=== PATIENT | female | born 1955 | race Caucasian/White ===

== ENCOUNTER → 2017-01-18 | Outpatient (REF) | payer MEDICARE, OTHER | LOC: M LAB REF 15:08 | PROVIDERS: ATTEND Nurse Practitioner Family | DX: E83.52 Hypercalcemia (principal) ==

== ENCOUNTER 2017-04-21 18:51 | Emergency (ER) | payer MEDICARE, OTHER ==
[2017-04-21] MEDS: METOPROLOL 5 MG/5 ML VIAL IV ×2 (19:09→20:40)
[2017-04-21] MEDS: ASPIRIN 81 MG CHEW TABLET PO (19:15)
[2017-04-21 19:36] LABS: BASO % 0.2 % (0.0-1.0); EOS # 0.1 10^3/uL (0.0-0.50); HEMATOCRIT 36.6 % (36.0-47.0); HEMOGLOBIN 12.3 g/dl (12.0-16.0); IMMATURE GRANULOCYTE % 0.2 % (0-0); LYMPH # 1.9 10^3/uL (1.5-4.5); LYMPH % 21.2 % (24.0-44.0); MEAN CORPUSCULAR HEMOGLOBIN 32.7 pg (27.0-33.0); MEAN CORPUSCULAR HGB CONC 33.6 g/dl (32.0-36.5); MEAN CORPUSCULAR VOLUME 97.3 fl (80.0-96.0); MONO # 0.6 10^3/uL (0.0-0.8); MONO % 6.8 % (0.0-5.0); NEUTROPHILS # 6.2 10^3/uL (1.8-7.7); NEUTROPHILS % 70.6 % (36.0-66.0); PLATELET COUNT, AUTOMATED 266 10^3/uL (150-450); RED BLOOD COUNT 3.76 10^6/uL (4.00-5.40); RED CELL DISTRIBUTION WIDTH 13.5 % (11.5-14.5); WHITE BLOOD COUNT 8.8 10^3/uL (4.0-10.0)
[2017-04-21 19:43] LABS: INR 2.33; PROTHROMBIN TIME 26.5 SECONDS (12.4-14.5)
[2017-04-21 19:44] LABS: PARTIAL THROMBOPLASTIN TIME 54.9 SECONDS (26.8-37.9)
[2017-04-21 20:01] LABS: ALBUMIN 3.3 GM/DL (3.2-5.2); ALBUMIN/GLOBULIN RATIO 0.75 (1.00-1.93); ALKALINE PHOSPHATASE 99 U/L (45-117); ALT/SGPT 23 U/L (12-78); ANION GAP 9 MEQ/L (8-16); AST/SGOT 32 U/L (7-37); BILIRUBIN,DIRECT 0.1 MG/DL (0.0-0.2); BILIRUBIN,TOTAL 0.4 MG/DL (0.2-1.0); BLOOD UREA NITROGEN 21 MG/DL (7-18); CALCIUM LEVEL 10.3 MG/DL (8.8-10.2); CARBON DIOXIDE LEVEL 28 MEQ/L (21-32); CHLORIDE LEVEL 106 MEQ/L (98-107); CPK CREATINE PHOSPHOKINASE 53 U/L (26-192); CREATININE FOR GFR 1.01 MG/DL (0.55-1.02); GLOMERULAR FILTRATION RATE 59.1 (>45); GLUCOSE, FASTING 100 MG/DL (80-110); LIPASE 186 U/L (73-393); MB/CK RELATIVE INDEX 1.88 (< OR =4); NT-PRO BNP 886 PG/ML (<125); POTASSIUM SERUM 4.3 MEQ/L (3.5-5.1); SODIUM LEVEL 143 MEQ/L (136-145); TOTAL PROTEIN 7.7 GM/DL (6.4-8.2); TROPONIN I < 0.02 NG/ML (< 0.10)
[2017-04-21] MEDS ORDERED: ISOVUE-370 76% 100ML VIAL (Q9967) As Ordered (20:17)
[2017-04-21] MEDS: METOPROLOL SUCC *XL* 25MG TAB (TopROL *XL*) PO (22:00)
[2017-04-21] MEDS: FUROSEMIDE 20 MG/2 ML VIAL (J1940) IV (22:15)
== END 2017-04-21 22:47 | disposition home or self-care (01) ==
LOC: M ED 18:51
DX: I48.91 Unspecified atrial fibrillation (principal); R06.02 Shortness of breath; I82.509 Chronic embolism and thrombosis of unspecified deep veins of unspecified lower extremity; Z86.711 Personal history of pulmonary embolism; Z79.899 Other long term (current) drug therapy; Z79.01 Long term (current) use of anticoagulants; F17.210 Nicotine dependence, cigarettes, uncomplicated
CPT/HCPCS: Q9967

== ENCOUNTER → 2018-11-27 | Outpatient (REF) | payer MEDICARE, OTHER ==
[~2018-11-27] MED LIST: ACET-897 PO; ATOR1TAB21 PO; COUM1TAB17 PO; COUM2.5T17 PO; ECOT81TA5 PO; FLEC10TA GT; FLEC1TAB PO; FLUO20CA19 PO; HYDR25TAB PO; METH10TA PO; METO1TAB32 PO; METO1TAB87 PO; MV-M1TAB13 PO; RANI150T PO; RANI150T14 PO; SPIR1CAP INH; VITA-157 PO; VITAE40CA PO; WARF-23 PO; [UNRECOGNIZED DRUG - CODE] PO
== END ==
LOC: M LAB REF 12:31
PROVIDERS: ATTEND Nurse Practitioner Family
DX: E83.52 Hypercalcemia (principal)

== ENCOUNTER 2019-02-22 10:56 | Emergency (ER) | payer MEDICARE, OTHER ==
[~2019-02-22] VITALS: Ht 165.1 cm; Wt 102.3 kg
[~2019-02-22 10:56] MED LIST changes: -ACET-897 PO; -ATOR1TAB21 PO; -ECOT81TA5 PO; -FLEC1TAB PO; -FLUO20CA19 PO; -HYDR25TAB PO; -METH10TA PO; -METO1TAB87 PO; -MV-M1TAB13 PO; -RANI150T14 PO; -SPIR1CAP INH; -VITA-157 PO; -VITAE40CA PO; -WARF-23 PO; -[UNRECOGNIZED DRUG - CODE] PO
[2019-02-22 11:36] LABS: BASO % 0.2 % (0.0-1.0); EOS # 0.1 10^3/uL (0.0-0.5); EOS % 1.1 % (0.0-3.0); HEMOGLOBIN 11.4 g/dl (12.0-15.5); LYMPH # 1.1 10^3/uL (1.5-5.0); LYMPH % 19.7 % (24.0-44.0); MEAN CORPUSCULAR HGB CONC 31.7 g/dl (32.0-36.5); MEAN CORPUSCULAR VOLUME 104.3 fl (80.0-96.0); MONO # 0.4 10^3/uL (0.0-0.8); MONO % 7.9 % (0.0-5.0); NEUTROPHILS # 3.9 10^3/uL (1.5-8.5); NEUTROPHILS % 70.7 % (36.0-66.0); PLATELET COUNT, AUTOMATED 214 10^3/uL (150-450); RED BLOOD COUNT 3.45 10^6/uL (4.00-5.40); WHITE BLOOD COUNT 5.5 10^3/uL (4.0-10.0)
--- NOTE | 2019-02-22 11:39 | REP ---
Portable chest x-ray: Single view. History: Chest pain. Comparison chest x-ray: April 21, 2017. Findings: There is moderate cardiac enlargement again noted. There is some linear fibrosis in the left perihilar region and left base unchanged. Chronic increased markings seen in the right base as well. No acute infiltrate is seen. Pulmonary vasculature is cephalized. No pleural effusion seen. Impression: Moderate cardiac enlargement. Left perihilar and bibasilar linear scarring. Pulmonary vascular cephalization. No evidence of pulmonary edema or pleural effusion. Electronically Signed by Hubert Rodriguez MD 02/22/2019 11:31 A
[2019-02-22] MEDS ORDERED: VITA-157 PO (11:41)
[2019-02-22] MEDS ORDERED: HYDR25TAB PO (11:41)
[2019-02-22] MEDS ORDERED: METH10TA PO (11:41)
[2019-02-22] MEDS ORDERED: SPIR1CAP INH (11:41)
[2019-02-22] MEDS ORDERED: MV-M1TAB13 PO (11:41)
[2019-02-22] MEDS ORDERED: ECOT81TA5 PO (11:41)
[2019-02-22] MEDS ORDERED: [UNRECOGNIZED DRUG - CODE] PO (11:41)
[2019-02-22] MEDS ORDERED: RANI150T14 PO (11:41)
[2019-02-22] MEDS ORDERED: FLUO20CA19 PO (11:41)
[2019-02-22] MEDS ORDERED: VITAE40CA PO (11:41)
[2019-02-22] MEDS ORDERED: ATOR1TAB21 PO (11:41)
[2019-02-22] MEDS ORDERED: WARF-23 PO (11:41)
[2019-02-22] MEDS ORDERED: ACET-897 PO (11:41)
[2019-02-22] MEDS ORDERED: COUM1TAB17 PO (11:41)
[2019-02-22] MEDS ORDERED: METO1TAB87 PO (11:41)
[2019-02-22] MEDS ORDERED: FLEC1TAB PO (11:41)
[2019-02-22] MEDS ORDERED: ASPIRIN 81 MG CHEW TABLET PO ONE (12:30)
[2019-02-22] MEDS: NITROGLYCERIN 0.4 MG SUBL TABLET SL PRN ×2 (12:33→12:42)
[2019-02-22 12:42] VITALS: BP 122/58
[2019-02-22] MEDS ORDERED: ACETAMINOPHEN TAB 650MG DOSE (2X325MG) PO ONE (12:45)
[2019-02-22 13:14] LABS: BLOOD UREA NITROGEN 17 MG/DL (7-18); CARBON DIOXIDE LEVEL 24 MEQ/L (21-32); CHLORIDE LEVEL 111 MEQ/L (98-107); CK-MB VALUE MASS < 1.0 NG/ML (<3.6); CPK CREATINE PHOSPHOKINASE 49 U/L (26-192); CREATININE FOR GFR 0.76 MG/DL (0.55-1.30); FREE T4 1.22 NG/DL (0.76-1.46); GLOMERULAR FILTRATION RATE > 60.0 (>45); GLUCOSE, FASTING 86 MG/DL (70-100); MAGNESIUM LEVEL 1.7 MG/DL (1.8-2.4); MB/CK RELATIVE INDEX 2.04 (< OR =4); POTASSIUM SERUM 4.4 MEQ/L (3.5-5.1); SODIUM LEVEL 145 MEQ/L (136-145); TROPONIN I < 0.02 NG/ML (< 0.10)
[2019-02-22] MEDS ORDERED: ISOVUE-370 76% 100ML VIAL (Q9967) As Ordered ONE (13:27)
[2019-02-22] MEDS ORDERED: MAGNESIUM OXIDE 400 MG TAB (MAG-OX) PO ONE (13:30)
--- NOTE | 2019-02-22 17:43 | REP ---
CT pulmonary angiogram: With IV contrast. History: Chest pain and shortness of breath. Comparison studies: Comparison study April 21, 2017. Contrast dose: 75 ML of Isovue [address] technique: Helical scanning is acquired and overlapping 1.5 mm and contiguous 3 mm axial images are reformatted. In addition, maximum intensity projection and multiplanar re-formation images are generated in sagittal and coronal imaging projections. CT pulmonary angiographic findings: There is good opacification of the pulmonary arterial tree. There is no CT evidence of pulmonary embolism. No evidence of aortic aneurysm or dissection is seen. There is no pleural or pericardial effusion. There is a band of linear atelectasis anteriorly in the left upper lobe. There is a similar linear band of atelectasis in the right middle lobe. No other pulmonary opacity is seen. There is linear fibrosis in the left lateral pleural angle posteriorly. There are stable bilateral hilar lymph nodes. No mediastinal adenopathy is seen. There is an aorticopulmonary window region lymph node which is unchanged showing short axis dimension of 8 mm. No bony destructive lesion is appreciated. The thyroid gland is moderately enlarged and virtually envelops the trachea circumferentially above the thoracic inlet. This appears to be unchanged. There are clips in the gallbladder fossa. There is a low-density nodule in the left adrenal gland measuring 3.2 x 2.2 cm. This appears to be unchanged from prior study of April 21, 2017. Impression: No CT evidence of pulmonary embolism. Cardiomegaly is observed unchanged. There are bilateral discoid atelectatic changes. Moderate goiter is seen at the thoracic inlet nearly surrounding the trachea unchanged. Scattered stable hilar and mediastinal lymph nodes. No acute infiltrate. Electronically Signed by Hubert Rodriguez MD 02/22/2019 06:43 P
[2019-02-22 17:55] LABS: CK-MB VALUE MASS < 1.0 NG/ML (<3.6); CPK CREATINE PHOSPHOKINASE 45 U/L (26-192); MB/CK RELATIVE INDEX 2.22 (< OR =4); TROPONIN I < 0.02 NG/ML (< 0.10)
[2019-02-22 18:44] VITALS: BP 139/61
--- NOTE | 2019-02-23 10:37 | ED PDOC ---
Post-Departure Follow-Up dr pelaez faxed cat chest for fu Italo Obregon MD Feb 23, 2019 10:37
--- NOTE | 2019-02-23 13:02 | ECGEPIP ---
[facility] - ED Test Date: 2019-02-22 Pat Name: JUAN CARLOS SMITH Department: Room: - Gender: Female Orthopaedic Physician Assistant: ABI : 1955 Requested By: DOREEN Dewitt Order Number: [id number] Reading MD: Dionne Rose Measurements Intervals [place] Rate: 61 P: 65 W[place]: 192 QRS: 132 QRSD: 172 T: 43 QT: 471 QTc: 478 Interpretive Statements SINUS RHYTHM INDETERMINATE AXIS RIGHT BUNDLE BRANCH BLOCK PRIOR ATRIAL FIBRILLATION 04/21/17 Electronically Signed on 02-23-2019 13:01:40 EST by Dionne Rose
--- NOTE | 2019-02-23 13:07 | ECGEPIP ---
[facility] - ED Test Date: 2019-02-22 Pat Name: JUAN CARLOS SMITH Department: Room: - Gender: Female Clerk Carrier: CT : 1955 Requested By: JERONIMO Cope Order Number: [id number] Reading MD: Dionne Rose Measurements Intervals [place] Rate: 58 P: 64 ID: 187 QRS: 60 QRSD: 166 T: 3 QT: 458 QTc: 451 Interpretive Statements SINUS BRADYCARDIA WITH OCCASIONAL VENTRICULAR PREMATURE COMPLEXES INDETERMINATE AXIS RIGHT BUNDLE BRANCH BLOCK PROLONGED QTC COMPARED 02/22/19 Electronically Signed on 02-23-2019 13:07:18 EST by Dionne Rose
[2019-02-27 00:06] LABS: FLECAINIDE LEVEL 0.24 ug/mL (0.20-1.00)
== END 2019-02-22 18:47 | disposition home or self-care (01) ==
LOC: M ED 10:56
DX: R00.2 Palpitations (principal); R07.9 Chest pain, unspecified; R00.1 Bradycardia, unspecified; I45.10 Unspecified right bundle-branch block; I51.7 Cardiomegaly; I28.8 Other diseases of pulmonary vessels; I48.91 Unspecified atrial fibrillation; K21.9 Gastro-esophageal reflux disease without esophagitis; M54.9 Dorsalgia, unspecified; Z86.711 Personal history of pulmonary embolism; Z82.49 Family history of ischemic heart disease and other diseases of the circulatory system; Z79.82 Long term (current) use of aspirin; Z79.01 Long term (current) use of anticoagulants; Z79.899 Other long term (current) drug therapy; Z88.6 Allergy status to analgesic agent
CPT/HCPCS: 36415; 71045; 71275; 80048; 82550; 82553; 83735; 84100; 84439; 84443; 84484; 85025; 93005; 93041; 94760; 99285; G0480; Q9967

== ENCOUNTER → 2019-04-24 | Outpatient (REF) | payer MEDICARE, OTHER ==
[~2019-04-24] MED LIST changes: +ACET-897 PO; +ATOR1TAB21 PO; +ECOT81TA5 PO; +FLEC1TAB PO; +FLUO20CA19 PO; +HYDR25TAB PO; +METH10TA PO; +METO1TAB87 PO; +MV-M1TAB13 PO; +RANI150T14 PO; +SPIR1CAP INH; +VITA-157 PO; +VITAE40CA PO; +WARF-23 PO; +[UNRECOGNIZED DRUG - CODE] PO
== END ==
LOC: M LAB REF 16:43
PROVIDERS: ATTEND Nurse Practitioner Family
DX: E83.52 Hypercalcemia (principal)

== ENCOUNTER 2019-06-27 10:27 | Emergency (ER) | payer MEDICARE, OTHER ==
[~2019-06-27] VITALS: Ht 167.6 cm; Wt 106.6 kg
[~2019-06-27 10:27] MED LIST changes: -FLUO20CA19 PO; +FLUO20CA22 PO; +VITA-1 PO; -VITAE40CA PO
[2019-06-27] MEDS ORDERED: FAMO40TA3 (10:55)
[2019-06-27 11:08] LABS: BASO % 0.4 % (0.0-1.0); EOS # 0.1 10^3/uL (0.0-0.5); EOS % 2.2 % (0.0-3.0); HEMATOCRIT 38.4 % (36.0-47.0); HEMOGLOBIN 12.1 g/dl (12.0-15.5); LYMPH # 1.2 10^3/uL (1.5-5.0); LYMPH % 23.2 % (24.0-44.0); MEAN CORPUSCULAR HEMOGLOBIN 32.4 pg (27.0-33.0); MEAN CORPUSCULAR HGB CONC 31.5 g/dl (32.0-36.5); MEAN CORPUSCULAR VOLUME 102.7 fl (80.0-96.0); MONO # 0.4 10^3/uL (0.0-0.8); MONO % 7.7 % (0.0-5.0); NEUTROPHILS # 3.5 10^3/uL (1.5-8.5); NEUTROPHILS % 66.1 % (36.0-66.0); PLATELET COUNT, AUTOMATED 204 10^3/uL (150-450); RED BLOOD COUNT 3.74 10^6/uL (4.00-5.40); WHITE BLOOD COUNT 5.4 10^3/uL (4.0-10.0)
[2019-06-27 11:20] LABS: INR 3.68; PARTIAL THROMBOPLASTIN TIME 43.9 SECONDS (25.0-38.4); PROTHROMBIN TIME 36.6 SECONDS (11.8-14.0)
[2019-06-27 11:28] LABS: ERYTHROCYTE SEDIMENTATION RATE 78 mm/hr (0-30)
--- NOTE | 2019-06-27 11:49 | REP ---
Clinical: Lower extremity pain and swelling . Technique: Kumari scale and color Doppler evaluation of the bilateral lower extremities using linear high frequency transducer. Findings: Ultrasound examination of the right and left lower extremity deep venous structures from the common femoral vein to the popliteal vein demonstrates normal compressibility flow and wave patterns in response to respiration and augmentation. There is no evidence for deep venous thrombosis. Incidental right De La Vega's cyst measures 5.5 x 1.8 x 4.8 cm. Impression: 1. No evidence for deep venous thrombosis bilateral lower extremities . 2. Right De La Vega's cyst. Electronically Signed by Edmond Rodriguez MD 06/27/2019 11:40 A
[2019-06-27 11:52] LABS: BLOOD UREA NITROGEN 16 MG/DL (7-18); C REACTIVE PROTEIN QUANTITATIV < 0.30 MG/DL (0.00-0.30); CALCIUM LEVEL 9.8 MG/DL (8.8-10.2); CARBON DIOXIDE LEVEL 26 MEQ/L (21-32); CHLORIDE LEVEL 108 MEQ/L (98-107); CREATININE FOR GFR 0.64 MG/DL (0.55-1.30); GLOMERULAR FILTRATION RATE > 60.0 (>45); GLUCOSE, FASTING 91 MG/DL (70-100); POTASSIUM SERUM 4.7 MEQ/L (3.5-5.1); SODIUM LEVEL 142 MEQ/L (136-145)
[2019-06-27 13:31] VITALS: BP 167/69
--- NOTE | 2019-06-27 22:30 | ECGEPIP ---
[facility] - ED Test Date: 2019-06-27 Pat Name: JUAN CARLOS SMITH Department: Room: - Gender: Female Levi Maker: [facility] : 1955 Requested By: BISMARK PATINO Order Number: [id number] Reading MD: Tien Morfin Measurements Intervals [place] Rate: 62 P: 76 SD: 178 QRS: 33 QRSD: 165 T: 9 QT: 453 QTc: 462 Interpretive Statements SINUS RHYTHM INDETERMINATE AXIS RIGHT BUNDLE BRANCH BLOCK SIMILAR TO 02/22/19 Electronically Signed on 06-27-2019 22:29:58 EDT by Tien Morfin
== END 2019-06-27 13:34 | disposition home or self-care (01) ==
LOC: M ED 10:27
DX: I45.10 Unspecified right bundle-branch block (principal); M71.21 Synovial cyst of popliteal space [Baker], right knee; R79.1 Abnormal coagulation profile; Z86.711 Personal history of pulmonary embolism; Z86.718 Personal history of other venous thrombosis and embolism; I48.91 Unspecified atrial fibrillation; I10 Essential (primary) hypertension; Z79.82 Long term (current) use of aspirin; Z79.01 Long term (current) use of anticoagulants; Z79.899 Other long term (current) drug therapy; Z88.6 Allergy status to analgesic agent

== ENCOUNTER → 2019-07-31 | Outpatient (REF) | payer MEDICARE, OTHER ==
[~2019-07-31] MED LIST changes: +FAMO40TA3
== END ==
LOC: M LAB REF 16:16
PROVIDERS: ATTEND Internal Medicine
DX: I48.20 Chronic atrial fibrillation, unspecified (principal)

== ENCOUNTER 2019-10-01 12:20 | Inpatient (IN) | payer MEDICARE, OTHER ==
[~2019-10-01] VITALS: Ht 167.6 cm; Wt 104.2 kg
[~2019-10-01 12:20] MED LIST changes: -VITA-1 PO; +VITA-259 PO
[2019-10-01] MEDS ORDERED: FURO20TA2 (12:33)
[2019-10-01] MEDS ORDERED: DIGO0.253 (12:33)
[2019-10-01 13:03] LABS: HEMATOCRIT 39.4 % (36.0-47.0); HEMOGLOBIN 12.8 g/dl (12.0-15.5); MEAN CORPUSCULAR HEMOGLOBIN 32.7 pg (27.0-33.0); MEAN CORPUSCULAR HGB CONC 32.5 g/dl (32.0-36.5); MEAN CORPUSCULAR VOLUME 100.5 fl (80.0-96.0); PLATELET COUNT, AUTOMATED 217 10^3/uL (150-450); RED BLOOD COUNT 3.92 10^6/uL (4.00-5.40); WHITE BLOOD COUNT 13.2 10^3/uL (4.0-10.0)
--- NOTE | 2019-10-01 13:18 | REP ---
Clinical: Pain. Trauma. Technique: Internal rotation, external rotation, and Y view of the right shoulder. Findings: Mild/moderate arthritic degenerative changes include cortical irregularity and spurring at the acromioclavicular joint as well as blunting and calcification to the glenoid rim with osteophyte along the inferior border. The subacromial space is normal. No acute fracture or dislocation. Impression: Mild/moderate arthritic degenerative changes. No obvious acute fracture or dislocation. Electronically Signed by Edmond Rodriguez MD 10/01/2019 01:09 P
[2019-10-01 13:33] LABS: ERYTHROCYTE SEDIMENTATION RATE > 140 mm/hr (0-30)
[2019-10-01 13:45] LABS: BLOOD UREA NITROGEN 14 MG/DL (7-18); CALCIUM LEVEL 10.8 MG/DL (8.8-10.2); CARBON DIOXIDE LEVEL 25 MEQ/L (21-32); CHLORIDE LEVEL 107 MEQ/L (98-107); CREATININE FOR GFR 0.78 MG/DL (0.55-1.30); GLOMERULAR FILTRATION RATE > 60.0 (>45); GLUCOSE, FASTING 133 MG/DL (70-100); POTASSIUM SERUM 4.1 MEQ/L (3.5-5.1); SODIUM LEVEL 138 MEQ/L (136-145)
[2019-10-01] MEDS ORDERED: PERCOCET 5MG/325MG TAB PO ONE (13:45)
--- NOTE | 2019-10-01 14:42 | REP ---
Clinical: Right upper extremity pain and swelling with history of deep venous thrombosis . Technique: Kumari scale and color Doppler evaluation right upper extremity using linear high frequency transducer. Findings: Ultrasound examination of the right upper extremity deep venous structures demonstrates normal jugular, subclavian, axillary, brachial, basilic, and cephalic veins. There is no evidence for deep venous thrombosis. Impression: No evidence for deep venous thrombosis. Electronically Signed by Edmond Rodriguez MD 10/01/2019 02:34 P
[2019-10-01 14:51] LABS: INR 3.31; PROTHROMBIN TIME 33.6 SECONDS (11.8-14.0)
--- NOTE | 2019-10-01 17:06 | REP ---
Clinical: Trauma. Technique: Single axillary view of the right shoulder. Findings: Glenohumeral joint is in normal position. No obvious acute fracture dislocation identified. Impression: No acute fracture or dislocation appreciated. Electronically Signed by Edmond Rodriguez MD 10/01/2019 04:57 P
[2019-10-01] MEDS: ATORVASTATIN 20 MG TAB PO SCH (18:00)
--- NOTE | 2019-10-01 19:43 | REPVR ---
PROCEDURE INFORMATION: Exam: MR Right Upper Extremity Joint Without Contrast; Shoulder Exam date and time: 10/01/2019 6:10 PM Age: 64 years old Clinical indication: Other: Pain and fever; Patient HX: Best images possible, attempted multiple times; Additional info: Pain right shoulder/fever TECHNIQUE: Imaging protocol: MR of the Right upper extremity without contrast. Exam focused on the shoulder. 3D rendering: MIP and/or 3D reconstructed images were created by the technologist. COMPARISON: CR Shoulder 1 view 10/01/2019 4:44 PM FINDINGS: Bones and cartilage: No acute fracture. No dislocation. No high-grade chondral defects are seen. Minimal cystic change and marrow edema in the greater tuberosity. Joint spaces: No joint effusion. Glenoid labrum: There is a multi directional inferior labral tear from 4:00 to 7:00 o'clock. Posterior superior labrum is diminutive. Supraspinatus tendon: There is a tear of the posterior supraspinatus there is a full-thickness insertional tear of the mid to posterior supraspinatus tendon, with up to 14 mm of retraction. This tear measures 9 mm in anterior-posterior dimension. Infraspinatus tendon: Unremarkable. No evidence of tear. Subscapularis tendon: Unremarkable. No evidence of tear. Teres minor tendon: Unremarkable. No evidence of tear. Tendon of biceps brachii: Unremarkable. No evidence of tear. Glenohumeral ligaments: Edematous shoulder joint capsule. There is at least partial tearing of the glenoid attachment of the anterior band inferior glenohumeral ligament and humeral attachment of the posterior band inferior glenohumeral ligament. Muscles: There is edema along the deep margin of the subscapularis muscle and less so within the remainder of the muscle fibers. This could be from a low-grade muscle strain, although myositis could also cause this appearance. Less extensive edema is seen in the remainder of the rotator cuff musculature. Minimal edema is seen in the deltoid muscle. There is also additional edema which is mild in the teres major and latissimus dorsi muscles, and small amount of fluid tracking along the fascial planes between rotator cuff musculature as well as around the teres major and latissimus dorsi muscles. Soft tissues: There is a large complex shoulder joint effusion with extensive debris and severe synovitis. There is also a large amount of complex fluid with debris and septations in the subacromial/subdeltoid bursa as well as the subcoracoid bursa, distending these bursae, communicating through the supraspinatus tendon tear. Fluid tracks in a geyser phenomenon into the acromioclavicular joint, and there is capsular edema at the acromioclavicular joint. IMPRESSION: 1. Large complex shoulder joint effusion with debris and septations, with similar complex fluid distending the subacromial/subdeltoid and subcoracoid bursitis. Findings could be related to the full-thickness supraspinatus insertional tendon tear with intra-articular and bursal blood products. However, in the setting of fever and shoulder pain, concern is raised for septic arthritis and septic bursitis, which cannot be excluded. Recommend joint/bursal aspiration. 2. Multifocal muscle edema about the shoulder joint, most pronounced in the deep fibers of the subscapularis muscle, and also including the teres major and latissimus dorsi muscles. Small amount of fluid tracking along fascial plane surrounding these muscles. Findings could be from myositis and a component of nonspecific fasciitis. However, muscle strains could alternatively cause this appearance. 3. At least partial tears of the anterior and posterior bands of the inferior glenohumeral ligament. 4. Complex inferior labral tear. 5. Complex bursal fluid appears to track into the acromioclavicular joint with implied disruption of at least the inferior acromioclavicular ligament. THIS REPORT CONTAINS FINDINGS THAT MAY BE CRITICAL TO PATIENT CARE. The findings were verbally communicated via telephone conference with WENDY Carpio, at 7:19 PM EDT on 10/01/2019. The findings were acknowledged and understood. Electronically signed by: Amanda Diop On 10/01/2019 19:43:02 PM
[2019-10-01] MEDS ORDERED: OXYCODONE/APAP 5MG/325MG(BULK FOR ED) 1 TABLET PO ONE (20:00)
[2019-10-01] MEDS ORDERED: PHYTONADIONE INJection 5 MG in NS 50 ML IV STA (20:40)
[2019-10-01] MEDS ORDERED: FURO20TA2 PO (20:59)
[2019-10-01] MEDS ORDERED: WARF-23 PO ×2 (20:59)
[2019-10-01] MEDS ORDERED: METH10TA PO (20:59)
[2019-10-01] MEDS ORDERED: RANI15TA PO (20:59)
[2019-10-01] MEDS ORDERED: METO1TAB87 PO (20:59)
[2019-10-01] MEDS ORDERED: FLEC1TAB PO (20:59)
[2019-10-01] MEDS ORDERED: VITA400C53 PO (20:59)
[2019-10-01] MEDS ORDERED: DIGO0.253 PO (20:59)
[2019-10-01] MEDS ORDERED: ATOR1TAB21 PO (20:59)
[2019-10-01] MEDS ORDERED: FLUO20CA20 PO (20:59)
[2019-10-01] MEDS ORDERED: FAMO40TA3 PO (20:59)
[2019-10-01] MEDS ORDERED: HYDR25TAB PO (20:59)
[2019-10-01] MEDS ORDERED: VITMTA PO (20:59)
[2019-10-01] MEDS ORDERED: ECOT81TA5 PO (20:59)
[2019-10-01] MEDS ORDERED: METOPROLOL TART 25 MG TABLET PO SCH (21:00)
[2019-10-01] MEDS ORDERED: MIDAZOLAM INJ 2MG/2ML VIAL (J2250 PER 1MG) As Ordered ONE (21:49)
[2019-10-01] MEDS ORDERED: fentaNYL 100 MCG/2 ML INJECTION (J3010) As Ordered ONE (21:49)
[2019-10-01] MEDS ORDERED: dexameTHASONE 4 MG/ML 1ML VIAL (J1100 PER 1MG) As Ordered ONE (21:49)
[2019-10-01] MEDS ORDERED: ROCURONIUM BROMIDE 50 MG/5 ML VIAL As Ordered ONE (21:49)
[2019-10-01] MEDS ORDERED: LIDOCAINE 2% 100MG/5ML SDV (FOR ANES.) As Ordered ONE (21:49)
[2019-10-01] MEDS ORDERED: propofoL 200 MG/20 ML VIAL As Ordered ONE (21:49)
[2019-10-01] MEDS ORDERED: ONDANSETRON 4MG/2ML VIAL As Ordered ONE (21:49)
[2019-10-01] MEDS ORDERED: EPINEPHrine 1MG/ML INJ 30ML MD-VIAL As Ordered ONE (21:53)
[2019-10-01] MEDS ORDERED: ceFAZolin 1GM VIAL (J0690 PER 500MG) As Ordered ONE (21:53)
[2019-10-01] MEDS ORDERED: ceFAZolin 2 GM/D5W 50 ML IV BAG (J0690 PER 500MG) As Ordered ONE (23:03)
[2019-10-01] MEDS ORDERED: ACETAMINOPHEN 1000MG 100ML IV BTL (OFIRMEV) (J0131 PER 10MG) As Ordered ONE (23:11)
[2019-10-02] VITALS (10 sets, daily range): BP systolic 141–173; BP diastolic 65–90
[2019-10-02] MEDS ORDERED: ONDANSETRON 4MG/2ML VIAL IV PRN ×2 (00:30)
[2019-10-02] MEDS ORDERED: oxyCODONE 5MG TAB PO PRN (00:30)
[2019-10-02] MEDS ORDERED: LR 1,000 ML IV SCH (00:30)
[2019-10-02] MEDS ORDERED: fentaNYL 100 MCG/2 ML INJECTION (J3010) IV PRN (00:30)
[2019-10-02] MEDS: LR 1,000 ML IV SCH ×2 (00:52→05:51)
[2019-10-02] MEDS: PERCOCET 5MG/325MG TAB PO PRN ×3 (01:30→21:13)
[2019-10-02] MEDS ORDERED: lisinopriL 20 MG TAB PO ONE (02:30)
[2019-10-02] MEDS: ceFAZolin SOD 2 GM in IV 1 EA IV SCH ×3 (05:51→21:12)
[2019-10-02] MEDS: FUROSEMIDE 20 MG TAB PO SCH (08:00)
[2019-10-02] MEDS: MULTIVITAMINS/MINERALS THERAP 1 TAB PO SCH (08:00)
[2019-10-02] MEDS: METOPROLOL TART 25 MG TABLET PO SCH ×2 (08:01→21:13)
[2019-10-02] MEDS: hydroCHLOROthiazide 25 MG TAB PO SCH (08:01)
--- NOTE | 2019-10-02 10:58 | IPN ---
DATE: 10/01/2019 CHIEF COMPLAINT: Followup right shoulder stat MRI. HISTORY OF PRESENT ILLNESS: 64-year-old female who presented with gradual worsening of right shoulder pain. She had elevated inflammatory markers and low grade fever. She also had elevated INR 3.3. So I ordered a stat CT scan to rule out spontaneous hematoma of her shoulder versus septic arthritis/infection. MRI was read by myself as well as radiologist motion picture equipment supervisor. This shows large complex shoulder joint effusion and debris and septations with similar complex with a distended subacromial, subdeltoid, subcoracoid bursa. There is also multifocal muscle edema about the shoulder joint most pronounced in the deep fibers the subscapularis muscle traction also including the teres major and the latissimus dorsi muscle. Findings could be from myositis of bone with nonspecific fasciitis. ASSESSMENT/PLAN: This 64-year-old female I am quite concerned that she could have a septic arthritis. I think it is zhao, despite her elevated INR, to go ahead with stat emergency irrigation debridement and to minimize the potential risk further hematoma or bleeding or her shoulder. I have communicated this to Dr. Cameron, the material stress tester motion picture equipment supervisor. He has reviewed her chart. She does have history of multiple pulmonary embolus in the past. I also spoke to the pharmacist motion picture equipment supervisor, Rocael, about potentially considering Kcentra prothrombin complex concentrate for immediate reversal of her high INR. It was decided in consultation with the anesthetists and the pharmacist motion picture equipment supervisor that given her past history of multiple pulmonary embolisms and the procoagulant effect of this medication, this would likely be unwise and more prudent to proceed with IV vitamin K 5 mg which I have ordered on STAT timeline. We will recheck the INR prior to surgery. I have let the operating room nurses know that this is a stat emergency case. I have given them the name. I have talked to the patient. I explained pros, cons, risks, benefits of doing nothing versus going to the surgery for irrigation and debridement of her shoulder. She will need cultures drawn, admission the hospital, possible intravenous antibiotics. Risks of surgery include but not limited to infection pain, stiffness, weakness, damage to surrounding structures, neurovascular injury, higher than normal rate of bleeding, anesthetic complications, blood clots, and other risks as well as need for further surgery. She wished to go ahead and signed a consent for surgery and we will proceed to the operating room (OR).
--- NOTE | 2019-10-02 11:37 | RO ---
DATE OF PROCEDURE: 10/01/2019 PREOPERATIVE DIAGNOSIS: Right shoulder infection. POSTOPERATIVE DIAGNOSIS: Right shoulder infection. PLANNED PROCEDURE: Right shoulder arthroscopic irrigation, debridement and perioperative cultures. PROCEDURE: Right shoulder arthroscopic irrigation, debridement and perioperative cultures. SURGEON: Dr. Cody Paz CERAMIC DESIGNER: ANESTHESIA: OPERATIVE PREAMBLE: This is a 64-year-old female who had right shoulder pain increasing over 5 days. She had a low grade fever and positive white count inflammatory markers. MRI demonstrated intra-articular fluid collection. She had elevated INR. We gave vitamin K IV 5 mg and proceeded to surgery. I reiterated the risks in preoperative holding, marked upper extremity and proceeded to surgery. DESCRIPTION OF PROCEDURE: Patient was brought to operating theater. Antibiotics were held until after all cultures were obtained and sent. The patient was administered general anesthetic. They placed her right lateral decubitus with a beanbag positioner. Axillary roll was used. All bony prominences were padded. Sequential compression devices (SCDs) were used. The limb was prepped and draped in the usual sterile fashion allowing over 3 minutes prep solution drying time. 15 pounds tourniquet traction was used at the arm at 45 degrees of abduction. Preoperative time-out was performed to confirm the patient site and the surgery. I began by using an 18-gauge spinal needle to obtain culture fluid through the rotator interval intra-articularly in the joint. I obtained about 7 mL of viscous straw-colored fluid with some small aspects of white material. This was sent for stat Gram stain, culture and sensitivities, aerobics and anaerobics and cell count. These were in three separate bottles. I then inserted the arthroscope into the intra-articular portion the right shoulder. Thorough diagnostic arthroscopy was performed. There is moderate synovitis in the rotator interval. The culture tissue samples taken from the rotator interval. There is moderate osteoarthritis glenohumeral joint. Moderate fraying of the labrum. Biceps tendon appeared intact. There is undersurface anterior tearing of the supraspinatus tendon, full-thickness partial with for length of about 1.5 cm. Subscapularis tendon appeared normal. Rotator interval was completely debrided as was some mild to moderate synovitis just superior to the biceps tendon origin. I then inserted the arthroscope in the subacromial space. Again there was moderate bursitis. This was thoroughly debrided. I brought in the shaver through a lateral portal. I performed a complete bursectomy. I sent bursal tissue, tissue samples. Scope was withdrawn. Wound cleaned with wet and dry dressing. Portal sites closed with interrupted #3-0 Monocryl sutures and Steri-Strips applied with nonstick dressing, 4 x 8 gauze, ABD and overwrapped with cloth tape. The patient's upper extremity was placed into a sling. The patient was woken up from general anesthetic, transferred off the operating table and taken postanesthetic care unit stable condition. Two grams IV Ancef administered after cultures were sent. PLAN: The patient is being admitted to the hospital by the hospitalist service. Consult infectious disease. Followup on the cultures. We will continue on intravenous Ancef every 8 hours 2 grams until cultures return.
--- NOTE | 2019-10-02 16:41 | HPE ---
DATE OF ADMISSION: 10/01/2019 CHIEF COMPLAINT: Right shoulder pain. HISTORY OF PRESENT ILLNESS: This 64-year-old female complains of five days' history of right shoulder pain. There is no dislocation. There is no recent trauma. No recent penetrating injuries to the shoulder or breaks in the skin. No recent other painful joints. She feels like it is increasing pain with movement. It is minimal pain at rest, just a dull ache but with moving it is quite severe, painful more in the anterior aspect of the shoulder. She feels otherwise well. She did not even know that she had fevers before presenting to a minor treatment clinic and being referred her for a fever of 100.8 apparently according to the emergency department (ED) provider. She feels well aside from she had a bad migraine last which is now about four days ago. She has not had any other chills, nausea, vomiting, dysuria, or any other symptoms beyond right shoulder pain. She has never had anything like this in the past. PAST MEDICAL HISTORY: Includes hypertension, left leg deep vein thrombosis (DVT). She has a number of vein surgeries in the lower extremity and she is on warfarin chronically for this. MEDICATIONS: She takes warfarin 2.5 mg three times a week and on the alternate days 5 mg. She is also on flecainide, furosemide. ALLERGIES: IBUPROFEN. PAST SURGICAL HISTORY: She has had what sounds like varicose vein surgery. 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 She was born in [place]. unfortunately three and a half years ago. She smokes five cigarettes a day. She does not use IV drugs or street drugs. She consumes wine occasionally for alcohol. PHYSICAL EXAMINATION: This is a 64-year-old female. She looks overall in no acute distress. Her temperature here in the emergency department is 99.9 and 99.3. Blood pressure 165/92. Pulse rate 88, highest pulse 105. Respiratory rate 16. Saturating 95% on room air. Inspection of her upper extremities was normal aside from the right shoulder. There are no other painful joints to palpation or range of motion testing. In terms of her right upper extremity, there appears to be some mild to moderate fullness of the anterior aspect of right shoulder. This is painful to palpate. This is not warm or hot to touch. She does have some mild warmth in her right hand. She has no pain along the clavicle. There is some moderate pain posteriorly in the shoulder as well. There is no pain down at the elbow. Forearm compartments are soft. She has normal sensation and motor function to the MRU and AIN/PIN nerve distributions of the right hand. Strong radial pulse, pulse regular. Active range of motion is quite painful for her in terms of the anterior aspect of the shoulder. There is no obvious pain with micromotion. I am able to internally and externally rotate the shoulder 15-20 degrees. However, beyond 20 degrees of external rotation, it is exquisitely tender in the anterior aspect of the shoulder. She is not able to forward elevate. This is also painful for her. IMAGING STUDIES: Right shoulder AP, internal and external rotation view plus scapular Y and axillary lateral which I have ordered in addition show what appears to be some mild pseud subluxation inferiorly in the shoulder but no obvious shoulder joint dislocation. There is no obvious fracture. Ultrasound was negative for DVT of the upper extremity. LABORATORY DATA: White blood cell count 13.3. ESR over 140. Chemistry revealed CRP of 10. Platelets 217. There is no differential for the white blood cell count unfortunately. Her PT was 33.6 and INR was elevated at 3.31. ASSESSMENT AND PLAN: This is a 64-year-old female with increased fevers, white count, and inflammatory markers. The concern is certainly that she could have a superficial or deep infection in the joint of her right shoulder. However, there is no obvious redness or warmth of the shoulder on examination and her international normalized ratio (INR) is quite elevated at 3.31. Also on the differential would be an acute spontaneous anticoagulant-induced hematoma of the right shoulder that could be presenting in a similar fashion either deep inside the joint or superficially anteriorly. Overall, I have a low to moderate suspicion that this is truly a septic joint given my clinical examination and to acutely intervene with an urgent irrigation and debridement with her INR being over 3, may also be extremely dangerous in this patient. In addition, performing a stat aspiration of her shoulder may simply exacerbate a hematoma and cause her more problems. As such, my impression is that the best next investigation would in fact be a stat MRI of her right shoulder. I have asked the provider taking care of her to order this test and had her put it into the computer on a stat basis. I will follow this test up myself as well as asking her to call me as soon as the test has been performed so that I can review the results and see the radiologist's interpretation as well on an urgent timeline.
[2019-10-02] MEDS: ATORVASTATIN 20 MG TAB PO SCH (16:57)
[2019-10-02 22:40] LABS: INR 1.39; PROTHROMBIN TIME 16.8 SECONDS (11.8-14.0)
[2019-10-02] MEDS ORDERED: WARFARIN SOD 2.5MG TAB PO ONE (23:00)
[2019-10-03 02:00] VITALS: BP 153/76
[2019-10-03] MEDS: PERCOCET 5MG/325MG TAB PO PRN ×2 (05:29→21:19)
[2019-10-03] MEDS: ceFAZolin SOD 2 GM in IV 1 EA IV SCH (05:29)
[2019-10-03 05:52] LABS: INR 1.35; PROTHROMBIN TIME 16.4 SECONDS (11.8-14.0)
[2019-10-03 06:00] VITALS: BP 162/99
--- NOTE | 2019-10-03 08:02 | IPN ---
DATE: 10/03/2019 CHIEF COMPLAINT: Postoperative day 1.5 right shoulder irrigation and debridement for possible infection. HISTORY OF PRESENT ILLNESS:: This 64-year-old female presented with painful and swollen right shoulder. She had an elevated white blood cell count and inflammatory markers. It was decided to go ahead with irrigation and debridement for risk of a septic shoulder. She is doing well on the martinez. No concerns or complaints from her or the nursing staff. There is still pain to the right shoulder with movement and difficulty lifting the arm. PHYSICAL EXAMINATION: Well-appearing 64-year-old female. She is sitting upright. She appears comfortable. Bulky dressing was taken down. Portal sites are well apposed with the Steri-Strips. No redness, swelling or drainage. There is still pain with internal and external rotation of the arm. Normal sensation and motor function if the hand and MRU and AIN/PIN nerve distributions. Strong radial pulse. Hand is warm and well perfused. LABORATORY EXAMINATION: Repeat white blood cell count is pending as are inflammatory markers. INR was 1.35. Microbiology: Her blood cultures were positive for gram-positive cocci in clusters. Gram stain shows a few WBCs, a few RBCs. No organisms seen. Lab results due in 2-7 days. Anaerobic culture is pending. Pathology: The tissue samples are also pending. ASSESSMENT/PLAN: 64-year-old female. We will keep her on intravenous cefazolin until final cultures are back or until her inflammatory markers are trending down. Will repeat the CBC with white blood cell count and differential as well as CRP today to ensure clinical response. We will follow up on final cultures and pathology. We will start her back on warfarin. I have asked again the hospitalist service to assess this patient. I did talk to Dr. Watson initially within 20 minutes of completing the operation. However, unfortunately, they have not yet put any notes in the chart, so again I have asked Mimi, our nurse practitioner, to reach out to them today this morning. She has had pulmonary embolisms in the past so she is at high risk and we will place her back on her anticoagulation as soon as possible. Overall, my clinical sense is that this is still a moderate chance of having been an infection, but there is still also a chance this could have been a spontaneous hematoma in her shoulder that resulted in a synovitis and acute irritation of the shoulder. The patient can discontinue the sling. They should not shower over top of the incision. They will keep it clean and dry and I changed the bulky dressing myself today. Additionally, ideally one would be able to obtain an infectious disease consult for this woman; however, Dr. Barber is away this week and we will contact her at earliest possible time for her opinion as well.
[2019-10-03] MEDS: ASPIRIN 81 MG ENTERIC TAB PO SCH (08:33)
[2019-10-03] MEDS: FUROSEMIDE 20 MG TAB PO SCH (08:34)
[2019-10-03] MEDS: hydroCHLOROthiazide 25 MG TAB PO SCH (08:34)
[2019-10-03] MEDS: METOPROLOL TART 25 MG TABLET PO SCH ×2 (08:34→21:19)
[2019-10-03] MEDS: MULTIVITAMINS/MINERALS THERAP 1 TAB PO SCH (08:34)
[2019-10-03] MEDS ORDERED: PREVNAR 13 VACCINE SYRINGE IM ONE (09:00)
[2019-10-03 09:52] LABS: BASO % 0.2 % (0.0-1.0); EOS % 0.2 % (0.0-3.0); HEMATOCRIT 31.2 % (36.0-47.0); LYMPH # 1.2 10^3/uL (1.5-5.0); LYMPH % 13.1 % (24.0-44.0); MEAN CORPUSCULAR HEMOGLOBIN 33.1 pg (27.0-33.0); MEAN CORPUSCULAR HGB CONC 32.4 g/dl (32.0-36.5); MEAN CORPUSCULAR VOLUME 102.3 fl (80.0-96.0); MONO # 0.8 10^3/uL (0.0-0.8); MONO % 8.3 % (0.0-5.0); NEUTROPHILS # 7.3 10^3/uL (1.5-8.5); NEUTROPHILS % 77.8 % (36.0-66.0); PLATELET COUNT, AUTOMATED 195 10^3/uL (150-450); RED BLOOD COUNT 3.05 10^6/uL (4.00-5.40); WHITE BLOOD COUNT 9.4 10^3/uL (4.0-10.0)
[2019-10-03 09:59] LABS: HEMOGLOBIN 10.1 g/dl (12.0-15.5)
[2019-10-03] MEDS ORDERED: VANCOMYCIN HCL 1,000 MG, VIAL MATE ADAPTER 1 EACH in D5W 250 ML IV ONE (10:00)
[2019-10-03 10:20] LABS: ALBUMIN 2.2 GM/DL (3.2-5.2); ALT/SGPT 18 U/L (12-78); BILIRUBIN,TOTAL 0.5 MG/DL (0.2-1.0); BLOOD UREA NITROGEN 19 MG/DL (7-18); C REACTIVE PROTEIN QUANTITATIV 9.88 MG/DL (0.00-0.30); CALCIUM LEVEL 9.8 MG/DL (8.8-10.2); CARBON DIOXIDE LEVEL 28 MEQ/L (21-32); CHLORIDE LEVEL 107 MEQ/L (98-107); ERYTHROCYTE SEDIMENTATION RATE 127 mm/hr (0-30); GLOMERULAR FILTRATION RATE > 60.0 (>45); GLUCOSE, FASTING 131 MG/DL (70-100); POTASSIUM SERUM 3.6 MEQ/L (3.5-5.1); SODIUM LEVEL 141 MEQ/L (136-145); TOTAL PROTEIN 6.8 GM/DL (6.4-8.2)
[2019-10-03 11:21] VITALS: BP 150/72
[2019-10-03] MEDS: VANCOMYCIN HCL 1,000 MG, VIAL MATE ADAPTER 1 EACH in D5W 250 ML IV SCH ×2 (11:54→18:02)
--- NOTE | 2019-10-03 13:01 | HPEPDOC ---
[facility] Medical History & Physical Date of Admission Oct 02, 2019 Date of Service: Oct 03, 2019 Attending Physician: Rae Nunez MD History and Physical CONSULT: Medical management HISTORY OF PRESENT ILLNESS: Patient is a 64-year-old female with past medical history of hypertension, atrial fibrillation, GERD, history of pulmonary emboli, history of deep vein thrombosis who presented to [facility] emergency room on 10/02/2019 after having worsening right shoulder pain for 5 days. Pain was described as constant, sharp , 10/10, new to patient. She attempted to place hot and cold packs to help; however, nothing relieved the pain at home. Pain was worse with movement, improved with rest. The patient denied any recent trauma to the shoulder, other tender joints or history of joint pain like this. She went to urgent care first who then sent her to the emergency room for a fever 100.8F. In the ER, VS showed showed she was hypertensive and fever as high as 100.5F. Shoulder MRI showed large complex shoulder joint effusion with debris and septations, with similar complex fluid distending the subacromial/subdeltoid and subcoracoid bursitis. Findings were possibly related to the full-thickness supraspinatus insertional tendon tear with intra-articular and bursal blood products. But in the setting of fever and shoulder pain, concern was raised for septic arthritis and septic bursitis. Case was discussed with orthopedic surgery and patient was taken to OR for right shoulder arthroscopic irregation, debridement. Cultures and pathology was sent. Medicine was consulted to help manage. Upon initial evaluation of patient's labs on post-op day 2, she was found to have Gram positive cocci in clusters in 2 sets of blood cultures. HR was slightly elevated at 108, afebrile since admission. Patient's CRP and ESR were slightly improved from day of admission at 10 and 127. Post operative pain was controlled. The patient denied fevers, chills, n/v but admitted to continued lethargy. On exam, no murmur was appreciated on exam. Echocardiogram was ordered and patient was started on Vancomycin while all culture results were pending. She was switched to telemetry floor. ROS: Negative except for what is mentioned above. PAST MEDICAL HISTORY: 1. HTN 2. atrial fibrillation 3. GERD 4. Hx of PE 5. Hx of DVTs 6. obesity 7. Osteoarthritis PAST SURGICAL HISTORY: 1. Right shoulder surgery 2. Vein stripping in bilateral lower ext 3. Cholecystectomy 4. Tonsillectomy SOCIAL HISTORY: Smoker 6-7 cigarettes/day, 40 years. Social alcohol use, denies illicit drug use. Lives locally alone. Uses a walker to ambulate, she has no stairs in home. Full code. FAMILY HISTORY: Father: Lung disease. at 75 y/o Mother: Angina, CVA, HTN. 75 y/o ALLERGIES: Please see below. CURRENT MEDICATIONS: Please see below PHYSICAL EXAMINATION: VITAL SIGNS: Please see below CONSTITUTIONAL: No acute distress, resting comfortably, AAO x 3 EYES: PERRLA, EOM intact HENT, MOUTH: Normocephalic, atraumatic, moist mucous membranes NECK: SUPPLE, no JVD, no lymphadenopathy, no carotid bruit CV: tachycardic, irregularly irregular rhythm, S1S2 normal, no murmurs/rubs/gallops RESPIRATORY: Clear to auscultation bilaterally, no rales/rhonchi/wheezes GI: obese abdomen, BS positive in 4 quadrants, soft, nontender, nondistended, no rebound or guarding, no organomegaly : Deferred MUSCULOSKELETAL:Decreased ROM of right shoulder, painful to touch, multiple bruised areas with well healed incision sites- almost unnoticeable. No cyanosis, clubbing, joint deformity, extremity edema INTEGUMENTARY: Discoloration of bilateral lower ext, chronic. Intact, no rashes, no lesions, no erythema NEUROLOGIC: Cranial Nerves II-XII are intact, no focal deficits PSYCHIATRIC: Mood and affect are normal LABORATORY DATA: Please see below IMAGIN10/01/19: 1. Large complex shoulder joint effusion with debris and septations, with similar complex fluid distending the subacromial/subdeltoid and subcoracoid bursitis. Findings could be related to the full-thickness supraspinatus insertional tendon tear with intra-articular and bursal blood products. However, in the setting of fever and shoulder pain, concern is raised for septic arthritis and septic bursitis, which cannot be excluded. Recommend joint/bursal aspiration. 2. Multifocal muscle edema about the shoulder joint, most pronounced in the deep fibers of the subscapularis muscle, and also including the teres major and latissimus dorsi muscles. Small amount of fluid tracking along fascial plane surrounding these muscles. Findings could be from myositis and a component of nonspecific fasciitis. However, muscle strains could alternatively cause this appearance. 3. At least partial tears of the anterior and posterior bands of the inferior glenohumeral ligament. 4. Complex inferior labral tear. 5. Complex bursal fluid appears to track into the acromioclavicular joint with implied disruption of at least the inferior acromioclavicular ligament. ASSESSMENT: 64 y/o F admitted for right shoulder pain ruling out septic joint, sepsis, gram positive cocci bacteremia. PLAN: 1. Right shoulder pain r/o septic joint, post-op day 2 arthroscopic irrigation, debridement -Pain mod-severe with movement of shoulder -ESR, CRP slightly improved -Shoulder fluid cultures (bacterial and fungal) pending. Blood cultures: gram + cocci in clusters. -Switched to Vancomycin IV, f/u culture results and sensitivities. -Pain regimen PRN, PT/OT, can remove sling -Ortho primary 2. Gram positive cocci bacteremia, resolved sepsis. -HR >100, WBC on admission elevated. LA wnl -At this time, UA neg, no open skin ulcers/wounds and no respiratory concerns. Cannot r/o right shoulder as primary source of infection. -F/u results on cultures and sensitivities, echocardiogram to r/o endocarditis -C/w vancomycin for now. 3. Atrial fibrillation, controlled. -restarting home coumadin, -Bridge with lovenox 1 mg/kg Q12 hrs, c/w BB 4. HTN. -C/w home medications. 5. Hx of DVT, PE -INR subtherapeutic today -Resuming home coumadin, bridging with lovenox Q12H -Daily INR 6. GERD. -C/w home med 7. DVT px. -Lovenox, coumadin. Vital Signs Vital Signs Date Time Temp Pulse Resp B/P (MAP) Pulse Ox O2 Delivery O2 Flow Rate FiO2 10/03/19 11:21 97.3 71 16 150/72 (98) 97 Room Air 10/02/19 07:44 1.0 Laboratory Data Labs 24H Laboratory Tests 2 10/02/19 22:06: Prothrombin Time 16.8H, Prothromb Time International Ratio 1.39 10/03/19 05:29: Prothrombin Time 16.4H, Prothromb Time International Ratio 1.35 10/03/19 09:34: Immature Granulocyte % (Auto) 0.4, Neutrophils (%) (Auto) 77.8H, Lymphocytes (%) (Auto) 13.1L, Monocytes (%) (Auto) 8.3H, Eosinophils (%) (Auto) 0.2, Basophils (%) (Auto) 0.2, Neutrophils # (Auto) 7.3, Lymphocytes # (Auto) 1.2L, Monocytes # (Auto) 0.8, Eosinophils # (Auto) 0.0, Basophils # (Auto) 0.0, Nucleated Red Blood Cells % (auto) 0.0, Erythrocyte Sedimentation Rate 127H, Anion Gap 6L, Glomerular Filtration Rate > 60.0, Calcium Level 9.8, Total Bilirubin 0.5, Aspartate Amino Transf (AST/SGOT) 26, Alanine Aminotransferase (ALT/SGPT) 18, Alkaline Phosphatase 95, C-Reactive Protein, Quantitative 9.88H, Total Protein 6.8, Albumin 2.2L, Albumin/Globulin Ratio 0.5L 10/03/19 09:51: Lactic Acid Level 1.7 CBC/BMP Laboratory Tests 10/03/19 09:34 Microbiology Microbiology 10/01/19 Anaerobic Culture, Received Pending 10/01/19 Gram Stain - Final, Resulted 10/01/19 Body Fluid Culture, Resulted Pending 10/01/19 Respiratory Virus Panel (PCR) (KYRIE) - Final, Complete 10/01/19 Blood Culture - Preliminary, Resulted 10/01/19 Blood Culture - Preliminary, Resulted Home Medications Scheduled Aspirin (Ecotrin) 81 Mg Tablet.dr, 81 MG PO DAILY Atorvastatin Calcium (Atorvastatin Calcium) 20 Mg Tablet, 20 MG PO QPM Digoxin (Digoxin) 250 Mcg Tablet, 250 MCG PO QPM Famotidine (Famotidine) 40 Mg Tablet, 40 MG PO QPM Flecainide Acetate (Flecainide Acetate) 100 Mg Tablet, 100 MG PO BID Fluoxetine Hcl (Fluoxetine HCl) 20 Mg Capsule, 20 MG PO DAILY Furosemide (Furosemide) 20 Mg Tablet, 20 MG PO DAILY Guaifenesin (Mucus Relief) 400 Mg Tablet, 400 MG PO QHS Hydrochlorothiazide (Hydrochlorothiazide) 25 Mg Tablet, 12.5 MG PO DAILY Methimazole (Methimazole) 10 Mg Tablet, 10 MG PO DAILY Metoprolol Tartrate (Metoprolol Tartrate) 25 Mg Tablet, 25 MG PO BID Multivitamins (Thera M Plus Tablet) 1 Each Tablet, 1 TAB PO DAILY Ranitidine Hcl (Ranitidine HCl) 150 Mg Tablet, 1 TAB PO BID Vitamin E (Vitamin E) 400 Unit Capsule, 400 UNIT PO DAILY Warfarin Sodium (Warfarin Sodium) 5 Mg Tablet, 5 MG PO 3XW TUESDAY, TUESDAY AND TUESDAY AT QPM Scheduled PRN Acetaminophen (Tylenol Extra Strength) 500 Mg Tablet, 1,000 MG PO Q6H PRN for PAIN / FEVER Miscellaneous Medications Warfarin Sodium (Warfarin Sodium) 5 Mg Tablet, 2.5 MG PO TUESDAY, TUESDAY, TUESDAY AND TUESDAY AT QPM Allergies Coded Allergies: ibuprofen (Verified Adverse Reaction, Mild, GI, 10/01/19) A-FIB/CHADSVASC A-FIB History Current/History of A-Fib/PAF?: Yes Current PO Anticoag Therapy: Yes Age/Risk Factor Scoring CHADSVASC: CHADSVASC Response (Comments) Value Age Risk Factor Age 65-74 years old 1 Gender Risk Factor Female 1 Hx of CHF No 0 Hx of HTN Yes 1 Hx of Stroke/TIA/or VTE No 0 Hx of Diabetes No 0 Hx of Vascular Disease No 0 Total 3 Treatment Treatment ordered: Warfarin Rae Nunez MD Oct 03, 2019 13:01
[2019-10-03 14:00] VITALS: BP 140/72
[2019-10-03] MEDS ORDERED: ENOXAPARIN 100MG/1ML SYRINGE (J1650 PER 10MG) SC ONE (17:00)
[2019-10-03] MEDS: WARFARIN SOD 5MG TAB PO SCH (17:40)
[2019-10-03] MEDS: ATORVASTATIN 20 MG TAB PO SCH (17:41)
[2019-10-03 20:21] VITALS: BP 115/63
[2019-10-03 22:00] VITALS: BP 130/60
[2019-10-03] MEDS: MORPHINE 2 MG/ML 1ML VIAL (J2270) IV PRN (23:57)
[2019-10-04] MEDS ORDERED: NYSTATIN 100,000 UNITS/GM TOPICAL PWD 15 GM TOP ONE (01:15)
[2019-10-04] MEDS: VANCOMYCIN HCL 1,000 MG, VIAL MATE ADAPTER 1 EACH in D5W 250 ML IV SCH (03:18)
[2019-10-04 06:00] VITALS: BP 143/67
[2019-10-04 06:27] LABS: HEMATOCRIT 30.1 % (36.0-47.0); HEMOGLOBIN 9.6 g/dl (12.0-15.5); MEAN CORPUSCULAR HEMOGLOBIN 32.5 pg (27.0-33.0); MEAN CORPUSCULAR HGB CONC 31.9 g/dl (32.0-36.5); PLATELET COUNT, AUTOMATED 190 10^3/uL (150-450); RED BLOOD COUNT 2.95 10^6/uL (4.00-5.40); WHITE BLOOD COUNT 6.9 10^3/uL (4.0-10.0)
[2019-10-04 07:13] LABS: ALBUMIN 2.2 GM/DL (3.2-5.2); ALT/SGPT 18 U/L (12-78); BILIRUBIN,TOTAL 0.9 MG/DL (0.2-1.0); BLOOD UREA NITROGEN 18 MG/DL (7-18); C REACTIVE PROTEIN QUANTITATIV 7.65 MG/DL (0.00-0.30); CALCIUM LEVEL 9.7 MG/DL (8.8-10.2); CARBON DIOXIDE LEVEL 28 MEQ/L (21-32); CHLORIDE LEVEL 107 MEQ/L (98-107); CREATININE FOR GFR 0.65 MG/DL (0.55-1.30); GLOMERULAR FILTRATION RATE > 60.0 (>45); GLUCOSE, FASTING 92 MG/DL (70-100); POTASSIUM SERUM 3.8 MEQ/L (3.5-5.1); SODIUM LEVEL 140 MEQ/L (136-145); TOTAL PROTEIN 6.7 GM/DL (6.4-8.2)
[2019-10-04 07:19] LABS: ERYTHROCYTE SEDIMENTATION RATE 126 mm/hr (0-30)
[2019-10-04] MEDS: ACETAMINOPHEN TAB 650MG DOSE (2X325MG) PO PRN (08:15)
[2019-10-04] MEDS: ASPIRIN 81 MG ENTERIC TAB PO SCH (08:15)
[2019-10-04] MEDS: ENOXAPARIN 100MG/1ML SYRINGE (J1650 PER 10MG) SC SCH ×2 (08:15→20:37)
[2019-10-04] MEDS: METOPROLOL TART 25 MG TABLET PO SCH ×2 (08:16→20:37)
[2019-10-04] MEDS: FUROSEMIDE 20 MG TAB PO SCH (08:16)
[2019-10-04] MEDS: MULTIVITAMINS/MINERALS THERAP 1 TAB PO SCH (08:16)
[2019-10-04] MEDS: hydroCHLOROthiazide 25 MG TAB PO SCH (08:16)
[2019-10-04] MEDS: DOCUSATE SODIUM 100 MG CAP PO SCH ×2 (09:00→20:36)
[2019-10-04 12:30] LABS: INR 1.92; PROTHROMBIN TIME 21.7 SECONDS (11.8-14.0)
[2019-10-04] MEDS: NYSTATIN 100,000 UNITS/GM TOPICAL PWD 15 GM TOP SCH ×2 (12:41→20:37)
[2019-10-04] MEDS: VANCOMYCIN HCL 750 MG, VIAL MATE ADAPTER 1 EACH in D5W 250 ML IV SCH (12:41)
[2019-10-04] MEDS: VANICREAM MOISTURIZING SKIN CREAM 113GM TUBE TOP SCH ×2 (12:41→20:38)
[2019-10-04] MEDS: VANCOMYCIN HCL 500 MG in D5W MINI-BAG PLUS 100 ML IV SCH (13:53)
[2019-10-04 14:00] VITALS: BP 135/81
--- NOTE | 2019-10-04 14:14 | ECHO ---
DATE OF PROCEDURE: 10/03/2019 HEIGHT: 66 inches. WEIGHT: 222 pounds. BODY SURFACE AREA: 2.1 meters squared. REFERRING PHYSICIAN: Dr. Rae Nunez. INDICATIONS: Sepsis. MEASUREMENTS: 2D Measurements: RV - 5.2 cm LV - 5.3 cm Septum - 1.3 cm Posterior wall - 1.3 cm Aortic root - 3.5 cm LA - 4.2 cm LVEF - 70% Doppler Measurements: AV - 1.91 meters per second LVOT - 1.12 - meters per second LVOT diameter 2.1 cm MV - E, 85, A - 93, E/A ratio 0.9 Early mitral deceleration time -180 milliseconds E prime medial - 5 A prime medial - 7.8 E prime lateral -15 Average E/E prime ratio - 8.5/PCWP - 12.4 mmHg PV - 1.0 meters per second Pulmonary artery acceleration time - 124 milliseconds PASP 26 mmHg IVC - 2.0 cm COMMENTS: Normal sinus rhythm with occasional frequent PACs. Right bundle branch block. Slightly challenging study in light of the patient's body habitus but diagnostically useful information was still obtained. M-mode and two-dimensional echocardiography was performed with pulsed, continuous wave, color flow and tissue Doppler studies. Normal left ventricular size with mild symmetrical hypertrophy. Somewhat hypokinetic to akinetic septal motion yet preserved global resting systolic function. Mildly dilated left atrium with grade 1 LV diastolic dysfunction but current estimated mean left atrial pressure within normal limits. At least mild to moderately dilated right heart chambers with normal wall motion and current estimated pulmonary arterial pressure upper limits of normal. Normal IVC size and collapse against an elevated central venous pressure. Normal aortic diameters. Mild aortic valvular sclerosis without apparent functional abnormality. Mild degenerative changes of the mitral valvular apparatus with no more than trace insufficiency. Normal appearing tricuspid valve with trace insufficiency. No separate intracardiac mass or pedunculated vegetation could be visualized. Could not rule out a small sessile vegetation on her mitral or aortic valves. No pericardial effusion. If cardiac source of her infection is seriously suspect, a transesophageal echocardiogram would be advised to further define mitral aortic valvular appearance.
--- NOTE | 2019-10-04 16:48 | IPNPDOC ---
Date Seen The patient was seen on 10/04/19. Progress Note SUBJECTIVE: No acute complaints overnight. Staph hominis sensitive to Vancomycin growing from 1 set blood cultures, second set pending. Afebrile, WBC wnl. Denies chest pain, fevers, chills, n/v/d, shortness of breath. OBJECTIVE: VITAL SIGNS: Please see below PHYSICAL EXAMINATION: VITAL SIGNS: Please see below CONSTITUTIONAL: No acute distress, resting comfortably, AAO x 3 EYES: PERRLA, EOM intact HENT, MOUTH: Normocephalic, atraumatic, moist mucous membranes NECK: SUPPLE, no JVD, no lymphadenopathy, no carotid bruit CV: tachycardic, irregularly irregular rhythm, S1S2 normal, no mu rmurs/rubs/gallops RESPIRATORY: Clear to auscultation bilaterally, no rales/rhonchi/wheezes GI: obese abdomen, BS positive in 4 quadrants, soft, nontender, nondistended, no rebound or guarding, no organomegaly : Deferred MUSCULOSKELETAL:Decreased ROM of right shoulder, painful to touch, multiple bruised areas with well healed incision sites- almost unnoticeable. No cyanosis, clubbing, joint deformity, extremity edema INTEGUMENTARY: Discoloration of bilateral lower ext, chronic. Intact, no rashes, no lesions, no erythema NEUROLOGIC: Cranial Nerves II-XII are intact, no focal deficits PSYCHIATRIC: Mood and affect are normal LABORATORY DATA: Please see below MICROBIOLOGY: Right shoulder intraarticular fluid aerobic GS: No organisms seen Right shoulder intraarticular fluid aerobic Cx: No growth Right shoulder intraarticular fluid anaerobic GS and Cx: pending BCx- Gram pos cocci in clusters BCx- Staph hominis sensitive to Vancomycin IMAGING: Echo: EF 70% Normal sinus rhythm with occasional frequent PACs. Right bundle branch block. Slightly challenging study in light of the patient's body habitus but diagnostically useful information was still obtained. M-mode and two-dimensional echocardiography was performed with pulsed, continuous wave, color flow and tissue Doppler studies. Normal left ventricular size with mild symmetrical hypertrophy. Somewhat hypokinetic to akinetic septal motion yet preserved global resting systolic function. Mildly dilated left atrium with grade 1 LV diastolic dysfunction but current estimated mean left atrial pressure within normal limits. At least mild to moderately dilated right heart chambers with normal wall motion and current estimated pulmonary arterial pressure upper limits of normal. Normal IVC size and collapse against an elevated central venous pressure. Normal aortic diameters. Mild aortic valvular sclerosis without apparent functional abnormality. Mild degenerative changes of the mitral valvular apparatus with no more than trace insufficiency. Normal appearing tricuspid valve with trace insufficiency. No separate intracardiac mass or pedunculated vegetation could be visualized. Could not rule out a small sessile vegetation on her mitral or aortic valves. No pericardial effusion. If cardiac source of her infection is seriously suspect, a transesophageal echocardiogram would be advised to further define mitral aortic valvular appearance. ASSESSMENT: 64 y/o F admitted for right shoulder pain ruling out septic joint, sepsis, gram positive cocci bacteremia. PLAN: 1. Right shoulder pain r/o septic joint, post-op day 3 arthroscopic irrigation, debridement -Pain mod-severe with movement of shoulder -ESR, CRP further improved -Blood culture x1 : Staph hominis sensitive to Vancomycin. Other micro above PENDING -C/w Vancomycin IV (Day 2) -Pain regimen PRN, PT/OT -Ortho primary 2. Gram positive cocci bacteremia. Cannot r/o right shoulder as primary source of infection and cannot r/o endocarditis with abnormal echo above. -One culture Staph Hominis sensitive to Vancomycin (Day 2) -HR wnl, WBC wnl -At this time, UA neg, no open skin ulcers/wounds and no respiratory concerns. -Echo above. -Discussed echo with Dr. Graham who suggests discussing MOISES with Dr. Ramírez after weekend when he returns. At that time infectious disease will hopefully be back and we can touch base with them as well to discuss case (already consulted by primary ortho team) -F/u results on cultures and sensitivities, repeating blood cultures 10/05/19 (48 hrs after initiation of Vancomycin) -C/w vancomycin for now. 3. Atrial fibrillation, controlled. -INR 1.9, goal 2-3 -Bridge with lovenox 1 mg/kg Q12 hrs until INR therapeutic, C/w coumadin, BB 4. HTN. -C/w home medications. 5. Hx of DVT, PE -INR subtherapeutic today -C/w coumadin, bridging with lovenox Q12H -Daily INR 6. GERD. -C/w home med 7. DVT px. -Lovenox, coumadin. VS, I&O, 24H, Fishbone Vital Signs/I&O Vital Signs Date Time Temp Pulse Resp B/P (MAP) Pulse Ox O2 Delivery O2 Flow Rate FiO2 10/04/19 14:00 98.0 73 18 135/81 (99) 100 Room Air 10/02/19 07:44 1.0 I&O- Last 24 Hours up to 6 AM 10/04/19 06:00 Intake Total 1740 ml Output Total 300 ml Balance 1440 ml Laboratory Data 24H LABS Laboratory Tests 2 10/04/19 06:02: Nucleated Red Blood Cells % (auto) 0.0, Erythrocyte Sedimentation Rate 126H, Anion Gap 5L, Glomerular Filtration Rate > 60.0, Calcium Level 9.7, Total Bilirubin 0.9#, Aspartate Amino Transf (AST/SGOT) 28, Alanine Aminotransferase (ALT/SGPT) 18, Alkaline Phosphatase 97, C-Reactive Protein, Quantitative 7.65H, Total Protein 6.7, Albumin 2.2L, Albumin/Globulin Ratio 0.5L 10/04/19 09:52: Vancomycin Level Trough 20.7H 10/04/19 11:51: Prothrombin Time 21.7H, Prothromb Time International Ratio 1.92 CBC/BMP Laboratory Tests 10/04/19 06:02 Microbiology Microbiology 10/01/19 Anaerobic Culture, Received Pending 10/01/19 Gram Stain - Final, Complete 10/01/19 Body Fluid Culture - Final, Complete 10/01/19 Respiratory Virus Panel (PCR) (KYRIE) - Final, Complete 10/01/19 Blood Culture - Final, Complete Staphylococcus Hominis Ssp Khadar 10/01/19 Blood Culture - Preliminary, Resulted Current Medications Current Medications Medications (Trade) Dose Ordered Sig/Soto Route PRN Reason Start Time Stop Time Status Last Admin Dose Admin Acetaminophen (Tylenol Tab) 650 mg Q4HP PRN PO MILD PAIN (PS 1-4) 10/02/19 00:30 10/04/19 08:15 Aspirin (Ecotrin) 81 mg DAILY PO 10/03/19 09:00 10/04/19 08:15 Atorvastatin Calcium (Lipitor) 20 mg DAILY@1800 PO 10/01/19 18:00 10/03/19 17:41 Cefazolin Sodium/ Dextrose 2 gm/IV Miscellaneous Supplies 50 ml @ 75 mls/hr Q8H IV 10/02/19 06:00 10/03/19 09:32 DC 10/03/19 05:29 Docusate Sodium (Colace) 100 mg BID PO 10/04/19 09:00 Emollient Cream (Vanicream) to legs and feet BID TOP 10/04/19 09:00 10/04/19 12:41 Enoxaparin Sodium (Lovenox) 100 mg Q12H SC 10/04/19 08:00 10/04/19 08:15 Fentanyl Citrate (Sublimaze) 25 mcg Q5MP PRN IV PAIN LEVEL 5-10 10/02/19 00:30 10/02/19 01:29 DC Furosemide (Lasix) 20 mg DAILY PO 10/02/19 09:00 10/04/19 08:16 Home Med (Med Rec Complete!) ASDIRECTED XX 10/01/19 21:00 10/01/19 21:01 DC Hydrochlorothiazide (Hydrodiuril) 12.5 mg DAILY PO 10/02/19 09:00 10/04/19 08:16 Lactated Ringer's 1,000 ml @ 100 mls/hr Q10H IV 10/02/19 00:30 10/02/19 01:29 DC Lactated Ringer's 1,000 ml @ 125 mls/hr Q8H IV 10/02/19 00:30 10/02/19 06:08 DC 10/02/19 05:51 Methimazole (Tapazole) 10 mg DAILY PO 10/02/19 09:00 10/04/19 08:16 Metoprolol Tartrate (Lopressor) 25 mg BID PO 10/01/19 21:00 10/02/19 02:31 DC Metoprolol Tartrate (Lopressor) 25 mg BID PO 10/02/19 09:00 10/04/19 08:16 Morphine Sulfate (Morphine Sulfate Inj) 2 mg Q4HP PRN IV MODERATE PAIN (PS 5-7) 10/02/19 00:30 10/03/19 23:57 Multivitamins (Theragram-M) 1 tab DAILY PO 10/02/19 09:00 10/04/19 08:16 Nystatin (Mycostatin Powder, Nystop) to groin and under breasts BID TOP 10/04/19 09:00 10/04/19 12:41 Ondansetron HCl (ZOFRAN INJection) 4 mg Q4HP PRN IV NAUSEA OR VOMITING 10/02/19 00:30 10/02/19 01:29 DC Ondansetron HCl (ZOFRAN INJection) 4 mg Q4HP PRN IV NAUSEA 10/02/19 00:30 Oxycodone HCl (Roxicodone, Oxyir) 5 mg ASDIRECTED PRN PO PAIN LEVEL 1-4 10/02/19 00:30 10/02/19 01:29 DC Oxycodone/ Acetaminophen (Percocet 5mg/ 325mg Tablet) 1 tab Q4HP PRN PO SEVERE PAIN (PS 8-10) 10/02/19 00:30 10/03/19 21:19 Phytonadione 5 mg/ Sodium Chloride 50.5 ml @ 101 mls/hr STAT STAT IV 10/01/19 20:40 10/01/19 21:09 DC 10/01/19 21:16 Senna (Senokot) 2 tab QHS PO 10/04/19 21:00 Vancomycin HCl 500 mg/Dextrose 110 ml @ 110 mls/hr Q12H IV 10/04/19 14:00 10/04/19 13:53 Vancomycin HCl 750 mg/IV Miscellaneous Supplies 1 each/ Dextrose 275 ml @ 275 mls/hr Q12H IV 10/04/19 13:00 10/04/19 12:41 Vancomycin HCl 1000 mg/IV Miscellaneous Supplies 1 each/ Dextrose 270 ml @ 270 mls/hr Q8H IV 10/03/19 11:00 10/04/19 10:38 DC 10/04/19 03:18 Warfarin Sodium (Coumadin) 2.5 mg SuTuThSa@1700 PO 10/04/19 17:00 Warfarin Sodium (Coumadin) 5 mg MoWeFr@1700 PO 10/03/19 17:00 10/03/19 17:40 Allergies Coded Allergies: ibuprofen (Verified Adverse Reaction, Mild, GI, 10/01/19) Rae Nunez MD Oct 04, 2019 16:48
[2019-10-04] MEDS: ATORVASTATIN 20 MG TAB PO SCH (17:19)
[2019-10-04] MEDS: WARFARIN SOD 2.5MG TAB PO SCH (17:19)
[2019-10-04] MEDS: SENNA 8.6 MG TAB (SENOKOT) PO SCH (20:36)
[2019-10-04] MEDS: PERCOCET 5MG/325MG TAB PO PRN (20:39)
[2019-10-04] MEDS: MORPHINE 2 MG/ML 1ML VIAL (J2270) IV PRN (21:45)
[2019-10-04 22:00] VITALS: BP 138/70
[2019-10-04 23:53] VITALS: BP 130/61
[2019-10-05] MEDS: VANCOMYCIN HCL 750 MG, VIAL MATE ADAPTER 1 EACH in D5W 250 ML IV SCH ×2 (01:16→14:09)
[2019-10-05] MEDS: VANCOMYCIN HCL 500 MG in D5W MINI-BAG PLUS 100 ML IV SCH ×2 (02:33→15:10)
[2019-10-05 06:00] VITALS: BP 129/76
[2019-10-05 06:50] LABS: HEMATOCRIT 29.8 % (36.0-47.0); HEMOGLOBIN 9.6 g/dl (12.0-15.5); MEAN CORPUSCULAR HEMOGLOBIN 32.8 pg (27.0-33.0); MEAN CORPUSCULAR HGB CONC 32.2 g/dl (32.0-36.5); MEAN CORPUSCULAR VOLUME 101.7 fl (80.0-96.0); PLATELET COUNT, AUTOMATED 188 10^3/uL (150-450); RED BLOOD COUNT 2.93 10^6/uL (4.00-5.40)
[2019-10-05 07:19] LABS: ERYTHROCYTE SEDIMENTATION RATE 126 mm/hr (0-30)
[2019-10-05 07:35] LABS: ALBUMIN 2.2 GM/DL (3.2-5.2); ALT/SGPT 17 U/L (12-78); BILIRUBIN,TOTAL 0.4 MG/DL (0.2-1.0); BLOOD UREA NITROGEN 15 MG/DL (7-18); C REACTIVE PROTEIN QUANTITATIV 4.92 MG/DL (0.00-0.30); CALCIUM LEVEL 9.5 MG/DL (8.8-10.2); CARBON DIOXIDE LEVEL 27 MEQ/L (21-32); CHLORIDE LEVEL 110 MEQ/L (98-107); CREATININE FOR GFR 0.67 MG/DL (0.55-1.30); GLOMERULAR FILTRATION RATE > 60.0 (>45); GLUCOSE, FASTING 105 MG/DL (70-100); POTASSIUM SERUM 3.7 MEQ/L (3.5-5.1); SODIUM LEVEL 144 MEQ/L (136-145); TOTAL PROTEIN 6.6 GM/DL (6.4-8.2)
[2019-10-05 09:17] LABS: INR 2.04; PROTHROMBIN TIME 22.8 SECONDS (11.8-14.0)
[2019-10-05] MEDS: ASPIRIN 81 MG ENTERIC TAB PO SCH (10:04)
[2019-10-05] MEDS: MULTIVITAMINS/MINERALS THERAP 1 TAB PO SCH (10:04)
[2019-10-05] MEDS: DOCUSATE SODIUM 100 MG CAP PO SCH ×2 (10:04→20:07)
[2019-10-05] MEDS: hydroCHLOROthiazide 25 MG TAB PO SCH (10:05)
[2019-10-05] MEDS: METOPROLOL TART 25 MG TABLET PO SCH ×2 (10:05→20:13)
--- NOTE | 2019-10-05 10:05 | IPN ---
DATE: 10/05/2019 CHIEF COMPLAINT: Postoperative day four right shoulder irrigation and debridement. HISTORY OF PRESENT ILLNESS: 64-year-old female who had spontaneous onset of right shoulder pain. I performed irrigation and debridement and sent fluid and tissue cultures. Those have been negative so far. The plan is for possible transesophageal echocardiogram (MOISES) as transthoracic echocardiogram was unable to rule out infective endocarditis. She feels well today. Pain is settling down. PHYSICAL EXAMINATION: Vital signs stable. Temperature 98.1. She is awake and alert. She looks well. Dressings is on her right shoulder. No strike through. Normal sensation and strong radial pulse. There is still some pain with motion of the shoulder. LABORATORY DATA: White blood cell count yesterday 6.0. ESR 126. Anaerobic culture of the shoulder pending. Blood culture growing Staphylococcus hominis. Gram stain of the shoulder fluid is negative. ASSESSMENT/PLAN: This 64-year-old female seems to be having a good response to vancomycin. Per the hospitalist managing this patient, they recommend staying on the vancomycin as her blood cultures have been positive and the TTE was unable to rule out infected carditis. The patient will remain in the hospital on IV antibiotics until at least Tuesday of next week, likely requiring a MOISES as well as consultation from Dr. Barber, the infectious disease specialist. I will follow her along intermittently. I also recommend physical therapy for active-assisted and passive range of motion of her right shoulder. I instructed the patient on different exercises that she can do as well.
[2019-10-05] MEDS: FUROSEMIDE 20 MG TAB PO SCH (10:06)
[2019-10-05] MEDS: NYSTATIN 100,000 UNITS/GM TOPICAL PWD 15 GM TOP SCH ×2 (10:07→20:11)
[2019-10-05] MEDS: VANICREAM MOISTURIZING SKIN CREAM 113GM TUBE TOP SCH ×2 (10:07→20:10)
[2019-10-05] MEDS: ENOXAPARIN 100MG/1ML SYRINGE (J1650 PER 10MG) SC SCH (10:22)
--- NOTE | 2019-10-05 13:00 | PHACANCOPD ---
PHARMACY VANCOMYCIN DOSING Pt Demographics Demographics Patient Age:64 , Weight:104.200 , Gender: female Adjusted Body Weight Date: 10/05/19, Adjusted Body Weight: Kg Vancomycin Vancomycin indication: GRAM + BACTEREMIA Vancomycin Target Ranges: 15-20 mcg/ml Vancomycin Load Y/N: Yes Load Dose Date Time Vancomycin Load Dose: Date: Time: Vancomycin Dose Date: 10/05/19. Current Vancomycin Dose: Intermittent Dosing?: No Labs Labs Item Value Date Time White Blood Count 6.9 10^3/uL 10/04/19 0602 White Blood Count 9.4 10^3/uL 10/03/19 0934 White Blood Count 6.0 10^3/uL 10/05/19 0631 Creatinine 0.80 MG/DL 10/03/19 0934 Creatinine 0.65 MG/DL 10/04/19 0602 Creatinine 0.67 MG/DL 10/05/19 0631 Vancomycin Level Trough 20.7 UG/ML H 10/04/19 0952 Vancomycin Level Trough 15.9 UG/ML 10/05/19 1205 Micro Microbiology 10/05/19 Blood Culture, Received Pending 10/05/19 Blood Culture, Received Pending 10/01/19 Anaerobic Culture, Received Pending 10/01/19 Gram Stain - Final, Complete 10/01/19 Body Fluid Culture - Final, Complete 10/01/19 Respiratory Virus Panel (PCR) (KYRIE) - Final, Complete 10/01/19 Blood Culture - Final, Complete Staphylococcus Hominis Ssp Khadar 10/01/19 Blood Culture - Final, Complete Micrococcus Luteus Creatinine Clearance Date:10/05/19. Creatinine Clearance: [83.6ML/MIN]. Assessment and Plan Maintaining Current Dose?: Yes Reason for dose change: No Dose Change Pharmacist Note Pharmacist Note Date: 10/05/19. Pharmacist note: Pt trough came back @ 15.9mcg/ml. We will continue 1.25g vancomycin IV every 12 hours. We will continue to monitor and adjust the dose as needed. KARIN COHEN PHARMACY Oct 05, 2019 13:00
[2019-10-05 14:00] VITALS: BP 106/64
[2019-10-05] MEDS: WARFARIN SOD 5MG TAB PO SCH (16:59)
[2019-10-05] MEDS: ATORVASTATIN 20 MG TAB PO SCH (17:00)
--- NOTE | 2019-10-05 17:33 | IPNPDOC ---
Date Seen The patient was seen on 10/05/19. Progress Note SUBJECTIVE: No acute complaints overnight. Staph hominis, micrococcus now growing in second set. Repeat BCx drawn this AM after 48 hrs on Vancomycin. Afebrile, WBC wnl. Denies chest pain, fevers, chills, n/v/d, shortness of breath. OBJECTIVE: VITAL SIGNS: Please see below PHYSICAL EXAMINATION: VITAL SIGNS: Please see below CONSTITUTIONAL: No acute distress, resting comfortably, AAO x 3 EYES: PERRLA, EOM intact HENT, MOUTH: Normocephalic, atraumatic, moist mucous membranes NECK: SUPPLE, no JVD, no lymphadenopathy, no carotid bruit CV: tachycardic, irregularly irregular rhythm, S1S2 normal, no murmurs/rubs/gallops RESPIRATORY: Clear to auscultation bilaterally, no rales/rhonchi/wheezes GI: obese abdomen, BS positive in 4 quadrants, soft, nontender, nondistended, no rebound or guarding, no organomegaly : Deferred MUSCULOSKELETAL:Decreased ROM of right shoulder, painful to touch, multiple bruised areas with well healed incision sites- almost unnoticeable. No cyanosis, clubbing, joint deformity, extremity edema INTEGUMENTARY: Discoloration of bilateral lower ext, chronic. Intact, no rashes, no lesions, no erythema NEUROLOGIC: Cranial Nerves II-XII are intact, no focal deficits PSYCHIATRIC: Mood and affect are normal LABORATORY DATA: Please see below MICROBIOLOGY: Right shoulder intraarticular fluid aerobic GS: No organisms seen Right shoulder intraarticular fluid aerobic Cx: NG Right shoulder intraarticular fluid anaerobic GS and Cx: pending BCx- Micrococcus sp BCx- Staph hominis sensitive to Vancomycin IMAGING: Echo: EF 70% Normal sinus rhythm with occasional frequent PACs. Right bundle branch block. Slightly challenging study in light of the patient's body habitus but diagnostically useful information was still obtained. M-mode and two-dimensional echocardiography was performed with pulsed, continuous wave, color flow and tissue Doppler studies. Normal left ventricular size with mild symmetrical hypertrophy. Somewhat hypokinetic to akinetic septal motion yet preserved global resting systolic function. Mildly dilated left atrium with grade 1 LV diastolic dysfunction but current estimated mean left atrial pressure within normal limits. At least mild to moderately dilated right heart chambers with normal wall motion and current estimated pulmonary arterial pressure upper limits of normal. Normal IVC size and collapse against an elevated central venous pressure. Normal aortic diameters. Mild aortic valvular sclerosis without apparent functional abnormality. Mild degenerative changes of the mitral valvular apparatus with no more than trace insufficiency. Normal appearing tricuspid valve with trace insufficiency. No separate intracardiac mass or pedunculated vegetation could be visualized. Could not rule out a small sessile vegetation on her mitral or aortic valves. No pericardial effusion. If cardiac source of her infection is seriously suspect, a transesophageal echocardiogram would be advised to further define mitral aortic valvular appearance. ASSESSMENT: 64 y/o F admitted for right shoulder pain ruling out septic joint, sepsis, gram positive cocci bacteremia. PLAN: 1. Right shoulder pain r/o septic joint, post-op day 3 arthroscopic irrigation, debridement -Pain mod-severe with movement of shoulder -ESR, CRP further improved -Blood culture x1 : Staph hominis, micrococcus sensitive to Vancomycin. -C/w Vancomycin IV (Day 2) -Pain regimen PRN, PT/OT -Ortho primary 2. Micrococcus, Staph hominis bacteremia. Cannot r/o right shoulder as primary source of infection and cannot r/o endocarditis with abnormal echo above. -One culture Staph Hominis sensitive to Vancomycin (Day 2) -HR wnl, WBC wnl -At this time, UA neg, no open skin ulcers/wounds and no respiratory concerns. -Echo above. -Discussed echo with Dr. Graham who suggests discussing MOISES with Dr. Ramírez after weekend when he returns. At that time infectious disease will hopefully be back and we can touch base with them as well to discuss case (already consulted by primary ortho team) -F/u results on cultures and sensitivities, repeating blood cultures 10/05/19 (48 hrs after initiation of Vancomycin) -C/w vancomycin for now. -ID consulted to see next week 3. Atrial fibrillation, controlled. -INR 2.04 today, goal 2-3 -D/c lovenox 1 mg/kg Q12 hrs -C/w coumadin, BB 4. HTN. -C/w home medications. 5. Hx of DVT, PE -INR therapeutic today -C/w coumadin -Daily INR 6. GERD. -C/w home med 7. DVT px. -Lovenox, coumadin. VS, I&O, 24H, Fishbone Vital Signs/I&O Vital Signs Date Time Temp Pulse Resp B/P (MAP) Pulse Ox O2 Delivery O2 Flow Rate FiO2 10/05/19 14:00 98.0 76 17 106/64 (78) 99 Room Air 10/02/19 07:44 1.0 I&O- Last 24 Hours up to 6 AM 10/05/19 06:00 Intake Total 2360 ml Output Total 1550 ml Balance 810 ml Laboratory Data 24H LABS Laboratory Tests 2 10/05/19 06:31: Nucleated Red Blood Cells % (auto) 0.0, Erythrocyte Sedimentation Rate 126H, Anion Gap 7L, Glomerular Filtration Rate > 60.0, Calcium Level 9.5, Total Biliru bin 0.4#, Aspartate Amino Transf (AST/SGOT) 22, Alanine Aminotransferase (ALT/SGPT) 17, Alkaline Phosphatase 97, C-Reactive Protein, Quantitative 4.92H, Total Protein 6.6, Albumin 2.2L, Albumin/Globulin Ratio 0.5L 10/05/19 08:46: Prothrombin Time 22.8H, Prothromb Time International Ratio 2.04 10/05/19 12:05: Vancomycin Level Trough 15.9 CBC/BMP Laboratory Tests 10/05/19 06:31 Microbiology Microbiology 10/05/19 Blood Culture, Received Pending 10/05/19 Blood Culture, Received Pending 10/01/19 Anaerobic Culture, Received Pending 10/01/19 Gram Stain - Final, Complete 10/01/19 Body Fluid Culture - Final, Complete 10/01/19 Respiratory Virus Panel (PCR) (KYRIE) - Final, Complete 10/01/19 Blood Culture - Final, Complete Staphylococcus Hominis Ssp Khadar 10/01/19 Blood Culture - Final, Complete Micrococcus Luteus Current Medications Current Medications Medications (Trade) Dose Ordered Sig/Soto Route PRN Reason Start Time Stop Time Status Last Admin Dose Admin Acetaminophen (Tylenol Tab) 650 mg Q4HP PRN PO MILD PAIN (PS 1-4) 10/02/19 00:30 10/04/19 08:15 Aspirin (Ecotrin) 81 mg DAILY PO 10/03/19 09:00 10/05/19 10:04 Atorvastatin Calcium (Lipitor) 20 mg DAILY@1800 PO 10/01/19 18:00 10/05/19 17:00 Cefazolin Sodium/ Dextrose 2 gm/IV Miscellaneous Supplies 50 ml @ 75 mls/hr Q8H IV 10/02/19 06:00 10/03/19 09:32 DC 10/03/19 05:29 Docusate Sodium (Colace) 100 mg BID PO 10/04/19 09:00 10/05/19 10:04 Emollient Cream (Vanicream) to legs and feet BID TOP 10/04/19 09:00 10/05/19 10:07 Enoxaparin Sodium (Lovenox) 100 mg Q12H SC 10/04/19 08:00 10/05/19 10:22 Fentanyl Citrate (Sublimaze) 25 mcg Q5MP PRN IV PAIN LEVEL 5-10 10/02/19 00:30 10/02/19 01:29 DC Furosemide (Lasix) 20 mg DAILY PO 10/02/19 09:00 10/05/19 10:06 Home Med (Med Rec Complete!) ASDIRECTED XX 10/01/19 21:00 10/01/19 21:01 DC Hydrochlorothiazide (Hydrodiuril) 12.5 mg DAILY PO 10/02/19 09:00 10/05/19 10:05 Lactated Ringer's 1,000 ml @ 100 mls/hr Q10H IV 10/02/19 00:30 10/02/19 01:29 DC Lactated Ringer's 1,000 ml @ 125 mls/hr Q8H IV 10/02/19 00:30 10/02/19 06:08 DC 10/02/19 05:51 Methimazole (Tapazole) 10 mg DAILY PO 10/02/19 09:00 10/05/19 10:06 Metoprolol Tartrate (Lopressor) 25 mg BID PO 10/01/19 21:00 10/02/19 02:31 DC Metoprolol Tartrate (Lopressor) 25 mg BID PO 10/02/19 09:00 10/05/19 10:05 Morphine Sulfate (Morphine Sulfate Inj) 2 mg Q4HP PRN IV MODERATE PAIN (PS 5-7) 10/02/19 00:30 10/04/19 21:45 Multivitamins (Theragram-M) 1 tab DAILY PO 10/02/19 09:00 10/05/19 10:04 Nystatin (Mycostatin Powder, Nystop) to groin and under breasts BID TOP 10/04/19 09:00 10/05/19 10:07 Ondansetron HCl (ZOFRAN INJection) 4 mg Q4HP PRN IV NAUSEA OR VOMITING 10/02/19 00:30 10/02/19 01:29 DC Ondansetron HCl (ZOFRAN INJection) 4 mg Q4HP PRN IV NAUSEA 10/02/19 00:30 Oxycodone HCl (Roxicodone, Oxyir) 5 mg ASDIRECTED PRN PO PAIN LEVEL 1-4 10/02/19 00:30 10/02/19 01:29 DC Oxycodone/ Acetaminophen (Percocet 5mg/ 325mg Tablet) 1 tab Q4HP PRN PO SEVERE PAIN (PS 8-10) 10/02/19 00:30 10/04/19 20:39 Phytonadione 5 mg/ Sodium Chloride 50.5 ml @ 101 mls/hr STAT STAT IV 10/01/19 20:40 10/01/19 21:09 DC 10/01/19 21:16 Senna (Senokot) 2 tab QHS PO 10/04/19 21:00 10/04/19 20:36 Vancomycin HCl 500 mg/Dextrose 110 ml @ 110 mls/hr Q12H IV 10/04/19 14:00 10/05/19 15:10 Vancomycin HCl 750 mg/IV Miscellaneous Supplies 1 each/ Dextrose 275 ml @ 275 mls/hr Q12H IV 10/04/19 13:00 10/05/19 14:09 Vancomycin HCl 1000 mg/IV Miscellaneous Supplies 1 each/ Dextrose 270 ml @ 270 mls/hr Q8H IV 10/03/19 11:00 10/04/19 10:38 DC 10/04/19 03:18 Warfarin Sodium (Coumadin) 2.5 mg SuTuThSa@1700 PO 10/04/19 17:00 10/04/19 17:19 Warfarin Sodium (Coumadin) 5 mg MoWeFr@1700 PO 10/03/19 17:00 10/05/19 16:59 Allergies Coded Allergies: ibuprofen (Verified Adverse Reaction, Mild, GI, 10/01/19) Rae Nunez MD Oct 05, 2019 17:33
[2019-10-05] MEDS: ACETAMINOPHEN TAB 650MG DOSE (2X325MG) PO PRN (19:21)
[2019-10-05] MEDS: SENNA 8.6 MG TAB (SENOKOT) PO SCH (20:07)
[2019-10-05 22:00] VITALS: BP 136/77
[2019-10-06] MEDS: VANCOMYCIN HCL 750 MG, VIAL MATE ADAPTER 1 EACH in D5W 250 ML IV SCH ×2 (00:37→13:13)
[2019-10-06] MEDS: VANCOMYCIN HCL 500 MG in D5W MINI-BAG PLUS 100 ML IV SCH ×2 (02:07→14:41)
[2019-10-06 06:00] VITALS: BP 114/65
[2019-10-06 06:28] LABS: HEMATOCRIT 31.3 % (36.0-47.0); HEMOGLOBIN 10.1 g/dl (12.0-15.5); MEAN CORPUSCULAR HEMOGLOBIN 32.5 pg (27.0-33.0); MEAN CORPUSCULAR HGB CONC 32.3 g/dl (32.0-36.5); MEAN CORPUSCULAR VOLUME 100.6 fl (80.0-96.0); PLATELET COUNT, AUTOMATED 207 10^3/uL (150-450); RED BLOOD COUNT 3.11 10^6/uL (4.00-5.40); WHITE BLOOD COUNT 6.6 10^3/uL (4.0-10.0)
[2019-10-06 06:43] LABS: INR 2.34; PROTHROMBIN TIME 25.5 SECONDS (11.8-14.0)
[2019-10-06 06:54] LABS: ALBUMIN 2.3 GM/DL (3.2-5.2); ALT/SGPT 19 U/L (12-78); BILIRUBIN,TOTAL 0.5 MG/DL (0.2-1.0); BLOOD UREA NITROGEN 12 MG/DL (7-18); C REACTIVE PROTEIN QUANTITATIV 3.72 MG/DL (0.00-0.30); CARBON DIOXIDE LEVEL 29 MEQ/L (21-32); CHLORIDE LEVEL 107 MEQ/L (98-107); GLOMERULAR FILTRATION RATE > 60.0 (>45); GLUCOSE, FASTING 102 MG/DL (70-100); POTASSIUM SERUM 3.7 MEQ/L (3.5-5.1); SODIUM LEVEL 142 MEQ/L (136-145); TOTAL PROTEIN 6.9 GM/DL (6.4-8.2)
[2019-10-06 07:41] LABS: ERYTHROCYTE SEDIMENTATION RATE 126 mm/hr (0-30)
[2019-10-06] MEDS: VANICREAM MOISTURIZING SKIN CREAM 113GM TUBE TOP SCH ×2 (09:05→21:00)
[2019-10-06] MEDS: MULTIVITAMINS/MINERALS THERAP 1 TAB PO SCH (09:06)
[2019-10-06] MEDS: DOCUSATE SODIUM 100 MG CAP PO SCH ×2 (09:06→20:54)
[2019-10-06] MEDS: hydroCHLOROthiazide 25 MG TAB PO SCH (09:06)
[2019-10-06] MEDS: NYSTATIN 100,000 UNITS/GM TOPICAL PWD 15 GM TOP SCH ×2 (09:06→20:59)
[2019-10-06] MEDS: ASPIRIN 81 MG ENTERIC TAB PO SCH (09:07)
[2019-10-06] MEDS: METOPROLOL TART 25 MG TABLET PO SCH ×2 (09:07→20:55)
[2019-10-06] MEDS: FUROSEMIDE 20 MG TAB PO SCH (09:07)
[2019-10-06 14:00] VITALS: BP 196/112
[2019-10-06 15:15] VITALS: BP 182/90
[2019-10-06] MEDS: ACETAMINOPHEN TAB 650MG DOSE (2X325MG) PO PRN (15:20)
[2019-10-06] MEDS ORDERED: **hydrALAZINE** 10 MG TAB PO ONE (16:00)
[2019-10-06 16:05] VITALS: BP 130/78
--- NOTE | 2019-10-06 16:05 | IPNPDOC ---
Date Seen The patient was seen on 10/06/19. Progress Note SUBJECTIVE: No acute complaints overnight. BP elevated at 190-180 on multiple readings this afternoon, given tylenol and hydralazine 20 mg. PT states to have a lot of stress at home. Afebrile, WBC wnl. Denies chest pain, fevers, chills, n/v/d, shortness of breath. OBJECTIVE: VITAL SIGNS: Please see below PHYSICAL EXAMINATION: VITAL SIGNS: Please see below CONSTITUTIONAL: No acute distress, resting comfortably, AAO x 3 EYES: PERRLA, EOM intact HENT, MOUTH: Normocephalic, atraumatic, moist mucous membranes NECK: SUPPLE, no JVD, no lymphadenopathy, no carotid bruit CV: tachycardic, irregularly irregular rhythm, S1S2 normal, no murmurs/rubs/gallops RESPIRATORY: Clear to auscultation bilaterally, no rales/rhonchi/wheezes GI: obese abdomen, BS positive in 4 quadrants, soft, nontender, nondistended, no rebound or guarding, no organomegaly : Deferred MUSCULOSKELETAL:Decreased ROM of right shoulder, painful to touch still but decreased compared to 10/05/19, multiple bruised areas with well healed incision sites- almost unnoticeable. No cyanosis, clubbing, joint deformity, extremity edema INTEGUMENTARY: Discoloration of bilateral lower ext, chronic. Intact, no rashes, no lesions, no erythema NEUROLOGIC: Cranial Nerves II-XII are intact, no focal deficits PSYCHIATRIC: Mood and affect are normal LABORATORY DATA: Please see below MICROBIOLOGY: Right shoulder intraarticular fluid aerobic GS: No organisms seen Right shoulder intraarticular fluid aerobic Cx: NG Right shoulder intraarticular fluid anaerobic GS and Cx: pending BCx #1- Micrococcus sp BCx #2- Staph hominis sensitive to Vancomycin Repeat BCx x 2 sets 10/05/19: NG at 24 hrs IMAGING: Echo: EF 70% Normal sinus rhythm with occasional frequent PACs. Right bundle branch block. Slightly challenging study in light of the patient's body habitus but diagnostically useful information was still obtained. M-mode and two-dimensional echocardiography was performed with pulsed, continuous wave, color flow and tissue Doppler studies. Normal left ventricular size with mild symmetrical hypertrophy. Somewhat hypokinetic to akinetic septal motion yet preserved global resting systolic function. Mildly dilated left atrium with grade 1 LV diastolic dysfunction but current estimated mean left atrial pressure within normal limits. At least mild to moderately dilated right heart chambers with normal wall motion and current estimated pulmonary arterial pressure upper limits of normal. Normal IVC size and collapse against an elevated central venous pressure. Normal aortic diameters. Mild aortic valvular sclerosis without apparent functional abnormality. Mild degenerative changes of the mitral valvular apparatus with no more than trace insufficiency. Normal appearing tricuspid valve with trace insufficiency. No separate intracardiac mass or pedunculated vegetation could be visualized. Could not rule out a small sessile vegetation on her mitral or aortic valves. No pericardial effusion. If cardiac source of her infection is seriously suspect, a transesophageal echocardiogram would be advised to further define mitral aortic valvular appearance. ASSESSMENT: 64 y/o F admitted for right shoulder pain ruling out septic joint, sepsis, gram positive cocci bacteremia. PLAN: 1. Right shoulder pain r/o septic joint, post-op day 6 arthroscopic irrigation, debridement -Pain mod-severe with movement of shoulder -ESR, CRP further improved -Blood culture x1 : Staph hominis, micrococcus sensitive to Vancomycin. -C/w Vancomycin IV (Day 3) -Pain regimen PRN, PT/OT -Ortho primary 2. Micrococcus, Staph hominis bacteremia. Cannot r/o right shoulder as primary source of infection and cannot r/o endocarditis with abnormal echo above. -Repeat BCx from 10/04/20 NG at 24 hrs -See "Micro" above -Echo above and abnormal -Discussed echo with Dr. Graham who suggests discussing MOISES with Dr. Ramírez after October 05 holiday weekend when he returns. At that time infectious disease will hopefully be back and we can touch base with Dr. Barber as well to discuss case (already consulted by primary ortho team) -F/u results on cultures and sensitivities -C/w vancomycin (Day 3) for now. -ID consulted 3. Atrial fibrillation, controlled. -INR 2.34 today, goal 2-3 -C/w coumadin, BB 4. HTN. -C/w home medications. 5. Hx of DVT, PE -INR therapeutic today -C/w coumadin -Daily INR 6. GERD. -C/w home med 7. DVT px. -Lovenox, coumadin. VS, I&O, 24H, Fishbone Vital Signs/I&O Vital Signs Date Time Temp Pulse Resp B/P (MAP) Pulse Ox O2 Delivery O2 Flow Rate FiO2 10/06/19 15:39 182/90 10/06/19 14:00 97.8 77 18 99 Room Air 10/02/19 07:44 1.0 I&O- Last 24 Hours up to 6 AM 10/06/19 06:00 Intake Total 2230 ml Output Total 3420 ml Balance -1190 ml Laboratory Data 24H LABS Laboratory Tests 2 10/06/19 06:05: Nucleated Red Blood Cells % (auto) 0.0, Erythrocyte Sedimentation Rate 126H, Prothrombin Time 25.5H, Prothromb Time International Ratio 2.34, Anion Gap 6L, Glomerular Filtration Rate > 60.0, Calcium Level 10.0, Total Bilirubin 0.5, Aspartate Amino Transf (AST/SGOT) 24, Alanine Aminotransferase (ALT/SGPT) 19, Alkaline Phosphatase 97, C-Reactive Protein, Quantitative 3.72H, Total Protein 6.9, Albumin 2.3L, Albumin/Globulin Ratio 0.5L CBC/BMP Laboratory Tests 10/06/19 06:05 Microbiology Microbiology 10/05/19 Blood Culture - Preliminary, Resulted No growth after 24 hours . All specim... 10/05/19 Blood Culture - Preliminary, Resulted No growth after 24 hours . All specim... 10/01/19 Anaerobic Culture - Final, Complete 10/01/19 Gram Stain - Final, Complete 10/01/19 Body Fluid Culture - Final, Complete 10/01/19 Respiratory Virus Panel (PCR) (KYRIE) - Final, Complete 10/01/19 Blood Culture - Final, Complete Staphylococcus Hominis Ssp Khadar 10/01/19 Blood Culture - Final, Complete Micrococcus Luteus Current Medications Current Medications Medications (Trade) Dose Ordered Sig/Soto Route PRN Reason Start Time Stop Time Status Last Admin Dose Admin Acetaminophen (Tylenol Tab) 650 mg Q4HP PRN PO MILD PAIN (PS 1-4) 10/02/19 00:30 10/06/19 15:20 Aspirin (Ecotrin) 81 mg DAILY PO 10/03/19 09:00 10/06/19 09:07 Atorvastatin Calcium (Lipitor) 20 mg DAILY@1800 PO 10/01/19 18:00 10/05/19 17:00 Cefazolin Sodium/ Dextrose 2 gm/IV Miscellaneous Supplies 50 ml @ 75 mls/hr Q8H IV 10/02/19 06:00 10/03/19 09:32 DC 10/03/19 05:29 Docusate Sodium (Colace) 100 mg BID PO 10/04/19 09:00 10/06/19 09:06 Emollient Cream (Vanicream) to legs and feet BID TOP 10/04/19 09:00 10/06/19 09:05 Enoxaparin Sodium (Lovenox) 100 mg Q12H SC 10/04/19 08:00 10/05/19 17:34 DC 10/05/19 10:22 Fentanyl Citrate (Sublimaze) 25 mcg Q5MP PRN IV PAIN LEVEL 5-10 10/02/19 00:30 10/02/19 01:29 DC Furosemide (Lasix) 20 mg DAILY PO 10/02/19 09:00 10/06/19 09:07 Home Med (Med Rec Complete!) ASDIRECTED XX 10/01/19 21:00 10/01/19 21:01 DC Hydrochlorothiazide (Hydrodiuril) 12.5 mg DAILY PO 10/02/19 09:00 10/06/19 09:06 Lactated Ringer's 1,000 ml @ 100 mls/hr Q10H IV 10/02/19 00:30 10/02/19 01:29 DC Lactated Ringer's 1,000 ml @ 125 mls/hr Q8H IV 10/02/19 00:30 10/02/19 06:08 DC 10/02/19 05:51 Methimazole (Tapazole) 10 mg DAILY PO 10/02/19 09:00 10/06/19 09:06 Metoprolol Tartrate (Lopressor) 25 mg BID PO 10/01/19 21:00 10/02/19 02:31 DC Metoprolol Tartrate (Lopressor) 25 mg BID PO 10/02/19 09:00 10/06/19 09:07 Morphine Sulfate (Morphine Sulfate Inj) 2 mg Q4HP PRN IV MODERATE PAIN (PS 5-7) 10/02/19 00:30 10/04/19 21:45 Multivitamins (Theragram-M) 1 tab DAILY PO 10/02/19 09:00 10/06/19 09:06 Nystatin (Mycostatin Powder, Nystop) to groin and under breasts BID TOP 10/04/19 09:00 10/06/19 09:06 Ondansetron HCl (ZOFRAN INJection) 4 mg Q4HP PRN IV NAUSEA OR VOMITING 10/02/19 00:30 10/02/19 01:29 DC Ondansetron HCl (ZOFRAN INJection) 4 mg Q4HP PRN IV NAUSEA 10/02/19 00:30 Oxycodone HCl (Roxicodone, Oxyir) 5 mg ASDIRECTED PRN PO PAIN LEVEL 1-4 10/02/19 00:30 10/02/19 01:29 DC Oxycodone/ Acetaminophen (Percocet 5mg/ 325mg Tablet) 1 tab Q4HP PRN PO SEVERE PAIN (PS 8-10) 10/02/19 00:30 10/04/19 20:39 Phytonadione 5 mg/ Sodium Chloride 50.5 ml @ 101 mls/hr STAT STAT IV 10/01/19 20:40 10/01/19 21:09 DC 10/01/19 21:16 Senna (Senokot) 2 tab QHS PO 10/04/19 21:00 10/04/19 20:36 Vancomycin HCl 500 mg/Dextrose 110 ml @ 110 mls/hr Q12H IV 10/04/19 14:00 10/06/19 14:41 Vancomycin HCl 750 mg/IV Miscellaneous Supplies 1 each/ Dextrose 275 ml @ 275 mls/hr Q12H IV 10/04/19 13:00 10/06/19 13:13 Vancomycin HCl 1000 mg/IV Miscellaneous Supplies 1 each/ Dextrose 270 ml @ 270 mls/hr Q8H IV 10/03/19 11:00 10/04/19 10:38 DC 10/04/19 03:18 Warfarin Sodium (Coumadin) 2.5 mg SuTuThSa@1700 PO 10/04/19 17:00 10/04/19 17:19 Warfarin Sodium (Coumadin) 5 mg MoWeFr@1700 PO 10/03/19 17:00 10/05/19 16:59 Allergies Coded Allergies: ibuprofen (Verified Adverse Reaction, Mild, GI, 10/01/19) Rae Nunez MD Oct 06, 2019 16:05
[2019-10-06] MEDS: ATORVASTATIN 20 MG TAB PO SCH (17:20)
[2019-10-06] MEDS: WARFARIN SOD 2.5MG TAB PO SCH (17:22)
[2019-10-06] MEDS: SENNA 8.6 MG TAB (SENOKOT) PO SCH (20:54)
[2019-10-06 22:00] VITALS: BP 176/100
[2019-10-06 23:00] VITALS: BP 168/88
[2019-10-07] MEDS: VANCOMYCIN HCL 750 MG, VIAL MATE ADAPTER 1 EACH in D5W 250 ML IV SCH ×2 (00:46→13:00)
[2019-10-07] MEDS: VANCOMYCIN HCL 500 MG in D5W MINI-BAG PLUS 100 ML IV SCH ×2 (02:18→14:16)
[2019-10-07 06:00] VITALS: BP 163/82
[2019-10-07] MEDS: ACETAMINOPHEN TAB 650MG DOSE (2X325MG) PO PRN (06:31)
[2019-10-07 07:03] LABS: HEMATOCRIT 32.2 % (36.0-47.0); HEMOGLOBIN 10.5 g/dl (12.0-15.5); MEAN CORPUSCULAR HEMOGLOBIN 32.7 pg (27.0-33.0); MEAN CORPUSCULAR HGB CONC 32.6 g/dl (32.0-36.5); MEAN CORPUSCULAR VOLUME 100.3 fl (80.0-96.0); PLATELET COUNT, AUTOMATED 221 10^3/uL (150-450); RED BLOOD COUNT 3.21 10^6/uL (4.00-5.40); WHITE BLOOD COUNT 7.7 10^3/uL (4.0-10.0)
[2019-10-07 07:30] LABS: INR 2.62; PROTHROMBIN TIME 27.9 SECONDS (11.8-14.0)
[2019-10-07 07:59] LABS: ERYTHROCYTE SEDIMENTATION RATE 126 mm/hr (0-30)
[2019-10-07] MEDS ORDERED: IBUPROFEN 600MG TAB PO PRN (08:15)
[2019-10-07] MEDS ORDERED: IBUPROFEN 800 MG TAB PO ONE (09:00)
[2019-10-07] MEDS ORDERED: METOPROLOL TART 25 MG TABLET PO SCH (09:00)
[2019-10-07] MEDS: DOCUSATE SODIUM 100 MG CAP PO SCH ×2 (09:58→20:20)
[2019-10-07] MEDS: MULTIVITAMINS/MINERALS THERAP 1 TAB PO SCH (09:59)
[2019-10-07] MEDS: ASPIRIN 81 MG ENTERIC TAB PO SCH (09:59)
[2019-10-07] MEDS: FLECAINIDE 50MG TABLET PO SCH ×2 (09:59→20:19)
[2019-10-07] MEDS: METOPROLOL TART 25 MG TABLET PO SCH ×2 (09:59→20:25)
[2019-10-07] MEDS: FUROSEMIDE 20 MG TAB PO SCH (09:59)
[2019-10-07] MEDS: VANICREAM MOISTURIZING SKIN CREAM 113GM TUBE TOP SCH ×2 (10:00→20:27)
[2019-10-07] MEDS: NYSTATIN 100,000 UNITS/GM TOPICAL PWD 15 GM TOP SCH ×2 (10:00→20:27)
[2019-10-07] MEDS: hydroCHLOROthiazide 25 MG TAB PO SCH (10:01)
--- NOTE | 2019-10-07 12:33 | IPNPDOC ---
Text Note Date of Service The patient was seen on 10/07/19. NOTE SUBJECTIVE: Complained of headache this am after waking up which had resolved by late morning with tylenol and ibuprofen. BP better controlled today Afebrile, WBC wnl. Denies chest pain, fevers, chills, n/v/d, shortness of breath. PHYSICAL EXAMINATION: VITAL SIGNS: Please see below CONSTITUTIONAL: No acute distress, resting comfortably, AAO x 3 EYES: PERRLA, EOM intact HENT, MOUTH: Normocephalic, atraumatic, moist mucous membranes NECK: SUPPLE, no JVD, no lymphadenopathy, no carotid bruit CV: tachycardic, irregularly irregular rhythm, S1S2 normal, no murmurs/rubs/gal lops RESPIRATORY: Clear to auscultation bilaterally, no rales/rhonchi/wheezes GI: obese abdomen, BS positive in 4 quadrants, soft, nontender, nondistended, no rebound or guarding, no organomegaly MUSCULOSKELETAL:Decreased ROM of right shoulder, painful to touch still but better, multiple bruised areas with well healed incision sites- almost unnoticeable. No cyanosis, clubbing, joint deformity, extremity edema INTEGUMENTARY: Discoloration of bilateral lower ext, chronic statsis changes. Intact, no rashes, no lesions, no erythema NEUROLOGIC: Cranial Nerves II-XII are intact, no focal deficits PSYCHIATRIC: Mood and affect are normal LABORATORY DATA: Please see below MICROBIOLOGY: Right shoulder intraarticular fluid aerobic GS: No organisms seen Right shoulder intraarticular fluid aerobic Cx: NG Right shoulder intraarticular fluid anaerobic GS and Cx: pending BCx #1- Micrococcus sp BCx #2- Staph hominis sensitive to Vancomycin Repeat BCx x 2 sets 10/05/19: NG at 24 hrs IMAGING: Echo: EF 70% Normal sinus rhythm with occasional frequent PACs. Right bundle branch block. Slightly challenging study in light of the patient's body habitus but diagnostically useful information was still obtained. M-mode and two-dimensional echocardiography was performed with pulsed, c ontinuous wave, color flow and tissue Doppler studies. Normal left ventricular size with mild symmetrical hypertrophy. Somewhat hypokinetic to akinetic septal motion yet preserved global resting systolic function. Mildly dilated left atrium with grade 1 LV diastolic dysfunction but current estimated mean left atrial pressure within normal limits. At least mild to moderately dilated right heart chambers with normal wall motion and current estimated pulmonary arterial pressure upper limits of normal. Normal IVC size and collapse against an elevated central venous pressure. Normal aortic diameters. Mild aortic valvular sclerosis without apparent functional abnormality. Mild degenerative changes of the mitral valvular apparatus with no more than trace insufficiency. Normal appearing tricuspid valve with trace insufficiency. No separate intracardiac mass or pedunculated vegetation could be visualized. Could not rule out a small sessile vegetation on her mitral or aortic valves. No pericardial effusion. If cardiac source of her infection is seriously suspect, a transesophageal echocardiogram would be advised to further define mitral aortic valvular appearance. ASSESSMENT: [id number] female with past medical history of hypertension, atrial fibrillation, GERD, history of pulmonary emboli, history of deep vein thrombosis who presented to [facility] emergency room on 10/02/2019 after having worsening right shoulder pain for 5 days. Admitted for right shoulder pain ruling out septic joint, sepsis, gram positive cocci bacteremia. Right shoulder pain r/o septic joint, post-op day 7 arthroscopic irrigation, debridement -Pain mod-with movement of shoulder able to move more doing shoulder exercises. -ESR, CRP further improved -Blood culture x1 : Staph hominis, micrococcus sensitive to Vancomycin. -C/w Vancomycin IV (Day 4) -Pain regimen PRN, PT/OT -Ortho Micrococcus, Staph hominis bacteremia. Cannot r/o right shoulder as primary source of infection and cannot r/o endocarditis with abnormal echo above. -Repeat BCx from 10/04/20 NG at 24 hrs -See "Micro" above -Echo above and abnormal -Discussed echo with Dr. Graham who suggests discussing MOISES with Dr. Ramírez after October 05 holiday weekend when he returns. At that time infectious disease will hopefully be back and we can touch base with Dr. Barber as well to discuss case (already consulted by primary ortho team) -F/u results on cultures and sensitivities -C/w vancomycin (Day 3) for now. -ID consulted Atrial fibrillation, controlled. -INR 2.34 today, goal 2-3 -C/w coumadin, flecainide and digoxin, BB HTN. -C/w metoprolol. Hx of DVT, PE -INR therapeutic today -C/w coumadin -Daily INR GERD. -C/w home med DVT px. -Lovenox, coumadin. VS,Fishbone, I+O VS, Fishbone, I+O Laboratory Tests 10/07/19 06:26 Vital Signs Date Time Temp Pulse Resp B/P (MAP) Pulse Ox O2 Delivery O2 Flow Rate FiO2 10/07/19 09:59 83 163/82 10/07/19 06:00 98.7 17 96 Room Air 10/02/19 07:44 1.0 I&O- Last 24 Hours up to 6 AM 10/07/19 06:00 Intake Total 900 ml Output Total 3000 ml Balance -2100 ml DEREK MERRITT MD Oct 07, 2019 12:33
[2019-10-07 14:00] VITALS: BP 152/74
[2019-10-07] MEDS: FAMOTIDINE 20 MG TAB PO SCH (18:14)
[2019-10-07] MEDS: ATORVASTATIN 20 MG TAB PO SCH (18:14)
[2019-10-07] MEDS: DIGOXIN 0.25 MG TAB PO SCH (18:15)
[2019-10-07] MEDS: WARFARIN SOD 2.5MG TAB PO SCH (18:15)
[2019-10-07] MEDS: ACETAMINOPHEN 500 MG TAB PO SCH (20:20)
[2019-10-07] MEDS: SENNA 8.6 MG TAB (SENOKOT) PO SCH (20:20)
[2019-10-07 22:00] VITALS: BP 132/74
[2019-10-08] MEDS: VANCOMYCIN HCL 750 MG, VIAL MATE ADAPTER 1 EACH in D5W 250 ML IV SCH (01:15)
[2019-10-08] MEDS: VANCOMYCIN HCL 500 MG in D5W MINI-BAG PLUS 100 ML IV SCH (02:21)
[2019-10-08 06:00] VITALS: BP 142/73
[2019-10-08 06:42] LABS: HEMATOCRIT 33.1 % (36.0-47.0); HEMOGLOBIN 10.6 g/dl (12.0-15.5); MEAN CORPUSCULAR HEMOGLOBIN 32.6 pg (27.0-33.0); MEAN CORPUSCULAR VOLUME 101.8 fl (80.0-96.0); PLATELET COUNT, AUTOMATED 238 10^3/uL (150-450); RED BLOOD COUNT 3.25 10^6/uL (4.00-5.40); WHITE BLOOD COUNT 8.3 10^3/uL (4.0-10.0)
[2019-10-08 06:43] LABS: INR 2.49; PROTHROMBIN TIME 26.8 SECONDS (11.8-14.0)
[2019-10-08 07:02] LABS: ERYTHROCYTE SEDIMENTATION RATE 108 mm/hr (0-30)
[2019-10-08 07:12] LABS: C REACTIVE PROTEIN QUANTITATIV 2.84 MG/DL (0.00-0.30); DIGOXIN LEVEL 0.5 NG/ML (0.5-2.0)
[2019-10-08 08:40] LABS: BLOOD UREA NITROGEN 16 MG/DL (7-18); CALCIUM LEVEL 10.6 MG/DL (8.8-10.2); CARBON DIOXIDE LEVEL 28 MEQ/L (21-32); CHLORIDE LEVEL 105 MEQ/L (98-107); CREATININE FOR GFR 0.81 MG/DL (0.55-1.30); GLOMERULAR FILTRATION RATE > 60.0 (>45); GLUCOSE, FASTING 99 MG/DL (70-100); POTASSIUM SERUM 4.1 MEQ/L (3.5-5.1); SODIUM LEVEL 140 MEQ/L (136-145); URIC ACID 4.9 MG/DL (2.6-6.0)
[2019-10-08 09:06] LABS: BASO % 0.4 % (0.0-1.0); EOS # 0.2 10^3/uL (0.0-0.5); EOS % 2.5 % (0.0-3.0); LYMPH # 0.9 10^3/uL (1.5-5.0); LYMPH % 10.2 % (24.0-44.0); MONO # 0.6 10^3/uL (0.0-0.8); MONO % 7.2 % (0.0-5.0); NEUTROPHILS # 6.6 10^3/uL (1.5-8.5); NEUTROPHILS % 79.3 % (36.0-66.0)
[2019-10-08] MEDS: ACETAMINOPHEN 500 MG TAB PO SCH (09:06)
[2019-10-08] MEDS: FLECAINIDE 50MG TABLET PO SCH (09:07)
[2019-10-08] MEDS: DOCUSATE SODIUM 100 MG CAP PO SCH (09:07)
[2019-10-08] MEDS: MULTIVITAMINS/MINERALS THERAP 1 TAB PO SCH (09:07)
[2019-10-08] MEDS: hydroCHLOROthiazide 25 MG TAB PO SCH (09:07)
[2019-10-08] MEDS: ASPIRIN 81 MG ENTERIC TAB PO SCH (09:07)
[2019-10-08] MEDS: FUROSEMIDE 20 MG TAB PO SCH (09:07)
[2019-10-08 09:08] VITALS: BP 142/87
[2019-10-08] MEDS: NYSTATIN 100,000 UNITS/GM TOPICAL PWD 15 GM TOP SCH (09:08)
[2019-10-08] MEDS: METOPROLOL TART 25 MG TABLET PO SCH (09:08)
[2019-10-08] MEDS: VANICREAM MOISTURIZING SKIN CREAM 113GM TUBE TOP SCH (09:08)
[2019-10-08 14:00] VITALS: BP 113/65
[2019-10-08] MEDS ORDERED: DOXY-350 PO (16:41)
[2019-10-08] MEDS: FAMOTIDINE 20 MG TAB PO SCH (16:56)
[2019-10-08] MEDS: ATORVASTATIN 20 MG TAB PO SCH (16:57)
[2019-10-08] MEDS: WARFARIN SOD 5MG TAB PO SCH (16:57)
[2019-10-08] MEDS: DIGOXIN 0.25 MG TAB PO SCH (16:57)
[2019-10-08] MEDS ORDERED: VANCOMYCIN HCL 1,000 MG, VIAL MATE ADAPTER 1 EACH in D5W 250 ML IV SCH (17:00)
--- NOTE | 2019-10-09 10:43 | CR ---
DATE OF CONSULTATION: 10/08/2019 Asked to consult by hospitalist for management of antibiotic in a patient with right shoulder pain and bursitis. HISTORY OF PRESENT ILLNESS: Mrs. Hood is a 64-year-old, morbidly obese female who presented to [facility] Emergency Room on 09/25/2019 with worsening right shoulder pain for 5 days duration. The patient denied any trauma to the right shoulder. She has never had surgery to the right shoulder and no foreign bodies. The patient attempted to place hot and cold compresses and took some pain medication without improvement. On arrival to the emergency room (ER), she was noted to have a fever of 100.5. Shoulder MRI showed a large complex joint effusion with debris and septation with similar fluid down into subacromial, subdeltoid, and subcoracoid bursa. There was also a full-thickness supraspinatus insertion tendon tear. The patient was taken to the operating room (OR) by Dr. Paz as there was some concern of septic arthritis, although clinically the shoulder did not look like it was a septic joint. Cultures were sent and were negative aerobically and anaerobically. She had two sets of blood cultures. One had Staphylococcus hominis and the second one had micrococcus which were both contaminants. The patient was treated with 24 hours of IV cefazolin perioperatively and then has been on vancomycin since then. Her C-reactive protein (CRP) has improved from 10 to 2.80. Erythrocyte sedimentation rate (ESR) was over 140. She had an echocardiogram, which showed no vegetation. Intraoperatively, the report was reviewed and there was description of straw-colored fluid that was drained from the joint and sent for culture. There was moderate osteoarthritis and bursitis and therefore, a bursectomy was done by Dr. Paz. The patient is anxious to go home to take care of her cat and dog. She feels much better. PAST MEDICAL HISTORY: Significant for hypertension, atrial fibrillation, gastroesophageal reflux disease, history of pulmonary embolism and deep venous thrombosis (DVT) on Coumadin, obesity, severe osteoarthritis of both knees, severe varicose veins of both knees. PAST SURGICAL HISTORY: Right shoulder surgery done by Dr. Paz, vein stripping in bilateral lower extremities, cholecystectomy, tonsillectomy. SOCIAL HISTORY: Smokes seven cigarettes per day for the past 40 years. Social alcohol use. Denies illicit drug use. 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 She is a , lost her about 3 years ago. She has a cat and a dog. Has never been able to have any children. FAMILY HISTORY: Father with lung disease, at 75. Mother with heart disease, at 75. ALLERGIES: IBUPROFEN. MEDICATIONS: - vancomycin 1 gram IV every 12 hours - Tylenol 1000 mg by mouth twice a day - aspirin 325 mg by mouth daily - Colace 100 mg by mouth twice a day - warfarin 2.5 alternating with 5 mg every other day - hydrochlorothiazide 12.5 mg by mouth daily - atorvastatin 20 mg by mouth daily - metoprolol 25 mg by mouth twice a day - nystatin to groin topical twice a day - famotidine 40 mg by mouth every evening - Percocet 2 tablets by mouth every 6 as needed - Pneumovax was given on 10/03/2019 - lisinopril 20 mg by mouth given once LABORATORY DATA: White count 8.3, hemoglobin 10.6, hematocrit 33.1, platelets 238. ESR 108, down from over 140. Sodium 140, potassium 4.1, chloride 105, bicarbonate 28, BUN 16, creatinine 0.81, glucose 99, uric acid 4.9, calcium 10.6. CRP 2.84, down from 10. Microbiology: Blood culture on 10/01/2019 at 14:13 was Micrococcus luteus, on 10/01/2019 at 14:40 it was Staphylococcus hominis. Two more sets done on 10/05/2019 were no growth after 72 hours. Aerobic and anaerobic cultures of the right shoulder were negative. Cell count was not done and crystals were not sent. PHYSICAL EXAMINATION: She is a pleasant, healthy-looking female, obese, in no acute distress, ambulating independently. Heart: Normal S1, S2. No murmurs, rubs or gallops. Lungs are clear. No wheezes, rales or rhonchi. Abdomen: Morbidly obese, soft, nontender. Back: No costovertebral angle (CVA) or lumbosacral tenderness. Extremities: Large varicose vein tortuous with bilateral venous stasis changes and no open ulcers. No clubbing, cyanosis, +1 ankle edema. Right shoulder has ecchymosis at the incision site, but she has at least 85 degrees range of motion on her own. There is bruising but no warmth or cellulitis. Laparoscopic surgical scars are noted. IMAGING: Shoulder MRI done on 10/01/2019 showed a tear of the posterior supraspinatus, large complex shoulder joint effusion with extensive debris and severe sinusitis, large amount of septation, complex labral tear, complex bursal fluid tracking to the acromioclavicular joint, at least partial tears of anterior and posterior bands of the inferior glenohumeral segment. Multifocal muscle edema about the shoulder joint. This is most consistent with myositis. Muscle strain could also be this appearance. IMPRESSION: 64-year-old female admitted with severe right shoulder pain and MRI finding consistent with a large effusion. Cultures were negative. The patient had slightly elevated inflammatory markers, including high ESR and CRP which have clinically improved. She had a low grade temperature of 100.5 for 1 day and white count of 13.21 on admission but these have resolved. The patient has been on IV vancomycin since 10/03/2019 for 6 days and 24 hours of IV cefazolin perioperatively. Clinically, this is not consistent with a septic joint. Blood cultures were not consistent with septic arthritis. These are two different pathogens that are skin contaminants. The fact that the joint fluid did not grow any bacteria makes it also unlikely that it was a septic joint. The patient does not have risk for Lyme disease. She has an indoor cat and a dog but she does not walk to the dog. So, Lyme disease would be unlikely. She could have a mechanical trauma with a large extremity joint effusion versus a crystal induced bursitis, arthritis. PLAN: Discontinue IV vancomycin. I would suggest switching her to doxycycline 100 mg by mouth twice a day for 2 weeks. If joint pain worsens, may consider a short course of prednisone for 5 days. The patient will followup in my office in 2 weeks. I have ordered for Lyme serology just for completeness, although my suspicion is very low. The case has been discussed with Dr. Chaney, who agrees on discharging the patient home today, to followup in clinic in 2 weeks.
[2019-10-10 17:07] LABS: Lyme Disease IgG/IgM Antibodie <0.91 ISR (0.00-0.90); Lyme Disease IgM Ab Quantitati <0.80 index (0.00-0.79)
--- NOTE | 2019-10-20 17:41 | DSES ---
DATE OF ADMISSION: 10/02/2019 DATE OF DISCHARGE: 10/08/2019 ADMITTING DIAGNOSIS: Possible right shoulder joint infection. OTHER DIAGNOSES: 1. Hypertension. 2. History of left leg deep vein thrombosis. 3. A number of surgeries to the venous system in the lower extremities. The patient taking Coumadin. DISCHARGE DIAGNOSIS: Severe right shoulder pain, status post irrigation and debridement with perioperative cultures that were negative. HISTORY: The patient is a 64-year-old female who complained of right shoulder pain for 5 days without an inciting injury. Pain was increasing with movement. She did present to the emergency room, where it was noted that she had a low-grade fever with elevated inflammatory markers. She consented for an elective irrigation and debridement of her right shoulder with perioperative labs. OPERATION PERFORMED: Right shoulder irrigation and debridement with perioperative labs. HOSPITAL COURSE: The patient underwent a right shoulder arthroscopic irrigation and debridement with perioperative cultures for suspected right shoulder infection. Surgery was done under general anesthesia and was uneventful. The patient was hospitalized for intravenous (IV) antibiotics and close followup. She was discharged on oral pain medications and will resume her preoperative medications and diet. She has been consulted by the infectious disease doctor and switched from intravenous (IV) antibiotics to oral antibiotics. Therapy was recommended for active assisted and passive range of motion of the right shoulder. She will followup in our office in approximately 7-10 days for re-evaluation, sooner if there is any increase in symptoms. In the meantime, she will be followed by infectious disease. Please see medical records for additional details. ERIC
== END 2019-10-08 18:08 | disposition home or self-care (01) | DRG 502 ==
LOC: M ED 12:20 → M MS5PR 10-02 → M MSPAV 10-03 11:14
PROVIDERS: ADMIT Orthopaedic Surgery Sports Medicine; ATTEND Orthopaedic Surgery Sports Medicine
PROC: 0XB Anatomical Regions, Upper Extremities, Excision (ICD-10-PCS; principal; 2019-10-01 22:00)
DX: M25.411 Effusion, right shoulder (principal); I48.91 Unspecified atrial fibrillation; I10 Essential (primary) hypertension; K21.9 Gastro-esophageal reflux disease without esophagitis; E66.9 Obesity, unspecified; M19.90 Unspecified osteoarthritis, unspecified site; Z86.711 Personal history of pulmonary embolism; Z86.718 Personal history of other venous thrombosis and embolism; F17.210 Nicotine dependence, cigarettes, uncomplicated; Z79.01 Long term (current) use of anticoagulants

== ENCOUNTER → 2019-10-24 | Outpatient (REF) | payer MEDICARE, OTHER ==
[~2019-10-24] MED LIST changes: +DIGO0.253; +DIGO0.253 PO; +DOXY-350 PO; +FAMO40TA3 PO; +FLUO20CA20 PO; +FURO20TA2; +FURO20TA2 PO; +RANI15TA PO; +VITA400C53 PO; +VITMTA PO
[2019-10-24 12:40] LABS: PROTHROMBIN TIME 59.3 SECONDS (11.8-14.0)
[2019-10-24 13:56] LABS: INR 6.73
== END ==
LOC: M LAB REF 11:13
PROVIDERS: ATTEND Registered Nurse
DX: Z79.01 Long term (current) use of anticoagulants (principal)

== ENCOUNTER → 2020-01-24 | Outpatient (REF) | payer MEDICARE, OTHER ==
[2020-01-24 13:46] LABS: PROTHROMBIN TIME 49.4 SECONDS (12.5-14.3)
[2020-01-24 13:49] LABS: INR 5.24
== END ==
LOC: M LAB REF 12:45
PROVIDERS: ATTEND Internal Medicine
DX: Z51.81 Encounter for therapeutic drug level monitoring (principal)

== ENCOUNTER → 2020-01-31 | Outpatient (REF) | payer MEDICARE, OTHER | LOC: M LAB REF 16:27 | PROVIDERS: ATTEND Internal Medicine | DX: I48.20 Chronic atrial fibrillation, unspecified (principal) ==

== ENCOUNTER → 2020-02-14 | Outpatient (REF) | payer MEDICARE, OTHER ==
[2020-02-14 13:19] LABS: PROTHROMBIN TIME 58.4 SECONDS (12.5-14.3)
[2020-02-14 13:20] LABS: INR 6.49
== END ==
LOC: M LAB REF 12:55
PROVIDERS: ATTEND Internal Medicine
DX: I48.20 Chronic atrial fibrillation, unspecified (principal)

== ENCOUNTER 2020-03-14 12:10 | Emergency (ER) | payer MEDICARE, OTHER ==
[~2020-03-14] VITALS: Ht 167.6 cm; Wt 100.1 kg
[2020-03-14] MEDS ORDERED: ELIQ5TAB PO (12:39)
--- NOTE | 2020-03-14 13:46 | REP ---
INDICATION: pain and swelling, history of dvt COMPARISON: Bilateral lower extremity deep vein ultrasound dated 06/27/2019. TECHNIQUE: Multiple real-time and Doppler ultrasonographic images. FINDINGS: The deep veins demonstrate normal compression, normal Doppler color flow and normal Doppler waveforms with respiration augmentation from the popliteal vein to the common femoral vein. Evaluation of the distal femoral vein is technically difficult because of patient pain. IMPRESSION: There is no deep vein thrombus in the left lower extremity <Electronically signed by Harish Bowles > 03/14/20 [id number]
[2020-03-14] MEDS ORDERED: KEFL500C17 PO (14:26)
[2020-03-14 14:50] VITALS: BP 128/71
== END 2020-03-14 14:52 | disposition home or self-care (01) ==
LOC: M ED 12:10
DX: I80.02 Phlebitis and thrombophlebitis of superficial vessels of left lower extremity (principal); F17.200 Nicotine dependence, unspecified, uncomplicated; Z79.01 Long term (current) use of anticoagulants; Z79.82 Long term (current) use of aspirin; Z79.899 Other long term (current) drug therapy; Z88.6 Allergy status to analgesic agent

== ENCOUNTER → 2020-05-05 | Outpatient (REF) | payer MEDICARE, OTHER ==
[~2020-05-05] MED LIST changes: +ELIQ5TAB PO; +HYDR-3490 PO; -HYDR25TAB PO; +KEFL500C17 PO
== END ==
LOC: M LAB REF 12:36
PROVIDERS: ATTEND Internal Medicine
DX: E83.52 Hypercalcemia (principal)

== ENCOUNTER 2020-05-26 11:08 | Emergency (ER) | payer MEDICARE, OTHER ==
[~2020-05-26] VITALS: Ht 167.6 cm; Wt 101.0 kg
[2020-05-26 11:09] VITALS: BP 173/97
--- OUTSIDE RECORDS SUMMARY | 2020-05-26 11:19 | CCD | Continuity of Care Document ---
Author Author Glenna Sprague M.D. Organization Unknown Address [address] [facility] [address] [place] [address] Phone [phone] Care Team Providers Care Undercoater Name Role Phone Darci Brush MD AUTM [phone] [facility] AUTM [phone] Douglas Ramírez MD AUTM Unavailable Problems Active Problems Provider Date Chronic atrial fibrillation Protime Onset: 02/09 Essential hypertension Glenna Guajardo FNP Onset: 02/09/2017 Deep venous thrombosis of lower extremity Glenna Guajardo FN P Onset: 02/09/2017 Pure hypercholesterolemia Glenna Guajardo FNP Onset: 017 Anxiety state Glenna Guajardo FNP Onset: 02/09/2017 Chronic pulmonary embolism Glenna Guajardo FNP Onset: 2016 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 Glenna Guajardo FNP Onset: 02/09/2017 Gastroesophageal reflux disease Glenna Guajardo FNP Onset: 1 04/11/2016 Scoliosis deformity of spine Glenna Guajardo FNP Onset: 11/2016 Chronic tension-type headache Glenna Guajardo FNP Onset: 11/2016 Varicose veins of lower extremity Glenna Guajardo FNP Onset: 02/09/2017 Tobacco user Glenna Guajardo FNP Onset: 02/09/2017 Hypercalcemia Glenna Guajardo FNP Onset: 02/09/2017 Social History Type Date Description Comments Sex Unknown ETOH Use Consumes 3 glasses of wine per w [place] Tobacco Use Start: Unknown Patient is a current smoker, smo kes every day STARTED AGE 29 1-3 CIGARETTES A DAY Allergies, Adverse Reactions, Alerts Active Allergies Reaction Severity Comments Date Ibuprofen STOMACH UPSET HEADACHE motrin 01/18 Latex rash, itches Mild 01/18/2018 Medications Active Medications SIG Qnty Indications Ordering Provide r Date Bupropion Hydrochloride ER (XL) 150mg Tablets ER 24HR take 1 tablet by mouth in the morning 30tabs Zehra Sprague M.D. 05/05/2020 Eliquis 5mg Tablets take one tablet by mouth twice a day 60tabs Zehra Sprague M.D. 2019 Furosemide 20mg Tablets 1 by mouth every am 90tabs Zehra Sprague M.D. 08/31/19 20 Methimazole 5mg Tablets 1 by mouth every day except m w f take 2 40tabs Zehra Sprague M.D. 07/02/2019 Shingrix 50mcg/0.5ML Suspension Re c administer at pharmacy 1units Glenna Guajardo FNP 05/23 Famotidine 40mg Tablets 1 by mouth every day 30tabs Glenna Guajardo FNP 03/14/2019 Voltaren 1% Gel apply up to 4 grams three times a day to affected knee as needed 100gm Yosef Guajardo FNP 03/17/2018 Flecainide Acetate 100mg Tablets Take One Tablet By Mouth Twice A Day 180tabs Glenna Guajardo FNP 01/18/2017 Atorvastatin Calcium 20mg Tablets take one tablet by mouth every day 90tabs Glenna Guajardo FNP Metoprolol Tartrate 25mg Tablets Take One Tablet By Mouth Twice A Day 180tabs Glenna Guajardo FNP 01/18/2017 Womens 50+ Multi Vitamin & Mineral Formu la Tablets 1 every day PO Vit [id number] TU=563 Glenna Guajardo FNP 01/18/2017 Calcium 600/Vitamin D3 [id number] Tablets 1 by mouth qd Glenna Guajardo FNP 017 Mucus Relief DM 20-400mg Tablets 1 Q 4HRS prn Glenna Guajardo FNP 01/18/2017 Acetaminophen Extra Strength 500mg Tablets take 2 tabs every 6 hours as needed Glenna Ruffin FNP 01/18/2017 Vitamin E 400Unit Capsules 1 by mouth every day Glenna Guajardo FNP 01/18/2017 Aspirin Adult Low Dose 81mg Tablet s 1 by mouth every day Glenna Guajardo FNP 7 Digoxin 250mcg Tablets 1 po q d Unknown Medications Administered in Office Medication SIG Qnty Indications Ordering Provider Date Administration Of Flu Vaccine Inj ection Zehra Sprague M.D. 01/17/20 20 Administration Of Flu Vaccine Inj ection Glenna Guajardo FNP 01/18/2019 Administration Of Flu Vaccine Inj ection Glenna Guajardo FNP 01/18/2018 Administration Of Flu Vaccine Inj ection Glenna Guajardo FNP 01/18/2017 Immunizations CPT Code Status Date Vaccine Lot # [id number] Given 01/17/2020 Influenza Vaccin e Quadrivalent Preser/Antibiotic Free Im Use [id number] 51794 Given 05/29/2019 Shingrix Zoster Vaccine (HZV), Recombinant, Subunit, Adjuvanted 76531 Given 01/18/2019 Influenza Vaccin e Quadrivalent Preser/Antibiotic Free Im Use [id number] 68538 Given 01/18/2018 Influenza Virus Vaccine, Quadrivalent ([id number]), Derived From 4 Given 04/22/2017 Pneumovax 23 [id number] 05557 Given 01/18/2017 Influenza Vaccin e Quadrivalent Preser/Antibiotic Free Im Use [id number] Vital Signs Date Vital Result Comment 05/05/2020 1:08pm BP Systolic 148 mmHg RT Arm BP Diastolic 70 mmHg RT Arm Heart Rate 60 /min Height 66 inches 5'6" Weight 221.00 lb BMI (Body Mass Index) 35.7 kg/m2 02/05/2020 11:19am Weight 226.00 lb Results Test Acquired Date Facility Test Result H/L Range Note Complete Blood Count 05/05/2020 [facility] County Nurse: Dr Terrance [place] [id number] [phone] WBC 5.8 x10*3/UL 4.1 - 10.9 RBC 4.01 x10*6/UL Low 4.20 - 6.30 Hemoglobin 13.1 g/dL 12.0 - 18.0 Hematocrit 37.5 % 37.0 - 51.0 MCV 93.4 fL 80.0 - 97.0 MCH 32.6 pg High 26.0 - 32.0 MCHC 34.9 g/dL 31.0 - 38.0 RDW 13.8 % High 11.6 - 13.7 PLT 191 x10*3/UL 140 - 440 MPV 8.6 FL 7.8 - 11.0 Lymph % 24.4 % 10.0 - 58.5 Mid % 6.7 % 1.7 - 9.3 Neut % 68.9 % 37.0 - 92.0 Lymph # 1.4 x10*3/UL 0.6 - 4.1 Mid # 0.4 x10*3/UL 0.1 - 0.6 Neut # 4.0 x10*3/UL 2.0 - 7.8 Basic Metabolic Panel 05/05/2020 [facility] County Nurse: [place] [address] [phone] Glucose 98 mg/dL 74 - 99 1 BUN 49 mg/dL High 7 - 18 2 Creatinine 1.2 mg/dL 0.6 - 1.3 Sodium 142 mEq/L 136 - 145 Potassium 4.5 mEq/L 3.5 - 5.1 Chloride 104 mEq/L 98 - 107 Carbon Dioxide 23 mEq/L 21 - 32 Calcium 10.6 mg/dL High 8.5 - 10.1 GFR 45 mL/min Low >60 GFR 55 mL/min Low >60 3 Laboratory test finding 05/05/2020 [id number], County Nurse: [place] [address] [phone] Thyroid Stimulating Hormone 0.54 uIU/mL 0.3 6 - 3.74 Laboratory test finding 05/05/2020 [facility], County Nurse: [place] [address] [phone] Vitamin D 25-Hydroxy 32.7 24.0 - 80.0 4 Laboratory test finding 05/05/2020 [facility] [address] [place] [address] [phone] PTH Intact 26.3 pg/mL Normal 18.5-88.0 Prothrombin Time/Inr 02/14/2020 [facility] enter [address] [place] [address] [phone] Prothrombin Time 58.4 seconds High 12.5-14.3 Inr 6.49 Critical high 5 Complete Blood Count 02/14/2020 [facility] County Nurse: [place] [address] [phone] WBC 6.0 x10*3/UL 4.1 - 10.9 RBC 4.11 x10*6/UL Low 4.20 - 6.30 Hemoglobin 13.0 g/dL 12.0 - 18.0 Hematocrit 37.5 % 37.0 - 51.0 MCV 91.1 fL 80.0 - 97.0 MCH 31.6 pg 26.0 - 32.0 MCHC 34.7 g/dL 31.0 - 38.0 RDW 14.2 % High 11.6 - 13.7 PLT 243 x10*3/UL 140 - 440 MPV 8.3 FL 7.8 - 11.0 Lymph % 21.2 % 10.0 - 58.5 Mid % 5.8 % 1.7 - 9.3 Neut % 73.0 % 37.0 - 92.0 Lymph # 1.2 x10*3/UL 0.6 - 4.1 Mid # 0.4 x10*3/UL 0.1 - 0.6 Neut # 4.4 x10*3/UL 2.0 - 7.8 Laboratory test finding 02/14/2020 [facility] Inr 7.9 Basic Metabolic Panel 02/14/2020 [facility] County Nurse: [place] [address] [phone] Glucose 100 mg/dL High 74 - 99 6 BUN 17 mg/dL 7 - 18 Creatinine 0.7 mg/dL 0.6 - 1.3 Sodium 141 mEq/L 136 - 145 Potassium 4.4 mEq/L 3.5 - 5.1 Chloride 103 mEq/L 98 - 107 Carbon Dioxide 24 mEq/L 21 - 32 Calcium 10.2 mg/dL High 8.5 - 10.1 7 GFR >= 60 mL/min >60 GFR >= 60 mL/min >60 8 Laboratory test finding 02/05/2020 [facility] 3.7 Laboratory test finding 01/31/2020 [facility], County Nurse: Dr Terrance Matson [place] [id number] [phone] T4 Free 1.33 ng/dL 0.76 - 1.46 Ua Dipstick Only 01/31/2020 [facility] , County Nurse: Dr Terrance [place] [id number] [phone] Urine Color YELLOW Yellow Urine Appearance CLEAR Clear Urine PH 6.5 units 5.0 - 9.0 Urine Specific Hurt 1.010 1.005 - 1.030 Urine Leukocytes NEGATIVE Negative Urine Blood NEGATIVE Negative Urine Protein TRACE Negative -Trace Urine Glucose NEGATIVE mg/dL Negative Urine Nitrite NEGATIVE Negative Urine Ketone NEGATIVE mg/dL Negative Urine Bilirubin NEGATIVE Negative Urine Urobilinogen 0.2 mg/dL 0.2 - 1.0 Laboratory test finding 01/31/2020 [facility] County Nurse: Dr Terrance [place] [id number] [phone] Thyroid Stimulating Hormone 0.16 uIU/mL Low 0.3 6 - 3.74 Basic Metabolic Panel 01/31/2020 [facility], County Nurse: Dr Terrance [place] [id number] [phone] Glucose 101 mg/dL High 74 - 99 9 BUN 17 mg/dL 7 - 18 Creatinine 0.7 mg/dL 0.6 - 1.3 Sodium 143 mEq/L 136 - 145 Potassium 4.0 mEq/L 3.5 - 5.1 Chloride 104 mEq/L 98 - 107 Carbon Dioxide 30 mEq/L 21 - 32 Calcium 10.7 mg/dL High 8.5 - 10.1 10 GFR >= 60 mL/min >60 GFR >= 60 mL/min >60 11 Laboratory test finding 01/31/2020 [facility] County Nurse: Dr Terrance Matson [place] [id number] [phone] Magnesium 2.1 mg/dL 1.8 - 2.4 Complete Blood Count 01/31/2020 [facility] County Nurse: [place] [address] [phone] WBC 6.2 x10*3/UL 4.1 - 10.9 RBC 4.36 x10*6/UL 4.20 - 6.30 Hemoglobin 13.8 g/dL 12.0 - 18.0 Hematocrit 40.7 % 37.0 - 51.0 MCV 93.2 fL 80.0 - 97.0 MCH 31.6 pg 26.0 - 32.0 MCHC 34.0 g/dL 31.0 - 38.0 RDW 14.5 % High 11.6 - 13.7 PLT 236 x10*3/UL 140 - 440 MPV 7.8 FL 7.8 - 11.0 Lymph % 19.8 % 10.0 - 58.5 Mid % 5.7 % 1.7 - 9.3 Neut % 74.5 % 37.0 - 92.0 Lymph # 1.2 x10*3/UL 0.6 - 4.1 Mid # 0.4 x10*3/UL 0.1 - 0.6 Neut # 4.6 x10*3/UL 2.0 - 7.8 Laboratory test finding 01/31/2020 [facility] [address] [place] [address] [phone] Digoxin Level 0.6 NG/ML Normal 0.5-2.0 Laboratory test finding 01/31/2020 [facility] 2.7 Laboratory test finding 01/28/2020 [facility] 1.2 Laboratory test finding 01/24/2020 [facility] 7.2 Complete Blood Count 01/24/2020 [facility] County Nurse: [place] [address] [phone] WBC 6.6 x10*3/UL 4.1 - 10.9 RBC 4.37 x10*6/UL 4.20 - 6.30 Hemoglobin 13.7 g/dL 12.0 - 18.0 Hematocrit 40.2 % 37.0 - 51.0 MCV 91.9 fL 80.0 - 97.0 MCH 31.4 pg 26.0 - 32.0 MCHC 34.2 g/dL 31.0 - 38.0 RDW 13.7 % 11.6 - 13.7 PLT 251 x10*3/UL 140 - 440 MPV 8.3 FL 7.8 - 11.0 Lymph % 16.8 % 10.0 - 58.5 Mid % 4.7 % 1.7 - 9.3 Neut % 78.5 % 37.0 - 92.0 Lymph # 1.1 x10*3/UL 0.6 - 4.1 Mid # 0.3 x10*3/UL 0.1 - 0.6 Neut # 5.2 x10*3/UL 2.0 - 7.8 Prothrombin Time/Inr 01/24/2020 [facility] enter [address] [place] [address] [phone] Prothrombin Time 49.4 seconds High 12.5-14.3 Inr 5.24 Critical high 12 Laboratory test finding 01/17/2020 [facility] 1.3 Laboratory test finding 12/14/2019 [facility] Inr 3.7 Laboratory test finding 12/05/2019 [facility] Inr 1.3 1 100-125 mg/dL PRE-DIABET ES/FASTING >126 mg/dL DIABETES/FASTING 2 NOTE: BUN,CALCIUM VERIFIED 3 CHRONIC KIDNEY DISEASE STAGI NG PER NKF STAGE I & II GFR >= 60 NORMAL TO MILDLY DECREASED STAGE III GFR 30-59 MODERATELY DECREASED STAGE IV GFR 15-29 SEVERELY DECREASED STAGE V GFR <15 VERY LITTLE GFR LEFT ESRD GFR <15 ON LEVEL VIAL SEALER 4 This test was performed [facility] Vitamin D immunoassay kit. Values obtained with different assay methods should not be used interchangeably. 5 THERAPUTIC HUMAN INR VALUES INDICATIONS NORMAL RANGES PROPHYLAXIS/TREATMENT OF: VENOUS THROMBOSIS 2.0-3.0 PULMONARY EMBOLISM 2.0-3.0 PREVENTION OF SYSTEMIC EMBOLISM FROM: TISSUE HEART VALVES 2.0-3.0 ACUTE MYOCARDIAL INFARCTION 2.0-3.0 VALVULAR HEART DISEASE 2.0-3.0 ATRIAL FIBRILLATION 2.0-3.0 MECHANICAL VALVES(HIGH RISK) 2.5-3.5 RECURRENT MYOCARDIAL INFARCTION 2.5-3.5 6 100-125 mg/dL PRE-DIABET ES/FASTING >126 mg/dL DIABETES/FASTING 7 NOTE: RESULT VERIFIED. 8 CHRONIC KIDNEY DISEASE STAGI NG PER NKF STAGE I & II GFR >= 60 NORMAL TO MILDLY DECREASED STAGE III GFR 30-59 MODERATELY DECREASED STAGE IV GFR 15-29 SEVERELY DECREASED STAGE V GFR <15 VERY LITTLE GFR LEFT ESRD GFR <15 ON LEVEL VIAL SEALER 9 100-125 mg/dL PRE-DIABET ES/FASTING >126 mg/dL DIABETES/FASTING 10 NOTE: RESULT VERIFIED. 11 CHRONIC KIDNEY DISEASE STAGI NG PER NKF STAGE I & II GFR >= 60 NORMAL TO MILDLY DECREASED STAGE III GFR 30-59 MODERATELY DECREASED STAGE IV GFR 15-29 SEVERELY DECREASED STAGE V GFR <15 VERY LITTLE GFR LEFT ESRD GFR <15 ON LEVEL VIAL SEALER 12 THERAPUTIC HUMAN INR VALUES INDICATIONS NORMAL RANGES PROPHYLAXIS/TREATMENT OF: VENOUS THROMBOSIS 2.0-3.0 PULMONARY EMBOLISM 2.0-3.0 PREVENTION OF SYSTEMIC EMBOLISM FROM: TISSUE HEART VALVES 2.0-3.0 ACUTE MYOCARDIAL INFARCTION 2.0-3.0 VALVULAR HEART DISEASE 2.0-3.0 ATRIAL FIBRILLATION 2.0-3.0 MECHANICAL VALVES(HIGH RISK) 2.5-3.5 RECURRENT MYOCARDIAL INFARCTION 2.5-3.5 Procedures Date Code Description Status 01/31/2020 28273 Brief Emotional/Beha v Assessment W/ Scoring Doc Per Standard Inst Completed Medical Devices Description No Information Available Encounters Type Date Location Provider Dx Diagnosis Office Visit 05/05/2020 1:00p [place] [facility] M[facility] I48.20 Chronic atrial fibrillation, unspecified Z79.01 meterman (current) use of a nticoagulants I10 Essential (primary) hyperten juanita E05.90 Thyrotoxicosis, unsp without thyrotoxic crisis or storm K21.9 Gastro-esophageal reflux dis ease without esophagitis I82.502 Chronic embolism and thombos unsp deep veins of l low extrem M15.9 Polyosteoarthritis, unspecif ied F17.210 Nicotine dependence, cigaret madhu, uncomplicated R32 Unspecified urinary incontin ence G31.84 Mild cognitive impairment, s o stated E78.00 Pure hypercholesterolemia, u nspecified E55.9 Vitamin D deficiency, unspec ified J44.9 Chronic obstructive pulmonar y disease, unspecified Office Visit 01/31/2020 10:30a [place] [facility] M.[facility] I48.20 Chronic atrial fibrillation, unspecified Z79.01 halfway (current) use of a nticoagulants F32.89 Other specified depressive e pisodes I10 Essential (primary) hyperten juanita E05.90 Thyrotoxicosis, unsp without thyrotoxic crisis or storm K21.9 Gastro-esophageal reflux dis ease without esophagitis I82.502 Chronic embolism and thombos unsp deep veins of l low extrem M19.90 Unspecified osteoarthritis, unspecified site F17.210 Nicotine dependence, cigaret madhu, uncomplicated J44.9 Chronic obstructive pulmonar y disease, unspecified R32 Unspecified urinary incontin ence G31.84 Mild cognitive impairment, s o stated Assessments Date Code Description Provider 05/05/2020 I48.20 Chronic atrial fibrillation, uns pecified Zehra Sprague M.D. 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.01 halfway (current) use of antic oagulants Zehra Sprague M.D. 05/05/2020 I10 Essential (primary) hypertension Zehra Sprague M.D. 05/05/2020 E05.90 Thyrotoxicosis, unspecified with out thyrotoxic crisis or sto Zehra Spargue M.D. 05/05/2020 K21.9 Gastro-esophageal reflux disease without esophagitis Zehra Sprague M.D. 05/05/2020 I82.502 Chronic embolism and thrombosis of unspecified deep veins of left lower extremity Zehra Sprague M.D. 05/05/2020 M15.9 Polyosteoarthritis, unspecified Zehra Sprague M.D. 05/05/2020 F17.210 Nicotine dependence, cigarettes, uncomplicated Zehra Sprague M.D. 05/05/2020 R32 Unspecified urinary incontinence Zehra Sprague M.D. 05/05/2020 G31.84 Mild cognitive impairment, so st ated Zehra Sprague M.D. 05/05/2020 E78.00 Pure hypercholesterolemia, unspe cified Zehra Sprague M.D. 05/05/2020 E55.9 Vitamin D deficiency, unspecifie d Zehra Sprague M.D. 05/05/2020 J44.9 Chronic obstructive pulmonary di sease, unspecified Zehra Sprague M.D. 03/25/2020 I10 Essential (primary) hypertension Zehra Sprague M.D. 03/25/2020 K21.9 Gastro-esophageal reflux disease without esophagitis Zehra Sprague M.D. 03/25/2020 F17.210 Nicotine dependence, cigarettes, uncomplicated Zehra Sprague M.D. 03/25/2020 J44.9 Chronic obstructive pulmonary di sease, unspecified Zehra Sprague M.D. 02/18/2020 Z51.81 Encounter for therapeutic drug l evel monitoring Lauryn Gabriel [facility] 02/18/2020 Z51.81 Encounter for therapeutic drug l evel monitoring Protime 02/18/2020 I48.20 Chronic atrial fibrillation, uns pecified Lauryn Gabriel, [facility] 02/18/2020 I48.20 Chronic atrial fibrillation, uns pecified Protime 02/18/2020 Z79.01 halfway (current) use of antic oagulants Lauryn Gabriel, [facility] 02/18/2020 Z79.01 halfway (current) use of antic oagulants Protime 02/14/2020 I48.20 Chronic atrial fibrillation, uns pecified Zehra Sprague M.D. 02/14/2020 I48.20 Chronic atrial fibrillation, uns pecified Lab Schedule 02/14/2020 I10 Essential (primary) hypertension Zehra Sprague M.D. 02/14/2020 I10 Essential (primary) hypertension Lab Schedule 02/14/2020 Z51.81 Encounter for therapeutic drug l evel monitoring Lauryn Gabriel [facility] 02/14/2020 Z51.81 Encounter for therapeutic drug l evel monitoring Zehra Sprague M.D. 02/14/2020 Z51.81 Encounter for therapeutic drug l evel monitoring Protime 02/14/2020 I48.20 Chronic atrial fibrillation, uns pecified Lauryn Gabriel, [facility] 02/14/2020 I48.20 Chronic atrial fibrillation, uns pecsteff Sprague M.D. 02/14/2020 Z51.81 Encounter for therapeutic drug l evel monitoring Lab Schedule 02/14/2020 Z79.01 meterman (current) use of antic oagulants Lauryn Gabriel, [facility] 02/14/2020 Z79.01 meterman (current) use of antic oagulants Zehra Sprague M.D. 02/14/2020 I48.20 Chronic atrial fibrillation, uns pecified Protime 02/14/2020 I48.20 Chronic atrial fibrillation, uns pecified Lab Schedule 02/14/2020 Z79.01 meterman (current) use of antic oagulants Lab Schedule 02/13/2020 I10 Essential (primary) hypertension Zehra Sprague M.D. 02/13/2020 K21.9 Gastro-esophageal reflux disease without esophagitis Zehra Sprague M.D. 02/13/2020 F17.210 Nicotine dependence, cigarettes, uncomplicated Zehra Sprague M.D. 02/13/2020 J44.9 Chronic obstructive pulmonary di sease, unspecified Zehra Sprague M.D. 02/05/2020 Z51.81 Encounter for therapeutic drug l evel monitoring Lauryn Gabriel, [facility] 02/05/2020 Z51.81 Encounter for therapeutic drug l evel monitoring Protime 02/05/2020 I48.20 Chronic atrial fibrillation, uns pecified Lauryn Gabriel, [facility] 02/05/2020 I48.20 Chronic atrial fibrillation, uns pecified Protime 02/05/2020 Z79.01 meterman (current) use of antic oagulants Lauryn Gabriel, [facility] 02/05/2020 Z79.01 halfway (current) use of antic oagulants Protime 01/31/2020 Z51.81 Encounter for therapeutic drug l evel monitoring Lauryn Gabriel, [facility] 01/31/2020 I48.20 Chronic atrial fibrillation, uns pecified Zehra Sprague M.D. 01/31/2020 Z51.81 Encounter for therapeutic drug l evel monitoring Protime 01/31/2020 Z79.01 halfway (current) use of antic oagulants Zehra Sprague M.D. 01/31/2020 I48.20 Chronic atrial fibrillation, uns pecified Lauryn Gabriel, [facility] 01/31/2020 F32.89 Other specified depressive episo ladarius Zehra Sprague M.D. 01/31/2020 I10 Essential (primary) hypertension Zehra Sprague M.D. 01/31/2020 Z79.01 halfway (current) use of antic oagulants MACEY SchaferP 01/31/2020 E05.90 Thyrotoxicosis, unspecified with out thyrotoxic crisis or sto Zehra Sprague M.D. 01/31/2020 I48.20 Chronic atrial fibrillation, uns pecified Protime 01/31/2020 K21.9 Gastro-esophageal reflux disease without esophagitis Zehra Sprague M.D. 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 01/31/2020 Z79.01 meterman (current) use of antic oagulants Protime 01/31/2020 M19.90 Unspecified osteoarthritis, unsp ecified site Zehra Sprague M.D. 01/31/2020 F17.210 Nicotine dependence, cigarettes, uncomplicated Zehra Sprague M.D. 01/31/2020 J44.9 Chronic obstructive pulmonary di sease, unspecified Zehra Sprague M.D. 01/31/2020 R32 Unspecified urinary incontinence Zehra Sprague M.D. 01/31/2020 G31.84 Mild cognitive impairment, so st ated Zehra Sprague M.D. 01/28/2020 Z51.81 Encounter for therapeutic drug l evel monitoring CAREY Schafer 01/28/2020 Z51.81 Encounter for therapeutic drug l evel monitoring Protime 01/28/2020 I48.20 Chronic atrial fibrillation, uns pecified CAREY Schafer 01/28/2020 I48.20 Chronic atrial fibrillation, uns pecified Protime 01/28/2020 Z79.01 halfway (current) use of antic oagulants CAREY Schafer 01/28/2020 Z79.01 meterman (current) use of antic oagulants Protime 01/25/2020 I10 Essential (primary) hypertension Zehra Sprague M.D. 01/25/2020 K21.9 Gastro-esophageal reflux disease without esophagitis Zehra Sprague M.D. 01/25/2020 F17.210 Nicotine dependence, cigarettes, uncomplicated Zehra Sprague M.D. 01/25/2020 J44.9 Chronic obstructive pulmonary di sease, unspecified Zehra Sprague M.D. 01/24/2020 Z79.01 halfway (current) use of antic oagulants Zehra Sprague M.D. 01/24/2020 Z79.01 halfway (current) use of antic oagulants Lab Schedule 01/24/2020 I48.20 Chronic atrial fibrillation, uns pecified Zehra Sprague M.D. 01/24/2020 Z51.81 Encounter for therapeutic drug l evel monitoring Lauryn Zita Amos, [facility] 01/24/2020 I48.20 Chronic atrial fibrillation, uns pecified Lab Schedule 01/24/2020 Z51.81 Encounter for therapeutic drug l evel monitoring Protime 01/24/2020 I48.20 Chronic atrial fibrillation, uns pecified Lauryn Zita Amos, [facility] 01/24/2020 I48.20 Chronic atrial fibrillation, uns pecified Protime 01/24/2020 Z79.01 meterman (current) use of antic oagulants Lauryn Gabriel, [facility] 01/24/2020 Z79.01 halfway (current) use of antic oagulants Protime 01/17/2020 Z51.81 Encounter for therapeutic drug l evel monitoring Lauryn Zita Amos, [facility] 01/17/2020 Z51.81 Encounter for therapeutic drug l evel monitoring Protime 01/17/2020 I48.20 Chronic atrial fibrillation, uns pecified Lauryn Zita Amos, [facility] 01/17/2020 I48.20 Chronic atrial fibrillation, uns pecified Protime 01/17/2020 Z79.01 meterman (current) use of antic oagulants Lauryn Gabriel, [facility] 01/17/2020 Z79.01 meterman (current) use of antic oagulants Protime 01/17/2020 Z23 Encounter for immunization Zehra Sprague M.D. 01/17/2020 Z23 Encounter for immunization Proti me 12/14/2019 I48.20 Chronic atrial fibrillation, uns pecified Lauryn Gabriel, [facility] 12/14/2019 I48.20 Chronic atrial fibrillation, uns pecified Protime 12/14/2019 Z79.01 meterman (current) use of antic oagulants Lauryn Ahumada Dandre, [facility] 12/14/2019 Z79.01 meterman (current) use of antic oagulants Protime 12/14/2019 Z51.81 Encounter for therapeutic drug l evel monitoring Lauryn Gabriel, [employer] 12/14/2019 Z51.81 Encounter for therapeutic drug l evel monitoring Protime 12/11/2019 I10 Essential (primary) hypertension Zehra Sprague M.D. 12/11/2019 F17.210 Nicotine dependence, cigarettes, uncomplicated Zehra Sprague M.D. 12/11/2019 E78.00 Pure hypercholesterolemia, unspe cified Zehra Sprague M.D. 12/11/2019 I48.20 Chronic atrial fibrillation, uns pecsteff Sprague M.D. 12/05/2019 I48.20 Chronic atrial fibrillation, uns pecified Lauryn Gabriel, [facility] 12/05/2019 I48.20 Chronic atrial fibrillation, uns pecified Protime 12/05/2019 Z79.01 halfway (current) use of antic oagulants Lauryn Gabriel, [facility] 12/05/2019 Z79.01 halfway (current) use of antic oagulants Protime 12/05/2019 Z51.81 Encounter for therapeutic drug l evel monitoring Lauryn Gabriel, [facility] 12/05/2019 Z51.81 Encounter for therapeutic drug l evel monitoring Protime 11/28/2019 I10 Essential (primary) hypertension Zehra Sprague M.D. 11/28/2019 F17.210 Nicotine dependence, cigarettes, uncomplicated Zehra Sprague M.D. 11/28/2019 E78.00 Pure hypercholesterolemia, unspe cified Zehra Sprague M.D. 11/28/2019 I48.20 Chronic atrial fibrillation, uns pecsteff Sprague M.D. Plan of Treatment Future Appointment(s):* 06/17/2020 2:30 pm - Zehra Sprague M.D. at [facility] 05/05/2020 - Zehra Sprague M.D.* I48.20 Chronic atrial fibrillation, unspecified * Z79.01 halfway (current) use of anticoagulants * I10 Essential (primary) hypertension * E05.90 Thyrotoxicosis, unspecified without thyrotoxic crisis or sto * K21.9 Gastro-esophageal reflux disease without esophagitis * I82.502 Chronic embolism and thrombosis of unspecified deep veins of left lower extremity * M15.9 Polyosteoarthritis, unspecified * F17.210 Nicotine dependence, cigarettes, uncomplicated * R32 Unspecified urinary incontinence * G31.84 Mild cognitive impairment, so stated * E78.00 Pure hypercholesterolemia, unspecified * E55.9 Vitamin D deficiency, unspecified * J44.9 Chronic obstructive pulmonary disease, unspecified * All * New Medication:* Bupropion Hydrochloride ER (XL) 150 mg - take 1 tablet by mouth in the morning * Comments:* 13. Depression. Patient given phone number for [facility]. I have also placed her on Bupropion XL 150 daily. I will do a follow up in 6 weeks. Support offered, encouragement given.14. Health Maintenance. COVID vaccine safety reviewed. Mammogram and bone density order is given with instructions to call phone number. Because of difficulty with her compliance with scripts I have asked her to try to use a Mail order which she believes she has through [facility]. She will contact us with that phone number. Functional Status Description No Information Available Mental Status Description No Information Available Referrals Refer to Dr Reason for Referral Status Appt Date [facility] CONSULT FOR BILAT KNEE PAIN A ND TRIGGER FINGERS Created [address] [place] [address] [phone] Sugar Negro MD CONSULT FOR URINARY INCONTINENCE Sent [facility] [address] [place] [address] [phone] [facility] CONSULT FOR RT TRIGGER THUMB Sen t [address] [place] [address] [phone]
--- OUTSIDE RECORDS SUMMARY | 2020-05-26 11:19 | CCD | Continuity of Care Document ---
Author Author Glenna Sprague M.D. Organization Unknown Address [address] [facility] [address] [place] [address] Phone [phone] Care Team Providers Care Investor Relations Coordinator Name Role Phone Darci Brush MD AUTM [phone] [facility] [phone] Douglas Ramírez MD AUTM Unavailable Problems Active [...] Consumes 3 glasses of wine per w [place] Tobacco Use Start: Unknown Patient is a [...] la Tablets 1 every day PO Vit [id number] Glenna Guajardo FNP 01/18/2017 Calcium 600/Vitamin D3 [id number] Tablets 1 by mouth qd Glenna Guajardo [...] CPT Code Status Date Vaccine Lot # 21811 Given 01/17/2020 Influenza Vaccin e Quadrivalent Preser/Antibiotic Free Im Use [id number] Given 05/29/2019 Shingrix Zoster Vaccine (HZV), Recombinant, Subunit, Adjuvanted 40042 Given 01/18/2019 Influenza Vaccin e Quadrivalent Preser/Antibiotic Free Im Use [id number] 24624 Given 01/18/2018 Influenza Virus Vaccine, Quadrivalent (Cciiv4), Derived From 7 Given 04/22/2017 Pneumovax 23 [id number] 74472 Given 01/18/2017 Influenza Vaccin e Quadrivalent Preser/Antibiotic Free Im Use [id number] Vital Signs Date Vital Result Comment 05/05/2020 1:08pm BP Systolic 148 mmHg RT Arm BP Diastolic 70 mmHg RT Arm Heart Rate 60 /min Height 66 inches 5'6" Weight 221.00 lb BMI (Body Mass Index) 35.7 kg/m2 02/05/2020 11:19am Weight 226.00 lb Results Test Acquired Date Facility Test Result H/L Range Note Complete Blood Count 05/05/2020 [facility] Digital Strategy Specialist: Dr Terrance Matson [place], [place] [id number] [phone] WBC 5.8 x10*3/UL 4.1 - 10.9 RBC [...] 2.0 - 7.8 Basic Metabolic Panel 05/05/2020 [facility] Digital Strategy Specialist: [place] [address] [phone] Glucose 98 mg/dL 74 - 99 1 [...] Low >60 3 Laboratory test finding 05/05/2020 [facility], Digital Strategy Specialist: [place] [address] [phone] Thyroid Stimulating Hormone 0.54 uIU/mL 0.3 6 - 3.74 Laboratory test finding 05/05/2020 [facility], Digital Strategy Specialist: Dr Terrance Matson [place] [id number] [phone] Vitamin D 25-Hydroxy <pending> Prothrombin Time/Inr 02/14/2020 [facility] enter [address], [place] [id number] [phone] Prothrombin Time 58.4 seconds High 12.5-14.3 Inr 6.49 Critical high 4 Complete Blood Count 02/14/2020 [facility] Digital Strategy Specialist: Dr Terrance Matson [place], [place] [id number] [phone] WBC 6.0 x10*3/UL 4.1 - 10.9 RBC [...] Wi-Inr Inr 7.9 Basic Metabolic Panel 02/14/2020 [facility] Digital Strategy Specialist: [place] [address] [phone] Glucose 100 mg/dL High 74 - 99 5 BUN 17 mg/dL 7 - 18 Creatinine 0.7 mg/dL 0.6 - 1.3 Sodium 141 mEq/L 136 - 145 Potassium 4.4 mEq/L 3.5 - 5.1 Chloride 103 mEq/L 98 - 107 Carbon Dioxide 24 mEq/L 21 - 32 Calcium 10.2 mg/dL High 8.5 - 10.1 6 GFR >= 60 mL/min >60 GFR >= 60 mL/min >60 7 Laboratory test finding 02/05/2020 [facility] 3.7 Laboratory test finding 01/31/2020 [facility] Digital Strategy Specialist: [place] [address] [phone] T4 Free 1.33 ng/dL 0.76 - 1.46 Ua Dipstick Only 01/31/2020 [facility] , Digital Strategy Specialist: Dr Terrance Matson [place] [id number] [phone] Urine Color YELLOW Yellow Urine Appearance CLEAR Clear Urine PH 6.5 units 5.0 - 9.0 Urine Specific [place] 1.010 1.005 - 1.030 Urine Leukocytes NEGATIVE Negative Urine Blood NEGATIVE Negative Urine Protein TRACE Negative -Trace Urine Glucose NEGATIVE mg/dL Negative Urine Nitrite NEGATIVE Negative Urine Ketone NEGATIVE mg/dL Negative Urine Bilirubin NEGATIVE Negative Urine Urobilinogen 0.2 mg/dL 0.2 - 1.0 Laboratory test finding 01/31/2020 [facility], Digital Strategy Specialist: [place] [address] [phone] Thyroid Stimulating Hormone 0.16 uIU/mL Low 0.3 6 - 3.74 Basic Metabolic Panel 01/31/2020 [facility] Digital Strategy Specialist: [place] [address] [phone] Glucose 101 mg/dL High 74 - 99 8 BUN 17 mg/dL 7 - 18 Creatinine 0.7 mg/dL 0.6 - 1.3 Sodium 143 mEq/L 136 - 145 Potassium 4.0 mEq/L 3.5 - 5.1 Chloride 104 mEq/L 98 - 107 Carbon Dioxide 30 mEq/L 21 - 32 Calcium 10.7 mg/dL High 8.5 - 10.1 9 GFR >= 60 mL/min >60 GFR >= 60 mL/min >60 10 Laboratory test finding 01/31/2020 [facility], Digital Strategy Specialist: [place] [address] [phone] Magnesium 2.1 mg/dL 1.8 - 2.4 Complete Blood Count 01/31/2020 [facility] Digital Strategy Specialist: [place] [address] [phone] WBC 6.2 x10*3/UL 4.1 - 10.9 RBC [...] 2.0 - 7.8 Laboratory test finding 01/31/2020 [facility] [address], [place] [id number] [phone] Digoxin Level 0.6 NG/ML Normal 0.5-2.0 Laboratory test finding 01/31/2020 [facility] 2.7 Laboratory test finding 01/28/2020 [facility] 1.2 Laboratory test finding 01/24/2020 [facility] 7.2 Complete Blood Count 01/24/2020 [facility] Digital Strategy Specialist: [place] [address] [phone] WBC 6.6 x10*3/UL 4.1 - 10.9 RBC [...] x10*3/UL 2.0 - 7.8 Prothrombin Time/Inr 01/24/2020 [facility] enter [address] [place] [address] [phone] Prothrombin Time 49.4 seconds High 12.5-14.3 Inr 5.24 Critical high 11 Laboratory test finding 01/17/2020 [facility] 1.3 [...] LITTLE GFR LEFT ESRD GFR <15 ON LEGAL BILLING SPECIALIST 4 THERAPUTIC HUMAN INR VALUES INDICATIONS NORMAL RANGES PROPHYLAXIS/TREATMENT OF: VENOUS THROMBOSIS 2.0-3.0 PULMONARY EMBOLISM 2.0-3.0 PREVENTION OF SYSTEMIC EMBOLISM FROM: TISSUE HEART VALVES 2.0-3.0 ACUTE MYOCARDIAL INFARCTION 2.0-3.0 VALVULAR HEART DISEASE 2.0-3.0 ATRIAL FIBRILLATION 2.0-3.0 MECHANICAL VALVES(HIGH RISK) 2.5-3.5 RECURRENT MYOCARDIAL INFARCTION 2.5-3.5 5 100-125 mg/dL PRE-DIABET ES/FASTING >126 mg/dL DIABETES/FASTING 6 NOTE: RESULT VERIFIED. 7 CHRONIC KIDNEY DISEASE STAGI NG PER NKF STAGE I & II GFR >= 60 NORMAL TO MILDLY DECREASED STAGE III GFR 30-59 MODERATELY DECREASED STAGE IV GFR 15-29 SEVERELY DECREASED STAGE V GFR <15 VERY LITTLE GFR LEFT ESRD GFR <15 ON LEGAL BILLING SPECIALIST 8 100-125 mg/dL PRE-DIABET ES/FASTING >126 mg/dL DIABETES/FASTING 9 NOTE: RESULT VERIFIED. 10 CHRONIC KIDNEY DISEASE STAGI NG PER NKF STAGE I & II GFR >= 60 NORMAL TO MILDLY DECREASED STAGE III GFR 30-59 MODERATELY DECREASED STAGE IV GFR 15-29 SEVERELY DECREASED STAGE V GFR <15 VERY LITTLE GFR LEFT ESRD GFR <15 ON LEGAL BILLING SPECIALIST 11 THERAPUTIC HUMAN INR VALUES INDICATIONS NORMAL RANGES PROPHYLAXIS/TREATMENT OF: VENOUS THROMBOSIS 2.0-3.0 PULMONARY EMBOLISM 2.0-3.0 PREVENTION OF SYSTEMIC EMBOLISM FROM: TISSUE HEART VALVES 2.0-3.0 ACUTE MYOCARDIAL INFARCTION 2.0-3.0 VALVULAR HEART DISEASE 2.0-3.0 ATRIAL FIBRILLATION 2.0-3.0 MECHANICAL VALVES(HIGH RISK) 2.5-3.5 RECURRENT MYOCARDIAL INFARCTION 2.5-3.5 Procedures Date Code Description Status 01/31/2020 42880 Brief Emotional/Beha v Assessment W/ Scoring Doc Per Standard Inst Completed Medical Devices Description No Information Available Encounters Type Date Location Provider Dx Diagnosis Office Visit 05/05/2020 1:00p [facility] M.[facility] I48.20 Chronic atrial fibrillation, unspecified Z79.01 penitentiary (current) use of a nticoagulants I10 Essential [...] y disease, unspecified Office Visit 01/31/2020 10:30a [facility] M.D. I48.20 Chronic atrial fibrillation, unspecified Z79.01 penitentiary (current) use of a nticoagulants F32.89 Other [...] uns pecified Zehra Sprague M.D. 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.01 penitentiary (current) use of antic oagulants Zehra Sprague M.D. 05/05/2020 I10 Essential (primary) hypertension Zehra Sprague M.D. 05/05/2020 E05.90 Thyrotoxicosis, unspecified with out thyrotoxic crisis or sto Zehra Sprague M.D. 05/05/2020 K21.9 Gastro-esophageal reflux disease without esophagitis Zehra Sprague M.D. 05/05/2020 I82.502 Chronic embolism and thrombosis of unspecified deep veins of left lower extremity Zehra Sprague M.D. 05/05/2020 M15.9 Polyosteoarthritis, amandoified Zehra Sprague M.D. 05/05/2020 F17.210 Nicotine dependence, [...] therapeutic drug l evel monitoring Lauryn Gabriel, [facility] 02/18/2020 Z51.81 Encounter for therapeutic drug l evel monitoring Protime 02/18/2020 I48.20 Chronic atrial fibrillation, uns pecified Lauryn Gabriel, [facility] 02/18/2020 I48.20 Chronic atrial fibrillation, uns pecified Protime 02/18/2020 Z79.01 superintendent container terminal (current) use of antic oagulants Lauryn Gabriel, [facility] 02/18/2020 Z79.01 superintendent container terminal (current) use of antic oagulants Protime 02/14/2020 I48.20 Chronic atrial fibrillation, uns pecsteff Sprague M.D. 02/14/2020 I48.20 Chronic atrial fibrillation, uns pecified Lab Schedule 02/14/2020 I10 Essential (primary) hypertension Zehra Sprague M.D. 02/14/2020 I10 Essential (primary) hypertension Lab Schedule 02/14/2020 Z51.81 Encounter for therapeutic drug l evel monitoring Lauryn Gabriel, [facility] 02/14/2020 Z51.81 Encounter for therapeutic drug l evel monitoring Zehra Sprague M.D. 02/14/2020 Z51.81 Encounter for therapeutic drug l evel monitoring Protime 02/14/2020 I48.20 Chronic atrial fibrillation, uns pecified Lauryn Gabriel [facility] 02/14/2020 I48.20 Chronic atrial fibrillation, uns pecsteff Sprague M.D. 02/14/2020 Z51.81 Encounter for therapeutic drug l evel monitoring Lab Schedule 02/14/2020 Z79.01 superintendent container terminal (current) use of antic oagulants Lauryn Gabriel, [facility] 02/14/2020 Z79.01 penitentiary (current) use of antic oagulants Zehra Sprague M.D. 02/14/2020 I48.20 Chronic atrial fibrillation, uns pecified Protime 02/14/2020 I48.20 Chronic atrial fibrillation, uns pecified Lab Schedule 02/14/2020 Z79.01 superintendent container terminal (current) use of antic oagulants Lab Schedule 02/13/2020 I10 Essential (primary) hypertension Zehra Sprague M.D. 02/13/2020 K21.9 Gastro-esophageal reflux disease without esophagitis Zehra Sprague M.D. 02/13/2020 F17.210 Nicotine dependence, cigarettes, uncomplicated Zehra Sprague M.D. 02/13/2020 J44.9 Chronic obstructive pulmonary di sease, unspecified Zehra Sprague M.D. 02/05/2020 Z51.81 Encounter for therapeutic drug l evel monitoring Lauryn Gabriel, [facility] 02/05/2020 Z51.81 Encounter for therapeutic drug l evel monitoring Protime 02/05/2020 I48.20 Chronic atrial fibrillation, uns pecified Lauryn Gabriel, [facility] 02/05/2020 I48.20 Chronic atrial fibrillation, uns pecified Protime 02/05/2020 Z79.01 penitentiary (current) use of antic oagulants Lauryn Gabriel [facility] 02/05/2020 Z79.01 penitentiary (current) use of antic oagulants Protime 01/31/2020 Z51.81 Encounter for therapeutic drug l evel monitoring Lauryn Gabriel, [facility] 01/31/2020 I48.20 Chronic atrial fibrillation, uns pecified Zehra Sprague M.D. 01/31/2020 Z51.81 Encounter for therapeutic drug l evel monitoring Protime 01/31/2020 Z79.01 superintendent container terminal (current) use of antic oagulants Zehra Sprague M.D. 01/31/2020 I48.20 Chronic atrial fibrillation, uns pecified Lauryn Gabriel [facility] 01/31/2020 F32.89 Other specified depressive episo ladarius Zehra Sprague M.D. 01/31/2020 I10 Essential (primary) hypertension Zehra Sprague M.D. 01/31/2020 Z79.01 penitentiary (current) use of antic oagulants Lauryn Gabriel [facility] 01/31/2020 E05.90 Thyrotoxicosis, unspecified with out thyrotoxic crisis or sto Zehra Sprague M.D. 01/31/2020 I48.20 Chronic atrial fibrillation, uns pecified Protime 01/31/2020 K21.9 Gastro-esophageal reflux disease without esophagitis Zehra Sprague M.D. 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 01/31/2020 Z79.01 penitentiary (current) use of antic oagulants Protime 01/31/2020 M19.90 Unspecified osteoarthritis, unsp ecified site Zehra Sprague M.D. 01/31/2020 F17.210 Nicotine dependence, cigarettes, uncomplicated Zehra Sprague M.D. 01/31/2020 J44.9 Chronic obstructive pulmonary di sease, amandoified Zehra Sprague M.D. 01/31/2020 R32 Unspecified urinary incontinence Zehra Sprague M.D. 01/31/2020 G31.84 Mild cognitive impairment, so st ated Zehra Sprague M.D. 01/28/2020 Z51.81 Encounter for therapeutic drug l evel monitoring Lauryn Gabriel [facility] 01/28/2020 Z51.81 Encounter for therapeutic drug l evel monitoring Protime 01/28/2020 I48.20 Chronic atrial fibrillation, uns pecified Lauryn Gabriel [facility] 01/28/2020 I48.20 Chronic atrial fibrillation, uns pecified Protime 01/28/2020 Z79.01 penitentiary (current) use of antic oagulants Lauryn Gabriel [facility] 01/28/2020 Z79.01 penitentiary (current) use of antic oagulants Protime 01/25/2020 I10 Essential (primary) hypertension Zehra Sprague M.D. 01/25/2020 K21.9 Gastro-esophageal reflux disease without esophagitis Zehra Sprague M.D. 01/25/2020 F17.210 Nicotine dependence, cigarettes, uncomplicated Zehra Sprague M.D. 01/25/2020 J44.9 Chronic obstructive pulmonary di sease, amandoified Zehra Sprague M.D. 01/24/2020 Z79.01 penitentiary (current) use of antic oagulants Zehra Sprague M.D. 01/24/2020 Z79.01 superintendent container terminal (current) use of antic oagulants Lab Schedule 01/24/2020 I48.20 Chronic atrial fibrillation, uns pecified Zehra Sprague M.D. 01/24/2020 Z51.81 Encounter for therapeutic drug l evel monitoring Lauryn [place], [employer]YING EQUIPMENT MECHANIC 01/24/2020 I48.20 Chronic atrial fibrillation, uns pecified Lab Schedule 01/24/2020 Z51.81 Encounter for therapeutic drug l evel monitoring Protime 01/24/2020 I48.20 Chronic atrial fibrillation, uns pecified Lauryn [place], PHOTOCOPYING EQUIPMENT MECHANIC 01/24/2020 I48.20 Chronic atrial fibrillation, uns pecified Protime 01/24/2020 Z79.01 superintendent container terminal (current) use of antic oagulants Lauryn [place], PHOTOCOPYING EQUIPMENT MECHANIC 01/24/2020 Z79.01 superintendent container terminal (current) use of antic oagulants Protime 01/17/2020 Z51.81 Encounter for therapeutic drug l evel monitoring Lauryn [place], PHOTOCOPYING EQUIPMENT MECHANIC 01/17/2020 Z51.81 Encounter for therapeutic drug l evel monitoring Protime 01/17/2020 I48.20 Chronic atrial fibrillation, uns pecified Lauryn [place], PHOTOCOPYING EQUIPMENT MECHANIC 01/17/2020 I48.20 Chronic atrial fibrillation, uns pecified Protime 01/17/2020 Z79.01 superintendent container terminal (current) use of antic oagulants Lauryn [place], PHOTOCOPYING EQUIPMENT MECHANIC 01/17/2020 Z79.01 penitentiary (current) use of antic oagulants Protime 01/17/2020 Z23 Encounter for immunization Zehra Sprague M.D. 01/17/2020 Z23 Encounter for immunization Proti me 12/14/2019 I48.20 Chronic atrial fibrillation, uns pecified Lauryn [place], PHOTOCOPYING EQUIPMENT MECHANIC 12/14/2019 I48.20 Chronic atrial fibrillation, uns pecified Protime 12/14/2019 Z79.01 superintendent container terminal (current) use of antic oagulants Lauryn [place], PHOTOCOPYING EQUIPMENT MECHANIC 12/14/2019 Z79.01 superintendent container terminal (current) use of antic oagulants Protime 12/14/2019 Z51.81 Encounter for therapeutic drug l evel monitoring Lauryn [place], PHOTOCOPYING EQUIPMENT MECHANIC 12/14/2019 Z51.81 Encounter for therapeutic drug l evel monitoring Protime 12/11/2019 I10 Essential (primary) hypertension Zehra Sprague M.D. 12/11/2019 F17.210 Nicotine dependence, cigarettes, uncomplicated Zehra Sprague M.D. 12/11/2019 E78.00 Pure hypercholesterolemia, unspe cified Zehra Sprague M.D. 12/11/2019 I48.20 Chronic atrial fibrillation, uns pecified Zehra Sprague M.D. 12/05/2019 I48.20 Chronic atrial fibrillation, uns pecified Lauryn Gabriel, [facility] 12/05/2019 I48.20 Chronic atrial fibrillation, uns pecified Protime 12/05/2019 Z79.01 penitentiary (current) use of antic oagulants Lauryn Gabriel, [facility] 12/05/2019 Z79.01 superintendent container terminal (current) use of antic oagulants Protime 12/05/2019 Z51.81 Encounter for therapeutic drug l evel monitoring Lauryn Gabriel, [facility] 12/05/2019 Z51.81 Encounter for therapeutic drug l evel monitoring Protime 11/28/2019 I10 Essential (primary) hypertension Zehra Sprague M.D. 11/28/2019 F17.210 Nicotine dependence, cigarettes, uncomplicated Zehra Sprague M.D. 11/28/2019 E78.00 Pure hypercholesterolemia, unspe cisue Sprague M.D. 11/28/2019 I48.20 Chronic atrial fibrillation, uns pecsteff Sprague M.D. Plan of Treatment Future Appointment(s):* 06/17/2020 2:30 pm - Zehra Sprague M.D. at [facility] 05/05/2020 - Zehra Sprague M.D.* I48.20 Chronic atrial fibrillation, unspecified * Z79.01 superintendent container terminal (current) use of anticoagulants * I10 Essential [...] 13. Depression. Patient given phone number for [facility] health clinic. I have also placed her [...] order which she believes she has through [facility]. She will contact us with that phone number. Functional Status Description No Information Available Mental Status Description No Information Available Referrals Refer to Reason for Referral Status Appt Date Sugar Negro MD CONSULT FOR URINARY INCONTINENCE Sent [facility] [address] [place], [place] [address] [phone] [facility] CONSULT FOR RT TRIGGER THUMB Sen t [address] [place] [address] [phone]
--- OUTSIDE RECORDS SUMMARY | 2020-05-26 11:19 | CCD | Continuity of Care Document ---
Author Author Glenna Sprague M.D. Organization Unknown Address [address] [facility] [address] [place] [address] Phone [phone] Care Team Providers Care Clerical Warehouseman Name Role Phone Darci Brush MD AUTM [phone] [facility] AUTM [phone] Douglas Ramírez MD AUTM Unavailable Problems Active [...] Consumes 3 glasses of wine per w seminole Tobacco Use Start: Unknown Patient is a [...] la Tablets 1 every day PO Vit [id number] Glenna Guajardo FNP 01/18/2017 Calcium 600/Vitamin D3 [id number] Tablets 1 by mouth qd Glenna Guajardo [...] CPT Code Status Date Vaccine Lot # [id number] Given 01/17/2020 Influenza Vaccin e Quadrivalent Preser/Antibiotic Free Im Use [id number] 81125 Given 05/29/2019 Shingrix Zoster Vaccine (HZV), Recombinant, Subunit, Adjuvanted 50550 Given 01/18/2019 Influenza Vaccin e Quadrivalent Preser/Antibiotic Free Im Use [id number] 13036 Given 01/18/2018 Influenza Virus Vaccine, Quadrivalent ([id number]), Derived From 4 Given 04/22/2017 Pneumovax 23 [id number] Given 01/18/2017 Influenza Vaccin e Quadrivalent Preser/Antibiotic Free Im Use [id number] Vital Signs Date Vital Result Comment 05/05/2020 1:08pm BP Systolic 148 mmHg RT Arm BP Diastolic 70 mmHg RT Arm Heart Rate 60 /min Height 66 inches 5'6" Weight 221.00 lb BMI (Body Mass Index) 35.7 kg/m2 02/05/2020 11:19am Weight 226.00 lb Results Test Acquired Date Facility Test Result H/L Range Note Complete Blood Count 05/05/2020 [facility] Data Visualization Developer: Dr Terrance [place]son [place], [place] [id number] [phone] WBC 5.8 x10*3/UL 4.1 - 10.9 RBC [...] 2.0 - 7.8 Basic Metabolic Panel 05/05/2020 [facility] Data Visualization Developer: [place] [address] [phone] Glucose 98 mg/dL 74 - 99 1 [...] Low >60 3 Laboratory test finding 05/05/2020 [facility], Data Visualization Developer: [place] [address] [phone] Thyroid Stimulating Hormone 0.54 uIU/mL 0.3 6 - 3.74 Laboratory test finding 05/05/2020 [facility], Data Visualization Developer: [place] [address] [phone] Vitamin D 25-Hydroxy 32.7 24.0 - 80.0 4 Prothrombin Time/Inr 02/14/2020 [facility] [address] [place], [place] [id number] [phone] Prothrombin Time 58.4 seconds High 12.5-14.3 Inr 6.49 Critical high 5 Complete Blood Count 02/14/2020 [facility] Data Visualization Developer: [place] [address] [phone] WBC 6.0 x10*3/UL 4.1 - 10.9 RBC [...] Wi-Inr Inr 7.9 Basic Metabolic Panel 02/14/2020 [facility] Data Visualization Developer: [place] [address] [phone] Glucose 100 mg/dL High 74 - 99 [...] Wi-Inr Inr 3.7 Laboratory test finding 01/31/2020 [facility], Data Visualization Developer: Dr Terrance Matson [place], [place] [id number] [phone] T4 Free 1.33 ng/dL 0.76 - 1.46 Ua Dipstick Only 01/31/2020 [facility] , Data Visualization Developer: Dr Terrance [place]son [place], [place] [address] [phone] Urine Color YELLOW Yellow Urine Appearance CLEAR Clear Urine PH 6.5 units 5.0 - 9.0 Urine Specific [place] 1.010 1.005 - 1.030 Urine Leukocytes NEGATIVE Negative Urine Blood NEGATIVE Negative Urine Protein TRACE Negative -Trace Urine Glucose NEGATIVE mg/dL Negative Urine Nitrite NEGATIVE Negative Urine Ketone NEGATIVE mg/dL Negative Urine Bilirubin NEGATIVE Negative Urine Urobilinogen 0.2 mg/dL 0.2 - 1.0 Laboratory test finding 01/31/2020 [facility] Data Visualization Developer: [place] [address] [phone] Thyroid Stimulating Hormone 0.16 uIU/mL Low 0.3 6 - 3.74 Basic Metabolic Panel 01/31/2020 [facility] Data Visualization Developer: Dr [place]ance [place] [id number] [phone] Glucose 101 mg/dL High 74 - 99 [...] mL/min >60 11 Laboratory test finding 01/31/2020 [facility] Data Visualization Developer: [place] [address] [phone] Magnesium 2.1 mg/dL 1.8 - 2.4 Complete Blood Count 01/31/2020 [facility], Data Visualization Developer: [place] [address] [phone] WBC 6.2 x10*3/UL 4.1 - 10.9 RBC [...] 2.0 - 7.8 Laboratory test finding 01/31/2020 [facility] [address] [place] [address] [phone] Digoxin Level 0.6 NG/ML Normal 0.5-2.0 Laboratory test finding 01/31/2020 [facility] Inr 2.7 Laboratory test finding 01/28/2020 [facility]-In[facility] Inr 1.2 Laboratory test finding 01/24/2020 Wi-Inr Inr 7.2 Complete Blood Count 01/24/2020 [facility] Data Visualization Developer: [place] [address] [phone] WBC 6.6 x10*3/UL 4.1 - 10.9 RBC [...] x10*3/UL 2.0 - 7.8 Prothrombin Time/Inr 01/24/2020 [facility] enter [address] [place] [id number] [phone] Prothrombin Time 49.4 seconds High 12.5-14.3 Inr [...] LITTLE GFR LEFT ESRD GFR <15 ON FLAKEBOARD LINE TENDER 4 This test was performed boo-box Vitamin D immunoassay kit. Values obtained with [...] LITTLE GFR LEFT ESRD GFR <15 ON FLAKEBOARD LINE TENDER 9 100-125 mg/dL PRE-DIABET ES/FASTING >126 mg/dL DIABETES/FASTING 10 NOTE: RESULT VERIFIED. 11 CHRONIC KIDNEY DISEASE STAGI NG PER NKF STAGE I & II GFR >= 60 NORMAL TO MILDLY DECREASED STAGE III GFR 30-59 MODERATELY DECREASED STAGE IV GFR 15-29 SEVERELY DECREASED STAGE V GFR <15 VERY LITTLE GFR LEFT ESRD GFR <15 ON FLAKEBOARD LINE TENDER 12 THERAPUTIC HUMAN INR VALUES INDICATIONS NORMAL RANGES PROPHYLAXIS/TREATMENT OF: VENOUS THROMBOSIS 2.0-3.0 PULMONARY EMBOLISM 2.0-3.0 PREVENTION OF SYSTEMIC EMBOLISM FROM: TISSUE HEART VALVES 2.0-3.0 ACUTE MYOCARDIAL INFARCTION 2.0-3.0 VALVULAR HEART DISEASE 2.0-3.0 ATRIAL FIBRILLATION 2.0-3.0 MECHANICAL VALVES(HIGH RISK) 2.5-3.5 RECURRENT MYOCARDIAL INFARCTION 2.5-3.5 Procedures Date Code Description Status 01/31/2020 96026 Brief Emotional/Beha v Assessment W/ Scoring Doc Per Standard Inst Completed Medical Devices Description No Information Available Encounters Type Date Location Provider Dx Diagnosis Office Visit 05/05/2020 1:00p [facility] M.D. I48.20 Chronic atrial fibrillation, unspecified Z79.01 care home (current) use of a nticoagulants I10 Essential [...] y disease, unspecified Office Visit 01/31/2020 10:30a [facility] M.D. 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 02/14/2020 I48.20 Chronic atrial fibrillation, uns pecified Lab Schedule 02/14/2020 I10 Essential (primary) hypertension Zehra Sprague M.D. 02/14/2020 I10 Essential (primary) hypertension Lab Schedule 02/14/2020 Z51.81 Encounter for therapeutic drug l evel monitoring Lauryn Gabriel [facility] 02/14/2020 Z51.81 Encounter for therapeutic drug l evel monitoring Zehra Sprague M.D. 02/14/2020 Z51.81 Encounter for therapeutic drug l evel monitoring Protime 02/14/2020 I48.20 Chronic atrial fibrillation, uns pecified Lauryn Gabriel [facility] 02/14/2020 I48.20 Chronic atrial fibrillation, uns pecsteff Sprague M.D. 02/14/2020 Z51.81 Encounter for therapeutic drug l evel monitoring Lab Schedule 02/14/2020 Z79.01 care home (current) use of antic oagulants Lauryn Gabriel [facility] 02/14/2020 Z79.01 care home (current) use of antic oagulants Zehra Sprague M.D. 02/14/2020 I48.20 Chronic atrial fibrillation, uns pecified Protime 02/14/2020 I48.20 Chronic atrial fibrillation, uns pecified Lab Schedule 02/14/2020 Z79.01 care home (current) use of antic oagulants Lab Schedule 02/13/2020 I10 Essential (primary) hypertension Zehra Sprague M.D. 02/13/2020 K21.9 Gastro-esophageal reflux disease without esophagitis Zehra Sprague M.D. 02/13/2020 F17.210 Nicotine dependence, cigarettes, uncomplicated Zehra Sprague M.D. 02/13/2020 J44.9 Chronic obstructive pulmonary di sease, unspecified Zehra Sprague M.D. 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 01/31/2020 Z51.81 Encounter for therapeutic drug l evel monitoring Protime 01/31/2020 Z79.01 care home (current) use of antic oagulants Zehra Sprague M.D. 01/31/2020 I48.20 Chronic atrial fibrillation, uns pecified CAREY Schafer 01/31/2020 F32.89 Other specified depressive episo ladarius Zehra Sprague M.D. 01/31/2020 I10 Essential (primary) hypertension Zehra Sprague M.D. 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 01/31/2020 I48.20 Chronic atrial fibrillation, uns pecified Protime 01/31/2020 K21.9 Gastro-esophageal reflux disease without esophagitis Zehra Sprague M.D. 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 01/31/2020 Z79.01 care home (current) use of antic oagulants Protime 01/31/2020 [...] therapeutic drug l evel monitoring Lauryn Gabriel [facility] 01/28/2020 Z51.81 Encounter for therapeutic drug l evel monitoring Protime 01/28/2020 I48.20 Chronic atrial fibrillation, uns pecified Lauryn Gabriel [facility] 01/28/2020 I48.20 Chronic atrial fibrillation, uns pecified Protime 01/28/2020 Z79.01 care home (current) use of antic oagulants Lauryn Gabriel [facility] 01/28/2020 Z79.01 care home (current) use of antic oagulants Protime 01/25/2020 I10 Essential (primary) hypertension Zehra Sprague M.D. 01/25/2020 K21.9 Gastro-esophageal reflux disease without esophagitis Zehra Sprague M.D. 01/25/2020 F17.210 Nicotine dependence, cigarettes, uncomplicated Zehra Sprague M.D. 01/25/2020 J44.9 Chronic obstructive pulmonary di sease, unspecified Zehra Sprague M.D. 01/24/2020 Z79.01 care home (current) use of antic oagulants Zehra Sprague M.D. 01/24/2020 Z79.01 care home (current) use of antic oagulants Lab Schedule 01/24/2020 I48.20 Chronic atrial fibrillation, uns pecified Zehra Sprague M.D. 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 12/11/2019 F17.210 Nicotine dependence, cigarettes, uncomplicated Zehra Sprague M.D. 12/11/2019 E78.00 Pure hypercholesterolemia, unspe cified Zehra Sprague M.D. 12/11/2019 I48.20 Chronic atrial fibrillation, uns pecified Zehra Sprague M.D. 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 11/28/2019 F17.210 Nicotine dependence, cigarettes, uncomplicated Zehra Sprague M.D. 11/28/2019 E78.00 Pure hypercholesterolemia, unspe cified Zehra Sprague M.D. 11/28/2019 I48.20 Chronic atrial fibrillation, uns pecified Zehra Sprague M.D. Plan of Treatment Future Appointment(s):* 06/17/2020 2:30 pm - Zeh[facility] at [facility] 05/05/2020 - Zehra Sprague M.D.* I48.20 Chronic atrial fibrillation, unspecified * Z79.01 care home (current) use of anticoagulants * I10 Essential [...] 13. Depression. Patient given phone number for [facility]. I have also placed her [...] order which she believes she has through [facility]. She will contact us with that phone number. Functional Status Description No Information Available Mental Status Description No Information Available Referrals Refer to Reason for Referral Status Appt Date [facility] CONSULT FOR BILAT KNEE PAIN A ND TRIGGER FINGERS Created [address] [place] [address] [phone] Sugar Negro MD CONSULT FOR URINARY INCONTINENCE Sent [facility] [address] [place] [address] [phone] [facility] CONSULT FOR RT TRIGGER THUMB Sen t [address] [place] [address] [phone]
--- OUTSIDE RECORDS SUMMARY | 2020-05-26 11:19 | CCD | Continuity of Care Document ---
Author Author Glenna Sprague M.D. Organization Unknown Address [address] [facility] [address] [place] [address] Phone [phone] Care Team Providers Care Director Compliance Name Role Phone Darci Brush MD AUTM [phone] [facility] [phone] Douglas Ramírez MD AUTM Unavailable Problems Active [...] Consumes 3 glasses of wine per w [place] Tobacco Use Start: Unknown Patient is a [...] la Tablets 1 every day PO Vit [id number] DJ=266 Glenna Guajardo FNP 01/18/2017 Calcium 600/Vitamin D3 592-062cm-Vktr Tablets 1 by mouth qd Glenna Guajardo [...] CPT Code Status Date Vaccine Lot # [id number] Given 01/17/2020 Influenza Vaccin e Quadrivalent Preser/Antibiotic Free Im Use [id number] 27513 Given 05/29/2019 Shingrix Zoster Vaccine (HZV), Recombinant, Subunit, Adjuvanted 71232 Given 01/18/2019 Influenza Vaccin e Quadrivalent Preser/Antibiotic Free Im Use [id number] 89923 Given 01/18/2018 Influenza Virus Vaccine, Quadrivalent (Cciiv4), Derived From 4 Given 04/22/2017 Pneumovax 23 [id number] Given 01/18/2017 Influenza Vaccin e Quadrivalent Preser/Antibiotic Free Im Use [id number] Vital Signs Date Vital Result Comment 05/05/2020 1:08pm BP Systolic 148 mmHg RT Arm BP Diastolic 70 mmHg RT Arm Heart Rate 60 /min Height 66 inches 5'6" Weight 221.00 lb BMI (Body Mass Index) 35.7 kg/m2 02/05/2020 11:19am Weight 226.00 lb Results Test Acquired Date Facility Test Result H/L Range Note Laboratory test finding 05/05/2020 [facility] kristin ruth Social Welfare Administrator: [facility] Terrance [place] [id number] [phone] TSH <pending> Prothrombin Time/Inr 02/14/2020 [facility] [address] [place] [address] [phone] Prothrombin Time 58.4 seconds High 12.5-14.3 Inr 6.49 Critical high 1 Complete Blood Count 02/14/2020 [facility] Social Welfare Administrator: [place] [address] [phone] WBC 6.0 x10*3/UL 4.1 - 10.9 RBC [...] Wi-Inr Inr 7.9 Basic Metabolic Panel 02/14/2020 [facility] Social Welfare Administrator: [place] [address] [phone] Glucose 100 mg/dL High 74 - 99 2 BUN 17 mg/dL 7 - 18 Creatinine 0.7 mg/dL 0.6 - 1.3 Sodium 141 mEq/L 136 - 145 Potassium 4.4 mEq/L 3.5 - 5.1 Chloride 103 mEq/L 98 - 107 Carbon Dioxide 24 mEq/L 21 - 32 Calcium 10.2 mg/dL High 8.5 - 10.1 3 GFR >= 60 mL/min >60 GFR >= 60 mL/min >60 4 Laboratory test finding 02/05/2020 [facility] 3.7 Laboratory test finding 01/31/2020 [place] [facility] faraz Social Welfare Administrator: [place] Terr[place] [address] [phone] T4 Free 1.33 ng/dL 0.76 - 1.46 Ua Dipstick [facility]: [place] [address] [phone] Urine Color YELLOW Yellow Urine Appearance CLEAR Clear Urine PH 6.5 units 5.0 - 9.0 Urine Specific Lilly 1.010 1.005 - 1.030 Urine Leukocytes NEGATIVE Negative Urine Blood NEGATIVE Negative Urine Protein TRACE Negative -Trace Urine Glucose NEGATIVE mg/dL Negative Urine Nitrite NEGATIVE Negative Urine Ketone NEGATIVE mg/dL Negative Urine Bilirubin NEGATIVE Negative Urine Urobilinogen 0.2 mg/dL 0.2 - 1.0 Laboratory test finding 01/31/2020 [facility] faraz Social Welfare Administrator: [place] Terr[place] [address] [phone] Thyroid Stimulating Hormone 0.16 uIU/mL Low 0.3 6 - 3.74 Basic Metabolic Panel 01/31/2020 [facility] Social Welfare Administrator: Dr Terr[place] [address] [phone] Glucose 101 mg/dL High 74 - 99 5 BUN 17 mg/dL 7 - 18 Creatinine 0.7 mg/dL 0.6 - 1.3 Sodium 143 mEq/L 136 - 145 Potassium 4.0 mEq/L 3.5 - 5.1 Chloride 104 mEq/L 98 - 107 Carbon Dioxide 30 mEq/L 21 - 32 Calcium 10.7 mg/dL High 8.5 - 10.1 6 GFR >= 60 mL/min >60 GFR >= 60 mL/min >60 7 Laboratory test finding 01/31/2020 [facility] Social Welfare Administrator: [place] [address] [phone] Magnesium 2.1 mg/dL 1.8 - 2.4 Complete Blood Count 01/31/2020 [facility] Administrator: [place] [address] [phone] WBC 6.2 x10*3/UL 4.1 - 10.9 RBC [...] 2.0 - 7.8 Laboratory test finding 01/31/2020 [facility] [address] [place] [address] [phone] Digoxin Level 0.6 NG/ML Normal 0.5-2.0 Laboratory test finding 01/31/2020 [facility] 2.7 Laboratory test finding 01/28/2020 [facility] Inr 1.2 Laboratory test finding 01/24/2020 [facility] Inr 7.2 Complete Blood Count 01/24/2020 [facility] Social Welfare Administrator: [place] [address] [phone] WBC 6.6 x10*3/UL 4.1 - 10.9 RBC [...] x10*3/UL 2.0 - 7.8 Prothrombin Time/Inr 01/24/2020 [facility] [address] [place] [address] [phone] Prothrombin Time 49.4 seconds High 12.5-14.3 Inr 5.24 Critical high 8 Laboratory test finding 01/17/2020 [facility] In[facility] 1.3 Laboratory test finding 12/14/2019 [facility] Inr 3.7 Laboratory test finding 12/05/2019 [facility] Inr 1.3 1 THERAPUTIC HUMAN INR VALUES INDICATIONS NORMAL RANGES PROPHYLAXIS/TREATMENT OF: VENOUS THROMBOSIS 2.0-3.0 PULMONARY EMBOLISM 2.0-3.0 PREVENTION OF SYSTEMIC EMBOLISM FROM: TISSUE HEART VALVES 2.0-3.0 ACUTE MYOCARDIAL INFARCTION 2.0-3.0 VALVULAR HEART DISEASE 2.0-3.0 ATRIAL FIBRILLATION 2.0-3.0 MECHANICAL VALVES(HIGH RISK) 2.5-3.5 RECURRENT MYOCARDIAL INFARCTION 2.5-3.5 2 100-125 mg/dL PRE-DIABET ES/FASTING >126 mg/dL DIABETES/FASTING 3 NOTE: RESULT VERIFIED. 4 CHRONIC KIDNEY DISEASE STAGI NG PER NKF STAGE I & II GFR >= 60 NORMAL TO MILDLY DECREASED STAGE III GFR 30-59 MODERATELY DECREASED STAGE IV GFR 15-29 SEVERELY DECREASED STAGE V GFR <15 VERY LITTLE GFR LEFT ESRD GFR <15 ON STRIKE OUT MACHINE OPERATOR 5 100-125 mg/dL PRE-DIABET ES/FASTING >126 mg/dL DIABETES/FASTING 6 NOTE: RESULT VERIFIED. 7 CHRONIC KIDNEY DISEASE STAGI NG PER NKF STAGE I & II GFR >= 60 NORMAL TO MILDLY DECREASED STAGE III GFR 30-59 MODERATELY DECREASED STAGE IV GFR 15-29 SEVERELY DECREASED STAGE V GFR <15 VERY LITTLE GFR LEFT ESRD GFR <15 ON STRIKE OUT MACHINE OPERATOR 8 THERAPUTIC HUMAN INR VALUES INDICATIONS NORMAL RANGES PROPHYLAXIS/TREATMENT OF: VENOUS THROMBOSIS 2.0-3.0 PULMONARY EMBOLISM 2.0-3.0 PREVENTION OF SYSTEMIC EMBOLISM FROM: TISSUE HEART VALVES 2.0-3.0 ACUTE MYOCARDIAL INFARCTION 2.0-3.0 VALVULAR HEART DISEASE 2.0-3.0 ATRIAL FIBRILLATION 2.0-3.0 MECHANICAL VALVES(HIGH RISK) 2.5-3.5 RECURRENT MYOCARDIAL INFARCTION 2.5-3.5 Procedures Date Code Description Status 01/31/2020 32902 Brief Emotional/Beha v Assessment W/ Scoring Doc Per Standard Inst Completed Medical Devices Description No Information Available Encounters Type Date Location Provider Dx Diagnosis Office Visit 01/31/2020 10:30a [facility] Charan Sprague M.D. I48.20 Chronic atrial fibrillation, unspecified Z79.01 senior living (current) use of a nticoagulants F32.89 Other [...] o stated Assessments Date Code Description Provider 03/25/2020 I10 Essential (primary) hypertension Zehra Sprague M.D. 03/25/2020 K21.9 Gastro-esophageal reflux disease without esophagitis Zehra Sprague M.D. 03/25/2020 F17.210 Nicotine dependence, cigarettes, uncomplicated Zehra Sprague M.D. 03/25/2020 J44.9 Chronic obstructive pulmonary di sease, unspecified Zehra Sprague M.D. 02/18/2020 Z51.81 Encounter for therapeutic drug l evel monitoring CAREY Schafer 02/18/2020 Z51.81 Encounter for therapeutic drug l evel monitoring Protime 02/18/2020 I48.20 Chronic atrial fibrillation, uns pecified CAREY Schafer 02/18/2020 I48.20 Chronic atrial fibrillation, uns pecified Protime 02/18/2020 Z79.01 manager intermediate (current) use of antic oagulants CAREY Schafer 02/18/2020 Z79.01 manager intermediate (current) use of antic oagulants Protime 02/14/2020 I48.20 Chronic atrial fibrillation, uns pecified Zehra Sprague M.D. 02/14/2020 I48.20 Chronic atrial fibrillation, uns pecified Lab Schedule 02/14/2020 I10 Essential (primary) hypertension Zehra Sprague M.D. 02/14/2020 I10 Essential (primary) hypertension Lab Schedule 02/14/2020 Z51.81 Encounter for therapeutic drug l evel monitoring Lauryn Gabriel, [facility] 02/14/2020 Z51.81 Encounter for therapeutic drug l evel monitoring Zehra Sprague M.D. 02/14/2020 Z51.81 Encounter for therapeutic drug l evel monitoring Protime 02/14/2020 I48.20 Chronic atrial fibrillation, uns pecified Lauryn Gabriel, [facility] 02/14/2020 I48.20 Chronic atrial fibrillation, uns pecified Zehra Sprague M.D. 02/14/2020 Z51.81 Encounter for therapeutic drug l evel monitoring Lab Schedule 02/14/2020 Z79.01 manager intermediate (current) use of antic oagulants Lauryn Gabriel, [facility] 02/14/2020 Z79.01 senior living (current) use of antic oagulants Zehra Sprague M.D. 02/14/2020 I48.20 Chronic atrial fibrillation, uns pecified Protime 02/14/2020 I48.20 Chronic atrial fibrillation, uns pecified Lab Schedule 02/14/2020 Z79.01 senior living (current) use of antic oagulants Lab Schedule 02/13/2020 I10 Essential (primary) hypertension Zehra Sprague M.D. 02/13/2020 K21.9 Gastro-esophageal reflux disease without esophagitis Zehra Sprague M.D. 02/13/2020 F17.210 Nicotine dependence, cigarettes, uncomplicated Zehra Sprague M.D. 02/13/2020 J44.9 Chronic obstructive pulmonary di sease, unspecified Zehra Sprague M.D. 02/05/2020 Z51.81 Encounter for therapeutic drug l evel monitoring Lauryn Gabriel, [facility] 02/05/2020 Z51.81 Encounter for therapeutic drug l evel monitoring Protime 02/05/2020 I48.20 Chronic atrial fibrillation, uns pecified Lauryn Gabriel, [facility] 02/05/2020 I48.20 Chronic atrial fibrillation, uns pecified Protime 02/05/2020 Z79.01 manager intermediate (current) use of antic oagulants Lauryn Gabriel, [facility] 02/05/2020 Z79.01 senior living (current) use of antic oagulants Protime 01/31/2020 Z51.81 Encounter for therapeutic drug l evel monitoring Lauryn Gabriel, [facility] 01/31/2020 I48.20 Chronic atrial fibrillation, uns pecified Zehra Sprague M.D. 01/31/2020 Z51.81 Encounter for therapeutic drug l evel monitoring Protime 01/31/2020 Z79.01 manager intermediate (current) use of antic oagulants Zehra Sprague M.D. 01/31/2020 I48.20 Chronic atrial fibrillation, uns pecified Lauryn Gabriel, [facility] 01/31/2020 F32.89 Other specified depressive episo ladraius Zehra Sprague M.D. 01/31/2020 I10 Essential (primary) hypertension Zehra Sprague M.D. 01/31/2020 Z79.01 senior living (current) use of antic oagulants Lauryn Gabriel, [facility] 01/31/2020 E05.90 Thyrotoxicosis, unspecified with out thyrotoxic crisis or sto Zehra pSrague M.D. 01/31/2020 I48.20 Chronic atrial fibrillation, uns pecified Protime 01/31/2020 K21.9 Gastro-esophageal reflux disease without esophagitis Zehra Sprague M.D. 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 01/31/2020 Z79.01 senior living (current) use of antic oagulants Protime 01/31/2020 [...] therapeutic drug l evel monitoring Lauryn Gabriel, [facility] 01/28/2020 Z51.81 Encounter for therapeutic drug l evel monitoring Protime 01/28/2020 I48.20 Chronic atrial fibrillation, uns pecified Lauryn Gabriel, [facility] 01/28/2020 I48.20 Chronic atrial fibrillation, uns pecified Protime 01/28/2020 Z79.01 senior living (current) use of antic oagulants Lauryn Gabriel, [facility] 01/28/2020 Z79.01 manager intermediate (current) use of antic oagulants Protime 01/25/2020 I10 Essential (primary) hypertension Zehra Sprague M.D. 01/25/2020 K21.9 Gastro-esophageal reflux disease without esophagitis Zehra Sprague M.D. 01/25/2020 F17.210 Nicotine dependence, cigarettes, uncomplicated Zehra Sprague M.D. 01/25/2020 J44.9 Chronic obstructive pulmonary di sease, unspecified Zehra Sprague M.D. 01/24/2020 Z79.01 senior living (current) use of antic oagulants Zehra Sprague M.D. 01/24/2020 Z79.01 manager intermediate (current) use of antic oagulants Lab Schedule 01/24/2020 I48.20 Chronic atrial fibrillation, uns pecsteff Sprague M.D. 01/24/2020 Z51.81 Encounter for therapeutic drug l evel monitoring Lauryn Gabriel, [facility] 01/24/2020 I48.20 Chronic atrial fibrillation, uns pecified Lab Schedule 01/24/2020 Z51.81 Encounter for therapeutic drug l evel monitoring Protime 01/24/2020 I48.20 Chronic atrial fibrillation, uns pecified Lauryn Gabriel [facility] 01/24/2020 I48.20 Chronic atrial fibrillation, uns pecified Protime 01/24/2020 Z79.01 manager intermediate (current) use of antic oagulants Lauryn [place], [employer] 01/24/2020 Z79.01 senior living (current) use of antic oagulants Protime 01/17/2020 Z51.81 Encounter for therapeutic drug l evel monitoring Lauryn [place], [employer] 01/17/2020 Z51.81 Encounter for therapeutic drug l evel monitoring Protime 01/17/2020 I48.20 Chronic atrial fibrillation, uns pecified Lauryn [place], [employer] 01/17/2020 I48.20 Chronic atrial fibrillation, uns pecified Protime 01/17/2020 Z79.01 senior living (current) use of antic oagulants Lauryn [place], [facility] 01/17/2020 Z79.01 senior living (current) use of antic oagulants Protime 01/17/2020 Z23 Encounter for immunization Zehra Sprague M.D. 01/17/2020 Z23 Encounter for immunization Proti me 12/14/2019 I48.20 Chronic atrial fibrillation, uns pecified Lauryn [place], [facility] 12/14/2019 I48.20 Chronic atrial fibrillation, uns pecified Protime 12/14/2019 Z79.01 manager intermediate (current) use of antic oagulants Lauryn [place], [facility] 12/14/2019 Z79.01 manager intermediate (current) use of antic oagulants Protime 12/14/2019 Z51.81 Encounter for therapeutic drug l evel monitoring Lauryn [place], [employer] 12/14/2019 Z51.81 Encounter for therapeutic drug l evel monitoring Protime 12/11/2019 I10 Essential (primary) hypertension Zehra Sprague M.D. 12/11/2019 F17.210 Nicotine dependence, cigarettes, uncomplicated Zehra Sprague M.D. 12/11/2019 E78.00 Pure hypercholesterolemia, unspe cified Zehra Sprague M.D. 12/11/2019 I48.20 Chronic atrial fibrillation, uns pecsteff Sprague M.D. 12/05/2019 I48.20 Chronic atrial fibrillation, uns pecified Lauryn Gabriel, [employer] 12/05/2019 I48.20 Chronic atrial fibrillation, uns pecified Protime 12/05/2019 Z79.01 senior living (current) use of antic oagulants Lauryn Gabriel, [employer] 12/05/2019 Z79.01 senior living (current) use of antic oagulants Protime 12/05/2019 Z51.81 Encounter for therapeutic drug l evel monitoring Lauryn Gabriel, [employer] 12/05/2019 Z51.81 Encounter for therapeutic drug l evel monitoring Protime 11/28/2019 I10 Essential (primary) hypertension Zehra Sprague M.D. 11/28/2019 F17.210 Nicotine dependence, cigarettes, uncomplicated Zehra Sprague M.D. 11/28/2019 E78.00 Pure hypercholesterolemia, unspe cified Zehra Sprague M.D. 11/28/2019 I48.20 Chronic atrial fibrillation, uns pecified Zehra Sprague M.D. Plan of Treatment 01/31/2020 - Zehra Sprague M.D.* I48.20 Chronic atrial fibrillation, unspecified * Z79.01 senior living (current) use of anticoagulants * F32.89 Other specified depressive episodes * I10 Essential (primary) hypertension * E05.90 Thyrotoxicosis, unspecified without thyrotoxic crisis or sto * K21.9 Gastro-esophageal reflux disease without esophagitis * I82.502 Chronic embolism and thrombosis of unspecified deep veins of left lower extremity * M19.90 Unspecified osteoarthritis, unspecified site * F17.210 Nicotine dependence, cigarettes, uncomplicated * J44.9 Chronic obstructive pulmonary disease, unspecified * R32 Unspecified urinary incontinence * G31.84 Mild cognitive impairment, so stated * All * Comments:* 13. Hyperlipidemia. Continues on Atorvastatin.14. Depression. Onset with loss of her , lack of support. 15. Health Maintenance. Medicare Wellness paperwork reviewed. She is current smoker, Check list reviewed. CAGE reviewed. PHQ9, Cognitive screen, [facility]. She has had the flu shot. She will update the tetanus with injury. I have encouraged her to get her second Shingrix shot. She has had a pneumonia shot in 2018. Will need a Booster 5 years out. Also consider Prevnar. She has never had a mammogram, bone density very remote. Both are ordered Functional Status Description No Information Available Mental Status Description No Information Available Referrals Refer to Reason for Referral Status Appt Date Sugar Negro MD CONSULT FOR URINARY INCONTINENCE Sent [facility] [address] [place], [place] [address] [phone] [facility] CONSULT FOR RT TRIGGER THUMB [address] [place] [address] [phone]
--- OUTSIDE RECORDS SUMMARY | 2020-05-26 11:19 | CCD | Continuity of Care Document ---
Author Author Glenna Sprague M.D. 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 Over Name Role Phone Darci Brush MD AUTM [phone] [facility] AUTM [phone] Douglas Ramírez MD AUTM Unavailable Problems Active [...] Consumes 3 glasses of wine per w [place] Tobacco Use Start: Unknown Patient is a [...] la Tablets 1 every day PO Vit [id number] MW=430 Glenna Guajardo FNP 01/18/2017 Calcium 600/Vitamin D3 [id number] Tablets 1 by mouth qd Glenna Guajardo [...] CPT Code Status Date Vaccine Lot # 39031 Given 01/17/2020 Influenza Vaccin e Quadrivalent Preser/Antibiotic Free Im Use [id number] 21065 Given 05/29/2019 Shingrix Zoster Vaccine (HZV), Recombinant, Subunit, Adjuvanted 37211 Given 01/18/2019 Influenza Vaccin e Quadrivalent Preser/Antibiotic Free Im Use [id number] 16144 Given 01/18/2018 Influenza Virus Vaccine, Quadrivalent (Cciiv4), Derived From 8 Given 04/22/2017 Pneumovax 23 [id number] 68196 Given 01/18/2017 Influenza Vaccin e Quadrivalent Preser/Antibiotic Free Im Use 081944 Vital Signs Date Vital Result Comment 05/05/2020 1:08pm BP Systolic 148 mmHg RT Arm BP Diastolic 70 mmHg RT Arm Heart Rate 60 /min Height 66 inches 5'6" Weight 221.00 lb BMI (Body Mass Index) 35.7 kg/m2 02/05/2020 11:19am Weight 226.00 lb Results Test Acquired Date Facility Test Result H/L Range Note Complete Blood Count 05/05/2020 [facility] Criminal Attorney: Dr Terrance [place]son [place] [id number] [phone] WBC 5.8 x10*3/UL 4.1 - 10.9 RBC [...] 2.0 - 7.8 Basic Metabolic Panel 05/05/2020 [facility] Criminal Attorney: [place] [address] [phone] Glucose 98 mg/dL 74 - 99 1 [...] Low >60 3 Laboratory test finding 05/05/2020 [facility], Criminal Attorney: [place] [address] [phone] Thyroid Stimulating Hormone 0.54 uIU/mL 0.3 6 - 3.74 Laboratory test finding 05/05/2020 [facility], Criminal Attorney: [place] [address] [phone] Vitamin D 25-Hydroxy 32.7 24.0 - 80.0 4 Laboratory test finding 05/05/2020 [facility] [address] [place] [address] [phone] PTH Intact 26.3 pg/mL Normal 18.5-88.0 Prothrombin Time/Inr 02/14/2020 [facility] [address] [place] [address] [phone] Prothrombin Time 58.4 seconds High 12.5-14.3 Inr 6.49 Critical high 5 Complete Blood Count 02/14/2020 [facility] Criminal Attorney: [place] [address] [phone] WBC 6.0 x10*3/UL 4.1 - 10.9 RBC [...] Wi-Inr Inr 7.9 Basic Metabolic Panel 02/14/2020 [facility] Criminal Attorney: [place] [address] [phone] Glucose 100 mg/dL High 74 - 99 [...] Wi-Inr Inr 3.7 Laboratory test finding 01/31/2020 [facility], Criminal Attorney: Dr Terrance Matson [place] [id number] [phone] T4 Free 1.33 ng/dL 0.76 - 1.46 Ua Dipstick Only 01/31/2020 [facility] , Criminal Attorney: Dr Terrance [place]son [place] [id number] [phone] Urine Color YELLOW Yellow Urine Appearance CLEAR Clear Urine PH 6.5 units 5.0 - 9.0 Urine Specific Banks 1.010 1.005 - 1.030 Urine Leukocytes NEGATIVE Negative Urine Blood NEGATIVE Negative Urine Protein TRACE Negative -Trace Urine Glucose NEGATIVE mg/dL Negative Urine Nitrite NEGATIVE Negative Urine Ketone NEGATIVE mg/dL Negative Urine Bilirubin NEGATIVE Negative Urine Urobilinogen 0.2 mg/dL 0.2 - 1.0 Laboratory test finding 01/31/2020 [facility] Criminal Attorney: Dr Terrance Matson [place] [id number] [phone] Thyroid Stimulating Hormone 0.16 uIU/mL Low 0.3 6 - 3.74 Basic Metabolic Panel 01/31/2020 [facility], Criminal Attorney: Dr Terrance Matson [place] [id number] [phone] Glucose 101 mg/dL High 74 - 99 [...] mL/min >60 11 Laboratory test finding 01/31/2020 [facility] Criminal Attorney: Dr Terrance Matson [place] [id number] [phone] Magnesium 2.1 mg/dL 1.8 - 2.4 Complete Blood Count 01/31/2020 [facility] Criminal Attorney: [place] [address] [phone] WBC 6.2 x10*3/UL 4.1 - 10.9 RBC [...] 2.0 - 7.8 Laboratory test finding 01/31/2020 [facility] [address] [place] [address] [phone] Digoxin Level 0.6 NG/ML Normal 0.5-2.0 Laboratory test finding 01/31/2020 [facility] 2.7 Laboratory test finding 01/28/2020 [facility] 1.2 Laboratory test finding 01/24/2020 [facility] 7.2 Complete Blood Count 01/24/2020 [facility] Criminal Attorney: [place] [address] [phone] WBC 6.6 x10*3/UL 4.1 - 10.9 RBC [...] x10*3/UL 2.0 - 7.8 Prothrombin Time/Inr 01/24/2020 [facility] [address] [place] [address] [phone] Prothrombin Time 49.4 seconds High 12.5-14.3 Inr [...] LITTLE GFR LEFT ESRD GFR <15 ON TELECOMMUNICATIONS PROJECT MANAGER 4 [facility] [employer] Vitamin D immunoassay kit. Values obtained with [...] LITTLE GFR LEFT ESRD GFR <15 ON TELECOMMUNICATIONS PROJECT MANAGER 9 100-125 mg/dL PRE-DIABET ES/FASTING >126 mg/dL DIABETES/FASTING 10 NOTE: RESULT VERIFIED. 11 CHRONIC KIDNEY DISEASE STAGI NG PER NKF STAGE I & II GFR >= 60 NORMAL TO MILDLY DECREASED STAGE III GFR 30-59 MODERATELY DECREASED STAGE IV GFR 15-29 SEVERELY DECREASED STAGE V GFR <15 VERY LITTLE GFR LEFT ESRD GFR <15 ON TELECOMMUNICATIONS PROJECT MANAGER 12 THERAPUTIC HUMAN INR VALUES INDICATIONS NORMAL RANGES PROPHYLAXIS/TREATMENT OF: VENOUS THROMBOSIS 2.0-3.0 PULMONARY EMBOLISM 2.0-3.0 PREVENTION OF SYSTEMIC EMBOLISM FROM: TISSUE HEART VALVES 2.0-3.0 ACUTE MYOCARDIAL INFARCTION 2.0-3.0 VALVULAR HEART DISEASE 2.0-3.0 ATRIAL FIBRILLATION 2.0-3.0 MECHANICAL VALVES(HIGH RISK) 2.5-3.5 RECURRENT MYOCARDIAL INFARCTION 2.5-3.5 Procedures Date Code Description Status 01/31/2020 06959 Brief Emotional/Beha v Assessment W/ Scoring Doc Per Standard Inst Completed Medical Devices Description No Information Available Encounters Type Date Location Provider Dx Diagnosis Office Visit 05/05/2020 1:00p [facility] M.[facility] 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 I48.20 Chronic atrial fibrillation, unspecified Z79.01 jail (current) use of a nticoagulants F32.89 Other [...] uns pecified Zehra Sprague M.D. 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.01 jail (current) use of antic oagulants Zehra Sprague [...] for therapeutic drug l evel monitoring Lauryn Gabrile [facility] 02/18/2020 Z51.81 Encounter for therapeutic drug l evel monitoring Protime 02/18/2020 I48.20 Chronic atrial fibrillation, uns pecified Lauryn Gabriel, [facility] 02/18/2020 I48.20 Chronic atrial fibrillation, uns pecified Protime 02/18/2020 Z79.01 jail (current) use of antic oagulants Lauryn Gabriel, [facility] 02/18/2020 Z79.01 jail (current) use of antic oagulants Protime 02/14/2020 I48.20 Chronic atrial fibrillation, uns pecified Zehra Sprague M.D. 02/14/2020 I48.20 Chronic atrial fibrillation, uns pecified Lab Schedule 02/14/2020 I10 Essential (primary) hypertension Zehra Sprague M.D. 02/14/2020 I10 Essential (primary) hypertension Lab Schedule 02/14/2020 Z51.81 Encounter for therapeutic drug l evel monitoring Lauryn Gabriel [facility] 02/14/2020 Z51.81 Encounter for therapeutic drug l evel monitoring Zehra Sprague M.D. 02/14/2020 Z51.81 Encounter for therapeutic drug l evel monitoring Protime 02/14/2020 I48.20 Chronic atrial fibrillation, uns pecified Lauryn Gabriel, [facility] 02/14/2020 I48.20 Chronic atrial fibrillation, uns pecsteff Sprague M.D. 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 02/13/2020 K21.9 Gastro-esophageal reflux disease without esophagitis Zehra Sprague M.D. 02/13/2020 F17.210 Nicotine dependence, cigarettes, uncomplicated Zehra Sprague M.D. 02/13/2020 J44.9 Chronic obstructive pulmonary di sease, unspecified Zehra Sprague M.D. 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 01/31/2020 Z51.81 Encounter for therapeutic drug l evel monitoring Protime 01/31/2020 Z79.01 jail (current) use of antic oagulants Zehra Sprague M.D. 01/31/2020 I48.20 Chronic atrial fibrillation, uns pecified Lauryn Gabriel, [facility] 01/31/2020 F32.89 Other specified depressive episo ladarius Zehra Sprague M.D. 01/31/2020 I10 Essential (primary) hypertension Zehra Sprague M.D. 01/31/2020 Z79.01 jail (current) use of antic oagulants MACEY SchaferP 01/31/2020 E05.90 Thyrotoxicosis, unspecified with out thyrotoxic crisis or sto Zehra Sprague M.D. 01/31/2020 I48.20 Chronic atrial fibrillation, uns pecified Protime 01/31/2020 K21.9 Gastro-esophageal reflux disease without esophagitis Zehra Sprague M.D. 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 01/25/2020 K21.9 Gastro-esophageal reflux disease without esophagitis Zehra Sprague M.D. 01/25/2020 F17.210 Nicotine dependence, cigarettes, uncomplicated Zehra Sprague M.D. 01/25/2020 J44.9 Chronic obstructive pulmonary di sease, unspecified Zehra Sprague M.D. 01/24/2020 Z79.01 jail (current) use of antic oagulants Zehra Sprague M.D. 01/24/2020 Z79.01 jail (current) use of antic oagulants Lab Schedule 01/24/2020 I48.20 Chronic atrial fibrillation, uns pecified Zehra Sprague M.D. 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 12/11/2019 F17.210 Nicotine dependence, cigarettes, uncomplicated Zehra Sprague M.D. 12/11/2019 E78.00 Pure hypercholesterolemia, unspe cified Zehra Sprague M.D. 12/11/2019 I48.20 Chronic atrial fibrillation, uns pecsteff Sprague M.D. 12/05/2019 I48.20 Chronic atrial fibrillation, uns pecified Lauryn Gabriel, [facility] 12/05/2019 I48.20 Chronic atrial fibrillation, uns pecified Protime 12/05/2019 Z79.01 jail (current) use of antic oagulants Lauryn Gabriel, [facility] 12/05/2019 Z79.01 jail (current) use of antic oagulants Protime 12/05/2019 Z51.81 Encounter for therapeutic drug l evel monitoring Lauryn Gabriel, [facility] 12/05/2019 Z51.81 Encounter for therapeutic drug l evel monitoring Protime 11/28/2019 I10 Essential (primary) hypertension Zehra Sprague M.D. 11/28/2019 F17.210 Nicotine dependence, cigarettes, uncomplicated Zehra Sprague M.D. 11/28/2019 E78.00 Pure hypercholesterolemia, unspe cified Zehra Sprague M.D. 11/28/2019 I48.20 Chronic atrial fibrillation, uns pecsteff Sprague M.D. Plan of Treatment Future Appointment(s):* 06/17/2020 2:30 pm - Zehra Sprague M.D. at [facility] 05/05/2020 - Zehra Sprague M.D.* I48.20 Chronic atrial fibrillation, unspecified * Z79.01 jail (current) use of anticoagulants * I10 Essential [...] 13. Depression. [facility] I have also placed [...] order which she believes she has through [facility]. She will contact us with that phone number. Functional Status Description No Information Available Mental Status Description No Information Available Referrals Refer to Dr Reason for Referral Status Appt Date [facility] CONSULT FOR BILAT KNEE PAIN A ND TRIGGER FINGERS Created [address] [place] [address] [phone] Sugar Negro MD CONSULT FOR URINARY INCONTINENCE Sent [place] [address] [place] [address] [phone] [facility] CONSULT FOR RT TRIGGER THUMB Sen t [address] [place] [address] [phone]
--- OUTSIDE RECORDS SUMMARY | 2020-05-26 11:22 | CCD ---
Author Author [facility] Organization [facility] Address Unknown Phone Unavailable Care Team Providers Care Marketing Content Specialist Name Role Phone Shirin, Chinyere KISS MIXER Unavailable Unavailable Shirin, Chinyere KISS MIXER Unavailable Unavailable Shirin, Chinyere KISS MIXER Unavailable Unavailable Shirin, Chinyere KISS MIXER Unavailable Unavailable Shirin, Chinyere KISS MIXER Unavailable Unavailable Shirin, Chinyere KISS MIXER Unavailable Unavailable Shirin, Chinyere KISS MIXER Unavailable Unavailable Shirin, Chinyere KISS MIXER Unavailable Unavailable Shirin, Chinyere KISS MIXER Unavailable Unavailable Shirin, Chinyere KISS MIXER Unavailable Unavailable Shirin, Chinyere KISS MIXER Unavailable Unavailable Shirin, Chinyere KISS MIXER Unavailable Unavailable Shirin, Chinyere KISS MIXER Unavailable Unavailable Shirin, Chinyere KISS MIXER Unavailable Unavailable Shirin, Chinyere KISS MIXER Unavailable Unavailable Shirin, Chinyere KISS MIXER Unavailable Unavailable Shirin, Chinyere KISS MIXER Unavailable Unavailable Shirin, Chinyere KISS MIXER Unavailable Unavailable Shirin, Chinyere KISS MIXER Unavailable Unavailable Shirin, Chinyere KISS MIXER Unavailable Unavailable Shirin, Chinyere KISS MIXER Unavailable Unavailable Shirin, Chinyere KISS MIXER Unavailable Unavailable Shirin, Chinyere KISS MIXER Unavailable Unavailable Shirin, Chinyere KISS MIXER Unavailable Unavailable Shirin, Chinyere KISS MIXER Unavailable Unavailable Shirin, Chinyere KISS MIXER Unavailable Unavailable Shirin, Chinyere KISS MIXER Unavailable Unavailable David Sprague MD Unavailable Unavailable aDvid Sprague MD Unavailable Unavailable David Sprague MD Unavailable Unavailable David Sprague MD Unavailable Unavailable David Sprague MD Unavailable Unavailable DarcieDavid MD Unavailable Unavailable DarcieDavid carpio MD Unavailable Unavailable DarcieDavid MD Unavailable Unavailable DarcieDavid MD Unavailable Unavailable DarcieDavid MD Unavailable Unavailable DarcieDavid MD Unavailable Unavailable DarcieDavid MD Unavailable Unavailable DarcieDavid MD Unavailable Unavailable DarcieDavid MD Unavailable Unavailable DarcieDavid buitrago MD Unavailable Unavailable DarcieDavid MD Unavailable Unavailable DarcieDavid MD Unavailable Unavailable DarcieDavid MD Unavailable Unavailable DarcieDavid carpio MD Unavailable Unavailable DarcieDavid MD Unavailable Unavailable DarcieDavid MD Unavailable Unavailable DarcieDavid MD Unavailable Unavailable DarcieDavid buitrago MD Unavailable Unavailable DarcieDavid MD Unavailable Unavailable David Sprague MD Unavailable Unavailable DarcieDavid carpio MD Unavailable Unavailable David Sprague MD Unavailable Unavailable David Sprague MD Unavailable Unavailable David Sprague MD Unavailable Unavailable David Sprague MD Unavailable Unavailable David Sprague MD Unavailable Unavailable David Sprague MD Unavailable Unavailable David Sprague MD Unavailable Unavailable David Sprague MD Unavailable Unavailable David Sprague MD Unavailable Unavailable David Sprague MD Unavailable Unavailable David Sprague MD Unavailable Unavailable David Sprague MD Unavailable Unavailable David Sprague MD Unavailable Unavailable David Sprague MD Unavailable Unavailable David Sprague MD Unavailable Unavailable David Sprague MD Unavailable Unavailable David Sprague MD Unavailable Unavailable David Sprague MD Unavailable Unavailable David Sprague MD Unavailable Unavailable David Sprague MD Unavailable Unavailable David Sprague MD Unavailable Unavailable David Sprague MD Unavailable Unavailable David Sprague MD Unavailable Unavailable David Sprague MD Unavailable Unavailable David Sprague MD Unavailable Unavailable David Sprague MD Unavailable Unavailable David Sprague MD Unavailable Unavailable David Sprague MD Unavailable Unavailable David Sprague MD Unavailable Unavailable Darcie, M Zehra MD Unavailable Unavailable David Sprague MD Unavailable Unavailable David Sprague MD Unavailable Unavailable David Sprague MD Unavailable Unavailable David Sprague MD Unavailable Unavailable David Sprague MD Unavailable Unavailable David Sprague MD Unavailable Unavailable David Sprague MD Unavailable Unavailable David Sprague MD Unavailable Unavailable David Sprague MD Unavailable Unavailable David Sprague MD Unavailable Unavailable David Sprague MD Unavailable Unavailable David Sprague MD Unavailable Unavailable David Sprague MD Unavailable Unavailable David Sprague MD Unavailable Unavailable David Sprague MD Unavailable Unavailable David Sprague MD Unavailable Unavailable David Sprague MD Unavailable Unavailable David Sprague MD Unavailable Unavailable David Sprague MD Unavailable Unavailable David Sprague MD Unavailable Unavailable David Sprague MD Unavailable Unavailable David Sprague MD Unavailable Unavailable Mitesh, L Crys PA Unavailable Unavailable Mitesh, L Crys PA Unavailable Unavailable Mitesh, L Crys PA Unavailable Unavailable Mitesh, L Crys PA Unavailable Unavailable Mitesh, L Crys PA Unavailable Unavailable Mitesh, L Crys PA Unavailable Unavailable Mitesh, L Crys PA Unavailable Unavailable Mitesh, L Crys PA Unavailable Unavailable Mitesh, L Crys PA Unavailable Unavailable Mitesh, L Crys PA Unavailable Unavailable Mitesh, L Crys PA Unavailable Unavailable Mitesh, L Crys PA Unavailable Unavailable Mitesh, L Crys PA Unavailable Unavailable Mitesh, L Crys PA Unavailable Unavailable Mitesh, L Crys PA Unavailable Unavailable Mitesh, L Crys PA Unavailable Unavailable Mitesh, L Crys PA Unavailable Unavailable Mitesh, L Crys PA Unavailable Unavailable Mitesh, L Crys PA Unavailable Unavailable Mitesh, L Crys PA Unavailable Unavailable Mitesh, L Crys PA Unavailable Unavailable Mitesh, L Crys PA Unavailable Unavailable Mitesh, L Crys PA Unavailable Unavailable Nickie Mcginnis MD Unavailable Unavailable Nickie Mcginnis MD Unavailable Unavailable Nickie Mcginnis MD Unavailable Unavailable Nickie Mcginnis MD Unavailable Unavailable Nickie Mcginnis MD Unavailable Unavailable Nickie Mcginnis MD Unavailable Unavailable Nickie Mcginnis MD Unavailable Unavailable Nickie Mcginnis MD Unavailable Unavailable Nickie Mcginnis MD Unavailable Unavailable Nickie Mcginnis MD Unavailable Unavailable Nickie Mcginnis MD Unavailable Unavailable Fish, B Jean Carlos GUIDRY Unavailable Unavailable Fish, B Jean Carlos GUIDRY Unavailable Unavailable Fish, B Jean Carlos GUIDRY Unavailable Unavailable Fish, B Jean Carlos GUIDRY Unavailable Unavailable Fish, B Jean Carlos GUIDRY Unavailable Unavailable Fish, B Jean Carlos GUIDRY Unavailable Unavailable Fish, B Jean Carlos GUIDRY Unavailable Unavailable Fish, B Jean Carlos GUIDRY Unavailable Unavailable Fish, B Jean Carlos GUIDRY Unavailable Unavailable Fish, B Jean Carlos GUIDRY Unavailable Unavailable Fish, B Jean Carlos GUIDRY Unavailable Unavailable Fish, B Jean Carlos GUIDRY Unavailable Unavailable Fish, B Jean Carlos GUIDRY Unavailable Unavailable Fish, B Jean Carlos GUIDRY Unavailable Unavailable Fish, B Jean Carlos GUIDRY Unavailable Unavailable Fish, B Jean Carlos GUIDRY Unavailable Unavailable Fish, B Jean Carlos GUIDRY Unavailable Unavailable Fish, B Jean Carlos GUIDRY Unavailable Unavailable Fish, B Jean Carlos GUIDRY Unavailable Unavailable Fish, B Jean Carlos GUIDRY Unavailable Unavailable Fish, B Jean Carlos GUIDRY Unavailable Unavailable Fish, B Jean Carlos GUIDRY Unavailable Unavailable Fish, B Jean Carlos GUIDRY Unavailable Unavailable Fish, B Jean Carlos GUIDRY Unavailable Unavailable Fish, B Jean Carlos GUIDRY Unavailable Unavailable Fish, B Jean Carlos GUIDRY Unavailable Unavailable Fish, B Jean Carlos GUIDRY Unavailable Unavailable Fish, B Jean Carlos GUIDRY Unavailable Unavailable Fish, B Jean Carlos GUIDRY Unavailable Unavailable Fish, B Jean Carlos GUIDRY Unavailable Unavailable Fish, B Jean Carlos GUIDRY Unavailable Unavailable Fish, B Jean Carlos GUIDRY Unavailable Unavailable Fish, B Jean Carlos GUIDRY Unavailable Unavailable Fish, B Jean Carlos GUIDRY Unavailable Unavailable Fish, B Jean Carlos GUIDRY Unavailable Unavailable Fish, B Jean Carlos GUIDRY Unavailable Unavailable Fish, B Jean Carlos GUIDRY Unavailable Unavailable Fish, B Jean Carlos GUIDRY Unavailable Unavailable Fish, B Jean Carlos GUIDRY Unavailable Unavailable Fish, B Jean Carlos GUIDRY Unavailable Unavailable Fish, B Jean Carlos GUIDRY Unavailable Unavailable Fish, B Jean Carlos GUIDRY Unavailable Unavailable Dania LUTHER MD Unavailable Unavailable Dania LUTHER MD Unavailable Unavailable Dania LUTHER MD Unavailable Unavailable Dania LUTHER MD Unavailable Unavailable Dania LUTHER MD Unavailable Unavailable Dania LUTHER MD Unavailable Unavailable Dania LUTHER MD Unavailable Unavailable Dania LUTHER MD Unavailable Unavailable Dania LUTHER MD Unavailable Unavailable Dania LUTHER MD Unavailable Unavailable Dania LUTHER MD Unavailable Unavailable Dania LUTHER MD Unavailable Unavailable Dania LUTHER MD Unavailable Unavailable Dania LUTHER MD Unavailable Unavailable Dania LUTHER MD Unavailable Unavailable Dania LUTHER MD Unavailable Unavailable Dania LUTHER MD Unavailable Unavailable Dania LUTHER MD Unavailable Unavailable Dania LUTHER MD Unavailable Unavailable Dania LUTHER MD Unavailable Unavailable LUTHERDania Diaz MD Unavailable Unavailable Dania LUTHER MD Unavailable Unavailable LUTHERDania Diaz MD Unavailable Unavailable LUTHERDania Diaz MD Unavailable Unavailable LUTHERDania Diaz MD Unavailable Unavailable LUTHERDania Diaz MD Unavailable Unavailable LUTHERDania Diaz MD Unavailable Unavailable LUTHERDania Diaz MD Unavailable Unavailable LUTHERDania MD Unavailable Unavailable Dania LUTHER MD Unavailable Unavailable LUTHERDania Diaz MD Unavailable Unavailable LUTHERDania Diaz MD Unavailable Unavailable LUTHERDania Diaz MD Unavailable Unavailable LUTHERDania Diaz MD Unavailable Unavailable LUTHERDania Diaz MD Unavailable Unavailable LUTHERDania Diaz MD Unavailable Unavailable LUTHERDania Diaz MD Unavailable Unavailable LUTHERDania Diaz MD Unavailable Unavailable LUTHERDania Diaz MD Unavailable Unavailable LUTHERDania Diaz MD Unavailable Unavailable LUTHERDania Diaz MD Unavailable Unavailable LUTHERDania Diaz MD Unavailable Unavailable LUTHERDania Diaz MD Unavailable Unavailable LUTHERDania Diaz MD Unavailable Unavailable Dania LUTHER MD Unavailable Unavailable LUTHERDania Diaz MD Unavailable Unavailable LUTHERDania Diaz MD Unavailable Unavailable LUTHERDania Diaz MD Unavailable Unavailable LUTHERDania Diaz MD Unavailable Unavailable Dania LUTHER MD Unavailable Unavailable LUTHERDania Diaz MD Unavailable Unavailable Dania LUTHER MD Unavailable Unavailable Dania LUTHER MD Unavailable Unavailable LUTHERDania Diaz MD Unavailable Unavailable LUTHERDania Diaz MD Unavailable Unavailable LUTHERDania Diaz MD Unavailable Unavailable LUTHERDania Diaz MD Unavailable Unavailable Bennett, Glenna KISS MIXER Unavailable Unavailable Bennett, Glenna KISS MIXER Unavailable Unavailable Bennett, Glenna KISS MIXER Unavailable Unavailable Bennett, Glenna KISS MIXER Unavailable Unavailable Bennett, Glenna KISS MIXER Unavailable Unavailable Bennett, Glenna KISS MIXER Unavailable Unavailable Bennett, Glenna KISS MIXER Unavailable Unavailable Bennett, Glenna KISS MIXER Unavailable Unavailable Bennett, Glenna KISS MIXER Unavailable Unavailable Bennett, Glenna KISS MIXER Unavailable Unavailable Bennett, Glenna KISS MIXER Unavailable Unavailable Bennett, Glenna KISS MIXER Unavailable Unavailable Bennett, Glenna KISS MIXER Unavailable Unavailable Bennett, Glenna KISS MIXER Unavailable Unavailable Bennett, Glenna KISS MIXER Unavailable Unavailable Bennett, Glenna KISS MIXER Unavailable Unavailable Bennett, Glenna KISS MIXER Unavailable Unavailable Bnenett, Glenna KISS MIXER Unavailable Unavailable Bennett, Glenna KISS MIXER Unavailable Unavailable Bennett, Glenna KISS MIXER Unavailable Unavailable Bennett, Glenna KISS MIXER Unavailable Unavailable Bennett, Glenna KISS MIXER Unavailable Unavailable Bennett, Glenna KISS MIXER Unavailable Unavailable Bennett, Glenna KISS MIXER Unavailable Unavailable Bennett, Glenna KISS MIXER Unavailable Unavailable Bennett, Glenna KISS MIXER Unavailable Unavailable Bennett, Glenna KISS MIXER Unavailable Unavailable Bennett, Glenna KISS MIXER Unavailable Unavailable Bennett, Glenna KISS MIXER Unavailable Unavailable Bennett, Glenna KISS MIXER Unavailable Unavailable Bennett, Glenna KISS MIXER Unavailable Unavailable Bennett, Glenna KISS MIXER Unavailable Unavailable Bennett, Glenna KISS MIXER Unavailable Unavailable Bennett, Glenna KISS MIXER Unavailable Unavailable Bennett, Glenna KISS MIXER Unavailable Unavailable Bennett, Glenna KISS MIXER Unavailable Unavailable Bennett, Glenna KISS MIXER Unavailable Unavailable Bennett, Glenna KISS MIXER Unavailable Unavailable Bennett, Glenna KISS MIXER Unavailable Unavailable Bennett, Glenna KISS MIXER Unavailable Unavailable Bennett, Glenna KISS MIXER Unavailable Unavailable Bennett, Glenna KISS MIXER Unavailable Unavailable Bennett, Glenna KISS MIXER Unavailable Unavailable Bennett, Glenna KISS MIXER Unavailable Unavailable Bennett, Glenna KISS MIXER Unavailable Unavailable Bennett, Glenna KISS MIXER Unavailable Unavailable Bennett, Glenna KISS MIXER Unavailable Unavailable Bennett, Glenna KISS MIXER Unavailable Unavailable Bennett, Glenna KISS MIXER Unavailable Unavailable Bennett, Glenna KISS MIXER Unavailable Unavailable Bennett, Glenna KISS MIXER Unavailable Unavailable Bennett, Glenna KISS MIXER Unavailable Unavailable Bennett, Glenna KISS MIXER Unavailable Unavailable Re-disclosure Warning The records that you are about to access may contain information from federally-assisted alcohol or drug abuse programs. If such information is present, then the following federally mandated warning applies: This information has been disclosed to you from records protected by federal confidentiality rules (42 CFR part 2). The federal rules prohibit you from making any further disclosure of this information unless further disclosure is expressly permitted by the written consent of the person to whom it pertains or as otherwise permitted by 42 CFR part 2. A general authorization for the release of medical or other information is NOT sufficient for this purpose. The Federal rules restrict any use of the information to criminally investigate or prosecute any alcohol or drug abuse patient.The records that you are about to access may contain highly sensitive health information, the redisclosure of which is protected by Article 27-F of the [facility] Public Health law. If you continue you may have access to information: Regarding HIV / AIDS; Provided by facilities licensed or operated by the [facility] Office of Mental Health; or Provided by the [facility] Office for People With Developmental Disabilities. If such information is present, then the following [facility] mandated warning applies: This information has been disclosed to you from confidential records which are protected by state law. State law prohibits you from making any further disclosure of this information without the specific written consent of the person to whom it pertains, or as otherwise permitted by law. Any unauthorized further disclosure in violation of state law may result in a fine or chcf sentence or both. A general authorization for the release of medical or other information is NOT sufficient authorization for further disc losure. Family History Family Member Name Family Member Gender Family Member Status Date o f Status Description Data Source(s) Unknown Male Problem [facility] ([facility] ) Unknown Male Problem [facility] ([facility]) Encounters Encounter Providers Location Date Indications Data Source(s ) Outpatient Attender: Zehra French 12:00:00 PM EST [facility] ([facility] ) Outpatient Attender: Zehra French 10:30:00 AM EDT [facility] ([facility] ) Outpatient Attender: Chinyere French 10:00:00 AM EDT [facility] ([facility] ) Outpatient Attender: Crys NGUYEN Main Office 09/06/2019 12:45:0 0 PM EDT [facility] ([facility]) Outpatient Attender: Zehra French 11:00:00 AM EDT [facility] ([facility] ) Outpatient Attender: Jean Carlos Mcginnis MD Physical Therapy 08/06/2019 0 4:00:00 PM EDT [facility] ([facility]) Outpatient Attender: Zehra French 02:30:00 PM EDT [facility] ([facility] ) Outpatient Attender: Zehra Cooperall 09:00:00 AM EDT [facility] ([facility] ) Outpatient Attender: DESI LUTHER MD Main Office 06/11/2019 12:45:00 PM EDT [facility] ([facility]) Outpatient Attender: Glenna Guajardo KISS MIXER Huyen French 0 04/24/2019 09:30:00 AM EST [facility] ([facility] ) Immunizations Vaccine Date Status Description Data Source(s) Influenza, injectable, MDCK, preservative free, mima valent 01/17/2020 12:10:00 PM EDT completed [facility] Shingrix Zoster Vaccine (HZV), Recombinant, Subunit, A djuvanted 05/29/2019 12:55:00 PM EST completed [facility] ([facility]) VARICELLA-ZOSTER VIRUS GLYCOPROTEIN E,REC/[id number] ADJUVA NT/PF 05/29/2019 12:00:00 AM EST completed [facility] Medications Medication Brand Name Start Date Product Form Dose Route Admi nistrative Instructions Pharmacy Instructions Status Indications Reaction Description Data Source(s) 24 HR Bupropion Hydrochloride 150 MG Extended Release Oral T ablet BUPROPION HCL 05/06/2020 12:00:00 AM EST tablet extended release 24 hr 30 TAKE ONE TABLET BY MOUTH EVERY MORNING TAKE ONE TABLET BY MOUTH EVERY MORNING SOLD: 05/07/2020 [facility] 5 mg 05/06/2020 12:00:00 AM EST tablet 60 TAKE ONE TABLET BY MOUTH TWICE A DAY TAKE ONE TABLET BY MOUTH TWICE A DAY SOLD: 05/07/2020 [facility] 24 HR Bupropion Hydrochloride 150 MG Extended Release Oral Tablet Bupropion Hydrochloride ER (XL) 05/05/2020 12:00:00 AM EST ORAL a ctive [facility] ([facility]) 5 mg 03/15/2020 12:00:00 AM EST tablet 30 TAKE ONE TABLET BY MOUTH TWICE A DAY TAKE ONE TABLET BY MOUTH TWICE A DAY SOLD: 03/17/2020 [facility] 5 mg 03/15/2020 12:00:00 AM EST tablet 30 TAKE ONE TABLET BY MOUTH TWICE A DAY TAKE ONE TABLET BY MOUTH TWICE A DAY SOLD: 04/17/2020 [facility] Cephalexin 500 MG Oral Capsule CEPHALEXIN 03/14/2020 12:00:00 AM EST capsule 30 TAKE ONE CAPSULE BY MOUTH THREE TIMES A DAY TAKE ONE C APSULE BY MOUTH THREE TIMES A DAY SOLD: 03/17/2020 [facility] apixaban 5 MG Oral Tablet [Eliquis] Eliquis 02/18/2020 12:00:[address] ORAL active [facility] ([facility]) Administration Of Flu Vaccine 01/17/2020 12:00:00 AM EDT completed [facility]) Medication administered onsite 20 mg 11/07/2019 12:00:00 AM EDT tablet 90 TAKE ONE TABLET BY MOUTH EVERY MORNING TAKE ONE TABLET BY MOUTH EVERY MORNING SOLD: 04/17/2020 [facility] 5 mg 11/07/2019 12:00:00 AM EDT tablet 30 TAKE ONE-HALF TABLET BY MOUTH EVERY DAY TAKE ONE-HALF TABLET BY MOUTH EVERY DAY SOLD: 11/10/2019 [facility] 20 mg 11/07/2019 12:00:00 AM EDT tablet 90 TAKE ONE TABLET BY MOUTH EVERY MORNING TAKE ONE TABLET BY MOUTH EVERY MORNING SOLD: 11/10/2019 [facility] 5 mg 10/10/2019 12:00:00 AM EDT tablet 30 TAKE 1/2 TABLET BY MOUTH ONCE DAILY TAKE 1/2 TABLET BY MOUTH ONCE DAILY SOLD: 10/11/2019 [facility] 5 mg 10/10/2019 12:00:00 AM EDT tablet 30 TAKE 1/2 TABLET BY MOUTH ONCE DAILY TAKE 1/2 TABLET BY MOUTH ONCE DAILY SOLD: 01/26/2020 [facility] 100 mg 10/08/2019 12:00:00 AM EDT capsule 28 TAKE ONE CAPSULE BY MOUTH TWICE A DAY FOR 14 DAYS TAKE ONE CAPSULE BY MOUTH TWICE A DAY FOR 14 DAYS SOLD : 10/09/2019 [facility] 40 mg 09/18/2019 12:00:00 AM EDT tablet 30 TAKE ONE TABLET BY MOUTH AT BEDTIME TAKE ONE TABLET BY MOUTH AT BEDTIME SOLD: 01/26/2020 [facility] 40 mg 09/18/2019 12:00:00 AM EDT tablet 30 TAKE ONE TABLET BY MOUTH AT BEDTIME TAKE ONE TABLET BY MOUTH AT BEDTIME SOLD: 04/17/2020 [facility] 40 mg 09/18/2019 12:00:00 AM EDT tablet 30 TAKE ONE TABLET BY MOUTH AT BEDTIME TAKE ONE TABLET BY MOUTH AT BEDTIME SOLD: 09/19/2019 [facility] 20 mg 08/31/2019 12:00:00 AM EDT tablet 30 TAKE ONE TABLET BY MOUTH EVERY MORNING TAKE ONE TABLET BY MOUTH EVERY MORNING SOLD: 09/01/2019 [facility] Furosemide 20 MG Oral Tablet Furosemide 08/31/2019 12:00:00 AM EDT ORAL active [facility] ([facility]) 20 mg 07/24/2019 12:00:00 AM EDT tablet 60 TAKE TWO TABLETS BY MOUTH AT BEDTIME TAKE TWO TABLETS BY MOUTH AT BEDTIME SOLD: 07/26/2019 [facility] Digoxin 0.25 MG Oral Tablet 250 mcg (0.25 mg) DIGOXIN 07/05/2019 12:00:00 AM EDT tablet 90 TAKE ONE TABLET BY MOUTH JOAN DAY TAKE ONE TABLET BY MOUTH EVERY DAY SOLD: 04/17/2020 [facility] 250 mcg (0.25 mg) 07/05/2019 12:00:00 AM EDT tablet 90 TAKE ONE TABLET BY MOUTH EVERY DAY TAKE ONE TABLET BY MOUTH EVERY DAY SOLD: 07/05/2019 [facility] Digoxin 0.25 MG Oral Tablet 250 mcg (0.25 mg) DIGOXIN 07/05/2019 12:00:00 AM EDT tablet 90 TAKE ONE TABLET BY MOUTH JOAN DAY TAKE ONE TABLET BY MOUTH EVERY DAY SOLD: 11/20/2019 [facility] Methimazole 5 MG Oral Tablet Methimazole 07/02/2019 12:00:00 AM EDT ORAL completed [facility] ([facility]) 5 mg 07/02/2019 12:00:00 AM EDT tablet 40 TAKE 1 TABLET BY MOUTH DAILY EXCEPT TUESDAY, TUESDAY & TUESDAY TAKE 2 TABLETS TAKE 1 TABLET BY MOUTH DAILY EXCEPT TUESDAY, TUESDAY & TUESDAY TAKE 2 TABLETS SOLD: 07/04/2019 [facility] Methimazole 5 MG Oral Tablet Methimazole 07/02/2019 12:00:00 AM EDT ORAL active [facility] Hydrochlorothiazide 25 MG Oral Tablet Hydrochlorothiazide 12:00:00 AM EDT ORAL completed [facility] ([facility]) 25 mg 07/02/2019 12:00:00 AM EDT tablet 30 TAKE ONE TABLET BY MOUTH EVERY DAY TAKE ONE TABLET BY MOUTH EVERY DAY SOLD: 07/04/2019 [facility] Shingrix Shingrix 05/23/2019 12:00:00 AM EST activ e [facility] ([facility]) Digoxin 0.25 MG Oral Tablet [Digox] Digox 04/29/2019 12:00:00 AM EST ORAL active [facility] 5 mg 04/26/2019 12:00:00 AM EST tablet 23 TAKE ONE TABLET BY MOUTH EVERY DAY EXCEPT 1/2 TABLET ON TUESDAY, TUESDAY, TUESDAY AND TUESDAY TAKE ONE TABLET BY MOUTH EVERY DAY EXCEPT 1/2 TABLET ON TUESDAY, TUESDAY, TUESDAY AND TUESDAY SOLD: 04/26/2019 [facility] 40 mg 03/12/2019 12:00:00 AM EST tablet 30 TAKE ONE TABLET BY MOUTH EVERY DAY AT BEDTIME TAKE ONE TABLET BY MOUTH EVERY DAY AT BEDTIME SOLD: 06/14/2019 [facility] 40 mg 03/12/2019 12:00:00 AM EST tablet 30 TAKE ONE TABLET BY MOUTH EVERY DAY AT BEDTIME TAKE ONE TABLET BY MOUTH EVERY DAY AT BEDTIME SOLD: 05/22/2019 [facility] 10 mg 03/07/2019 12:00:00 AM EST tablet 90 TAKE ONE TABLET BY MOUTH EVERY DAY TAKE ONE TABLET BY MOUTH EVERY DAY SOLD: 01/26/2020 [facility] 10 mg 03/07/2019 12:00:00 AM EST tablet 90 TAKE ONE TABLET BY MOUTH EVERY DAY TAKE ONE TABLET BY MOUTH EVERY DAY SOLD: 06/12/2019 [facility] atorvastatin 20 MG Oral Tablet ATORVASTATIN CALCIUM 03/06/2019 1 2:00:00 AM EST tablet 90 TAKE ONE TABLET BY MOUTH EVERY D AY TAKE ONE TABLET BY MOUTH EVERY DAY SOLD: 09/19/2019 [facility] atorvastatin 20 MG Oral Tablet ATORVASTATIN CALCIUM 03/06/2019 1 2:00:00 AM EST tablet 90 TAKE ONE TABLET BY MOUTH EVERY D AY TAKE ONE TABLET BY MOUTH EVERY DAY SOLD: 06/14/2019 [facility] 100 mg 02/22/2019 12:00:00 AM EST tablet 180 TAKE ONE TABLET BY MOUTH TWICE A DAY TAKE ONE TABLET BY MOUTH TWICE A DAY SOLD: 01/26/2020 [facility] 25 mg 02/22/2019 12:00:00 AM EST tablet 180 TAKE ONE TABLET BY MOUTH TWICE A DAY TAKE ONE TABLET BY MOUTH TWICE A DAY SOLD: 06/12/2019 [facility] 25 mg 02/22/2019 12:00:00 AM EST tablet 180 TAKE ONE TABLET BY MOUTH TWICE A DAY TAKE ONE TABLET BY MOUTH TWICE A DAY SOLD: 01/26/2020 [facility] 25 mg 02/22/2019 12:00:00 AM EST tablet 180 TAKE ONE TABLET BY MOUTH TWICE A DAY TAKE ONE TABLET BY MOUTH TWICE A DAY SOLD: 09/19/2019 [facility] 100 mg 02/22/2019 12:00:00 AM EST tablet 180 TAKE ONE TABLET BY MOUTH TWICE A DAY TAKE ONE TABLET BY MOUTH TWICE A DAY SOLD: 09/19/2019 [facility] 100 mg 02/22/2019 12:00:00 AM EST tablet 180 TAKE ONE TABLET BY MOUTH TWICE A DAY TAKE ONE TABLET BY MOUTH TWICE A DAY SOLD: 06/12/2019 [facility] 5 mg 12/12/2018 12:00:00 AM EDT tablet 30 TAKE 1 TABLET BY MOUTH DAILY ON TUESDAY, TUESDAY AND TUESDAY AND 1/2 TABLET DAILY ON TUESDAY, TUESDAY, TUESDAY AND TUESDAY TAKE 1 TABLET BY MOUTH DAILY ON TUESDAY, TUESDAY AND TUESDAY AND 1/2 TABLET DAILY ON TUESDAY, TUESDAY, TUESDAY AND TUESDAY SOLD: 09/17/2019 [facility] 5 mg 12/12/2018 12:00:00 AM EDT tablet 30 TAKE 1 TABLET BY MOUTH DAILY ON TUESDAY, TUESDAY AND TUESDAY AND 1/2 TABLET DAILY ON TUESDAY, TUESDAY, TUESDAY AND TUESDAY TAKE 1 TABLET BY MOUTH DAILY ON TUESDAY, TUESDAY AND TUESDAY AND 1/2 TABLET DAILY ON TUESDAY, TUESDAY, TUESDAY AND TUESDAY SOLD: 07/26/2019 [facility] 5 mg 12/12/2018 12:00:00 AM EDT tablet 30 TAKE 1 TABLET BY MOUTH DAILY ON TUESDAY, TUESDAY AND TUESDAY AND 1/2 TABLET DAILY ON TUESDAY, TUESDAY, TUESDAY AND TUESDAY TAKE 1 TABLET BY MOUTH DAILY ON TUESDAY, TUESDAY AND TUESDAY AND 1/2 TABLET DAILY ON TUESDAY, TUESDAY, TUESDAY AND TUESDAY SOLD: 05/22/2019 [facility] Insurance Providers Payer name Policy type / Coverage type Policy ID Covered green party ID Covered green party's relationship to vogel Policy Vogel Plan Information MEDICARE [id number] SP [id number] FOR LIFE [id number] [facility] [id number] MEDICARE C [id number] S [id number] R49 FOR LIFE O [id number] S [id number] WPS For Life Medigap Part B [id number] Family Depende nt [id number] Medicare [place] Govt Servic Medicare Primary [id number] Self [id number] [place] [facility] [place] Medigap Part B [id number] Family Dep endent [id number] [place] [id number] Self [id number] [place] [facility] [place] Medigap Part B [id number] Family Dep endent [id number] [place] Primary [id number] Self [id number] WPS For Life Medigap Part B [id number] Family Depende nt [id number] Medicare [place] Govt Servic Medicare Primary [id number] Self [id number] [place] [facility] [employer] [place] Medigap Part B [id number] Family Dep endent [id number] [place] Primary [id number] Self [id number] WPS For Life Medigap Part B [id number] Family Depende nt [id number] Medicare [place] Govt Servic Medicare Primary [id number] Self [id number] WPS For Life Medigap Part B [id number] Family Depende nt [id number] Medicare [place] Govt Servic Medicare Primary [id number] Self [id number] WPS For Life Medigap Part B [id number] Family Depende nt [id number] Medicare [place] Govt Servic Medicare Primary [id number] Self [id number] WPS For Life Medigap Part B [id number] Family Depende nt [id number] Medicare [place] Govt Servic Medicare Primary [id number] Self [id number] WPS For Life Medigap Part B [id number] Family Depende nt [id number] Medicare [place] Govt Servic Medicare Primary [id number] Self [id number] WPS For Life Medigap Part B [id number] Family Depende nt [id number] Medicare [place] Govt Servic Medicare Primary [id number] Self [id number] WPS For Life Medigap Part B [id number] Family Depende nt [id number] Medicare [place] Govt Servic Medicare Primary [id number] Self [id number] MEDICARE [id number] SP [id number] A MEDICARE C [id number] S [id number] A [facility] C [id number] S [id number] WPS For Life Medigap Part B [id number] Family Depende nt [id number] Medicare Nat[place] Govt Servic Medicare Primary [id number] Self [id number] WPS For Life Medigap Part B [id number] Family Depende nt [id number] Medicare Natl Govt Servic Medicare Primary [id number] Self [id number] WPS For Life Medigap Part B [id number] Family Depende nt [id number] Medicare Natl Govt Servic Medicare Primary [id number] Self [id number] WPS For Life Medigap Part B [id number] Family Depende nt [id number] Medicare Natl Govt Servic Medicare Primary [id number] Self [id number] Problems, Conditions, and Diagnoses Code Display Name Description Problem Type Effective Dates Data Source(s) 56793708 Essential hypertension Essential hypertension Problem 10/15/2019 12:00:00 AM EDT [facility] ([facility] ) [id number] Mitral valve disorder Mitral valve disorder Problem 06/11/2019 12:00:00 AM EDT [facility] ([facility]) [id number] 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 Problem 06/11/2019 12:00:00 AM EDT [facility] ([facility]) [id number] Chronic pulmonary heart disease Chronic pulmonar y heart disease Problem 06/11/2019 12:00:00 AM EDT [facility]) [id number] Chronic diastolic heart failure Chronic diastoli c heart failure Problem 06/11/2019 12:00:00 AM EDT [facility] Surgeries/Procedures Procedure Description Date Indications Data Source(s) Brief Emotional/Behav Assessment W/ Scoring Doc Per Standard Inst 01/31/2020 12:00:00 AM EDT [facility] ([facility] ) ECG ROUTINE ECG W/LEAST 12 LDS W/I&R 09/06/2019 12:00: 00 AM EDT [facility] ([facility]) ARTHROCENTESIS ASPIR&/INJECTION MAJOR JT/BURSA 12:00:00 AM EDT [facility] ([facility] ) ARTHROCENTESIS ASPIR&/INJECTION MAJOR JT/BURSA 12:00:00 AM EDT [facility] ([facility]) ARTHROCENTESIS ASPIR&/INJECTION MAJOR JT/BURSA 12:00:00 AM EDT [facility] ([facility] ) ECG ROUTINE ECG W/LEAST 12 LDS W/I&R 06/11/2019 12:00: 00 AM EDT [facility] ([facility]) ECHO TTHRC R-T 2D W/WOM-MODE COMPL SPEC&COLR DOP 05/03 12:00:00 AM EST [facility] ([facility]) Results ID Date Data Source [id number] 05/05/2020 01:39:00 PM EST [facility] ([facility]) Name Value Range Interpretation Code Description Data [place] rce(s) Supporting Document(s) Parathyrin.intact [Mass/volume] in Serum or Plasma 26.3 pg/mL 18.5-88 .[address] [facility] ID Date Data Source [id number] 05/05/2020 01:39:00 PM EST [facility] ([facility] Name Value Range Interpretation Code Description Data [place] rce(s) Supporting Document(s) Calcidiol [Mass/volume] in Serum or Plasma 32.7 24.0-80.[address] [facility] This test was performed using [employer] I P Vitamin D immunoassay kit. Values obtained with different assay methods should not be used interchangeably. ID Date Data Source [id number] 05/05/2020 01:39:00 PM EST [facility] ([facility]) Name Value Range Interpretation Code Description Data [place] rce(s) Supporting Document(s) Thyrotropin [Units/volume] in Serum or Plasma by Detec tion limit <= 0.05 mIU/L 0.54 uIU/mL 0.36-3.74 [facility] ([facility] ) ID Date Data Source [id number] 05/05/2020 01:39:00 PM EST [facility] ([facility]) Name Value Range Interpretation Code Description Data [place] rce(s) Supporting Document(s) Glucose [Mass/volume] in Serum or Plasma 98 mg/dL 74-99 [facility] ([facility]) 100-125 mg/dL PRE-DIABETES/FASTING >126 mg/dL DIABETES/FASTING Urea nitrogen [Mass/volume] in Serum or Plasma 49 mg/dL 7-18 [facility] ([facility]) NOTE: BUN,CALCIUM VERIFIED Creatinine 1.2 mg/dL 0.6-1.3 [facility] ([facility]) Sodium [Moles/volume] in Serum or Plasma 142 meq/L 136-145 [facility] ([facility]) Chloride [Moles/volume] in Serum or Plasma 104 meq/L 98-107 [facility] ([facility]) Potassium [Moles/volume] in Serum or Plasma 4.5 meq/L 3.5-5.1 [facility] ([facility]) Carbon dioxide, total [Moles/volume] in Serum or Plasma 23 meq/L 21 -32 [facility] ([facility]) Glomerular filtration rate/1.73 sq M pre dicted among non-blacks [Volume Rate/Area] in Serum or Plasma by Creatinine-based formula (MDRD) 45 mL/min [facility] ([facility]) Calcium [Mass/volume] in Serum or Plasma 10.6 mg/dL 8.5-10.1 [facility] ([facility]) Glomerular filtration rate/1.73 sq M pre dicted among blacks [Volume Rate/Area] in Serum or Plasma by Creatinine-based formula (MDRD) 55 mL/min [facility] ([facility]) <content>CHRONIC KIDNEY DISEASE STAGING PER NKF</content>
<content></content>
<content>STAGE I & II GFR >= 60 NORMAL TO MILDLY DECREASED</content>
<content>STAGE III GFR 30-59 MODERATELY DECREASED</content>
<content>STAGE IV GFR 15-29 SEVERELY DECREASED</content>
<content>STAGE V GFR <15 VERY LITTLE GFR LEFT</content>
<content>ESRD GFR <15 ON RUBBER MOLD MAKER</content>
<content></content> ID Date Data Source [id number] 05/05/2020 01:39:00 PM EST [facility] ([facility]) Name Value Range Interpretation Code Description Data [place] rce(s) Supporting Document(s) Leukocytes [#/volume] in Blood by Automated count 5.8 x10*3/UL 4.1-10 .9 [facility] ([facility]) Erythrocytes [#/volume] in Blood by Automated count 4.01 x10*6/UL 4.2 0-6.30 [facility] ([facility]) Hemoglobin [Mass/volume] in Blood 13.1 g/dL 12.0-18.0 [facility] ([facility]) Hematocrit [Volume Fraction] of Blood by Automated count 37.5 % 3 7.0-51.0 [facility] ([facility]) MCH 32.6 pg 26.0-32.0 [facility] MCHC 34.9 g/dL 31.0-38.0 [facility] ([facility]) MCV 93.4 fL 80.0-97.0 [facility] ([facility]) Platelets [#/volume] in Blood by Automated count 191 x10*3/UL 140-440 [facility] ([facility]) MPV 8.6 FL 7.8-11.0 [facility] Erythrocyte distribution width [Ratio] by Automated count 13.8 % 11.6-13.7 [facility] ([facility]) Mid % 6.7 % 1.7-9.3 [facility] Lymph % 24.4 % 10.0-58.5 [facility] Mid # 0.4 x10*3/UL 0.1-0.6 [facility] ([facility]) Neut % 68.9 % 37.0-92.0 [facility] ([facility]) Lymph # 1.4 x10*3/UL 0.6-4.1 [facility] ([facility]) Neut # 4.0 x10*3/UL 2.0-7.8 [facility] ([facility]) ID Date Data Source [id number] 02/14/2020 11:57:00 AM EST [facility] ([facility]) Name Value Range Interpretation Code Description Data [place] rce(s) Supporting Document(s) Inr 6.49 Above upper panic limits [facility] ([facility] THERAPUTIC HUMAN INR VALUES INDICATIONS NORMAL RANGES PROPHYLAXIS/TREATMENT OF: VENOUS THROMBOSIS 2.0-3.0 PULMONARY EMBOLISM 2.0-3.0 PREVENTION OF SYSTEMIC EMBOLISM FROM: TISSUE HEART VALVES 2.0-3.0 ACUTE MYOCARDIAL INFARCTION 2.0-3.0 VALVULAR HEART DISEASE 2.0-3.0 ATRIAL FIBRILLATION 2.0-3.0 MECHANICAL VALVES(HIGH RISK) 2.5-3.5 RECURRENT MYOCARDIAL INFARCTION 2.5-3.5 Prothrombin Time 58.4 s 12.5-14.3 [facility] ([facility]) ID Date Data Source [id number] 02/14/2020 11:56:00 AM EST [facility] ([facility]) Name Value Range Interpretation Code Description Data [place] rce(s) Supporting Document(s) Leukocytes [#/volume] in Blood by Automated count 6.0 x10*3/UL 4.1-10 .9 [facility] ([facility]) Hemoglobin [Mass/volume] in Blood 13.0 g/dL 12.0-18.0 [facility] ([facility]) Hematocrit [Volume Fraction] of Blood by Automated count 37.5 % 3 7.0-51.0 [facility] ([facility]) Erythrocytes [#/volume] in Blood by Automated count 4.11 x10*6/UL 4.2 0-6.30 [facility] ([facility]) MCV 91.1 fL 80.0-97.0 [facility] ([facility]) MCH 31.6 pg 26.0-32.0 [facility] ([facility]) MCHC 34.7 g/dL 31.0-38.0 [facility] ([facility]) Platelets [#/volume] in Blood by Automated count 243 x10*3/UL 140-440 [facility] ([facility]) MPV 8.3 FL 7.8-11.0 [facility] ([facility]) Erythrocyte distribution width [Ratio] by Automated count 14.2 % 11.6-13.7 [facility] ([facility]) Lymph % 21.2 % 10.0-58.5 [facility] ([facility]) Mid % 5.8 % 1.7-9.3 [facility] ([facility]) Neut % 73.0 % 37.0-92.0 [facility] ([facility]) Neut # 4.4 x10*3/UL 2.0-7.8 [facility] ([facility]) Lymph # 1.2 x10*3/UL 0.6-4.1 [facility] ([facility]) Mid # 0.4 x10*3/UL 0.1-0.6 [facility] ([facility]) ID Date Data Source [id number] 02/14/2020 11:29:00 AM EST [facility] ([facility]) Name Value Range Interpretation Code Description Data [place] rce(s) Supporting Document(s) INR in Platelet poor plasma by Coagulation assay 7.9 [facility] ID Date Data Source [id number] 02/14/2020 10:58:00 AM EST [facility] ([facility]) Name Value Range Interpretation Code Description Data [place] rce(s) Supporting Document(s) Glucose [Mass/volume] in Serum or Plasma 100 mg/dL 74-99 [facility] ([facility]) 100-125 mg/dL PRE-DIABETES/FASTING >126 mg/dL DIABETES/FASTING Urea nitrogen [Mass/volume] in Serum or Plasma 17 mg/dL 7-18 [facility] Creatinine 0.7 mg/dL 0.6-1.3 [facility] ([facility]) Sodium [Moles/volume] in Serum or Plasma 141 meq/L 136-145 [facility] ([facility]) Carbon dioxide, total [Moles/volume] in Serum or Plasma 24 meq/L 21 -32 [facility] ([facility]) Potassium [Moles/volume] in Serum or Plasma 4.4 meq/L 3.5-5.1 [facility] ([facility]) Chloride [Moles/volume] in Serum or Plasma 103 meq/L 98-107 [facility] Glomerular filtration rate/1.73 sq M pre dicted among non-blacks [Volume Rate/Area] in Serum or Plasma by Creatinine-based formula (MDRD) Laboratory test result [facility] ([facility] Glomerular filtration rate/1.73 sq M pre dicted among blacks [Volume Rate/Area] in Serum or Plasma by Creatinine-based formula (MDRD) Laboratory test result [facility] ([facility]) <content>CHRONIC KIDNEY DISEASE STAGING PER NKF</content>
<content></content>
<content>STAGE I & II GFR >= 60 NORMAL TO MILDLY DECREASED</content>
<content>STAGE III GFR 30-59 MODERATELY DECREASED</content>
<content>STAGE IV GFR 15-29 SEVERELY DECREASED</content>
<content>STAGE V GFR <15 VERY LITTLE GFR LEFT</content>
<content>ESRD GFR <15 ON RUBBER MOLD MAKER</content>
<content></content> Calcium [Mass/volume] in Serum or Plasma 10.2 mg/dL 8.5-10.[address] [facility] ([facility] NOTE: RESULT VERIFIED. ID Date Data Source [id number] 02/05/2020 11:20:00 AM EST [facility] ([facility]) Name Value Range Interpretation Code Description Data [place] rce(s) Supporting Document(s) INR in Platelet poor plasma by Coagulation assay 3.7 [facility] ([facility]) ID Date Data Source [id number] 01/31/2020 01:07:00 PM EDT [facility] ([facility]) Name Value Range Interpretation Code Description Data [place] rce(s) Supporting Document(s) INR in Platelet poor plasma by Coagulation assay 2.7 [facility] ([facility]) ID Date Data Source [id number] 01/31/2020 11:26:00 AM EDT [facility] ([facility]) Name Value Range Interpretation Code Description Data [place] rce(s) Supporting Document(s) Digoxin [Mass/volume] in Serum or Plasma 0.6 ng/mL 0.5-2.0 [facility] ([facility]) ID Date Data Source [id number] 01/31/2020 11:26:00 AM EDT [facility] ([facility]) Name Value Range Interpretation Code Description Data [place] rce(s) Supporting Document(s) Digoxin [Mass/volume] in Serum or Plasma 0.6 ng/mL 0.5-2.0 [facility] ([facility]) ID Date Data Source [id number] 01/31/2020 11:25:00 AM EDT [facility] ([facility]) Name Value Range Interpretation Code Description Data [place] rce(s) Supporting Document(s) Hemoglobin [Mass/volume] in Blood 13.8 g/dL 12.0-18.0 [facility] Erythrocytes [#/volume] in Blood by Automated count 4.36 x10*6/UL 4.2 0-6.30 [facility] Leukocytes [#/volume] in Blood by Automated count 6.2 x10*3/UL 4.1-10 .9 [facility] ([facility]) MCH 31.6 pg 26.0-32.0 [facility] ([facility]) Hematocrit [Volume Fraction] of Blood by Automated count 40.7 % 3 7.0-51.0 [facility] MCV 93.2 fL 80.0-97.0 [facility] ([facility]) MCHC 34.0 g/dL 31.0-38.0 [facility] ([facility]) Erythrocyte distribution width [Ratio] by Automated count 14.5 % 11.6-13.7 [facility] ([facility]) Lymph % 19.8 % 10.0-58.5 [facility] Platelets [#/volume] in Blood by Automated count 236 x10*3/UL 140-440 [facility] ([facility]) MPV 7.8 FL 7.8-11.0 [facility] Lymph # 1.2 x10*3/UL 0.6-4.1 [facility] ([facility]) Mid % 5.7 % 1.7-9.3 [facility] Neut % 74.5 % 37.0-92.0 [facility] Neut # 4.6 x10*3/UL 2.0-7.8 [facility] ([facility]) Mid # 0.4 x10*3/UL 0.1-0.6 [facility] ([facility]) ID Date Data Source [id number] 01/31/2020 11:25:00 AM EDT [facility] ([facility]) Name Value Range Interpretation Code Description Data [place] rce(s) Supporting Document(s) Magnesium 2.1 mg/dL 1.8-2.4 [facility] ([facility]) ID Date Data Source [id number] 01/31/2020 11:25:00 AM EDT [facility] ([facility]) Name Value Range Interpretation Code Description Data [place] rce(s) Supporting Document(s) Glucose [Mass/volume] in Serum or Plasma 101 mg/dL 74-99 [facility] ([facility]) 100-125 mg/dL PRE-DIABETES/FASTING >126 mg/dL DIABETES/FASTING Creatinine 0.7 mg/dL 0.6-1.3 [facility] ([facility]) Urea nitrogen [Mass/volume] in Serum or Plasma 17 mg/dL 7-18 [facility] ([facility]) Chloride [Moles/volume] in Serum or Plasma 104 meq/L 98-107 [facility] ([facility]) Potassium [Moles/volume] in Serum or Plasma 4.0 meq/L 3.5-5.1 [facility] ([facility]) Sodium [Moles/volume] in Serum or Plasma 143 meq/L 136-145 [facility] ([facility]) Calcium [Mass/volume] in Serum or Plasma 10.7 mg/dL 8.5-10.1 [facility] ([facility] NOTE: RESULT VERIFIED. Glomerular filtration rate/1.73 sq M pre dicted among non-blacks [Volume Rate/Area] in Serum or Plasma by Creatinine-based formula (MDRD) Laboratory test result [facility] ([facility] ) Carbon dioxide, total [Moles/volume] in Serum or Plasma 30 meq/L 21 -32 [facility] ([facility]) Glomerular filtration rate/1.73 sq M pre dicted among blacks [Volume Rate/Area] in Serum or Plasma by Creatinine-based formula (MDRD) Laboratory test result [facility] ([facility]) <content>CHRONIC KIDNEY DISEASE STAGING PER NKF</content>
<content></content>
<content>STAGE I & II GFR >= 60 NORMAL TO MILDLY DECREASED</content>
<content>STAGE III GFR 30-59 MODERATELY DECREASED</content>
<content>STAGE IV GFR 15-29 SEVERELY DECREASED</content>
<content>STAGE V GFR <15 VERY LITTLE GFR LEFT</content>
<content>ESRD GFR <15 ON RUBBER MOLD MAKER</content>
<content></content> ID Date Data Source [id number] 01/31/2020 11:25:00 AM EDT [facility] Name Value Range Interpretation Code Description Data [place] rce(s) Supporting Document(s) Thyrotropin [Units/volume] in Serum or Plasma by Detec tion limit <= 0.05 mIU/L 0.16 uIU/mL 0.36-3.74 [facility] ([facility] ) ID Date Data Source [id number] 01/31/2020 11:25:00 AM EDT [facility]) Name Value Range Interpretation Code Description Data [place] rce(s) Supporting Document(s) Urine Color Laboratory test result [facility] ([facility]) Urine PH 6.5 units 5.0-9.0 [facility] Urine Appearance Laboratory test result [facility] ([facility]) Urine Leukocytes Laboratory test result [facility] ([facility]) Specific gravity of Urine 1.010 1.005-1.030 [facility] ([facility]) Urine Blood Laboratory test result [facility] ([facility]) Glucose [Presence] in Urine Laboratory test result [facility] ([facility]) Urine Protein Laboratory test result 0-0 [facility] ([facility]) Urine Nitrite Laboratory test result [facility] ([facility]) Urine Ketone Laboratory test result [facility] ([facility]) Urine Urobilinogen 0.2 mg/dL 0.2-1.0 [facility] ([facility]) Bilirubin.total [Mass/volume] in Serum or Plasma Laboratory test resu lt [facility] ([facility]) ID Date Data Source [id number] 01/31/2020 11:25:00 AM EDT [facility] ([facility]) Name Value Range Interpretation Code Description Data [place] rce(s) Supporting Document(s) Leukocytes [#/volume] in Blood by Automated count 6.2 x10*3/UL 4.1-10 .9 [facility] ([facility]) Erythrocytes [#/volume] in Blood by Automated count 4.36 x10*6/UL 4.2 0-6.30 [facility] ([facility]) Hemoglobin [Mass/volume] in Blood 13.8 g/dL 12.0-18.0 [facility] ([facility]) MCV 93.2 fL 80.0-97.0 [facility] Hematocrit [Volume Fraction] of Blood by Automated count 40.7 % 3 7.0-51.0 [facility] ([facility]) MCH 31.6 pg 26.0-32.0 [facility] ([facility]) MCHC 34.0 g/dL 31.0-38.0 [facility] ([facility]) Erythrocyte distribution width [Ratio] by Automated count 14.5 % 11.6-13.7 [facility] ([facility]) Platelets [#/volume] in Blood by Automated count 236 x10*3/UL 140-440 [facility] ([facility]) Mid % 5.7 % 1.7-9.[address] [facility] ([facility]) Lymphocytes/100 leukocytes in Blood by Automated count 19.8 % 10. 0-58.[address] [facility] ([facility]) Platelet mean volume [Entitic volume] in Blood by [place] 7.8 FL 7.8-11.[address] [facility] [facility] ([facility]) Neut % 74.5 % 37.0-92.[address] [facility] ([facility]) Mid # 0.4 x10*3/UL 0.1-0.[address] [facility] ([facility]) Lymph # 1.2 x10*3/UL 0.6-4.[address] [facility] ([facility]iolog y [facility]) Neutrophils [#/volume] in [place] by Manual count 4.6 x10*3/UL 2.0-7.[address] [facility] ([facility]) ID Date Data Source [id number] 01/31/2020 11:24:00 AM EDT [facility] ([facility]) Name Value Range Interpretation Code Description Data [place] rce(s) Supporting Document(s) Thyroxine (T4) free [Mass/volume] in Serum or Plasma 1.33 ng/dL 0.76- 1.46 [facility] ([facility]) ID Date Data Source [id number] 01/28/2020 11:44:00 AM EDT [facility] ([facility]) Name Value Range Interpretation Code Description Data [place] rce(s) Supporting Document(s) INR in Platelet poor plasma by Coagulation assay 1.2 [facility] ([facility]) ID Date Data Source [id number] 01/24/2020 12:43:00 PM EDT [facility] ([facility]) Name Value Range Interpretation Code Description Data [place] rce(s) Supporting Document(s) INR in Platelet poor plasma by Coagulation assay 7.2 [facility] ([facility]) ID Date Data Source [id number] 01/24/2020 11:33:00 AM EDT [facility] ([facility]) Name Value Range Interpretation Code Description Data [place] rce(s) Supporting Document(s) Prothrombin Time 49.4 s 12.5-14.3 [facility] ([facility]) Inr 5.24 Above upper panic limits [facility] ([facility]) THERAPUTIC HUMAN INR VALUES INDICATIONS NORMAL RANGES PROPHYLAXIS/TREATMENT OF: VENOUS THROMBOSIS 2.0-3.0 PULMONARY EMBOLISM 2.0-3.0 PREVENTION OF SYSTEMIC EMBOLISM FROM: TISSUE HEART VALVES 2.0-3.0 ACUTE MYOCARDIAL INFARCTION 2.0-3.0 VALVULAR HEART DISEASE 2.0-3.0 ATRIAL FIBRILLATION 2.0-3.0 MECHANICAL VALVES(HIGH RISK) 2.5-3.5 RECURRENT MYOCARDIAL INFARCTION 2.5-3.5 ID Date Data Source [id number] 01/24/2020 11:33:00 AM EDT [facility] ([facility]) Name Value Range Interpretation Code Description Data [place] rce(s) Supporting Document(s) Erythrocytes [#/volume] in Blood by Automated count 4.37 x10*6/UL 4.2 0-6.30 [facility] ([facility]) Leukocytes [#/volume] in Blood by Automated count 6.6 x10*3/UL 4.1-10 .9 [facility] ([facility]) MCV 91.9 fL 80.0-97.0 [facility]) Hemoglobin [Mass/volume] in Blood 13.7 g/dL 12.0-18.0 [facility] Hematocrit [Volume Fraction] of Blood by Automated count 40.2 % 3 7.0-51.0 [facility] Erythrocyte distribution width [Ratio] by Automated count 13.7 % 11.6-13.7 [facility] ([facility]) MCHC 34.2 g/dL 31.0-38.0 [facility]) MCH 31.4 pg 26.0-32.0 [facility]) Lymph % 16.8 % 10.0-58.5 [facility] ([facility]) Platelets [#/volume] in Blood by Automated count 251 x10*3/UL 140-440 [facility] ([facility]) MPV 8.3 FL 7.8-11.0 [facility] ([facility]) Lymph # 1.1 x10*3/UL 0.6-4.1 [facility] ([facility]) Mid % 4.7 % 1.7-9.3 [facility] Neut % 78.5 % 37.0-92.0 [facility]) Neut # 5.2 x10*3/UL 2.0-7.8 [facility] ([facility]) Mid # 0.3 x10*3/UL 0.1-0.6 [facility] ([facility]) ID Date Data Source [id number] 01/17/2020 12:07:00 PM EDT [facility] ([facility]) Name Value Range Interpretation Code Description Data [place] rce(s) Supporting Document(s) INR in Platelet poor plasma by Coagulation assay 1.[address] [facility] ([facility]) ID Date Data Source [id number] 12/14/2019 12:44:00 PM EDT [facility] ([facility]) Name Value Range Interpretation Code Description Data [place] rce(s) Supporting Document(s) INR in Platelet poor plasma by Coagulation assay 3.[address] [facility] ([facility]) ID Date Data Source [id number] 12/05/2019 03:27:00 PM EDT [facility] ([facility]) Name Value Range Interpretation Code Description Data [place] rce(s) Supporting Document(s) INR in Platelet poor plasma by Coagulation assay 1.[address] [facility] ([facility]) ID Date Data Source [id number] 10/30/2019 01:48:00 PM EDT [facility] ([facility]) Name Value Range Interpretation Code Description Data [place] rce(s) Supporting Document(s) INR in Platelet poor plasma by Coagulation assay 2.[address] [facility] ([facility]) ID Date Data Source [id number] 10/26/2019 11:57:00 AM EDT [facility] ([facility]) Name Value Range Interpretation Code Description Data [place] rce(s) Supporting Document(s) Inr 4.98 [facility] ([facility]) THERAPUTIC HUMAN INR VALUES INDICATIONS NORMAL RANGES PROPHYLAXIS/TREATMENT OF: VENOUS THROMBOSIS 2.0-3.0 PULMONARY EMBOLISM 2.0-3.0 PREVENTION OF SYSTEMIC EMBOLISM FROM: TISSUE HEART VALVES 2.0-3.0 ACUTE MYOCARDIAL INFARCTION 2.0-3.0 VALVULAR HEART DISEASE 2.0-3.0 ATRIAL FIBRILLATION 2.0-3.0 MECHANICAL VALVES(HIGH RISK) 2.5-3.5 RECURRENT MYOCARDIAL INFARCTION 2.5-3.5 Prothrombin Time 47.4 s 12.5-14.3 [facility] ([facility]) ID Date Data Source [id number] 10/26/2019 11:56:00 AM EDT [facility] ([facility]) Name Value Range Interpretation Code Description Data [place] rce(s) Supporting Document(s) Hematocrit [Volume Fraction] of Blood by Automated count 28.7 % 3 7.0-51.0 [facility] Erythrocytes [#/volume] in Blood by Automated count 3.00 x10*6/UL 4.2 0-6.30 [facility] ([facility]) Hemoglobin [Mass/volume] in Blood 10.1 g/dL 12.0-18.0 [facility] ([facility]) NOTE: RESULT VERIFIED. Leukocytes [#/volume] in Blood by Automated count 8.4 x10*3/UL 4.1-10 .9 [facility] ([facility]) MCH 33.8 pg 26.0-32.0 [facility] ([facility]) MCHC 35.3 g/dL 31.0-38.0 [facility] ([facility]) MCV 95.7 fL 80.0-97.0 [facility] ([facility]) Platelets [#/volume] in Blood by Automated count 289 x10*3/UL 140-440 [facility] MPV 7.4 FL 7.8-11.0 [facility] ([facility]) Erythrocyte distribution width [Ratio] by Automated count 13.2 % 11.6-13.7 [facility] ([facility]) Neut % 79.2 % 37.0-92.0 [facility]) Mid % 6.2 % 1.7-9.3 [facility] Lymph # 1.2 x10*3/UL 0.6-4.1 [facility] ([facility]) Lymph % 14.6 % 10.0-58.5 [facility]) Mid # 0.6 x10*3/UL 0.1-0.6 [facility] ([facility]) Neut # 6.6 x10*3/UL 2.0-7.8 [facility] ([facility]) ID Date Data Source [id number] 10/24/2019 10:42:00 AM EDT [facility] ([facility]) Name Value Range Interpretation Code Description Data [place] rce(s) Supporting Document(s) INR in Platelet poor plasma by Coagulation assay 8.0 [facility] ID Date Data Source [id number] 10/24/2019 10:31:00 AM EDT [facility] ([facility]) Name Value Range Interpretation Code Description Data [place] rce(s) Supporting Document(s) Prothrombin Time 59.3 s 11.8-14.0 [facility] ([facility]) Inr 6.73 Above upper panic limits [facility] ([facility]) THERAPUTIC HUMAN INR VALUES INDICATIONS NORMAL RANGES PROPHYLAXIS/TREATMENT OF: VENOUS THROMBOSIS 2.0-3.0 PULMONARY EMBOLISM 2.0-3.0 PREVENTION OF SYSTEMIC EMBOLISM FROM: TISSUE HEART VALVES 2.0-3.0 ACUTE MYOCARDIAL INFARCTION 2.0-3.0 VALVULAR HEART DISEASE 2.0-3.0 ATRIAL FIBRILLATION 2.0-3.0 MECHANICAL VALVES(HIGH RISK) 2.5-3.5 RECURRENT MYOCARDIAL INFARCTION 2.5-3.5 ID Date Data Source [id number] 10/24/2019 10:06:00 AM EDT [facility] ([facility]) Name Value Range Interpretation Code Description Data [place] rce(s) Supporting Document(s) Thyrotropin [Units/volume] in Serum or Plasma by Detec tion limit <= 0.05 mIU/L 0.16 uIU/mL 0.36-3.74 [facility] ([facility] ) ID Date Data Source [id number] 10/24/2019 10:06:00 AM EDT [facility] ([facility]) Name Value Range Interpretation Code Description Data [place] rce(s) Supporting Document(s) Glucose [Mass/volume] in Serum or Plasma 99 mg/dL 74-99 [facility] ([facility]) 100-125 mg/dL PRE-DIABETES/FASTING >126 mg/dL DIABETES/FASTING Urea nitrogen [Mass/volume] in Serum or Plasma 25 mg/dL 7-18 [facility] ([facility]) Chloride [Moles/volume] in Serum or Plasma 107 meq/L 98-107 [facility] ([facility]) Creatinine 0.8 mg/dL 0.6-1.3 [facility] ([facility]) Potassium [Moles/volume] in Serum or Plasma 4.6 meq/L 3.5-5.1 [facility] ([facility]) Sodium [Moles/volume] in Serum or Plasma 143 meq/L 136-145 [facility] ([facility]) Carbon dioxide, total [Moles/volume] in Serum or Plasma 26 meq/L 21 -32 [facility] ([facility]) Glomerular filtration rate/1.73 sq M pre dicted among non-blacks [Volume Rate/Area] in Serum or Plasma by Creatinine-based formula (MDRD) Laboratory test result [facility] ([facility] ) Calcium [Mass/volume] in Serum or Plasma 10.0 mg/dL 8.5-10.1 [facility] ([facility]) Glomerular filtration rate/1.73 sq M pre dicted among blacks [Volume Rate/Area] in Serum or Plasma by Creatinine-based formula (MDRD) Laboratory test result [facility] ([facility]) <content>CHRONIC KIDNEY DISEASE STAGING PER NKF</content>
<content></content>
<content>STAGE I & II GFR >= 60 NORMAL TO MILDLY DECREASED</content>
<content>STAGE III GFR 30-59 MODERATELY DECREASED</content>
<content>STAGE IV GFR 15-29 SEVERELY DECREASED</content>
<content>STAGE V GFR <15 VERY LITTLE GFR LEFT</content>
<content>ESRD GFR <15 ON RUBBER MOLD MAKER</content>
<content></content> ID Date Data Source [id number] 10/24/2019 10:06:00 AM EDT [facility] ([facility]) Name Value Range Interpretation Code Description Data [place] rce(s) Supporting Document(s) Leukocytes [#/volume] in Blood by Automated count 8.1 x10*3/UL 4.1-10 .9 [facility] ([facility]) Erythrocytes [#/volume] in Blood by Automated count 2.84 x10*6/UL 4.2 0-6.30 [facility] ([facility]) MCV 96.3 fL 80.0-97.0 [facility]) Hematocrit [Volume Fraction] of Blood by Automated count 27.3 % 3 7.0-51.0 [facility] ([facility]) Hemoglobin [Mass/volume] in Blood 9.5 g/dL 12.0-18.0 [facility] ([facility]) NOTE: RESULT VERIFIED. Erythrocyte distribution width [Ratio] by Automated count 13.4 % 11.6-13.7 [facility] ([facility]) MCHC 34.9 g/dL 31.0-38.0 [facility] ([facility]) MCH 33.6 pg 26.0-32.0 [facility] ([facility]) MPV 7.9 FL 7.8-11.0 [facility] ([facility]) Lymph % 14.4 % 10.0-58.5 [facility] ([facility]) Platelets [#/volume] in Blood by Automated count 281 x10*3/UL 140-440 [facility] ([facility]) Lymph # 1.1 x10*3/UL 0.6-4.1 [facility] ([facility]) Mid # 0.5 x10*3/UL 0.1-0.6 [facility] ([facility]) Neut % 80.1 % 37.0-92.0 [facility]) Mid % 5.5 % 1.7-9.3 [facility]) Neut # 6.5 x10*3/UL 2.0-7.8 [facility] ([facility]) ID Date Data Source [id number] 10/01/2019 08:39:00 PM EDT [facility] ([facility]) Name Value Range Interpretation Code Description Data [place] rce(s) Supporting Document(s) Respiratory Panel Laboratory test result [facility] This respiratory PCR panel detects Influ noelle A H1, H3 and 2009 H1 viruses, Influenza B virus, Resp iratory Syncytial Virus, Human metapneumovirus, Parainfluenza virus 1, 2, 3 and 4, Adenovirus, Rhinovirus/Enterovirus, Coronavirus HKU1, NL63, OC43, 229E and SARS-CoV-2 (COVID 19), Bordetella pertussis, Bordetella parapertussis, Mycoplasma pneumoniae and Chlamydia pneumoniae. NEGATIVE by MULTIPLEXED NUCLEIC ACID PCR SARS-CoV-2 (COVID 19) NEGATIVE - SARS-CoV-2 (COVID19) ID Date Data Source [id number] 08/30/2019 11:38:00 AM EDT [facility] ([facility]) Name Value Range Interpretation Code Description Data [place] rce(s) Supporting Document(s) INR in Platelet poor plasma by Coagulation assay 2.9 [facility] ([facility]) ID Date Data Source [id number] 07/31/2019 04:00:00 PM EDT [facility] ([facility]) Name Value Range Interpretation Code Description Data [place] rce(s) Supporting Document(s) INR in Platelet poor plasma by Coagulation assay 2.7 [facility] ([facility]) ID Date Data Source [id number] 07/31/2019 02:20:00 PM EDT [facility] ([facility]) Name Value Range Interpretation Code Description Data [place] rce(s) Supporting Document(s) Magnesium 2.0 mg/dL 1.8-2.[address] [facility]) ID Date Data Source [id number] 07/31/2019 02:20:00 PM EDT [facility] ([facility]) Name Value Range Interpretation Code Description Data [place] rce(s) Supporting Document(s) Digoxin [Mass/volume] in Serum or Plasma 0.4 ng/mL 0.5-2.[address] [facility] ([facility]) ID Date Data Source [id number] 07/31/2019 02:20:00 PM EDT [facility] ([facility]) Name Value Range Interpretation Code Description Data [place] rce(s) Supporting Document(s) Thyrotropin [Units/volume] in Serum or Plasma by Detec tion limit <= 0.05 mIU/L 3.16 uIU/mL 0.36-3.74 [facility] ([facility] ) ID Date Data Source [id number] 07/31/2019 02:20:00 PM EDT [facility] ([facility]) Name Value Range Interpretation Code Description Data [place] rce(s) Supporting Document(s) Glucose [Mass/volume] in Serum or Plasma 110 mg/dL 74-99 [facility] ([facility]) 100-125 mg/dL PRE-DIABETES/FASTING >126 mg/dL DIABETES/FASTING Urea nitrogen [Mass/volume] in Serum or Plasma 29 mg/dL 7-18 [facility] ([facility]) Potassium [Moles/volume] in Serum or Plasma 4.9 meq/L 3.5-5.1 [facility] ([facility]) Creatinine 1.1 mg/dL 0.6-1.3 [facility] ([facility]) Sodium [Moles/volume] in Serum or Plasma 139 meq/L 136-145 [facility] ([facility]) Chloride [Moles/volume] in Serum or Plasma 101 meq/L 98-107 [facility] ([facility]) Carbon dioxide, total [Moles/volume] in Serum or Plasma 25 meq/L 21 -32 [facility] ([facility]) Glomerular filtration rate/1.73 sq M pre dicted among non-blacks [Volume Rate/Area] in Serum or Plasma by Creatinine-based formula (MDRD) 50 mL/min [facility] ([facility]) Calcium [Mass/volume] in Serum or Plasma 10.5 mg/dL 8.5-10.1 [facility] ([facility]) NOTE: RESULT VERIFIED. Glomerular filtration rate/1.73 sq M pre dicted among blacks [Volume Rate/Area] in Serum or Plasma by Creatinine-based formula (MDRD) Laboratory test result [facility] ([facility]) <content>CHRONIC KIDNEY DISEASE STAGING PER NKF</content>
<content></content>
<content>STAGE I & II GFR >= 60 NORMAL TO MILDLY DECREASED</content>
<content>STAGE III GFR 30-59 MODERATELY DECREASED</content>
<content>STAGE IV GFR 15-29 SEVERELY DECREASED</content>
<content>STAGE V GFR <15 VERY LITTLE GFR LEFT</content>
<content>ESRD GFR <15 ON RUBBER MOLD MAKER</content>
<content></content> ID Date Data Source [id number] 07/31/2019 08:05:00 AM EDT [facility] ([facility]) Name Value Range Interpretation Code Description Data [place] rce(s) Supporting Document(s) Glucose 110 74-106 [facility] Creatinine 1.1 0.6-1.3 [facility] ([facility]) Blood Urea Nitrogen 29 7-18 [facility] ([facility]) Sodium 139 136-145 [facility] Potassium 4.9 3.5-5.1 [facility] ([facility] Carbon Dioxide 25 21-32 [facility] ([facility]) Chloride 101 98-107 [facility] ([facility]) Glomerular filtration rate/1.73 sq M.pre dicted [Volume Rate/Area] in Serum or Plasma by Creatinine-based formula (MDRD) 50 [facility] ([facility]) Calcium 10.5 8.5-10.1 [facility] ([facility] ID Date Data Source [id number] 07/23/2019 02:36:00 PM EDT [facility] ([facility]) Name Value Range Interpretation Code Description Data [place] rce(s) Supporting Document(s) INR in Platelet poor plasma by Coagulation assay 3.4 [facility] ([facility]) ID Date Data Source [id number] 07/16/2019 02:08:00 PM EDT [facility] ([facility]) Name Value Range Interpretation Code Description Data [place] rce(s) Supporting Document(s) INR in Platelet poor plasma by Coagulation assay 2.[address] [facility] ([facility]) ID Date Data Source [id number] [facility] Name Value Range Interpretation Code Description Data [place] rce(s) Supporting Document(s) INR in Platelet poor plasma by Coagulation assay 1.[address] [facility] ID Date Data Source [id number] [facility]2019 [facility]:59[facility] Name Value Range Interpretation Code Description Data [place] rce(s) Supporting Document(s) C reactive protein [Mass/volume] in Serum or Plasma by High sensitivity method Laboratory test result 0.00-0.30 [facility] ID Date Data Source [id number] 06/27/2019 10:59:00 AM [facility] ([facility]) Name Value Range Interpretation Code Description Data [place] rce(s) Supporting Document(s) Glucose, Fasting 91 mg/dL 70-[address] [facility] ([facility]) Creatinine For GFR 0.64 mg/dL 0.55-1.[address] [facility] ([facility]) Blood Urea Nitrogen 16 mg/dL 7-[address] [facility] ([facility]) Glomerular Filtration Rate Laboratory test result [facility] ([facility]) <content>Units are mL/min/1.73 m2</content>
<content></content>
<content>Chronic Kidney Disease Staging per NKF:</content>
<content></content>
<content>Stage I & II GFR >=60 Normal to Mildly Decreased</content>
<content>Stage III GFR 30- 59 Moderately Decreased</content>
<content>Stage IV GFR 15-29 Severely Decreased</content>
<content>Stage V GFR <15 Very Little GFR Left</content>
<content>ESRD GFR <15 on RUBBER MOLD MAKER</content>
<content></content> Sodium Level 142 meq/L 136-145 [facility] ([facility]) Potassium Serum 4.7 meq/L 3.5-5.1 [facility] ([facility]) Carbon Dioxide Level 26 meq/L 21-32 [facility] Chloride Level 108 meq/L 98-107 [facility] ([facility]) Anion Gap 8 meq/L 8-16 [facility]) Calcium Level 9.8 mg/dL 8.8-10.2 [facility] ([facility]) ID Date Data Source [id number] 06/27/2019 10:59:00 AM EDT [facility] ([facility]) Name Value Range Interpretation Code Description Data [place] rce(s) Supporting Document(s) Erythrocyte sedimentation rate by Westergren method 78 mm/hr 0-30 [facility] ([facility]) ID Date Data Source [id number] 06/27/2019 10:59:00 AM EDT [facility] ([facility]) Name Value Range Interpretation Code Description Data [place] rce(s) Supporting Document(s) Red Blood Count 3.74 10 4.00-5.40 [facility] ([facility]) Hemoglobin 12.1 g/dL 12.0-15.5 [facility] ([facility]) White Blood Count 5.4 10 4.0-10.0 [facility] ([facility]) Mean Corpuscular Volume 102.7 fl 80.0-96.0 [facility] ([facility]) Mean Corpuscular HGB Conc 31.5 g/dL 32.0-36.5 [facility] ([facility]) Mean Corpuscular Hemoglobin 32.4 pg 27.0-33.0 [facility] ([facility]) Hematocrit 38.4 % 36.0-47.0 [facility] ([facility]) Neutrophils % 66.1 % 36.0-66.0 [facility] ([facility]) Platelet Count, Automated 204 10 150-450 [facility] ([facility]) Red Cell Distribution Width 13.4 % 11.5-14.5 [place] [facility] ([facility]) Baso % 0.4 % 0.0-1.0 [facility]) [place] % 7.7 % 0.0-5.0 [facility]) Eos % 2.2 % 0.0-3.0 [facility]) Lymph % 23.2 % 24.0-44.0 [facility]) Nucleated Red Blood Cell % 0.0 % 0-0 [facility] ([facility]) Immature Granulocyte % 0.4 % 0-3.0 [facility] ([facility]) Neutrophils # 3.5 10 1.5-8.5 [facility] ([facility]) Eos # 0.1 10 0.0-0.5 [facility]) Lymph # 1.2 10 1.5-5.0 [facility]) [place] # 0.4 10 0.0-0.8 [facility]) Baso # 0.0 10 0.0-0.2 [facility] ([facility]) ID Date Data Source [id number] 06/27/2019 10:59:00 AM EDT [facility] ([facility]) Name Value Range Interpretation Code Description Data [place] rce(s) Supporting Document(s) aPTT in Blood by Coagulation assay 43.9 s 25.0-38.4 [facility] ([facility]) ID Date Data Source [id number] 06/27/2019 10:59:00 AM EDT [facility] ([facility]) Name Value Range Interpretation Code Description Data [place] rce(s) Supporting Document(s) Inr 3.68 [facility] ([facility]) THERAPUTIC HUMAN INR VALUES INDICATIONS NORMAL RANGES PROPHYLAXIS/TREATMENT OF: VENOUS THROMBOSIS 2.0-3.0 PULMONARY EMBOLISM 2.0-3.0 PREVENTION OF SYSTEMIC EMBOLISM FROM: TISSUE HEART VALVES 2.0-3.0 ACUTE MYOCARDIAL INFARCTION 2.0-3.0 VALVULAR HEART DISEASE 2.0-3.0 ATRIAL FIBRILLATION 2.0-3.0 MECHANICAL VALVES(HIGH RISK) 2.5-3.5 RECURRENT MYOCARDIAL INFARCTION 2.5-3.5 Prothrombin Time 36.6 s 11.8-14.0 [facility] ([facility]) ID Date Data Source [id number] 06/11/2019 01:54:00 PM EDT [facility] ([facility]) Name Value Range Interpretation Code Description Data [place] rce(s) Supporting Document(s) Natriuretic peptide.B prohormone N-Terminal [Mass/volu me] in Serum or Plasma 388 pg/mL 0-[address] [facility] ([employer] [facility]) <content>The following cut-points have b een suggested for the</content>
<content>use of proBNP for the diagnostic evaluation of heart</content>
<content>failure (HF) in patients with acute dy spnea:</content>
<content>Modality Age Optimal Cut</content>
<content>(years) Point</content>
<content> ---</content>
<content>Diagnosis (rule in HF) <50 450 pg/mL</content>
<content>50 - 75 900 pg/mL</content>
<content>>75 1800 pg/mL</content>
<content> Exclusion (rule out HF) Age independent 300 pg/mL</content>
<content></content> Flecainide [Mass/volume] in Serum or Plasma 0.21 ug/mL 0.20-1.00 [facility] ([facility]) This test was developed and its performa nce characteristics determined by [facility]. It has not been cleared or approved by the Food and Drug Administration. Detection Limit = 0.10 Laboratory test finding (navigational concept) Laboratory test result [facility] ([facility]) ID Date Data Source [id number] 06/13/2019 02:05:00 PM EDT [facility] Name Value Range Interpretation Code Description Data [place] rce(s) Supporting Document(s) NT-proBNP 388 pg/mL 0-287 Above high normal [facility] The following cut-points have been suggested for the use of proBNP for the diagnostic evaluation of heart failure (HF) in patients with acute dyspnea: Modality Age Optimal Cut (years) Point Diagnosis (rule in HF) <50 450 pg/mL 50 - 75 900 pg/mL > 75 1800 pg/mL Exclusion (rule out HF) Age independent 300 pg/mL ID Date Data Source [id number] 06/13/2019 08:05:00 PM EDT [facility] Name Value Range Interpretation Code Description Data [place] rce(s) Supporting Document(s) Flecainide (Tambocor(TM)), S 0.21 ug/mL 0.20-1.00 [facility] This test was developed and its performa nce characteristicsdetermined by [facility]. It has not been cleared or approvedby the Food and Drug Administration. Detection Limit = 0.10 ID Date Data Source [id number] 06/05/2019 11:23:00 AM EST [facility] ([facility]) Name Value Range Interpretation Code Description Data [place] rce(s) Supporting Document(s) INR in Platelet poor plasma by Coagulation assay 2.[address] [facility] ([facility]) ID Date Data Source [id number] 05/22/2019 11:33:00 AM EST [facility] ([facility]) Name Value Range Interpretation Code Description Data [place] rce(s) Supporting Document(s) INR in Platelet poor plasma by Coagulation assay 2.2 [facility] ([facility]) ID Date Data Source [id number] 05/15/2019 11:32:00 AM EST [facility] ([facility]) Name Value Range Interpretation Code Description Data [place] rce(s) Supporting Document(s) INR in Platelet poor plasma by Coagulation assay 1.9 [facility] ([facility]) ID Date Data Source [id number] 05/08/2019 11:31:00 AM EST [facility] ([facility]) Name Value Range Interpretation Code Description Data [place] rce(s) Supporting Document(s) INR in Platelet poor plasma by Coagulation assay 1.7 [facility] ([facility]) ID Date Data Source [id number] 05/01/2019 01:15:00 PM EST [facility] ([facility]) Name Value Range Interpretation Code Description Data [place] rce(s) Supporting Document(s) INR in Platelet poor plasma by Coagulation assay 1.8 [facility] ([facility]) ID Date Data Source [id number] 04/24/2019 11:41:00 AM EST [facility] ([facility]) Name Value Range Interpretation Code Description Data [place] rce(s) Supporting Document(s) Thyrotropin [Units/volume] in Serum or Plasma by Detec tion limit <= 0.05 mIU/L 1.37 uIU/mL 0.36-3.74 [facility] ([facility] ) Thyroxine (T4) free [Mass/volume] in Serum or Plasma 1.32 ng/dL 0.76- 1.46 [facility] ([facility]) ID Date Data Source [id number] 04/24/2019 11:41:00 AM EST [facility] ([facility]) Name Value Range Interpretation Code Description Data [place] rce(s) Supporting Document(s) Triglyceride [Mass/volume] in Serum or Plasma 63 mg/dL 30-150 [facility] ([facility]) Cholesterol [Mass/volume] in Serum or Plasma 130 mg/dL 131-200 [facility] ([facility]) Cholesterol in LDL [Mass/volume] in Serum or Plasma by calcu lation 59 CALC 50-159 [facility] ([facility]) Cholesterol in HDL [Mass/volume] in Serum or Plasma 58 mg/dL 35-60 [facility] ([facility]) ID Date Data Source [id number] 04/24/2019 11:41:00 AM EST [facility] ([facility]) Name Value Range Interpretation Code Description Data [place] rce(s) Supporting Document(s) Magnesium 2.1 mg/dL 1.8-2.4 [facility]) ID Date Data Source [id number] 04/24/2019 11:41:00 AM EST [facility] ([facility]) Name Value Range Interpretation Code Description Data [place] rce(s) Supporting Document(s) Glucose [Mass/volume] in Serum or Plasma 90 mg/dL 74-99 [facility] ([facility]) 100-125 mg/dL PRE-DIABETES/FASTING >126 mg/dL DIABETES/FASTING Creatinine 0.8 mg/dL 0.6-1.3 [facility] ([facility]) Urea nitrogen [Mass/volume] in Serum or Plasma 17 mg/dL 7-18 [facility] ([facility]) Carbon dioxide, total [Moles/volume] in Serum or Plasma 28 meq/L 21 -32 [facility] ([facility]) Chloride [Moles/volume] in Serum or Plasma 104 meq/L 98-107 [facility] ([facility]) Sodium [Moles/volume] in Serum or Plasma 142 meq/L 136-145 [facility] ([facility]) Potassium [Moles/volume] in Serum or Plasma 4.9 meq/L 3.5-5.1 [facility] ([facility]) Calcium [Mass/volume] in Serum or Plasma 10.7 mg/dL 8.5-10.1 [facility] ([facility]) NOTE: RESULT VERIFIED. Total Bilirubin 0.5 mg/dL 0.2-1.0 [facility] ([facility]) Alkaline phosphatase isoenzyme [Units/volume] in Serum or Pl asma 82 mg/dL 46-116 [facility] ([facility]) Aspartate aminotransferase [Enzymatic activity/volume] in Serum or Plasma 23 U/L 15-37 [facility] ([facility] ) Albumin [Mass/volume] in Serum or Plasma 3.3 g/dL 3.4-5.0 [facility] ([facility]) NOTE: RESULT VERIFIED. Alanine aminotransferase [Enzymatic activity/volume] in Seru m or Plasma 20 U/L 12-78 [facility] ([facility]) Glomerular filtration rate/1.73 sq M pre dicted among blacks [Volume Rate/Area] in Serum or Plasma by Creatinine-based formula (MDRD) Laboratory test result [facility] ([facility]) <content>CHRONIC KIDNEY DISEASE STAGING PER NKF</content>
<content></content>
<content>STAGE I & II GFR >= 60 NORMAL TO MILDLY DECREASED</content>
<content>STAGE III GFR 30-59 MODERATELY DECREASED</content>
<content>STAGE IV GFR 15-29 SEVERELY DECREASED</content>
<content>STAGE V GFR <15 VERY LITTLE GFR LEFT</content>
<content>ESRD GFR <15 ON RUBBER MOLD MAKER</content>
<content></content> Glomerular filtration rate/1.73 sq M pre dicted among non-blacks [Volume Rate/Area] in Serum or Plasma by Creatinine-based formula (MDRD) Laboratory test result [facility] ([facility] ) Proteinase 3 Ab [Units/volume] in Serum 8.3 g/dL 6.4-8.[address] [facility] ([facility]) NOTE: RESULT VERIFIED. A/G Ratio 0.66 CALC 1.00-1.90 [facility] ([facility]) ID Date Data Source [id number] 04/24/2019 11:40:00 AM EST [facility] ([facility] Name Value Range Interpretation Code Description Data [place] rce(s) Supporting Document(s) Parathyrin.intact [Mass/volume] in Serum or Plasma 26.6 pg/mL 18.5-88 .0 [facility] ([facility]) ID Date Data Source [id number] 04/24/2019 11:40:00 AM EST [facility] ([facility] Name Value Range Interpretation Code Description Data [place] rce(s) Supporting Document(s) Calcidiol [Mass/volume] in Serum or Plasma 33.5 24.0-80.[address] [facility] ([facility]) This test was performed using [employer] I P Vitamin D immunoassay kit. Values obtained with different assay methods should not be used interchangeably. ID Date Data Source [id number] 04/24/2019 10:40:00 AM EST [facility] ([facility] Name Value Range Interpretation Code Description Data [place] rce(s) Supporting Document(s) INR in Platelet poor plasma by Coagulation assay 3.[address] [facility] ([facility]) ID Date Data Source [id number] 04/16/2019 11:19:00 AM EST [facility] ([facility] Name Value Range Interpretation Code Description Data [place] rce(s) Supporting Document(s) INR in Platelet poor plasma by Coagulation assay 3.[address] [facility] ([facility]) ID Date Data Source [id number] 04/02/2019 02:33:00 PM EST [facility] ([facility]) Name Value Range Interpretation Code Description Data [place] rce(s) Supporting Document(s) INR in Platelet poor plasma by Coagulation assay 1.6 [facility] ([facility]) Procedure Vital Signs ID Date Data Source UNK Name Value Range Interpretation Code Description Data Source(s) Body mass index (BMI) [Ratio] 35.7 kg/m2 35.7 k g/m2 [facility] ([facility]) Body weight 221.00 [lb_av] 221.00 [lb_av] [facility] T ([facility]) Body height 66 [in_i] 66 [in_i] [facility] ([facility]) 5'6" Heart rate 60 /min 60 /min [facility] ([facility]) Diastolic blood pressure 70 mm[Hg] 70 mm[Hg] [facility] ([facility]) RT Arm Systolic blood pressure 148 mm[Hg] 148 mm[Hg] [facility] ([facility]) RT Arm Body weight 226.00 [lb_av] 226.00 [lb_av] [facility]) Body mass index (BMI) [Ratio] 36.5 kg/m2 36.5 k g/m2 [facility] ([facility]) Body weight 226.00 [lb_av] 226.00 [lb_av] [facility] ([facility]) Body height 66 [in_i] 66 [in_i] [facility] ([facility]) 5'6" Diastolic blood pressure 90 mm[Hg] 90 mm[Hg] [facility] ([facility]) Systolic blood pressure 138 mm[Hg] 138 mm[Hg] [facility] ([facility]) Body weight 217.00 [lb_av] 217.00 [lb_av] [facility] T ([facility]) Body weight 220.00 [lb_av] 220.00 [lb_av] [facility] T ([facility]) Body weight 216.00 [lb_av] 216.00 [lb_av] [facility] T ([facility]) Body weight 222.00 [lb_av] 222.00 [lb_av] [facility] T ([facility]) Body mass index (BMI) [Ratio] 37.6 kg/m2 37.6 k g/m2 [facility] ([facility]) Body weight 222.50 [lb_av] 222.50 [lb_av] [facility] T ([facility]) Body height 64.50 [in_i] 64.50 [in_i] [facility] ([facility]) 5'4.50" Heart rate 76 /min 76 /min [facility] ([facility]) Diastolic blood pressure 90 mm[Hg] 90 mm[Hg] [facility] ([facility]) LT Arm Systolic blood pressure 132 mm[Hg] 132 mm[Hg] [facility] ([facility]) LT Arm Diastolic blood pressure--sitting 74 mm[Hg] 74 mm[Hg] [facility] ([facility]) large cuff, Ra Systolic blood pressure--sitting 126 mm[Hg] 126 mm[Hg] [facility] ([facility]) large cuff, Ra Heart rate 67 /min 67 /min [facility] ([facility]) Body mass index (BMI) [Ratio] 38.1 kg/m2 38.1 k g/m2 [facility] ([facility]) Body height 65 [in_i] 65 [in_i] [facility] ([facility]) 5'5" Body weight 229.00 [lb_av] 229.00 [lb_av] MED T ([facility]) Oxygen saturation in Arterial blood by Pulse oximetry 98 % 98 % [facility] ([facility]) Body weight 231.00 [lb_av] 231.00 [lb_av] MED T ([facility]) Heart rate 69 /min 69 /min [facility] ([facility]) Diastolic blood pressure 72 mm[Hg] 72 mm[Hg] [facility] ([facility]) Systolic blood pressure 138 mm[Hg] 138 mm[Hg] [facility] ([facility]) Body weight 231.00 [lb_av] 231.00 [lb_av] MED T ([facility]) Body mass index (BMI) [Ratio] 38.4 kg/m2 38.4 k g/m2 [facility] ([facility]) Body weight 227.12 [lb_av] 227.12 [lb_av] [facility] T ([facility]) Body height 64.50 [in_i] 64.50 [in_i] [facility] ([facility]) 5'4.50" Heart rate 68 /min 68 /min [facility] ([facility]) Diastolic blood pressure 56 mm[Hg] 56 mm[Hg] [facility] ([facility]) RT Arm Systolic blood pressure 114 mm[Hg] 114 mm[Hg] [facility] RT Arm Body mass index (BMI) [Ratio] 38.5 kg/m2 38.5 k g/m2 [facility] ([facility]) Body weight 228.00 [lb_av] 228.00 [lb_av] [facility] T ([facility]) Body height 64.50 [in_i] 64.50 [in_i] [facility] ([facility]) 5'4.50" Body mass index (BMI) [Ratio] 39.3 kg/m2 39.3 k g/m2 [facility] ([facility]) Body weight 232.38 [lb_av] 232.38 [lb_av] [facility] T ([facility]) Body height 64.50 [in_i] 64.50 [in_i] [facility] ([facility]) 5'4.50" Heart rate 56 /min 56 /min [facility] ([facility]) Diastolic blood pressure 80 mm[Hg] 80 mm[Hg] [facility] ([facility]) RT Arm Systolic blood pressure 122 mm[Hg] 122 mm[Hg] [facility] RT Arm Diastolic blood pressure--supine 78 mm[Hg] 78 mm[Hg] [facility] ([facility]) Systolic blood pressure--supine 144 mm[Hg] 144 mm[Hg] [facility] ([facility]) Diastolic blood pressure--sitting 76 mm[Hg] 76 mm[Hg] [facility] ([facility]) large cuff, Ra Systolic blood pressure--sitting 142 mm[Hg] 142 mm[Hg] [facility] ([facility]) large cuff, Ra Respiratory rate 18 /min 18 /min [facility] ( [facility]) Heart rate 66 /min 66 /min [facility] ([facility]) regular with occasional irregularity Body mass index (BMI) [Ratio] 38.1 kg/m2 38.1 k g/m2 [facility] ([facility]) Body height 65 [in_i] 65 [in_i] [facility] ([facility]) 5'5" Body weight 229.00 [lb_av] 229.00 [lb_av] [facility] T ([facility]) Body weight 229.00 [lb_av] 229.00 [lb_av] [facility] T ([facility]) Body weight 227.00 [lb_av] 227.00 [lb_av] [facility] T ([facility]) Body weight 231.00 [lb_av] 231.00 [lb_av] [facility] T ([facility]) Heart rate 66 /min 66 /min [facility] ([facility]) Diastolic blood pressure 80 mm[Hg] 80 mm[Hg] [facility] ([facility]) Systolic blood pressure 122 mm[Hg] 122 mm[Hg] M [facility]ENT ([facility]) Body weight 233.00 [lb_av] 233.00 [lb_av] [facility] T ([facility])
[2020-05-26] MEDS ORDERED: BUPR150T4 PO (11:42)
--- OUTSIDE RECORDS SUMMARY | 2020-05-26 11:43 | CCD ---
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 Name Role Phone Shirin, Chinyere HEEL DIPPER Unavailable Unavailable Shirin, Chinyere HEEL DIPPER Unavailable Unavailable Shirin, Chinyere HEEL DIPPER Unavailable Unavailable Shirin, Chinyere HEEL DIPPER Unavailable Unavailable Shirin, Chinyere HEEL DIPPER Unavailable Unavailable Shirin, Chinyere HEEL DIPPER Unavailable Unavailable Shirin, Chinyere HEEL DIPPER Unavailable Unavailable Shirin, Chinyere HEEL DIPPER Unavailable Unavailable Shirin, Chinyere HEEL DIPPER Unavailable Unavailable Shirin, Chinyere HEEL DIPPER Unavailable Unavailable Shirin, Chinyere HEEL DIPPER Unavailable Unavailable Shirin, Chinyere HEEL DIPPER Unavailable Unavailable Shirin, Chinyere HEEL DIPPER Unavailable Unavailable Shirin, Chinyere HEEL DIPPER Unavailable Unavailable Shirin, Chinyere HEEL DIPPER Unavailable Unavailable Shirin, Chinyere HEEL DIPPER Unavailable Unavailable Shirin, Chinyere HEEL DIPPER Unavailable Unavailable Shirin, Chinyere HEEL DIPPER Unavailable Unavailable Shirin, Chinyere HEEL DIPPER Unavailable Unavailable Shirin, Chinyere HEEL DIPPER Unavailable Unavailable Shirin, Chinyere HEEL DIPPER Unavailable Unavailable Shirin, Chinyere HEEL DIPPER Unavailable Unavailable Shirin, Chinyere HEEL DIPPER Unavailable Unavailable Shirin, Chinyere HEEL DIPPER Unavailable Unavailable Shirin, Chinyere HEEL DIPPER Unavailable Unavailable Shirin, Chinyere HEEL DIPPER Unavailable Unavailable Shirin, Chinyere HEEL DIPPER Unavailable Unavailable David Sprague MD Unavailable Unavailable David Sprague MD Unavailable Unavailable David Sprague MD Unavailable Unavailable David Sprague MD Unavailable Unavailable David Sprague MD Unavailable Unavailable DarcieDavid carpio MD Unavailable Unavailable DarcieDavid carpio MD Unavailable Unavailable DarcieDavid carpio MD Unavailable Unavailable DarcieDavid MD Unavailable Unavailable DarcieDavid MD Unavailable Unavailable DarcieDavid MD Unavailable Unavailable DarcieDavid MD Unavailable Unavailable David Sprague MD Unavailable Unavailable DarcieDavid buitrago MD Unavailable Unavailable David Sprague MD Unavailable Unavailable DarcieDavid MD Unavailable Unavailable DarcieDavid MD Unavailable Unavailable DarcieDavid MD Unavailable Unavailable David Sprague MD Unavailable Unavailable DarcieDavid MD Unavailable Unavailable DarcieDavid buitrago MD Unavailable Unavailable DarcieDavid MD Unavailable Unavailable DacrieDavid buitrago MD Unavailable Unavailable DarcieDavid buitrago MD Unavailable Unavailable David Sprague MD Unavailable [...] Unavailable Dania LUTHER MD Unavailable Unavailable Dania LUHTER MD Unavailable Unavailable Dania LUTHER MD Unavailable [...] Unavailable Unavailable LUTHERDania Diaz MD Unavailable Unavailable LUTHERDanai Diaz MD Unavailable Unavailable LUTHERDania Diaz MD Unavailable Unavailable LUTHERDania MD Unavailable Unavailable LUTHERDania Diaz MD Unavailable [...] LUTHERDania Diaz MD Unavailable Unavailable Bennett, Glenna HEEL DIPPER Unavailable Unavailable Bennett, Glenna HEEL DIPPER Unavailable Unavailable Bennett, Glenna HEEL DIPPER Unavailable Unavailable Bennett, Glenna HEEL DIPPER Unavailable Unavailable Bennett, Glenna HEEL DIPPER Unavailable Unavailable Bennett, Glenna HEEL DIPPER Unavailable Unavailable Bennett, Glenna HEEL DIPPER Unavailable Unavailable Bennett, Glenna HEEL DIPPER Unavailable Unavailable Bennett, Glenna HEEL DIPPER Unavailable Unavailable Bennett, Glenna HEEL DIPPER Unavailable Unavailable Bennett, Glenna HEEL DIPPER Unavailable Unavailable Bennett, Glenna HEEL DIPPER Unavailable Unavailable Bennett, Glenna HEEL DIPPER Unavailable Unavailable Bennett, Glenna HEEL DIPPER Unavailable Unavailable Bennett, Glenna HEEL DIPPER Unavailable Unavailable Bennett, Glenna HEEL DIPPER Unavailable Unavailable Bennett, Glenna HEEL DIPPER Unavailable Unavailable Bennett, Glenna HEEL DIPPER Unavailable Unavailable Bennett, Glenna HEEL DIPPER Unavailable Unavailable Bennett, Glenna HEEL DIPPER Unavailable Unavailable Bennett, Glenna HEEL DIPPER Unavailable Unavailable Bennett, Glenna HEEL DIPPER Unavailable Unavailable Bennett, Glenna HEEL DIPPER Unavailable Unavailable Bennett, Glenna HEEL DIPPER Unavailable Unavailable Bennett, Glenna HEEL DIPPER Unavailable Unavailable Bennett, Glenna HEEL DIPPER Unavailable Unavailable Bennett, Glenna HEEL DIPPER Unavailable Unavailable Bennett, Glenna HEEL DIPPER Unavailable Unavailable Bennett, Glenna HEEL DIPPER Unavailable Unavailable Bennett, Glenna HEEL DIPPER Unavailable Unavailable Bennett, Glenna HEEL DIPPER Unavailable Unavailable Bennett, Glenna HEEL DIPPER Unavailable Unavailable Bennett, Glenna HEEL DIPPER Unavailable Unavailable Bennett, Glenna HEEL DIPPER Unavailable Unavailable Bennett, Glenna HEEL DIPPER Unavailable Unavailable Bennett, Glenna HEEL DIPPER Unavailable Unavailable Bennett, Glenna HEEL DIPPER Unavailable Unavailable Bennett, Glenna HEEL DIPPER Unavailable Unavailable Bennett, Glenna HEEL DIPPER Unavailable Unavailable Bennett, Glenna HEEL DIPPER Unavailable Unavailable Bennett, Glenna HEEL DIPPER Unavailable Unavailable Bennett, Glenna HEEL DIPPER Unavailable Unavailable Bennett, Glenna HEEL DIPPER Unavailable Unavailable Bennett, Glenna HEEL DIPPER Unavailable Unavailable Bennett, Glenna HEEL DIPPER Unavailable Unavailable Bennett, Glenna HEEL DIPPER Unavailable Unavailable Bennett, Glenna HEEL DIPPER Unavailable Unavailable Bennett, Glenna HEEL DIPPER Unavailable Unavailable Bennett, Glenna HEEL DIPPER Unavailable Unavailable Bennett, Glenna HEEL DIPPER Unavailable Unavailable Bennett, Glenna HEEL DIPPER Unavailable Unavailable Bennett, Glenna HEEL DIPPER Unavailable Unavailable Bennett, Glenna HEEL DIPPER Unavailable Unavailable Re-disclosure Warning The records that [...] is protected by Article 27-F of the [facility] Public Health law. If you continue you may have access to information: Regarding HIV / AIDS; Provided by facilities licensed or operated by the [facility] Office of Mental Health; or Provided by the [facility] Office for People With Developmental Disabilities. If such information is present, then the following [facility] mandated warning applies: This information has [...] law may result in a fine or intermediate sentence or both. A general authorization for the release of medical or other information is NOT sufficient authorization for further disc losure. Family History Family Member Name Family Member Gender Family Member Status Date o f Status Description Data Source(s) Unknown Male Problem [facility] ([facility] ) Unknown Male Problem [facility] ([facility]) Encounters Encounter Providers Location Date Indications Data Source(s ) Outpatient Attender: Zehra French 12:00:00 PM EST [facility] ([facility] ) Outpatient Attender: Zehra French 10:30:00 AM EDT [facility] ([facility] ) Outpatient Attender: Chinyere French 10:00:00 AM EDT [facility] ([facility] ) Outpatient Attender: Crys NGUYEN Main Office 09/06/2019 12:45:0 0 PM EDT [facility] ([facility]) Outpatient Attender: Zehra French 11:00:00 AM EDT [facility] ([facility] ) Outpatient Attender: Jean Carlos Mcginnis MD Physical Therapy 08/06/2019 0 4:00:00 PM EDT [facility] ([facility]) Outpatient Attender: Zehra French 02:30:00 PM EDT [facility] ([facility] ) Outpatient Attender: Zehra French 09:00:00 AM EDT [facility] ([facility] ) Outpatient Attender: DESI LUTHER MD Main Office 06/11/2019 12:45:00 PM EDT [facility] ([facility]) Outpatient Attender: Glenna Guajardo HEEL DIPPER Huyen French 0 04/24/2019 09:30:00 AM EST [facility] ([facility] ) Immunizations Vaccine Date Status Description Data Source(s) Influenza, injectable, MDCK, preservative free, mima valent 01/17/2020 12:10:00 PM EDT completed [facility]) Shingrix Zoster Vaccine (HZV), Recombinant, Subunit, A djuvanted 05/29/2019 12:55:00 PM EST completed [facility] ([facility]) VARICELLA-ZOSTER VIRUS GLYCOPROTEIN E,REC/AS01B ADJUVA NT/PF 05/29/2019 [...] 12:00:00 AM EST ORAL a ctive [facility] ([facility]) 5 mg 03/15/2020 12:00:00 AM EST [...] Vaccine 01/17/2020 12:00:00 AM EDT completed [facility]) Medication administered onsite 20 mg 11/07/2019 12:00:00 [...] 08/31/2019 12:00:00 AM EDT ORAL active [facility] ([facility]) 20 mg 07/24/2019 12:00:00 AM [...] TABLET BY MOUTH EVERY DAY SOLD: 07/05/2019 [facility] Digoxin 0.25 MG Oral Tablet 250 mcg (0.25 mg) DIGOXIN 07/05/2019 12:00:00 AM EDT tablet 90 TAKE ONE TABLET BY MOUTH JOAN DAY TAKE ONE TABLET BY MOUTH EVERY DAY SOLD: 11/20/2019 [facility] Methimazole 5 MG Oral Tablet Methimazole 07/02/2019 12:00:00 AM EDT ORAL completed [facility] ([facility]) 5 mg 07/02/2019 12:00:00 AM EDT tablet 40 TAKE 1 TABLET BY MOUTH DAILY EXCEPT TUESDAY, TUESDAY & TUESDAY TAKE 2 TABLETS TAKE 1 TABLET BY MOUTH DAILY EXCEPT TUESDAY, TUESDAY & TUESDAY TAKE 2 TABLETS SOLD: 07/04/2019 [facility] Methimazole 5 MG Oral Tablet Methimazole 07/02/2019 12:00:00 AM EDT ORAL active [facility] ([facility]) Hydrochlorothiazide 25 MG Oral Tablet Hydrochlorothiazide 12:00:00 AM EDT ORAL completed [facility] ([facility]) 25 mg 07/02/2019 12:00:00 AM EDT tablet 30 TAKE ONE TABLET BY MOUTH EVERY DAY TAKE ONE TABLET BY MOUTH EVERY DAY SOLD: 07/04/2019 [facility] Shingrix Shingrix 05/23/2019 12:00:00 AM EST activ e [facility] ([facility]) Digoxin 0.25 MG Oral Tablet [Digox] Digox 04/29/2019 12:00:00 AM EST ORAL active [facility] ([facility]) 5 mg 04/26/2019 12:00:00 AM EST tablet [...] BY MOUTH TWICE A DAY SOLD: 01/26/2020 [facility] 25 mg 02/22/2019 12:00:00 AM EST [...] TUESDAY, TUESDAY, TUESDAY AND TUESDAY SOLD: 05/22/2019 [facility] Insurance Providers Payer name Policy type / Coverage type Policy ID Covered constitution party ID Covered constitution party's relationship to vogel Policy Vogel Plan Information MEDICARE [id number] SP [id number] R49 FOR LIFE [id number] [facility] [id number] MEDICARE C [id number] S [id number] R49 FOR LIFE O [id number] S [id number] WPS For Life Medigap Part B [id number] Family Depende nt [id number] Medicare Natl Govt Servic Medicare Primary [id number] Self [id number] [place] [facility] [place]) Medigap Part B [id number] Family Dep endent [id number] [place] Primary [id number] Self [id number] [place] [facility] [place]) Medigap Part B [id number] Family Dep endent [id number] [place] Primary [id number] Self [id number] WPS For Life Medigap Part B [id number] Family Depende nt [id number] Medicare Natl Govt Servic Medicare Primary [id number] Self [id number] [place] [facility] [place] Medigap Part B [id number] Family Dep endent [id number] [place] Primary [id number] Self [id number] WPS For Life Medigap Part B [id number] Family Depende nt [id number] Medicare Natl Govt Servic Medicare Primary [id number] Self [id number] WPS For Life Medigap Part B [id number] Family Depende nt [id number] Medicare Natl Govt Servic Medicare Primary [id number] Self [id number] WPS For Life Medigap Part B [id number] Family Depende nt [id number] Medicare Natl Govt Servic Medicare Primary [id number] Self [id number] WPS For Life Medigap Part B [id number] Family Depende nt [id number] Medicare Natl Govt Servic Medicare Primary [id number] Self [id number] WPS For Life Medigap Part B [id number] Family Depende nt [id number] Medicare Natl Govt Servic Medicare Primary [id number] Self [id number] WPS For Life Medigap Part B [id number] Family Depende nt [id number] Medicare Natl Govt Servic Medicare Primary [id number] Self [id number] WPS For Life Medigap Part B [id number] Family Depende nt [id number] Medicare Natl Govt Servic Medicare Primary [id number] Self [id number] MEDICARE [id number] SP [id number] A MEDICARE C [id number] S [id number] A [facility] C [id number] S [id number] WPS For Life Medigap Part B [id number] Family Depende nt [id number] Medicare Natl Govt Servic Medicare Primary [id number] Self [id number] WPS For Life Medigap Part B [id number] Family Depende nt [id number] Medicare Natl Govt Servic Medicare Primary [id number] Self [id number] WPS For Life Medigap Part B [id number] Family Depende nt [id number] Medicare Natl Govt Servic Medicare Primary [id number] Self [id number] WPS For Life Medigap Part B [id number] Family Depende nt [id number] Medicare Natl Govt Servic Medicare Primary [id number] Self [id number] Problems, Conditions, and Diagnoses Code Display Name Description Problem Type Effective Dates Data Source(s) 76087540 Essential hypertension Essential hypertension Problem 10/15/2019 12:00:00 AM EDT [facility] ([facility] ) [id number] Mitral valve disorder Mitral valve disorder Problem 06/11/2019 12:00:00 AM EDT [facility] ([facility]) [id number] 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 Problem 06/11/2019 12:00:00 AM EDT [facility] ([facility]) [id number] Chronic pulmonary heart disease Chronic pulmonar y heart disease Problem 06/11/2019 12:00:00 AM EDT [facility] ([facility]) [id number] Chronic diastolic heart failure Chronic diastoli c heart failure Problem 06/11/2019 12:00:00 AM EDT [facility] ([facility]) Surgeries/Procedures Procedure Description Date Indications Data Source(s) Brief Emotional/Behav Assessment W/ Scoring Doc Per Standard Inst 01/31/2020 12:00:00 AM EDT [facility] ([facility] ) ECG ROUTINE ECG W/LEAST 12 LDS W/I&R 09/06/2019 12:00: 00 AM EDT [facility] ([facility]) ARTHROCENTESIS ASPIR&/INJECTION MAJOR JT/BURSA 12:00:00 AM EDT [facility] ([facility] ) ARTHROCENTESIS ASPIR&/INJECTION MAJOR JT/BURSA 12:00:00 AM EDT [facility] ([facility]) ARTHROCENTESIS ASPIR&/INJECTION MAJOR JT/BURSA 12:00:00 AM EDT [facility] ([facility] ) ECG ROUTINE ECG W/LEAST 12 LDS W/I&R 06/11/2019 12:00: 00 AM EDT [facility] ([facility]) ECHO TTHRC R-T 2D W/WOM-MODE COMPL SPEC&COLR DOP 05/03 12:00:00 AM EST [facility] ([facility]) Results ID Date Data Source [id number] 05/05/2020 01:39:00 PM [facility] Name Value Range Interpretation Code Description Data Mariposa rce(s) Supporting Document(s) Parathyrin.intact [Mass/volume] in Serum or Plasma 26.3 pg/mL 18.5-88 .0 [facility] ID Date Data Source [id number] 05/05/2020 01:39:00 PM EST [facility] Name Value Range Interpretation Code Description Data Mariposa rce(s) Supporting Document(s) Calcidiol [Mass/volume] in Serum or Plasma 32.7 24.0-80.0 [facility] This test was performed using [employer] I P Vitamin D immunoassay kit. Values obtained with different assay methods should not be used interchangeably. ID Date Data Source [id number] 05/05/2020 01:39:00 PM EST [facility] ([facility]) Name Value Range Interpretation Code Description Data Mariposa rce(s) Supporting Document(s) Thyrotropin [Units/volume] in Serum or Plasma by Detec tion limit <= 0.05 mIU/L 0.54 uIU/mL 0.36-3.74 [facility] ([facility] ) ID Date Data Source [id number] 05/05/2020 01:39:00 PM EST [facility] ([facility]) Name Value Range Interpretation Code Description Data Mariposa rce(s) Supporting Document(s) Glucose [Mass/volume] in Serum or Plasma 98 mg/dL 74-99 [facility] ([facility]) 100-125 mg/dL PRE-DIABETES/FASTING >126 mg/dL DIABETES/FASTING Urea nitrogen [Mass/volume] in Serum or Plasma 49 mg/dL 7-18 [facility] ([facility]) NOTE: BUN,CALCIUM VERIFIED Creatinine 1.2 mg/dL 0.6-1.3 [facility] Sodium [Moles/volume] in Serum or Plasma 142 meq/L 136-145 [facility] ([facility]) Chloride [Moles/volume] in Serum or Plasma 104 meq/L 98-107 [facility] ([facility]) Potassium [Moles/volume] in Serum or Plasma 4.5 meq/L 3.5-5.1 [facility] ([facility]) Carbon dioxide, total [Moles/volume] in Serum or Plasma 23 meq/L 21 -32 [facility] ([facility]) Glomerular filtration rate/1.73 sq M pre dicted among non-blacks [Volume Rate/Area] in Serum or Plasma by Creatinine-based formula (MDRD) 45 mL/min [facility] ([facility]) Calcium [Mass/volume] in Serum or Plasma 10.6 mg/dL 8.5-10.1 [facility] ([facility]) Glomerular filtration rate/1.73 sq M pre dicted among blacks [Volume Rate/Area] in Serum or Plasma by Creatinine-based formula (MDRD) 55 mL/min [facility] ([facility]) <content>CHRONIC KIDNEY DISEASE STAGING PER NKF</content>
<content></content>
<content>STAGE I & II GFR >= 60 NORMAL TO MILDLY DECREASED</content>
<content>STAGE III GFR 30-59 MODERATELY DECREASED</content>
<content>STAGE IV GFR 15-29 SEVERELY DECREASED</content>
<content>STAGE V GFR <15 VERY LITTLE GFR LEFT</content>
<content>ESRD GFR <15 ON TELEPHONE ORDER CLERK</content>
<content></content> ID Date Data Source [id number] 05/05/2020 01:39:00 PM EST [facility] ([facility]) Name Value Range Interpretation Code Description Data Mariposa rce(s) Supporting Document(s) Leukocytes [#/volume] in Blood by Automated count 5.8 x10*3/UL 4.1-10 .9 [facility] ([facility]) Erythrocytes [#/volume] in Blood by Automated count 4.01 x10*6/UL 4.2 0-6.30 [facility] ([facility]) Hemoglobin [Mass/volume] in Blood 13.1 g/dL 12.0-18.0 [facility] ([facility]) Hematocrit [Volume Fraction] of Blood by Automated count 37.5 % 3 7.0-51.0 [facility] ([facility]) MCH 32.6 pg 26.0-32.0 [facility]) MCHC 34.9 g/dL 31.0-38.0 [facility] ([facility]) MCV 93.4 fL 80.0-97.0 [facility] ([facility]) Platelets [#/volume] in Blood by Automated count 191 x10*3/UL 140-440 [facility] ([facility]) MPV 8.6 FL 7.8-11.0 [facility] Erythrocyte distribution width [Ratio] by Automated count 13.8 % 11.6-13.7 [facility] ([facility]) Mid % 6.7 % 1.7-9.3 [facility] Lymph % 24.4 % 10.0-58.5 [facility] ([facility]) Mid # 0.4 x10*3/UL 0.1-0.6 [facility] ([facility]) Neut % 68.9 % 37.0-92.0 [facility] ([facility]) Lymph # 1.4 x10*3/UL 0.6-4.1 [facility] ([facility]) Neut # 4.0 x10*3/UL 2.0-7.8 [facility] ([facility]) ID Date Data Source [id number] 02/14/2020 11:57:00 AM EST [facility] ([facility]) Name Value Range Interpretation Code Description Data Mariposa rce(s) Supporting Document(s) Inr 6.49 Above upper panic limits [facility] THERAPUTIC HUMAN INR VALUES INDICATIONS NORMAL RANGES PROPHYLAXIS/TREATMENT OF: VENOUS THROMBOSIS 2.0-3.0 PULMONARY EMBOLISM 2.0-3.0 PREVENTION OF SYSTEMIC EMBOLISM FROM: TISSUE HEART VALVES 2.0-3.0 ACUTE MYOCARDIAL INFARCTION 2.0-3.0 VALVULAR HEART DISEASE 2.0-3.0 ATRIAL FIBRILLATION 2.0-3.0 MECHANICAL VALVES(HIGH RISK) 2.5-3.5 RECURRENT MYOCARDIAL INFARCTION 2.5-3.5 Prothrombin Time 58.4 s 12.5-14.3 [facility] ([facility]) ID Date Data Source [id number] 02/14/2020 11:56:00 AM EST [facility] ([facility]) Name Value Range Interpretation Code Description Data Mariposa rce(s) Supporting Document(s) Leukocytes [#/volume] in Blood by Automated count 6.0 x10*3/UL 4.1-10 .9 [facility] ([facility]) Hemoglobin [Mass/volume] in Blood 13.0 g/dL 12.0-18.0 [facility] ([facility]) Hematocrit [Volume Fraction] of Blood by Automated count 37.5 % 3 7.0-51.0 [facility] ([facility]) Erythrocytes [#/volume] in Blood by Automated count 4.11 x10*6/UL 4.2 0-6.30 [facility] ([facility]) MCV 91.1 fL 80.0-97.0 [facility] MCH 31.6 pg 26.0-32.0 [facility]) MCHC 34.7 g/dL 31.0-38.0 [facility] ([facility]) Platelets [#/volume] in Blood by Automated count 243 x10*3/UL 140-440 [facility] ([facility]) MPV 8.3 FL 7.8-11.0 [facility] ([facility]) Erythrocyte distribution width [Ratio] by Automated count 14.2 % 11.6-13.7 [facility] ([facility]) Lymph % 21.2 % 10.0-58.5 [facility] Mid % 5.8 % 1.7-9.3 [facility] ([facility]) Neut % 73.0 % 37.0-92.0 [facility] ([facility]) Neut # 4.4 x10*3/UL 2.0-7.8 [facility] ([facility]) Lymph # 1.2 x10*3/UL 0.6-4.1 [facility] ([facility]) Mid # 0.4 x10*3/UL 0.1-0.6 [facility] ([facility]) ID Date Data Source [id number] 02/14/2020 11:29:00 AM EST [facility] ([facility]) Name Value Range Interpretation Code Description Data Mariposa rce(s) Supporting Document(s) INR in Platelet poor plasma by Coagulation assay 7.9 [facility] ID Date Data Source [id number] 02/14/2020 10:58:00 AM EST [facility] ([facility]) Name Value Range Interpretation Code Description Data Mariposa rce(s) Supporting Document(s) Glucose [Mass/volume] in Serum or Plasma 100 mg/dL 74-99 [facility] ([facility]) 100-125 mg/dL PRE-DIABETES/FASTING >126 mg/dL DIABETES/FASTING Urea nitrogen [Mass/volume] in Serum or Plasma 17 mg/dL 7-18 [facility] ([facility]) Creatinine 0.7 mg/dL 0.6-1.3 [facility] Sodium [Moles/volume] in Serum or Plasma 141 meq/L 136-145 [facility] ([facility]) Carbon dioxide, total [Moles/volume] in Serum or Plasma 24 meq/L 21 -32 [facility] ([facility]) Potassium [Moles/volume] in Serum or Plasma 4.4 meq/L 3.5-5.1 [facility] Chloride [Moles/volume] in Serum or Plasma 103 meq/L 98-107 [facility] ([facility]) Glomerular filtration rate/1.73 sq M pre dicted among non-blacks [Volume Rate/Area] in Serum or Plasma by Creatinine-based formula (MDRD) Laboratory test result [facility] Glomerular filtration rate/1.73 sq M pre dicted among blacks [Volume Rate/Area] in Serum or Plasma by Creatinine-based formula (MDRD) Laboratory test result [facility] ([facility]) <content>CHRONIC KIDNEY DISEASE STAGING PER NKF</content>
<content></content>
<content>STAGE I & II GFR >= 60 NORMAL TO MILDLY DECREASED</content>
<content>STAGE III GFR 30-59 MODERATELY DECREASED</content>
<content>STAGE IV GFR 15-29 SEVERELY DECREASED</content>
<content>STAGE V GFR <15 VERY LITTLE GFR LEFT</content>
<content>ESRD GFR <15 ON TELEPHONE ORDER CLERK</content>
<content></content> Calcium [Mass/volume] in Serum or Plasma 10.2 mg/dL 8.5-10.1 [facility] NOTE: RESULT VERIFIED. ID Date Data Source [id number] 02/05/2020 11:20:00 AM EST [facility] ([facility]) Name Value Range Interpretation Code Description Data Mariposa rce(s) Supporting Document(s) INR in Platelet poor plasma by Coagulation assay 3.7 [facility] ([facility]) ID Date Data Source [id number] 01/31/2020 01:07:00 PM EDT [facility] ([facility]) Name Value Range Interpretation Code Description Data Mariposa rce(s) Supporting Document(s) INR in Platelet poor plasma by Coagulation assay 2.7 [facility] ([facility]) ID Date Data Source [id number] 01/31/2020 11:26:00 AM EDT [facility] ([facility]) Name Value Range Interpretation Code Description Data Mariposa rce(s) Supporting Document(s) Digoxin [Mass/volume] in Serum or Plasma 0.6 ng/mL 0.5-2.0 [facility] ([facility]) ID Date Data Source [id number] 01/31/2020 11:26:00 AM EDT [facility] ([facility]) Name Value Range Interpretation Code Description Data Mariposa rce(s) Supporting Document(s) Digoxin [Mass/volume] in Serum or Plasma 0.6 ng/mL 0.5-2.0 [facility] ([facility]) ID Date Data Source [id number] 01/31/2020 11:25:00 AM EDT [facility] ([facility]) Name Value Range Interpretation Code Description Data Mariposa rce(s) Supporting Document(s) Hemoglobin [Mass/volume] in Blood 13.8 g/dL 12.0-18.0 [facility] Erythrocytes [#/volume] in Blood by Automated count 4.36 x10*6/UL 4.2 0-6.30 [facility] Leukocytes [#/volume] in Blood by Automated count 6.2 x10*3/UL 4.1-10 .9 [facility] ([facility]) MCH 31.6 pg 26.0-32.0 [facility] ([facility]) Hematocrit [Volume Fraction] of Blood by Automated count 40.7 % 3 7.0-51.0 [facility] MCV 93.2 fL 80.0-97.0 [facility] ([facility]) MCHC 34.0 g/dL 31.0-38.0 [facility] ([facility]) Erythrocyte distribution width [Ratio] by Automated count 14.5 % 11.6-13.7 [facility] ([facility]) Lymph % 19.8 % 10.0-58.5 [facility] [facility]) Platelets [#/volume] in Blood by Automated count 236 x10*3/UL 140-440 [facility] ([facility]) MPV 7.8 FL 7.8-11.0 [facility] ([facility]) Lymph # 1.2 x10*3/UL 0.6-4.1 [facility] ([facility]) Mid % 5.7 % 1.7-9.3 [facility] [facility]) Neut % 74.5 % 37.0-92.0 [facility] ([facility]) Neut # 4.6 x10*3/UL 2.0-7.8 [facility] ([facility]) Mid # 0.4 x10*3/UL 0.1-0.6 [facility] ([facility]) ID Date Data Source [id number] 01/31/2020 11:25:00 AM EDT [facility] ([facility]) Name Value Range Interpretation Code Description Data Mariposa rce(s) Supporting Document(s) Magnesium 2.1 mg/dL 1.8-2.4 [facility] ([facility]) ID Date Data Source [id number] 01/31/2020 11:25:00 AM EDT [facility] ([facility]) Name Value Range Interpretation Code Description Data Mariposa rce(s) Supporting Document(s) Glucose [Mass/volume] in Serum or Plasma 101 mg/dL 74-99 [facility] ([facility]) 100-125 mg/dL PRE-DIABETES/FASTING >126 mg/dL DIABETES/FASTING Creatinine 0.7 mg/dL 0.6-1.3 [facility] ([facility]) Urea nitrogen [Mass/volume] in Serum or Plasma 17 mg/dL 7-18 [facility] ([facility]) Chloride [Moles/volume] in Serum or Plasma 104 meq/L 98-107 [facility] ([facility]) Potassium [Moles/volume] in Serum or Plasma 4.0 meq/L 3.5-5.1 [facility] ([facility]) Sodium [Moles/volume] in Serum or Plasma 143 meq/L 136-145 [facility] Calcium [Mass/volume] in Serum or Plasma 10.7 mg/dL 8.5-10.1 [facility] ([facility]) NOTE: RESULT VERIFIED. Glomerular filtration rate/1.73 sq M pre dicted among non-blacks [Volume Rate/Area] in Serum or Plasma by Creatinine-based formula (MDRD) Laboratory [facility] ) Carbon dioxide, total [Moles/volume] in Serum or Plasma 30 meq/L 21 -32 [facility] ([facility]) Glomerular filtration rate/1.73 sq M pre dicted among blacks [Volume Rate/Area] in Serum or Plasma by Creatinine-based formula (MDRD) Laboratory [facility]) <content>CHRONIC KIDNEY DISEASE STAGING PER NKF</content>
<content></content>
<content>STAGE I & II GFR >= 60 NORMAL TO MILDLY DECREASED</content>
<content>STAGE III GFR 30-59 MODERATELY DECREASED</content>
<content>STAGE IV GFR 15-29 SEVERELY DECREASED</content>
<content>STAGE V GFR <15 VERY LITTLE GFR LEFT</content>
<content>ESRD GFR <15 ON TELEPHONE ORDER CLERK</content>
<content></content> ID Date Data Source [id number] 01/31/2020 11:25:00 AM EDT [facility] ([facility]) Name Value Range Interpretation Code Description Data Mariposa rce(s) Supporting Document(s) Thyrotropin [Units/volume] in Serum or Plasma by Detec tion limit <= 0.05 mIU/L 0.16 uIU/mL 0.36-3.74 [facility] ([facility] ) ID Date Data Source [id number] 01/31/2020 11:25:00 AM EDT [facility]) Name Value Range Interpretation Code Description Data Mariposa rce(s) Supporting Document(s) Urine Color Laboratory test result [facility] ([facility]) Urine PH 6.5 units 5.0-9.0 [facility] Urine Appearance Laboratory test result [facility] ([facility]) Urine Leukocytes Laboratory test result [facility] ([facility]) Specific gravity of Urine 1.010 1.005-1.030 [facility] ([facility]) Urine Blood Laboratory test result [facility] ([facility]) Glucose [Presence] in Urine Laboratory test result [facility] ([facility]) Urine Protein Laboratory test result 0-0 [facility] ([facility]) Urine Nitrite Laboratory test result [facility] ([facility]) Urine Ketone Laboratory test result [facility] ([facility]) Urine Urobilinogen 0.2 mg/dL 0.2-1.0 [facility] ([facility]) Bilirubin.total [Mass/volume] in Serum or Plasma Laboratory test resu lt [facility] ([facility]) ID Date Data Source [id number] 01/31/2020 11:25:00 AM EDT [facility] Name Value Range Interpretation Code Description Data Mariposa rce(s) Supporting Document(s) Leukocytes [#/volume] in Blood by Automated count 6.2 x10*3/UL 4.1-10 .9 [facility] ([facility]) Erythrocytes [#/volume] in Blood by Automated count 4.36 x10*6/UL 4.2 0-6.30 [facility] ([facility]) Hemoglobin [Mass/volume] in Blood 13.8 g/dL 12.0-18.0 [facility] ([facility]) MCV 93.2 fL 80.0-97.0 [facility] ([facility]) Hematocrit [Volume Fraction] of Blood by Automated count 40.7 % 3 7.0-51.0 [facility] ([facility]) MCH 31.6 pg 26.0-32.0 [facility] ([facility]) MCHC 34.0 g/dL 31.0-38.0 [facility] Erythrocyte distribution width [Ratio] by Automated count 14.5 % 11.6-13.7 [facility] ([facility]) Platelets [#/volume] in Blood by Automated count 236 x10*3/UL 140-440 [facility] ([facility]) Mid % 5.7 % 1.7-9.3 [facility] ([facility]) Lymphocytes/100 leukocytes in Blood by Automated count 19.8 % 10. 0-58.5 [facility] ([facility]) Platelet mean volume [Entitic volume] in Blood by Colten 7.8 FL 7.8-11.0 [facility] ([facility]) Neut % 74.5 % 37.0-92.0 [facility] ([facility]) Mid # 0.4 x10*3/UL 0.1-0.6 [facility] ([facility]) Lymph # 1.2 x10*3/UL 0.6-4.1 [facility] ([facility]iolog y [facility]) Neutrophils [#/volume] in Semen by Manual count 4.6 x10*3/UL 2.0-7.8 [facility] ([facility]) ID Date Data Source [id number] 01/31/2020 11:24:00 AM EDT [facility] ([facility]) Name Value Range Interpretation Code Description Data Mariposa rce(s) Supporting Document(s) Thyroxine (T4) free [Mass/volume] in Serum or Plasma 1.33 ng/dL 0.76- 1.46 [facility] ([facility]) ID Date Data Source [id number] 01/28/2020 11:44:00 AM EDT [facility] ([facility]) Name Value Range Interpretation Code Description Data Mariposa rce(s) Supporting Document(s) INR in Platelet poor plasma by Coagulation assay 1.2 [facility] ([facility]) ID Date Data Source [id number] 01/24/2020 12:43:00 PM EDT [facility] ([facility]) Name Value Range Interpretation Code Description Data Marip[place] rce(s) Supporting Document(s) INR in Platelet poor plasma by Coagulation assay 7.2 [facility] ([facility]) ID Date Data Source [id number] 01/24/2020 11:33:00 AM EDT [facility] ([facility]) Name Value Range Interpretation Code Description Data Mariposa rce(s) Supporting Document(s) Prothrombin Time 49.4 s 12.5-14.3 [facility] Inr 5.24 Above upper panic limits [facility] ([facility]) THERAPUTIC HUMAN INR VALUES INDICATIONS NORMAL RANGES PROPHYLAXIS/TREATMENT OF: VENOUS THROMBOSIS 2.0-3.0 PULMONARY EMBOLISM 2.0-3.0 PREVENTION OF SYSTEMIC EMBOLISM FROM: TISSUE HEART VALVES 2.0-3.0 ACUTE MYOCARDIAL INFARCTION 2.0-3.0 VALVULAR HEART DISEASE 2.0-3.0 ATRIAL FIBRILLATION 2.0-3.0 MECHANICAL VALVES(HIGH RISK) 2.5-3.5 RECURRENT MYOCARDIAL INFARCTION 2.5-3.5 ID Date Data Source [id number] 01/24/2020 11:33:00 AM EDT [facility] ([facility]) Name Value Range Interpretation Code Description Data Mariposa rce(s) Supporting Document(s) Erythrocytes [#/volume] in Blood by Automated count 4.37 x10*6/UL 4.2 0-6.30 [facility] Leukocytes [#/volume] in Blood by Automated count 6.6 x10*3/UL 4.1-10 .9 [facility] ([facility]) MCV 91.9 fL 80.0-97.0 [facility] ([place] [facility]) Hemoglobin [Mass/volume] in Blood 13.7 g/dL 12.0-18.0 [facility] Hematocrit [Volume Fraction] of Blood by Automated count 40.2 % 3 7.0-51.0 [facility] Erythrocyte distribution width [Ratio] by Automated count 13.7 % 11.6-13.7 [facility] ([facility]) MCHC 34.2 g/dL 31.0-38.0 [facility] ([place] [facility]) MCH 31.4 pg 26.0-32.0 [facility] ([place] [facility]) Lymph % 16.8 % 10.0-58.5 [facility] ([facility]) Platelets [#/volume] in Blood by Automated count 251 x10*3/UL 140-440 [facility] ([facility]) MPV 8.3 FL 7.8-11.0 [facility] Lymph # 1.1 x10*3/UL 0.6-4.1 [facility] ([facility]) Mid % 4.7 % 1.7-9.3 [facility] Neut % 78.5 % 37.0-92.0 [facility] Neut # 5.2 x10*3/UL 2.0-7.8 [facility] ([facility]) Mid # 0.3 x10*3/UL 0.1-0.6 [facility] ([facility]) ID Date Data Source [id number] 01/17/2020 12:07:00 PM EDT [facility] ([facility]) Name Value Range Interpretation Code Description Data Mariposa rce(s) Supporting Document(s) INR in Platelet poor plasma by Coagulation assay 1.3 [facility] ([facility]) ID Date Data Source [id number] 12/14/2019 12:44:00 PM EDT [facility] ([facility]) Name Value Range Interpretation Code Description Data Marip[place] rce(s) Supporting Document(s) INR in Platelet poor plasma by Coagulation assay 3.7 [facility] ([facility]) ID Date Data Source [id number] 12/05/2019 03:27:00 PM EDT [facility] ([facility]) Name Value Range Interpretation Code Description Data [place]ip[place] rce(s) Supporting Document(s) INR in Platelet poor plasma by Coagulation assay 1.3 [facility] ([facility]) ID Date Data Source [id number] 10/30/2019 01:48:00 PM EDT [facility] ([facility]) Name Value Range Interpretation Code Description Data [place]ip[place] rce(s) Supporting Document(s) INR in Platelet poor plasma by Coagulation assay 2.6 [facility] ([facility]) ID Date Data Source [id number] 10/26/2019 11:57:00 AM EDT [facility] ([facility]) Name Value Range Interpretation Code Description Data Mariopsa rce(s) Supporting Document(s) Inr 4.98 [facility] ([place] [facility] THERAPUTIC HUMAN INR VALUES INDICATIONS NORMAL RANGES PROPHYLAXIS/TREATMENT OF: VENOUS THROMBOSIS 2.0-3.0 PULMONARY EMBOLISM 2.0-3.0 PREVENTION OF SYSTEMIC EMBOLISM FROM: TISSUE HEART VALVES 2.0-3.0 ACUTE MYOCARDIAL INFARCTION 2.0-3.0 VALVULAR HEART DISEASE 2.0-3.0 ATRIAL FIBRILLATION 2.0-3.0 MECHANICAL VALVES(HIGH RISK) 2.5-3.5 RECURRENT MYOCARDIAL INFARCTION 2.5-3.5 Prothrombin Time 47.4 s 12.5-14.3 [facility] ([facility]) ID Date Data Source [id number] 10/26/2019 11:56:00 AM EDT [facility] ([facility]) Name Value Range Interpretation Code Description Data Mariposa rce(s) Supporting Document(s) Hematocrit [Volume Fraction] of Blood by Automated count 28.7 % 3 7.0-51.0 [facility] Erythrocytes [#/volume] in Blood by Automated count 3.00 x10*6/UL 4.2 0-6.30 [facility] Hemoglobin [Mass/volume] in Blood 10.1 g/dL 12.0-18.0 [facility] NOTE: RESULT VERIFIED. Leukocytes [#/volume] in Blood by Automated count 8.4 x10*3/UL 4.1-10 .9 [facility] MCH 33.8 pg 26.0-32.0 [facility] ([facility]) MCHC 35.3 g/dL 31.0-38.0 [facility] ([facility]) MCV 95.7 fL 80.0-97.0 [facility] ([facility]) Platelets [#/volume] in Blood by Automated count 289 x10*3/UL 140-440 [facility] MPV 7.4 FL 7.8-11.0 [facility] ([facility]) Erythrocyte distribution width [Ratio] by Automated count 13.2 % 11.6-13.7 [facility] Neut % 79.2 % 37.0-92.0 [facility] [facility]) Mid % 6.2 % 1.7-9.3 [facility] Lymph # 1.2 x10*3/UL 0.6-4.1 [facility] ([facility]) Lymph % 14.6 % 10.0-58.5 [facility] Mid # 0.6 x10*3/UL 0.1-0.6 [facility] ([facility]) Neut # 6.6 x10*3/UL 2.0-7.8 [facility] ([facility]) ID Date Data Source [id number] 10/24/2019 10:42:00 AM EDT [facility] ([facility]) Name Value Range Interpretation Code Description Data Mariposa rce(s) Supporting Document(s) INR in Platelet poor plasma by Coagulation assay 8.0 [facility] ID Date Data Source [id number] 10/24/2019 10:31:00 AM EDT [facility] ([facility]) Name Value Range Interpretation Code Description Data [place] rce(s) Supporting Document(s) Prothrombin Time 59.3 s 11.8-14.0 [facility] ([facility]) Inr 6.73 Above upper panic limits [facility] ([facility]) THERAPUTIC HUMAN INR VALUES INDICATIONS NORMAL RANGES PROPHYLAXIS/TREATMENT OF: VENOUS THROMBOSIS 2.0-3.0 PULMONARY EMBOLISM 2.0-3.0 PREVENTION OF SYSTEMIC EMBOLISM FROM: TISSUE HEART VALVES 2.0-3.0 ACUTE MYOCARDIAL INFARCTION 2.0-3.0 VALVULAR HEART DISEASE 2.0-3.0 ATRIAL FIBRILLATION 2.0-3.0 MECHANICAL VALVES(HIGH RISK) 2.5-3.5 RECURRENT MYOCARDIAL INFARCTION 2.5-3.5 ID Date Data Source [id number] 10/24/2019 10:06:00 AM EDT [facility] ([facility]) Name Value Range Interpretation Code Description Data [place]ip[place] rce(s) Supporting Document(s) Thyrotropin [Units/volume] in Serum or Plasma by Detec tion limit <= 0.05 mIU/L 0.16 uIU/mL 0.36-3.74 [facility] ([facility] ) ID Date Data Source [id number] 10/24/2019 10:06:00 AM EDT [facility] ([facility]) Name Value Range Interpretation Code Description Data Mariposa rce(s) Supporting Document(s) Glucose [Mass/volume] in Serum or Plasma 99 mg/dL 74-99 [facility] ([facility]) 100-125 mg/dL PRE-DIABETES/FASTING >126 mg/dL DIABETES/FASTING Urea nitrogen [Mass/volume] in Serum or Plasma 25 mg/dL 7-18 [facility] ([facility]) Chloride [Moles/volume] in Serum or Plasma 107 meq/L 98-107 [facility] ([facility]) Creatinine 0.8 mg/dL 0.6-1.3 [facility] Potassium [Moles/volume] in Serum or Plasma 4.6 meq/L 3.5-5.1 [facility] ([facility]) Sodium [Moles/volume] in Serum or Plasma 143 meq/L 136-145 [facility] ([facility]) Carbon dioxide, total [Moles/volume] in Serum or Plasma 26 meq/L 21 -32 [facility] ([facility]) Glomerular filtration rate/1.73 sq M pre dicted among non-blacks [Volume Rate/Area] in Serum or Plasma by Creatinine-based formula (MDRD) Laboratory test result [facility] ([facility] ) Calcium [Mass/volume] in Serum or Plasma 10.0 mg/dL 8.5-10.1 [facility] ([facility]) Glomerular filtration rate/1.73 sq M pre dicted among blacks [Volume Rate/Area] in Serum or Plasma by Creatinine-based formula (MDRD) Laboratory test result [facility] ([facility]) <content>CHRONIC KIDNEY DISEASE STAGING PER NKF</content>
<content></content>
<content>STAGE I & II GFR >= 60 NORMAL TO MILDLY DECREASED</content>
<content>STAGE III GFR 30-59 MODERATELY DECREASED</content>
<content>STAGE IV GFR 15-29 SEVERELY DECREASED</content>
<content>STAGE V GFR <15 VERY LITTLE GFR LEFT</content>
<content>ESRD GFR <15 ON TELEPHONE ORDER CLERK</content>
<content></content> ID Date Data Source [id number] 10/24/2019 10:06:00 AM EDT [facility] ([facility]) Name Value Range Interpretation Code Description Data Mariposa rce(s) Supporting Document(s) Leukocytes [#/volume] in Blood by Automated count 8.1 x10*3/UL 4.1-10 .9 [facility] ([facility]) Erythrocytes [#/volume] in Blood by Automated count 2.84 x10*6/UL 4.2 0-6.30 [facility] ([facility]) MCV 96.3 fL 80.0-97.0 [facility] [facility]) Hematocrit [Volume Fraction] of Blood by Automated count 27.3 % 3 7.0-51.0 [facility] ([facility]) Hemoglobin [Mass/volume] in Blood 9.5 g/dL 12.0-18.0 [facility] ([facility]) NOTE: RESULT VERIFIED. Erythrocyte distribution width [Ratio] by Automated count 13.4 % 11.6-13.7 [facility] ([facility]) MCHC 34.9 g/dL 31.0-38.0 [facility] MCH 33.6 pg 26.0-32.0 [facility] [facility]) MPV 7.9 FL 7.8-11.0 [facility] Lymph % 14.4 % 10.0-58.5 [facility] [facility]) Platelets [#/volume] in Blood by Automated count 281 x10*3/UL 140-440 [facility] ([facility]) Lymph # 1.1 x10*3/UL 0.6-4.1 [facility] ([facility]) Mid # 0.5 x10*3/UL 0.1-0.6 [facility] ([facility]) Neut % 80.1 % 37.0-92.0 [facility] Mid % 5.5 % 1.7-9.3 [facility] Neut # 6.5 x10*3/UL 2.0-7.8 [facility] ([facility]) ID Date Data Source [id number] 10/01/2019 08:39:00 PM EDT [facility]) Name Value Range Interpretation Code Description Data Mariposa rce(s) Supporting Document(s) Respiratory Panel Laboratory test result [facility] This respiratory PCR panel detects Influ [...] - SARS-CoV-2 (COVID19) ID Date Data Source [id number] 08/30/2019 11:38:00 AM EDT [facility] ([facility]) Name Value Range Interpretation Code Description Data Mariposa rce(s) Supporting Document(s) INR in Platelet poor plasma by Coagulation assay 2.9 [facility] ([facility]) ID Date Data Source [id number] 07/31/2019 04:00:00 PM EDT [facility] ([facility]) Name Value Range Interpretation Code Description Data Mariposa rce(s) Supporting Document(s) INR in Platelet poor plasma by Coagulation assay 2.7 [facility] ([facility]) ID Date Data Source [id number] 07/31/2019 02:20:00 PM EDT [facility] ([facility]) Name Value Range Interpretation Code Description Data Mariposa rce(s) Supporting Document(s) Magnesium 2.0 mg/dL 1.8-2.4 [facility] ID Date Data Source [id number] 07/31/2019 02:20:00 PM EDT [facility] ([facility]) Name Value Range Interpretation Code Description Data Mariposa rce(s) Supporting Document(s) Digoxin [Mass/volume] in Serum or Plasma 0.4 ng/mL 0.5-2.0 [facility] ([facility]) ID Date Data Source [id number] 07/31/2019 02:20:00 PM EDT [facility] ([facility]) Name Value Range Interpretation Code Description Data Mariposa rce(s) Supporting Document(s) Thyrotropin [Units/volume] in Serum or Plasma by Detec tion limit <= 0.05 mIU/L 3.16 uIU/mL 0.36-3.74 [facility] ([facility] ) ID Date Data Source [id number] 07/31/2019 02:20:00 PM EDT [facility] ([facility]) Name Value Range Interpretation Code Description Data Mariposa rce(s) Supporting Document(s) Glucose [Mass/volume] in Serum or Plasma 110 mg/dL 74-99 [facility] ([facility]) 100-125 mg/dL PRE-DIABETES/FASTING >126 mg/dL DIABETES/FASTING Urea nitrogen [Mass/volume] in Serum or Plasma 29 mg/dL 7-18 [facility] ([facility]) Potassium [Moles/volume] in Serum or Plasma 4.9 meq/L 3.5-5.1 [facility] ([facility]) Creatinine 1.1 mg/dL 0.6-1.3 [facility] Sodium [Moles/volume] in Serum or Plasma 139 meq/L 136-145 [facility] ([facility]) Chloride [Moles/volume] in Serum or Plasma 101 meq/L 98-107 [facility] ([facility]) Carbon dioxide, total [Moles/volume] in Serum or Plasma 25 meq/L 21 -32 [facility] ([facility]) Glomerular filtration rate/1.73 sq M pre dicted among non-blacks [Volume Rate/Area] in Serum or Plasma by Creatinine-based formula (MDRD) 50 mL/min [facility] ([facility]) Calcium [Mass/volume] in Serum or Plasma 10.5 mg/dL 8.5-10.1 [facility] ([facility]) NOTE: RESULT VERIFIED. Glomerular filtration rate/1.73 sq M pre dicted among blacks [Volume Rate/Area] in Serum or Plasma by Creatinine-based formula (MDRD) Laboratory test result [facility] ([facility]) <content>CHRONIC KIDNEY DISEASE STAGING PER NKF</content>
<content></content>
<content>STAGE I & II GFR >= 60 NORMAL TO MILDLY DECREASED</content>
<content>STAGE III GFR 30-59 MODERATELY DECREASED</content>
<content>STAGE IV GFR 15-29 SEVERELY DECREASED</content>
<content>STAGE V GFR <15 VERY LITTLE GFR LEFT</content>
<content>ESRD GFR <15 ON TELEPHONE ORDER CLERK</content>
<content></content> ID Date Data Source [id number] 07/31/2019 08:05:00 AM EDT [facility] ([facility]) Name Value Range Interpretation Code Description Data Mariposa rce(s) Supporting Document(s) Glucose 110 74-106 [facility] ([facility] Creatinine 1.1 0.6-1.3 [facility] ([facility]) Blood Urea Nitrogen 29 7-18 [facility] ([facility]) Sodium 139 136-145 [facility] ([facility] Potassium 4.9 3.5-5.1 [facility] ([facility]) Carbon Dioxide 25 21-32 [facility] ([facility]) Chloride 101 98-107 [facility] ([facility]) Glomerular filtration rate/1.73 sq M.pre dicted [Volume Rate/Area] in Serum or Plasma by Creatinine-based formula (MDRD) 50 [facility] ([facility]) Calcium 10.5 8.5-10.1 [facility] ([facility]) ID Date Data Source [id number] 07/23/2019 02:36:00 PM EDT [facility] ([facility]) Name Value Range Interpretation Code Description Data Mariposa rce(s) Supporting Document(s) INR in Platelet poor plasma by Coagulation assay 3.4 [facility] ([facility]) ID Date Data Source [id number] 07/16/2019 02:08:00 PM EDT [facility] ([facility]) Name Value Range Interpretation Code Description Data Mariposa rce(s) Supporting Document(s) INR in Platelet poor plasma by Coagulation assay 2.9 [facility] ID Date Data Source [id number] [facility] Name Value Range Interpretation Code Description Data Mariposa rce(s) Supporting Document(s) INR in Platelet poor plasma by Coagulation assay 1.3 [facility] ID Date Data Source [id number] 06/27/2019 10:59:00 AM EDT [facility] Name Value Range Interpretation Code Description Data Mariposa rce(s) Supporting Document(s) C reactive protein [Mass/volume] in Serum or Plasma by High sensitivity method Laboratory test result 0.00-0.30 [facility] ([facility]) ID Date Data Source [id number] 06/27[facility]2019 10[facility]59[facility] Name Value Range Interpretation Code Description Data Mariposa rce(s) Supporting Document(s) Glucose, Fasting 91 mg/dL 70-100 [facility] Creatinine For GFR 0.64 mg/dL 0.55-1.30 [facility]) Blood Urea Nitrogen 16 mg/dL 7-18 [facility] ([facility]) Glomerular Filtration Rate Laboratory test result [facility] ([facility]) <content>Units are mL/min/1.73 m2</content>
<content></content>
<content>Chronic Kidney Disease Staging per NKF:</content>
<content></content>
<content>Stage I & II GFR >=60 Normal to Mildly Decreased</content>
<content>Stage III GFR 30- 59 Moderately Decreased</content>
<content>Stage IV GFR 15-29 Severely Decreased</content>
<content>Stage V GFR <15 Very Little GFR Left</content>
<content>ESRD GFR <15 on TELEPHONE ORDER CLERK</content>
<content></content> Sodium Level 142 meq/L 136-145 [facility] ([facility]) Potassium Serum 4.7 meq/L 3.5-5.1 [facility]) Carbon Dioxide Level 26 meq/L 21-32 [facility] Chloride Level 108 meq/L 98-107 [facility] ([facility]) Anion Gap 8 meq/L 8-16 [facility] Calcium Level 9.8 mg/dL 8.8-10.2 [facility] ([facility]) ID Date Data Source [id number] 06/27/2019 10:59:00 AM EDT [facility] ([facility]) Name Value Range Interpretation Code Description Data Mariposa rce(s) Supporting Document(s) Erythrocyte sedimentation rate by Westergren method 78 mm/hr 0-30 [facility] ([facility]) ID Date Data Source [id number] 06/27/2019 10:59:00 AM EDT [facility] ([facility]) Name Value Range Interpretation Code Description Data Mariposa rce(s) Supporting Document(s) Red Blood Count 3.74 10 4.00-5.40 [facility] ([facility]) Hemoglobin 12.1 g/dL 12.0-15.5 [facility] ([facility]) White Blood Count 5.4 10 4.0-10.0 [facility] Mean Corpuscular Volume 102.7 fl 80.0-96.0 [facility] ([facility]) Mean Corpuscular HGB Conc 31.5 g/dL 32.0-36.5 [facility] ([facility]) Mean Corpuscular Hemoglobin 32.4 pg 27.0-33.0 ID [facility] ([facility]) Hematocrit 38.4 % 36.0-47.0 [facility] ([facility]) Neutrophils % 66.1 % 36.0-66.0 [facility] ([facility]) Platelet Count, Automated 204 10 150-450 [facility] ([facility]) Red Cell Distribution Width 13.4 % 11.5-14.5 [facility] ([facility]) Baso % 0.4 % 0.0-1.0 [facility] ([facility]) [place] % 7.7 % 0.0-5.0 [facility] ([facility]) Eos % 2.2 % 0.0-3.0 [facility] ([facility]) Lymph % 23.2 % 24.0-44.0 [facility] ([facility]) Nucleated Red Blood Cell % 0.0 % 0-0 [facility] ([facility]) Immature Granulocyte % 0.4 % 0-3.0 [facility] ([facility]) Neutrophils # 3.5 10 1.5-8.5 [facility] ([facility]) Eos # 0.1 10 0.0-0.5 [facility] ([facility]) Lymph # 1.2 10 1.5-5.0 [facility] ([facility]) [place] # 0.4 10 0.0-0.8 [facility]) Baso # 0.0 10 0.0-0.2 [facility] ([facility]) ID Date Data Source [id number] 06/27/2019 10:59:00 AM EDT [facility] ([facility]) Name Value Range Interpretation Code Description Data Mariposa rce(s) Supporting Document(s) aPTT in Blood by Coagulation assay 43.9 s 25.0-38.4 [facility] ID Date Data Source [id number] 06/27/2019 10:59:00 AM EDT [facility] ([facility]) Name Value Range Interpretation Code Description Data Mariposa rce(s) Supporting Document(s) Inr 3.68 [facility] ([facility]) THERAPUTIC HUMAN INR VALUES INDICATIONS NORMAL RANGES PROPHYLAXIS/TREATMENT OF: VENOUS THROMBOSIS 2.0-3.0 PULMONARY EMBOLISM 2.0-3.0 PREVENTION OF SYSTEMIC EMBOLISM FROM: TISSUE HEART VALVES 2.0-3.0 ACUTE MYOCARDIAL INFARCTION 2.0-3.0 VALVULAR HEART DISEASE 2.0-3.0 ATRIAL FIBRILLATION 2.0-3.0 MECHANICAL VALVES(HIGH RISK) 2.5-3.5 RECURRENT MYOCARDIAL INFARCTION 2.5-3.5 Prothrombin Time 36.6 s 11.8-14.0 [facility] ([facility]) ID Date Data Source [id number] 06/11/2019 01:54:00 PM EDT [facility] Name Value Range Interpretation Code Description Data Mariposa rce(s) Supporting Document(s) Natriuretic peptide.B prohormone N-Terminal [Mass/volu me] in Serum or Plasma 388 pg/mL 0-287 [facility] ([employer] [facility]) <content>The following cut-points have b een suggested [...] in Serum or Plasma 0.21 ug/mL 0.20-1.00 [facility] ([facility]) This test was developed and its performa nce characteristics determined by [facility]. It has not been cleared or approved by the Food and Drug Administration. Detection Limit = 0.10 Laboratory test finding (navigational concept) Laboratory test result [facility] ([facility]) ID Date Data Source [id number] 06/13/2019 02:05:00 PM EDT [facility] Name Value [...] independent 300 pg/mL ID Date Data Source [id number] 06/13/2019 08:05:00 PM EDT [facility] Name Value Range Interpretation Code Description Data Mariposa rce(s) Supporting Document(s) Flecainide (Tambocor(TM)), S 0.21 ug/mL 0.20-1.00 [facility] This test was developed and its performa nce characteristicsdetermined by [facility]. It has not been cleared or approvedby the Food and Drug Administration. Detection Limit = 0.10 ID Date Data Source [id number] 06/05/2019 11:23:00 AM EST [facility] ([facility]) Name Value Range Interpretation Code Description Data Mariposa rce(s) Supporting Document(s) INR in Platelet poor plasma by Coagulation assay 2.6 [facility] ([facility]) ID Date Data Source [id number] 05/22/2019 11:33:00 AM EST [facility] ([facility]) Name Value Range Interpretation Code Description Data Mariposa rce(s) Supporting Document(s) INR in Platelet poor plasma by Coagulation assay 2.2 [facility] ([facility]) ID Date Data Source [id number] 05/15/2019 11:32:00 AM EST [facility] ([facility]) Name Value Range Interpretation Code Description Data Mariposa rce(s) Supporting Document(s) INR in Platelet poor plasma by Coagulation assay 1.9 [facility] ([facility]) ID Date Data Source [id number] 05/08/2019 11:31:00 AM EST [facility] ([facility]) Name Value Range Interpretation Code Description Data Mariposa rce(s) Supporting Document(s) INR in Platelet poor plasma by Coagulation assay 1.7 [facility] ([facility]) ID Date Data Source [id number] 05/01/2019 01:15:00 PM EST [facility] ([facility]) Name Value Range Interpretation Code Description Data Mariposa rce(s) Supporting Document(s) INR in Platelet poor plasma by Coagulation assay 1.8 [facility] ([facility]) ID Date Data Source [id number] 04/24/2019 11:41:00 AM EST [facility] ([facility]) Name Value Range Interpretation Code Description Data Mariposa rce(s) Supporting Document(s) Thyrotropin [Units/volume] in Serum or Plasma by Detec tion limit <= 0.05 mIU/L 1.37 uIU/mL 0.36-3.74 [facility] ([facility] ) Thyroxine (T4) free [Mass/volume] in Serum or Plasma 1.32 ng/dL 0.76- 1.46 [facility] ([facility]) ID Date Data Source [id number] 04/24/2019 11:41:00 AM EST [facility] ([facility]) Name Value Range Interpretation Code Description Data Mariposa rce(s) Supporting Document(s) Triglyceride [Mass/volume] in Serum or Plasma 63 mg/dL 30-150 [facility] ([facility]) Cholesterol [Mass/volume] in Serum or Plasma 130 mg/dL 131-200 [facility] ([facility]) Cholesterol in LDL [Mass/volume] in Serum or Plasma by calcu lation 59 CALC 50-159 [facility] ([facility]) Cholesterol in HDL [Mass/volume] in Serum or Plasma 58 mg/dL 35-60 [facility] ([facility]) ID Date Data Source [id number] 04/24/2019 11:41:00 AM EST [facility] ([facility]) Name Value Range Interpretation Code Description Data Mariposa rce(s) Supporting Document(s) Magnesium 2.1 mg/dL 1.8-2.4 [facility]) ID Date Data Source [id number] 04/24/2019 11:41:00 AM EST [facility] ([facility]) Name Value Range Interpretation Code Description Data Mariposa rce(s) Supporting Document(s) Glucose [Mass/volume] in Serum or Plasma 90 mg/dL 74-99 [facility] ([facility]) 100-125 mg/dL PRE-DIABETES/FASTING >126 mg/dL DIABETES/FASTING Creatinine 0.8 mg/dL 0.6-1.3 [facility] Urea nitrogen [Mass/volume] in Serum or Plasma 17 mg/dL 7-18 [facility] ([facility]) Carbon dioxide, total [Moles/volume] in Serum or Plasma 28 meq/L 21 -32 [facility] ([facility]) Chloride [Moles/volume] in Serum or Plasma 104 meq/L 98-107 [facility] ([facility]) Sodium [Moles/volume] in Serum or Plasma 142 meq/L 136-145 [facility] ([facility]) Potassium [Moles/volume] in Serum or Plasma 4.9 meq/L 3.5-5.1 [facility] ([facility]) Calcium [Mass/volume] in Serum or Plasma 10.7 mg/dL 8.5-10.1 [facility] ([facility]) NOTE: RESULT VERIFIED. Total Bilirubin 0.5 mg/dL 0.2-1.0 [facility] Alkaline phosphatase isoenzyme [Units/volume] in Serum or Pl asma 82 mg/dL 46-116 [facility] ([facility]) Aspartate aminotransferase [Enzymatic activity/volume] in Serum or Plasma 23 U/L 15-37 [facility] Albumin [Mass/volume] in Serum or Plasma 3.3 g/dL 3.4-5.0 [facility] ([facility]) NOTE: RESULT VERIFIED. Alanine aminotransferase [Enzymatic activity/volume] in Seru m or Plasma 20 U/L 12-78 [facility] Glomerular filtration rate/1.73 sq M pre dicted among blacks [Volume Rate/Area] in Serum or Plasma by Creatinine-based formula (MDRD) Laboratory test result [facility] <content>CHRONIC KIDNEY DISEASE STAGING PER NKF</content>
<content></content>
<content>STAGE I & II GFR >= 60 NORMAL TO MILDLY DECREASED</content>
<content>STAGE III GFR 30-59 MODERATELY DECREASED</content>
<content>STAGE IV GFR 15-29 SEVERELY DECREASED</content>
<content>STAGE V GFR <15 VERY LITTLE GFR LEFT</content>
<content>ESRD GFR <15 ON TELEPHONE ORDER CLERK</content>
<content></content> Glomerular filtration rate/1.73 sq M pre dicted among non-blacks [Volume Rate/Area] in Serum or Plasma by Creatinine-based formula (MDRD) Laboratory test result [facility] Proteinase 3 Ab [Units/volume] in Serum 8.3 g/dL 6.4-8.2 [facility] NOTE: RESULT VERIFIED. A/G Ratio 0.66 CALC 1.00-1.90 [facility] ID Date Data Source [id number] 04/24/2019 11:40:00 AM EST [facility] Name Value Range Interpretation Code Description Data Mariposa rce(s) Supporting Document(s) Parathyrin.intact [Mass/volume] in Serum or Plasma 26.6 pg/mL 18.5-88 .0 [facility] ID Date Data Source [id number] 04/24/2019 11:40:00 AM EST [facility] Name Value Range Interpretation Code Description Data Mariposa rce(s) Supporting Document(s) Calcidiol [Mass/volume] in Serum or Plasma 33.5 24.0-80.0 [facility] This test was performed using [employer] I P Vitamin D immunoassay kit. Values obtained with different assay methods should not be used interchangeably. ID Date Data Source [id number] 04/24/2019 10:40:00 AM EST [facility] Name Value Range Interpretation Code Description Data Mariposa rce(s) Supporting Document(s) INR in Platelet poor plasma by Coagulation assay 3.2 [facility] ID Date Data Source [id number] 04/16/2019 11:19:00 AM EST [facility] Name Value Range Interpretation Code Description Data Mraiposa rce(s) Supporting Document(s) INR in Platelet poor plasma by Coagulation assay 3.1 [facility] ([facility]) ID Date Data Source [id number] 04/02/2019 02:33:00 PM EST [facility] ([facility]) Name Value Range Interpretation Code Description Data Mariposa rce(s) Supporting Document(s) INR in Platelet poor plasma by Coagulation assay 1.6 [facility] ([facility]) Procedure Vital Signs ID Date Data Source [id number] Name Value Range Interpretation Code Description Data Source(s) Body mass index (BMI) [Ratio] 35.7 kg/m2 35.7 k g/m2 [facility] ([facility]) Body weight 221.00 [lb_av] 221.00 [lb_av] [facility] ([facility]) Body height 66 [in_i] 66 [in_i] [facility] ([facility]) 5'6" Heart rate 60 /min 60 /min [facility] ([facility]) Diastolic blood pressure 70 mm[Hg] 70 mm[Hg] [facility] ([facility]) RT Arm Systolic blood pressure 148 mm[Hg] 148 mm[Hg] [facility] ([facility]) RT Arm Body weight 226.00 [lb_av] 226.00 [lb_av] [facility] Body mass index (BMI) [Ratio] 36.5 kg/m2 36.5 k g/m2 [facility] ([facility]) Body weight 226.00 [lb_av] 226.00 [lb_av] [facility] Body height 66 [in_i] 66 [in_i] [facility] ([facility]) 5'6" Diastolic blood pressure 90 mm[Hg] 90 mm[Hg] [facility] ([facility]) Systolic blood pressure 138 mm[Hg] 138 mm[Hg] [facility] ([facility]) Body weight 217.00 [lb_av] 217.00 [lb_av] [facility] ([facility]) Body weight 220.00 [lb_av] 220.00 [lb_av] [facility] ([facility]) Body weight 216.00 [lb_av] 216.00 [lb_av] [facility] ([facility]) Body weight 222.00 [lb_av] 222.00 [lb_av] [facility] ([facility]) Body mass index (BMI) [Ratio] 37.6 kg/m2 37.6 k g/m2 [facility] Body weight 222.50 [lb_av] 222.50 [lb_av] [facility] ([facility]) Body height 64.50 [in_i] 64.50 [in_i] [facility] ([facility]) 5'4.50" Heart rate 76 /min 76 /min [facility]) Diastolic blood pressure 90 mm[Hg] 90 mm[Hg] [facility] ([facility]) LT Arm Systolic blood pressure 132 mm[Hg] 132 mm[Hg] [facility] ([facility]) LT Arm Diastolic blood pressure--sitting 74 mm[Hg] 74 mm[Hg] [facility] ([facility]) large cuff, Ra Systolic blood pressure--sitting 126 mm[Hg] 126 mm[Hg] [facility] ([facility]) large cuff, Ra Heart rate 67 /min 67 /min [facility]) Body mass index (BMI) [Ratio] 38.1 kg/m2 38.1 k g/m2 [facility] ([facility]) Body height 65 [in_i] 65 [in_i] [facility] 5'5" Body weight 229.00 [lb_av] 229.00 [lb_av] [facility] ([facility]) Oxygen saturation in Arterial blood by Pulse oximetry 98 % 98 % [facility] ([facility]) Body weight 231.00 [lb_av] 231.00 [lb_av] [facility] ([facility]) Heart rate 69 /min 69 /min [facility] ([facility]) Diastolic blood pressure 72 mm[Hg] 72 mm[Hg] [facility] ([facility]) Systolic blood pressure 138 mm[Hg] 138 mm[Hg] [facility] ([facility]) Body weight 231.00 [lb_av] 231.00 [lb_av] [facility] ([facility]) Body mass index (BMI) [Ratio] 38.4 kg/m2 38.4 k g/m2 [facility] ([facility]) Body weight 227.12 [lb_av] 227.12 [lb_av] [facility] ([facility]) Body height 64.50 [in_i] 64.50 [in_i] [facility] ([facility]) 5'4.50" Heart rate 68 /min 68 /min [facility] ([facility]) Diastolic blood pressure 56 mm[Hg] 56 mm[Hg] [facility] ([facility]) RT Arm Systolic blood pressure 114 mm[Hg] 114 mm[facility]Hg] [facility] RT Arm Body mass index (BMI) [Ratio] 38.5 kg/m2 38.5 k g/m2 [facility] ([facility]) Body weight 228.00 [lb_av] 228.00 [lb_av] [facility] ([facility]) Body height 64.50 [in_i] 64.50 [in_i] [facility] ([facility] 5'4.50" Body mass index (BMI) [Ratio] 39.3 kg/m2 39.3 k g/m2 [facility] ([facility]) Body weight 232.38 [lb_av] 232.38 [lb_av] [facility] ([facility]) Body height 64.50 [in_i] 64.50 [in_i] [facility] ([facility] 5'4.50" Heart rate 56 /min 56 /min [facility] ([facility]) Diastolic blood pressure 80 mm[Hg] 80 mm[Hg] [facility] RT Arm Systolic blood pressure 122 mm[Hg] 122 mm[Hg] [facility] RT Arm Diastolic blood pressure--supine 78 mm[Hg] 78 mm[Hg] [facility] ([facility]) Systolic blood pressure--supine 144 mm[Hg] 144 mm[Hg] [facility] ([facility]) Diastolic blood pressure--sitting 76 mm[Hg] 76 mm[Hg] [facility] ([facility]) large cuff, Ra Systolic blood pressure--sitting 142 mm[Hg] 142 mm[Hg] [facility] ([facility]) large cuff, Ra Respiratory rate 18 /min 18 /min [facility] ( [facility]) Heart rate 66 /min 66 /min [facility] ([facility]) regular with occasional irregularity Body mass index (BMI) [Ratio] 38.1 kg/m2 38.1 k g/m2 [facility] ([facility]) Body height 65 [in_i] 65 [in_i] [facility] ([facility]) 5'5" Body weight 229.00 [lb_av] 229.00 [lb_av] [facility] ([facility]) Body weight 229.00 [lb_av] 229.00 [lb_av] [facility] ([facility]) Body weight 227.00 [lb_av] 227.00 [lb_av] [facility] ([facility]) Body weight 231.00 [lb_av] 231.00 [lb_av] [facility] ([facility]) Heart rate 66 /min 66 /min [facility] ([facility]) Diastolic blood pressure 80 mm[Hg] 80 mm[Hg] [facility] ([facility]) Systolic blood pressure 122 mm[Hg] 122 mm[Hg] M [facility] ([facility]) Body weight 233.00 [lb_av] 233.00 [lb_av] [facility] ([facility])
[2020-05-26 12:32] LABS: BASO % 0.5 % (0.0-1.0); EOS # 0.1 10^3/uL (0.0-0.5); EOS % 1.4 % (0.0-3.0); HEMATOCRIT 39.3 % (36.0-47.0); HEMOGLOBIN 12.4 g/dl (12.0-15.5); LYMPH # 1.2 10^3/uL (1.5-5.0); LYMPH % 27.8 % (24.0-44.0); MEAN CORPUSCULAR HEMOGLOBIN 31.3 pg (27.0-33.0); MEAN CORPUSCULAR HGB CONC 31.6 g/dl (32.0-36.5); MEAN CORPUSCULAR VOLUME 99.2 fl (80.0-96.0); MONO # 0.3 10^3/uL (0.0-0.8); MONO % 7.4 % (2.0-8.0); NEUTROPHILS # 2.7 10^3/uL (1.5-8.5); NEUTROPHILS % 62.7 % (36.0-66.0); PLATELET COUNT, AUTOMATED 193 10^3/uL (150-450); RED BLOOD COUNT 3.96 10^6/uL (4.00-5.40); WHITE BLOOD COUNT 4.3 10^3/uL (4.0-10.0)
[2020-05-26 12:46] LABS: INR 1.05; PROTHROMBIN TIME 13.9 SECONDS (12.5-14.3)
[2020-05-26 12:47] LABS: PARTIAL THROMBOPLASTIN TIME 35.2 SECONDS (24.2-38.5)
[2020-05-26 12:58] LABS: BLOOD UREA NITROGEN 29 MG/DL (7-18); C REACTIVE PROTEIN QUANTITATIV 0.52 MG/DL (0.00-0.30); CALCIUM LEVEL 10.8 MG/DL (8.8-10.2); CARBON DIOXIDE LEVEL 26 MEQ/L (21-32); CHLORIDE LEVEL 105 MEQ/L (98-107); CREATININE FOR GFR 0.92 MG/DL (0.55-1.30); GLOMERULAR FILTRATION RATE > 60.0 (>45); GLUCOSE, FASTING 99 MG/DL (70-100); POTASSIUM SERUM 4.9 MEQ/L (3.5-5.1); SODIUM LEVEL 139 MEQ/L (136-145)
[2020-05-26 13:03] LABS: ERYTHROCYTE SEDIMENTATION RATE 108 mm/hr (0-30)
--- NOTE | 2020-05-26 13:10 | REP ---
INDICATION: R/O DVT COMPARISON: None. TECHNIQUE: Real time compression and duplex Doppler interrogation of the left lower extremity deep venous system is performed. FINDINGS: The left common femoral, superficial femoral and popliteal veins are fully compressible with transducer pressure and demonstrate normal spontaneous and phasic flow, without evidence of deep venous thrombosis. IMPRESSION: No evidence of deep venous thrombosis of the left lower extremity femoral popliteal venous system. <Electronically signed by Harish Kumari > 05/26/20 [id number]
== END 2020-05-26 14:19 | disposition home or self-care (01) ==
LOC: M ED 11:08
DX: I80.01 Phlebitis and thrombophlebitis of superficial vessels of right lower extremity (principal); I83.813 Varicose veins of bilateral lower extremities with pain; G43.909 Migraine, unspecified, not intractable, without status migrainosus; R07.9 Chest pain, unspecified; I10 Essential (primary) hypertension; I48.91 Unspecified atrial fibrillation; Z86.718 Personal history of other venous thrombosis and embolism; K21.9 Gastro-esophageal reflux disease without esophagitis; M54.5 Low back pain; F41.9 Anxiety disorder, unspecified; F32.9 Major depressive disorder, single episode, unspecified; F17.200 Nicotine dependence, unspecified, uncomplicated; Z79.01 Long term (current) use of anticoagulants; Z79.899 Other long term (current) drug therapy; Z88.6 Allergy status to analgesic agent

== ENCOUNTER → 2020-06-03 | Outpatient (CLI) | payer MEDICARE, OTHER ==
[~2020-06-03] MED LIST changes: +BUPR150T12 PO; -VITA-157 PO; +VITAE40CA PO
--- NOTE | 2020-06-03 15:34 | REP ---
INDICATION: STENOSIS COMPARISON: None. TECHNIQUE: Kumari scale and color Doppler evaluation using linear high frequency transducer Findings: FINDINGS: Two-dimensional kumari scale and color images demonstrate minimal intimal thickening and trace calcified atherosclerotic plaquing with essentially normal arterial lumen and no evidence of discrete stenosis or occlusion. Normal laminar flow is maintained. Color Doppler interrogation demonstrates arterial wave patterns with elements of spectral broadening. Normal flow direction is appreciated in the bilateral vertebral arteries. ICA peak systolic velocity: Right 54.1 cm/s; Left 64.0 cm/s ICA diastolic velocity: Right 15.8 cm/s; Left 17.5 cm/s ECA peak systolic velocity: Right 61.7 cm/s; Left 66.1 cm/s CCA peak systolic velocity: Right 67.2 cm/s; Left 71.4 cm/s ICA/CCA ratio: Right 0.81 cm/s; Left 0.90 cm/s IMPRESSION: No hemodynamically significant areas of narrowing or stenosis appreciated. Based on set standards narrowing falls within the less than 50% range. <Electronically signed by Edmond Rodriguez > 06/03/20 1503
== END ==
LOC: M RAD 14:31
PROVIDERS: ATTEND Physician Assistant
DX: I65.29 Occlusion and stenosis of unspecified carotid artery (principal)

== ENCOUNTER → 2020-06-17 | Outpatient (REF) | payer MEDICARE, OTHER ==
[2020-06-17 17:24] LABS: TOTAL PROTEIN 8.2 GM/DL (6.4-8.2)
[2020-06-18 13:03] LABS: ALBUMIN 3.39 GM/DL (3.29-5.55); ALBUMIN % 41.3 % (55.8-66.1); ALPHA-1-GLOBULIN % 3.8 % (2.9-4.9); ALPHA-1-GLOBULINS 0.31 GM/DL (0.17-0.41); ALPHA-2-GLOBULINS 0.73 GM/DL (0.42-0.99); ALPHA-2-GLOBULINS % 8.9 % (7.1-11.8); BETA-1-GLOBULINS 0.48 GM/DL (0.28-0.60); BETA-1-GLOBULINS % 5.8 % (4.7-7.2); BETA-2-GLOBULINS 2.89 GM/DL (0.19-0.55); BETA-2-GLOBULINS % 35.2 % (3.2-6.5); GAMMA GLOBULINS 0.41 GM/DL (0.65-1.58)
[2020-06-20 11:18] LABS: IMMUNOTYPING SERUM IGA ABNORMAL (NORMAL); IMMUNOTYPING SERUM LAMBDA ABNORMAL (NORMAL)
== END ==
LOC: M LAB REF 16:25
PROVIDERS: ATTEND Internal Medicine
DX: E83.52 Hypercalcemia (principal)

== ENCOUNTER → 2020-06-19 | Outpatient (CLI) | payer MEDICARE, OTHER ==
--- NOTE | 2020-06-19 15:46 | DEXAMM ---
INDICATION: M85.80 DISORDER OF BONE. COMPARISON: None. TECHNIQUE: Bone density was measured using dual-energy x-ray absorptionmetry (DEXA). FINDINGS: AP SPINE L1-L4 BMD 1.259 g/cm2 Young Adult T-Score 0.5 Age Matched Z-Score 2.1. LT FEMUR, TOTAL BMD 0.835 g/cm2 Young Adult T-Score -1.4 Age Matched Z-Score -0.1. LT NECK BMD 0.990 g/cm2 Young Adult T-Score -0.3 Age Matched Z-Score 1.1. RT FEMUR, TOTAL BMD 0.819 g/cm2 Young Adult T-Score -1.5 Age Matched Z-Score -0.3. RT NECK BMD 0.901 g/cm2 Young Adult T-Score -1.0 Age Matched Z-Score 0.5. IMPRESSION: There is normal bone density of the spine. There is low bone density of the left hip. There is low bone density of the right hip. FOLLOW-UP: Recommendation for the next bone density exam: 2 years. <Electronically signed by Vick Rodriguez > 06/19/20 [id number]
== END ==
LOC: M WHC 12:17
PROVIDERS: ATTEND Internal Medicine
DX: Z12.31 Encounter for screening mammogram for malignant neoplasm of breast (principal); M85.89 Other specified disorders of bone density and structure, multiple sites

== ENCOUNTER 2020-07-17 16:24 | Emergency (ER) | payer MEDICARE, OTHER ==
[~2020-07-17] VITALS: Ht 167.6 cm; Wt 94.5 kg
[2020-07-17] MEDS ORDERED: NS 1,000 ML IV SCH (17:30)
[2020-07-17 17:51] LABS: BASO % 0.3 % (0.0-1.0); EOS # 0.1 10^3/uL (0.0-0.5); HEMATOCRIT 41.1 % (36.0-47.0); HEMOGLOBIN 12.9 g/dl (12.0-15.5); LYMPH # 1.3 10^3/uL (1.5-5.0); LYMPH % 21.1 % (24.0-44.0); MEAN CORPUSCULAR HEMOGLOBIN 32.3 pg (27.0-33.0); MEAN CORPUSCULAR HGB CONC 31.4 g/dl (32.0-36.5); MEAN CORPUSCULAR VOLUME 102.8 fl (80.0-96.0); MONO # 0.5 10^3/uL (0.0-0.8); MONO % 7.8 % (2.0-8.0); NEUTROPHILS # 4.1 10^3/uL (1.5-8.5); NEUTROPHILS % 68.5 % (36.0-66.0); PLATELET COUNT, AUTOMATED 163 10^3/uL (150-450)
[2020-07-17 18:34] LABS: BLOOD UREA NITROGEN 26 MG/DL (7-18); CARBON DIOXIDE LEVEL 31 mmol/L (20-29); CHLORIDE LEVEL 108 MEQ/L (98-107); CREATININE FOR GFR 0.94 MG/DL (0.55-1.30); GLOMERULAR FILTRATION RATE > 60.0 (>45); GLUCOSE, FASTING 99 MG/DL (70-100); POTASSIUM SERUM 4.5 MEQ/L (3.5-5.1); SODIUM LEVEL 142 MEQ/L (136-145)
[2020-07-17 18:35] LABS: ALBUMIN 2.9 GM/DL (3.2-5.2); ALT/SGPT 40 IU/L (0-32); BILIRUBIN,DIRECT 0.2 MG/DL (0.0-0.2); BILIRUBIN,TOTAL 0.4 MG/DL (0.2-1.0); CALCIUM LEVEL 10.1 MG/DL (8.8-10.2); CK-MB VALUE MASS < 1.0 NG/ML (<3.6); CPK CREATINE PHOSPHOKINASE 22 U/L (26-192); MB/CK RELATIVE INDEX 4.54 (< OR =4); NT-PRO BNP 340 PG/ML (<125); TOTAL PROTEIN 7.8 GM/DL (6.4-8.2); TROPONIN I < 0.02 NG/ML (< 0.10)
[2020-07-17 18:36] LABS: FREE T4 1.25 NG/DL (0.76-1.46); LIPASE 128 U/L (73-393); THYROID STIMULATING HORMONE 0.186 uIU/ML (0.358-3.740)
[2020-07-17 18:45] VITALS: BP 160/72
[2020-07-17 19:05] LABS: DIGOXIN LEVEL 1.6 NG/ML (0.5-2.0)
[2020-07-18 11:45] LABS: TOTAL 25(OH) VITAMIN D 35.3 NG/ML (30.0-100.0)
[2020-07-18 12:42] LABS: PTH INTACT 45.4 PG/ML (18.5-88.0)
--- NOTE | 2020-07-18 19:46 | ECGEPIP ---
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
== END 2020-07-17 20:03 | disposition home or self-care (01) ==
LOC: M ED 16:24
DX: I45.10 Unspecified right bundle-branch block (principal); R42 Dizziness and giddiness; I48.91 Unspecified atrial fibrillation; I10 Essential (primary) hypertension; K21.9 Gastro-esophageal reflux disease without esophagitis; E07.9 Disorder of thyroid, unspecified; Z86.718 Personal history of other venous thrombosis and embolism; F17.200 Nicotine dependence, unspecified, uncomplicated; Z79.82 Long term (current) use of aspirin; Z79.899 Other long term (current) drug therapy; Z88.6 Allergy status to analgesic agent

== ENCOUNTER → 2020-07-24 | Outpatient (REF) | payer MEDICARE, OTHER | LOC: M LAB REF 16:29 | PROVIDERS: ATTEND Internal Medicine | DX: I48.20 Chronic atrial fibrillation, unspecified (principal) ==

== ENCOUNTER → 2020-08-14 | Outpatient (CLI) | payer MEDICARE, OTHER ==
--- NOTE | 2020-08-14 18:41 | REPVR ---
PROCEDURE INFORMATION: Exam: CT Neck Without Contrast Exam date and time: 08/14/2020 6:07 PM Age: 64 years old Clinical indication: Other: Cea increasing myeloma TECHNIQUE: Imaging protocol: Computed tomography images of the neck without contrast. Radiation optimization: All CT scans at this facility use at least one of these dose optimization techniques: automated exposure control; mA and/or kV adjustment per patient size (includes targeted exams where dose is matched to clinical indication); or iterative reconstruction. COMPARISON: US Duplex,carotid (complete) 06/03/2020 2:48 PM FINDINGS: Limitations: Evaluation of the neck is limited without IV contrast. Nasopharynx: Unremarkable. Oropharynx: Unremarkable. No significant tonsillar enlargement. Hypopharynx: Unremarkable. Larynx: Unremarkable. Normal epiglottis. Retropharyngeal space: Unremarkable. Submandibular/Parotid glands: Normal. Glands are normal in size. Thyroid: An enlarged multinodular goiter is present. Lymph nodes: Unremarkable. No lymphadenopathy. Trachea: Visualized trachea is unremarkable. Lungs: Unremarkable as visualized. Bones/joints: Moderate degenerative changes of the cervical spine are present. There is no moderate/severe spinal canal stenosis at C4-C5 and C5-C6. There is mild reversal of the normal cervical lordosis. Minor anterolisthesis of C2 on C3 is noted. Vasculature: Atherosclerotic calcifications are present at the carotid bifurcations. Soft tissues: Unremarkable. No significant soft tissue swelling. IMPRESSION: 1. Limited examination of the neck without IV contrast 2. No acute abnormality. 3. Enlarged multinodular goiter 4. Chronic findings as discussed above. Electronically signed by: Sreedhra Flores On 08/14/2020 18:41:39 PM
--- NOTE | 2020-08-15 10:15 | REP ---
INDICATION: CEA INCREASING MYELOMA. COMPARISON: None TECHNIQUE: Standard helical technique without intravenous contrast administration or oral bowel preparatory contrast administration FINDINGS: Limited evaluation of the solid intra-abdominal organs show no gross abnormalities. Hepatic and splenic densities are within normal limits. The patient is status post cholecystectomy. Limited evaluation of the pancreas shows no gross abnormalities. There is a 3.5 cm sized low-density oval-shaped mass arising from the left adrenal gland which has consistently low Hounsfield unit readings consistent with benignity. There is mild bilateral perinephric stranding. Seen arising from the inferior pole of the lateral cortex of the right kidney there is a 1.3 cm sized smoothly marginated area of increased density likely a hyperdense cyst. Limited evaluation of the abdominal aorta and para-aortic regions show no gross abnormalities. Limited evaluation of the bowel loops and the mesenteries shows descending colon and sigmoid colon diverticulosis. There is no free fluid or free air. Bone window technique throughout the examination shows a sclerotic but somewhat irregular 1.8 cm sized lesion in the L3 vertebral body. Impression IMPRESSION: 1. L3 vertebral body bone lesion as described above. Pre and post gadolinium enhanced MRI is recommended. 2. Benign left adrenal gland mass as described above. 3. Likely benign renal findings as described above, however, since are no priors comparison follow-up with pre and post contrast enhanced examination is recommended. 4. Other findings as described above <Electronically signed by Pawel Sanchez > 08/15/20 1011
--- NOTE | 2020-08-15 10:42 | REP ---
INDICATION: CEA INCREASING MYELOMA COMPARISON: 02/22/2019 the latest prior TECHNIQUE: Limited noncontrast enhanced standard helical technique FINDINGS: There is bulky enlargement of the thyroid gland status quo. Borderline but stable mediastinal lymph nodes are again noted. Borderline or mildly enlarged hilar lymph nodes cannot be ruled out since no intravenous contrast was administered. There are no pleural or pericardial effusions. There is no significant change in appearance of the imaged osseous structures. Evaluation of the lung montes de oca shows no new abnormal nodules, masses, or opacities. Asymmetric pleural thickening is again seen in the left lower lobe status quo. IMPRESSION: Stable CT examination the chest as described above. <Electronically signed by Pawel Sanchez > 08/15/20 1038
== END ==
LOC: M RAD 17:23
PROVIDERS: ATTEND Internal Medicine Hematology & Oncology
DX: I82.90 Acute embolism and thrombosis of unspecified vein (principal); E04.2 Nontoxic multinodular goiter; M50.30 Other cervical disc degeneration, unspecified cervical region; I65.23 Occlusion and stenosis of bilateral carotid arteries; M89.8X8 Other specified disorders of bone, other site; E27.9 Disorder of adrenal gland, unspecified; K57.30 Diverticulosis of large intestine without perforation or abscess without bleeding

== ENCOUNTER → 2020-09-22 | Outpatient (CLI) | payer MEDICARE, OTHER ==
--- NOTE | 2020-09-22 11:27 | REP ---
INDICATION: VARICOSE VEIN YUMIKO LEG W/ PAIN VVI. COMPARISON: None. TECHNIQUE: Multiple ultrasonographic images of the deep venous structures of the bilateral lower extremity were obtained from the inguinal ligament to the ankle. Venous compression techniques, color doppler imaging, and augmentation techniques were also obtained where appropriate. As per the ACR guidelines the anterior tibial vein can not be effectively evaluated. Only compression techniques in the calf on the peroneal and posterior tibial veins was attempted/performed. FINDINGS: There is no abnormal echogenic material seen within any of the visualized deep venous structures that would suggest acute thrombosis. Coaptation is unremarkable throughout. Doppler interrogation shows an expected response to respiratory variability and augmentation in the thigh. Compression techniques in the calf were obtainable. The color flow images show what appears to be a normal vascular pattern throughout the thigh. On the right: Reflux was seen in the common femoral vein. An anterior accessory greater saphenous vein was present with reflux of 4.2 seconds duration Reflux was seen in the greater saphenous vein at the saphenous femoral junction the AP dimension of which measured 9.8 mm Secondary to a vein stripping procedure the greater saphenous vein was not identifiable in the mid thigh or knee Reflux was seen in the superficial femoral vein proximally and in the midportion No reflux was seen in the distal superficial femoral vein No reflux was seen in the popliteal vein No reflux was seen in the lesser saphenous vein the AP dimension of which measured 3.4 mm. On the left: Reflux was seen in the common femoral vein. An anterior accessory greater saphenous vein is present and reflux was noted of 2.5 seconds duration the AP dimension of which measured between 9 and 4 mm Reflux was seen in the greater saphenous vein at the saphenous femoral junction the AP dimension of which measured 8.5 mm Secondary to previous vein stripping procedure the greater saphenous vein was removed at the mid thigh and knee Reflux was seen in the proximal and mid superficial femoral vein No reflux was seen in the distal superficial femoral vein No reflux was seen in the popliteal vein No reflux was seen in the lesser saphenous vein IMPRESSION: There is no ultrasonographic evidence of deep venous thrombosis involving any of the visualized deep venous structures of the bilateral lower extremity as described above. Due to technical parameters calf vein DVT can not be ruled out. Bilateral deep vein reflux and other findings as described above. <Electronically signed by Pawel Sanchez > 09/22/20 [id number]
== END ==
LOC: M RAD 09:37
PROVIDERS: ATTEND Physician Assistant
DX: I83.813 Varicose veins of bilateral lower extremities with pain (principal); I87.2 Venous insufficiency (chronic) (peripheral)

== ENCOUNTER → 2020-10-03 | Outpatient (REF) | payer MEDICARE, OTHER ==
[~2020-10-03] MED LIST changes: +FLEC100T27 GT; -FLEC10TA GT; +GUAI400T12 PO; -[UNRECOGNIZED DRUG - CODE] PO
== END ==
LOC: M LAB REF 15:10
PROVIDERS: ATTEND Internal Medicine Hematology & Oncology
DX: C90.00 Multiple myeloma not having achieved remission (principal)

== ENCOUNTER → 2020-10-15 | Outpatient (CLI) | payer MEDICARE, OTHER ==
[~2020-10-15] MED LIST changes: +LIDOCAINE 1% MDV 20ML VIAL As Ordered ONE
[2020-10-15 12:36] LABS: BASO % 0.3 % (0.0-1.0); EOS # 0.1 10^3/uL (0.0-0.5); EOS % 1.5 % (0.0-3.0); HEMATOCRIT 39.4 % (36.0-47.0); HEMOGLOBIN 12.7 g/dl (12.0-15.5); LYMPH # 1.4 10^3/uL (1.5-5.0); LYMPH % 19.9 % (24.0-44.0); MEAN CORPUSCULAR HGB CONC 32.2 g/dl (32.0-36.5); MEAN CORPUSCULAR VOLUME 102.3 fl (80.0-96.0); MONO # 0.4 10^3/uL (0.0-0.8); NEUTROPHILS # 4.9 10^3/uL (1.5-8.5); NEUTROPHILS % 72.2 % (36.0-66.0); PLATELET COUNT, AUTOMATED 187 10^3/uL (150-450); RED BLOOD COUNT 3.85 10^6/uL (4.00-5.40); WHITE BLOOD COUNT 6.8 10^3/uL (4.0-10.0)
[2020-10-15 14:15] VITALS: BP 154/72
--- NOTE | 2020-10-15 16:26 | REP ---
INDICATION: EVAL FOR MULTIPLE MYELOMA. COMPARISON: None. TECHNIQUE: The procedure was performed under the direct supervision of Dr. Rodriguez. The risks and benefits of the procedure were explained to the patient and informed consent was obtained. The left iliac bone was localized using CT guidance. The skin was prepped and draped in a sterile fashion. 1% lidocaine was used as a local anesthetic. Using CT guidance an 11 gauge bone biopsy system was inserted and 9 cc of marrow fluid was withdrawn. One core sample was then obtained. The patient tolerated the procedure well and there were no immediate complications. After the appropriate amount to monitor convalescence the patient was discharged from the department. FINDINGS: None IMPRESSION: CT-guided left iliac bone marrow biopsy. <Electronically signed by Bebo Coppola > 10/15/20 1622 <Electronically signed by Vikc Rodriguez > 10/15/20 1627
== END ==
LOC: M IRPRO 11:56
PROVIDERS: ATTEND Internal Medicine Hematology & Oncology
DX: C90.00 Multiple myeloma not having achieved remission (principal)

== ENCOUNTER → 2020-10-31 | Outpatient (CLI) | payer MEDICARE, OTHER ==
[~2020-10-31] MED LIST changes: -LIDOCAINE 1% MDV 20ML VIAL As Ordered ONE; +PROHANCE 279.3MG/ML 15ML VIAL As Ordered ONE; +PROHANCE 279.3MG/ML 5ML VIAL As Ordered ONE
--- NOTE | 2020-10-31 20:33 | REPVR ---
PROCEDURE INFORMATION: Exam: MR Lumbar Spine Without and With Contrast Exam date and time: 10/31/2020 6:49 PM Age: 65 years old Clinical indication: Condition or disease; Bone lesion, lumbosacral; Patient HX: Vertebral lesions TECHNIQUE: Imaging protocol: Multiplanar magnetic resonance images of the lumbar spine without and with intravenous contrast. Contrast material: PROHANCE; Contrast volume: 20 ml; Contrast route: INTRAVENOUS (IV); COMPARISON: CT ABD PELVIS W/O CONTRAST 08/14/2020 6:05 PM FINDINGS: Vertebrae: Degenerative disc disease and facet arthrosis is present throughout the lumbar spine. Small vertebral hemangiomas within T12 , L3 and S1. There is a low signal/signal void lesion measuring approximately 1.5 cm long by 1.5 cm AP x 1.1 cm transverse within the right side of the L3 vertebral body. This corresponds to the densely sclerotic lesion seen on prior CT scan performed on 08/14/2020. The findings are consistent with a large bone island. A sclerotic metastatic lesion is unlikely. If the patient has a known underlying malignancy with a propensity to metastasized to bone then further evaluation with radionuclide bone scan is recommended. If the patient has no underlying known malignancy then follow-up imaging (MRI or CT) in 6 months is recommended to confirm stability. Spinal cord: The lower thoracic cord has a normal appearance and the conus terminates at the level of the T12 inferior endplate. L1-L2: Minimal retrolisthesis of L1. Mild posterior broad-based disc bulge. Bilateral facet hypertrophy and ligamentum flavum thickening. Mild spinal stenosis. L2-L3: Minimal retrolisthesis of L2. Posterior broad-based disc protrusion. Bilateral facet hypertrophy and ligamentum flavum thickening. Moderate severe spinal stenosis. L3-L4: Posterior broad-based disc protrusion, bilateral facet hypertrophy and ligamentum flavum thickening. Moderate spinal stenosis. L4-L5: Grade 1 anterolisthesis of L4 with mild disc uncovering. No focal disc protrusion. Bilateral facet hypertrophy and ligamentum flavum thickening. Mild to moderate spinal stenosis. L5-S1: No disc protrusion or spinal stenosis. Bilateral facet hypertrophy. Soft tissues: Unremarkable. IMPRESSION: 1. Degenerative spondylosis of the lumbar spine with varying degrees of spinal stenosis as described above. 2. Low signal/signal void lesion measuring 15 mm within the L3 vertebral body consistent with a large bone island. A sclerotic metastatic lesion is unlikely. If the patient has a known underlying malignancy with a propensity to metastasized to bone then further evaluation with radionuclide bone scan is recommended. If the patient has no underlying known malignancy then follow-up imaging (MRI or CT) in 6 months is recommended to confirm stability. Electronically signed by: Hunter Olson On 10/31/2020 20:33:03 PM
== END ==
LOC: M RAD 16:39
PROVIDERS: ATTEND Internal Medicine Medical Oncology
DX: C90.00 Multiple myeloma not having achieved remission (principal); M51.36 Other intervertebral disc degeneration, lumbar region; M51.26 Other intervertebral disc displacement, lumbar region; M47.816 Spondylosis without myelopathy or radiculopathy, lumbar region; M89.8X8 Other specified disorders of bone, other site
CPT/HCPCS: 72158; A9576

== ENCOUNTER → 2021-01-07 | Outpatient (REF) | payer MEDICARE, OTHER ==
[~2021-01-07] MED LIST changes: -PROHANCE 279.3MG/ML 15ML VIAL As Ordered ONE; -PROHANCE 279.3MG/ML 5ML VIAL As Ordered ONE
== END ==
LOC: M LAB REF 16:14
PROVIDERS: ATTEND Physician Assistant Medical
DX: S81.802A Unspecified open wound, left lower leg, initial encounter (principal); X58.XXXA Exposure to other specified factors, initial encounter; Y92.89 Other specified places as the place of occurrence of the external cause; Y93.9 Activity, unspecified; Y99.9 Unspecified external cause status

== ENCOUNTER 2021-01-26 14:39 | Emergency (ER) | payer MEDICARE, OTHER ==
[~2021-01-26] VITALS: Ht 167.6 cm; Wt 100.0 kg
[~2021-01-26 14:39] MED LIST changes: -GUAI400T12 PO; +GUAI400T41 PO
--- OUTSIDE RECORDS SUMMARY | 2021-01-26 14:45 | CCD | Continuity of Care Document ---
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 AUTM [phone] Problems Active Problems Provider Date Chronic atrial [...] Consumes 3 glasses of wine per w [place] Tobacco Use Start: Unknown Patient is a current smoker, smo kes every day STARTED AGE 29 1-3 CIGARETTES A DAY Allergies and adverse reactions Active Allergies Criticality Reaction | Severity Comments Date Ibuprofen Unable to assess criticality STOMACH UPSET HEADACHE mo mynor 01/18/2017 Latex Unable to assess criticality rash, itches | Mild 01/18/2018 Medications Active Medications SIG Qnty Indications Ordering Provide r Date Cephalexin 500mg Capsules take one tablet by mouth 3 times daily x 7 days 21caps Lauri grey JR PA 01/07/2021 Excedrin Migraine [phone] Tab lets 1 as needed h/a as needed mdd=1 Zehra Sprague M.D. 06/18/2020 Famotidine 20mg Tablets 1 by mouth every day 90tabs Zehra Sprague M.D. 06/18/19 21 Furosemide 20mg Tablets 1 by mouth twice a day 180tabs Zehra Sprague M.D. 06/18/19 21 Bupropion Hydrochloride ER (XL) 150mg Tablets ER 24HR take 1 tablet by mouth in the morning 90tabs Zehra Sprague M.D. 05/05/2020 Eliquis 5mg Tablets take one tablet by mouth twice a day 180tabs Zehra Sprague M.D. 2019 Methimazole 5mg Tablets 2 every day by mouth 180tabs Zehra Sprague M.D. 07/02/19 20 Shingrix 50mcg/0.5ML Suspension Re c administer at pharmacy 1units Glenna Guajardo FNP 05/23 Voltaren 1% Gel apply up to 4 grams three times a day to affected knee as needed 100gm Zehra Sprague M.D. 03/17/2018 Aspirin Adult Low Dose 81mg Tablet s DR 1 by mouth every day Glenna Guajardo FNP 7 Acetaminophen Extra Strength 500mg Tablets take 2 tabs every 6 hours as needed Glenna Ruffin FNP 01/18/2017 Womens 50+ Multi Vitamin & Mineral Formu la Tablets 1 every day PO Vit [id number] Glenna Guajardo FNP 01/18/2017 Metoprolol Tartrate 25mg Tablets Take One Tablet By Mouth Twice A Day 180tabs David Zamora 01/18/2017 Atorvastatin Calcium 20mg Tablets take one tablet by mouth every day 90tabs Jonah Zamora 01/18/2017 Flecainide Acetate 100mg Tablets take one tablet by mouth twice a day 180tabs David Zamora 01/18/2017 Digoxin 250mcg Tablets 1 by mouth every day 90tabs Zehra Sprague M.D. Medications Administered in Office Medication SIG Qnty Indications Ordering Provider Date Administration Of Flu Vaccine Inj christianoion Zehra Sprague M.D. 01/17/20 20 Administration Of Flu Vaccine Inj ection Glenna Guajardo FNP 01/18/2019 Administration Of Flu Vaccine Inj ection Glenna Guajardo FNP 01/18/2018 Administration Of Flu Vaccine Inj ection Glenna Guajardo FNP 01/18/2017 Immunizations CPT Code Status Date Vaccine Lot # [id number] Given 01/07/2021 Influenza Vaccin e Quadrivalent Preser/Antibiotic Free Im Use [id number] 06177 Given 01/17/2020 Influenza Vaccin e Quadrivalent Preser/Antibiotic Free Im Use [id number] 33144 Given 05/29/2019 Shingrix Zoster Vaccine (HZV), Recombinant, Subunit, Adjuvanted 31135 Given 01/18/2019 Influenza Vaccin e Quadrivalent Preser/Antibiotic Free Im Use 255695 56932 Given 01/18/2018 Influenza Virus Vaccine, Quadrivalent ([id number]), Derived From 9 Given 04/22/2017 Pneumovax 23 [id number] 63069 Given 01/18/2017 Influenza Vaccin e Quadrivalent Preser/Antibiotic Free Im Use [id number] Vital Signs Date Vital Result Comment 01/07/2021 2:17pm BP Systolic 124 mmHg BP Diastolic 68 mmHg Heart Rate 86 /min Height 66 inches 5'6" Weight 217.00 lb BMI (Body Mass Index) 35.0 kg/m2 09/22/2020 1:31pm BP Systolic 136 mmHg RT Arm BP Diastolic 88 mmHg RT Arm Heart Rate 120 /min Height 66 inches 5'6" Weight 223.50 lb BMI (Body Mass Index) 36.1 kg/m2 Results Test Acquired Date Facility Test Result H/L Range Note Laboratory test finding 01/07/2021 [facility] [address] [place] [address] [phone] Wound Culture <pending> CBC With Differential 10/15/2020 [facility] [address] [place] [address] [phone] White Blood Count 6.8 10 Normal 4.0-10.0 Red Blood Count 3.85 10 Low 4.00-5.40 Hemoglobin 12.7 g/dL Normal 12.0-15.5 Hematocrit 39.4 % Normal 36.0-47.0 Mean Corpuscular Volume 102.3 fl High 80.0-96.0 Mean Corpuscular Hemoglobin 33.0 pg Normal 27.0-33.0 Mean Corpuscular HGB Conc 32.2 g/dL Normal 32.0-36.5 Red Cell Distribution Width 12.3 % Normal 11.5-14.5 Platelet Count, Automated 187 10 Normal 150-450 Neutrophils % 72.2 % High 36.0-66.0 Lymph % 19.9 % Low 24.0-44.0 [place] % 6.0 % Normal 2.0-8.0 Eos % 1.5 % Normal 0.0-3.0 Baso % 0.3 % Normal 0.0-1.0 Immature Granulocyte % 0.1 % Normal 0-3.0 Nucleated Red Blood Cell % 0.0 % Normal 0-0 Neutrophils # 4.9 10 Normal 1.5-8.5 Lymph # 1.4 10 Low 1.5-5.0 [place] # 0.4 10 Normal 0.0-0.8 Eos # 0.1 10 Normal 0.0-0.5 Baso # 0.0 10 Normal 0.0-0.2 PT & Aptt 09/30/2020 [facility] nter [address] [place] [address] [phone] Prothrombin Time 13.8 seconds Normal 12.5-14.3 Inr 1.04 Normal 1 Partial Thromboplastin Time 30.6 seconds Normal 24.2-38.5 CBC With Differential 09/30/[address] [address] [phone] White Blood Count 6.2 10 Normal 4.0-10.0 Red Blood Count 3.76 10 Low 4.00-5.40 Hemoglobin 12.5 g/dL Normal 12.0-15.5 Hematocrit 39.0 % Normal 36.0-47.0 Mean Corpuscular Volume 103.7 fl High 80.0-96.0 Mean Corpuscular Hemoglobin 33.2 pg High 27.0-33.0 Mean Corpuscular HGB Conc 32.1 g/dL Normal 32.0-36.5 Red Cell Distribution Width 12.9 % Normal 11.5-14.5 Platelet Count, Automated 199 10 Normal 150-450 Neutrophils % 74.5 % High 36.0-66.0 Lymph % 16.4 % Low 24.0-44.0 [place] % 7.0 % Normal 2.0-8.0 Eos % 1.1 % Normal 0.0-3.0 Baso % 0.5 % Normal 0.0-1.0 Immature Granulocyte % 0.5 % Normal 0-3.0 Nucleated Red Blood Cell % 0.0 % Normal 0-0 Neutrophils # 4.6 10 Normal 1.5-8.5 Lymph # 1.0 10 Low 1.5-5.0 [place] # 0.4 10 Normal 0.0-0.8 Eos # 0.1 10 Normal 0.0-0.5 Baso # 0.0 10 Normal 0.0-0.2 Comprehensive Metabolic Profil 09/30/[address] [address] [phone] Glucose, Fasting 98 mg/dL Normal 70-100 Blood Urea Nitrogen 28 mg/dL High 7-18 Creatinine For GFR 0.90 mg/dL Normal 0.55-1.30 Glomerular Filtration Rate > 60.0 Normal >45 2 Sodium Level 137 mEq/L Normal 136-145 Potassium Serum 4.7 mEq/L Normal 3.5-5.1 Chloride Level 107 mEq/L Normal 98-107 Carbon Dioxide Level 27 mEq/L Normal 21-32 Anion Gap 3 mEq/L Low 8-16 Calcium Level 10.2 mg/dL Normal 8.8-10.2 Ast/Sgot 23 U/L Normal 7-37 Alt/SGPT 19 U/L Normal 12-78 Alkaline Phosphatase 77 U/L Normal 45-117 Bilirubin,Total 0.5 mg/dL Normal 0.2-1.0 Total Protein 8.3 GM/DL High 6.4-8.2 Albumin 3.0 GM/DL Low 3.2-5.2 Albumin/Globulin Ratio 0.6 Low 1.2-2.2 Complete Blood Count 09/22/2020 [facility] Epitaxial Reactor Operator: [place] [address] [phone] WBC 5.9 x10*3/UL 4.1 - 10.9 RBC 4.11 x10*6/UL Low 4.20 - 6.30 Hemoglobin 13.6 g/dL 12.0 - 18.0 Hematocrit 40.0 % 37.0 - 51.0 MCV 97.4 fL High 80.0 - 97.0 MCH 33.1 pg High 26.0 - 32.0 MCHC 34.0 g/dL 31.0 - 38.0 RDW 13.2 % 11.6 - 13.7 PLT 209 x10*3/UL 140 - 440 MPV 8.1 FL 7.8 - 11.0 Lymph % 25.6 % 10.0 - 58.5 Mid % 7.5 % 1.7 - 9.3 Neut % 66.9 % 37.0 - 92.0 Lymph # 1.5 x10*3/UL 0.6 - 4.1 Mid # 0.5 x10*3/UL 0.1 - 0.6 Neut # 3.9 x10*3/UL 2.0 - 7.8 Laboratory test finding 09/22/2020 [facility] Epitaxial Reactor Operator: [place] [address] [phone] Sed Rate 25 mm/hr High 0 - 15 Basic Metabolic Panel 09/22/2020 [facility] [employer] Reactor Operator: [place] [address] [phone] Glucose 100 mg/dL High 74 - 99 3 BUN 18 mg/dL 7 - 18 Creatinine 0.8 mg/dL 0.6 - 1.3 Sodium 141 mEq/L 136 - 145 Potassium 3.8 mEq/L 3.5 - 5.1 Chloride 104 mEq/L 98 - 107 Carbon Dioxide 29 mEq/L 21 - 32 Calcium 10.8 mg/dL High 8.5 - 10.1 4 GFR >= 60 mL/min >60 GFR >= 60 mL/min >60 5 Laboratory test finding 09/22/2020 [facility] kristin ruth Ep[employer] Reactor Operator: [place] [address] [phone] Thyroid Stimulating Hormone 0.19 uIU/mL Low 0.3 6 - 3.74 Lipid Profile 07/24/2020 [facility] Re[facility] Operator: [place] [address] [phone] Cholesterol 132 mg/dL 131 - 200 Triglycerides 72 mg/dL 30 - 150 HDL Cholesterol 54 mg/dL 35 - 60 LDL (Calculated) 64 CALC 50 - 159 Laboratory test finding 07/24/[address] [id number] [phone] Digoxin Level 0.3 NG/ML Low 0.5-2.0 6 Laboratory test finding 07/24/2020 [facility] kristin ruth [employer] Reactor Operator: Dr Terrance Matson [place], [place] [id number] [phone] Thyroid Stimulating Hormone 0.32 uIU/mL Low 0.3 6 - 3.74 Basic Metabolic Panel 07/24/2020 [facility] [employer] Reactor Operator: Dr Terrance Matson [place], [place] [id number] [phone] Glucose 70 mg/dL Low 74 - 99 7 BUN 23 mg/dL High 7 - 18 Creatinine 0.9 mg/dL 0.6 - 1.3 Sodium 144 mEq/L 136 - 145 Potassium 3.8 mEq/L 3.5 - 5.1 Chloride 104 mEq/L 98 - 107 Carbon Dioxide 32 mEq/L 21 - 32 Calcium 10.1 mg/dL 8.5 - 10.1 GFR >= 60 mL/min >60 GFR >= 60 mL/min >60 8 Laboratory test finding 07/24/2020 [facility] kristin ruth Ep[employer] Reactor Operator: [place] [address] [phone] Sed Rate 45 mm/hr High 0 - 15 Magnesium 1.8 mg/dL 1.8 - 2.4 Complete Blood Count 07/24/2020 [facility] Ep[employer] Reactor Operator: [place] [address] [phone] WBC 8.4 x10*3/UL 4.1 - 10.9 RBC 4.20 x10*6/UL 4.20 - 6.30 Hemoglobin 14.0 g/dL 12.0 - 18.0 Hematocrit 40.3 % 37.0 - 51.0 MCV 95.8 fL 80.0 - 97.0 MCH 33.3 pg High 26.0 - 32.0 MCHC 34.7 g/dL 31.0 - 38.0 RDW 13.3 % 11.6 - 13.7 PLT 207 x10*3/UL 140 - 440 MPV 8.0 FL 7.8 - 11.0 Lymph % 17.5 % 10.0 - 58.5 Mid % 4.8 % 1.7 - 9.3 Neut % 77.7 % 37.0 - 92.0 Lymph # 1.4 x10*3/UL 0.6 - 4.1 Mid # 0.5 x10*3/UL 0.1 - 0.6 Neut # 6.5 x10*3/UL 2.0 - 7.8 Ua Routine 07/16/2020 [facility] nter [address] [place] [address] [phone] Appearance, Urine CLEAR Normal Clear Color, Urine PRAMOD Normal Yellow PH,Urine 5.0 units Normal 5.0-9.0 Specific [place] Urine Auto 1.028 Normal 1.002-1.035 Protein, Urine Auto 2+ mg/dL High Negative Glucose, Urine (Ua) Auto NEGATIVE mg/dL Normal Negative Ketone, Urine Auto TRACE mg/dL High Negative Urobilinogen, Urine Auto 4.0 mg/dL High 0.0-2.0 Bilirubin, Urine Auto NEGATIVE Normal Negative Nitrite, Urine Auto NEGATIVE Normal Negative Leukocyte Esterase, Urine Auto NEGATIVE Normal Negative Blood, Urine Blood NEGATIVE Normal Negative WBC, Urine Auto 2 /HPF Normal 0-3 RBC, Urine Auto 2 /HPF Normal 0-3 Bacteria, Urine Auto 1+ High Negative Squamous Epithelial Cell Ur AU 0 /HPF Normal 0-6 Mucus, Urine SMALL Normal Negative Hyaline Cast, Urine Auto 0 /LPF Normal 0-1 CBC With Differential 07/16/[address] [address] [phone] White Blood Count 7.6 10 Normal 4.0-10.0 Red Blood Count 4.29 10 Normal 4.00-5.40 Hemoglobin 13.9 g/dL Normal 12.0-15.5 Hematocrit 43.3 % Normal 36.0-47.0 Mean Corpuscular Volume 100.9 fl High 80.0-96.0 Mean Corpuscular Hemoglobin 32.4 pg Normal 27.0-33.0 Mean Corpuscular HGB Conc 32.1 g/dL Normal 32.0-36.5 Red Cell Distribution Width 13.1 % Normal 11.5-14.5 Platelet Count, Automated 175 10 Normal 150-450 Neutrophils % 73.1 % High 36.0-66.0 Lymph % 18.1 % Low 24.0-44.0 [place] % 6.8 % Normal 2.0-8.0 Eos % 1.3 % Normal 0.0-3.0 Baso % 0.3 % Normal 0.0-1.0 Immature Granulocyte % 0.4 % Normal 0-3.0 Nucleated Red Blood Cell % 0.0 % Normal 0-0 Neutrophils # 5.6 10 Normal 1.5-8.5 Lymph # 1.4 10 Low 1.5-5.0 [place] # 0.5 10 Normal 0.0-0.8 Eos # 0.1 10 Normal 0.0-0.5 Baso # 0.0 10 Normal 0.0-0.2 Laboratory test finding 07/16/2020 [facility] [address] [place] [address] [phone] Erythrocyte Sedimentation Rate 68 mm/hr High 0 -30 Comprehensive Metabolic Profil 07/16/2020 [place] [address] [place] [address] [phone] Glucose, Fasting 97 mg/dL Normal 70-100 Blood Urea Nitrogen 24 mg/dL High 7-18 Creatinine For GFR 0.85 mg/dL Normal 0.55-1.30 Glomerular Filtration Rate > 60.0 Normal >45 9 Sodium Level 139 mEq/L Normal 136-145 Potassium Serum 4.6 mEq/L Normal 3.5-5.1 Chloride Level 106 mEq/L Normal 98-107 Carbon Dioxide Level 26 mEq/L Normal 21-32 Anion Gap 7 mEq/L Low 8-16 Calcium Level 11.8 mg/dL High 8.8-10.2 Ast/Sgot 33 U/L Normal 7-37 Alt/SGPT 44 U/L Normal 12-78 Alkaline Phosphatase 116 U/L Normal 45-117 Bilirubin,Total 0.6 mg/dL Normal 0.2-1.0 Total Protein 8.9 GM/DL High 6.4-8.2 Albumin 3.2 GM/DL Normal 3.2-5.2 Albumin/Globulin Ratio 0.6 Low 1.2-2.2 Total Iron Binding Capacit 07/16/2020 [place] [id number] [phone] Iron (Fe) 131 g/dL Normal 50-170 Total Iron Binding Capacity 305 g/dL Normal 250-450 Percent Saturation 43.0 % Normal 13.2-45.0 Immunoglobulin G,A,M 07/16/[address] [address] [phone] Immunoglobulin A 2640.0 mg/dL High 70-400 Immunoglobulin G 510 mg/dL Low 681-1648 Immunoglobulin M < 5.3 mg/dL Low 40-230 Immunotyping (Immunofixation) Serum (If 07/16/[address] [address] [phone] Immunotyping Serum Iga ABNORMAL High Normal Immunotyping Serum Lambda ABNORMAL High Normal It Serum Interpretation SEE COMMENT Normal 10 Its Pathologist Review REV'D BY O ADJAP <SEE NOTE> Normal 11 Laboratory test finding 07/16/[address] [address] [phone] Ferritin 128 NG/ML Normal 8-252 12 Beta 2 Microglobulin 3.7 mg/L High 0.6-2.4 13 Free Decker & Lambda LT Chains 07/16/2020 [place] [address] [place] [id number] [phone] Free Decker Light Chains Serum 6.4 mg/L Normal 3. 3-19.4 Free Lambda Light Chains Serum 517.2 mg/L High 5.7-26.3 Decker/Lambda Ratio Serum 0.01 Low 0.26-1.65 1 THERAPUTIC HUMAN INR VALUES INDICATIONS NORMAL RANGES PROPHYLAXIS/TREATMENT OF: VENOUS THROMBOSIS 2.0-3.0 PULMONARY EMBOLISM 2.0-3.0 PREVENTION OF SYSTEMIC EMBOLISM FROM: TISSUE HEART VALVES 2.0-3.0 ACUTE MYOCARDIAL INFARCTION 2.0-3.0 VALVULAR HEART DISEASE 2.0-3.0 ATRIAL FIBRILLATION 2.0-3.0 MECHANICAL VALVES(HIGH RISK) 2.5-3.5 RECURRENT MYOCARDIAL INFARCTION 2.5-3.5 2 Units are mL/min/1.73 m2 Chronic Kidney Disease Staging per NKF: Stage I & II GFR >=60 Normal to Mildly Decreased Stage III GFR 30-59 Moderately Decreased Stage IV GFR 15-29 Severely Decreased Stage V GFR <15 Very Little GFR Left ESRD GFR <15 on KEY PERSON 3 100-125 mg/dL PRE-DIABET ES/FASTING >126 mg/dL DIABETES/FASTING 4 NOTE: CALCIUM,TSH VERIFIED 5 CHRONIC KIDNEY DISEASE STAGI NG PER NKF STAGE I & II GFR >= 60 NORMAL TO MILDLY DECREASED STAGE III GFR 30-59 MODERATELY DECREASED STAGE IV GFR 15-29 SEVERELY DECREASED STAGE V GFR <15 VERY LITTLE GFR LEFT ESRD GFR <15 ON KEY PERSON 6 note:<nlbl:demographic_chang ed> 7 100-125 mg/dL PRE-DIABET ES/FASTING >126 mg/dL DIABETES/FASTING 8 CHRONIC KIDNEY DISEASE STAGI NG PER NKF STAGE I & II GFR >= 60 NORMAL TO MILDLY DECREASED STAGE III GFR 30-59 MODERATELY DECREASED STAGE IV GFR 15-29 SEVERELY DECREASED STAGE V GFR <15 VERY LITTLE GFR LEFT ESRD GFR <15 ON KEY PERSON 9 Units are mL/min/1.73 m2 Chronic Kidney Disease Staging per NKF: Stage I & II GFR >=60 Normal to Mildly Decreased Stage III GFR 30-59 Moderately Decreased Stage IV GFR 15-29 Severely Decreased Stage V GFR <15 Very Little GFR Left ESRD GFR <15 on KEY PERSON 10 MONOCLONAL IGA,LAMBDA 11 REV'D BY Delbert WERNER 12 note:<nlbl:demographic_chang ed> 13 Siemens Immulite 2000 Immuno chemiluminometric assay (ICMA) . Values obtained with different assay methods or kits cannot be used interchangeably. Results cannot be interpreted as absolute evidence of the presence or absence of malignant disease. Performed at: - [facility] [address] [id number] Epitaxial Reactor Operator: Nataliya Owen MD, Phone: [phone] Performed at: - [facility] [address] [id number] Epitaxial Reactor Operator: Aaliyah Posadas MD, Phone: [phone] Procedures Date Code Description Status 11/14/2020 11250 Chronic Care MGMT 20 Mins Clinical Staff Time Per Calendar Month Completed 11/14/2020 85747 Chronic Care Management Services Ea Addl 20 Min Completed 10/28/2020 19730 Complex Chronic Care MGMT Servic e Ea Addl 30 Min Completed 10/28/2020 97806 Complex Chronic Care Management SVC 1St 60 Min Completed 09/26/2020 52060 Complex Chronic Care MGMT Servic e Ea Addl 30 Min Completed 09/26/2020 32058 Complex Chronic Care Management SVC 1St 60 Min Completed 09/22/2020 50130 Office/Outpatient Established Mo d MDM 30-39 Min Completed 08/25/2020 65953 Complex Chronic Care MGMT Servic e Ea Addl 30 Min Completed 08/25/2020 72706 Complex Chronic Care Management SVC 1St 60 Min Completed 07/25/2020 17118 Complex Chronic Care MGMT Servic e Ea Addl 30 Min Completed 07/25/2020 26514 Complex Chronic Care Management SVC 1St 60 Min Completed 07/24/2020 41844 Office/Outpatient Established Mo d MDM 30-39 Min Completed 06/19/2020 [id number] Bone Mineral Density Test Comple elmer 06/19/2020 63012311 Mammogram Completed Medical Devices Description No Information Available Encounters Type Date Location Provider Dx Diagnosis Office Visit 09/22/2020 1:30p [facility] Spr[facility] M.[facility]. I48.20 Chronic atrial fibrillation, unspecified Z79.01 penitentiary (current) use of a nticoagulants R60.9 Edema, unspecified I10 Essential (primary) hyperten juanita E05.90 Thyrotoxicosis, unsp without thyrotoxic crisis or storm I82.502 Chronic embolism and [place] unsp deep veins of l low extrem F17.210 Nicotine dependence, cigaret madhu, uncomplicated F32.89 Other specified depressive e pisodes D47.2 Monoclonal gammopathy K21.9 Gastro-esophageal reflux dis ease without esophagitis M19.90 Unspecified osteoarthritis, unspecified site E78.00 Pure hypercholesterolemia, u nspecified Office Visit 07/24/2020 1:30p [facility] Charan Sprgaue M.D. I48.20 Chronic atrial fibrillation, unspecified I10 Essential (primary) hyperten juanita E05.90 Thyrotoxicosis, unsp without thyrotoxic crisis or storm I82.502 Chronic embolism and [place] unsp deep veins of l low extrem Z79.01 penitentiary (current) use of a nticoagulants F17.210 Nicotine dependence, cigaret madhu, uncomplicated F32.89 Other specified depressive e pisodes E83.52 Hypercalcemia D47.2 Monoclonal gammopathy K21.9 Gastro-esophageal reflux dis ease without esophagitis M15.9 Polyosteoarthritis, unspecif ied E78.00 Pure hypercholesterolemia, u nspecified Assessments Date Code Description Provider 01/07/2021 S81.802A Unspecified open wound, left low er leg, initial encounter WENDY Mancilla JR 11/14/2020 I10 Essential (primary) hypertension Zehra Sprague M.D. 11/14/2020 K21.9 Gastro-esophageal reflux disease without esophagitis Zehra Sprague M.D. 11/14/2020 E78.00 Pure hypercholesterolemia, unspe cified Zehra Sprague M.D. 10/28/2020 I10 Essential (primary) hypertension Zehra Sprague M.D. 10/28/2020 K21.9 Gastro-esophageal reflux disease without esophagitis Zehra Sprague M.D. 10/28/2020 E78.00 Pure hypercholesterolemia, unspe cified Zehra Sprague M.D. 10/28/2020 M15.9 Polyosteoarthritis, unspecified Zehra Sprague M.D. 09/26/2020 I10 Essential (primary) hypertension Zehra Sprague M.D. 09/26/2020 K21.9 Gastro-esophageal reflux disease without esophagitis Zehra Sprague M.D. 09/26/2020 I82.502 Chronic embolism and thrombosis of unspecified deep veins of left lower extremity Zehra Sprague M.D. 09/22/2020 I48.20 Chronic atrial fibrillation, uns pecified Zehra Sprague M.D. 09/22/2020 Z79.01 penitentiary (current) use of antic oagulants Zehra Sprague M.D. 09/22/2020 R60.9 Edema, unspecified Zehra flores M.D. 09/22/2020 I10 Essential (primary) hypertension Zehra Sprague M.D. 09/22/2020 E05.90 Thyrotoxicosis, unspecified with out thyrotoxic crisis or sto Zehra Sprague M.D. 09/22/2020 I82.502 Chronic embolism and thrombosis of unspecified deep veins of left lower extremity Zehra Sprague M.D. 09/22/2020 F17.210 Nicotine dependence, cigarettes, uncomplicated Zehra Sprague M.D. 09/22/2020 F32.89 Other specified depressive episo ladarius Zehra Sprague M.D. 09/22/2020 D47.2 Monoclonal gammopathy Zehra chua M.D. 09/22/2020 K21.9 Gastro-esophageal reflux disease without esophagitis Zehra Sprague M.D. 09/22/2020 M19.90 Unspecified osteoarthritis, unsp ecified site Zehra Sprague M.D. 09/22/2020 E78.00 Pure hypercholesterolemia, unspe cified Zehra Sprague M.D. 08/25/2020 I10 Essential (primary) hypertension Zehra Sprague M.D. 08/25/2020 K21.9 Gastro-esophageal reflux disease without esophagitis Zehra Sprague M.D. 08/25/2020 E78.00 Pure hypercholesterolemia, unspe cified Zehra Sprague M.D. 07/25/2020 I48.20 Chronic atrial fibrillation, uns pecsteff Sprague M.D. 07/25/2020 F17.210 Nicotine dependence, cigarettes, uncomplicated Zehra Sprague M.D. 07/25/2020 K21.9 Gastro-esophageal reflux disease without esophagitis Zehra Sprague M.D. 07/25/2020 E78.00 Pure hypercholesterolemia, unspe cisue Sprague M.D. 07/24/2020 I48.20 Chronic atrial fibrillation, uns krish Sprague M.D. 07/24/2020 I10 Essential (primary) hypertension Zehra Sprague M.D. 07/24/2020 E05.90 Thyrotoxicosis, unspecified with out thyrotoxic crisis or sto Zehra Sprague M.D. 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 07/24/2020 Z79.01 penitentiary (current) use of antic oagulants Zehra Sprague M.D. 07/24/2020 F17.210 Nicotine dependence, cigarettes, uncomplicated Zehra Sprague M.D. 07/24/2020 F32.89 Other specified depressive episo ladarius Zehra Sprague M.D. 07/24/2020 E83.52 Hypercalcemia Zehra buitrago M.D. 07/24/2020 D47.2 Monoclonal gammopathy Zehra chua M.D. 07/24/2020 K21.9 Gastro-esophageal reflux disease without esophagitis Zehra Sprague M.D. 07/24/2020 M15.9 Polyosteoarthritis, unspecified Zehra Sprague M.D. 07/24/2020 E78.00 Pure hypercholesterolemia, unspe cified Zehra Sprague M.D. Plan of Treatment Future Appointment(s):* 03/11/2021 3:15 pm - [facility] 01/07/2021 - WENDY Mancilla JR* S81.802A Unspecified open wound, left lower leg, initial encounter * All * New Medication:* Cephalexin 500 mg - take one tablet by mouth 3 times daily x 7 days Functional Status Description No Information Available Mental Status Description No Information Available Referrals Description No Information Available
--- OUTSIDE RECORDS SUMMARY | 2021-01-26 14:45 | CCD ---
Author Author [facility] [employer] Organization [facility] [employer] Address Unknown Phone Unavailable Care Team Providers Care Tower Dragline Operator Name Role Phone Gurvinderalejandrina Arvin Unavailable PROBLEMS Type Condition ICD9-CM Code [id number] Code Onset Dates Condition S tatus W/U Status Risk SNOMED Code Notes Problem Non-pressure chronic ulcer o f other part of left lower leg with fat layer exposed L97.822 Active confirmed 54301812 Problem Chronic venous hypertension (idiopathic) with ulcer of left lower extremity I87.312 Active confirmed [id number] ALLERGIES Allergen (clinical drug ingredient) Drug/Non Drug Allergy do cumented on EMR Reaction Allergy Type Onset Date Status Motrin Dyspnea Drug Allergy Active ENCOUNTERS from 1955 to 2021-01-22 Encounter Location Date Provider Diagnosis [facility] [address] [facility] [phone] [place] [address] Jan, Arvin Jhaveri IMMUNIZATIONS No Information SOCIAL HISTORY Tobacco Use: Social History Observation Description Date Details (start date - stop date) Current Smoker Sex Assigned At : Social History Observation Description Sex Assigned At Unknown Education: Question Answer Notes Level of Education: Finished High School Mandaen: Question Answer Notes Mandaen CAODAISM Sexual Hx: Question Answer Notes Had sex in the last 12 months (vaginal, oral, or anal)? 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 No Tobacco Use: Question Answer Notes Are you a: current smoker How many cigarettes a day do you smoke? 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, MOST RECENT 1987 Medical History HYPERTENSION Surgical History GALLBLADDER REMOVAL Surgical History STRIPPING LIGATION IN BILATERAL LEGS Surgical History TONSILLECTOMY Surgical History RIGHT SHOULDER SURGERY Hospitalization History HOSPITALIZATION AFTER SHOULDER SURGE RY Goals Section No Information Health Concerns No Information MEDICAL EQUIPMENT No Information MENTAL STATUS No Information FUNCTIONAL STATUS No Information ASSESSMENTS No Information PLAN OF TREATMENT Next Appt Details Provider Name:Yamini Hunt, 01-29 09:45:00 AM, [address], , [place], [address], Insurance Providers Payer Name Payer Address Payer Phone Insured Name Patient Relati onship to Insured Coverage Start Date Coverage End Date FOR LIFE [address] [facility] [phone] JUAN CARLOS SMITH self MEDICARE Part A and B [address] [facility] [address] [phone] JUAN CARLOS SMITH self
--- OUTSIDE RECORDS SUMMARY | 2021-01-26 14:45 | CCD | Continuity of Care Document ---
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 01/17/20 20 Administration Of Flu Vaccine Inj christianoion Glenna Guajardo FNP 01/18/2019 Administration Of Flu Vaccine Inj ection Glenna Guajardo FNP 01/18/2018 Administration Of Flu Vaccine Inj Glenna Noguera FNP 01/18/2017 Immunizations CPT Code Status Date Vaccine Lot # [id number] Given 01/07/2021 Influenza Vaccin e Quadrivalent Preser/Antibiotic Free Im Use [id number] 75520 Given 01/17/2020 Influenza Vaccin e Quadrivalent Preser/Antibiotic Free Im Use [id number] [id number] Given 05/29/2019 Shingrix Zoster Vaccine (HZV), Recombinant, Subunit, Adjuvanted 88864 Given 01/18/2019 Influenza Vaccin e Quadrivalent Preser/Antibiotic Free Im Use 093912 72854 Given 01/18/2018 Influenza Virus Vaccine, Quadrivalent ([id number]), Derived From 6 Given 04/22/2017 Pneumovax 23 [id number] Given 01/18/2017 Influenza Vaccin e Quadrivalent Preser/Antibiotic Free Im Use [id number] Vital Signs Date Vital Result Comment 01/07/2021 [...] H/L Range Note Laboratory test finding 01/07/2021 [facility] [address] [place] [address] [phone] Wound Culture <pending> CBC With Differential 10/15/2020 [facility] [address] [place] [address] [phone] White Blood Count 6.8 10 Normal 4.0-10.0 [...] 36.0-66.0 Lymph % 19.9 % Low 24.0-44.0 Haines % 6.0 % Normal 2.0-8.0 Eos % 1.5 % Normal 0.0-3.0 Baso % 0.3 % Normal 0.0-1.0 Immature Granulocyte % 0.1 % Normal 0-3.0 Nucleated Red Blood Cell % 0.0 % Normal 0-0 Neutrophils # 4.9 10 Normal 1.5-8.5 Lymph # 1.4 10 Low 1.5-5.0 Haines # 0.4 10 Normal 0.0-0.8 Eos # 0.1 10 Normal 0.0-0.5 Baso # 0.0 10 Normal 0.0-0.2 PT & Aptt 09/30/2020 [facility] nter [address] [place] [address] [phone] Prothrombin Time 13.8 seconds Normal 12.5-14.3 Inr 1.04 Normal 1 Partial Thromboplastin Time 30.6 seconds Normal 24.2-38.5 CBC With Differential 09/30/[address] [address] [phone] White Blood Count 6.2 10 Normal 4.0-10.0 [...] 36.0-66.0 Lymph % 16.4 % Low 24.0-44.0 Haines % 7.0 % Normal 2.0-8.0 Eos % 1.1 % Normal 0.0-3.0 Baso % 0.5 % Normal 0.0-1.0 Immature Granulocyte % 0.5 % Normal 0-3.0 Nucleated Red Blood Cell % 0.0 % Normal 0-0 Neutrophils # 4.6 10 Normal 1.5-8.5 Lymph # 1.0 10 Low 1.5-5.0 Haines # 0.4 10 Normal 0.0-0.8 Eos # 0.1 10 Normal 0.0-0.5 Baso # 0.0 10 Normal 0.0-0.2 Comprehensive Metabolic Profil 09/30/[address] [address] [phone] Glucose, Fasting 98 mg/dL Normal 70-100 Blood [...] 0.6 Low 1.2-2.2 Complete Blood Count 09/22/2020 [facility] Mobile Qa Tester: [place] [address] [phone] WBC 5.9 x10*3/UL 4.1 - 10.9 RBC [...] 2.0 - 7.8 Laboratory test finding 09/22/2020 [facility] Mobile Qa Tester: [place] [address] [phone] Sed Rate 25 mm/hr High 0 - 15 Basic Metabolic Panel 09/22/2020 [facility] Mobile Qa Tester: [place] [address] [phone] Glucose 100 mg/dL High 74 - 99 [...] mL/min >60 5 Laboratory test finding 09/22/2020 [facility] Mobile Qa Tester: [place] [address] [phone] Thyroid Stimulating Hormone 0.19 uIU/mL Low 0.3 6 - 3.74 Complete Blood Count 07/24/2020 [facility] Mobile Qa Tester: Dr [place] [id number] [phone] WBC 8.4 x10*3/UL 4.1 - 10.9 RBC [...] Neut # 6.5 x10*3/UL 2.0 - 7.8 Laboratory test finding 07/24/2020 [facility] Mobile Qa Tester: [place] [address] [phone] Sed Rate 45 mm/hr High 0 - 15 Magnesium 1.8 mg/dL 1.8 - 2.4 Basic Metabolic Panel 07/24/2020 [facility] Mobile Qa Tester: [place] [address] [phone] Glucose 70 mg/dL Low 74 - 99 6 BUN 23 mg/dL High 7 - 18 Creatinine 0.9 mg/dL 0.6 - 1.3 Sodium 144 mEq/L 136 - 145 Potassium 3.8 mEq/L 3.5 - 5.1 Chloride 104 mEq/L 98 - 107 Carbon Dioxide 32 mEq/L 21 - 32 Calcium 10.1 mg/dL 8.5 - 10.1 GFR >= 60 mL/min >60 GFR >= 60 mL/min >60 7 Lipid Profile 07/24/2020 [facility] Mobile Qa Tester: [place] [address] [phone] Cholesterol 132 mg/dL 131 - 200 Triglycerides 72 mg/dL 30 - 150 HDL Cholesterol 54 mg/dL 35 - 60 LDL (Calculated) 64 CALC 50 - 159 Laboratory test finding 07/24/2020 [facility] Mobile Qa Tester: [place] [address] [phone] Thyroid Stimulating Hormone 0.32 uIU/mL Low 0.3 6 - 3.74 Laboratory test finding 07/24/2020 [facility] [address] [place] [address] [phone] Digoxin Level 0.3 NG/ML Low 0.5-2.0 8 1 THERAPUTIC HUMAN INR VALUES INDICATIONS NORMAL [...] Little GFR Left ESRD GFR <15 on DEVELOPMENT PROFESSIONAL 3 100-125 mg/dL PRE-DIABET ES/FASTING >126 mg/dL DIABETES/FASTING 4 NOTE: CALCIUM,TSH VERIFIED 5 CHRONIC KIDNEY DISEASE STAGI NG PER NKF STAGE I & II GFR >= 60 NORMAL TO MILDLY DECREASED STAGE III GFR 30-59 MODERATELY DECREASED STAGE IV GFR 15-29 SEVERELY DECREASED STAGE V GFR <15 VERY LITTLE GFR LEFT ESRD GFR <15 ON DEVELOPMENT PROFESSIONAL 6 100-125 mg/dL PRE-DIABET ES/FASTING >126 mg/dL DIABETES/FASTING 7 CHRONIC KIDNEY DISEASE STAGI NG PER NKF STAGE I & II GFR >= 60 NORMAL TO MILDLY DECREASED STAGE III GFR 30-59 MODERATELY DECREASED STAGE IV GFR 15-29 SEVERELY DECREASED STAGE V GFR <15 VERY LITTLE GFR LEFT ESRD GFR <15 ON DEVELOPMENT PROFESSIONAL 8 note:<nlbl:demographic_chang ed> Procedures Date Code Description Status 01/07/2021 88883 Office/Outpatient Established Lo w MDM 20-29 Min Completed 11/14/2020 62789 Chronic Care MGMT 20 Mins Clinical Staff Time Per Calendar Month Completed 11/14/2020 32893 Chronic Care Management Services Ea Addl 20 Min Completed 10/28/2020 32006 Complex Chronic Care MGMT Servic e Ea Addl 30 Min Completed 10/28/2020 15356 Complex Chronic Care Management SVC 1St 60 Min Completed 09/26/2020 54830 Complex Chronic Care MGMT Servic e Ea Addl 30 Min Completed 09/26/2020 35561 Complex Chronic Care Management SVC 1St 60 Min Completed 09/22/2020 18519 Office/Outpatient Established Mo d MDM 30-39 Min Completed 08/25/2020 41392 Complex Chronic Care MGMT Servic e Ea Addl 30 Min Completed 08/25/2020 80362 Complex Chronic Care Management SVC 1St 60 Min Completed 07/25/2020 15705 Complex Chronic Care MGMT Servic e Ea Addl 30 Min Completed 07/25/2020 58449 Complex Chronic Care Management SVC 1St 60 Min Completed 07/24/2020 05110 Office/Outpatient Established Mo d MDM 30-39 Min Completed 06/19/2020 805729924 Bone Mineral Density Test Comple elmer 06/19/2020 93208135 Mammogram Completed Medical Devices Description No Information Available Encounters Type Date Location Provider Dx Diagnosis Office Visit 01/07/2021 2[facility]p [facility] S81.802A Unspecified open wound, left lower leg, initial encounter Z23 Encounter for immunization Office Visit 09/22/2020 1:30p [facility] M.[facility]. I48.20 Chronic atrial fibrillation, unspecified Z79.01 [facility] (current) use of a nticoagulants R60.9 Edema, [...] hypercholesterolemia, u nspecified Office Visit 07/24/2020 1:30p [facility] 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 09/22/2020 Z79.01 [facility] (current) use of antic oagulants Zehra Sprague M.D. 09/22/2020 R60.9 Edema, unspecified Zehra flores M.D. 09/22/2020 I10 Essential (primary) hypertension Zehra Sprague M.D. 09/22/2020 E05.90 Thyrotoxicosis, unspecified with out thyrotoxic crisis or sto Zehra Sprague M.D. 09/22/2020 I82.502 Chronic embolism and thrombosis of unspecified deep veins of left lower extremity Zehra Sprague M.D. 09/22/2020 F17.210 Nicotine dependence, cigarettes, uncomplicated Zehar Sprague M.D. 09/22/2020 F32.89 Other specified depressive [...] Sprague M.D. 08/25/2020 E78.00 Pure hypercholesterolemia, unspe cisue Sprague M.D. 07/25/2020 I48.20 Chronic atrial fibrillation, uns pecified Zehra Sprague M.D. 07/25/2020 F17.210 Nicotine dependence, cigarettes, uncomplicated Zehra Sprague M.D. 07/25/2020 K21.9 Gastro-esophageal reflux disease without esophagitis Zehra Sprague M.D. 07/25/2020 E78.00 Pure hypercholesterolemia, unspe cisue Sprague M.D. 07/24/2020 I48.20 Chronic atrial fibrillation, uns pecsteff Sprague M.D. 07/24/2020 I10 Essential (primary) hypertension Zehra Sprague M.D. 07/24/2020 E05.90 Thyrotoxicosis, unspecified with out thyrotoxic crisis or sto Zehra Sprague M.D. 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 07/24/2020 Z79.01 [facility] (current) use of antic oagulants Zehra Sprague [...] 3:15 pm - [facility] 01/07/2021 - WENDY Mancilla JR* S81.802A Unspecified open wound, left lower leg, initial encounter * Z23 Encounter for immunization * All * New Medication:* Cephalexin 500 mg - take one tablet by mouth 3 times daily x 7 days * Comments:* Total time spent was 43 minutes. Most of this time was spent counseling the patient and dressing the wound. She verbalized understanding and agreement, She was accompanied by a friend who also verbalized understanding and agreement.Flu shot was given. Functional Status Description No Information Available Mental Status Description No Information Available Referrals Refer to Dr Reason for Referral Status Appt Date Arvin Jhaveri MD STAT CONSULT FOR OPEN WOUND LT LEG PLEASE LET OFFICE KNOW WHEN APPT IS MADE [facility] [address] [place] [address] [phone] Dejuan Wilks MD CONSULT FOR PVD WITH OPEN WOUND LT LEG Patient Declined 01/21/2021 [facility] [address] [facility] ,[address] [place] [address] [phone]
--- OUTSIDE RECORDS SUMMARY | 2021-01-26 14:45 | CCD | Continuity of Care Document ---
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 AUTM [phone] Problems Active Problems Provider Date Chronic atrial fibrillation Protime Onset: 02/09 Essential hypertension Glenna Guajardo FNP Onset: 02/09/2017 Deep venous thrombosis of lower extremity Glenna Guajardo FN P Onset: 02/09/2017 Pure hypercholesterolemia Glenna Guajardo FNP Onset: 017 Anxiety state lGenna Guajardo FNP Onset: 02/09/2017 Chronic pulmonary embolism [...] Consumes 3 glasses of wine per w [facility] Tobacco Use Start: Unknown Patient is a [...] Lauri grey JR PA 01/07/2021 Excedrin Migraine [phone] Tab lets 1 as needed h/a as [...] la Tablets 1 every day PO Vit [id number] LP=423 Glenna Guajardo FNP 01/18/2017 Metoprolol Tartrate 25mg [...] CPT Code Status Date Vaccine Lot # [id number] Given 01/07/2021 Influenza Vaccin e Quadrivalent Preser/Antibiotic Free Im Use [id number] 34875 Given 01/17/2020 Influenza Vaccin e Quadrivalent Preser/Antibiotic Free Im Use [id number] 05109 Given 05/29/2019 Shingrix Zoster Vaccine (HZV), Recombinant, Subunit, Adjuvanted 20019 Given 01/18/2019 Influenza Vaccin e Quadrivalent Preser/Antibiotic Free Im Use 801333 70871 Given 01/18/2018 Influenza Virus Vaccine, Quadrivalent (Cciiv4), Derived From 0 Given 04/22/2017 Pneumovax 23 [id number] 67794 Given 01/18/2017 Influenza Vaccin e Quadrivalent Preser/Antibiotic Free Im Use [id number] Vital Signs Date Vital Result Comment 01/20/2021 3:12pm BP Systolic 122 mmHg BP Diastolic 76 mmHg Heart Rate 86 /min Height 66 inches 5'6" Weight 223.00 lb BMI (Body Mass Index) 36.0 kg/m2 01/07/2021 2:17pm BP Systolic 124 mmHg BP Diastolic 68 mmHg Heart Rate 86 /min Height 66 inches 5'6" Weight 217.00 lb BMI (Body Mass Index) 35.0 kg/m2 Results Test Acquired Date Facility Test Result H/L Range Note Laboratory test finding 01/07/2021 [facility] [address] [place] [address] [phone] Wound Culture <pending> CBC With Differential 10/15/2020 [facility] [address] [place] [address] [phone] White Blood Count 6.8 10 Normal 4.0-10.0 [...] 36.0-66.0 Lymph % 19.9 % Low 24.0-44.0 [place] % 6.0 % Normal 2.0-8.0 Eos % 1.5 % Normal 0.0-3.0 Baso % 0.3 % Normal 0.0-1.0 Immature Granulocyte % 0.1 % Normal 0-3.0 Nucleated Red Blood Cell % 0.0 % Normal 0-0 Neutrophils # 4.9 10 Normal 1.5-8.5 Lymph # 1.4 10 Low 1.5-5.0 [place] # 0.4 10 Normal 0.0-0.8 Eos # 0.1 10 Normal 0.0-0.5 Baso # 0.0 10 Normal 0.0-0.2 PT & Aptt 09/30/[address] [facility]ter [address] [place] [address] [phone] Prothrombin Time 13.8 seconds Normal 12.5-14.3 Inr 1.04 Normal 1 Partial Thromboplastin Time 30.6 seconds Normal 24.2-38.5 CBC With Differential 09/30/[address] [address] [phone] White Blood Count 6.2 10 Normal 4.0-10.0 [...] 36.0-66.0 Lymph % 16.4 % Low 24.0-44.0 [place] % 7.0 % Normal 2.0-8.0 Eos % 1.1 % Normal 0.0-3.0 Baso % 0.5 % Normal 0.0-1.0 Immature Granulocyte % 0.5 % Normal 0-3.0 Nucleated Red Blood Cell % 0.0 % Normal 0-0 Neutrophils # 4.6 10 Normal 1.5-8.5 Lymph # 1.0 10 Low 1.5-5.0 [place] # 0.4 10 Normal 0.0-0.8 Eos # 0.1 10 Normal 0.0-0.5 Baso # 0.0 10 Normal 0.0-0.2 Comprehensive Metabolic Profil 09/30/[address] [address] [phone] Glucose, Fasting 98 mg/dL Normal 70-100 Blood [...] 0.6 Low 1.2-2.2 Complete Blood Count 09/22/2020 [facility] Moving Picture Producer: [place] [address] [phone] WBC 5.9 x10*3/UL 4.1 - 10.9 RBC [...] 2.0 - 7.8 Laboratory test finding 09/22/2020 [facility] Moving Picture Producer: [place] [address] [phone] Sed Rate 25 mm/hr High 0 - 15 Basic Metabolic Panel 09/22/2020 [facility] Moving Picture Producer: [address] [place] [address] [phone] Glucose 100 mg/dL High 74 - 99 [...] mL/min >60 5 Laboratory test finding 09/22/2020 [facility] Moving Picture Producer: [place] [address] [phone] Thyroid Stimulating Hormone 0.19 uIU/mL Low 0.3 6 - 3.74 Complete Blood Count 07/24/2020 [facility] Moving Picture Producer: [place] [address] [phone] WBC 8.4 x10*3/UL 4.1 - 10.9 RBC [...] 2.0 - 7.8 Laboratory test finding 07/24/2020 [facility] Moving Picture Producer: [place] [address] [phone] Sed Rate 45 mm/hr High 0 - 15 Magnesium 1.8 mg/dL 1.8 - 2.4 Basic Metabolic Panel 07/24/2020 [facility] Moving Picture Producer: [place] [address] [phone] Glucose 70 mg/dL Low 74 - 99 [...] 60 mL/min >60 7 Lipid Profile 07/24/2020 [facility] Moving Picture Producer: [place] [address] [phone] Cholesterol 132 mg/dL 131 - 200 Triglycerides 72 mg/dL 30 - 150 HDL Cholesterol 54 mg/dL 35 - 60 LDL (Calculated) 64 CALC 50 - 159 Laboratory test finding 07/24/2020 [facility] Moving Picture Producer: [place] [address] [phone] Thyroid Stimulating Hormone 0.32 uIU/mL Low 0.3 6 - 3.74 Laboratory test finding 07/24/2020 [facility] [address] [place] [address] [phone] Digoxin Level 0.3 NG/ML Low 0.5-2.0 8 [...] Little GFR Left ESRD GFR <15 on BUILDING SUPERVISOR 3 100-125 mg/dL PRE-DIABET ES/FASTING >126 mg/dL DIABETES/FASTING 4 NOTE: CALCIUM,TSH VERIFIED 5 CHRONIC KIDNEY DISEASE STAGI NG PER NKF STAGE I & II GFR >= 60 NORMAL TO MILDLY DECREASED STAGE III GFR 30-59 MODERATELY DECREASED STAGE IV GFR 15-29 SEVERELY DECREASED STAGE V GFR <15 VERY LITTLE GFR LEFT ESRD GFR <15 ON BUILDING SUPERVISOR 6 100-125 mg/dL PRE-DIABET ES/FASTING >126 mg/dL DIABETES/FASTING 7 CHRONIC KIDNEY DISEASE STAGI NG PER NKF STAGE I & II GFR >= 60 NORMAL TO MILDLY DECREASED STAGE III GFR 30-59 MODERATELY DECREASED STAGE IV GFR 15-29 SEVERELY DECREASED STAGE V GFR <15 VERY LITTLE GFR LEFT ESRD GFR <15 ON BUILDING SUPERVISOR 8 note:<nlbl:[email or web address]_[email or web address] ed> Procedures Date Code Description Status 01/07/2021 38728 Office/Outpatient Established Lo w MDM 20-29 Min Completed 11/14/2020 64309 Chronic Care MGMT 20 Mins Clinical Staff Time Per Calendar Month Completed 11/14/2020 36612 Chronic Care Management Services Ea Addl 20 Min Completed 10/28/2020 16358 Complex Chronic Care MGMT Servic e Ea Addl 30 Min Completed 10/28/2020 03757 Complex Chronic Care Management SVC 1St 60 Min Completed 09/26/2020 71930 Complex Chronic Care MGMT Servic e Ea Addl 30 Min Completed 09/26/2020 45881 Complex Chronic Care Management SVC 1St 60 Min Completed 09/22/2020 48811 Office/Outpatient Established Mo d MDM 30-39 Min Completed 08/25/2020 17063 Complex Chronic Care MGMT Servic e Ea Addl 30 Min Completed 08/25/2020 88018 Complex Chronic Care Management SVC 1St 60 Min Completed 07/25/2020 03611 Complex Chronic Care MGMT Servic e Ea Addl 30 Min Completed 07/25/2020 32928 Complex Chronic Care Management SVC 1St 60 Min Completed 07/24/2020 45894 Office/Outpatient Established Mo d MDM 30-39 Min Completed 06/19/2020 407021678 Bone Mineral Density Test Comple elmer 06/19/2020 73845399 Mammogram Completed Medical Devices Description No Information Available Encounters Type Date Location Provider Dx Diagnosis Office Visit 01/07/2021 2:20p [facility], [place] S81.802A Unspecified open wound, left lower leg, initial encounter Z23 Encounter for immunization Office Visit 09/22/2020 1:30p [facility] Neal M.D. 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 I48.20 Chronic atrial fibrillation, unspecified I10 Essential (primary) hyperten juanita E05.90 Thyrotoxicosis, unsp without thyrotoxic crisis or storm I82.502 Chronic embolism and thombos unsp deep veins of l low extrem Z79.01 USP (current) use of a nticoagulants F17.210 Nicotine [...] M.D. 09/22/2020 I48.20 Chronic atrial fibrillation, uns pecsteff Sprague M.D. 09/22/2020 Z79.01 manager intermediate (current) use of antic oagulants Zehra Sprague M.D. 09/22/2020 R60.9 Edema, unspecified Zehra floers M.D. 09/22/2020 I10 Essential (primary) hypertension Zehra [...] 09/22/2020 E78.00 Pure hypercholesterolemia, unspe cified Zehra Spargue M.D. 08/25/2020 I10 Essential (primary) hypertension Zehra [...] lower extremity Zehra Sprague M.D. 07/24/2020 Z79.01 USP (current) use of antic oagulants Zehra Sprague [...] 3:15 pm - Zehra Sprague M.D. at [facility] Functional Status Description No Information Available Mental Status Description No Information Available Referrals Refer to Dr Reason for Referral Status Appt Date Arvin Jhaveri MD STAT CONSULT FOR OPEN WOUND LT LEG PLEASE LET OFFICE KNOW WHEN APPT IS MADE Created [facility] [address] [facility] [place] [address] [phone] Dejuan Wilks MD CONSULT FOR PVD WITH OPEN WOUND LT LEG Patient Declined 01/21/2021 [facility] [address] [facility] ,[address] [facility] [address] [phone]
--- OUTSIDE RECORDS SUMMARY | 2021-01-26 14:45 | CCD | Continuity of Care Document ---
Author Author Glenna KESSLER PA Organization Unknown Address [address] [facility] [address] [place] [address] Phone [phone] Care Team Providers Care Title I Paraprofessional Name Role Phone Darci Brush MD AUTM [phone] [facility] AUTM [phone] Douglas Ramírez MD AUTM Unavailable [facility] Hematology/Oncology AUTM [phone] Chinyere Carpio HUMAN SERVICES INSTRUCTOR AUTM [phone] Problems Active Problems Provider Date Chronic atrial [...] Consumes 3 glasses of wine per w [place] Tobacco Use Start: Unknown Patient is a [...] Lauri grey JR PA 01/07/2021 Excedrin Migraine [phone] Tab lets 1 as needed h/a as [...] la Tablets 1 every day PO Vit [id number] RD=241 Glenna Guajardo FNP 01/18/2017 Metoprolol Tartrate 25mg [...] CPT Code Status Date Vaccine Lot # [id number] Given 01/07/2021 Influenza Vaccin e Quadrivalent Preser/Antibiotic Free Im Use [id number] 65541 Given 01/17/2020 Influenza Vaccin e Quadrivalent Preser/Antibiotic Free Im Use 500151 79223 Given 05/29/2019 Shingrix Zoster Vaccine (HZV), Recombinant, Subunit, Adjuvanted 86248 Given 01/18/2019 Influenza Vaccin e Quadrivalent Preser/Antibiotic Free Im Use 935994 44552 Given 01/18/2018 Influenza Virus Vaccine, Quadrivalent (Cciiv4), Derived From 0 Given 04/22/2017 Pneumovax 23 [id number] 86874 Given 01/18/2017 Influenza Vaccin e Quadrivalent Preser/Antibiotic Free Im Use 125808 Vital Signs Date Vital Result Comment 01/20/2021 [...] Date Facility Test Result H/L Range Note CBC With Differential 10/15/2020 [facility] [address] [place] [address] [phone] White Blood Count 6.8 10 Normal 4.0-10.0 [...] 36.0-66.0 Lymph % 19.9 % Low 24.0-44.0 [place] % 6.0 % Normal 2.0-8.0 Eos % 1.5 % Normal 0.0-3.0 Baso % 0.3 % Normal 0.0-1.0 Immature Granulocyte % 0.1 % Normal 0-3.0 Nucleated Red Blood Cell % 0.0 % Normal 0-0 Neutrophils # 4.9 10 Normal 1.5-8.5 Lymph # 1.4 10 Low 1.5-5.0 [place] # 0.4 10 Normal 0.0-0.8 Eos # 0.1 10 Normal 0.0-0.5 Baso # 0.0 10 Normal 0.0-0.2 PT & Aptt 09/30/2020 [facility] nter [address] [place], [place] [address] [phone] Prothrombin Time 13.8 seconds Normal 12.5-14.3 Inr 1.04 Normal 1 Partial Thromboplastin Time 30.6 seconds Normal 24.2-38.5 CBC With Differential 09/30/[address] [id number] [phone] White Blood Count 6.2 10 Normal 4.0-10.0 [...] 36.0-66.0 Lymph % 16.4 % Low 24.0-44.0 [place] % 7.0 % Normal 2.0-8.0 Eos % 1.1 % Normal 0.0-3.0 Baso % 0.5 % Normal 0.0-1.0 Immature Granulocyte % 0.5 % Normal 0-3.0 Nucleated Red Blood Cell % 0.0 % Normal 0-0 Neutrophils # 4.6 10 Normal 1.5-8.5 Lymph # 1.0 10 Low 1.5-5.0 [place] # 0.4 10 Normal 0.0-0.8 Eos # 0.1 10 Normal 0.0-0.5 Baso # 0.0 10 Normal 0.0-0.2 Comprehensive Metabolic Profil 09/30/[address] 7715498 [phone] Glucose, Fasting 98 mg/dL Normal 70-100 Blood [...] 0.6 Low 1.2-2.2 Complete Blood Count 09/22/2020 [facility] Human Resources Admin: [place] [address] [phone] WBC 5.9 x10*3/UL 4.1 - 10.9 RBC [...] 2.0 - 7.8 Laboratory test finding 09/22/2020 [facility] Human Resources Admin: [place] [address] [phone] Sed Rate 25 mm/hr High 0 - 15 Basic Metabolic Panel 09/22/2020 [facility] Human Resources Admin: [place] [address] [phone] Glucose 100 mg/dL High 74 - 99 [...] mL/min >60 5 Laboratory test finding 09/22/2020 [facility] Human Resources Admin: Dr Terrance Matson [place] [id number] [phone] Thyroid Stimulating Hormone 0.19 uIU/mL Low 0.3 6 - 3.74 1 THERAPUTIC HUMAN INR VALUES INDICATIONS NORMAL [...] Little GFR Left ESRD GFR <15 on ENVIRONMENTAL SERVICES SUPERVISOR 3 100-125 mg/dL PRE-DIABET ES/FASTING >126 mg/dL DIABETES/FASTING 4 NOTE: CALCIUM,TSH VERIFIED 5 CHRONIC KIDNEY DISEASE STAGI NG PER NKF STAGE I & II GFR >= 60 NORMAL TO MILDLY DECREASED STAGE III GFR 30-59 MODERATELY DECREASED STAGE IV GFR 15-29 SEVERELY DECREASED STAGE V GFR <15 VERY LITTLE GFR LEFT ESRD GFR <15 ON ENVIRONMENTAL SERVICES SUPERVISOR Procedures Date Code Description Status 01/07/2021 01400 Office/Outpatient Established Lo w MDM 20-29 Min Completed 11/14/2020 22929 Chronic Care MGMT 20 Mins Clinical Staff Time Per Calendar Month Completed 11/14/2020 19520 Chronic Care Management Services Ea Addl 20 Min Completed 10/28/2020 56651 Complex Chronic Care MGMT Servic e Ea Addl 30 Min Completed 10/28/2020 29836 Complex Chronic Care Management SVC 1St 60 Min Completed 09/26/2020 08973 Complex Chronic Care MGMT Servic e Ea Addl 30 Min Completed 09/26/2020 98684 Complex Chronic Care Management SVC 1St 60 Min Completed 09/22/2020 19311 Office/Outpatient Established Mo d MDM 30-39 Min Completed 08/25/2020 07462 Complex Chronic Care MGMT Servic e Ea Addl 30 Min Completed 08/25/2020 36477 Complex Chronic Care Management SVC 1St 60 Min Completed 07/25/2020 38100 Complex Chronic Care MGMT Servic e Ea Addl 30 Min Completed 07/25/2020 76837 Complex Chronic Care Management SVC 1St 60 Min Completed 06/19/2020 [id number] Bone Mineral Density Test Comple [place] 06/19/2020 03397525 Mammogram Completed Medical Devices Description No Information Available Encounters Type Date Location Provider Dx Diagnosis Office Visit 01/07/2021 2:20p [facility] S81.802A Unspecified open wound, left lower leg, initial encounter Z23 Encounter for immunization Office Visit 09/22/2020 1:30p [facility] M.[facility] I48.20 Chronic atrial fibrillation, unspecified Z79.01 [facility] (current) use of a nticoagulants R60.9 Edema, [...] unspecified site E78.00 Pure hypercholesterolemia, u nspecified Assessments Date [...] fibrillation, uns pecsteff Sprague M.D. 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 07/25/2020 E78.00 Pure hypercholesterolemia, unspe cified Zehra Sprague M.D. Plan of Treatment Future Appointment(s):* 03/11/2021 3:15 pm - Zehra Sprague M.D. at [facility] Functional Status Description No Information Available Mental Status Description No Information Available Referrals Refer to Dr Reason for Referral Status Appt Date Arvin Jhaveri MD STAT CONSULT FOR OPEN WOUND LT LEG PLEASE LET OFFICE KNOW WHEN APPT IS MADE Created [facility] [address] [place] [address] [phone] Dejuan Wilks MD CONSULT FOR PVD WITH OPEN WOUND LT LEG Patient Declined 01/21/2021 [facility] [address] [facility] [address] [phone]
--- OUTSIDE RECORDS SUMMARY | 2021-01-26 14:45 | CCD | Continuity of Care Document ---
Author Author Glenna KESSLER PA Organization Unknown Address [address] [facility] [address] [place] [address] Phone [phone] Care Team Providers Care Edger Feeder Name Role Phone Darci Brush MD AUTM [phone] [facility] AUTM [phone] Douglas Ramírez MD AUTM Unavailable [facility] Hematology/Oncology AUTM [phone] ORDERLY AUTM [phone] Problems Active Problems Provider Date Chronic atrial [...] Guajardo FNP Onset: 02/09/2017 Gastroesophageal reflux disease Glenan Guajardo FNP Onset: 1 04/11/2016 Scoliosis deformity of spine Glenna Guajardo FNP Onset: 11/2016 Chronic tension-type headache Glenna Guajardo FNP Onset: 11/2016 Varicose veins of lower extremity Glenna Guajardo FNP Onset: 02/09/2017 Tobacco user Glenna Guajardo FNP Onset: 02/09/2017 Hypercalcemia Glenna Guajardo FNP Onset: 02/09/2017 Social History Type Date Description Comments Sex Unknown ETOH Use Consumes 3 glasses of wine per w [id number] Tobacco Use Start: Unknown Patient is a [...] Lauri grey JR PA 01/07/2021 Excedrin Migraine [phone] Tab lets 1 as needed h/a as [...] la Tablets 1 every day PO Vit [id number] RA=502 Glenna Guajardo FNP 01/18/2017 Metoprolol Tartrate 25mg [...] CPT Code Status Date Vaccine Lot # [id number] Given 01/07/2021 Influenza Vaccin e Quadrivalent Preser/Antibiotic Free Im Use [id number] 94703 Given 01/17/2020 Influenza Vaccin e Quadrivalent Preser/Antibiotic Free Im Use 081101 66120 Given 05/29/2019 Shingrix Zoster Vaccine (HZV), Recombinant, Subunit, Adjuvanted 35345 Given 01/18/2019 Influenza Vaccin e Quadrivalent Preser/Antibiotic Free Im Use [id number] 18385 Given 01/18/2018 Influenza Virus Vaccine, Quadrivalent (Cciiv4), Derived From 7 Given 04/22/2017 Pneumovax 23 [id number] 96262 Given 01/18/2017 Influenza Vaccin e Quadrivalent Preser/Antibiotic Free Im Use [id number] Vital Signs Date Vital Result Comment 01/07/2021 [...] H/L Range Note Laboratory test finding 01/07/2021 [facility] [address] [place] [address] [phone] Wound Culture <pending> CBC With Differential 10/15/2020 [facility] [address] [place] [address] [phone] White Blood Count 6.8 10 Normal 4.0-10.0 [...] 36.0-66.0 Lymph % 19.9 % Low 24.0-44.0 [place] % 6.0 % Normal 2.0-8.0 Eos % 1.5 % Normal 0.0-3.0 Baso % 0.3 % Normal 0.0-1.0 Immature Granulocyte % 0.1 % Normal 0-3.0 Nucleated Red Blood Cell % 0.0 % Normal 0-0 Neutrophils # 4.9 10 Normal 1.5-8.5 Lymph # 1.4 10 Low 1.5-5.0 [place] # 0.4 10 Normal 0.0-0.8 Eos # 0.1 10 Normal 0.0-0.5 Baso # 0.0 10 Normal 0.0-0.2 PT & Aptt 09/30/2020 [facility] nter [address] [place] [address] [phone] Prothrombin Time 13.8 seconds Normal 12.5-14.3 Inr 1.04 Normal 1 Partial Thromboplastin Time 30.6 seconds Normal 24.2-38.5 CBC With Differential 09/30/[address] [address] [phone] White Blood Count 6.2 10 Normal 4.0-10.0 [...] 36.0-66.0 Lymph % 16.4 % Low 24.0-44.0 [place] % 7.0 % Normal 2.0-8.0 Eos % 1.1 % Normal 0.0-3.0 Baso % 0.5 % Normal 0.0-1.0 Immature Granulocyte % 0.5 % Normal 0-3.0 Nucleated Red Blood Cell % 0.0 % Normal 0-0 Neutrophils # 4.6 10 Normal 1.5-8.5 Lymph # 1.0 10 Low 1.5-5.0 [place] # 0.4 10 Normal 0.0-0.8 Eos # 0.1 10 Normal 0.0-0.5 Baso # 0.0 10 Normal 0.0-0.2 Comprehensive Metabolic Profil 09/30/[address] [address] [phone] Glucose, Fasting 98 mg/dL Normal 70-100 Blood [...] 0.6 Low 1.2-2.2 Complete Blood Count 09/22/2020 [facility] Sql Ssrs Developer: Dr [place] [address] [phone] WBC 5.9 x10*3/UL 4.1 - 10.9 RBC [...] 2.0 - 7.8 Laboratory test finding 09/22/2020 [facility] Sql Ssrs Developer: Dr [place] [address] [phone] Sed Rate 25 mm/hr High 0 - 15 Basic Metabolic Panel 09/22/2020 [facility] Sql Ssrs Developer: Dr [place] [address] [phone] Glucose 100 mg/dL High 74 - 99 [...] mL/min >60 5 Laboratory test finding 09/22/2020 [facility] ruth Sql Ssrs Developer: [place] [address] [phone] Thyroid Stimulating Hormone 0.19 uIU/mL Low 0.3 6 - 3.74 Lipid Profile 07/24/2020 [facility] Sql Ssrs Developer: [place] [address] [phone] Cholesterol 132 mg/dL 131 - 200 Triglycerides 72 mg/dL 30 - 150 HDL Cholesterol 54 mg/dL 35 - 60 LDL (Calculated) 64 CALC 50 - 159 Laboratory test finding 07/24/[address] [id number] [phone] Digoxin Level 0.3 NG/ML Low 0.5-2.0 6 Laboratory test finding 07/24/2020 [facility] k[facility]in ruth Sql Ssrs Developer: Dr Terrance Matson [place], [place] [address] [phone] Thyroid Stimulating Hormone 0.32 uIU/mL Low 0.3 6 - 3.74 Basic Metabolic Panel 07/24/2020 [facility] Sql Ssrs Developer: Dr Terrance Matson [place], [place] [address]6478 [phone] Glucose 70 mg/dL Low 74 - 99 [...] mL/min >60 8 Laboratory test finding 07/24/2020 [facility] ruth Sql Ssrs Developer: [place] [address] [phone] Sed Rate 45 mm/hr High 0 - 15 Magnesium 1.8 mg/dL 1.8 - 2.4 Complete Blood Count 07/24/2020 [facility] Sql Ssrs Developer: [place] [address] [phone] WBC 8.4 x10*3/UL 4.1 - 10.9 RBC [...] x10*3/UL 2.0 - 7.8 Ua Routine 07/16/2020 [facility] nter [address] [place] [address] [phone] Appearance, Urine CLEAR Normal Clear Color, Urine PRAMOD Normal Yellow PH,Urine 5.0 units Normal 5.0-9.0 Specific [place] Urine Auto 1.028 Normal 1.002-1.035 Protein, Urine [...] /LPF Normal 0-1 CBC With Differential 07/16/[address] [address] [phone] White Blood Count 7.6 10 Normal 4.0-10.0 [...] 36.0-66.0 Lymph % 18.1 % Low 24.0-44.0 [place] % 6.8 % Normal 2.0-8.0 Eos % 1.3 % Normal 0.0-3.0 Baso % 0.3 % Normal 0.0-1.0 Immature Granulocyte % 0.4 % Normal 0-3.0 Nucleated Red Blood Cell % 0.0 % Normal 0-0 Neutrophils # 5.6 10 Normal 1.5-8.5 Lymph # 1.4 10 Low 1.5-5.0 [place] # 0.5 10 Normal 0.0-0.8 Eos # 0.1 10 Normal 0.0-0.5 Baso # 0.0 10 Normal 0.0-0.2 Laboratory test finding 07/16/2020 [facility] [address] [place] [address] [phone] Erythrocyte Sedimentation Rate 68 mm/hr High 0 -30 Comprehensive Metabolic Profil 07/16/2020 [place] [address] [place] [address] [phone] Glucose, Fasting 97 mg/dL Normal 70-100 Blood [...] Low 1.2-2.2 Total Iron Binding Capacit 07/16/2020 [place] [id number] [phone] Iron (Fe) 131 g/dL Normal 50-170 Total Iron Binding Capacity 305 g/dL Normal 250-450 Percent Saturation 43.0 % Normal 13.2-45.0 Immunoglobulin G,A,M 07/16/[address] [address] [phone] Immunoglobulin A 2640.0 mg/dL High 70-400 Immunoglobulin G 510 mg/dL Low 681-1648 Immunoglobulin M < 5.3 mg/dL Low 40-230 Immunotyping (Immunofixation) Serum (If 07/16/[address] [address] [phone] Immunotyping Serum Iga ABNORMAL High Normal Immunotyping Serum Lambda ABNORMAL High Normal It Serum Interpretation SEE COMMENT Normal 10 Its Pathologist Review REV'D BY O ADJAP <SEE NOTE> Normal 11 Laboratory test finding 07/16/[address] [address] [phone] Ferritin 128 NG/ML Normal 8-252 12 Beta 2 Microglobulin 3.7 mg/L High 0.6-2.4 13 Free [place] & Lambda LT Chains 07/16/2020 [place] [address] [place] [id number] [phone] Free [place] Light Chains Serum 6.4 mg/L Normal 3. 3-19.4 Free Lambda Light Chains Serum 517.2 mg/L High 5.7-26.3 [place]/Lambda Ratio Serum 0.01 Low 0.26-1.65 1 THERAPUTIC [...] Little GFR Left ESRD GFR <15 on FABRICATOR [employer]SEM[employer]ODUCTS 3 100-125 mg/dL PRE-DIABET ES/FASTING >126 mg/dL DIABETES/FASTING 4 NOTE: CALCIUM,TSH VERIFIED 5 CHRONIC KIDNEY DISEASE STAGI NG PER NKF STAGE I & II GFR >= 60 NORMAL TO MILDLY DECREASED STAGE III GFR 30-59 MODERATELY DECREASED STAGE IV GFR 15-29 SEVERELY DECREASED STAGE V GFR <15 VERY LITTLE GFR LEFT ESRD GFR <15 ON FABRICATOR [employer] 6 note:<nlbl:demographic_chang ed> 7 100-125 mg/dL PRE-DIABET ES/FASTING >126 mg/dL DIABETES/FASTING 8 CHRONIC KIDNEY DISEASE STAGI NG PER NKF STAGE I & II GFR >= 60 NORMAL TO MILDLY DECREASED STAGE III GFR 30-59 MODERATELY DECREASED STAGE IV GFR 15-29 SEVERELY DECREASED STAGE V GFR <15 VERY LITTLE GFR LEFT ESRD GFR <15 ON FABRICATOR [employer] 9 Units are mL/min/1.73 m2 Chronic Kidney Disease Staging per NKF: Stage I & II GFR >=60 Normal to Mildly Decreased Stage III GFR 30-59 Moderately Decreased Stage IV GFR 15-29 Severely Decreased Stage V GFR <15 Very Little GFR Left ESRD GFR <15 on FAB[employer]ICATOR [employer] 10 MONOCLONAL IGA,LAMBDA 11 REV'D BY Delbert WERNER 12 note:<nlbl:demographic_chang ed> 13 Siemens Immulite 2000 Immuno chemiluminometric assay (ICMA) . Values obtained with different assay methods or kits cannot be used interchangeably. Results cannot be interpreted as absolute evidence of the presence or absence of malignant disease. Performed at: - [facility] [address] [id number] Sql Ssrs Developer: Nataliya Owen MD, Phone: [phone] Performed at: - [facility] [address] [id number] Sql Ssrs Developer: Aaliyah Posadas MD, Phone: [phone] Procedures Date Code Description Status 11/14/2020 38605 Chronic Care MGMT 20 Mins Clinical Staff Time Per Calendar Month Completed 11/14/2020 38788 Chronic Care Management Services Ea Addl 20 Min Completed 10/28/2020 25078 Complex Chronic Care MGMT Servic e Ea Addl 30 Min Completed 10/28/2020 48594 Complex Chronic Care Management SVC 1St 60 Min Completed 09/26/2020 34983 Complex Chronic Care MGMT Servic e Ea Addl 30 Min Completed 09/26/2020 84786 Complex Chronic Care Management SVC 1St 60 Min Completed 09/22/2020 99056 Office/Outpatient Established Mo d MDM 30-39 Min Completed 08/25/2020 92507 Complex Chronic Care MGMT Servic e Ea Addl 30 Min Completed 08/25/2020 74263 Complex Chronic Care Management SVC 1St 60 Min Completed 07/25/2020 89107 Complex Chronic Care MGMT Servic e Ea Addl 30 Min Completed 07/25/2020 17450 Complex Chronic Care Management SVC 1St 60 Min Completed 07/24/2020 45223 Office/Outpatient Established Mo d MDM 30-39 Min Completed 06/19/2020 [id number] Bone Mineral Density Test Comple elmer 06/19/2020 [id number] Mammogram Completed Medical Devices Description No Information Available Encounters Type Date Location Provider Dx Diagnosis Office Visit 09/22/2020 1:30p [facility] PDelbert Sprague M.D. I48.20 Chronic atrial fibrillation, unspecified Z79.01 shelter (current) use of a nticoagulants R60.9 Edema, [...] hypercholesterolemia, u nspecified Office Visit 07/24/2020 1:30p [facility] Charan Sprague M.D. 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 09/22/2020 Z79.01 shelter (current) use of antic oagulants Zehra Sprague [...] lower extremity Zehra Sprague M.D. 07/24/2020 Z79.01 shelter (current) use of antic oagulants Zehra Sprague [...] 3:15 pm - Ze[facility] 01/07/2021 - WENDY Mancilla JR* S81.802A Unspecified open wound, left lower leg, initial encounter * All * New Medication:* Cephalexin 500 mg - take one tablet by mouth 3 times daily x 7 days Functional Status Description No Information Available Mental Status Description No Information Available Referrals Description No Information Available
--- OUTSIDE RECORDS SUMMARY | 2021-01-26 14:45 | CCD | Continuity of Care Document ---
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 Name Role Phone Darci Brush MD AUTM [phone] [facility] AUTM [phone] Douglas Ramírez MD AUTM Unavailable [facility] Hematology/Oncology AUTM [phone] Chinyere Carpio INSURANCE LOSS ADJUSTER AUTM [phone] Problems Active Problems Provider Date Chronic atrial [...] Consumes 3 glasses of wine per w hughes Tobacco Use Start: Unknown Patient is a [...] Lauri grey JR PA 01/07/2021 Excedrin Migraine [phone] Tab lets 1 as needed h/a as [...] la Tablets 1 every day PO Vit E=6623Up VR=480 Glenna Guajardo FNP 01/18/2017 Metoprolol Tartrate 25mg [...] CPT Code Status Date Vaccine Lot # 25854 Given 01/07/2021 Influenza Vaccin e Quadrivalent Preser/Antibiotic Free Im Use 272155 86237 Given 01/17/2020 Influenza Vaccin e Quadrivalent Preser/Antibiotic Free Im Use 836750 96314 Given 05/29/2019 Shingrix Zoster Vaccine (HZV), Recombinant, Subunit, Adjuvanted 15613 Given 01/18/2019 Influenza Vaccin e Quadrivalent Preser/Antibiotic Free Im Use 640884 87311 Given 01/18/2018 Influenza Virus Vaccine, Quadrivalent (Cciiv4), Derived From 0 Given 04/22/2017 Pneumovax 23 [id number] 73558 Given 01/18/2017 Influenza Vaccin e Quadrivalent Preser/Antibiotic Free Im Use 007737 Vital Signs Date Vital Result Comment 01/07/2021 [...] H/L Range Note Laboratory test finding 01/07/2021 [facility] [address] [place] [address] [phone] Wound Culture <pending> CBC With Differential 10/15/2020 [facility] [address] [place] [address] [phone] White Blood Count 6.8 10 Normal 4.0-10.0 [...] 36.0-66.0 Lymph % 19.9 % Low 24.0-44.0 [place] % 6.0 % Normal 2.0-8.0 Eos % 1.5 % Normal 0.0-3.0 Baso % 0.3 % Normal 0.0-1.0 Immature Granulocyte % 0.1 % Normal 0-3.0 Nucleated Red Blood Cell % 0.0 % Normal 0-0 Neutrophils # 4.9 10 Normal 1.5-8.5 Lymph # 1.4 10 Low 1.5-5.0 [place] # 0.4 10 Normal 0.0-0.8 Eos # 0.1 10 Normal 0.0-0.5 Baso # 0.0 10 Normal 0.0-0.2 PT & Aptt 09/30/2020 [facility] nter [address] [place] [address] [phone] Prothrombin Time 13.8 seconds Normal 12.5-14.3 Inr 1.04 Normal 1 Partial Thromboplastin Time 30.6 seconds Normal 24.2-38.5 CBC With Differential 09/30/[address] [address] [phone] White Blood Count 6.2 10 Normal 4.0-10.0 [...] 36.0-66.0 Lymph % 16.4 % Low 24.0-44.0 [place] % 7.0 % Normal 2.0-8.0 Eos % 1.1 % Normal 0.0-3.0 Baso % 0.5 % Normal 0.0-1.0 Immature Granulocyte % 0.5 % Normal 0-3.0 Nucleated Red Blood Cell % 0.0 % Normal 0-0 Neutrophils # 4.6 10 Normal 1.5-8.5 Lymph # 1.0 10 Low 1.5-5.0 [place] # 0.4 10 Normal 0.0-0.8 Eos # 0.1 10 Normal 0.0-0.5 Baso # 0.0 10 Normal 0.0-0.2 Comprehensive Metabolic Profil 09/30/[address] [address] [phone] Glucose, Fasting 98 mg/dL Normal 70-100 Blood [...] 0.6 Low 1.2-2.2 Complete Blood Count 09/22/2020 [facility] Furnace Repairer Helper: [place] [address] [phone] WBC 5.9 x10*3/UL 4.1 - 10.9 RBC [...] 2.0 - 7.8 Laboratory test finding 09/22/2020 [facility] Furnace Repairer Helper: [place] [address] [phone] Sed Rate 25 mm/hr High 0 - 15 Basic Metabolic Panel 09/22/2020 [facility] Furnace Repairer Helper: [place] [address] [phone] Glucose 100 mg/dL High 74 - 99 [...] mL/min >60 5 Laboratory test finding 09/22/2020 [facility] [employer] kristin ruth Furnace Repairer Helper: [place] [address] [phone] Thyroid Stimulating Hormone 0.19 uIU/mL Low 0.3 6 - 3.74 Lipid Profile 07/24/2020 [facility] Furnace Repairer Helper: [place] [address] [phone] Cholesterol 132 mg/dL 131 - 200 Triglycerides 72 mg/dL 30 - 150 HDL Cholesterol 54 mg/dL 35 - 60 LDL (Calculated) 64 CALC 50 - 159 Laboratory test finding 07/24/[address] 8671321 [phone] Digoxin Level 0.3 NG/ML Low 0.5-2.0 6 Laboratory test finding 07/24/2020 [facility] [employer] kristin ruth Furnace Repairer Helper: Dr Terrance Matson [place], [place] 3626562 [phone] Thyroid Stimulating Hormone 0.32 uIU/mL Low 0.3 6 - 3.74 Basic Metabolic Panel 07/24/2020 [facility] Furnace Repairer Helper: Dr Terrance Matson [place], [place] 3663397 [phone] Glucose 70 mg/dL Low 74 - 99 [...] mL/min >60 8 Laboratory test finding 07/24/2020 [facility] [employer] kristin ruth Furnace Repairer Helper: [place] [address] [phone] Sed Rate 45 mm/hr High 0 - 15 Magnesium 1.8 mg/dL 1.8 - 2.4 Complete Blood Count 07/24/2020 [facility] Furnace Repairer Helper: [place] [address] [phone] WBC 8.4 x10*3/UL 4.1 - 10.9 RBC [...] x10*3/UL 2.0 - 7.8 Ua Routine 07/16/2020 [facility] nter [address] [place] [address] [phone] Appearance, Urine CLEAR Normal Clear Color, Urine PRAMOD Normal Yellow PH,Urine 5.0 units Normal 5.0-9.0 Specific [place] Urine Auto 1.028 Normal 1.002-1.035 Protein, Urine [...] /LPF Normal 0-1 CBC With Differential 07/16/[address] [address] [phone] White Blood Count 7.6 10 Normal 4.0-10.0 [...] 36.0-66.0 Lymph % 18.1 % Low 24.0-44.0 [place] % 6.8 % Normal 2.0-8.0 Eos % 1.3 % Normal 0.0-3.0 Baso % 0.3 % Normal 0.0-1.0 Immature Granulocyte % 0.4 % Normal 0-3.0 Nucleated Red Blood Cell % 0.0 % Normal 0-0 Neutrophils # 5.6 10 Normal 1.5-8.5 Lymph # 1.4 10 Low 1.5-5.0 [place] # 0.5 10 Normal 0.0-0.8 Eos # 0.1 10 Normal 0.0-0.5 Baso # 0.0 10 Normal 0.0-0.2 Laboratory test finding 07/16/2020 [facility] [address] [place] [address] [phone] Erythrocyte Sedimentation Rate 68 mm/hr High 0 -30 Comprehensive Metabolic Profil 07/16/2020 [place] [address] [place] [address] [phone] Glucose, Fasting 97 mg/dL Normal 70-100 Blood [...] Low 1.2-2.2 Total Iron Binding Capacit 07/16/2020 [place] 9604047 [phone] Iron (Fe) 131 g/dL Normal 50-170 Total Iron Binding Capacity 305 g/dL Normal 250-450 Percent Saturation 43.0 % Normal 13.2-45.0 Immunoglobulin G,A,M 07/16/[address] [address] [phone] Immunoglobulin A 2640.0 mg/dL High 70-400 Immunoglobulin G 510 mg/dL Low 681-1648 Immunoglobulin M < 5.3 mg/dL Low 40-230 Immunotyping (Immunofixation) Serum (If 07/16/[address] [address] [phone] Immunotyping Serum Iga ABNORMAL High Normal Immunotyping Serum Lambda ABNORMAL High Normal It Serum Interpretation SEE COMMENT Normal 10 Its Pathologist Review REV'D BY O ADJAP <SEE NOTE> Normal 11 Laboratory test finding 07/16/[address] [address] [phone] Ferritin 128 NG/ML Normal 8-252 12 Beta 2 Microglobulin 3.7 mg/L High 0.6-2.4 13 Free [place] & Lambda LT Chains 07/16/2020 [place] [address] [place] 7573620 [phone] Free Brinsmade Light Chains Serum 6.4 mg/L Normal 3. 3-19.4 Free Lambda Light Chains Serum 517.2 mg/L High 5.7-26.3 [place]/Lambda Ratio Serum 0.01 Low 0.26-1.65 1 THERAPUTIC [...] Little GFR Left ESRD GFR <15 on MANAGEMENT INTERN 3 100-125 mg/dL PRE-DIABET ES/FASTING >126 mg/dL DIABETES/FASTING 4 NOTE: CALCIUM,TSH VERIFIED 5 CHRONIC KIDNEY DISEASE STAGI NG PER NKF STAGE I & II GFR >= 60 NORMAL TO MILDLY DECREASED STAGE III GFR 30-59 MODERATELY DECREASED STAGE IV GFR 15-29 SEVERELY DECREASED STAGE V GFR <15 VERY LITTLE GFR LEFT ESRD GFR <15 ON MANAGEMENT INTERN 6 note:<nlbl:demographic_chang ed> 7 100-125 mg/dL PRE-DIABET ES/FASTING >126 mg/dL DIABETES/FASTING 8 CHRONIC KIDNEY DISEASE STAGI NG PER NKF STAGE I & II GFR >= 60 NORMAL TO MILDLY DECREASED STAGE III GFR 30-59 MODERATELY DECREASED STAGE IV GFR 15-29 SEVERELY DECREASED STAGE V GFR <15 VERY LITTLE GFR LEFT ESRD GFR <15 ON MANAGEMENT INTERN 9 Units are mL/min/1.73 m2 Chronic Kidney Disease Staging per NKF: Stage I & II GFR >=60 Normal to Mildly Decreased Stage III GFR 30-59 Moderately Decreased Stage IV GFR 15-29 Severely Decreased Stage V GFR <15 Very Little GFR Left ESRD GFR <15 on MANAGEMENT INTERN 10 MONOCLONAL IGA,LAMBDA 11 REV'D BY Delbert WERNER 12 note:<nlbl:demographic_chang ed> 13 Siemens Immulite 2000 Immuno chemiluminometric assay (ICMA) . Values obtained with different assay methods or kits cannot be used interchangeably. Results cannot be interpreted as absolute evidence of the presence or absence of malignant disease. Performed at: - [facility] [address] [id number] Furnace Repairer Helper: Nataliya Owen MD, Phone: [phone] Performed at: - [facility] [address] [id number] Furnace Repairer Helper: Aaliyah Posadas MD, Phone: [phone] Procedures Date Code Description Status 11/14/2020 66131 Chronic Care MGMT 20 Mins Clinical Staff Time Per Calendar Month Completed 11/14/2020 21712 Chronic Care Management Services Ea Addl 20 Min Completed 10/28/2020 74165 Complex Chronic Care MGMT Servic e Ea Addl 30 Min Completed 10/28/2020 73516 Complex Chronic Care Management SVC 1St 60 Min Completed 09/26/2020 28518 Complex Chronic Care MGMT Servic e Ea Addl 30 Min Completed 09/26/2020 44301 Complex Chronic Care Management SVC 1St 60 Min Completed 09/22/2020 02728 Office/Outpatient Established Mo d MDM 30-39 Min Completed 08/25/2020 91773 Complex Chronic Care MGMT Servic e Ea Addl 30 Min Completed 08/25/2020 79064 Complex Chronic Care Management SVC 1St 60 Min Completed 07/25/2020 10274 Complex Chronic Care MGMT Servic e Ea Addl 30 Min Completed 07/25/2020 75313 Complex Chronic Care Management SVC 1St 60 Min Completed 07/24/2020 24664 Office/Outpatient Established Mo d MDM 30-39 Min Completed 06/19/2020 [id number] Bone Mineral Density Test Comple [place] 06/19/2020 49065836 Mammogram Completed Medical Devices Description No Information Available Encounters Type Date Location Provider Dx Diagnosis Office Visit 09/22/2020 1:30p [facility], PDelbert Sprague M.D. I48.20 Chronic atrial fibrillation, unspecified Z79.01 custodial (current) use of a nticoagulants R60.9 Edema, [...] hypercholesterolemia, u nspecified Office Visit 07/24/2020 1:30p [facility] Charan Sprague M.D. I48.20 Chronic atrial fibrillation, unspecified I10 Essential (primary) hyperten juanita E05.90 Thyrotoxicosis, unsp without thyrotoxic crisis or storm I82.502 Chronic embolism and thombos unsp deep veins of l low extrem Z79.01 custodial (current) use of a nticoagulants F17.210 Nicotine [...] uns pecified Zehra Sprague M.D. 09/22/2020 Z79.01 custodial (current) use of antic oagulants Zehra Sprague [...] lower extremity Zehra Sprague M.D. 07/24/2020 Z79.01 custodial (current) use of antic oagulants Zehra Sprague [...] 3:15 pm - [facility] 01/07/2021 - WENDY Mancilla JR* S81.802A Unspecified open wound, left lower leg, initial encounter * All * New Medication:* Cephalexin 500 mg - take one tablet by mouth 3 times daily x 7 days Functional Status Description No Information Available Mental Status Description No Information Available Referrals Description No Information Available
--- OUTSIDE RECORDS SUMMARY | 2021-01-26 14:46 | CCD | Continuity of Care Document ---
Author Organization Unknown Address Unknown Phone Unavailable Care Team Providers Care Construction Tech Name Role Phone Zehra Sprague MD AUTM [phone] Kelly Perse MD AUTM [phone] Problems Active Problems Provider Date Precordial pain Arvin Graham MD Onset: 03/12/2019 Dyspnea Arvin Graham MD Onset: 03/12/2019 Palpitations Arvin Graham MD Onset: 03/12/2019 Paroxysmal atrial fibrillation Arvin Graham MD Onset: Electrocardiogram abnormal Arvin Graham MD Onset: 2018 Cardiomegaly Arvin Graham MD Onset: 03/12/2019 Right bundle branch block Arvin Graham MD Onset: 019 Dietary management surveillance Arvin Graham MD Onset: 1 05/13/2018 Obstructive sleep apnea syndrome Arvin Graham MD Onset: 03/12/2019 Syncope and collapse Arvin Graham MD Onset: 03/12/2019 Chronic diastolic heart failure Arvin Graham MD Onset: 0 06/11/2019 Chronic pulmonary heart disease Arvin Graham MD Onset: 0 06/11/2019 Benign hypertensive heart disease with congestive card iac failure Arvin Graham MD Onset: 06/11/2019 Mitral valve disorder Arvin Graham MD Onset: 06/11/2019 Carotid artery occlusion WENDY Maria Onset: 05/27 Mixed hyperlipidemia WENDY Maria Onset: Deep venous thrombosis of lower extremity WENDY Maria Onset: 05/27/2020 Social History Type Date Description Comments Sex Unknown ETOH Use Occasionally consumes wine Tobacco Use Start: Unknown Patient is a current smoker, smo kes every day Started smoking at age 26, smokes 3 cigarettes a day Smoking Status Reviewed: 05/27/20 Patient is a current smoker, smokes every day Started smoking at age 26, smokes 3 cigarettes a day Exercise Type/Frequency Walks daily in good weather Exercise Type/Frequency Does housework daily Exercise Limitations Back Pain Exercise Limitations Orthopedic Problem Knee charline n Exercise Limitations Claudication Allergies, Adverse Reactions, Alerts Active Allergies Criticality Reaction | Severity Comments Date Motrin Unable to assess criticality GI Upset 03/12/2019 Medications Active Medications SIG Qnty Indications Ordering Provide r Date Eliquis 5mg Tablets 1 by mouth twice a day Zehra Sprague MD 05/26/2020 Digox 250mcg Tablets 1 by mouth every day 90tabs Arvin Graham MD 04/29/2019 Famotidine 40mg Tablets 1 tablet daily at bedtime 30tabs R07.2 Arvin Graham MD 03/12/2019 Acetaminophen 500mg Tablets 1-2 by mouth every 6 hours as needed Unknown 03/11/20 19 Atorvastatin Calcium 20mg Tablets 1 by mouth every night at bedtime Unknown 11/2018 One Daily Tablets 1 by mo ut every day Unknown 03/11/2019 Methimazole 10mg Tablets 1 by mouth every morning Unknown 03/11/2019 Vitamin E Blend 400Unit Capsules 1 by mouth every day Unknown 03/11/2019 Flecainide Acetate 100mg Tablets take one tablet by mouth twice a day 180tabs Arvin Graham MD 1 05/12/[address] 1 by mouth every day Unknown 03/11/2019 Metoprolol Tartrate 25mg Tablets 1 by mouth twice a day Unknown 03/11/2019 Mucus Relief DM 20-400mg Tablets 1 tab po at bedtime Unknown 03/11/2019 Furosemide 20mg Tablets 1 by mouth once a day Unknown Immunizations Description No Information Available Vital Signs Date Vital Result Comment 05/27/2020 1:02pm Weight 220.00 lb Height 65 inches 5'5" BMI (Body Mass Index) 36.6 kg/m2 Heart Rate 65 /min BP Systolic Sitting 136 mmHg Ra, large cuff BP Diastolic Sitting 84 mmHg Ra, large cuff 09/06/2019 12:43pm Weight 229.00 lb Height 65 inches 5'5" BMI (Body Mass Index) 38.1 kg/m2 Heart Rate 67 /min BP Systolic Sitting 126 mmHg large cuff, Ra BP Diastolic Sitting 74 mmHg large cuff, Ra Results Test Acquired Date Facility Test Result H/L Range Note CBC without Differential 10/15/2020 [facility] - not inter faced (315)- - White Blood Count 6.8 5.0-10.0 Red Blood Count 3.85 Low 4.00-5.40 Platelets 187 172-450 Hemoglobin 12.7 Hematocrit 39.4 CBC without Differential 09/30/2020 [facility] - not inter faced (315)- - White Blood Count 6.2 5.0-10.0 Red Blood Count 3.76 Low 4.00-5.40 Platelets 199 172-450 Hemoglobin 12.5 Hematocrit 39.0 CMP 09/30/2020 [facility] - not interfaced (315)- - Albumin Serum/Plasma 3.0 Alt - SGPT 19 Calcium Ser/Plasma Mass/Vol 10.2 Carbon Dioxide Ser/Plasm 27 Chloride Serum/Plasma 107 Alkaline Phosphatase 77 Potassium 4.7 Protein Total 8.3 Sodium 137 Ast - Sgot 23 BUN - Urea Nitrogen 28 Glucose 98 83-110 Creatinine For GFR 0.90 Complete Blood Count 07/24/2020 [facility] Impo rt WBC 8.4 x10*3/UL 4.1-10.9 RBC 4.20 x10*6/UL 4.20-6.30 Hemoglobin 14.0 g/dL 12.0-18.0 Hematocrit 40.3 % 37.0-51.0 MCV 95.8 fL 80.0-97.0 MCH 33.3 pg High 26.0-32.0 MCHC 34.7 g/dL 31.0-38.0 RDW 13.3 % 11.6-13.7 PLT 207 x10*3/UL 140-440 MPV 8.0 FL 7.8-11.0 Lymph % 17.5 % 10.0-58.5 Mid % 4.8 % 1.7-9.3 Neut % 77.7 % 37.0-92.0 Lymph # 1.4 x10*3/UL 0.6-4.1 Mid # 0.5 x10*3/UL 0.1-0.6 Neut # 6.5 x10*3/UL 2.0-7.8 Basic Metabolic Panel 07/24/2020 [facility] CCD Imp ort Glucose 70 mg/dL Low 74-99 1 BUN 23 mg/dL High 7-18 Creatinine 0.9 mg/dL 0.6-1.3 Sodium 144 mEq/L 136-145 Potassium 3.8 mEq/L 3.5-5.1 Chloride 104 mEq/L 98-107 Carbon Dioxide 32 mEq/L 21-32 Calcium 10.1 mg/dL 8.5-10.1 GFR >= 60 mL/min GFR >= 60 mL/min 2 Lipid Profile 07/24/2020 [facility] Impor t Cholesterol 132 mg/dL 131-200 Triglycerides 72 mg/dL 30-150 HDL Cholesterol 54 mg/dL 35-60 LDL (Calculated) 64 CALC 50-159 Laboratory test finding 07/24/2020 [facility] CCD I mport Thyroid Stimulating Hormone 0.32 uIU/mL Low 0.36-3.74 Digoxin Level 0.3 ng/mL Low 0.5-2.0 3 1 100-125 mg/dL PRE-DIABET ES/FASTING >126 mg/dL DIABETES/FASTING 2 CHRONIC KIDNEY DISEASE STAGI NG PER NKF STAGE I & II GFR >= 60 NORMAL TO MILDLY DECREASED STAGE III GFR 30-59 MODERATELY DECREASED STAGE IV GFR 15-29 SEVERELY DECREASED STAGE V GFR <15 VERY LITTLE GFR LEFT ESRD GFR <15 ON PAPERHANGER AND PAINTER 3 note:<nlbl:demographic_chang ed> Procedures Date Code Description Status 05/27/2020 15244 Office/Outpatient Established Lo w MDM 20-29 Min Completed 05/27/2020 77918 ECG 12-Lead Completed Medical Devices Description No Information Available Encounters Type Date Location Provider Dx Diagnosis Office Visit 05/27/2020 12:45p Main Office WENDY Maria I48 .0 Paroxysmal atrial fibrillation I50.32 Chronic diastolic (congestiv e) heart failure I11.0 Hypertensive heart disease w ith heart failure I27.81 Cor pulmonale (chronic) I65.29 Occlusion and stenosis of un specified carotid artery I34.0 Nonrheumatic mitral (valve) insufficiency E78.2 Mixed hyperlipidemia I82.503 Chronic emblsm and thombos u nsp deep veins of low extrm, bi R94.31 Abnormal electrocardiogram [ ECG] [EKG] Z71.3 Dietary counseling and surve illance Assessments Date Code Description Provider 05/27/2020 I48.0 Paroxysmal atrial fibrillation C WENDY Shipley 05/27/2020 I50.32 Chronic diastolic (congestive) h eart failure WENDY Maria 05/27/2020 I11.0 Hypertensive heart disease with heart failure WENDY Maria 05/27/2020 I27.81 Cor pulmonale (chronic) WENDY Hand 05/27/2020 I65.29 Occlusion and stenosis of unspec ified carotid artery WENDY Maria 05/27/2020 I34.0 Nonrheumatic mitral (valve) insu fficiency WENDY Maria 05/27/2020 E78.2 Mixed hyperlipidemia WENDY Brown 05/27/2020 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, bilateral WENDY Maria 05/27/2020 R94.31 Abnormal electrocardiogram [ECG] [EKG] WENDY Maria 05/27/2020 Z71.3 Dietary counseling and surveilla nce WENDY Maria Plan of Treatment Future Appointment(s):* 11/24/2020 1:30 pm - WENDY Maria at Main Office 05/27/2020 - WENDY Maria* I48.0 Paroxysmal atrial fibrillation* Recommendations:* Continue Eliquis, digoxin, flecainide, and metoprolol at the current dosages Patient agreeable to contact us with more frequent episodes of tachycardia or palpitations, discussed Holter monitor therapy with patient at this time she would like to refrain further evaluation * I50.32 Chronic diastolic (congestive) heart failure* Recommendations:* Continue digoxin, furosemide, and metoprolol at the current dosages Please alert our office with a weight gain of more than 3 pounds, onset of shortness of breath, or lower extremity edema * I11.0 Hypertensive heart disease with heart failure* New Labs:* BMP, Ordered: 05/27/20 * Recommendations:* Continue metoprolol at the current dosage Advised patient to monitor blood pressures at home and to alert our office with readings >140/> 90 * I27.81 Cor pulmonale (chronic)* Recommendations:* No medication changes made today Patient agreeable to contact us with the onset of any shortness of breath or edema * I65.29 Occlusion and stenosis of unspecified carotid artery* Recommendations: * Carotid ultrasound ordered for further evaluation Advised patient to seek emergency medical attention if she develops any further lateralizing neurologic symptoms * I34.0 Nonrheumatic mitral (valve) insufficiency* Recommendations:* No further evaluation is needed at this time * E78.2 Mixed hyperlipidemia* New Labs:* Lipid Panel, Ordered: 05/27/20 * Recommendations:* Please obtain fasting labs Continue atorvastatin at the current dosage * 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, bilateral* New Labs:* Protein C & S Activity Panel, Ordered: 05/27/20 * Factor V Leiden, Ordered: 05/27/20 * CBC W/Auto Differential, Ordered: 05/27/20 * Referral:* Kelly Peres MD, Hematology & Oncology/Phy * Recommendations:* Referral made to Dr. Peres for further evaluation of patient's probable coagulopathy Please obtain labs, to patient's knowledge she has never been assessed for protein C or protein S deficiency or for factor V Leiden mutation Advised patient to seek emergency medical attention if she does believe she is having another DVT or if she develops symptoms of shortness of breath, hemoptysis, or chest pain * R94.31 Abnormal electrocardiogram [ECG] [EKG]* Recommendations:* No further evaluation is needed at this time. * Z71.3 Dietary counseling and surveillance* Recommendations:* Recommended for patient to follow a more whole food diet. Advised patient to avoid overly processed foods and packaged foods. Advised patient to avoid sodas, juices and other liquid calories. Recommended at least 30 minutes of exercise 3 days a week. * All * Follow up:* Follow up in 6 months Functional Status Functional Condition Comment Date Status Independent with all ADL's Activ e Requires assistance with ambulating Active Mental Status Description No Information Available Referrals Refer to Reason for Referral Status Appt Date Kelly Peres MD Please evaluate and treat th is patient for an extensive history of repetitive, unprovoked deep vein thrombosis. To her knowledge, she has never been evaluated by a call worker in the past. Patient is relatively new to [facility] and may have seen a provider in [place]. I have ordered basic labs, including BMP, CBC, protein C&S, as well as factor V Leiden that we will forward to your office as they become available to us. Thank you for your care of this patient. Patient Declined 06/23/2020 [facility] - Oncology [address] [place], [place] [address] [phone]
--- OUTSIDE RECORDS SUMMARY | 2021-01-26 14:46 | CCD | Continuity of Care Document ---
Author Author Glenna CASAREZ PA Organization Unknown Address [address] [place] [address], [place] [address] Phone [phone] Care Team Providers Care Multiple Knife Edge Trimmer Operator Name Role Phone Zehra Sprague MD AUTM [phone] Kelly Peres MD AUTM [phone] Problems Active Problems Provider Date Precordial pain [...] valve disorder Arvin Graham MD Onset: 06/11/2019 Chronic cor pulmonale WENDY Maria Onset: 11/25/19 21 Mixed hyperlipidemia WENDY Maria Onset: 1 Deep venous thrombosis of lower extremity WENDY Maria Onset: 05/27/2020 Carotid artery occlusion WENDY Maria Onset: 05/27 Social History Type Date Description Comments Sex [...] 11/2018 One Daily Tablets 1 by mo uth every day Unknown 03/11/2019 Methimazole 10mg Tablets [...] H/L Range Note CBC without Differential 10/15/2020 [facility] - not inter faced (315)- - White Blood Count 6.8 5.0-10.0 Red Blood Count 3.85 Low 4.00-5.40 Platelets 187 172-450 Hemoglobin 12.7 Hematocrit 39.4 CBC without Differential 09/30/2020 [facility] - not inter faced (315)- - White Blood Count 6.2 5.0-10.0 Red Blood Count 3.76 Low 4.00-5.40 Platelets 199 172-450 Hemoglobin 12.5 Hematocrit 39.0 CMP 09/30/2020 [facility] - not interfaced (315)- - Albumin Serum/Plasma [...] LITTLE GFR LEFT ESRD GFR <15 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 note:<nlbl:demographic_chang ed> Procedures Date Code Description Status 12/05/2020 31507 Office/Outpatient Established Mo d MDM 30-39 Min Completed 12/05/2020 46573 ECG 12-Lead Completed 11/24/2020 87079 Office/Outpatient Established Mo d MDM 30-39 Min Completed 11/24/2020 11859 ECG 12-Lead Completed Medical Devices Description No Information Available Encounters Description No Information Available Assessments Date Code Description Provider 12/05/2020 I48.0 Paroxysmal atrial fibrillation C WENDY Shipley 12/05/2020 I50.32 Chronic diastolic (congestive) h eart failure WENDY Maira 12/05/2020 I11.0 Hypertensive heart disease with heart failure Hazel Casarez, PA 12/05/2020 I27.81 Cor pulmonale (chronic) Aryr hiram Casarez, PA 12/05/2020 I65.29 Occlusion and stenosis of unspec ified carotid artery Hazel Casarez, PA 12/05/2020 I34.0 Nonrheumatic mitral (valve) insu fficiency Hazle Casarez, PA 12/05/2020 E78.2 Mixed hyperlipidemia Hazel Casarez, PA 12/05/2020 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, bilateral Hazel Casarez, PA 12/05/2020 R94.31 Abnormal electrocardiogram [ECG] [EKG] Hazel Casarez, PA 12/05/2020 Z71.3 Dietary counseling and surveilla ohe Hazel Casarez PA 11/24/2020 I48.0 Paroxysmal atrial fibrillation C singh Casarez, PA 11/24/2020 I50.32 Chronic diastolic (congestive) h eart failure Hazel Casarez, PA 11/24/2020 I11.0 Hypertensive heart disease with heart failure Hazel Casarez, PA 11/24/2020 I27.81 Cor pulmonale (chronic) Ella Casarez, PA 11/24/2020 I65.29 Occlusion and stenosis of unspec ified carotid artery Hazel Casarez, PA 11/24/2020 I34.0 Nonrheumatic mitral (valve) insu fficiency Hazel Casarez, PA 11/24/2020 E78.2 Mixed hyperlipidemia Hazel Casarez, PA 11/24/2020 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, bilateral Hazel Casarez, PA 11/24/2020 R94.31 Abnormal electrocardiogram [ECG] [EKG] Hazel Casarez, WENDY 11/24/2020 Z71.3 Dietary counseling and surveilla WENDY Irizarry Plan of Treatment 05/27/2020 - WENDY Maria* I48.0 Paroxysmal atrial [...] I11.0 Hypertensive heart disease with heart failure* Recommendations:* Continue metoprolol at the current dosage Advised patient to monitor blood pressures at home and to alert our office with readings >140/>90 * I27.81 Cor pulmonale (chronic)* Recommendations:* No [...] at this time * E78.2 Mixed hyperlipidemia* Recommendations:* Please obtain fasting labs Continue atorvastatin at the current dosage * 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 Peres [...]
--- OUTSIDE RECORDS SUMMARY | 2021-01-26 14:46 | CCD | Continuity of Care Document ---
Author Organization Unknown Address Unknown Phone Unavailable Care Team Providers Care Liquid Compounder Name Role Phone Zehra Sprague MD AUTM [phone] Kelly Peers MD AUTM [phone] Problems Active Problems Provider Date Precordial pain [...] H/L Range Note CBC without Differential 10/15/2020 [facility] - not inter faced (315)- - White Blood Count 6.8 5.0-10.0 Red Blood Count 3.85 Low 4.00-5.40 Platelets 187 172-450 Hemoglobin 12.7 Hematocrit 39.4 CBC without Differential 09/30/2020 [facility] - not inter faced (315)- - White Blood Count 6.2 5.0-10.0 Red Blood Count 3.76 Low 4.00-5.40 Platelets 199 172-450 Hemoglobin 12.5 Hematocrit 39.0 CMP 09/30/2020 [facility] - not interfaced (315)- - Albumin [...] LITTLE GFR LEFT ESRD GFR <15 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 Patient is relatively new to [facility] and may have seen a provider in [place]. I have ordered basic labs, including BMP, CBC, protein C&S, as well as factor V Leiden that we will forward to your office as they become available to us. Thank you for your care of this patient. Patient Declined 06/23/2020 [facility] - Oncology [address] [place], [place] [address] [phone]
--- OUTSIDE RECORDS SUMMARY | 2021-01-26 14:46 | CCD | Continuity of Care Document ---
Author Organization Unknown Address Unknown Phone Unavailable Care Team Providers Care Stripe Matcher Name Role Phone Zehra Sprague MD AUTM [phone] Kelly Peres MD AUTM [phone] Problems Active Problems Provider Date Precordial pain [...] H/L Range Note CBC without Differential 10/15/2020 [facility] - not inter faced (315)- - White Blood Count 6.8 5.0-10.0 Red Blood Count 3.85 Low 4.00-5.40 Platelets 187 172-450 Hemoglobin 12.7 Hematocrit 39.4 CBC without Differential 09/30/2020 [facility] - not inter faced (315)- - White Blood Count 6.2 5.0-10.0 Red Blood Count 3.76 Low 4.00-5.40 Platelets 199 172-450 Hemoglobin 12.5 Hematocrit 39.0 CMP 09/30/2020 [facility] - not interfaced (315)- - Albumin [...] LITTLE GFR LEFT ESRD GFR <15 ON COMMUNICATION SPECIALIST 3 note:<nlbl:demographic_chang ed> Procedures Date Code Description Status 05/27/2020 06887 Office/Outpatient Established Lo w MDM 20-29 Min Completed 05/27/2020 72101 ECG 12-Lead Completed Medical Devices Description No [...] she has never been evaluated by a community specialist in the past. Patient is relatively new to [facility] and may have seen a provider in [place]. I have ordered basic labs, including BMP, CBC, protein C&S, as well as factor V Leiden that we will forward to your office as they become available to us. Thank you for your care of this patient. Patient Declined 06/23/2020 [facility] - Oncology [address] [place], [place] [address] [phone]
--- OUTSIDE RECORDS SUMMARY | 2021-01-26 14:46 | CCD | Continuity of Care Document ---
Author Author Glenna RAHMAN PA Organization Unknown Address [address] [place] [address], [place] [address] Phone [phone] Care Team Providers Care Rock Worker Name Role Phone Zehra Sprague MD AUTM [phone] Kelly Peres MD AUTM [phone] Problems Active Problems Provider Date Precordial pain [...] H/L Range Note CBC without Differential 10/15/2020 [facility] - not inter faced (315)- - White Blood Count 6.8 5.0-10.0 Red Blood Count 3.85 Low 4.00-5.40 Platelets 187 172-450 Hemoglobin 12.7 Hematocrit 39.4 CBC without Differential 09/30/2020 [facility] - not inter faced (315)- - White Blood Count 6.2 5.0-10.0 Red Blood Count 3.76 Low 4.00-5.40 Platelets 199 172-450 Hemoglobin 12.5 Hematocrit 39.0 CMP 09/30/2020 [facility] - not interfaced (315)- - Albumin Serum/Plasma [...] LITTLE GFR LEFT ESRD GFR <15 ON 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 AVAILABILITY 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 3 note:<nlbl:demographic_chang ed> Procedures Date Code Description Status 12/05/2020 07390 Office/Outpatient Established Mo d MDM 30-39 Min Completed 12/05/2020 99973 ECG 12-Lead Completed 11/24/2020 34063 Office/Outpatient Established Mo d MDM 30-39 Min Completed 11/24/2020 84889 ECG 12-Lead Completed Medical Devices Description No Information Available Encounters Description No Information Available Assessments Date Code Description Provider 12/05/2020 I48.0 Paroxysmal atrial fibrillation C WENDY Shipley 12/05/2020 I50.32 Chronic diastolic (congestive) h eart failure WENDY Maria 12/05/2020 I11.0 Hypertensive heart disease with heart failure Hazel Casarez, PA 12/05/2020 I27.81 Cor pulmonale (chronic) Aryr hiram Casarez, PA 12/05/2020 I65.29 Occlusion and stenosis of unspec ified carotid artery Hazel Casarez, PA 12/05/2020 I34.0 Nonrheumatic mitral (valve) insu fficiency Hazel Casarez, PA 12/05/2020 E78.2 Mixed hyperlipidemia Hazel Casarez, PA 12/05/2020 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
--- OUTSIDE RECORDS SUMMARY | 2021-01-26 14:48 | CCD ---
Author Author [facility] Organization [facility] Address Unknown Phone Unavailable Care Team Providers Care [employer] Name Role Phone Asim Sharma MD Unavailable Unavailable Asim Sharma MD Unavailable Unavailable Asim Sharma MD Unavailable Unavailable Asim Sharma MD Unavailable Unavailable Asim Sharma MD Unavailable Unavailable Asim Sharma MD Unavailable Unavailable Asim Sharma MD Unavailable Unavailable Asim Sharma MD Unavailable Unavailable Asim Sharma MD Unavailable Unavailable Asim Sharma MD Unavailable Unavailable Asim Sharma MD Unavailable Unavailable Fish, B Jean Carlos [...] B Jean Carlos GUIDRY Unavailable Unavailable Fish, [facility], PA-C Unavailable Unavailabl e Fish, [facility], PA-C Unavailable Unavailabl e Fish, [facility], PA-C Unavailable Unavailabl e Fish, [facility], PA-C Unavailable Unavailabl e Fish, [facility], PA-C Unavailable Unavailabl e Fish, [facility], PA-C Unavailable Unavailabl e Fish, [facility], PA-C Unavailable Unavailabl e Fish, [facility], PA-C Unavailable Unavailabl e Fish, [facility], PA-C Unavailable Unavailabl e Fish, [facility], PA-C Unavailable Unavailabl e Fish, [facility], PA-C Unavailable Unavailabl e Fish, [facility], PA-C Unavailable Unavailabl e Fish, [facility], PA-C Unavailable Unavailabl e Fish, [facility], PA-C Unavailable Unavailabl e Fish, [facility], PA-C Unavailable Unavailabl e Fish, [facility], PA-C Unavailable Unavailabl e Fish, [facility], PA-C Unavailable Unavailabl e Fish, [facility], PA-C Unavailable Unavailabl e Fish, [facility], PA-C Unavailable Unavailabl e Fish, [facility], PA-C Unavailable Unavailabl e Fish, [facility], PA-C Unavailable Unavailabl e Fish, [facility], PA-C Unavailable Unavailabl e Fish, [facility], PA-C Unavailable Unavailabl e Fish, [facility], PA-C Unavailable Unavailabl e Fish, [facility], PA-C Unavailable Unavailabl e Fish, [facility], PA-C Unavailable Unavailabl e Fish, [facility], PA-C Unavailable Unavailabl e Fish, [facility], PA-C Unavailable Unavailabl e Fish, [facility], PA-C Unavailable Unavailabl e Fish, [facility], PA-C Unavailable Unavailabl e Fish, [facility], PA-C Unavailable Unavailabl e Fish, [facility], PA-C Unavailable Unavailabl e Fish, [facility], PA-C Unavailable Unavailabl e Fish, [facility], PA-C Unavailable Unavailabl e Fish, [facility], PA-C Unavailable Unavailabl e Fish, [facility], PA-C Unavailable Unavailabl e PICKAsim SOLARES JR, PA-C Unavailable Unavailable PICKERAL Asim DOTY PA-C Unavailable Unavailable PICKERAL Asim DOTY PA-C Unavailable Unavailable PICKERAL JRAsim PA-C Unavailable Unavailable PICKERAL Asim DOTY PA-C Unavailable Unavailable Asim KESSLER JR, PA-C Unavailable Unavailable Asim KESSLER JR, PA-C Unavailable Unavailable PICKERAL JRAsim PA-C Unavailable Unavailable PICKERAL JRAsim PA-C Unavailable Unavailable PICKERAL JR, J DIONISIO PA-C Unavailable Unavailable PICKERAL JR, J DIONISIO PA-C Unavailable Unavailable PICKERAL JR, J DIONISIO PA-C Unavailable Unavailable PICKERAL JR, J DIONISIO PA-C Unavailable Unavailable PICKERAL JR, J DIONISIO PA-C Unavailable Unavailable PICKERAL JR, J DIONISIO PA-C Unavailable Unavailable PICKERAL JR, J DIONISIO PA-C Unavailable Unavailable PICKERAL JR, J DIONISIO PA-C Unavailable Unavailable PICKERAL JR, J DIONISIO PA-C Unavailable Unavailable PICKERAL JR, J DIONISIO PA-C Unavailable Unavailable PICKERAL JR, J DIONISIO PA-C Unavailable Unavailable PICKERAL JR, J DIONISIO PA-C Unavailable Unavailable PICKERAL JR, J DIONISIO PA-C Unavailable Unavailable PICKERAL JR, J DIONISIO PA-C Unavailable Unavailable PICKERAL JR, J DIONISIO PA-C Unavailable Unavailable PICKERAL JR, J DIONISIO PA-C Unavailable Unavailable PICKERAL JR, J DIONISIO PA-C Unavailable Unavailable PICKERAL JR, J DIONISIO PA-C Unavailable Unavailable David Sprague MD Unavailable Unavailable [...] Unavailable David Sprague MD Unavailable Unavailable Darcie, David Shahid MD Unavailable Unavailable Darcie, David Shahid MD Unavailable Unavailable Darcie, David Shahid MD Unavailable Unavailable BRINDA, L ADAIR PA Unavailable Unavailable BRINDA, L ADAIR PA Unavailable Unavailable BRINDA, L ADAIR PA Unavailable Unavailable BRINDA, L ADAIR PA Unavailable Unavailable BRINDA, L ADAIR PA Unavailable Unavailable BRINDA, L ADAIR PA Unavailable Unavailable BRINDA, L ADAIR PA Unavailable Unavailable BRINDA, L ADAIR PA Unavailable Unavailable BRINDA, L ADAIR PA Unavailable Unavailable BRINDA, L ADAIR PA Unavailable Unavailable BRINDA, L ADAIR PA Unavailable Unavailable BRINDA, L ADAIR PA Unavailable Unavailable BRINDA, L ADAIR PA Unavailable Unavailable BRINDA, L ADAIR PA Unavailable Unavailable BRINDA, L ADAIR PA Unavailable Unavailable BRINDA, L ADAIR PA Unavailable Unavailable ADJAPONG, ABDIAS Unavailable Unavailable Marrufo, L Callie RPA Unavailable Unavailable Marrufo, L Callie RPA Unavailable Unavailable Marrufo, L Callie RPA Unavailable Unavailable Marrufo, L Callie RPA Unavailable Unavailable Marrufo, L Callie RPA Unavailable Unavailable Marrufo, L Callie RPA Unavailable Unavailable Marrufo, L Callie RPA Unavailable Unavailable Marrufo, L Callie RPA Unavailable Unavailable Marrufo, L Callie RPA Unavailable Unavailable Marrufo, L Callie RPA Unavailable Unavailable Marrufo, L Callie RPA Unavailable Unavailable Marrufo, L Callie RPA Unavailable Unavailable Marrufo, L Callie RPA Unavailable Unavailable Marrufo, L Callie RPA Unavailable Unavailable Marrufo, L Callie RPA Unavailable Unavailable Marrufo, L Callie RPA Unavailable Unavailable Marrufo, L Callie RPA Unavailable Unavailable Marrufo, L Callie RPA Unavailable Unavailable Marrufo, L Callie RPA Unavailable Unavailable Marrufo, L Callie RPA Unavailable Unavailable Marrufo, L Callie RPA Unavailable Unavailable Marrufo, L Callie RPA Unavailable Unavailable Marrufo, L Callie RPA Unavailable Unavailable Marrufo, L Callie RPA Unavailable Unavailable Marrufo, L Callie RPA Unavailable Unavailable Marrufo, L Callie RPA Unavailable Unavailable Marrufo, L Callie RPA Unavailable Unavailable Marrufo, L Callie RPA Unavailable Unavailable Marrufo, L Callie RPA Unavailable Unavailable Marrufo, L Callie RPA Unavailable Unavailable Marrufo, L Callie RPA Unavailable Unavailable Marrufo, L Callie RPA Unavailable Unavailable Re-disclosure Warning The records that [...] is protected by Article 27-F of the [facility] Public Health law. If you continue you may have access to information: Regarding HIV / AIDS; Provided by facilities licensed or operated by the [facility] Office of Mental Health; or Provided by the [facility] Office for People With Developmental Disabilities. If such information is present, then the following [facility] mandated warning applies: This information has been [...] law may result in a fine or usp sentence or both. A general authorization for the release of medical or other information is NOT sufficient authorization for further disc losure. Allergies and Adverse Reactions Type Description Substance Reaction Status Data Source(s ) Drug Allergy Drug Allergy NKDA MEDENT ([facility], ) Family History Family Member Name Family Member Gender Family Member Status Date o f Status Description Data Source(s) Unknown Male Problem MED[facility] ([facility]) Unknown Male Problem MEDENT ([facility]) Encounters Encounter Providers Location Date Indications Data Source(s ) Unknown [id number] [facility] [address] 01/22/2021 12:00:00 AM EDT eCW1 ([facility]) Outpatient Attender: DIONISIO French 1 02:20:00 PM EDT MEDENT ([facility] ) Outpatient Admitter: ABDIAS ADJAPONGReferrer: ABDIAS ADJAPONG 10/15/2020 12:00:00 AM EDT Multiple myeloma not having achieved remission [facility] Multiple myeloma not having achieved rem ission Outpatient Attender: Callie Marrufo RPA Lucia/Howell/Omi/R eindl 09/29/2020 10:15:00 AM EDT MED[facility] ([facility]) Outpatient Attender: Zehra French 01:30:00 PM EDT MEDENT ([facility] ) Outpatient Attender: Callie Marrufo RPA Lucia/Howell/Omi/R eindl 09/11/2020 10:45:00 AM EDT MED[facility] ([facility]) Outpatient Attender: Zehra French 01:30:00 PM EDT MEDENT ([facility] ) Outpatient Attender: Jarek Sharma MD Physical Therapy 10:30:00 AM EDT MED[facility] ([facility]) Office Visit Attender: Lynette BRAY PA-C Physical Therapy 07/15/2020 01:15:00 PM EDT MED[facility] ([facility]) Outpatient Attender: Jean Carlos Mcginnis MD Physical Therapy 07/01/2020 1 2:45:00 PM EDT MED[facility] ([facility]) Outpatient Attender: Lynette BRAY PA-C Physical Therapy 06/24/2020 11:15:00 AM EDT MED[facility] ([facility]) Outpatient Attender: Zehra French 02:30:00 PM EDT MEDENT ([facility] ) Outpatient Attender: Callie Marrufo RPA Lucia/Howell/Omi/R eindl 06/12/2020 09:15:00 AM EST MED[facility] ([facility]) Outpatient Attender: ADAIR NGUYEN Main Office 05/27/2020 1 1:45:00 AM EST MED[facility] ([facility]) Outpatient Attender: Zehra French 12:00:00 PM EST MEDENT ([facility] ) Outpatient Attender: Zehra French 10:30:00 AM EDT MEDENT ([facility] ) Immunizations Vaccine Date Status Description Data Source(s) Influenza, injectable, MDCK, preservative free, mima valent 01/07/2021 02:31:00 PM EDT completed [facility] ([facility]) Influenza, injectable, MDCK, preservative free, mima valent 01/17/2020 12:10:00 PM EDT completed MEDENT ([facility]) Medications Medication Brand Name Start Date Product Form Dose Route Admi nistrative Instructions Pharmacy Instructions Status Indications Reaction Description Data Source(s) Cephalexin 500 MG Oral Capsule CEPHALEXIN 01/21/2021 12:00:00 AM EDT capsule 21 TAKE ONE CAPSULE BY MOUTH THREE TIMES A DAY FOR 7 DAYS TAKE ONE CAPSULE BY MOUTH THREE TIMES A DAY FOR 7 DAYS SOLD: 01/21/2021 [facility] Cephalexin 500 MG Oral Capsule CEPHALEXIN 01/07/2021 12:00:00 AM EDT capsule 21 TAKE ONE CAPSULE BY MOUTH THREE TIMES A DAY FOR 7 DAYS TAKE ONE CAPSULE BY MOUTH THREE TIMES A DAY FOR 7 DAYS SOLD: 01/07/2021 [facility] Cephalexin 500 MG Oral Capsule Cephalexin 01/07/2021 12:00:00 AM EDT ORAL active MEDENT ([facility]) Administration Of Flu Vaccine 01/07/2021 12:00:00 AM EDT completed MEDENT ([facility]) Medication administered onsite 2 ML Sodium Hyaluronate 10 MG/ML Prefilled Syringe [Euflexxa ] Euflexxa 07/15/2020 12:00:00 AM EDT active MED[facility] ([facility] ) atorvastatin 20 MG Oral Tablet ATORVASTATIN CALCIUM 06/25/2020 1 2:00:00 AM EDT tablet 90 TAKE ONE TABLET BY MOUTH EVERY D AY TAKE ONE TABLET BY MOUTH EVERY DAY SOLD: 07/08/2020 [facility] 25 mg 06/25/2020 12:00:00 AM EDT tablet 180 TAKE ONE TABLET BY MOUTH TWICE A DAY TAKE ONE TABLET BY MOUTH TWICE A DAY SOLD: 01/23/2021 [facility] atorvastatin 20 MG Oral Tablet ATORVASTATIN CALCIUM 06/25/2020 1 2:00:00 AM EDT tablet 90 TAKE ONE TABLET BY MOUTH EVERY D AY TAKE ONE TABLET BY MOUTH EVERY DAY SOLD: 01/23/2021 [facility] 25 mg 06/25/2020 12:00:00 AM EDT tablet 180 TAKE ONE TABLET BY MOUTH TWICE A DAY TAKE ONE TABLET BY MOUTH TWICE A DAY SOLD: 07/08/2020 [facility] 100 mg 06/19/2020 12:00:00 AM EDT tablet 180 TAKE ONE TABLET BY MOUTH TWICE A DAY TAKE ONE TABLET BY MOUTH TWICE A DAY SOLD: 06/20/2020 [facility] Famotidine 20 MG Oral Tablet FAMOTIDINE 06/18/2020 12:00:00 AM EDT tab let 90 TAKE ONE TABLET BY MOUTH EVERY DAY TAKE ONE TABLET BY MOUTH EVERY DAY SOLD: 01/23/2021 [facility] Acetaminophen 250 MG / Aspirin 250 MG / Caffeine 65 MG Oral Tablet [Excedrin] Excedrin Migraine 06/18/2020 12:00:00 AM EDT activ e MEDENT ([facility]) 20 mg 06/18/2020 12:00:00 AM EDT tablet 180 TAKE ONE TABLET BY MOUTH TWICE A DAY TAKE ONE TABLET BY MOUTH TWICE A DAY SOLD: 01/23/2021 [facility] 20 mg 06/18/2020 12:00:00 AM EDT tablet 90 TAKE ONE TABLET BY MOUTH EVERY DAY TAKE ONE TABLET BY MOUTH EVERY DAY SOLD: 06/19/2020 [facility] 20 mg 06/18/2020 12:00:00 AM EDT tablet 180 TAKE ONE TABLET BY MOUTH TWICE A DAY TAKE ONE TABLET BY MOUTH TWICE A DAY SOLD: 06/19/2020 [facility] 1 % 06/18/2020 12:00:00 AM EDT gel 100 APPLY UP TO 4 GRAMS THREE TIMES A DAY TO AFFECTED KNEE NEEDED APPLY UP TO 4 GRAMS THREE TIMES A DAY TO AFFECTED KNEE NEEDED SOLD: 06/19/2020 [facility] Famotidine 20 MG Oral Tablet Famotidine 06/17/2020 12:00:00 AM EDT ORAL active MEDENT ([facility]) Furosemide 20 MG Oral Tablet Furosemide 06/17/2020 12:00:00 AM EDT ORAL active MED[facility] ([facility]) 5 mg 06/16/2020 12:00:00 AM EDT tablet 40 TAKE ONE TABLET BY MOUTH EVERY DAY, EXCEPT TAKE 2 TABLETS ON TUESDAY, TUESDAY AND TUESDAY TAKE ONE TABLET BY MOUTH EVERY DAY, EXCEPT TAKE 2 TABLETS ON TUESDAY, TUESDAY AND TUESDAY SOLD: 06/17/2020 [facility] apixaban 5 MG Oral Tablet [Eliquis] Eliquis 05/26/2020 12:00:[address] ORAL active MED[facility] ([facility]) 24 HR Bupropion Hydrochloride 150 MG Extended [...] TABLET BY MOUTH TWICE A DAY SOLD: 06/17/2020 [facility] 24 HR Bupropion Hydrochloride 150 MG Extended Release Oral T ablet BUPROPION HCL 05/06/2020 12:00:00 AM EST tablet extended release 24 hr 30 TAKE ONE TABLET BY MOUTH EVERY MORNING TAKE ONE TABLET BY MOUTH EVERY MORNING SOLD: 06/15/2020 [facility] 5 mg 05/06/2020 12:00:00 AM EST tablet 60 TAKE ONE TABLET BY MOUTH TWICE A DAY TAKE ONE TABLET BY MOUTH TWICE A DAY SOLD: 05/07/2020 [facility] 24 HR Bupropion Hydrochloride 150 MG Extended Release Oral Tablet Bupropion Hydrochloride ER (XL) 05/05/2020 12:00:00 AM EST ORAL a ctive MEDENT ([facility]) 24 HR Bupropion Hydrochloride 150 MG Extended Release Oral Tablet Bupropion Hydrochloride ER (XL) 05/05/2020 12:00:00 AM EST ORAL a ctive MEDENT ([facility]) 5 mg 03/15/2020 12:00:00 AM EST [...] 12:00:[address] ORAL active MEDENT ([facility]) apixaban 5 MG Oral Tablet [Eliquis] Eliquis 02/18/2020 12:00:[address] ORAL active MEDENT ([facility]) Administration Of Flu Vaccine 01/17/2020 12:00:00 AM EDT completed [facility] ([place] [place] [facility]) Medication administered onsite 20 mg 11/07/2019 12:00:00 AM EDT tablet 90 TAKE ONE TABLET BY MOUTH EVERY MORNING TAKE ONE TABLET BY MOUTH EVERY MORNING SOLD: 04/17/2020 [facility] 5 mg 10/10/2019 12:00:00 AM EDT tablet 30 TAKE 1/2 TABLET BY MOUTH ONCE DAILY TAKE 1/2 TABLET BY MOUTH ONCE DAILY SOLD: 01/26/2020 [facility] 40 mg 09/18/2019 12:00:00 AM EDT tablet 30 TAKE ONE TABLET BY MOUTH AT BEDTIME TAKE ONE TABLET BY MOUTH AT BEDTIME SOLD: 01/26/2020 [facility] 40 mg 09/18/2019 12:00:00 AM EDT tablet 30 TAKE ONE TABLET BY MOUTH AT BEDTIME TAKE ONE TABLET BY MOUTH AT BEDTIME SOLD: 04/17/2020 [facility] Famotidine 40 MG Oral Tablet FAMOTIDINE 09/18/2019 12:00:00 AM EDT tab let 30 TAKE ONE TABLET BY MOUTH AT BEDTIME TAKE ONE TABLET BY MOUTH AT BEDTIME SOLD: 06/15/2020 [facility] Digoxin 0.25 MG Oral Tablet 250 mcg (0.25 mg) DIGOXIN 07/05/2019 12:00:00 AM EDT tablet 90 TAKE ONE TABLET BY MOUTH JOAN DAY TAKE ONE TABLET BY MOUTH EVERY DAY SOLD: 04/17/2020 [facility] 10 mg 03/07/2019 12:00:00 AM EST tablet 90 TAKE ONE TABLET BY MOUTH EVERY DAY TAKE ONE TABLET BY MOUTH EVERY DAY SOLD: 01/26/2020 [facility] 100 mg 02/22/2019 12:00:00 AM EST tablet 180 TAKE ONE TABLET BY MOUTH TWICE A DAY TAKE ONE TABLET BY MOUTH TWICE A DAY SOLD: 01/26/2020 [facility] 25 mg 02/22/2019 12:00:00 AM EST tablet 180 TAKE ONE TABLET BY MOUTH TWICE A DAY TAKE ONE TABLET BY MOUTH TWICE A DAY SOLD: 01/26/2020 [facility] Insurance Providers Payer name Policy type / Coverage type Policy ID Covered libertarian ID Covered libertarian's relationship to godwin Policy Godwin Plan Information [place] [employer] [facility] [place] Part B [id number] Family Dependent [id number] [place] [employer] [facility] [place] Part B [id number] Family Dependent [id number] [place] [employer] [facility] [place] Part B [id number] Family Dependent [id number] Medicare Natl Govt Serv Medicare Primary [id number] Self [id number] Medicare Natl Govt [facility] Medicare Primary [id number] Self [id number] [place] [id number] Self [id number] Medicare [facility] Govt [facility] Medicare Primary [id number] Self [id number] MEDICARE A [id number] Self [id number] Medicare Natl Govt [facility] Medicare Primary [id number] Self [id number] Medicare Natl Govt Serv Medicare Primary [id number] Self [id number] Medicare Natl Govt Serv Medicare Primary [id number] Self [id number] [place] Primary [id number] Self [id number] Medicare Natl [facility] Primary [id number] Self [id number] Medicare Natl [facility] Medicare Primary [id number] Self [id number] Medicare Natl [facility] Medicare Primary [id number] Self [id number] Medicare Natl [facility] Medicare Primary [id number] Self [id number] Medicare Natl [facility] Medicare Primary [id number] Self [id number] Medicare Natl Govt Servic Medicare Primary [id number] Self [id number] Medicare Natl [facility] Medicare Primary [id number] Self [id number] [place] Primary [id number] Self [id number] FOR LIFE U [id number] Self [id number] WPS For Life Med[employer] Part B [id number] Family Dependent [id number] FOR LIFE [id number] SP [id number] MEDICARE C [id number] S [id number] [id number] FOR LIFE O [id number] S [id number] WPS For Life Medigap Part B [id number] Family Dependent [id number] [employer]PS For Life Medigap Part B [id number] Family Dependent [id number] [employer] Life [employer] Part B [id number] Family Dependent [id number] [employer] For Life Medigap Part B [id number] Family Dependent [id number] [employer] For Life Medigap Part B [id number] Family Dependent [id number] [employer] For Life Med[employer]ap Part B [id number] Family Dependent [id number] [employer] For Life Med[employer]ap Part B [id number] Family Dependent [id number] [employer] Life Med[employer] Part B [id number] Family Dependent [id number] [employer] For Life Medigap Part B [id number] Family Dependent [id number] MEDICARE [id number] SP [id number] A MEDICARE C [id number] S [id number] A S [employer], [facility] C [id number] S [id number] [employer]PS For Life Medigap Part B [id number] Family Dependent [id number] MEDICARE [id number] SP [id number] [id number] WPS For Life Medigap Part B [id number] Family Dependent [id number] [employer]PS For Life Medigap Part B [id number] Family Dependent [id number] Problems, Conditions, and Diagnoses Code Display Name Description Problem Type Effective Dates Data Source(s) C90.00 Multiple myeloma not having achieved rem ission Multiple myeloma not having achieved remission Diagnosis 10/15/2020 01:43:[address] 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 Problem 01/22/2021 12:00:00 AM EDT eCW1 ([facility]) L97.822 [id number] Non-pressure chronic ulcer of other part of left lower leg with fat layer exposed Problem 01/22/2021 12:00:00 AM EDT eCW1 ([facility]) I27.81 Chronic cor pulmonale Chronic cor pulmonale Problem 11/24/2020 12:00:00 AM EDT MEDENT ([facility]) I65.29 Carotid artery occlusion Carotid artery occlusion Prob muriel 05/27/2020 12:00:00 AM EST MED[facility] ([facility]) I82.503 Deep venous thrombosis of lower extremit y Deep venous thrombosis of lower extremity Problem 05/27/2020 12:00:00 AM EST [facility] ([facility] E78.2 Mixed hyperlipidemia Mixed hyperlipidemia Problem 05/27/2020 12:00:00 AM EST MEDENT ([facility]) Surgeries/Procedures Procedure Description Date Indications Data Source(s) OFFICE OUTPATIENT VISIT 15 MINUTES 01/07/2021 12:00:00 AM EDT MEDENT ([facility]) ECG ROUTINE ECG W/LEAST 12 LDS W/I&R 12/05/2020 12:00: 00 AM EDT MED[facility] ([facility]) OFFICE OUTPATIENT VISIT 25 MINUTES 12/05/2020 12:00:00 AM EDT MED[facility] ([facility]) ECG ROUTINE ECG W/LEAST 12 LDS W/I&R 11/24/2020 12:00: 00 AM EDT MED[facility] ([facility]) OFFICE OUTPATIENT VISIT 25 MINUTES 11/24/2020 12:00:00 AM EDT MEDENT ([facility]) Chronic Care Management Services Ea Addl 20 Min 2020 12:00:00 AM EDT MEDSOLITARIO ([facility]) Chronic Care MGMT 20 Mins Clinical Staff Time Per Calendar M [facility] 11/14/2020 12:00:00 AM EDT MEDENT ([facility] ) Complex Chronic Care Management SVC 1St 60 Min 021 12:00:00 AM EDT MEDSOLITARIO ([facility]) Complex Chronic Care MGMT Service Ea Addl 30 Min 10/28 12:00:00 AM EDT MEDENT ([facility]) OFFICE OUTPATIENT VISIT 25 MINUTES 09/29/2020 12:00:00 AM EDT MEDENT ([facility] ) Complex Chronic Care Management SVC 1St 60 Min 021 12:00:00 AM EDT MEDENT ([facility]) Complex Chronic Care MGMT Service Ea Addl 30 Min 09/26 12:00:00 AM EDT MEDENT ([facility]) OFFICE OUTPATIENT VISIT 25 MINUTES 09/22/2020 12:00:00 AM EDT MEDENT ([facility]) OFFICE OUTPATIENT VISIT 25 MINUTES 09/11/2020 12:00:00 AM EDT MEDSOLITARIO ([facility], ) Complex Chronic Care Management SVC 1St 60 Min 021 12:00:00 AM EDT MEDSOLITARIO ([facility]) Complex Chronic Care MGMT Service Ea Addl 30 Min 08/25 12:00:00 AM EDT MEDSOLITARIO ([facility]) Complex Chronic Care Management SVC 1St 60 Min 021 12:00:00 AM EDT MEDSOLITARIO ([facility]) Complex Chronic Care MGMT Service Ea Addl 30 Min 07/25 12:00:00 AM EDT MEDSOLITARIO ([facility]) OFFICE OUTPATIENT VISIT 25 MINUTES 07/24/2020 12:00:00 AM EDT [facility] [facility]) ARTHROCENTESIS ASPIR&/INJECTION MAJOR JT/BURSA 021 12:00:00 AM EDT [facility] ) RADEX SHOULDER COMPLETE MINIMUM 2 VIEWS 07/18/2020 12: 00:00 AM EDT [facility] ([facility] ) ARTHROCENTESIS ASPIR&/INJECTION MAJOR JT/BURSA 021 12:00:00 AM EDT [facility] ([facility]) Complex Chronic Care Management SVC 1St 60 Min 021 12:00:00 AM EDT [facility] ([facility]) Complex Chronic Care MGMT Service Ea Addl 30 Min 07/01 12:00:00 AM EDT [facility] ([facility]) INJECTION 1 TENDON SHEATH/LIGAMENT APONEUROSIS 021 12:00:00 AM EDT [facility] ([facility]) ARTHROCENTESIS ASPIR&/INJECTION MAJOR JT/BURSA 021 12:00:00 AM EDT [facility] ([facility]) RADIOLOGIC EXAM KNEE COMPLETE 4/MORE VIEWS 06/24/2020 12:00:00 AM EDT [facility] ([facility]) RADIOLOGIC EXAM KNEE COMPLETE 4/MORE VIEWS 06/24/2020 12:00:00 AM EDT [facility] ([facility]) Mammogram 06/19/2020 12:00:00 AM EDT M [facility] ([facility]) Bone Mineral Density Test 06/19/2020 12:00:00 AM EDT [facility] ([facility]) Brief Emotional/Behav Assessment W/ Scoring Doc Per Standard Inst 06/17/2020 12:00:00 AM EDT [facility] ([facility] ) OFFICE OUTPATIENT VISIT 25 MINUTES 06/17/2020 12:00:00 AM EDT [facility] ([facility]) OFFICE OUTPATIENT NEW 45 MINUTES 06/12/2020 12:00:00 A M EST [facility] ([facility], ) ECG ROUTINE ECG W/LEAST 12 LDS W/I&R 05/27/2020 12:00: 00 AM EST [facility] ([facility]) OFFICE OUTPATIENT VISIT 15 MINUTES 05/27/2020 12:00:00 AM EST [facility] ([facility]) Complex Chronic Care Management SVC 1St 60 Min 021 12:00:00 AM EST [facility] ([facility]) Complex Chronic Care MGMT Service Ea Addl 30 Min 05/27 12:00:00 AM EST [facility] ([facility]) OFFICE OUTPATIENT VISIT 25 MINUTES 05/05/2020 12:00:00 AM EST [facility] ([facility]) Complex Chronic Care Management SVC 1St 60 Min 020 12:00:00 AM EST [facility] ([facility]) Complex Chronic Care MGMT Service Ea Addl 30 Min 03/25 12:00:00 AM EST [facility] ([facility]) Brief Emotional/Behav Assessment W/ Scoring Doc Per Standard Inst 01/31/2020 12:00:00 AM EDT [facility] ([facility] ) Results ID Date Data Source [id number] 01/07/2021 02:57:00 PM EDT [facility] ([facility]) Name Value Range Interpretation Code Description Data Mariposa rce(s) Supporting Document(s) Bacteria identified in Wound shallow by Aerobe culture Laborator y test result [facility] ([facility]) ID Date Data Source [id number] 10/15/2020 12:29:00 PM EDT [facility] ([facility]) Name Value Range Interpretation Code Description Data Mariposa rce(s) Supporting Document(s) White Blood Count 6.8 5.0-10.0 [facility] ([facility]) Platelets 187 172-450 [facility] Red Blood Count 3.85 4.00-5.40 [facility] ([facility]) Hemoglobin 12.7 [facility] ([facility]) Hematocrit 39.4 [facility] ([facility]) ID Date Data Source [id number] 10/15/2020 12:21:00 PM EDT [facility] ([facility]) Name Value Range Interpretation Code Description Data Mariposa rce(s) Supporting Document(s) White Blood Count 6.8 10 4.0-10.0 [facility] ([facility]) Red Blood Count 3.85 10 4.00-5.40 [facility] ([facility]) Mean Corpuscular Volume 102.3 fl 80.0-96.0 [facility] ([facility]) Hemoglobin 12.7 g/dL 12.0-15.5 [facility]) Hematocrit 39.4 % 36.0-47.0 [facility] Mean Corpuscular Hemoglobin 33.0 pg 27.0-33.0 [facility] ([facility]) Mean Corpuscular HGB Conc 32.2 g/dL 32.0-36.5 [facility] NT ([facility]) Red Cell Distribution Width 12.3 % 11.5-14.5 [facility] ([facility]) Platelet Count, Automated 187 10 150-450 [facility] NT ([facility]) Neutrophils % 72.2 % 36.0-66.0 [facility] ([facility]) Lymph % 19.9 % 24.0-44.0 [facility]) Norton % 6.0 % 2.0-8.0 [facility]) Eos % 1.5 % 0.0-3.0 [facility]) Baso % 0.3 % 0.0-1.0 [facility]) Immature Granulocyte % 0.1 % 0-3.0 [facility] ([facility]) Nucleated Red Blood Cell % 0.0 % 0-0 MED [facility] ([facility]) Lymph # 1.4 10 1.5-5.0 [facility]) Neutrophils # 4.9 10 1.5-8.5 [facility]) Norton # 0.4 10 0.0-0.8 [facility] ([facility]) Eos # 0.1 10 0.0-0.5 [facility] ([facility]) Baso # 0.0 10 0.0-0.2 [facility] ([facility]) ID Date Data Source [id number] 10/17/2020 05:25:00 PM EDT [facility] Hematopathology Report See Addendum Levi wName: JUAN CARLOS SMITHMRN: [id number] Number: [id number] Date: 10/15/2020 00:00Received Date: 10/16/2020 13:57Physician(s): ABDIAS WERNER MD ADJAPONG, OPOKU,[facility] [place] [facility]) ReceivedA: Bone Marrow, Flow Cytometry; RECEIVED 1 GREEN TOP BM, 2 ASP AND 1 PBSMEAR (1 EXTRA EDTA BM SENT TO MOLECULAR)Clinical HistoryMultiple myeloma.TEST REQUESTED/PERFORMED: Flow cytometry analysis DiagnosisFlow cytometry of bone marrow: Dilute specimen with small population oflambda restricted plasma cells (1% on bone marrow aspirate), consistentwith plasma cell neoplasm. Correlation with full bone marrow biopsy isrecommended. FISH study is pending. Oscar Caro M.D.;Resident PathologistElectronically Signed By JAVI ECHEVARRIA M.D. Attending Pathologist 117:25:03The attending pathologist named above attests that he/she has personallyreviewed the relevant preparation(s) for the specimen(s) and rendered thefinal diagnosis. Addendum 10/27/2020 FISH identified gain of 1q, trisomy 5, and monosomy 13 in a plasmacell-enriched population. FISH was negative for gain/loss of chromosome 7and 9, deletion of IgH and TP53, and an IgH rearrangement. See [id number] of 1q and deletion of 13q are associated with progression. Nhifetpn10z is generally associated with an intermediate risk and 1q gain isassociated with high risk. Addendum Electronically Signed By: Brenda Jeffery M.D. 10/27/2020 11:16 ProceduresFlow Cytometry Date Ordered:10/16/2020 Status: Signed Out10/17/2020 InterpretationPERIPHERAL BLOOD: CBC performed at [facility] (10/15/20)WBC 6.8 K/uLRBC *3.85 M/uLHgb 12.7 g/dLHct 39.4 %MCV *102.3 fLMCH 33.0 pgMCHC 32.2 g/dLRDW 12.3 %Platelets 187 K/ulDifferential Count (automated):72.2 % Neutrophils 1.5 % Eosinophils 0.3 % Dvbnooxyl19.9 % Lymphocytes 0.1 % Atypical Lymphocytes 6.0 % Monocytes-------100.0 % A peripheral blood film is reviewed. BONE MARROW ASPIRATE:Differential Count (100 cells): 6 % Erythroid Precursors 2 % N. Myelocytes 1 % N. Metamyelocytes and Band Forms80 % Neutrophils 4 % Eosinophils 1 % Basophils 5 % Lymphocytes 1 % Plasma Cells--------100 % Morphology: Dilute sample.Lymphoid Panel: Sana Manzanares 21 1829 [id number] following markers were assayed: CD45 (gate), CD2, CD3, CD4, CD5, CD7,CD8, CD10, CD19, CD20, CD33, CD34, CD38, CD56, CD57, CD64, CD117, CD123,HLA-DR, Mercedes, and Lambda.#events: [id number]: 98%Flow Cytometry Differential (CD45/SSC)Lymphocyte [place]: 15%CD45 dim [place]: 1%Monocyte [place]: 4%Granulocyte [place]: 73%Nucleated/Erythroid [place]: 2%The lymphocyte gate showsB-cells (CD19): 14%T-cells (CD3): 75%NK-cells (CD3-/CD56+): 9%Mercedes/Lambda Ratio: 2.9CD4/CD8 Ratio: 1.8Results: (expressed as % of lymphocyte gate)T-cell Markers: CD2 = 80, CD3 = 75, CD3/CD4 = 48, CD3/CD8 = 27, CD5 = 74,CD7 = 75, CD3/57 = 8B-cell wendi ers: Mercedes = 9, Lambda = 3, CD19 = 14, CD20 = 16, CD19/10 = 1,CD19/CD5 = 3, CD38/CD20 = 15Light chain as % of B-Cells: CD19/Mercedes = 54, CD19/Lambda = 17CD19/CD5/Mercedes = 4, CD19/CD5/Lambda = 5CD19/CD10/Mercedes = 7, CD19/CD10/Lambda = 1NK cell Markers: CD56 = 12, CD57 = 13Other Markers: CD10 = 1, CD38 = 63Results: (expressed as % of CD45 dim gate)T-cell Markers: CD2 = 27, CD3 = 8, CD3/CD4 = 2, CD3/CD8 = 4, CD5 = 10, CD7= 26, CD3/57 = 2B-cell markers: Mercedes = 29, Lambda = 0, CD19 = 16, CD20 = 14, CD19/10 =12, CD19/CD5 = 3, CD38/CD20 = 11Light chain as % of B-Cells: CD19/Mercedes = 0, CD19/Lambda = 0CD19/CD10/Mercedes = 6, CD19/CD10/Lambda = 2NK cell Markers: CD56 = 16, CD57 = 13Basophil Markers: CD123 (HLA-DR-) = 19Other Markers: CD10 = 25, CD38 = 85, CD33 = 47, CD34 = 23, CD64 = 20,CD117 = 5, CD123 = 56, HLA-DR = 57Myeloma Panel for Sana Manzanares HP21 1829 [id number] following markers were assayed: CD45 (cell gate), CD138 (plasma cellgate), CD19, CD20, CD38, CD56, cytoplasmic Mercedes, and cytoplasmic La mbda.(Please note, that Cytoplasmic Mercedes and Cytoplasmic Lambda are used todetect plasma cells, while surface Mercedes and Lambda are for lymphocytes).#events: [id number]: Routinely a minimum of 500,000 events are collected in each paneltube. Due to sample cellularity and/or processing this number was notachievable for this sample.Flow Cytometry Differential:Lymphocyte [place]: 13%CD45 dim [place]: 2%Monocyte [place]: 4%Granulocyte [place]: 74%NRBC [place]: 3%CD138 Plasma Cell [place]: 0%Results: (expressed as % of lymphocyte gate)B-Cells (CD19): 14% CD19 = 14, CD20 = 14Light chain as % of B-Cells: Cytoplasmic Mercedes/ CD20 = 49, CytoplasmicLambda/CD20 = 26Results: (expressed as % of total CD138+ plasma cell gate)CD38 = 64, CD56 = 40, CD38/56 = 37, CD19 = 12, CD20 = 5Cytoplasmic Mercedes/CD138 = 0, Cytoplasmic Lambda/CD138 = 67 Results- CommentsLymphocytes consist predominantly of T cells with normal expression of panT-cell markers and a normal CD4/CD8 ratio, normal proportions of NK andcytotoxic T cells, and polyclonal B cells.CD34+ blasts comprise fewer than 1% of cells studied. Blasts, monocytes,and granulocytes show no definitive immunophenotypic aberrancies.Plasma cell-associated markers show very small population of lambdarestricted plasma cells comprising less than 1% of cells, mostly negativefor CD19 and positive for CD56. Procedure Electronically Signed By:JAVI ECHEVARRIA M.D.10/17/2020 This report may include one or more immunohistochemical stain/fluorochromeconjugated monoclonal antibody results that use analyte specific reagents.All positive and negative controls have been reviewed by the attendingpathologist and are satisfactory. The tests were developed and theirperformance characteristics determined by [facility] Pathology department.They have not been cleared or approved by the US Food and DrugAdminis tration. The FDA has determined that such clearance or approval isnot necessary. Name Value Range Interpretation Code Description Data Mariposa rce(s) Supporting Document(s) ID Date Data Source [id number] 10/24/2020 01:04:00 PM [facility] Cytogenetics ReportName: JUAN CARLOS SMITHMRN: [id number] Number: [id number] Date: 10/15/2020 00:00Received Date: 10/16/2020 13:50Physician(s): ABDIAS WERNER MD ADJAPONG, OPOKU, MDSpecimen(s) ReceivedA: Bone Marrow - Karyo and Multiple Myel FISHClinical [id number] patient with multiple myeloma.TEST REQUESTED/PERFORMED: Chromosome analysis and fluorescence in situhybridization (FISH) DiagnosisFISH identified 11% of nuclei with gain of 1q; 11% with trisomy 5; and 10%with monosomy 13 in this plasma cell-enriched population of cells. FISHwas negative for gains or losses of chromosomes 7 and 9; deletions dq62z10.3 (IgH), and 17p13 (TP53); and an IgH rearrangement.Gains of chromosome 1q in plasma cell dyscrasia/multiple myeloma occur inup to 40% of cases, are secondary aberrations and are associated withprogression. 13q deletions are detected in approximately 50% of MM and arealso secondary events, although their presence in monoclonal gammopathy ofuncertain significance (MGUS) suggests they occur early in diseaseprogression. While deletion 13q is generally associated with anintermediate risk, 1q gain is often characterized as high risk (1-3).Please correlate with the concurrent Hematopathology report, [id number]. References:1. Shagufta Li. 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 AtlasGenet Cytogenet Oncol Haematol. 1998;2(3):86-87.http://AtlasGeneticsOncology.org/[email or web address].html. Lastvisited .2. Delbert & Kentrell. Mature B- and T-cell neoplasms and Hodgkinlymphoma. In Cancer Cytogenetics: Chromosomal and Molecular GeneticAberrations of Tumor Cells, 4th Edition. Bharti & Yumiko, eds. Garcia &Sons, Ltd. 2015. 3. Tirso HARRIS. Multiple myeloma: 2020 update on diagnosis,risk-stratification and management. Am J Hematol. 2020 95(11):1444. Electronically Signed By Cody Coppola, PhD Attending Pathologist 10/24/2020 13:04:45Gross DescriptionFluorescence in situ Hybridization (FISH)multiple myeloma FISH panel:nucish(VMUH4Tw4,CKS1Bx 3)[],(5p15.31,EGR1)x3[],(O64K502,13q34)x1[],(IgHx2)[],(T P53,D17Z1)x2[98/100] CEP 7/J9M052 (7q31):nuc danita(D7Z1,F0V500)x2[98/100] CEP 9:nuc danita(D9Z1x2)[98/100]DescriptionA plasma cell-enriched population evaluated by FISH: gain of 1q (11%);trisomy 5 (11%); monosomy 13 (10%); negative for gains or losses ofchromosomes 7 and 9; deletions IgH, and TP53; and IgH rearrangement. Test Data:Fluorescence in situ Hybridization (FISH): Enriched Plasma Cells Probe Normal Cut-off Nuclei Analyzed FISH SIGNAL PATTERNS Normal Abnormal NKCS *LSI CDKN2C (1p22.3) G LSI CKS1B (1q21.3) O 3% 100 2G2O: 84% 2G3O: 11% 5% *LSI 5p15.31 G LSI EGR1 (5q31.2) R 3% 100 2G2R: 89% 3G3R: 11% 0% *CEP 7 (D7Z1) G LSI N1Q807 (7q31) R 3% 100 2G2R: 98% 0% 2% CEP 9 (D9Z1) G 3%100 2% 0% 2% *LSI N62N778 (13q14.2) O LSI 13q34 G 3% 100 2O2% 1O1% 3% *LSI IgH(14q32) Y BA 3% 100 2Y: 97% 0% 3% *LSI TP53 (17p13.1) O CEP 17 (D17Z1) G 3% 100 2O2% 0% 2% Vendor: *[employer] Probes: LSI: Locus Specific Probe; CEP: Centromeric Probe; BA: BreakApartFluorochromes/ Signals: G - Green; O orange; R Red; Y - yellow(fusion) NKCS: Signals with No Known Clinical SignificanceDisclaimer: The plasma cells evaluated in this study were isolated fromthe bone marrow mixed cell population utilizing immunomagnetic cellseparation. This technology significantly enriches the test cellpopulation for plasma cells, thereby improving FISH detection of anomaliesassociated with plasma cell myeloma. However, as this is a selectivepopulation, the true in vivo frequencies of the anomalies identifiedcannot be determined. The FISH test was developed and its performance wasvalidated by the Cytogenetics section of the Department of ClinicalPathology. This test has not been cleared or approved by the U. S. Foodand Drug Administration (FDA). The FDA has determined that such approvalis not necessary. However, the procedure is considered investigational,and should not be used as the sole criteria for diagnosis. Name Value Range Interpretation Code Description Data Mariposa rce(s) Supporting Document(s) ID Date Data Source [id number] 09/30/2020 12:28:00 PM EDT [facility] ([facility]) Name Value Range Interpretation Code Description Data Mariposa rce(s) Supporting Document(s) Albumin [Mass/volume] in Serum or Plasma 3.0 [facility] ([facility]) Calcium [Mass/volume] in Serum or Plasma 10.2 [facility] ([facility]) Alanine aminotransferase [Enzymatic activity/volume] in Serum or Pl asma 19 [facility] ([facility]) Carbon dioxide, total [Moles/volume] in Serum or Plasma 27 [facility] ([facility]) Chloride [Moles/volume] in Serum or Plasma 107 [facility] ([facility]) Potassium [Moles/volume] in Serum or Plasma 4.7 [facility] ([facility]) Alkaline phosphatase [Enzymatic activity/volume] in Serum or Plasma 7 7 [facility] ([facility]) Sodium 137 [facility] ([facility]) Protein [Mass/volume] in Serum or Plasma 8.3 [facility] ([facility]) Aspartate aminotransferase [Enzymatic activity/volume] in Serum or Plasma 23 [facility] ([facility]) Urea nitrogen [Mass/volume] in Serum or Plasma 28 [facility] ([facility]) Creatinine For GFR 0.90 [facility] ([facility] Glucose 98 83-110 [facility] ID Date Data Source [id number] 09/30/2020 12:28:00 PM EDT [facility] ([facility]) Name Value Range Interpretation Code Description Data Mariposa rce(s) Supporting Document(s) White Blood Count 6.2 5.0-10.0 [facility] ([facility]) Red Blood Count 3.76 4.00-5.40 [facility] ([facility]) Hemoglobin 12.5 [facility] ([facility]) Platelets 199 172-450 [facility] Hematocrit 39.0 [facility] ([facility]) ID Date Data Source [id number] 09/30/2020 12:03:00 PM EDT [facility] ([facility]) Name Value Range Interpretation Code Description Data Mariposa rce(s) Supporting Document(s) Inr 1.04 [facility] [facility] THERAPUTIC HUMAN INR VALUES INDICATIONS NORMAL RANGES PROPHYLAXIS/TREATMENT OF: VENOUS THROMBOSIS 2.0-3.0 PULMONARY EMBOLISM 2.0-3.0 PREVENTION OF SYSTEMIC EMBOLISM FROM: TISSUE HEART VALVES 2.0-3.0 ACUTE MYOCARDIAL INFARCTION 2.0-3.0 VALVULAR HEART DISEASE 2.0-3.0 ATRIAL FIBRILLATION 2.0-3.0 MECHANICAL VALVES(HIGH RISK) 2.5-3.5 RECURRENT MYOCARDIAL INFARCTION 2.5-3.5 Prothrombin Time 13.8 s 12.5-14.3 [facility] Partial Thromboplastin Time 30.6 s 24.2-38.5 [facility] ([facility]) ID Date Data Source [id number] 09/30/2020 10:38:00 AM EDT [facility] ([facility]) Name Value Range Interpretation Code Description Data Mariposa rce(s) Supporting Document(s) Blood Urea Nitrogen 28 mg/dL 7-18 [facility] ([facility]) Glucose, Fasting 98 mg/dL 70-100 [facility] ([facility]) Creatinine For GFR 0.90 mg/dL 0.55-1.30 [facility] ([facility]) Sodium Level 137 meq/L 136-145 [facility] ([facility]) Glomerular Filtration Rate Laboratory test result [facility] ([facility]) <content>Units are mL/min/1.73 m2</content>
<content></content>
<content>Chronic Kidney Disease Staging per NKF:</content>
<content></content>
<content>Stage I & II GFR >=60 Normal to Mildly Decreased</content>
<content>Stage III GFR 30- 59 Moderately Decreased</content>
<content>Stage IV GFR 15-29 Severely Decreased</content>
<content>Stage V GFR <15 Very Little GFR Left</content>
<content>ESRD GFR <15 on ENERGY SPECIALIST</content>
<content></content> Potassium Serum 4.7 meq/L 3.5-5.1 [facility] ([facility]) Anion Gap 3 meq/L 8-16 [facility] ([facility]) Carbon Dioxide Level 27 meq/L 21-32 [facility] ([facility]) Chloride Level 107 meq/L 98-107 [facility] ([facility]) Ast/Sgot 23 U/L 7-37 [facility] ([facility]) Calcium Level 10.2 mg/dL 8.8-10.2 [facility] ([facility]) Bilirubin,Total 0.5 mg/dL 0.2-1.0 [facility] ([facility]) Alkaline Phosphatase 77 U/L 45-117 [facility] ([facility]) Alt/SGPT 19 U/L 12-78 [facility] ([facility]) Albumin 3.0 GM/DL 3.2-5.2 [facility] Total Protein 8.3 GM/DL 6.4-8.2 [facility] ([facility]) Albumin/Globulin Ratio 0.6 1.2-2.2 [facility]) ID Date Data Source [id number] 09/30/2020 10:38:00 AM EDT [facility] Name Value Range Interpretation Code Description Data Mariposa rce(s) Supporting Document(s) White Blood Count 6.2 10 4.0-10.0 [facility] ([facility]) Red Blood Count 3.76 10 4.00-5.40 [facility] ([facility]) Mean Corpuscular Volume 103.7 fl 80.0-96.0 [facility] ([facility]) Hemoglobin 12.5 g/dL 12.0-15.5 [facility] ([place] [facility]) Hematocrit 39.0 % 36.0-47.0 [facility] [facility] Mean Corpuscular Hemoglobin 33.2 pg 27.0-33.0 ME [facility] ([facility]) Mean Corpuscular HGB Conc 32.1 g/dL 32.0-36.5 MEDE NT ([facility]) Red Cell Distribution Width 12.9 % 11.5-14.5 [facility] ([facility]) Neutrophils % 74.5 % 36.0-66.0 [facility] ([facility]) Lymph % 16.4 % 24.0-44.0 [facility] ([place] [facility]) Platelet Count, Automated 199 10 150-450 MEDE NT ([facility]) Norton % 7.0 % 2.0-8.0 [facility] ([place] [facility]) Eos % 1.1 % 0.0-3.0 [facility] ([place] [facility]) Nucleated Red Blood Cell % 0.0 % 0-0 MED E[facility] ([facility]) Immature Granulocyte % 0.5 % 0-3.0 [facility] ([facility]) Baso % 0.5 % 0.0-1.0 [facility] ([place] [facility]) Neutrophils # 4.6 10 1.5-8.5 [facility] ([facility]) Norton # 0.4 10 0.0-0.8 [facility] ([place] [facility]) Lymph # 1.0 10 1.5-5.0 [facility] [facility]) Eos # 0.1 10 0.0-0.5 [facility] ([place] [facility]) Baso # 0.0 10 0.0-0.2 [facility] ([place] [facility]) ID Date Data Source [id number] 09/22/2020 02:06:00 PM EDT [facility] ([facility]) Name Value Range Interpretation Code Description Data Mariposa rce(s) Supporting Document(s) Thyrotropin [Units/volume] in Serum or Plasma by Detec tion limit <= 0.05 mIU/L 0.19 uIU/mL 0.36-3.74 [facility] ([facility] ) ID Date Data Source [id number] 09/22/2020 02:06:00 PM EDT [facility] ([facility]) Name Value Range Interpretation Code Description Data Mariposa rce(s) Supporting Document(s) Glucose [Mass/volume] in Serum or Plasma 100 mg/dL 74-99 [facility] ([facility]) 100-125 mg/dL PRE-DIABETES/FASTING >126 mg/dL DIABETES/FASTING Urea nitrogen [Mass/volume] in Serum or Plasma 18 mg/dL 7-18 [facility] ([facility]) Sodium [Moles/volume] in Serum or Plasma 141 meq/L 136-145 [facility] ([facility]) Creatinine 0.8 mg/dL 0.6-1.3 [facility] Carbon dioxide, total [Moles/volume] in Serum or Plasma 29 meq/L 21 -32 [facility] ([facility]) Potassium [Moles/volume] in Serum or Plasma 3.8 meq/L 3.5-5.1 [facility] ([facility]) Chloride [Moles/volume] in Serum or Plasma 104 meq/L 98-107 [facility] ([facility]) Glomerular filtration rate/1.73 sq M pre dicted among non-blacks [Volume Rate/Area] in Serum or Plasma by Creatinine-based formula (MDRD) Laboratory test result [facility] ([facility] ) Calcium [Mass/volume] in Serum or Plasma 10.8 mg/dL 8.5-10.1 [facility] ([facility]) NOTE: CALCIUM,TSH VERIFIED Glomerular filtration rate/1.73 sq M pre dicted among blacks [Volume Rate/Area] in Serum or Plasma by Creatinine-based formula (MDRD) Laboratory test result [facility] ([place] [facility] <content>CHRONIC KIDNEY DISEASE STAGING PER NKF</content>
<content></content>
<content>STAGE I & II GFR >= 60 NORMAL TO MILDLY DECREASED</content>
<content>STAGE III GFR 30-59 MODERATELY DECREASED</content>
<content>STAGE IV GFR 15-29 SEVERELY DECREASED</content>
<content>STAGE V GFR <15 VERY LITTLE GFR LEFT</content>
<content>ESRD GFR <15 ON ENERGY SPECIALIST</content>
<content></content> ID Date Data Source [id number] 09/22/2020 02:06:00 PM EDT [facility] ([facility]) Name Value Range Interpretation Code Description Data [place] rce(s) Supporting Document(s) Erythrocyte sedimentation rate by Westergren method 25 mm/hr 0-15 [facility] ([place] [facility]) ID Date Data Source [id number] 09/22/2020 02:06:00 PM EDT [facility] ([facility] Name Value Range Interpretation Code Description Data [place] rce(s) Supporting Document(s) Erythrocytes [#/volume] in Blood by Automated count 4.11 x10*6/UL 4.2 0-6.30 [facility] ([place] [facility]) Leukocytes [#/volume] in Blood by Automated count 5.9 x10*3/UL 4.1-10 .9 [facility] ([place] [facility]) Hemoglobin [Mass/volume] in Blood 13.6 g/dL 12.0-18.0 [facility] ([place] [facility]) MCV 97.4 fL 80.0-97.0 [facility] ([place] [facility]) Hematocrit [Volume Fraction] of Blood by Automated count 40.0 % 3 7.0-51.0 [facility] ([place] [facility]) MCH 33.1 pg 26.0-32.0 [facility] ([place] [facility]) Erythrocyte distribution width [Ratio] by Automated count 13.2 % 11.6-13.7 [facility] ([place] [facility]) MCHC 34.0 g/dL 31.0-38.0 [facility] ([place] [facility]) MPV 8.1 FL 7.8-11.0 [facility] ([place] [facility]) Lymph % 25.6 % 10.0-58.5 [facility] ([facility]) Platelets [#/volume] in Blood by Automated count 209 x10*3/UL 140-440 [facility] ([facility] [facility]) Mid % 7.5 % 1.7-9.3 [facility] ([place] [facility]) Lymph # 1.5 x10*3/UL 0.6-4.1 [facility] ([place] [facility]) Neut % 66.9 % 37.0-92.0 [facility] ([place] [facility]) Neut # 3.9 x10*3/UL 2.0-7.8 [facility] ([place] [facility]) Mid # 0.5 x10*3/UL 0.1-0.6 [facility] ([place] [facility]) ID Date Data Source [id number] 07/24/2020 01:37:00 PM EDT [facility] ([facility]) Name Value Range Interpretation Code Description Data [place] rce(s) Supporting Document(s) Digoxin [Mass/volume] in Serum or Plasma 0.3 ng/mL 0.5-2.0 [facility] ([place] [facility]) <content>note:<nlbl:demographic_changed> </content>
<content></content> ID Date Data Source [id number] 07/24/2020 01:37:00 PM EDT [facility] ([facility]) Name Value Range Interpretation Code Description Data [place] rce(s) Supporting Document(s) Thyrotropin [Units/volume] in Serum or Plasma by Detec tion limit <= 0.05 mIU/L 0.32 uIU/mL 0.36-3.74 [facility] ([place] [facility] ) ID Date Data Source [id number] 07/24/2020 01:37:00 PM EDT [facility] ([facility]) Name Value Range Interpretation Code Description Data [place] rce(s) Supporting Document(s) Cholesterol [Mass/volume] in Serum or Plasma 132 mg/dL 131-200 [facility] ([place] [facility]) Cholesterol in HDL [Mass/volume] in Serum or Plasma 54 mg/dL 35-60 [facility] ([place] [facility]) Cholesterol in LDL [Mass/volume] in Serum or Plasma by calcu lation 64 CALC 50-159 [facility] ([place] [facility]) Triglyceride [Mass/volume] in Serum or Plasma 72 mg/dL 30-150 [facility] ([place] [facility]) ID Date Data Source [id number] 07/24/2020 01:37:00 PM EDT [facility] ([facility]) Name Value Range Interpretation Code Description Data [place] rce(s) Supporting Document(s) Glucose [Mass/volume] in Serum or Plasma 70 mg/dL 74-99 [facility] ([place] [facility]) 100-125 mg/dL PRE-DIABETES/FASTING >126 mg/dL DIABETES/FASTING Urea nitrogen [Mass/volume] in Serum or Plasma 23 mg/dL 7-18 [facility] ([place] [facility]) Sodium [Moles/volume] in Serum or Plasma 144 meq/L 136-145 [facility] ([place] [facility]) Creatinine 0.9 mg/dL 0.6-1.3 [facility] ([facility]) Carbon dioxide, total [Moles/volume] in Serum or Plasma 32 meq/L 21 -32 [facility] ([place] [facility]) Potassium [Moles/volume] in Serum or Plasma 3.8 meq/L 3.5-5.1 [facility] ([place] [facility]) Chloride [Moles/volume] in Serum or Plasma 104 meq/L 98-107 [facility] ([place] [facility]) Glomerular filtration rate/1.73 sq M pre dicted among blacks [Volume Rate/Area] in Serum or Plasma by Creatinine-based formula (MDRD) Laboratory test result [facility] ([place] [facility]) <content>CHRONIC KIDNEY DISEASE STAGING PER NKF</content>
<content></content>
<content>STAGE I & II GFR >= 60 NORMAL TO MILDLY DECREASED</content>
<content>STAGE III GFR 30-59 MODERATELY DECREASED</content>
<content>STAGE IV GFR 15-29 SEVERELY DECREASED</content>
<content>STAGE V GFR <15 VERY LITTLE GFR LEFT</content>
<content>ESRD GFR <15 ON ENERGY SPECIALIST</content>
<content></content> Glomerular filtration rate/1.73 sq M pre dicted among non-blacks [Volume Rate/Area] in Serum or Plasma by Creatinine-based formula (MDRD) Laboratory test result [facility] ([place] [facility] ) Calcium [Mass/volume] in Serum or Plasma 10.1 mg/dL 8.5-10.1 [facility] ([place] [facility]) ID Date Data Source [id number] 07/24/2020 01:37:00 PM EDT [facility] ([facility] Name Value Range Interpretation Code Description Data [place] rce(s) Supporting Document(s) Erythrocyte sedimentation rate by Westergren method 45 mm/hr 0-15 [facility] ([place] [facility]) Magnesium 1.8 mg/dL 1.8-2.4 [facility] ([place] [facility]) ID Date Data Source [id number] 07/24/2020 01:37:00 PM EDT [facility] ([facility] Name Value Range Interpretation Code Description Data [place] rce(s) Supporting Document(s) Leukocytes [#/volume] in Blood by Automated count 8.4 x10*3/UL 4.1-10 .9 [facility] ([place] [facility]) Erythrocytes [#/volume] in Blood by Automated count 4.20 x10*6/UL 4.2 0-6.30 [facility] ([place] [facility]) Hemoglobin [Mass/volume] in Blood 14.0 g/dL 12.0-18.0 [facility] ([place] [facility]) Hematocrit [Volume Fraction] of Blood by Automated count 40.3 % 3 7.0-51.0 [facility] ([place] [facility]) MCV 95.8 fL 80.0-97.0 [facility] ([place] [facility]) MCH 33.3 pg 26.0-32.0 [facility] ([place] [facility]) Erythrocyte distribution width [Ratio] by Automated count 13.3 % 11.6-13.7 [facility] ([place] [facility]) MCHC 34.7 g/dL 31.0-38.0 [facility] ([place] [facility] Lymph % 17.5 % 10.0-58.5 [facility] [facility] Platelets [#/volume] in Blood by Automated count 207 x10*3/UL 140-440 [facility] ([place] [facility]) MPV 8.0 FL 7.8-11.0 [facility] [facility] Neut % 77.7 % 37.0-92.0 [facility] [facility] Mid % 4.8 % 1.7-9.3 [facility] ([place] [facility]) Lymph # 1.4 x10*3/UL 0.6-4.1 [facility] ([place] [facility]) Mid # 0.5 x10*3/UL 0.1-0.6 [facility] ([place] [facility]) Neut # 6.5 x10*3/UL 2.0-7.8 [facility] ([place] [facility]) ID Date Data Source [id number] 07/24/2020 01:37:00 PM EDT [facility] Name Value Range Interpretation Code Description Data [place] rce(s) Supporting Document(s) Thyrotropin [Units/volume] in Serum or Plasma by Detec tion limit <= 0.05 mIU/L 0.32 uIU/mL 0.36-3.74 [facility] ([facility] [facility]) Digoxin [Mass/volume] in Serum or Plasma 0.3 ng/mL 0.5-2.0 [facility] ([facility]) <content>note:<nlbl:demographic_changed></content>
<content></content>
< content></content> ID Date Data Source [id number] 07/24/2020 01:37:00 PM EDT [facility] ([facility]) Name Value Range Interpretation Code Description Data [place] rce(s) Supporting Document(s) Cholesterol [Mass/volume] in Serum or Plasma 132 mg/dL 131-200 [facility] ([facility]) Triglyceride [Mass/volume] in Serum or Plasma 72 mg/dL 30-150 [facility] ([facility]) Cholesterol in HDL [Mass/volume] in Serum or Plasma 54 mg/dL 35-60 [facility] ([facility]) Cholesterol in LDL [Mass/volume] in Serum or Plasma by calcu lation 64 CALC 50-159 [facility] ([facility]) ID Date Data Source [id number] 07/24/2020 01:37:00 PM EDT [facility] Name Value Range Interpretation Code Description Data [place] rce(s) Supporting Document(s) Glucose [Mass/volume] in Serum or Plasma 70 mg/dL 74-99 [facility] ([facility]) 100-125 mg/dL PRE-DIABETES/FASTING >126 mg/dL DIABETES/FASTING Urea nitrogen [Mass/volume] in Serum or Plasma 23 mg/dL 7-18 [facility] ([facility]) Creatinine 0.9 mg/dL 0.6-1.3 [facility] ([facility]) Sodium [Moles/volume] in Serum or Plasma 144 meq/L 136-145 [facility] ([facility]) Potassium [Moles/volume] in Serum or Plasma 3.8 meq/L 3.5-5.1 [facility] ([facility]) Carbon dioxide, total [Moles/volume] in Serum or Plasma 32 meq/L 21 -32 [facility] ([facility]) Chloride [Moles/volume] in Serum or Plasma 104 meq/L 98-107 [facility] ([facility]) Calcium [Mass/volume] in Serum or Plasma 10.1 mg/dL 8.5-10.1 [facility] ([facility]) Glomerular filtration rate/1.73 sq M pre dicted among non-blacks [Volume Rate/Area] in Serum or Plasma by Creatinine-based formula (MDRD) Laboratory test result [facility] ([facility]) Glomerular filtration rate/1.73 sq M pre dicted among blacks [Volume Rate/Area] in Serum or Plasma by Creatinine-based formula (MDRD) Laboratory test result [facility] ([facility]) <content>CHRONIC KIDNEY DISEASE STAGING PER NKF</content>
<content></content>
<content>STAGE I & II GFR >= 60 NORMAL TO MILDLY DECREASED</content>
<content>STAGE III GFR 30-59 MODERATELY DECREASED</content>
<content>STAGE IV GFR 15-29 SEVERELY DECREASED</content>
<content>STAGE V GFR <15 VERY LITTLE GFR LEFT</content>
<content>ESRD GFR <15 ON ENERGY SPECIALIST</content>
<content></content>
<content></content> ID Date Data Source [id number] 07/24/2020 01:37:00 PM EDT [facility] ([facility]) Name Value Range Interpretation Code Description Data [place] rce(s) Supporting Document(s) Leukocytes [#/volume] in Blood by Automated count 8.4 x10*3/UL 4.1-10 .9 [facility] ([facility]) Erythrocytes [#/volume] in Blood by Automated count 4.20 x10*6/UL 4.2 0-6.30 [facility] ([facility]) Hemoglobin [Mass/volume] in Blood 14.0 g/dL 12.0-18.0 [facility] ([facility]) Hematocrit [Volume Fraction] of Blood by Automated count 40.3 % 3 7.0-51.0 [facility] ([facility]) MCV 95.8 fL 80.0-97.0 [facility] ([facility]) MCH 33.3 pg 26.0-32.0 [facility] Erythrocyte distribution width [Ratio] by Automated count 13.3 % 11.6-13.7 [facility] ([facility]) MCHC 34.7 g/dL 31.0-38.0 [facility] Platelets [#/volume] in Blood by Automated count 207 x10*3/UL 140-440 [facility] ([facility]) Platelet mean volume [Entitic volume] in Blood by Colten 8.0 FL 7.8-11.0 [facility] ([facility]) Lymphocytes/100 leukocytes in Blood by Automated count 17.5 % 10. 0-58.5 [facility] ([facility]) Mid % 4.8 % 1.7-9.3 [facility] ([facility]) Lymph # 1.4 x10*3/UL 0.6-4.1 [facility] ([facility]) Neut % 77.7 % 37.0-92.0 [facility] ([facility]) Neutrophils [#/volume] in Semen by Manual count 6.5 x10*3/UL 2.0-7.8 [facility] ([facility]) Mid # 0.5 x10*3/UL 0.1-0.6 [facility] ([facility]) ID Date Data Source [id number] 07/16/2020 02:59:00 PM EDT [facility] ([facility]) Name Value Range Interpretation Code Description Data [place] rce(s) Supporting Document(s) Free Lambda Light Chains Serum 517.2 mg/L 5.7-26.3 [facility] ([place] [facility]) Free Mercedes Light Chains Serum 6.4 mg/L 3.3-19.4 [facility] ([place] [facility]) Mercedes/Lambda Ratio Serum 0.01 0.26-1.65 [facility] ([place] [facility]) ID Date Data Source [id number] 07/16/2020 02:59:00 PM EDT [facility] ([facility] Name Value Range Interpretation Code Description Data [place] rce(s) Supporting Document(s) Ferritin [Mass/volume] in Serum or Plasma 128 ng/mL 8-252 [facility] ([place] [facility] <content>note:<nlbl:demographic_changed> </content>
<content></content> Acil-5-Okxlmypfiwmaj [Mass/volume] in Serum or Plasma 3.7 mg/L 0.6- 2.4 [facility] ([place] [facility]) Siemens Immulite 2000 Immunochemiluminom etric assay (ICMA) . Values obtained with different assay methods or kits cannot be used interchangeably. Results cannot be interpreted as absolute evidence of the presence or absence of malignant disease. Performed at: - [facility] [id number] Nurse Transplant: Nataliya Owen MD, Phone: [phone] Performed at: [address] [id number] Nurse Transplant: Aaliyah Posadas MD, Phone: [phone] ID Date Data Source [id number] 07/16/2020 02:59:00 PM EDT [facility] ([facility]) Name Value Range Interpretation Code Description Data [place] rce(s) Supporting Document(s) Immunotyping Serum Iga Laboratory test result [facility] ([facility]) Immunotyping Serum Lambda Laboratory test result [facility] ([facility]) Laboratory test finding (navigational concept) Laboratory test result [facility] ([facility]) REV'D BY Delbert WERNER It Serum Interpretation Laboratory test result [facility] ([place] [facility]) MONOCLONAL IGA,LAMBDA ID Date Data Source [id number] 07/16/2020 02:59:00 PM EDT [facility] ([facility]) Name Value Range Interpretation Code Description Data [place] rce(s) Supporting Document(s) Immunoglobulin G 510 mg/dL [id number] [facility] ([facility]) Immunoglobulin A 2640.0 mg/dL 70-400 [facility] ([facility]) Immunoglobulin M Laboratory test result 40-230 [facility] ([facility] [facility]) ID Date Data Source [id number] 07/16/2020 02:59:00 PM EDT [facility] ([facility]) Name Value Range Interpretation Code Description Data [place] rce(s) Supporting Document(s) Iron (Fe) 131 ug/dL 50-170 [facility] ([place] [facility]) Total Iron Binding Capacity 305 ug/dL 250-450 [place] [facility] ([place] [facility]) Percent Saturation 43.0 % 13.2-45.0 [facility] ([facility]) ID Date Data Source [id number] 07/16/2020 02:59:00 PM EDT [facility] ([facility]) Name Value Range Interpretation Code Description Data [place] rce(s) Supporting Document(s) Glucose, Fasting 97 mg/dL 70-100 [facility] ([facility]) Blood Urea Nitrogen 24 mg/dL 7-18 [facility] ([facility]) Creatinine For GFR 0.85 mg/dL 0.55-1.30 [facility] ([facility]) Glomerular Filtration Rate Laboratory test result [facility] ([place]) <content>Units are mL/min/1.73 m2</content>
<content></content>
<content>Chronic Kidney Disease Staging per NKF:</content>
<content></content>
<content>Stage I & II GFR >=60 Normal to Mildly Decreased</content>
<content>Stage III GFR 30- 59 Moderately Decreased</content>
<content>Stage IV GFR 15-29 Severely Decreased</content>
<content>Stage V GFR <15 Very Little GFR Left</content>
<content>ESRD GFR <15 on ENERGY SPECIALIST</content>
<content></content> Sodium Level 139 meq/L 136-145 [facility] ([facility]) Carbon Dioxide Level 26 meq/L 21-32 [facility] ([facility]) Potassium Serum 4.6 meq/L 3.5-5.1 [facility] ([facility]) Chloride Level 106 meq/L 98-107 [facility] ([facility]) Calcium Level 11.8 mg/dL 8.8-10.2 [facility] ([facility]) Anion Gap 7 meq/L 8-16 [facility] ([place] [facility]) Alt/SGPT 44 U/L 12-78 [facility] ([place] [facility]) Alkaline Phosphatase 116 U/L 45-117 [facility] ([facility]) Ast/Sgot 33 U/L 7-37 [facility] ([place] [facility]) Bilirubin,Total 0.6 mg/dL 0.2-1.0 [facility] ([facility]) Total Protein 8.9 GM/DL 6.4-8.2 [facility] ([facility]) Albumin 3.2 GM/DL 3.2-5.2 [facility] ([place] [facility]) Albumin/Globulin Ratio 0.6 1.2-2.2 [facility] ([place] [facility]) ID Date Data Source [id number] 07/16/2020 02:59:00 PM EDT [facility] ([facility]) Name Value Range Interpretation Code Description Data [place] rce(s) Supporting Document(s) Erythrocyte sedimentation rate by Westergren method 68 mm/hr 0-30 [facility] ([place] [facility]) ID Date Data Source [id number] 07/16/2020 02:59:00 PM EDT [facility] ([facility]) Name Value Range Interpretation Code Description Data [place] rce(s) Supporting Document(s) White Blood Count 7.6 10 4.0-10.0 [facility] ([facility]) Red Blood Count 4.29 10 4.00-5.40 [facility] ([facility]) Hemoglobin 13.9 g/dL 12.0-15.5 [facility] ([place] [facility]) Hematocrit 43.3 % 36.0-47.0 [facility] ([place] [facility]) Mean Corpuscular Hemoglobin 32.4 pg 27.0-33.0 [place] [facility] ([place] [facility]) Mean Corpuscular HGB Conc 32.1 g/dL 32.0-36.5 [facility] ([place] [facility]) Mean Corpuscular Volume 100.9 fl 80.0-96.0 [facility] ([place] [facility]) Red Cell Distribution Width 13.1 % 11.5-14.5 [place] [facility] ([place] [facility]) Platelet Count, Automated 175 10 150-450 [facility] ([place] [facility]) Neutrophils % 73.1 % 36.0-66.0 [facility] ([facility]) Lymph % 18.1 % 24.0-44.0 [facility] ([place] [facility]) Eos % 1.3 % 0.0-3.0 [facility] ([place] [facility]) Norton % 6.8 % 2.0-8.0 [facility] ([place] [facility]) Baso % 0.3 % 0.0-1.0 [facility] ([place] [facility]) Immature Granulocyte % 0.4 % 0-3.0 [facility] ([facility] [facility]) Nucleated Red Blood Cell % 0.0 % 0-0 MED [facility] ([place] [facility]) Neutrophils # 5.6 10 1.5-8.5 [facility] ([facility]) Lymph # 1.4 10 1.5-5.0 [facility] ([place] [facility]) Norton # 0.5 10 0.0-0.8 [facility] ([place] [facility]) Eos # 0.1 10 0.0-0.5 [facility] ([place] [facility]) Baso # 0.0 10 0.0-0.2 [facility] ([place] [facility]) ID Date Data Source [id number] 07/16/2020 02:59:00 PM EDT [facility] ([facility]) Name Value Range Interpretation Code Description Data [place] rce(s) Supporting Document(s) Appearance, Urine Laboratory test result [facility] ([place] [facility] PH,Urine 5.0 units 5.0-9.0 [facility] ([place] [facility]) Color, Urine Laboratory test result [facility] NT ([facility] [facility]) Protein, Urine Auto Laboratory test result [facility] ([place] [facility] Specific [place] Urine Auto 1.028 1.002-1.035 [facility] ([place] [facility] Ketone, Urine Auto Laboratory test result [facility] ([place] [facility] Glucose, Urine (Ua) Auto Laboratory test result [facility] ([place] [facility] Urobilinogen, Urine Auto 4.0 mg/dL 0.0-2.0 [facility] ([place] [facility]) Leukocyte Esterase, Urine Auto Laboratory test result [facility] ([place] [facility]) Nitrite, Urine Auto Laboratory test result [facility] ([place] [facility]) Bilirubin, Urine Auto Laboratory test result [facility] ([place] [facility]) Blood, Urine Blood Laboratory test result [facility] ([place] [facility] WBC, Urine Auto 2 /HPF 0-3 [facility] ([facility]) Squamous Epithelial Cell Ur AU 0 /HPF 0-6 [facility] ([place] [facility]) RBC, Urine Auto 2 /HPF 0-3 [facility] ([facility]) Bacteria, Urine Auto Laboratory test result [facility] ([place] [facility]) Mucus, Urine Laboratory test result [facility] NT ([place] [facility]) Hyaline Cast, Urine Auto 0 /LPF 0-1 [facility] T ([place] [facility]) ID Date Data Source [id number] 06/19/2020 02:43:00 PM EDT [facility] ([facility]) Name Value Range Interpretation Code Description Data [place] rce(s) Supporting Document(s) 3D Bi-Lateral Mammogram Laboratory test result [facility] ([facility] [facility]) Dexa/Bone Density Laboratory test result [facility] ([facility] [facility]) ID Date Data Source [id number] 06/17/2020 02:26:00 PM EDT [facility] ([facility]) Name Value Range Interpretation Code Description Data [place] rce(s) Supporting Document(s) Albumin % 41.3 % 55.8-66.1 [facility] ([place] [facility]) Htyac-2-Recoydja % 3.8 % 2.9-4.9 [facility] ([facility]) Gzlpn-7-Jzwjzznkn % 8.9 % 7.1-11.8 [facility] ([facility] [facility] Kozr-8-Ifieadvmv % 5.8 % 4.7-7.2 [facility] ([facility] Knni-2-Fkhmhoiqh % 35.2 % 3.2-6.5 [facility] ([facility]) Gamma Globulin % 5.0 % 11.1-18.8 [facility] ([facility]) Albumin 3.39 GM/DL 3.29-5.55 [facility] ([place] [facility]) Cwsok-0-Shgzoelyg 0.31 GM/DL 0.17-0.41 [facility] ([facility]) Vlugf-9-Hmvddsfst 0.73 GM/DL 0.42-0.99 [facility] ([facility]) Bvtb-4-Zicylmofb 0.48 GM/DL 0.28-0.60 [facility] ([facility]) Jmwy-4-Zglvrkpee 2.89 GM/DL 0.19-0.55 [facility] ([facility]) Total Protein 8.2 GM/DL 6.4-8.2 [facility] ([facility]) Gamma Globulins 0.41 GM/DL 0.65-1.58 [facility] ([facility]) Spep Interpretation Laboratory test result [facility] ([place] [facility]) M-SPIKE NOTED IN BETA 2 REGION. CONCENTRATION = 2.85 GM/DL SUGGEST SERUM AND URINE IMMUNOTYPING. Laboratory test finding (navigational concept) Laboratory test result [facility] ([place] [facility]) REV'D BY O DEBBI ID Date Data Source [id number] 06/17/2020 02:26:00 PM EDT [facility] ([facility] Name Value Range Interpretation Code Description Data [place] rce(s) Supporting Document(s) Immunotyping Serum Iga Laboratory test result [facility] ([facility] [place]) Immunotyping Serum Lambda Laboratory test result [facility] ([facility] [place]) It Serum Interpretation Laboratory test result [facility] [facility] MONOCLONAL IGA LAMBDA Laboratory test finding (navigational concept) Laboratory test result [facility] ([place] [facility] ID Date Data Source [id number] 06/17/2020 02:25:00 PM EDT [facility] ([facility] Name Value Range Interpretation Code Description Data [place] rce(s) Supporting Document(s) Glucose [Mass/volume] in Serum or Plasma 124 mg/dL 74-99 [facility] ([facility] [facility]) 100-125 mg/dL PRE-DIABETES/FASTING >126 mg/dL DIABETES/FASTING Urea nitrogen [Mass/volume] in Serum or Plasma 19 mg/dL 7-18 [facility] ([facility] [place] [facility]) Creatinine 0.7 mg/dL 0.6-1.3 [facility] ([place] [facility]) Sodium [Moles/volume] in Serum or Plasma 143 meq/L 136-145 [facility] ([place] [facility]) Chloride [Moles/volume] in Serum or Plasma 103 meq/L 98-107 [facility] ([place] [facility]) Potassium [Moles/volume] in Serum or Plasma 3.8 meq/L 3.5-5.1 [facility] ([place] [facility]) Carbon dioxide, total [Moles/volume] in Serum or Plasma 29 meq/L 21 -32 [facility] ([place] [facility]) Calcium [Mass/volume] in Serum or Plasma 10.2 mg/dL 8.5-10.1 [facility] ([place] [facility]) NOTE: RESULT VERIFIED. Glomerular filtration rate/1.73 sq M pre dicted among non-blacks [Volume Rate/Area] in Serum or Plasma by Creatinine-based formula (MDRD) Laboratory test result [facility] ([place] [facility] ) Glomerular filtration rate/1.73 sq M pre dicted among blacks [Volume Rate/Area] in Serum or Plasma by Creatinine-based formula (MDRD) Laboratory test result [facility] ([place] [facility]) <content>CHRONIC KIDNEY DISEASE STAGING PER NKF</content>
<content></content>
<content>STAGE I & II GFR >= 60 NORMAL TO MILDLY DECREASED</content>
<content>STAGE III GFR 30-59 MODERATELY DECREASED</content>
<content>STAGE IV GFR 15-29 SEVERELY DECREASED</content>
<content>STAGE V GFR <15 VERY LITTLE GFR LEFT</content>
<content>ESRD GFR <15 ON ENERGY SPECIALIST</content>
<content></content> ID Date Data Source [id number] 05/26/2020 11:17:00 AM EST [facility] ([facility]) Name Value Range Interpretation Code Description Data [place] rce(s) Supporting Document(s) Erythrocyte sedimentation rate by Westergren method 108 mm/hr 0-30 [facility] ([place] [facility]) ID Date Data Source [id number] 05/26/2020 11:17:00 AM EST [facility] ([facility]) Name Value Range Interpretation Code Description Data [place] rce(s) Supporting Document(s) White Blood Count 4.3 10 4.0-10.0 [facility] ([facility]) Hematocrit 39.3 % 36.0-47.0 [facility]) Hemoglobin 12.4 g/dL 12.0-15.5 [facility] ([facility]) Red Blood Count 3.96 10 4.00-5.40 [facility] ([facility]) Mean Corpuscular Hemoglobin 31.3 pg 27.0-33.0 [facility] ([place] [facility]) Mean Corpuscular Volume 99.2 fl 80.0-96.0 [facility] ([place] [facility]) Mean Corpuscular HGB Conc 31.6 g/dL 32.0-36.5 [facility] ([place] [facility]) Red Cell Distribution Width 13.2 % 11.5-14.5 [facility] ([place] [facility]) Platelet Count, Automated 193 10 150-450 [facility] ([place] [facility]) Neutrophils % 62.7 % 36.0-66.0 [facility] ([facility]) Norton % 7.4 % 2.0-8.0 [facility] ([place] [facility]) Lymph % 27.8 % 24.0-44.0 [facility] [facility] Baso % 0.5 % 0.0-1.0 [facility] ([place] [facility]) Eos % 1.4 % 0.0-3.0 [facility] [facility] Neutrophils # 2.7 10 1.5-8.5 [facility] ([facility]) Nucleated Red Blood Cell % 0.0 % 0-0 [facility] ([place] [facility]) Immature Granulocyte % 0.2 % 0-3.0 [facility] ([facility] [facility]) Norton # 0.3 10 0.0-0.8 [facility] ([place] [facility]) Lymph # 1.2 10 1.5-5.0 [facility] ([place] [facility] Baso # 0.0 10 0.0-0.2 [facility] ([place] [facility] Eos # 0.1 10 0.0-0.5 [facility] ([place] [facility] ID Date Data Source [id number] 05/26/2020 11:17:00 AM EST [facility] ([facility]) Name Value Range Interpretation Code Description Data [place] rce(s) Supporting Document(s) C reactive protein [Mass/volume] in Serum or Plasma by High sensitivity method 0.52 mg/dL 0.00-0.30 [facility] ([place] [facility] ) ID Date Data Source [id number] 05/26/2020 11:17:00 AM EST [facility] ([facility]) Name Value Range Interpretation Code Description Data [place] rce(s) Supporting Document(s) Glucose, Fasting 99 mg/dL 70-100 [facility] ([facility]) Creatinine For GFR 0.92 mg/dL 0.55-1.30 [facility] ([facility]) Blood Urea Nitrogen 29 mg/dL 7-18 [facility] ([facility]) Sodium Level 139 meq/L 136-145 [facility] ([place] [facility]) Glomerular Filtration Rate Laboratory test result [facility] ([place] [facility]) <content>Units are mL/min/1.73 m2</content>
<content></content>
<content>Chronic Kidney Disease Staging per NKF:</content>
<content></content>
<content>Stage I & II GFR >=60 Normal to Mildly Decreased</content>
<content>Stage III GFR 30- 59 Moderately Decreased</content>
<content>Stage IV GFR 15-29 Severely Decreased</content>
<content>Stage V GFR <15 Very Little GFR Left</content>
<content>ESRD GFR <15 on ENERGY SPECIALIST</content>
<content></content> Potassium Serum 4.9 meq/L 3.5-5.1 [facility] ([facility]) Chloride Level 105 meq/L 98-107 [facility] ([facility]) Carbon Dioxide Level 26 meq/L 21-32 [facility] ([facility]) Anion Gap 8 meq/L 8-16 [facility] ([place] [facility]) Calcium Level 10.8 mg/dL 8.8-10.2 [facility] ([facility]) ID Date Data Source [id number] 05/26/2020 11:17:00 AM EST [facility] ([facility]) Name Value Range Interpretation Code Description Data [place] rce(s) Supporting Document(s) aPTT in Blood by Coagulation assay 35.2 s 24.2-38.5 [facility] ([place] [facility]) ID Date Data Source [id number] 05/26/2020 11:17:00 AM EST [facility] ([facility]) Name Value Range Interpretation Code Description Data [place] rce(s) Supporting Document(s) Inr 1.05 [facility] ([place] [facility] THERAPUTIC HUMAN INR VALUES INDICATIONS NORMAL RANGES PROPHYLAXIS/TREATMENT OF: VENOUS THROMBOSIS 2.0-3.0 PULMONARY EMBOLISM 2.0-3.0 PREVENTION OF SYSTEMIC EMBOLISM FROM: TISSUE HEART VALVES 2.0-3.0 ACUTE MYOCARDIAL INFARCTION 2.0-3.0 VALVULAR HEART DISEASE 2.0-3.0 ATRIAL FIBRILLATION 2.0-3.0 MECHANICAL VALVES(HIGH RISK) 2.5-3.5 RECURRENT MYOCARDIAL INFARCTION 2.5-3.5 Prothrombin Time 13.9 s 12.5-14.3 [facility] ([facility]) ID Date Data Source [id number] 05/05/2020 01:39:00 PM EST [facility] ([facility]) Name Value Range Interpretation Code Description Data [place] rce(s) Supporting Document(s) Parathyrin.intact [Mass/volume] in Serum or Plasma 26.3 pg/mL 18.5-88 .0 [facility] ([place] [facility]) ID Date Data Source [id number] 05/05/2020 01:39:00 PM EST [facility] ([facility]) Name Value Range Interpretation Code Description Data [place] rce(s) Supporting Document(s) Calcidiol [Mass/volume] in Serum or Plasma 32.7 24.0-80.0 [facility] ([place] [facility] This test was performed using [employer] I P Vitamin D immunoassay kit. Values obtained with different assay methods should not be used interchangeably. ID Date Data Source [id number] 05/05/2020 01:39:00 PM EST [facility] ([facility]) Name Value Range Interpretation Code Description Data [place] rce(s) Supporting Document(s) Thyrotropin [Units/volume] in Serum or Plasma by Detec tion limit <= 0.05 mIU/L 0.54 uIU/mL 0.36-3.74 [facility] ([place] [facility] ) ID Date Data Source [id number] 05/05/2020 01:39:00 PM EST [facility] ([facility]) Name Value Range Interpretation Code Description Data [place] rce(s) Supporting Document(s) Glucose [Mass/volume] in Serum or Plasma 98 mg/dL 74-99 [facility] ([place] [facility]) 100-125 mg/dL PRE-DIABETES/FASTING >126 mg/dL DIABETES/FASTING Urea nitrogen [Mass/volume] in Serum or Plasma 49 mg/dL 7-18 [facility] ([place] [facility]) NOTE: BUN,CALCIUM VERIFIED Potassium [Moles/volume] in Serum or Plasma 4.5 meq/L 3.5-5.1 [facility] ([place] [facility]) Creatinine 1.2 mg/dL 0.6-1.3 [facility] ([facility]) Sodium [Moles/volume] in Serum or Plasma 142 meq/L 136-145 [facility] ([place] [facility]) Chloride [Moles/volume] in Serum or Plasma 104 meq/L 98-107 [facility] ([place] [facility]) Carbon dioxide, total [Moles/volume] in Serum or Plasma 23 meq/L 21 -32 [facility] ([place] [facility]) Glomerular filtration rate/1.73 sq M pre dicted among non-blacks [Volume Rate/Area] in Serum or Plasma by Creatinine-based formula (MDRD) 45 mL/min [facility] ([place] [facility]) Calcium [Mass/volume] in Serum or Plasma 10.6 mg/dL 8.5-10.1 [facility] ([place] [facility]) Glomerular filtration rate/1.73 sq M pre dicted among blacks [Volume Rate/Area] in Serum or Plasma by Creatinine-based formula (MDRD) 55 mL/min [facility] ([place] [facility] <content>CHRONIC KIDNEY DISEASE STAGING PER NKF</content>
<content></content>
<content>STAGE I & II GFR >= 60 NORMAL TO MILDLY DECREASED</content>
<content>STAGE III GFR 30-59 MODERATELY DECREASED</content>
<content>STAGE IV GFR 15-29 SEVERELY DECREASED</content>
<content>STAGE V GFR <15 VERY LITTLE GFR LEFT</content>
<content>ESRD GFR <15 ON ENERGY SPECIALIST</content>
<content></content> ID Date Data Source [id number] 05/05/2020 01:39:00 PM EST [facility] ([facility]) Name Value Range Interpretation Code Description Data [place] rce(s) Supporting Document(s) Hemoglobin [Mass/volume] in Blood 13.1 g/dL 12.0-18.0 [facility] ([place] [facility]) Leukocytes [#/volume] in Blood by Automated count 5.8 x10*3/UL 4.1-10 .9 [facility] ([place] [facility]) Erythrocytes [#/volume] in Blood by Automated count 4.01 x10*6/UL 4.2 0-6.30 [facility] ([place] [facility]) Hematocrit [Volume Fraction] of Blood by Automated count 37.5 % 3 7.0-51.0 [facility] ([place] [facility]) MCV 93.4 fL 80.0-97.0 [facility] ([place] [facility]) MCH 32.6 pg 26.0-32.0 [facility] ([facility]) MCHC 34.9 g/dL 31.0-38.0 [facility] ([facility]) Platelets [#/volume] in Blood by Automated count 191 x10*3/UL 140-440 [facility] ([place] [facility]) MPV 8.6 FL 7.8-11.0 [facility] ([facility]) Erythrocyte distribution width [Ratio] by Automated count 13.8 % 11.6-13.7 [facility] ([place] [facility]) Mid % 6.7 % 1.7-9.3 [facility] ([place] [facility]) Lymph % 24.4 % 10.0-58.5 [facility] ([facility]) Mid # 0.4 x10*3/UL 0.1-0.6 [facility] ([place] [facility]) Neut % 68.9 % 37.0-92.0 [facility] ([place] [facility]) Lymph # 1.4 x10*3/UL 0.6-4.1 [facility] ([place] [facility]) Neut # 4.0 x10*3/UL 2.0-7.8 [facility] ([place] [facility]) ID Date Data Source [id number] 02/14/2020 11:57:00 AM EST [facility] ([facility]) Name Value Range Interpretation Code Description Data [place] rce(s) Supporting Document(s) Inr 6.49 Above upper panic limits [facility] T ([place] [facility] THERAPUTIC HUMAN INR VALUES INDICATIONS NORMAL RANGES PROPHYLAXIS/TREATMENT OF: VENOUS THROMBOSIS 2.0-3.0 PULMONARY EMBOLISM 2.0-3.0 PREVENTION OF SYSTEMIC EMBOLISM FROM: TISSUE HEART VALVES 2.0-3.0 ACUTE MYOCARDIAL INFARCTION 2.0-3.0 VALVULAR HEART DISEASE 2.0-3.0 ATRIAL FIBRILLATION 2.0-3.0 MECHANICAL VALVES(HIGH RISK) 2.5-3.5 RECURRENT MYOCARDIAL INFARCTION 2.5-3.5 Prothrombin Time 58.4 s 12.5-14.3 [facility] ([facility]) ID Date Data Source [id number] 02/14/2020 11:56:00 AM EST [facility] ([facility]) Name Value Range Interpretation Code Description Data [place] rce(s) Supporting Document(s) Leukocytes [#/volume] in Blood by Automated count 6.0 x10*3/UL 4.1-10 .9 [facility] ([place] [facility]) Hemoglobin [Mass/volume] in Blood 13.0 g/dL 12.0-18.0 [facility] ([place] [facility]) Erythrocytes [#/volume] in Blood by Automated count 4.11 x10*6/UL 4.2 0-6.30 [facility] ([place] [facility]) MCV 91.1 fL 80.0-97.0 [facility] ([place] [facility]) Hematocrit [Volume Fraction] of Blood by Automated count 37.5 % 3 7.0-51.0 [facility] ([place] [facility]) MCH 31.6 pg 26.0-32.0 [facility] ([place] [facility]) MCHC 34.7 g/dL 31.0-38.0 [facility] ([facility]) Erythrocyte distribution width [Ratio] by Automated count 14.2 % 11.6-13.7 [facility] ([place] [facility]) Platelets [#/volume] in Blood by Automated count 243 x10*3/UL 140-440 [facility] ([place] [facility]) MPV 8.3 FL 7.8-11.0 [facility] ([place] [facility]) Lymph % 21.2 % 10.0-58.5 [facility] ([place] [facility]) Mid % 5.8 % 1.7-9.3 [facility] ([place] [facility]) Lymph # 1.2 x10*3/UL 0.6-4.1 [facility] ([place] [facility]) Neut % 73.0 % 37.0-92.0 [facility] ([place] [facility]) Neut # 4.4 x10*3/UL 2.0-7.8 [facility] ([place] [facility]) Mid # 0.4 x10*3/UL 0.1-0.6 [facility] ([place] [facility]) ID Date Data Source [id number] 02/14/2020 11:29:00 AM EST [facility] ([facility]) Name Value Range Interpretation Code Description Data [place] rce(s) Supporting Document(s) INR in Platelet poor plasma by Coagulation assay 7.9 [facility] ([place] [facility]) ID Date Data Source [id number] 02/14/2020 10:58:00 AM EST [facility] ([facility]) Name Value Range Interpretation Code Description Data [place] rce(s) Supporting Document(s) Glucose [Mass/volume] in Serum or Plasma 100 mg/dL 74-99 [facility] ([place] [facility]) 100-125 mg/dL PRE-DIABETES/FASTING >126 mg/dL DIABETES/FASTING Urea nitrogen [Mass/volume] in Serum or Plasma 17 mg/dL 7-18 [facility] ([place] [facility]) Creatinine 0.7 mg/dL 0.6-1.3 [facility] ([facility]) Sodium [Moles/volume] in Serum or Plasma 141 meq/L 136-145 [facility] ([place] [facility]) Potassium [Moles/volume] in Serum or Plasma 4.4 meq/L 3.5-5.1 [facility] ([place] [facility]) Chloride [Moles/volume] in Serum or Plasma 103 meq/L 98-107 [facility] ([place] [facility]) Carbon dioxide, total [Moles/volume] in Serum or Plasma 24 meq/L 21 -32 [facility] ([place] [facility]) Calcium [Mass/volume] in Serum or Plasma 10.2 mg/dL 8.5-10.1 [facility] [facility] NOTE: RESULT VERIFIED. Glomerular filtration rate/1.73 sq M pre dicted among non-blacks [Volume Rate/Area] in Serum or Plasma by Creatinine-based formula (MDRD) Laboratory test result [facility] ([place] [facility] Glomerular filtration rate/1.73 sq M pre dicted among blacks [Volume Rate/Area] in Serum or Plasma by Creatinine-based formula (MDRD) Laboratory test result [facility] ([facility]) <content>CHRONIC KIDNEY DISEASE STAGING PER NKF</content>
<content></content>
<content>STAGE I & II GFR >= 60 NORMAL TO MILDLY DECREASED</content>
<content>STAGE III GFR 30-59 MODERATELY DECREASED</content>
<content>STAGE IV GFR 15-29 SEVERELY DECREASED</content>
<content>STAGE V GFR <15 VERY LITTLE GFR LEFT</content>
<content>ESRD GFR <15 ON ENERGY SPECIALIST</content>
<content></content> ID Date Data Source [id number] 02/05/2020 11:20:00 AM EST [facility] Name Value Range Interpretation Code Description Data [place] rce(s) Supporting Document(s) INR in Platelet poor plasma by Coagulation assay 3.7 [facility] ID Date Data Source [id number] 01/31/2020 01:07:00 PM EDT [facility] Name Value Range Interpretation Code Description Data [place] rce(s) Supporting Document(s) INR in Platelet poor plasma by Coagulation assay 2.7 [facility] ID Date Data Source [id number] 01/31/2020 11:26:00 AM EDT [facility] Name Value Range Interpretation Code Description Data [place] rce(s) Supporting Document(s) Digoxin [Mass/volume] in Serum or Plasma 0.6 ng/mL 0.5-2.0 [facility] ([place] [facility]) ID Date Data Source [id number] 01/31/2020 11:26:00 AM EDT [facility] ([facility]) Name Value Range Interpretation Code Description Data [place] rce(s) Supporting Document(s) Digoxin [Mass/volume] in Serum or Plasma 0.6 ng/mL 0.5-2.0 [facility] ([facility]) ID Date Data Source [id number] 01/31/2020 11:25:00 AM EDT [facility] ([facility] Name Value Range Interpretation Code Description Data [place] rce(s) Supporting Document(s) Urine PH 6.5 units 5.0-9.0 [facility] ([place] [facility]) Urine Appearance Laboratory test result [facility] ([facility] [place] [facility]) Urine Color Laboratory test result [facility] ([place] [facility] Urine Leukocytes Laboratory test result [facility] ([place] [facility]) Specific gravity of Urine 1.010 1.005-1.030 [facility] ([place] [facility]) Urine Protein Laboratory test result 0-0 [facility] ([place] [facility]) Urine Blood Laboratory test result [facility] ([place] [facility]) Urine Nitrite Laboratory test result [facility] ([place] [facility]) Glucose [Presence] in Urine Laboratory test result [facility] ([place] [facility]) Urine Ketone Laboratory test result [facility] NT ([place] [facility] Urine Urobilinogen 0.2 mg/dL 0.2-1.0 [facility] ([facility]) Bilirubin.total [Mass/volume] in Serum or Plasma Laboratory test resu lt [facility] ([place] [facility]) ID Date Data Source [id number] 01/31/2020 11:25:00 AM EDT [facility] ([facility]) Name Value Range Interpretation Code Description Data [place] rce(s) Supporting Document(s) Thyrotropin [Units/volume] in Serum or Plasma by Detec tion limit <= 0.05 mIU/L 0.16 uIU/mL 0.36-3.74 [facility] ([place] [facility] ) ID Date Data Source [id number] 01/31/2020 11:25:00 AM EDT [facility] ([facility]) Name Value Range Interpretation Code Description Data [place] rce(s) Supporting Document(s) Urea nitrogen [Mass/volume] in Serum or Plasma 17 mg/dL 7-18 [facility] ([place] [facility]) Glucose [Mass/volume] in Serum or Plasma 101 mg/dL 74-99 [facility] ([place] [facility]) 100-125 mg/dL PRE-DIABETES/FASTING >126 mg/dL DIABETES/FASTING Creatinine 0.7 mg/dL 0.6-1.3 [facility] ([facility]) Sodium [Moles/volume] in Serum or Plasma 143 meq/L 136-145 [facility] ([place] [facility]) Chloride [Moles/volume] in Serum or Plasma 104 meq/L 98-107 [facility] ([place] [facility]) Potassium [Moles/volume] in Serum or Plasma 4.0 meq/L 3.5-5.1 [facility] ([place] [facility]) Carbon dioxide, total [Moles/volume] in Serum or Plasma 30 meq/L 21 -32 [facility] ([place] [facility]) Calcium [Mass/volume] in Serum or Plasma 10.7 mg/dL 8.5-10.1 [facility] ([place] [facility]) NOTE: RESULT VERIFIED. Glomerular filtration rate/1.73 sq M pre dicted among non-blacks [Volume Rate/Area] in Serum or Plasma by Creatinine-based formula (MDRD) Laboratory test result [facility] ([place] [facility] Glomerular filtration rate/1.73 sq M pre dicted among blacks [Volume Rate/Area] in Serum or Plasma by Creatinine-based formula (MDRD) Laboratory test result [facility] ([place] [facility] <content>CHRONIC KIDNEY DISEASE STAGING PER NKF</content>
<content></content>
<content>STAGE I & II GFR >= 60 NORMAL TO MILDLY DECREASED</content>
<content>STAGE III GFR 30-59 MODERATELY DECREASED</content>
<content>STAGE IV GFR 15-29 SEVERELY DECREASED</content>
<content>STAGE V GFR <15 VERY LITTLE GFR LEFT</content>
<content>ESRD GFR <15 ON ENERGY SPECIALIST</content>
<content></content> ID Date Data Source [id number] 01/31/2020 11:25:00 AM EDT [facility] ([facility]) Name Value Range Interpretation Code Description Data [place] rce(s) Supporting Document(s) Magnesium 2.1 mg/dL 1.8-2.4 [facility] ([place] [facility]) ID Date Data Source [id number] 01/31/2020 11:25:00 AM EDT [facility] ([facility]) Name Value Range Interpretation Code Description Data [place] rce(s) Supporting Document(s) Erythrocytes [#/volume] in Blood by Automated count 4.36 x10*6/UL 4.2 0-6.30 [facility] ([place] [facility]) Leukocytes [#/volume] in Blood by Automated count 6.2 x10*3/UL 4.1-10 .9 [facility] ([place] [facility]) Hemoglobin [Mass/volume] in Blood 13.8 g/dL 12.0-18.0 [facility] ([facility]) Hematocrit [Volume Fraction] of Blood by Automated count 40.7 % 3 7.0-51.0 [facility] ([facility]) MCH 31.6 pg 26.0-32.0 [facility] MCV 93.2 fL 80.0-97.0 [facility] MCHC 34.0 g/dL 31.0-38.0 [facility] Platelets [#/volume] in Blood by Automated count 236 x10*3/UL 140-440 [facility] ([facility]) Erythrocyte distribution width [Ratio] by Automated count 14.5 % 11.6-13.7 [facility] ([facility]) Lymph % 19.8 % 10.0-58.5 [facility] MPV 7.8 FL 7.8-11.0 [facility] Mid % 5.7 % 1.7-9.3 [facility] Neut % 74.5 % 37.0-92.0 [facility] Lymph # 1.2 x10*3/UL 0.6-4.1 [facility] ([facility]) Neut # 4.6 x10*3/UL 2.0-7.8 [facility] ([facility]) Mid # 0.4 x10*3/UL 0.1-0.6 [facility] ([facility]) ID Date Data Source [id number] 01/31/2020 11:25:00 AM EDT [facility] ([facility]) Name Value Range Interpretation Code Description Data Mariposa rce(s) Supporting Document(s) Leukocytes [#/volume] in Blood by Automated count 6.2 x10*3/UL 4.1-10 .9 [facility] ([facility]) Hematocrit [Volume Fraction] of Blood by Automated count 40.7 % 3 7.0-51.0 [facility] ([facility]) Erythrocytes [#/volume] in Blood by Automated count 4.36 x10*6/UL 4.2 0-6.30 [facility] ([facility]) Hemoglobin [Mass/volume] in Blood 13.8 g/dL 12.0-18.0 [facility] ([facility]) MCHC 34.0 g/dL 31.0-38.0 [facility] MCV 93.2 fL 80.0-97.0 [facility] MCH 31.6 pg 26.0-32.0 [facility] Erythrocyte distribution width [Ratio] by Automated count 14.5 % 11.6-13.7 [facility] ([facility]) Platelets [#/volume] in Blood by Automated count 236 x10*3/UL 140-440 [facility] ([facility]) Platelet mean volume [Entitic volume] in Blood by [place] 7.8 FL 7.8-11.0 [facility] ([facility]) Neut % 74.5 % 37.0-92.0 [facility] Mid % 5.7 % 1.7-9.3 [facility] Lymphocytes/100 leukocytes in Blood by Automated count 19.8 % 10. 0-58.5 [facility] ([facility]) Neutrophils [#/volume] in Semen by Manual count 4.6 x10*3/UL 2.0-7.8 [facility] ([facility]) Mid # 0.4 x10*3/UL 0.1-0.6 [facility] ([facility]) Lymph # 1.2 x10*3/UL 0.6-4.1 [facility] ([facility]) ID Date Data Source [id number] 01/31/2020 11:24:00 AM EDT [facility] ([facility]) Name Value Range Interpretation Code Description Data [place]ip[place] rce(s) Supporting Document(s) Thyroxine (T4) free [Mass/volume] in Serum or Plasma 1.33 ng/dL 0.76- 1.46 [facility] ID Date Data Source [id number] 01/28/2020 11:44:00 AM EDT [facility] ([facility]) Name Value Range Interpretation Code Description Data [place] rce(s) Supporting Document(s) INR in Platelet poor plasma by Coagulation assay 1.2 [facility] ([facility]) ID Date Data Source [id number] 01/24/2020 12:43:00 PM EDT [facility] ([facility]) Name Value Range Interpretation Code Description Data [place] rce(s) Supporting Document(s) INR in Platelet poor plasma by Coagulation assay 7.2 [facility] ID Date Data Source [id number] 01/24/2020 11:33:00 AM EDT [facility] Name Value Range Interpretation Code Description Data [place] rce(s) Supporting Document(s) Prothrombin Time 49.4 s 12.5-14.3 [facility] ([facility]) Inr 5.24 Above upper panic limits [facility] T [facility] THERAPUTIC HUMAN INR VALUES INDICATIONS NORMAL RANGES PROPHYLAXIS/TREATMENT OF: VENOUS THROMBOSIS 2.0-3.0 PULMONARY EMBOLISM 2.0-3.0 PREVENTION OF SYSTEMIC EMBOLISM FROM: TISSUE HEART VALVES 2.0-3.0 ACUTE MYOCARDIAL INFARCTION 2.0-3.0 VALVULAR HEART DISEASE 2.0-3.0 ATRIAL FIBRILLATION 2.0-3.0 MECHANICAL VALVES(HIGH RISK) 2.5-3.5 RECURRENT MYOCARDIAL INFARCTION 2.5-3.5 ID Date Data Source [id number] 01/24/2020 11:33:00 AM EDT [facility] ([facility]) Name Value Range Interpretation Code Description Data [place] rce(s) Supporting Document(s) Erythrocytes [#/volume] in Blood by Automated count 4.37 x10*6/UL 4.2 0-6.30 [facility] ([facility]) Leukocytes [#/volume] in Blood by Automated count 6.6 x10*3/UL 4.1-10 .9 [facility] ([facility]) Hemoglobin [Mass/volume] in Blood 13.7 g/dL 12.0-18.0 [facility] ([facility]) Hematocrit [Volume Fraction] of Blood by Automated count 40.2 % 3 7.0-51.0 [facility] ([facility]) MCV 91.9 fL 80.0-97.0 [facility] ([facility] [facility]) MCH 31.4 pg 26.0-32.0 [facility] ([facility]) MCHC 34.2 g/dL 31.0-38.0 [facility] ([facility]) Erythrocyte distribution width [Ratio] by Automated count 13.7 % 11.6-13.7 [facility] ([facility]) Platelets [#/volume] in Blood by Automated count 251 x10*3/UL 140-440 [facility] ([facility]) MPV 8.3 FL 7.8-11.0 [facility] ([facility] [facility]) Lymph % 16.8 % 10.0-58.5 [facility] ([facility]) Mid % 4.7 % 1.7-9.3 [facility] ([facility] [facility]) Lymph # 1.1 x10*3/UL 0.6-4.1 [facility] ([facility]) Neut % 78.5 % 37.0-92.0 [facility] ([facility] [place] [facility]) Mid # 0.3 x10*3/UL 0.1-0.6 [facility] ([facility]) Neut # 5.2 x10*3/UL 2.0-7.8 [facility] ([facility]) ID Date Data Source [id number] 01/17/2020 12:07:00 PM EDT [facility] ([facility]) Name Value Range Interpretation Code Description Data [place] rce(s) Supporting Document(s) INR in Platelet poor plasma by Coagulation assay 1.3 [facility] ([facility]) ID Date Data Source [id number] 12/14/2019 12:44:00 PM EDT [facility] ([facility]) Name Value Range Interpretation Code Description Data [place] rce(s) Supporting Document(s) INR in Platelet poor plasma by Coagulation assay 3.7 [facility] ([facility]) ID Date Data Source [id number] 12/05/2019 03:27:00 PM EDT [facility] ([facility]) Name Value Range Interpretation Code Description Data [place] rce(s) Supporting Document(s) INR in Platelet poor plasma by Coagulation assay 1.3 [facility] ([facility]) Procedure Social History Code Duration Value Status Description Data Source(s ) Smoking 01/22/2021 12:00:00 AM EDT Current Smoker completed Curre nt Smoker eCW1 ([facility]) Vital Signs ID Date Data Source [id number] Name Value Range Interpretation Code Description Data Source(s) Systolic blood pressure 122 mm[Hg] 122 mm[Hg] [facility] ([facility]) Diastolic blood pressure 76 mm[Hg] 76 mm[Hg] [facility] ([facility]) Heart rate 86 /min 86 /min [facility] ([facility]) Body height 66 [in_i] 66 [in_i] [facility] ([facility]) 5'6" Body weight 223.00 [lb_av] 223.00 [lb_av] [facility] T ([facility]) Body mass index (BMI) [Ratio] 36.0 kg/m2 36.0 k g/m2 [facility] ([facility]) Systolic blood pressure 124 mm[Hg] 124 mm[Hg] [facility] ([facility]) Diastolic blood pressure 68 mm[Hg] 68 mm[Hg] [facility] ([facility]) Heart rate 86 /min 86 /min [facility] ([facility]) Body height 66 [in_i] 66 [in_i] [facility] ([facility]) 5'6" Body weight 217.00 [lb_av] 217.00 [lb_av] [facility] T ([facility]) Body mass index (BMI) [Ratio] 35.0 kg/m2 35.0 k g/m2 [facility] ([facility]) Systolic blood pressure 114 mm[Hg] 114 mm[Hg] M EDENT ([facility]) Diastolic blood pressure 76 mm[Hg] 76 mm[Hg] [facility] ([facility]) Body height 66 [in_i] 66 [in_i] [facility] ([facility]) 5'6" Body weight 221.50 [lb_av] 221.50 [lb_av] [facility] T ([facility]) Body mass index (BMI) [Ratio] 35.7 kg/m2 35.7 k g/m2 [facility] ([facility]) [place] body weight 130 [lb_av] 130 [lb_av] [facility] ([facility]) Body weight 100.472 kg 100.472 kg [facility] ([facility]) Body surface area Derived from formula 2.09 m2 2.09 m2 [facility] ([facility]) Systolic blood pressure 136 mm[Hg] 136 mm[Hg] M EDENT ([facility]) RT Arm Diastolic blood pressure 88 mm[Hg] 88 mm[Hg] [facility] ([facility]) RT Arm Heart rate 120 /min 120 /min [facility] ([facility]) Body height 66 [in_i] 66 [in_i] [facility] ([facility]) 5'6" Body weight 223.50 [lb_av] 223.50 [lb_av] [facility] T ([facility]) Body mass index (BMI) [Ratio] 36.1 kg/m2 36.1 k g/m2 [facility] ([facility]) Body height 66 [in_i] 66 [in_i] [facility] ([facility]) 5'6" [place] body weight 130 [lb_av] 130 [lb_av] [facility] T ([facility]) Body weight 102.060 kg 102.060 kg [facility] ([facility]) Diastolic blood pressure 77 mm[Hg] 77 mm[Hg] [facility] ([facility]) Body weight 225.00 [lb_av] 225.00 [lb_av] [facility] T ([facility]) Body mass index (BMI) [Ratio] 36.3 kg/m2 36.3 k g/m2 [facility] ([facility]) Body surface area Derived from formula 2.10 m2 2.10 m2 [facility] ([facility]) Systolic blood pressure 145 mm[Hg] 145 mm[Hg] M EDENT ([facility]) Systolic blood pressure 148 mm[[facility]] 148 [facility] RT Arm Diastolic blood pressure 72 mm[Hg] 72 mm[Hg] [facility]) RT Arm Systolic blood pressure 140 mm[Hg] 140 mm[Hg] [facility]) Diastolic blood pressure 70 mm[Hg] 70 mm[Hg] [facility] ([facility]) Heart rate 80 /min 80 /min [facility] ([facility]) Body height 66 [in_i] 66 [in_i] [facility] ([facility]) 5'6" Body weight 219.00 [lb_av] 219.00 [lb_av] [facility] T ([facility]) Body mass index (BMI) [Ratio] 35.3 kg/m2 35.3 k g/m2 [facility] ([facility]) Body height 66 [in_i] 66 [in_i] [facility] ([facility] ) 5'6" Body weight 190.00 [lb_av] 190.00 [lb_av] [facility] T ([facility] ) Body mass index (BMI) [Ratio] 30.7 kg/m2 30.7 k g/m2 [facility] ([facility] ) Body mass index (BMI) [Ratio] 35.7 kg/m2 35.7 k g/m2 [facility] ([facility] ) Body temperature 96.1 [degF] 96.1 [degF] [facility] ([facility] ) Body height 64.5 [in_i] 64.5 [in_i] [facility] ([facility] 5'4.50" Body weight 211.50 [lb_av] 211.50 [lb_av] [facility] T ([facility] ) Systolic blood pressure 142 mm[Hg] 142 mm[Hg] M EDENT ([facility]) Body weight 222.00 [lb_av] 222.00 [lb_av] [facility] T ([facility]) Systolic blood pressure 154 mm[Hg] 154 mm[Hg] M EDENT ([facility]) RT Arm Diastolic blood pressure 78 mm[Hg] 78 mm[Hg] [facility] ([facility]) RT Arm Diastolic blood pressure 80 mm[Hg] 80 mm[Hg] [facility] ([facility]) Heart rate 96 /min 96 /min [facility] ([facility]) Body height 66 [in_i] 66 [in_i] [facility] ([facility]) 5'6" Body mass index (BMI) [Ratio] 35.8 kg/m2 35.8 k g/m2 [facility] ([facility]) Systolic blood pressure 164 mm[Hg] 164 [facility]Hg] [facility] Diastolic blood pressure 90 mm[Hg] 90 mm[Hg] [facility] ([facility], ) Body height 66 [in_i] 66 [in_i] [facility]) 5'6" Body weight 225.00 [lb_av] 225.00 [lb_av] [facility] T ([facility]) Body mass index (BMI) [Ratio] 36.3 kg/m2 36.3 k g/m2 [facility]) [place] body weight 130 [lb_av] 130 [lb_av] [facility] T ([facility]) Body weight 102.060 kg 102.060 kg [facility] ([facility]) Body surface area Derived from formula 2.10 m2 2.10 m2 [facility] ([facility], ) Body weight 220.00 [lb_av] 220.00 [lb_av] [facility] T ([facility]) Body height 65 [in_i] 65 [in_i] [facility] ([facility]) 5'5" Body mass index (BMI) [Ratio] 36.6 kg/m2 36.6 k g/m2 [facility] ([facility]) Heart rate 65 /min 65 /min [facility] ([facility]) Systolic blood pressure--sitting 136 mm[Hg] 136 mm[Hg] [facility] ([facility]) Ra, large cuff Diastolic blood pressure--sitting 84 mm[Hg] 84 mm[Hg] [facility] ([facility]) Ra, large cuff Body height 66 [in_i] 66 [in_i] [facility] ([facility] ) 5'6" Body weight 221.00 [lb_av] 221.00 [lb_av] [facility] T ([facility] ) Body mass index (BMI) [Ratio] 35.7 kg/m2 35.7 k g/m2 [facility] ([facility] ) Diastolic blood pressure 70 mm[Hg] 70 mm[Hg] [facility] ([facility]) RT Arm Heart rate 60 /min 60 /min [facility] ([facility]) Body height 66 [in_i] 66 [in_i] [facility] ([facility]) 5'6" Body mass index (BMI) [Ratio] 35.7 kg/m2 35.7 k g/m2 [facility] ([facility]) Systolic blood pressure 148 mm[Hg] 148 mm[Hg] M EDENT ([facility]) RT Arm Body weight 221.00 [lb_av] 221.00 [lb_av] [facility] T ([facility]) Body weight 226.00 [lb_av] 226.00 [lb_av] [facility] T ([facility]) Body mass index (BMI) [Ratio] 36.5 kg/m2 36.5 k g/m2 [facility] ([facility]) Systolic blood pressure 138 mm[Hg] 138 mm[Hg] M EDENT ([facility]) Diastolic blood pressure 90 mm[Hg] 90 mm[Hg] [facility] ([facility]) Body height 66 [in_i] 66 [in_i] SUMAYA ([facility]) 5'6" Body weight 226.00 [lb_av] 226.00 [lb_av] MEDGULSHAN T ([facility]) Body weight 217.00 [lb_av] 217.00 [lb_av] [facility] T ([facility]) Body weight 220.00 [lb_av] 220.00 [lb_av] [facility] T ([facility]) Body weight 216.00 [lb_av] 216.00 [lb_av] [facility] T ([facility])
--- NOTE | 2021-01-26 15:15 | REP ---
INDICATION: DYSPNEA/COUGH. COMPARISON: 02/22/2019. TECHNIQUE: Single portable AP view of the chest was performed. FINDINGS: There is stable moderate cardiomegaly. There is stable cephalization of the pulmonary vasculature with stable prominence of interstitial markings. There is no new infiltrate. The mediastinal silhouette is unchanged. IMPRESSION: No acute pulmonary disease.Stable cardiomegaly and parenchymal changes. <Electronically signed by Harish Kumari > 01/26/21 [id number]
--- OUTSIDE RECORDS SUMMARY | 2021-01-26 15:26 | CCD ---
Author Author [facility] Organization [facility] Address Unknown Phone Unavailable Care Team Providers Care Mobile Health Vehicle Operator Name Role Phone Asim Sharma MD Unavailable [...] GUIDRY Unavailable Unavailable Fish, B Jean Carlos GIUDRY Unavailable Unavailable Fish, B Jean Carlos GUIDRY [...] B Jean Carlos GUIDRY Unavailable Unavailable Fish, [facility], PA-C Unavailable Unavailabl e Fish, [facility], PA-C Unavailable Unavailabl e Fish, [facility], PA-C Unavailable Unavailabl e Fish, [facility], PA-C Unavailable Unavailabl e Fish, [facility], PA-C Unavailable Unavailabl e Fish, [facility], PA-C Unavailable Unavailabl e Fish, [facility], PA-C Unavailable Unavailabl e Fish, [facility], PA-C Unavailable Unavailabl e Fish, [facility], PA-C Unavailable Unavailabl e Fish, [facility], PA-C Unavailable Unavailabl e Fish, [facility], PA-C Unavailable Unavailabl e Fish, [facility], PA-C Unavailable Unavailabl e Fish, [facility], PA-C Unavailable Unavailabl e Fish, [facility], PA-C Unavailable Unavailabl e Fish, [facility], PA-C Unavailable Unavailabl e Fish, [facility], PA-C Unavailable Unavailabl e Fish, [facility], PA-C Unavailable Unavailabl e Fish, [facility], PA-C Unavailable Unavailabl e Fish, [facility], PA-C Unavailable Unavailabl e Fish, [facility], PA-C Unavailable Unavailabl e Fish, [facility], PA-C Unavailable Unavailabl e Fish, [facility], PA-C Unavailable Unavailabl e Fish, [facility], PA-C Unavailable Unavailabl e Fish, [facility], PA-C Unavailable Unavailabl e Fish, [facility], PA-C Unavailable Unavailabl e Fish, [facility], PA-C Unavailable Unavailabl e Fish, [facility], PA-C Unavailable Unavailabl e Fish, [facility], PA-C Unavailable Unavailabl e Fish, [facility], PA-C Unavailable Unavailabl e Fish, [facility], PA-C Unavailable Unavailabl e Fish, [facility], PA-C Unavailable Unavailabl e Fish, [facility], PA-C Unavailable Unavailabl e Fish, [facility], PA-C Unavailable Unavailabl e Fish, [facility], PA-C Unavailable Unavailabl e Fish, [facility], PA-C Unavailable Unavailabl e Fish, [facility], PA-C Unavailable Unavailabl e PICKAsim SOLARES JR, PA-C Unavailable Unavailable PICKERAL Asim DOTY PA-C Unavailable Unavailable PICKERAL Asim DOTY PA-C Unavailable Unavailable PICKERAL JRAsim PA-C Unavailable Unavailable PICKERAL Asim DOYT PA-C Unavailable Unavailable Asim KESSLER JR, PA-C [...] MD Unavailable Unavailable DarcieDavid MD Unavailable Unavailable AdrcieDavid carpio MD Unavailable Unavailable DarcieDavid MD Unavailable Unavailable DarcieDaivd MD Unavailable Unavailable DarcieDavid MD Unavailable Unavailable [...] is protected by Article 27-F of the [place] Public Health law. If you continue you may have access to information: Regarding HIV / AIDS; Provided by facilities licensed or operated by the [place] Office of Mental Health; or Provided by the [place] Office for People With Developmental Disabilities. If such information is present, then the following [place] [facility] mandated warning applies: This information has been [...] law may result in a fine or skilled nursing sentence or both. A general authorization for the release of medical or other information is NOT sufficient authorization for further disc losure. Allergies and Adverse Reactions Type Description Substance Reaction Status Data Source(s ) Drug Allergy Drug Allergy NKDA MEDENT ([facility] ) Family History Family Member Name Family Member Gender Family Member Status Date o f Status Description Data Source(s) Unknown Male Problem MEDENT ([facility]) Unknown Male Problem [facility] ([facility]) Encounters Encounter Providers Location Date Indications Data Source(s ) Unknown [address] [facility] [address] 01/22/2021 12:00:00 AM EDT eCW1 ([facility]) Outpatient Attender: DIONISIO French 1 02:20:00 PM EDT MEDENT ([facility] ) Outpatient Admitter: ABDIAS ADJAPONGReferrer: ABDIAS ADJAPONG 10/15/2020 12:00:00 AM EDT Multiple myeloma not having achieved remission [facility] Multiple myeloma not having achieved rem ission Outpatient Attender: Callie Marrufo RPA [facility] 09/29/2020 10:15:00 AM EDT MED[facility] ([facility]) Outpatient Attender: Zehra French 01:30:00 PM EDT MEDENT ([facility] ) Outpatient Attender: Callie Marrufo RPA [facility] 09/11/2020 10:45:00 AM EDT MEDENT ([facility]) Outpatient Attender: Zehra French 01:30:00 PM EDT MEDENT ([facility] ) Outpatient Attender: Jarek Sharma MD Physical Therapy 10:30:00 AM EDT MED[facility] ([facility]) Office Visit Attender: Lynette BRAY PA-C Physical Therapy 07/15/2020 01:15:00 PM EDT MED[facility] ([facility]) Outpatient Attender: Jean Carlos Mcginnis MD Physical Therapy 07/01/2020 1 2:45:00 PM EDT MED[facility] ([facility]) Outpatient Attender: Lynette BRAY PA-C Physical Therapy 06/24/2020 11:15:00 AM EDT MED[facility] ([facility]) Outpatient Attender: Zehra French 02:30:00 PM EDT MEDENT ([facility] ) Outpatient Attender: Callie Marrufo RPA [facility] 06/12/2020 09:15:00 AM EST MEDENT ([facility]) Outpatient Attender: ADAIR NGUYEN Main Office 05/27/2020 1 1:45:00 AM EST MED[facility] ([facility]) Outpatient Attender: Zehra French 12:00:00 PM EST MEDENT ([facility] ) Outpatient Attender: Zehra French 10:30:00 AM EDT MED[facility] ([facility] ) Immunizations Vaccine Date Status Description Data Source(s) Influenza, injectable, MDCK, preservative free, mima valent 01/07/2021 02:31:00 PM EDT completed [facility]) Influenza, injectable, MDCK, preservative free, mima valent 01/17/2020 12:10:00 PM EDT completed MEDENT ([facility]) Medications Medication Brand Name Start Date Product [...] 01/07/2021 12:00:00 AM EDT ORAL active MEDENT ([facility]) Administration Of Flu Vaccine 01/07/2021 12:00:00 AM EDT completed MEDENT ([facility]) Medication administered onsite 2 ML Sodium Hyaluronate 10 MG/ML Prefilled Syringe [Euflexxa ] Euflexxa 07/15/2020 12:00:00 AM EDT active MEDENT ([facility] ) atorvastatin 20 MG Oral [...] 06/18/2020 12:00:00 AM EDT activ e MEDENT ([facility]) 20 mg 06/18/2020 12:00:00 AM EDT [...] 06/17/2020 12:00:00 AM EDT ORAL active MEDENT ([facility]) Furosemide 20 MG Oral Tablet Furosemide 06/17/2020 12:00:00 AM EDT ORAL active MEDENT ([facility]) 5 mg 06/16/2020 12:00:00 AM EDT [...] ORAL active MED[facility] ([facility]) 24 HR Bupropion Hydrochloride 150 MG Extended [...] 12:00:00 AM EST ORAL a ctive MEDENT ([facility]) 24 HR Bupropion Hydrochloride 150 MG Extended Release Oral Tablet Bupropion Hydrochloride ER (XL) 05/05/2020 12:00:00 AM EST ORAL a ctive MEDENT ([facility]) 5 mg 03/15/2020 12:00:00 AM EST [...] 12:00:[address] ORAL active MEDENT ([facility]) apixaban 5 MG Oral Tablet [Eliquis] Eliquis 02/18/2020 12:00:[address] ORAL active MED[facility] ([facility]) Administration Of Flu Vaccine 01/17/2020 12:00:00 AM EDT completed [facility] ([facility]) Medication administered onsite 20 mg 11/07/2019 [...] type / Coverage type Policy ID Covered republican ID Covered republican's relationship to godwin Policy Godwin Plan Information [employer] ([facility]) [facility] Part B [id number] Family Dependent [id number] [employer] ([facility]) [facility] Part B [id number] Family Dependent [id number] [employer] [facility]) [facility] Part B [id number] Family Dependent [id number] Medicare Natl Govt Serv Medicare Primary [id number] Self [id number] Medicare Natl Govt [facility] Medicare Primary [id number] [id number] Self [id number] [place] [id number] Self [id number] Medicare [facility] Govt [facility] Medicare Primary [id number] Self [id number] MEDICARE A [id number] Self [id number] [id number] Medicare Natl Govt [facility] Medicare Primary [id number] Self [id number] Medicare Natl Govt Serv Medicare Primary [id number] [id number] Self [id number] Medicare Natl Govt Serv Medicare Primary [id number] [id number] Self [id number] [place] Primary [id number] [id number] Self [id number] Medicare [facility]l [facility] Primary [id number] [id number] Self [id number] Medicare Natl [facility] Medicare Primary [id number] [id number] Self [id number] Medicare Natl [facility] Medicare Primary [id number] [id number] Self [id number] Medicare Natl [facility] Medicare Primary [id number] [id number] Self [id number] Medicare Natl [facility] Medicare Primary [id number] Self [id number] Medicare Natl Govt Servic Medicare Primary [id number] Self [id number] Medicare Natl [facility] Medicare Primary [id number] [id number] Self [id number] [place] Primary [id number] [id number] Self [id number] FOR LIFE U [id number] Self [id number] WPS For Life Medigap Part B [id number] Family Dependent [id number] FOR LIFE [id number] SP [id number] MEDICARE C [id number] S [id number] [id number] FOR LIFE O [id number] S [id number] WPS For Life Medigap Part B [id number] Family Dependent [id number] WPS For Life Medigap Part B [id number] Family Dependent [id number] [employer]PS [employer] Life Medigap Part B [id number] Family Dependent [id number] WPS For Life Medigap Part B [id number] Family Dependent [id number] WPS For Life Medigap Part B [id number] Family Dependent [id number] WPS For Life Medigap Part B [id number] Family Dependent [id number] WPS For Life Medigap Part B [id number] Family Dependent [id number] WPS For Life Medigap Part B [id number] Family Dependent [id number] WPS For Life Medigap Part B [id number] Family Dependent [id number] MEDICARE [id number] SP [id number] A MEDICARE C [id number] S [id number] A S [employer], [facility] C [id number] S [id number] WPS For Life Medigap Part B [id number] Family Dependent [id number] MEDICARE [id number] SP [id number] [id number] WPS For Life Medigap Part B [id number] Family Dependent [id number] WPS For Life Medigap Part B [id number] Family Dependent [id number] Problems, Conditions, and Diagnoses Code Display Name Description Problem Type Effective Dates Data Source(s) C90.00 Multiple myeloma not having achieved rem ission Multiple myeloma not having achieved remission Diagnosis 10/15/2020 01:43:00 PM EDT [facility] I87.312 [id number] 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 Problem 01/22/2021 12:00:00 AM EDT eCW1 ([facility]) L97.822 [id number] Non-pressure chronic ulcer of other part of left lower leg with fat layer exposed Problem 01/22/2021 12:00:00 AM EDT eCW1 ([facility]) I27.81 Chronic cor pulmonale Chronic cor pulmonale Problem 11/24/2020 12:00:00 AM EDT MEDENT ([facility]) I65.29 Carotid artery occlusion Carotid artery occlusion Prob muriel 05/27/2020 12:00:00 AM EST MEDENT ([facility]) I82.503 Deep venous thrombosis of lower extremit y Deep venous thrombosis of lower extremity Problem 05/27/2020 12:00:00 AM EST [facility] ([facility]) E78.2 Mixed hyperlipidemia Mixed hyperlipidemia Problem 05/27/2020 12:00:00 AM EST MEDENT ([facility]) Surgeries/Procedures Procedure Description Date Indications Data Source(s) OFFICE OUTPATIENT VISIT 15 MINUTES 01/07/2021 12:00:00 AM EDT MEDENT ([facility]) ECG ROUTINE ECG W/LEAST 12 LDS W/I&R 12/05/2020 12:00: 00 AM EDT MEDENT ([facility]) OFFICE OUTPATIENT VISIT 25 MINUTES 12/05/2020 12:00:00 AM EDT MEDENT ([facility]) ECG ROUTINE ECG W/LEAST 12 LDS W/I&R 11/24/2020 12:00: 00 AM EDT MEDENT ([facility]) OFFICE OUTPATIENT VISIT 25 MINUTES 11/24/2020 12:00:00 AM EDT MEDENT ([facility]) Chronic Care Management Services Ea Addl 20 Min 2020 12:00:00 AM EDT MEDSOLITARIO ([facility]) Chronic Care MGMT 20 Mins Clinical Staff Time Per Calendar M [facility] 11/14/2020 12:00:00 AM EDT MEDENT ([facility] ) Complex Chronic Care Management SVC 1St 60 Min 021 12:00:00 AM EDT MEDSOL[facility]IO ([facility]) Complex Chronic Care MGMT Service Ea Addl 30 Min 10/28 12:00:00 AM EDT MEDENT ([facility]) OFFICE OUTPATIENT VISIT 25 MINUTES 09/29/2020 12:00:00 AM EDT MEDENT ([facility] ) Complex Chronic Care Management SVC 1St 60 Min 021 12:00:00 AM EDT MEDENT ([facility]) Complex Chronic Care MGMT Service Ea Addl 30 Min 09/26 12:00:00 AM EDT MEDENT ([facility]) OFFICE OUTPATIENT VISIT 25 MINUTES 09/22/2020 12:00:00 AM EDT MEDENT ([facility]) OFFICE OUTPATIENT VISIT 25 MINUTES 09/11/2020 12:00:00 AM EDT MEDSOLITARIO ([facility] ) Complex Chronic Care Management SVC 1St 60 Min 021 12:00:00 AM EDT MEDSOL[facility] ([facility]) Complex Chronic Care MGMT Service Ea Addl 30 Min 08/25 12:00:00 AM EDT [facility]SOL[facility] ([facility]) Complex Chronic Care Management SVC 1St 60 Min 021 12:00:00 AM EDT [facility] ([facility]) Complex Chronic Care MGMT Service Ea Addl 30 Min 07/25 12:00:00 AM EDT [facility]SOL[facility] ([facility]) OFFICE OUTPATIENT VISIT 25 MINUTES 07/24/2020 12:00:00 AM EDT [facility] ([facility]) ARTHROCENTESIS ASPIR&/INJECTION MAJOR JT/BURSA 021 12:00:00 AM [facility] RADEX SHOULDER COMPLETE MINIMUM 2 VIEWS 07/18/2020 12: 00:00 AM EDT [facility] ARTHROCENTESIS ASPIR&/INJECTION MAJOR JT/BURSA 021 12:00:00 AM EDT [facility]) Complex Chronic Care Management SVC 1St 60 Min 021 12:00:00 AM EDT [facility] ([facility]) Complex Chronic Care MGMT Service Ea Addl 30 Min 07/01 12:00:00 AM EDT MEDENT ([facility]) INJECTION 1 TENDON SHEATH/LIGAMENT APONEUROSIS 021 12:00:00 AM EDT MEDENT ([facility]) ARTHROCENTESIS ASPIR&/INJECTION MAJOR JT/BURSA 021 12:00:00 AM EDT MEDENT ([facility]) RADIOLOGIC EXAM KNEE COMPLETE 4/MORE VIEWS 06/24/2020 12:00:00 AM EDT MEDENT ([facility]) RADIOLOGIC EXAM KNEE COMPLETE 4/MORE VIEWS 06/24/2020 12:00:00 AM EDT [facility]) Mammogram 06/19/2020 12:00:00 AM EDT M EDENT ([facility]) Bone Mineral Density Test 06/19/2020 12:00:00 AM EDT MED[facility] ([facility]) Brief Emotional/Behav Assessment W/ Scoring Doc Per Standard Inst 06/17/2020 12:00:00 AM EDT MED[facility] ([facility] ) OFFICE OUTPATIENT VISIT 25 MINUTES 06/17/2020 12:00:00 AM EDT MED[facility] ([facility]) OFFICE OUTPATIENT NEW 45 MINUTES 06/12/2020 12:00:00 A M EST MEDENT ([facility] ) ECG ROUTINE ECG W/LEAST 12 LDS W/I&R 05/27/2020 12:00: 00 AM EST MED[facility] ([facility]) OFFICE OUTPATIENT VISIT 15 MINUTES 05/27/2020 12:00:00 AM EST MED[facility] ([facility]) Complex Chronic Care Management SVC 1St 60 Min 021 12:00:00 AM EST MED[facility] ([facility]) Complex Chronic Care MGMT Service Ea Addl 30 Min 05/27 12:00:00 AM EST MED[facility] ([facility]) OFFICE OUTPATIENT VISIT 25 MINUTES 05/05/2020 12:00:00 AM EST MED[facility] ([facility]) Complex Chronic Care Management SVC 1St 60 Min 020 12:00:00 AM EST MED[facility] ([facility]) Complex Chronic Care MGMT Service Ea Addl 30 Min 03/25 12:00:00 AM EST MED[facility] ([facility]) Brief Emotional/Behav Assessment W/ Scoring Doc Per Standard Inst 01/31/2020 12:00:00 AM EDT MED[facility] ([facility] ) Results ID Date Data Source [id number] 01/07/2021 02:57:00 PM EDT MED[facility] ([facility]) Name Value Range Interpretation Code Description Data Mariposa rce(s) Supporting Document(s) Bacteria identified in Wound shallow by Aerobe culture Laborator y test result MEDENT ([facility]) ID Date Data Source [id number] 10/15/2020 12:29:00 PM EDT [facility] ([facility] Name Value Range Interpretation Code Description Data Mariposa rce(s) Supporting Document(s) White Blood Count 6.8 5.0-10.0 [facility] ([facility]) Platelets 187 172-450 [facility] Red Blood Count 3.85 4.00-5.40 [facility] ([facility]) Hemoglobin 12.7 MED[facility] ([facility]) Hematocrit 39.4 [facility] ([facility]) ID Date Data Source [id number] 10/15/2020 12:21:00 PM EDT MEDENT ([facility]) Name Value Range Interpretation Code Description Data Mariposa rce(s) Supporting Document(s) White Blood Count 6.8 10 4.0-10.0 MEDENT ([facility]) Red Blood Count 3.85 10 4.00-5.40 MED[facility] ([facility]) Mean Corpuscular Volume 102.3 fl 80.0-96.0 MED[facility] ([facility]) Hemoglobin 12.7 g/dL 12.0-15.5 [facility] Hematocrit 39.4 % 36.0-47.0 [facility] Mean Corpuscular Hemoglobin 33.0 pg 27.0-33.0 NM DENT ([facility]) Mean Corpuscular HGB Conc 32.2 g/dL 32.0-36.5 MEDE NT ([facility]) Red Cell Distribution Width 12.3 % 11.5-14.5 NM DENT ([facility]) Platelet Count, Automated 187 10 150-450 MEDE NT ([facility]) Neutrophils % 72.2 % 36.0-66.0 MEDENT ([facility]) Lymph % 19.9 % 24.0-44.0 [facility]) [place] % 6.0 % 2.0-8.0 [facility]) Eos % 1.5 % 0.0-3.0 [facility]) Baso % 0.3 % 0.0-1.0 [facility]) Immature Granulocyte % 0.1 % 0-3.0 MEDENT ([facility]) Nucleated Red Blood Cell % 0.0 % 0-0 MED ENT ([facility]) Lymph # 1.4 10 1.5-5.0 [facility]) Neutrophils # 4.9 10 1.5-8.5 [facility]) [place] # 0.4 10 0.0-0.8 [facility]) Eos # 0.1 10 0.0-0.5 [facility]) Baso # 0.0 10 0.0-0.2 [facility]) ID Date Data Source [id number] 10/17/2020 05:25:00 PM EDT [facility] Hematopathology Report See Addendum Levi wName: JUAN CARLOS SMITHMRN: [id number] Number: [id number] Date: 10/15/2020 00:00Received Date: 10/16/2020 13:57Physician(s): ABDIAS WERNER MD ADJAPONG, [place] [place] [facility]s) ReceivedA: Bone Marrow, Flow Cytometry; RECEIVED [...] and TP53, and an IgH rearrangement. See [id number] of 1q and deletion of 13q are associated with progression. Spahaots15u is generally associated with an intermediate risk and 1q gain isassociated with high risk. Addendum Electronically Signed By: Brenda Jeffery M.D. 10/27/2020 11:16 ProceduresFlow Cytometry Date Ordered:10/16/2020 Status: Signed Out10/17/2020 InterpretationPERIPHERAL BLOOD: CBC performed at [facility] (10/15/20)WBC 6.8 K/uLRBC *3.85 M/uLHgb 12.7 g/dLHct 39.4 %MCV *102.3 fLMCH 33.0 pgMCHC 32.2 g/dLRDW 12.3 %Platelets 187 K/ulDifferential Count (automated):72.2 % Neutrophils 1.5 % Eosinophils 0.3 % Yyushhztq06.9 % Lymphocytes 0.1 % Atypical Lymphocytes 6.0 % Monocytes-------100.0 % A peripheral blood film is reviewed. BONE MARROW ASPIRATE:Differential Count (100 cells): 6 % Erythroid Precursors 2 % N. Myelocytes 1 % N. Metamyelocytes and Band Forms80 % Neutrophils 4 % Eosinophils 1 % Basophils 5 % Lymphocytes 1 % Plasma Cells--------100 % Morphology: Dilute sample.Lymphoid Panel: Sana Manzanares 21 1829 [id number] following markers were assayed: CD45 (gate), CD2, CD3, CD4, CD5, CD7,CD8, CD10, CD19, CD20, CD33, CD34, CD38, CD56, CD57, CD64, CD117, CD123,HLA-DR, Chamisal, and Lambda.#events: [id number]: 98%Flow Cytometry Differential (CD45/SSC)Lymphocyte [place]: 15%CD45 dim [place]: 1%Monocyte [place]: 4%Granulocyte [place]: 73%Nucleated/Erythroid [place]: 2%The lymphocyte gate showsB-cells (CD19): 14%T-cells (CD3): 75%NK-cells (CD3-/CD56+): 9%Chamisal/Lambda Ratio: 2.9CD4/CD8 Ratio: 1.8Results: (expressed as % of lymphocyte gate)T-cell Markers: CD2 = 80, CD3 = 75, CD3/CD4 = 48, CD3/CD8 = 27, CD5 = 74,CD7 = 75, CD3/57 = 8B-cell wendi ers: Chamisal = 9, Lambda = 3, CD19 = 14, CD20 = 16, CD19/10 = 1,CD19/CD5 = 3, CD38/CD20 = 15Light chain as % of B-Cells: CD19/Chamisal = 54, CD19/Lambda = 17CD19/CD5/Chamisal = 4, CD19/CD5/Lambda = 5CD19/CD10/Chamisal = 7, CD19/CD10/Lambda = 1NK cell Markers: CD56 = 12, CD57 = 13Other Markers: CD10 = 1, CD38 = 63Results: (expressed as % of CD45 dim gate)T-cell Markers: CD2 = 27, CD3 = 8, CD3/CD4 = 2, CD3/CD8 = 4, CD5 = 10, CD7= 26, CD3/57 = 2B-cell markers: Chamisal = 29, Lambda = 0, CD19 = 16, CD20 = 14, CD19/10 =12, CD19/CD5 = 3, CD38/CD20 = 11Light chain as % of B-Cells: CD19/Chamisal = 0, CD19/Lambda = 0CD19/CD10/Chamisal = 6, CD19/CD10/Lambda = 2NK cell Markers: CD56 = 16, CD57 = 13Basophil Markers: CD123 (HLA-DR-) = 19Other Markers: CD10 = 25, CD38 = 85, CD33 = 47, CD34 = 23, CD64 = 20,CD117 = 5, CD123 = 56, HLA-DR = 57Myeloma Panel for Snaa Manzanares HP21 1829 [id number] following markers were assayed: CD45 (cell gate), CD138 (plasma cellgate), CD19, CD20, CD38, CD56, cytoplasmic Chamisal, and cytoplasmic [place] mb[place].(Please note, that Cytoplasmic Chamisal and Cytoplasmic Lambda are used todetect plasma cells, while surface Chamisal and Lambda are for lymphocytes).#events: [id number]: Routinely a minimum of 500,000 events are collected in each paneltube. Due to sample cellularity and/or processing this number was notachievable for this sample.Flow Cytometry Differential:Lymphocyte [place]: 13%CD45 dim [place]: 2%Monocyte [place]: 4%Granulocyte [place]: 74%NRBC [place]: 3%CD138 Plasma Cell [place]: 0%Results: (expressed as % of lymphocyte gate)B-Cells (CD19): 14% CD19 = 14, CD20 = 14Light chain as % of B-Cells: Cytoplasmic Chamisal/ CD20 = 49, CytoplasmicLambda/CD20 = 26Results: (expressed as % of total CD138+ plasma cell gate)CD38 = 64, CD56 = 40, CD38/56 = 37, CD19 = 12, CD20 = 5Cytoplasmic Chamisal/CD138 = 0, Cytoplasmic Lambda/CD138 = 67 Results- [...] were developed and theirperformance characteristics determined by [facility] Pathology department.They have not been cleared or approved by the [place] Food and DrugAdminis tration. The FDA has determined that such clearance or approval isnot necessary. Name Value Range Interpretation Code Description Data [place]iposa rce(s) Supporting Document(s) ID Date Data Source [id number] 10/24/2020 01:04:00 PM [facility] Cytogenetics ReportName: JUAN CARLOS SMITHMRN: [id number] Number: [id number] Date: 10/15/2020 00:00Received Date: 10/16/2020 13:50Physician(s): ABDIAS WERNER MD ADJAPONG, OPOKU, MDSpecimen(s) ReceivedA: Bone Marrow - Karyo and Multiple Myel FISHClinical [id number] patient with multiple myeloma.TEST REQUESTED/PERFORMED: Chromosome analysis and fluorescence in situhybridization (FISH) DiagnosisFISH identified 11% of nuclei with gain of 1q; 11% with trisomy 5; and 10%with monosomy 13 in this plasma cell-enriched population of cells. FISHwas negative for gains or losses of chromosomes 7 and 9; deletions ye37v04.3 (IgH), and 17p13 (TP53); and an IgH [...] (1-3).Please correlate with the concurrent Hematopathology report, [id number]. References:1. Shagufta Li. 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 AtlasGenet Cytogenet Oncol Haematol. 1998;2(3):86-87.[email or web address]. Lastvisited .2. [employer]. Mature B- [...] DescriptionFluorescence in situ Hybridization (FISH)multiple myeloma FISH panel:nucish(IEJI4Eq8,CKS1Bx 3)[],(5p15.31,EGR1)x3[],(I31D928,13q34)x1[],(IgHx2)[],(T P53,D17Z1)x2[98/100] CEP 7/N1T795 (7q31):nuc danita(D7Z1,P8X889)x2[98/100] CEP 9:nuc danita(D9Z1x2)[98/100]DescriptionA plasma cell-enriched population evaluated [...] 11% 0% *CEP 7 (D7Z1) G LSI S5U300 (7q31) R 3% 100 2G2R: 98% 0% 2% CEP 9 (D9Z1) G 3%100 2% 0% 2% *LSI S34F839 (13q14.2) O LSI 13q34 G 3% 100 2O2% 1O1% 3% *LSI IgH(14q32) Y BA 3% 100 2Y: 97% 0% 3% *LSI TP53 (17p13.1) O CEP 17 (D17Z1) G 3% 100 2O2% 0% 2% Vendor: *[employer] Probes: LSI: Locus Specific Probe; CEP: [...] rce(s) Supporting Document(s) ID Date Data Source [id number] 09/30/2020 12:28:00 PM EDT [facility] ([facility]) Name Value Range Interpretation Code Description Data Mariposa rce(s) Supporting Document(s) Albumin [Mass/volume] in Serum or Plasma 3.0 [facility] ([facility]) Calcium [Mass/volume] in Serum or Plasma 10.2 [facility] ([facility]) Alanine aminotransferase [Enzymatic activity/volume] in Serum or Pl asma 19 [facility] ([facility]) Carbon dioxide, total [Moles/volume] in Serum or Plasma 27 [facility] ([facility]) Chloride [Moles/volume] in Serum or Plasma 107 [facility] ([facility]) Potassium [Moles/volume] in Serum or Plasma 4.7 [facility] ([facility]) Alkaline phosphatase [Enzymatic activity/volume] in Serum or Plasma 7 7 [facility] ([facility]) Sodium 137 [facility] ([facility]) Protein [Mass/volume] in Serum or Plasma 8.3 [facility] ([facility]) Aspartate aminotransferase [Enzymatic activity/volume] in Serum or Plasma 23 [facility] ([facility]) Urea nitrogen [Mass/volume] in Serum or Plasma 28 [facility] ([facility]) Creatinine For GFR 0.90 [facility] ([facility] Glucose 98 83-110 [facility] ID Date Data Source [id number] 09/30/2020 12:28:00 PM EDT [facility] ([facility]) Name Value Range Interpretation Code Description Data [place] rce(s) Supporting Document(s) White Blood Count 6.2 5.0-10.0 [facility] ([facility]) Red Blood Count 3.76 4.00-5.40 [facility] ([facility]) Hemoglobin 12.5 [facility] ([facility]) Platelets 199 172-450 [facility] Hematocrit 39.0 [facility] ([facility]) ID Date Data Source [id number] 09/30/2020 12:03:00 PM EDT [facility] ([facility]) Name Value Range Interpretation Code Description Data [place] rce(s) Supporting Document(s) [facility].04 [facility] THERAPUTIC HUMAN INR VALUES INDICATIONS NORMAL RANGES PROPHYLAXIS/TREATMENT OF: VENOUS THROMBOSIS 2.0-3.0 PULMONARY EMBOLISM 2.0-3.0 PREVENTION OF SYSTEMIC EMBOLISM FROM: TISSUE HEART VALVES 2.0-3.0 ACUTE MYOCARDIAL INFARCTION 2.0-3.0 VALVULAR HEART DISEASE 2.0-3.0 ATRIAL FIBRILLATION 2.0-3.0 MECHANICAL VALVES(HIGH RISK) 2.5-3.5 RECURRENT MYOCARDIAL INFARCTION 2.5-3.5 Prothrombin Time 13.8 s 12.5-14.3 [facility]) Partial Thromboplastin Time 30.6 s 24.2-38.5 [facility] ([facility]) ID Date Data Source [id number] 09/30/2020 10:38:00 AM EDT [facility] ([facility]) Name Value Range Interpretation Code Description Data Marip[place] rce(s) Supporting Document(s) Blood Urea Nitrogen 28 mg/dL 7-18 [facility] ([facility]) Glucose, Fasting 98 mg/dL 70-100 [facility] ([facility]) Creatinine For GFR 0.90 mg/dL 0.55-1.30 [facility] ([facility]) Sodium Level 137 meq/L 136-145 [facility] ([facility]) Glomerular Filtration Rate Laboratory test result [facility] ([facility]) <content>Units are mL/min/1.73 m2</content>
<content></content>
<content>Chronic Kidney Disease Staging per NKF:</content>
<content></content>
<content>Stage I & II GFR >=60 Normal to Mildly Decreased</content>
<content>Stage III GFR 30- 59 Moderately Decreased</content>
<content>Stage IV GFR 15-29 Severely Decreased</content>
<content>Stage V GFR <15 Very Little GFR Left</content>
<content>ESRD GFR <15 on CYBER SECURITY ADMINISTRATOR</content>
<content></content> Potassium Serum 4.7 meq/L 3.5-5.1 [facility] ([facility]) Anion Gap 3 meq/L 8-16 [facility] ([facility]) Carbon Dioxide Level 27 meq/L 21-32 [facility] ([facility]) Chloride Level 107 meq/L 98-107 [facility] ([facility]) Ast/Sgot 23 U/L 7-37 [facility] ([facility]) Calcium Level 10.2 mg/dL 8.8-10.2 [facility] ([facility]) Bilirubin,Total 0.5 mg/dL 0.2-1.0 [facility] ([facility]) Alkaline Phosphatase 77 U/L 45-117 [facility] ([facility]) Alt/SGPT 19 U/L 12-78 [facility] ([facility]) Albumin 3.0 GM/DL 3.2-5.2 [facility]) Total Protein 8.3 GM/DL 6.4-8.2 [facility] ([facility]) Albumin/Globulin Ratio 0.6 1.2-2.2 [facility]) ID Date Data Source [id number] 09/30/2020 10:38:00 AM EDT [facility] Name Value Range Interpretation Code Description Data [place] rce(s) Supporting Document(s) White Blood Count 6.2 10 4.0-10.0 [facility] ([facility]) Red Blood Count 3.76 10 4.00-5.40 [facility] ([facility]) Mean Corpuscular Volume 103.7 fl 80.0-96.0 [facility] ([facility]) Hemoglobin 12.5 g/dL 12.0-15.5 [facility] ([facility]) Hematocrit 39.0 % 36.0-47.0 [facility]) Mean Corpuscular Hemoglobin 33.2 pg 27.0-33.0 [facility] ([facility]) Mean Corpuscular HGB Conc 32.1 g/dL 32.0-36.5 MED[facility] NT ([facility]) Red Cell Distribution Width 12.9 % 11.5-14.5 [facility] ([facility]) Neutrophils % 74.5 % 36.0-66.0 [facility] ([facility]) Lymph % 16.4 % 24.0-44.0 [facility] ([facility]) Platelet Count, Automated 199 10 150-450 [facility] NT ([facility]) [place] % 7.0 % 2.0-8.0 [facility]) Eos % 1.1 % 0.0-3.0 [facility]) Nucleated Red Blood Cell % 0.0 % 0-0 MED ENT ([facility]) Immature Granulocyte % 0.5 % 0-3.0 [facility] ([facility]) Baso % 0.5 % 0.0-1.0 [facility]) Neutrophils # 4.6 10 1.5-8.5 [facility] ([facility]) Kittson # 0.4 10 0.0-0.8 [facility] ([facility]) Lymph # 1.0 10 1.5-5.0 [facility]) Eos # 0.1 10 0.0-0.5 [facility] ([facility]) Baso # 0.0 10 0.0-0.2 [facility] ([facility]) ID Date Data Source [id number] 09/22/2020 02:06:00 PM EDT [facility] ([facility]) Name Value Range Interpretation Code Description Data [place] rce(s) Supporting Document(s) Thyrotropin [Units/volume] in Serum or Plasma by Detec tion limit <= 0.05 mIU/L 0.19 uIU/mL 0.36-3.74 [facility] ([facility] ) ID Date Data Source [id number] 09/22/2020 02:06:00 PM EDT [facility] ([facility]) Name Value Range Interpretation Code Description Data [place] rce(s) Supporting Document(s) Glucose [Mass/volume] in Serum or Plasma 100 mg/dL 74-99 [facility] ([facility]) 100-125 mg/dL PRE-DIABETES/FASTING >126 mg/dL DIABETES/FASTING Urea nitrogen [Mass/volume] in Serum or Plasma 18 mg/dL 7-18 [facility] ([facility]) Sodium [Moles/volume] in Serum or Plasma 141 meq/L 136-145 [facility] ([facility]) Creatinine 0.8 mg/dL 0.6-1.3 [facility] Carbon dioxide, total [Moles/volume] in Serum or Plasma 29 meq/L 21 -32 [facility] ([facility]) Potassium [Moles/volume] in Serum or Plasma 3.8 meq/L 3.5-5.1 [facility] ([facility]) Chloride [Moles/volume] in Serum or Plasma 104 meq/L 98-107 [facility] ([facility]) Glomerular filtration rate/1.73 sq M pre dicted among non-blacks [Volume Rate/Area] in Serum or Plasma by Creatinine-based formula (MDRD) Laboratory test result [facility] ([facility] ) Calcium [Mass/volume] in Serum or Plasma 10.8 mg/dL 8.5-10.1 [facility] ([facility]) NOTE: CALCIUM,TSH VERIFIED Glomerular filtration rate/1.73 sq M pre dicted among blacks [Volume Rate/Area] in Serum or Plasma by Creatinine-based formula (MDRD) Laboratory test result [facility] <content>CHRONIC KIDNEY DISEASE STAGING PER NKF</content>
<content></content>
<content>STAGE I & II GFR >= 60 NORMAL TO MILDLY DECREASED</content>
<content>STAGE III GFR 30-59 MODERATELY DECREASED</content>
<content>STAGE IV GFR 15-29 SEVERELY DECREASED</content>
<content>STAGE V GFR <15 VERY LITTLE GFR LEFT</content>
<content>ESRD GFR <15 ON CYBER SECURITY ADMINISTRATOR</content>
<content></content> ID Date Data Source [id number] 09/22/2020 02:06:00 PM EDT [facility] ([facility]) Name Value Range Interpretation Code Description Data [place]ip[place] rce(s) Supporting Document(s) Erythrocyte sedimentation rate by Westergren method 25 mm/hr 0-15 [facility] ID Date Data Source [id number] 09/22/2020 02:06:00 PM EDT [facility] Name Value Range Interpretation Code Description Data [place] rce(s) Supporting Document(s) Erythrocytes [#/volume] in Blood by Automated count 4.11 x10*6/UL 4.2 0-6.30 [facility] Leukocytes [#/volume] in Blood by Automated count 5.9 x10*3/UL 4.1-10 .9 [facility] ([facility]) Hemoglobin [Mass/volume] in Blood 13.6 g/dL 12.0-18.0 [facility] ([facility]) MCV 97.4 fL 80.0-97.0 [facility]) Hematocrit [Volume Fraction] of Blood by Automated count 40.0 % 3 7.0-51.0 [facility] ([facility]) MCH 33.1 pg 26.0-32.0 [facility]) Erythrocyte distribution width [Ratio] by Automated count 13.2 % 11.6-13.7 [facility]) MCHC 34.0 g/dL 31.0-38.0 [facility] ([facility]) MPV 8.1 FL 7.8-11.0 [facility] ([facility]) Lymph % 25.6 % 10.0-58.5 [facility] ([facility]) Platelets [#/volume] in Blood by Automated count 209 x10*3/UL 140-440 [facility] ([facility]) Mid % 7.5 % 1.7-9.3 [facility] ([facility]) Lymph # 1.5 x10*3/UL 0.6-4.1 [facility] ([facility]) Neut % 66.9 % 37.0-92.0 [facility] ([facility]) Neut # 3.9 x10*3/UL 2.0-7.8 [facility] ([facility]) Mid # 0.5 x10*3/UL 0.1-0.6 [facility] ([facility]) ID Date Data Source [id number] 07/24/2020 01:37:00 PM EDT [facility] ([facility]) Name Value Range Interpretation Code Description Data [place] rce(s) Supporting Document(s) Digoxin [Mass/volume] in Serum or Plasma 0.3 ng/mL 0.5-2.0 [facility] ([facility]) <content>note:<nlbl:demographic_changed> </content>
<content></content> ID Date Data Source [id number] 07/24/2020 01:37:00 PM EDT [facility] ([facility]) Name Value Range Interpretation Code Description Data [place] rce(s) Supporting Document(s) Thyrotropin [Units/volume] in Serum or Plasma by Detec tion limit <= 0.05 mIU/L 0.32 uIU/mL 0.36-3.74 [facility] ([facility] ) ID Date Data Source [id number] 07/24/2020 01:37:00 PM EDT [facility] ([facility]) Name Value Range Interpretation Code Description Data [place] rce(s) Supporting Document(s) Cholesterol [Mass/volume] in Serum or Plasma 132 mg/dL 131-200 [facility] ([facility]) Cholesterol in HDL [Mass/volume] in Serum or Plasma 54 mg/dL 35-60 [facility] ([facility]) Cholesterol in LDL [Mass/volume] in Serum or Plasma by calcu lation 64 CALC 50-159 [facility] ([facility]) Triglyceride [Mass/volume] in Serum or Plasma 72 mg/dL 30-150 [facility] ([facility]) ID Date Data Source [id number] 07/24/2020 01:37:00 PM EDT [facility] ([facility]) Name Value Range Interpretation Code Description Data [place] rce(s) Supporting Document(s) Glucose [Mass/volume] in Serum or Plasma 70 mg/dL 74-99 [facility] ([facility]) 100-125 mg/dL PRE-DIABETES/FASTING >126 mg/dL DIABETES/FASTING Urea nitrogen [Mass/volume] in Serum or Plasma 23 mg/dL 7-18 [facility] ([facility]) Sodium [Moles/volume] in Serum or Plasma 144 meq/L 136-145 [facility] ([facility]) Creatinine 0.9 mg/dL 0.6-1.3 [facility] ([facility]) Carbon dioxide, total [Moles/volume] in Serum or Plasma 32 meq/L 21 -32 [facility] ([facility]) Potassium [Moles/volume] in Serum or Plasma 3.8 meq/L 3.5-5.1 [facility] ([facility]) Chloride [Moles/volume] in Serum or Plasma 104 meq/L 98-107 [facility] ([facility]) Glomerular filtration rate/1.73 sq M pre dicted among blacks [Volume Rate/Area] in Serum or Plasma by Creatinine-based formula (MDRD) Laboratory test result [facility] ([facility] <content>CHRONIC KIDNEY DISEASE STAGING PER NKF</content>
<content></content>
<content>STAGE I & II GFR >= 60 NORMAL TO MILDLY DECREASED</content>
<content>STAGE III GFR 30-59 MODERATELY DECREASED</content>
<content>STAGE IV GFR 15-29 SEVERELY DECREASED</content>
<content>STAGE V GFR <15 VERY LITTLE GFR LEFT</content>
<content>ESRD GFR <15 ON CYBER SECURITY ADMINISTRATOR</content>
<content></content> Glomerular filtration rate/1.73 sq M pre dicted among non-blacks [Volume Rate/Area] in Serum or Plasma by Creatinine-based formula (MDRD) Laboratory test result [facility] ([facility] Calcium [Mass/volume] in Serum or Plasma 10.1 mg/dL 8.5-10.1 [facility] ID Date Data Source [id number] 07/24/2020 01:37:00 PM EDT [facility] Name Value Range Interpretation Code Description Data [place] rce(s) Supporting Document(s) Erythrocyte sedimentation rate by Westergren method 45 mm/hr 0-15 [facility] Magnesium 1.8 mg/dL 1.8-2.4 [facility] ([facility]) ID Date Data Source [id number] 07/24/2020 01:37:00 PM EDT [facility] Name Value Range Interpretation Code Description Data [place] rce(s) Supporting Document(s) Leukocytes [#/volume] in Blood by Automated count 8.4 x10*3/UL 4.1-10 .9 [facility] ([facility] Erythrocytes [#/volume] in Blood by Automated count 4.20 x10*6/UL 4.2 0-6.30 [facility] ([facility]) Hemoglobin [Mass/volume] in Blood 14.0 g/dL 12.0-18.0 [facility]) Hematocrit [Volume Fraction] of Blood by Automated count 40.3 % 3 7.0-51.0 [facility] ([facility]) MCV 95.8 fL 80.0-97.0 [facility] ([facility]) MCH 33.3 pg 26.0-32.0 [facility] ([facility]) Erythrocyte distribution width [Ratio] by Automated count 13.3 % 11.6-13.7 [facility] ([facility]) MCHC 34.7 g/dL 31.0-38.0 [facility] Lymph % 17.5 % 10.0-58.5 [facility] Platelets [#/volume] in Blood by Automated count 207 x10*3/UL 140-440 [facility] ([facility]) MPV 8.0 FL 7.8-11.0 [facility] Neut % 77.7 % 37.0-92.0 [facility] Mid % 4.8 % 1.7-9.3 [facility] ([facility]) Lymph # 1.4 x10*3/UL 0.6-4.1 [facility] ([facility]) Mid # 0.5 x10*3/UL 0.1-0.6 [facility] ([facility]) Neut # 6.5 x10*3/UL 2.0-7.8 [facility] ([facility]) ID Date Data Source [id number] 07/24/2020 01:37:00 PM EDT [facility] ([facility] Name Value Range Interpretation Code Description Data [place] rce(s) Supporting Document(s) Thyrotropin [Units/volume] in Serum or Plasma by Detec tion limit <= 0.05 mIU/L 0.32 uIU/mL 0.36-3.74 [facility] ([facility]) Digoxin [Mass/volume] in Serum or Plasma 0.3 ng/mL 0.5-2.0 [facility] ([facility]) <content>note:<nlbl:demographic_changed></content>
<content></content>
< content></content> ID Date Data Source [id number] 07/24/2020 01:37:00 PM EDT [facility] ([facility]) Name Value Range Interpretation Code Description Data [place] rce(s) Supporting Document(s) Cholesterol [Mass/volume] in Serum or Plasma 132 mg/dL 131-200 [facility] ([facility]) Triglyceride [Mass/volume] in Serum or Plasma 72 mg/dL 30-150 [facility] ([facility]) Cholesterol in HDL [Mass/volume] in Serum or Plasma 54 mg/dL 35-60 [facility] ([facility]) Cholesterol in LDL [Mass/volume] in Serum or Plasma by calcu lation 64 CALC 50-159 [facility] ([facility]) ID Date Data Source [id number] 07/24/2020 01:37:00 PM EDT [facility] ([facility] Name Value Range Interpretation Code Description Data [place] rce(s) Supporting Document(s) Glucose [Mass/volume] in Serum or Plasma 70 mg/dL 74-99 [facility] ([facility]) 100-125 mg/dL PRE-DIABETES/FASTING >126 mg/dL DIABETES/FASTING Urea nitrogen [Mass/volume] in Serum or Plasma 23 mg/dL 7-18 [facility] ([facility]) Creatinine 0.9 mg/dL 0.6-1.3 [facility] ([facility]) Sodium [Moles/volume] in Serum or Plasma 144 meq/L 136-145 [facility] ([facility]) Potassium [Moles/volume] in Serum or Plasma 3.8 meq/L 3.5-5.1 [facility] ([facility]) Carbon dioxide, total [Moles/volume] in Serum or Plasma 32 meq/L 21 -32 [facility] ([facility]) Chloride [Moles/volume] in Serum or Plasma 104 meq/L 98-107 [facility] ([facility]) Calcium [Mass/volume] in Serum or Plasma 10.1 mg/dL 8.5-10.1 [facility] ([facility]) Glomerular filtration rate/1.73 sq M pre dicted among non-blacks [Volume Rate/Area] in Serum or Plasma by Creatinine-based formula (MDRD) Laboratory test result [facility] ([facility]) Glomerular filtration rate/1.73 sq M pre dicted among blacks [Volume Rate/Area] in Serum or Plasma by Creatinine-based formula (MDRD) Laboratory test result [facility] ([facility]) <content>CHRONIC KIDNEY DISEASE STAGING PER NKF</content>
<content></content>
<content>STAGE I & II GFR >= 60 NORMAL TO MILDLY DECREASED</content>
<content>STAGE III GFR 30-59 MODERATELY DECREASED</content>
<content>STAGE IV GFR 15-29 SEVERELY DECREASED</content>
<content>STAGE V GFR <15 VERY LITTLE GFR LEFT</content>
<content>ESRD GFR <15 ON CYBER SECURITY ADMINISTRATOR</content>
<content></content>
<content></content> ID Date Data Source [id number] 07/24/2020 01:37:00 PM EDT [facility] ([facility] Name Value Range Interpretation Code Description Data [place] rce(s) Supporting Document(s) Leukocytes [#/volume] in Blood by Automated count 8.4 x10*3/UL 4.1-10 .9 [facility] ([facility]) Erythrocytes [#/volume] in Blood by Automated count 4.20 x10*6/UL 4.2 0-6.30 [facility] ([facility]) Hemoglobin [Mass/volume] in Blood 14.0 g/dL 12.0-18.0 [facility] ([facility]) Hematocrit [Volume Fraction] of Blood by Automated count 40.3 % 3 7.0-51.0 [facility] ([facility]) MCV 95.8 fL 80.0-97.0 [facility] ([facility]) MCH 33.3 pg 26.0-32.0 [facility] Erythrocyte distribution width [Ratio] by Automated count 13.3 % 11.6-13.7 [facility] ([facility]) MCHC 34.7 g/dL 31.0-38.0 [facility] ([facility] Platelets [#/volume] in Blood by Automated count 207 x10*3/UL 140-440 [facility] ([facility]) Platelet mean volume [Entitic volume] in Blood by Colten 8.0 FL 7.8-11.0 [facility] ([facility]) Lymphocytes/100 leukocytes in Blood by Automated count 17.5 % 10. 0-58.5 [facility] ([facility]) Mid % 4.8 % 1.7-9.3 [facility] ([facility] Lymph # 1.4 x10*3/UL 0.6-4.1 [facility] ([facility]) Neut % 77.7 % 37.0-92.0 [facility] ([facility] Neutrophils [#/volume] in Semen by Manual count 6.5 x10*3/UL 2.0-7.8 [facility] ([facility]) Mid # 0.5 x10*3/UL 0.1-0.6 [facility] ([facility]) ID Date Data Source [id number] 07/16/2020 02:59:00 PM EDT [facility] ([facility]) Name Value Range Interpretation Code Description Data [place] rce(s) Supporting Document(s) Free Lambda Light Chains Serum 517.2 mg/L 5.7-26.3 [facility] ([facility]) Free Chamisal Light Chains Serum 6.4 mg/L 3.3-19.4 [facility] ([facility]) Chamisal/Lambda Ratio Serum 0.01 0.26-1.65 MED [facility] ([facility]) ID Date Data Source [id number] 07/16/2020 02:59:00 PM EDT [facility] ([facility] Name Value Range Interpretation Code Description Data [place] rce(s) Supporting Document(s) Ferritin [Mass/volume] in Serum or Plasma 128 ng/mL 8-252 [facility] <content>note:<nlbl:demographic_changed> </content>
<content></content> Sxgf-6-Kswopuqbwumay [Mass/volume] in Serum or Plasma 3.7 mg/L 0.6- 2.4 [facility] ([facility]) Siemens Immulite 2000 Immunochemiluminom etric assay (ICMA) . Values obtained with different assay methods or kits cannot be used interchangeably. Results cannot be interpreted as absolute evidence of the presence or absence of malignant disease. Performed at: - [facility] [id number] Wellness [facility] Manager: Nataliya Owen MD, Phone: [phone] Performed at: [address] [id number] [facility] Manager: Aaliyah Posadas MD, Phone: [phone] ID Date Data Source [id number] 07/16/2020 02:59:00 PM EDT [facility] ([facility]) Name Value Range Interpretation Code Description Data [place] rce(s) Supporting Document(s) Immunotyping Serum Iga Laboratory test result [facility] ([facility]) Immunotyping Serum Lambda Laboratory test result [facility] ([facility]) Laboratory test finding (navigational concept) Laboratory test result [facility] ([facility]) REV'D BY Delbert WERNER It Serum Interpretation Laboratory test result [facility]) MONOCLONAL IGA,LAMBDA ID Date Data Source [id number] 07/16/2020 02:59:00 PM EDT [facility] ([facility]) Name Value Range Interpretation Code Description Data [place] rce(s) Supporting Document(s) Immunoglobulin G 510 mg/dL [id number] [facility] ([facility]) Immunoglobulin A 2640.0 mg/dL 70-400 [facility] ([facility]) Immunoglobulin M Laboratory test result 40-230 [facility] ([facility]) ID Date Data Source [id number] 07/16/2020 02:59:00 PM EDT [facility] ([facility]) Name Value Range Interpretation Code Description Data [place] rce(s) Supporting Document(s) Iron (Fe) 131 ug/dL 50-170 [facility]) Total Iron Binding Capacity 305 ug/dL 250-450 [facility] ([facility]) Percent Saturation 43.0 % 13.2-45.0 [facility] ([facility]) ID Date Data Source [id number] 07/16/2020 02:59:00 PM EDT [facility] ([facility]) Name Value Range Interpretation Code Description Data [place] rce(s) Supporting Document(s) Glucose, Fasting 97 mg/dL 70-100 [facility] ([facility]) Blood Urea Nitrogen 24 mg/dL 7-18 [facility] ([facility]) Creatinine For GFR 0.85 mg/dL 0.55-1.30 [facility] ([facility]) Glomerular Filtration Rate Laboratory test result [facility] ([facility]) <content>Units are mL/min/1.73 m2</content>
<content></content>
<content>Chronic Kidney Disease Staging per NKF:</content>
<content></content>
<content>Stage I & II GFR >=60 Normal to Mildly Decreased</content>
<content>Stage III GFR 30- 59 Moderately Decreased</content>
<content>Stage IV GFR 15-29 Severely Decreased</content>
<content>Stage V GFR <15 Very Little GFR Left</content>
<content>ESRD GFR <15 on CYBER SECURITY ADMINISTRATOR</content>
<content></content> Sodium Level 139 meq/L 136-145 [facility] ([facility]) Carbon Dioxide Level 26 meq/L 21-32 [facility] ([facility]) Potassium Serum 4.6 meq/L 3.5-5.1 [facility] ([facility]) Chloride Level 106 meq/L 98-107 [facility] ([facility]) Calcium Level 11.8 mg/dL 8.8-10.2 [facility] ([facility]) Anion Gap 7 meq/L 8-16 [facility] ([facility] Alt/SGPT 44 U/L 12-78 [facility] ([facility]) Alkaline Phosphatase 116 U/L 45-117 [facility] ([facility]) Ast/Sgot 33 U/L 7-37 [facility] ([facility]) Bilirubin,Total 0.6 mg/dL 0.2-1.0 [facility] ([facility]) Total Protein 8.9 GM/DL 6.4-8.2 [facility] ([facility]) Albumin 3.2 GM/DL 3.2-5.2 [facility] ([facility]) Albumin/Globulin Ratio 0.6 1.2-2.2 [facility] ([facility]) ID Date Data Source [id number] 07/16/2020 02:59:00 PM EDT [facility] ([facility]) Name Value Range Interpretation Code Description Data [place] rce(s) Supporting Document(s) Erythrocyte sedimentation rate by Westergren method 68 mm/hr 0-30 [facility] ([facility]) ID Date Data Source [id number] 07/16/2020 02:59:00 PM EDT [facility] ([facility]) Name Value Range Interpretation Code Description Data [place] rce(s) Supporting Document(s) White Blood Count 7.6 10 4.0-10.0 [facility] ([facility]) Red Blood Count 4.29 10 4.00-5.40 [facility] ([facility]) Hemoglobin 13.9 g/dL 12.0-15.5 [facility] ([facility]) Hematocrit 43.3 % 36.0-47.0 [facility] ([facility]) Mean Corpuscular Hemoglobin 32.4 pg 27.0-33.0 [facility] ([facility]) Mean Corpuscular HGB Conc 32.1 g/dL 32.0-36.5 [facility] ([facility]) Mean Corpuscular Volume 100.9 fl 80.0-96.0 [facility] ([facility]) Red Cell Distribution Width 13.1 % 11.5-14.5 [facility] ([facility]) Platelet Count, Automated 175 10 150-450 [facility] ([facility]) Neutrophils % 73.1 % 36.0-66.0 [facility] ([facility]) Lymph % 18.1 % 24.0-44.0 [facility]) Eos % 1.3 % 0.0-3.0 [facility]) [place] % 6.8 % 2.0-8.0 [facility]) Baso % 0.3 % 0.0-1.0 [facility]) Immature Granulocyte % 0.4 % 0-3.0 [facility] ([facility]) Nucleated Red Blood Cell % 0.0 % 0-0 [facility] ([facility]) Neutrophils # 5.6 10 1.5-8.5 [facility] ([facility]) Lymph # 1.4 10 1.5-5.0 [facility] ([facility]) [place] # 0.5 10 0.0-0.8 [facility] ([facility]) Eos # 0.1 10 0.0-0.5 [facility] ([facility]) Baso # 0.0 10 0.0-0.2 [facility] ([facility]) ID Date Data Source [id number] 07/16/2020 02:59:00 PM EDT [facility] ([facility]) Name Value Range Interpretation Code Description Data [place] rce(s) Supporting Document(s) Appearance, Urine Laboratory test result [facility] PH,Urine 5.0 units 5.0-9.0 [facility] ([facility]) Color, Urine Laboratory test result [facility] ([facility]) Protein, Urine Auto Laboratory test result [facility] Specific [place] Urine Auto 1.028 1.002-1.035 [facility] Ketone, Urine Auto Laboratory test result [facility] Glucose, Urine (Ua) Auto Laboratory test result [facility] Urobilinogen, Urine Auto 4.0 mg/dL 0.0-2.0 [facility] Leukocyte Esterase, Urine Auto Laboratory test result [facility] ([facility]) Nitrite, Urine Auto Laboratory test result [facility] ([facility]) Bilirubin, Urine Auto Laboratory test result [facility] ([facility]) Blood, Urine Blood Laboratory test result [facility] WBC, Urine Auto 2 /HPF 0-3 [facility] ([facility]) Squamous Epithelial Cell Ur AU 0 /HPF 0-6 [facility] ([facility]) RBC, Urine Auto 2 /HPF 0-3 [facility] ([facility]) Bacteria, Urine Auto Laboratory test result [facility] ([facility]) Mucus, Urine Laboratory test result [facility] ([facility]) Hyaline Cast, Urine Auto 0 /LPF 0-1 [facility] ([facility]) ID Date Data Source [id number] 06/19/2020 02:43:00 PM EDT [facility] ([facility]) Name Value Range Interpretation Code Description Data [place] rce(s) Supporting Document(s) 3D Bi-Lateral Mammogram Laboratory test result [facility] ([facility]) Dexa/Bone Density Laboratory test result [facility] ([facility]) ID Date Data Source [id number] 06/17/2020 02:26:00 PM EDT [facility] ([facility]) Name Value Range Interpretation Code Description Data [place] rce(s) Supporting Document(s) Albumin % 41.3 % 55.8-66.1 [facility] ([facility]) Jejfb-2-Tbseltep % 3.8 % 2.9-4.9 [facility] Ohjhc-3-Gswohlbft % 8.9 % 7.1-11.8 [facility] ([facility]) Veud-2-Ojjyjinhx % 5.8 % 4.7-7.2 [facility] ([facility] Ygcu-1-Mykxphzub % 35.2 % 3.2-6.5 [facility] ([facility]) Gamma Globulin % 5.0 % 11.1-18.8 [facility] ([facility]) Albumin 3.39 GM/DL 3.29-5.55 [facility] ([facility]) Clqes-7-Pfxyhbsqy 0.31 GM/DL 0.17-0.41 [facility] ([facility] Yjevb-4-Dxzquqixe 0.73 GM/DL 0.42-0.99 [facility] ([facility] Yjux-9-Fbdhmqsbi 0.48 GM/DL 0.28-0.60 [facility] ([facility] Week-4-Sosaizsiw 2.89 GM/DL 0.19-0.55 [facility] ([facility]) Total Protein 8.2 GM/DL 6.4-8.2 [facility] ([facility]) Gamma Globulins 0.41 GM/DL 0.65-1.58 [facility] ([facility]) Spep Interpretation Laboratory test result [facility] ([facility]) M-SPIKE NOTED IN BETA 2 REGION. CONCENTRATION = 2.85 GM/DL SUGGEST SERUM AND URINE IMMUNOTYPING. Laboratory test finding (navigational concept) Laboratory test result [facility] ([facility]) REV'D BY O DEBBI ID Date Data Source [id number] 06/17/2020 02:26:00 PM EDT [facility] Name Value Range Interpretation Code Description Data [place] rce(s) Supporting Document(s) Immunotyping Serum Iga Laboratory test result [facility] ([facility]) Immunotyping Serum Lambda Laboratory test result [facility] ([facility]) It Serum Interpretation Laboratory test result [facility] MONOCLONAL IGA LAMBDA Laboratory test finding (navigational concept) Laboratory test result [facility] ID Date Data Source [id number] 06/17/2020 02:25:00 PM EDT [facility] Name Value Range Interpretation Code Description Data [place] rce(s) Supporting Document(s) Glucose [Mass/volume] in Serum or Plasma 124 mg/dL 74-99 [facility] ([facility]) 100-125 mg/dL PRE-DIABETES/FASTING >126 mg/dL DIABETES/FASTING Urea nitrogen [Mass/volume] in Serum or Plasma 19 mg/dL 7-18 [facility] ([facility]) Creatinine 0.7 mg/dL 0.6-1.3 [facility] Sodium [Moles/volume] in Serum or Plasma 143 meq/L 136-145 [facility] ([facility]) Chloride [Moles/volume] in Serum or Plasma 103 meq/L 98-107 [facility] ([facility]) Potassium [Moles/volume] in Serum or Plasma 3.8 meq/L 3.5-5.1 [facility] ([facility]) Carbon dioxide, total [Moles/volume] in Serum or Plasma 29 meq/L 21 -32 [facility]) Calcium [Mass/volume] in Serum or Plasma 10.2 mg/dL 8.5-10.1 [facility] ([facility]) NOTE: RESULT VERIFIED. Glomerular filtration rate/1.73 sq M pre dicted among non-blacks [Volume Rate/Area] in Serum or Plasma by Creatinine-based formula (MDRD) Laboratory test result [facility] ([facility] ) Glomerular filtration rate/1.73 sq M pre dicted among blacks [Volume Rate/Area] in Serum or Plasma by Creatinine-based formula (MDRD) Laboratory test result [facility] ([facility]) <content>CHRONIC KIDNEY DISEASE STAGING PER NKF</content>
<content></content>
<content>STAGE I & II GFR >= 60 NORMAL TO MILDLY DECREASED</content>
<content>STAGE III GFR 30-59 MODERATELY DECREASED</content>
<content>STAGE IV GFR 15-29 SEVERELY DECREASED</content>
<content>STAGE V GFR <15 VERY LITTLE GFR LEFT</content>
<content>ESRD GFR <15 ON CYBER SECURITY ADMINISTRATOR</content>
<content></content> ID Date Data Source [id number] 05/26/2020 11:17:00 AM EST [facility] ([facility]) Name Value Range Interpretation Code Description Data [place] rce(s) Supporting Document(s) Erythrocyte sedimentation rate by Westergren method 108 mm/hr 0-30 [facility] ([facility]) ID Date Data Source [id number] 05/26/2020 11:17:00 AM EST [facility] ([facility]) Name Value Range Interpretation Code Description Data [place] rce(s) Supporting Document(s) White Blood Count 4.3 10 4.0-10.0 [facility] ([facility]) Hematocrit 39.3 % 36.0-47.0 [facility] Hemoglobin 12.4 g/dL 12.0-15.5 [facility] ([facility]) Red Blood Count 3.96 10 4.00-5.40 [facility] ([facility]) Mean Corpuscular Hemoglobin 31.3 pg 27.0-33.0 [facility] ([facility]) Mean Corpuscular Volume 99.2 fl 80.0-96.0 [facility] ([facility]) Mean Corpuscular HGB Conc 31.6 g/dL 32.0-36.5 [facility] ([facility]) Red Cell Distribution Width 13.2 % 11.5-14.5 [facility] ([facility]) Platelet Count, Automated 193 10 150-450 [facility] ([facility]) Neutrophils % 62.7 % 36.0-66.0 [facility] ([facility]) [place] % 7.4 % 2.0-8.0 [facility]) Lymph % 27.8 % 24.0-44.0 [facility] Baso % 0.5 % 0.0-1.0 [facility]) Eos % 1.4 % 0.0-3.0 [facility] Neutrophils # 2.7 10 1.5-8.5 [facility] ([facility]) Nucleated Red Blood Cell % 0.0 % 0-0 [facility] ([facility]) Immature Granulocyte % 0.2 % 0-3.0 [facility] ([facility]) [place] # 0.3 10 0.0-0.8 [facility]) Lymph # 1.2 10 1.5-5.0 [facility] Baso # 0.0 10 0.0-0.2 [facility] Eos # 0.1 10 0.0-0.5 [facility] ID Date Data Source [id number] 05/26/2020 11:17:00 AM EST [facility] ([facility]) Name Value Range Interpretation Code Description Data [place] rce(s) Supporting Document(s) C reactive protein [Mass/volume] in Serum or Plasma by High sensitivity method 0.52 mg/dL 0.00-0.30 [facility] ([facility] ) ID Date Data Source [id number] 05/26/2020 11:17:00 AM EST [facility] ([facility]) Name Value Range Interpretation Code Description Data [place] rce(s) Supporting Document(s) Glucose, Fasting 99 mg/dL 70-100 [facility] ([facility]) Creatinine For GFR 0.92 mg/dL 0.55-1.30 [facility] ([facility]) Blood Urea Nitrogen 29 mg/dL 7-18 [facility] ([facility]) Sodium Level 139 meq/L 136-145 [facility] ([facility]) Glomerular Filtration Rate Laboratory test result [facility] ([facility]) <content>Units are mL/min/1.73 m2</content>
<content></content>
<content>Chronic Kidney Disease Staging per NKF:</content>
<content></content>
<content>Stage I & II GFR >=60 Normal to Mildly Decreased</content>
<content>Stage III GFR 30- 59 Moderately Decreased</content>
<content>Stage IV GFR 15-29 Severely Decreased</content>
<content>Stage V GFR <15 Very Little GFR Left</content>
<content>ESRD GFR <15 on CYBER SECURITY ADMINISTRATOR</content>
<content></content> Potassium Serum 4.9 meq/L 3.5-5.1 [facility] ([facility]) Chloride Level 105 meq/L 98-107 [facility] ([facility]) Carbon Dioxide Level 26 meq/L 21-32 [facility] ([facility]) Anion Gap 8 meq/L 8-16 [facility]) Calcium Level 10.8 mg/dL 8.8-10.2 [facility] ([facility]) ID Date Data Source [id number] 05/26/2020 11:17:00 AM EST [facility] ([facility]) Name Value Range Interpretation Code Description Data [place] rce(s) Supporting Document(s) aPTT in Blood by Coagulation assay 35.2 s 24.2-38.5 [facility] ([facility]) ID Date Data Source [id number] 05/26/2020 11:17:00 AM EST [facility] ([facility]) Name Value Range Interpretation Code Description Data [place] rce(s) Supporting Document(s) Inr 1.05 [facility] THERAPUTIC HUMAN INR VALUES INDICATIONS NORMAL RANGES PROPHYLAXIS/TREATMENT OF: VENOUS THROMBOSIS 2.0-3.0 PULMONARY EMBOLISM 2.0-3.0 PREVENTION OF SYSTEMIC EMBOLISM FROM: TISSUE HEART VALVES 2.0-3.0 ACUTE MYOCARDIAL INFARCTION 2.0-3.0 VALVULAR HEART DISEASE 2.0-3.0 ATRIAL FIBRILLATION 2.0-3.0 MECHANICAL VALVES(HIGH RISK) 2.5-3.5 RECURRENT MYOCARDIAL INFARCTION 2.5-3.5 Prothrombin Time 13.9 s 12.5-14.3 [facility] ([facility]) ID Date Data Source [id number] 05/05/2020 01:39:00 PM EST [facility] ([facility]) Name Value Range Interpretation Code Description Data [place] rce(s) Supporting Document(s) Parathyrin.intact [Mass/volume] in Serum or Plasma 26.3 pg/mL 18.5-88 .0 [facility] ([facility]) ID Date Data Source [id number] 05/05/2020 01:39:00 PM EST [facility] ([facility]) Name Value Range Interpretation Code Description Data [place] rce(s) Supporting Document(s) Calcidiol [Mass/volume] in Serum or Plasma 32.7 24.0-80.0 [facility] This test was performed using [employer] I P Vitamin D immunoassay kit. Values obtained with different assay methods should not be used interchangeably. ID Date Data Source [id number] 05/05/2020 01:39:00 PM EST [facility] ([facility]) Name Value Range Interpretation Code Description Data [place] rce(s) Supporting Document(s) Thyrotropin [Units/volume] in Serum or Plasma by Detec tion limit <= 0.05 mIU/L 0.54 uIU/mL 0.36-3.74 [facility] ([facility] ) ID Date Data Source [id number] 05/05/2020 01:39:00 PM EST [facility] ([facility]) Name Value Range Interpretation Code Description Data [place] rce(s) Supporting Document(s) Glucose [Mass/volume] in Serum or Plasma 98 mg/dL 74-99 [facility] ([facility]) 100-125 mg/dL PRE-DIABETES/FASTING >126 mg/dL DIABETES/FASTING Urea nitrogen [Mass/volume] in Serum or Plasma 49 mg/dL 7-18 [facility] ([facility]) NOTE: BUN,CALCIUM VERIFIED Potassium [Moles/volume] in Serum or Plasma 4.5 meq/L 3.5-5.1 [facility] ([facility]) Creatinine 1.2 mg/dL 0.6-1.3 [facility] ([facility]) Sodium [Moles/volume] in Serum or Plasma 142 meq/L 136-145 [facility] ([facility]) Chloride [Moles/volume] in Serum or Plasma 104 meq/L 98-107 [facility] ([facility]) Carbon dioxide, total [Moles/volume] in Serum or Plasma 23 meq/L 21 -32 [facility] ([facility]) Glomerular filtration rate/1.73 sq M pre dicted among non-blacks [Volume Rate/Area] in Serum or Plasma by Creatinine-based formula (MDRD) 45 mL/min [facility] ([facility]) Calcium [Mass/volume] in Serum or Plasma 10.6 mg/dL 8.5-10.1 [facility] ([facility]) Glomerular filtration rate/1.73 sq M pre dicted among blacks [Volume Rate/Area] in Serum or Plasma by Creatinine-based formula (MDRD) 55 mL/min [facility] <content>CHRONIC KIDNEY DISEASE STAGING PER NKF</content>
<content></content>
<content>STAGE I & II GFR >= 60 NORMAL TO MILDLY DECREASED</content>
<content>STAGE III GFR 30-59 MODERATELY DECREASED</content>
<content>STAGE IV GFR 15-29 SEVERELY DECREASED</content>
<content>STAGE V GFR <15 VERY LITTLE GFR LEFT</content>
<content>ESRD GFR <15 ON CYBER SECURITY ADMINISTRATOR</content>
<content></content> ID Date Data Source [id number] 05/05/2020 01:39:00 PM EST [facility] ([facility]) Name Value Range Interpretation Code Description Data [place] rce(s) Supporting Document(s) Hemoglobin [Mass/volume] in Blood 13.1 g/dL 12.0-18.0 [facility] ([facility]) Leukocytes [#/volume] in Blood by Automated count 5.8 x10*3/UL 4.1-10 .9 [facility] ([facility]) Erythrocytes [#/volume] in Blood by Automated count 4.01 x10*6/UL 4.2 0-6.30 [facility] ([facility]) Hematocrit [Volume Fraction] of Blood by Automated count 37.5 % 3 7.0-51.0 [facility] ([facility]) MCV 93.4 fL 80.0-97.0 [facility] ([facility]) MCH 32.6 pg 26.0-32.0 [facility] ([facility]) MCHC 34.9 g/dL 31.0-38.0 [facility] ([facility]) Platelets [#/volume] in Blood by Automated count 191 x10*3/UL 140-440 [facility] ([facility]) MPV 8.6 FL 7.8-11.0 [facility] ([facility]) Erythrocyte distribution width [Ratio] by Automated count 13.8 % 11.6-13.7 [facility] ([facility]) Mid % 6.7 % 1.7-9.3 [facility] ([facility]) Lymph % 24.4 % 10.0-58.5 [facility] ([facility]) Mid # 0.4 x10*3/UL 0.1-0.6 [facility] ([facility]) Neut % 68.9 % 37.0-92.0 [facility] ([facility]) Lymph # 1.4 x10*3/UL 0.6-4.1 [facility] ([facility]) Neut # 4.0 x10*3/UL 2.0-7.8 [facility] ([facility]) ID Date Data Source [id number] 02/14/2020 11:57:00 AM EST [facility] ([facility]) Name Value Range Interpretation Code Description Data [place] rce(s) Supporting Document(s) Inr 6.49 Above upper panic limits [facility] THERAPUTIC HUMAN INR VALUES INDICATIONS NORMAL RANGES PROPHYLAXIS/TREATMENT OF: VENOUS THROMBOSIS 2.0-3.0 PULMONARY EMBOLISM 2.0-3.0 PREVENTION OF SYSTEMIC EMBOLISM FROM: TISSUE HEART VALVES 2.0-3.0 ACUTE MYOCARDIAL INFARCTION 2.0-3.0 VALVULAR HEART DISEASE 2.0-3.0 ATRIAL FIBRILLATION 2.0-3.0 MECHANICAL VALVES(HIGH RISK) 2.5-3.5 RECURRENT MYOCARDIAL INFARCTION 2.5-3.5 Prothrombin Time 58.4 s 12.5-14.3 [facility] ([facility]) ID Date Data Source [id number] 02/14/2020 11:56:00 AM EST [facility] ([facility]) Name Value Range Interpretation Code Description Data [place] rce(s) Supporting Document(s) Leukocytes [#/volume] in Blood by Automated count 6.0 x10*3/UL 4.1-10 .9 [facility] ([facility]) Hemoglobin [Mass/volume] in Blood 13.0 g/dL 12.0-18.0 [facility] ([facility]) Erythrocytes [#/volume] in Blood by Automated count 4.11 x10*6/UL 4.2 0-6.30 [facility] ([facility]) MCV 91.1 fL 80.0-97.0 [facility] ([facility]) Hematocrit [Volume Fraction] of Blood by Automated count 37.5 % 3 7.0-51.0 [facility] ([facility]) MCH 31.6 pg 26.0-32.0 [facility] ([facility]) MCHC 34.7 g/dL 31.0-38.0 [facility] ([facility]) Erythrocyte distribution width [Ratio] by Automated count 14.2 % 11.6-13.7 [facility] ([facility]) Platelets [#/volume] in Blood by Automated count 243 x10*3/UL 140-440 [facility] ([facility]) MPV 8.3 FL 7.8-11.0 [facility]) Lymph % 21.2 % 10.0-58.5 [facility]) Mid % 5.8 % 1.7-9.3 [facility]) Lymph # 1.2 x10*3/UL 0.6-4.1 [facility] ([facility]) Neut % 73.0 % 37.0-92.0 [facility]) Neut # 4.4 x10*3/UL 2.0-7.8 [facility] ([facility]) Mid # 0.4 x10*3/UL 0.1-0.6 [facility] ([facility]) ID Date Data Source [id number] 02/14/2020 11:29:00 AM EST [facility] ([facility]) Name Value Range Interpretation Code Description Data [place] rce(s) Supporting Document(s) INR in Platelet poor plasma by Coagulation assay 7.9 [facility] ([facility]) ID Date Data Source [id number] 02/14/2020 10:58:00 AM EST [facility] ([facility]) Name Value Range Interpretation Code Description Data [place] rce(s) Supporting Document(s) Glucose [Mass/volume] in Serum or Plasma 100 mg/dL 74-99 [facility] ([facility]) 100-125 mg/dL PRE-DIABETES/FASTING >126 mg/dL DIABETES/FASTING Urea nitrogen [Mass/volume] in Serum or Plasma 17 mg/dL 7-18 [facility] ([facility]) Creatinine 0.7 mg/dL 0.6-1.3 [facility] ([facility]) Sodium [Moles/volume] in Serum or Plasma 141 meq/L 136-145 [facility] ([facility]) Potassium [Moles/volume] in Serum or Plasma 4.4 meq/L 3.5-5.1 [facility] ([facility]) Chloride [Moles/volume] in Serum or Plasma 103 meq/L 98-107 [facility] ([facility]) Carbon dioxide, total [Moles/volume] in Serum or Plasma 24 meq/L 21 -32 [facility] Calcium [Mass/volume] in Serum or Plasma 10.2 mg/dL 8.5-10.1 [facility] NOTE: RESULT VERIFIED. Glomerular filtration rate/1.73 sq M pre dicted among non-blacks [Volume Rate/Area] in Serum or Plasma by Creatinine-based formula (MDRD) Laboratory test result [facility] Glomerular filtration rate/1.73 sq M pre dicted among blacks [Volume Rate/Area] in Serum or Plasma by Creatinine-based formula (MDRD) Laboratory test result [facility] ([facility]) <content>CHRONIC KIDNEY DISEASE STAGING PER NKF</content>
<content></content>
<content>STAGE I & II GFR >= 60 NORMAL TO MILDLY DECREASED</content>
<content>STAGE III GFR 30-59 MODERATELY DECREASED</content>
<content>STAGE IV GFR 15-29 SEVERELY DECREASED</content>
<content>STAGE V GFR <15 VERY LITTLE GFR LEFT</content>
<content>ESRD GFR <15 ON CYBER SECURITY ADMINISTRATOR</content>
<content></content> ID Date Data Source [id number] 02/05/2020 11:20:00 AM EST [facility] Name Value Range Interpretation Code Description Data [place] rce(s) Supporting Document(s) INR in Platelet poor plasma by Coagulation assay 3.7 [facility] ID Date Data Source [id number] 01/31/2020 01:07:00 PM EDT [facility] Name Value Range Interpretation Code Description Data [place] rce(s) Supporting Document(s) INR in Platelet poor plasma by Coagulation assay 2.7 [facility] ID Date Data Source [id number] 01/31/2020 11:26:00 AM EDT [facility] Name Value Range Interpretation Code Description Data [place] rce(s) Supporting Document(s) Digoxin [Mass/volume] in Serum or Plasma 0.6 ng/mL 0.5-2.0 [facility] ([facility]) ID Date Data Source [id number] 01/31/2020 11:26:00 AM EDT [facility] ([facility] Name Value Range Interpretation Code Description Data [place] rce(s) Supporting Document(s) Digoxin [Mass/volume] in Serum or Plasma 0.6 ng/mL 0.5-2.0 [facility] ([facility]) ID Date Data Source [id number] 01/31/2020 11:25:00 AM EDT [facility] ([facility] Name Value Range Interpretation Code Description Data [place] rce(s) Supporting Document(s) Urine PH 6.5 units 5.0-9.0 [facility]) Urine Appearance Laboratory test result [facility] ([facility]) Urine Color Laboratory test result [facility] Urine Leukocytes Laboratory test result [facility] Specific gravity of Urine 1.010 1.005-1.030 [facility] ([facility] Urine Protein Laboratory test result 0-0 [facility] ([facility]) Urine Blood Laboratory test result [facility] ([facility]) Urine Nitrite Laboratory test result [facility] ([facility]) Glucose [Presence] in Urine Laboratory test result [facility] ([facility]) Urine Ketone Laboratory test result [facility] Urine Urobilinogen 0.2 mg/dL 0.2-1.0 [facility] ([facility]) Bilirubin.total [Mass/volume] in Serum or Plasma Laboratory test resu lt [facility] ([facility]) ID Date Data Source [id number] 01/31/2020 11:25:00 AM EDT [facility] ([facility]) Name Value Range Interpretation Code Description Data [place] rce(s) Supporting Document(s) Thyrotropin [Units/volume] in Serum or Plasma by Detec tion limit <= 0.05 mIU/L 0.16 uIU/mL 0.36-3.74 [facility] ([facility] ) ID Date Data Source [id number] 01/31/2020 11:25:00 AM EDT [facility] ([facility]) Name Value Range Interpretation Code Description Data [place] rce(s) Supporting Document(s) Urea nitrogen [Mass/volume] in Serum or Plasma 17 mg/dL 7-18 [facility] ([facility]) Glucose [Mass/volume] in Serum or Plasma 101 mg/dL 74-99 [facility] ([facility]) 100-125 mg/dL PRE-DIABETES/FASTING >126 mg/dL DIABETES/FASTING Creatinine 0.7 mg/dL 0.6-1.3 [facility] ([facility]) Sodium [Moles/volume] in Serum or Plasma 143 meq/L 136-145 [facility] ([facility]) Chloride [Moles/volume] in Serum or Plasma 104 meq/L 98-107 [facility] ([facility]) Potassium [Moles/volume] in Serum or Plasma 4.0 meq/L 3.5-5.1 [facility] ([facility]) Carbon dioxide, total [Moles/volume] in Serum or Plasma 30 meq/L 21 -32 [facility] ([facility]) Calcium [Mass/volume] in Serum or Plasma 10.7 mg/dL 8.5-10.1 [facility] ([facility]) NOTE: RESULT VERIFIED. Glomerular filtration rate/1.73 sq M pre dicted among non-blacks [Volume Rate/Area] in Serum or Plasma by Creatinine-based formula (MDRD) Laboratory test result [facility] ([facility] Glomerular filtration rate/1.73 sq M pre dicted among blacks [Volume Rate/Area] in Serum or Plasma by Creatinine-based formula (MDRD) Laboratory test result [facility] <content>CHRONIC KIDNEY DISEASE STAGING PER NKF</content>
<content></content>
<content>STAGE I & II GFR >= 60 NORMAL TO MILDLY DECREASED</content>
<content>STAGE III GFR 30-59 MODERATELY DECREASED</content>
<content>STAGE IV GFR 15-29 SEVERELY DECREASED</content>
<content>STAGE V GFR <15 VERY LITTLE GFR LEFT</content>
<content>ESRD GFR <15 ON CYBER SECURITY ADMINISTRATOR</content>
<content></content> ID Date Data Source [id number] 01/31/2020 11:25:00 AM EDT [facility] ([facility]) Name Value Range Interpretation Code Description Data [place] rce(s) Supporting Document(s) Magnesium 2.1 mg/dL 1.8-2.4 [facility] ([facility]) ID Date Data Source [id number] 01/31/2020 11:25:00 AM EDT [facility] ([facility]) Name Value Range Interpretation Code Description Data [place] rce(s) Supporting Document(s) Erythrocytes [#/volume] in Blood by Automated count 4.36 x10*6/UL 4.2 0-6.30 [facility] ([facility]) Leukocytes [#/volume] in Blood by Automated count 6.2 x10*3/UL 4.1-10 .9 [facility] ([facility]) Hemoglobin [Mass/volume] in Blood 13.8 g/dL 12.0-18.0 [facility] ([facility]) Hematocrit [Volume Fraction] of Blood by Automated count 40.7 % 3 7.0-51.0 [facility] ([facility]) MCH 31.6 pg 26.0-32.0 [facility] MCV 93.2 fL 80.0-97.0 [facility] MCHC 34.0 g/dL 31.0-38.0 [facility] Platelets [#/volume] in Blood by Automated count 236 x10*3/UL 140-440 [facility] ([facility]) Erythrocyte distribution width [Ratio] by Automated count 14.5 % 11.6-13.7 [facility] ([facility]) Lymph % 19.8 % 10.0-58.5 [facility] MPV 7.8 FL 7.8-11.0 [facility] Mid % 5.7 % 1.7-9.3 [facility] Neut % 74.5 % 37.0-92.0 [facility]) Lymph # 1.2 x10*3/UL 0.6-4.1 [facility] ([facility]) Neut # 4.6 x10*3/UL 2.0-7.8 [facility] ([facility]) Mid # 0.4 x10*3/UL 0.1-0.6 [facility] ([facility]) ID Date Data Source [id number] 01/31/2020 11:25:00 AM EDT [facility] ([facility]) Name Value Range Interpretation Code Description Data [place] rce(s) Supporting Document(s) Leukocytes [#/volume] in Blood by Automated count 6.2 x10*3/UL 4.1-10 .9 [facility] ([facility]) Hematocrit [Volume Fraction] of Blood by Automated count 40.7 % 3 7.0-51.0 [facility] ([facility]) Erythrocytes [#/volume] in Blood by Automated count 4.36 x10*6/UL 4.2 0-6.30 [facility] ([facility]) Hemoglobin [Mass/volume] in Blood 13.8 g/dL 12.0-18.0 [facility] ([facility]) MCHC 34.0 g/dL 31.0-38.0 [facility] MCV 93.2 fL 80.0-97.0 [facility] MCH 31.6 pg 26.0-32.0 [facility] Erythrocyte distribution width [Ratio] by Automated count 14.5 % 11.6-13.7 [facility] ([facility]) Platelets [#/volume] in Blood by Automated count 236 x10*3/UL 140-440 [facility] ([facility]) Platelet mean volume [Entitic volume] in Blood by Colten 7.8 FL 7.8-11.0 [facility] ([facility]) Neut % 74.5 % 37.0-92.0 [facility] Mid % 5.7 % 1.7-9.3 [facility] Lymphocytes/100 leukocytes in Blood by Automated count 19.8 % 10. 0-58.5 [facility] ([facility]) Neutrophils [#/volume] in Semen by Manual count 4.6 x10*3/UL 2.0-7.8 [facility] ([facility]) Mid # 0.4 x10*3/UL 0.1-0.6 [facility] ([facility]) Lymph # 1.2 x10*3/UL 0.6-4.1 [facility] ([facility]) ID Date Data Source [id number] 01/31/2020 11:24:00 AM EDT [facility] ([facility]) Name Value Range Interpretation Code Description Data [place] rce(s) Supporting Document(s) Thyroxine (T4) free [Mass/volume] in Serum or Plasma 1.33 ng/dL 0.76- 1.46 [facility] ID Date Data Source [id number] 01/28/2020 11:44:00 AM EDT [facility] ([facility]) Name Value Range Interpretation Code Description Data [place] rce(s) Supporting Document(s) INR in Platelet poor plasma by Coagulation assay 1.2 [facility] ([facility]) ID Date Data Source [id number] 01/24/2020 12:43:00 PM EDT [facility] ([facility]) Name Value Range Interpretation Code Description Data [place] rce(s) Supporting Document(s) INR in Platelet poor plasma by Coagulation assay 7.2 [facility] ID Date Data Source [id number] 01/24/2020 11:33:00 AM EDT [facility] Name Value Range Interpretation Code Description Data [place] rce(s) Supporting Document(s) Prothrombin Time 49.4 s 12.5-14.3 [facility] ([facility]) Inr 5.24 Above upper panic limits [facility] ([facility] THERAPUTIC HUMAN INR VALUES INDICATIONS NORMAL RANGES PROPHYLAXIS/TREATMENT OF: VENOUS THROMBOSIS 2.0-3.0 PULMONARY EMBOLISM 2.0-3.0 PREVENTION OF SYSTEMIC EMBOLISM FROM: TISSUE HEART VALVES 2.0-3.0 ACUTE MYOCARDIAL INFARCTION 2.0-3.0 VALVULAR HEART DISEASE 2.0-3.0 ATRIAL FIBRILLATION 2.0-3.0 MECHANICAL VALVES(HIGH RISK) 2.5-3.5 RECURRENT MYOCARDIAL INFARCTION 2.5-3.5 ID Date Data Source [id number] 01/24/2020 11:33:00 AM EDT [facility] ([facility]) Name Value Range Interpretation Code Description Data [place] rce(s) Supporting Document(s) Erythrocytes [#/volume] in Blood by Automated count 4.37 x10*6/UL 4.2 0-6.30 [facility] ([facility]) Leukocytes [#/volume] in Blood by Automated count 6.6 x10*3/UL 4.1-10 .9 [facility] ([facility]) Hemoglobin [Mass/volume] in Blood 13.7 g/dL 12.0-18.0 [facility] ([facility]) Hematocrit [Volume Fraction] of Blood by Automated count 40.2 % 3 7.0-51.0 [facility] ([facility]) MCV 91.9 fL 80.0-97.0 [facility] ([facility]) MCH 31.4 pg 26.0-32.0 [facility] ([facility]) MCHC 34.2 g/dL 31.0-38.0 [facility] ([facility]) Erythrocyte distribution width [Ratio] by Automated count 13.7 % 11.6-13.7 [facility] ([facility]) Platelets [#/volume] in Blood by Automated count 251 x10*3/UL 140-440 [facility] ([facility]) MPV 8.3 FL 7.8-11.0 [facility] ([facility]) Lymph % 16.8 % 10.0-58.5 [facility] ([facility]) Mid % 4.7 % 1.7-9.3 [facility] ([facility]) Lymph # 1.1 x10*3/UL 0.6-4.1 [facility] ([facility]) Neut % 78.5 % 37.0-92.0 [facility] ([facility]) Mid # 0.3 x10*3/UL 0.1-0.6 [facility] ([facility]) Neut # 5.2 x10*3/UL 2.0-7.8 [facility] ([facility]) ID Date Data Source [id number] 01/17/2020 12:07:00 PM EDT [facility]) Name Value Range Interpretation Code Description Data [place] rce(s) Supporting Document(s) INR in Platelet poor plasma by Coagulation assay 1.3 [facility] ([facility]) ID Date Data Source [id number] 12/14/2019 12:44:00 PM EDT [facility] ([facility]) Name Value Range Interpretation Code Description Data [place] rce(s) Supporting Document(s) INR in Platelet poor plasma by Coagulation assay 3.7 [facility] ([facility]) ID Date Data Source [id number] 12/05/2019 03:27:00 PM EDT [facility] ([facility]) Name Value Range Interpretation Code Description Data [place] rce(s) Supporting Document(s) INR in Platelet poor plasma by Coagulation assay 1.3 [facility] ([facility]) Procedure Social History Code Duration Value Status Description Data Source(s ) Smoking 01/22/2021 12:00:00 AM EDT Current Smoker completed Curre nt Smoker eCW1 (Replaced By [facility]) Vital Signs ID Date Data Source UNK Name Value Range Interpretation Code Description Data Source(s) Systolic blood pressure 122 mm[Hg] 122 mm[Hg] [facility] ([facility]) Diastolic blood pressure 76 mm[Hg] 76 mm[Hg] [facility] ([facility]) Heart rate 86 /min 86 /min [facility] ([facility]) Body height 66 [in_i] 66 [in_i] [facility] ([facility]) 5'6" Body weight 223.00 [lb_av] 223.00 [lb_av] [facility] ([facility]) Body mass index (BMI) [Ratio] 36.0 kg/m2 36.0 k g/m2 [facility] ([facility]) Systolic blood pressure 124 mm[Hg] 124 mm[Hg] [facility] ([facility]) Diastolic blood pressure 68 mm[Hg] 68 mm[Hg] [facility] ([facility]) Heart rate 86 /min 86 /min [facility] ([facility]) Body height 66 [in_i] 66 [in_i] [facility] ([facility]) 5'6" Body weight 217.00 [lb_av] 217.00 [lb_av] [facility] ([facility]) Body mass index (BMI) [Ratio] 35.0 kg/m2 35.0 k g/m2 [facility] ([facility]) Systolic blood pressure 114 mm[Hg] 114 mm[Hg] [facility] ([facility]) Diastolic blood pressure 76 mm[Hg] 76 mm[Hg] [facility] ([facility]) Body height 66 [in_i] 66 [in_i] [facility] ([facility]) 5'6" Body weight 221.50 [lb_av] 221.50 [lb_av] [facility] ([facility]) Body mass index (BMI) [Ratio] 35.7 kg/m2 35.7 k g/m2 [facility] ([facility]) Edgar body weight 130 [lb_av] 130 [lb_av] [facility] Body weight 100.472 kg 100.472 kg [facility] ([facility]) Body surface area Derived from formula 2.09 m2 2.09 m2 [facility] ([facility]) Diastolic blood pressure 88 mm[Hg] 88 mm[Hg] [facility] RT Arm Systolic blood pressure 136 mm[Hg] 136 mm[facility]Hg[facility] RT Arm Heart rate 120 /min 120 /min [facility] ([facility]) Body height 66 [in_i] 66 [in_i] [facility] ([facility]) 5'6" Body weight 223.50 [lb_av] 223.50 [lb_av] [facility] ([facility]) Body mass index (BMI) [Ratio] 36.1 kg/m2 36.1 k g/m2 [facility]) Edgar body weight 130 [lb_av] 130 [lb_av] [facility] ([facility]) Body height 66 [in_i] 66 [in_i] [facility] ([facility]) 5'6" Body weight 102.060 kg 102.060 kg [facility] ([facility]) Body mass index (BMI) [Ratio] 36.3 kg/m2 36.3 k g/m2 [facility] ([facility]) Body surface area Derived from formula 2.10 m2 2.10 m2 [facility] ([facility]) Diastolic blood pressure 77 mm[Hg] 77 mm[Hg] [facility] ([facility]) Body weight 225.00 [lb_av] 225.00 [lb_av] [facility] ([facility]) Systolic blood pressure 145 mm[Hg] 145 mm[Hg] [facility] Systolic blood pressure 148 mm[Hg] 148 mm[Hg] [facility] RT Arm Diastolic blood pressure 72 mm[Hg] 72 mm[Hg] [facility] ([facility]) RT Arm Systolic blood pressure 140 mm[Hg] 140 mm[Hg] M [facility] ([facility]) Diastolic blood pressure 70 mm[Hg] 70 mm[Hg] [facility] ([facility]) Heart rate 80 /min 80 /min [facility] ([facility]) Body height 66 [in_i] 66 [in_i] [facility] ([facility]) 5'6" Body weight 219.00 [lb_av] 219.00 [lb_av] [facility] ([facility]) Body mass index (BMI) [Ratio] 35.3 kg/m2 35.3 k g/m2 [facility] Body height 66 [in_i] 66 [in_i] [facility] ([facility] ) 5'6" Body weight 190.00 [lb_av] 190.00 [lb_av] [facility] ([facility] ) Body mass index (BMI) [Ratio] 30.7 kg/m2 30.7 k g/m2 [facility] ([facility] ) Body mass index (BMI) [Ratio] 35.7 kg/m2 35.7 k g/m2 [facility] ([facility] ) Body temperature 96.1 [degF] 96.1 [degF] [facility] ([facility] ) Body height 64.5 [in_i] 64.5 [in_i] [facility] ([facility] 5'4.50" Body weight 211.50 [lb_av] 211.50 [lb_av] [facility] ([facility] ) Systolic blood pressure 142 mm[Hg] 142 mm[Hg] M [facility] ([facility]) Body weight 222.00 [lb_av] 222.00 [lb_av] [facility] ([facility]) Systolic blood pressure 154 mm[Hg] 154 mm[Hg] M [facility] ([facility]) RT Arm Diastolic blood pressure 78 mm[Hg] 78 mm[Hg] [facility] ([facility]) RT Arm Diastolic blood pressure 80 mm[Hg] 80 mm[Hg] [facility] ([facility]) Heart rate 96 /min 96 /min [facility] ([facility]) Body height 66 [in_i] 66 [in_i] [facility] ([facility] 5'6" Body mass index (BMI) [Ratio] 35.8 kg/m2 35.8 k g/m2 [facility] ([facility]) Systolic blood pressure 164 mm[Hg] 164 mm[facility]Hg] [facility] Diastolic blood pressure 90 mm[Hg] 90 mm[Hg] [facility] ([facility], ) Body height 66 [in_i] 66 [in_i] [facility] 5'6" Body weight 225.00 [lb_av] 225.00 [lb_av] [facility] ([facility]) Body mass index (BMI) [Ratio] 36.3 kg/m2 36.3 k g/m2 [facility] Edgar body weight 130 [lb_av] 130 [lb_av] [facility] ([facility]) Body weight 102.060 kg 102.060 kg [facility] ([facility]) Body surface area Derived from formula 2.10 m2 2.10 m2 [facility] ([facility], ) Body weight 220.00 [lb_av] 220.00 [lb_av] [facility] ([facility]) Body height 65 [in_i] 65 [in_i] [facility] 5'5" Body mass index (BMI) [Ratio] 36.6 kg/m2 36.6 k g/m2 [facility] ([facility]) Heart rate 65 /min 65 /min [facility] ([facility] Systolic blood pressure--sitting 136 mm[Hg] 136 mm[Hg] [facility] ([facility]) Ra, large cuff Diastolic blood pressure--sitting 84 mm[Hg] 84 mm[Hg] [facility] ([facility]) Ra, large cuff Body mass index (BMI) [Ratio] 35.7 kg/m2 35.7 k g/m2 [facility] ([facility] ) Body height 66 [in_i] 66 [in_i] [facility] ([facility]) 5'6" Body weight 221.00 [lb_av] 221.00 [lb_av] [facility] ([facility]) Diastolic blood pressure 70 mm[Hg] 70 mm[Hg] [facility] ([facility]) RT Arm Heart rate 60 /min 60 /min [facility] ([facility]) Body height 66 [in_i] 66 [in_i] [facility] ([facility]) 5'6" Body mass index (BMI) [Ratio] 35.7 kg/m2 35.7 k g/m2 [facility] ([facility]) Systolic blood pressure 148 mm[Hg] 148 [facility]Hg[facility] RT Arm Body weight 221.00 [lb_av] 221.00 [lb_av] [facility] ([facility]) Body weight 226.00 [lb_av] 226.00 [lb_av] [facility] ([facility]) Body mass index (BMI) [Ratio] 36.5 kg/m2 36.5 k g/m2 [facility] ([facility]) Systolic blood pressure 138 mm[Hg] 138 mm[Hg] [facility] ([facility]) Body weight 226.00 [lb_av] 226.00 [lb_av] [facility] ([facility]) Diastolic blood pressure 90 mm[Hg] 90 mm[Hg] [facility] ([facility]) Body height 66 [in_i] 66 [in_i] [facility] ([facility]) 5'6" Body weight 217.00 [lb_av] 217.00 [lb_av] [facility] ([facility]) Body weight 220.00 [lb_av] 220.00 [lb_av] [facility] ([facility]) Body weight 216.00 [lb_av] 216.00 [lb_av] [facility] ([facility])
[2021-01-26 15:27] LABS: BASO % 0.3 % (0.0-1.0); EOS # 0.1 10^3/uL (0.0-0.5); EOS % 1.1 % (0.0-3.0); HEMATOCRIT 41.3 % (36.0-47.0); HEMOGLOBIN 12.9 g/dl (12.0-15.5); LYMPH # 0.9 10^3/uL (1.5-5.0); LYMPH % 13.8 % (24.0-44.0); MEAN CORPUSCULAR HEMOGLOBIN 31.3 pg (27.0-33.0); MEAN CORPUSCULAR HGB CONC 31.2 g/dl (32.0-36.5); MEAN CORPUSCULAR VOLUME 100.2 fl (80.0-96.0); MONO # 0.3 10^3/uL (0.0-0.8); MONO % 4.8 % (2.0-8.0); NEUTROPHILS % 79.5 % (36.0-66.0); PLATELET COUNT, AUTOMATED 202 10^3/uL (150-450); RED BLOOD COUNT 4.12 10^6/uL (4.00-5.40); WHITE BLOOD COUNT 6.3 10^3/uL (4.0-10.0)
[2021-01-26 16:08] LABS: ALBUMIN 2.8 GM/DL (3.2-5.2); ALT/SGPT 28 U/L (12-78); BILIRUBIN,DIRECT 0.4 MG/DL (0.0-0.2); BILIRUBIN,TOTAL 0.8 MG/DL (0.2-1.0); BLOOD UREA NITROGEN 18 MG/DL (7-18); CALCIUM LEVEL 10.7 MG/DL (8.8-10.2); CARBON DIOXIDE LEVEL 22 MEQ/L (21-32); CHLORIDE LEVEL 111 MEQ/L (98-107); CPK CREATINE PHOSPHOKINASE 26 U/L (26-192); CREATININE FOR GFR 0.94 MG/DL (0.55-1.30); DIGOXIN LEVEL 0.5 NG/ML (0.5-2.0); GLOMERULAR FILTRATION RATE > 60.0 (>45); GLUCOSE, FASTING 106 MG/DL (70-100); MB/CK RELATIVE INDEX 3.85 (< OR =4); NT-PRO BNP 5817 PG/ML (<125); POTASSIUM SERUM 4.6 MEQ/L (3.5-5.1); SODIUM LEVEL 140 MEQ/L (136-145); THYROID STIMULATING HORMONE 0.051 uIU/ML (0.358-3.740); THYROXINE (T4) 10.1 UG/DL (4.5-12.0); TOTAL PROTEIN 7.9 GM/DL (6.4-8.2); TROPONIN I 0.02 NG/ML (< 0.10)
[2021-01-26 16:30] VITALS: BP 128/97
[2021-01-26 17:17] LABS: RSV AMPLIFICATION NEGATIVE (NEGATIVE)
[2021-01-26] MEDS ORDERED: METOPROLOL TART 25 MG TABLET PO STA (17:31)
[2021-01-26] MEDS ORDERED: FLECAINIDE 50MG TABLET PO STA (17:31)
[2021-01-26] MEDS ORDERED: FUROSEMIDE 40MG/4ML VIAL (J1940) IV ONE (17:35)
[2021-01-26] MEDS ORDERED: GI COCKTAIL 50ML BTL(HYOSCYAMINE/MAALOX/LIDOCAINE VISCOUS)(1:3:1) PO ONE (17:45)
--- NOTE | 2021-01-26 18:30 | ECGEPIP ---
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
[2021-01-27] MEDS ORDERED: FAMO20TA PO (19:08)
== END 2021-01-26 19:18 | disposition home or self-care (01) ==
LOC: M ED 14:39
DX: I48.91 Unspecified atrial fibrillation (principal); I50.9 Heart failure, unspecified; I45.10 Unspecified right bundle-branch block; I51.7 Cardiomegaly; I25.2 Old myocardial infarction; I10 Essential (primary) hypertension; K21.9 Gastro-esophageal reflux disease without esophagitis; F32.9 Major depressive disorder, single episode, unspecified; F17.200 Nicotine dependence, unspecified, uncomplicated; Z79.01 Long term (current) use of anticoagulants; Z79.82 Long term (current) use of aspirin; Z79.899 Other long term (current) drug therapy; Z88.6 Allergy status to analgesic agent

== ENCOUNTER 2021-01-27 14:26 | Inpatient (IN) | payer MEDICARE, OTHER ==
--- NOTE | 2021-01-27 14:55 | REP ---
INDICATION: CHEST PAIN. COMPARISON: 01/26/2021 at 2:56 p.m. TECHNIQUE: Portable FINDINGS: The technique utilized in obtaining the radiograph has magnified the cardiac silhouette and accentuated the interstitial markings. There is global cardiomegaly accentuated by technique status quo. The interstitial markings have increased slightly compared to the prior exam no patchy opacities or pleural effusions have developed. There is no change in the osseous structures. IMPRESSION: Global cardiomegaly with mild interstitial edema suspected. <Electronically signed by Pawel Sanchez > 01/27/21 1523
[2021-01-27 15:08] LABS: HEMATOCRIT 41.2 % (36.0-47.0); MEAN CORPUSCULAR HEMOGLOBIN 31.3 pg (27.0-33.0); MEAN CORPUSCULAR HGB CONC 31.6 g/dl (32.0-36.5); MEAN CORPUSCULAR VOLUME 99.3 fl (80.0-96.0); PLATELET COUNT, AUTOMATED 215 10^3/uL (150-450); RED BLOOD COUNT 4.15 10^6/uL (4.00-5.40)
[2021-01-27 15:50] LABS: ATYPICAL LYMPH 2 % (0-5); EOSINOPHILS 3 % (0-3); LYMPHOCYTES 29 % (16-44); MONOCYTES 5 % (0-5); NEUTROPHILS 61 % (28-66)
[2021-01-27 15:52] LABS: PLATELET ESTIMATE NORMAL (NORMAL); TOXIC VACUOLATION 1+
[2021-01-27 15:52] LABS: ALBUMIN 2.7 GM/DL (3.2-5.2); ALT/SGPT 27 U/L (12-78); BILIRUBIN,DIRECT 0.3 MG/DL (0.0-0.2); BILIRUBIN,TOTAL 0.6 MG/DL (0.2-1.0); BLOOD UREA NITROGEN 28 MG/DL (7-18); CALCIUM LEVEL 10.7 MG/DL (8.8-10.2); CARBON DIOXIDE LEVEL 24 MEQ/L (21-32); CHLORIDE LEVEL 109 MEQ/L (98-107); CK-MB VALUE MASS < 1.0 NG/ML (<3.6); CPK CREATINE PHOSPHOKINASE 34 U/L (26-192); CREATININE FOR GFR 1.28 MG/DL (0.55-1.30); GLOMERULAR FILTRATION RATE 44.4 (>45); GLUCOSE, FASTING 85 MG/DL (70-100); LIPASE 110 U/L (73-393); MB/CK RELATIVE INDEX 2.94 (< OR =4); NT-PRO BNP 8578 PG/ML (<125); POTASSIUM SERUM 4.2 MEQ/L (3.5-5.1); SODIUM LEVEL 140 MEQ/L (136-145); THYROID STIMULATING HORMONE 0.034 uIU/ML (0.358-3.740); TOTAL PROTEIN 8.4 GM/DL (6.4-8.2); TROPONIN I < 0.02 NG/ML (< 0.10)
--- OUTSIDE RECORDS SUMMARY | 2021-01-27 15:59 | CCD | Continuity of Care Document ---
Author Author Glenna Sprague M.D. 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 01/17/20 20 Administration Of Flu Vaccine Inj ection Glenna Guajardo FNP 01/18/2019 Administration Of Flu Vaccine Inj ection Glenna Guajardo FNP 01/18/2018 Administration Of Flu Vaccine Inj Glenna Noguera FNP 01/18/2017 Immunizations CPT Code Status Date Vaccine Lot # [id number] Given 01/07/2021 Influenza Vaccin e Quadrivalent Preser/Antibiotic Free Im Use [id number] Given 01/17/2020 Influenza Vaccin e Quadrivalent Preser/Antibiotic Free Im Use [id number] 06888 Given 05/29/2019 Shingrix Zoster Vaccine (HZV), Recombinant, Subunit, Adjuvanted 09696 Given 01/18/2019 Influenza Vaccin e Quadrivalent Preser/Antibiotic Free Im Use [id number] 20492 Given 01/18/2018 Influenza Virus Vaccine, Quadrivalent ([id number]), Derived From 2 Given 04/22/2017 Pneumovax 23 [id number] 23628 Given 01/18/2017 Influenza Vaccin e Quadrivalent Preser/Antibiotic Free Im Use [id number] Vital Signs Date Vital Result Comment 01/20/2021 [...] Date Facility Test Result H/L Range Note Influenza A/B RSV Covid Amp 01/26/[address] [address] [phone] Influenza A Amplification NEGATIVE Normal Negati ve 1 Influenza B Amplification NEGATIVE Normal Negative 2 RSV Amplification NEGATIVE Normal Negative 3 Sars Covid-19 Amplification NEGATIVE Normal Negative 4 CBC With Differential 01/26/[address] [address] [phone] White Blood Count 6.3 10 Normal 4.0-10.0 Red Blood Count 4.12 10 Normal 4.00-5.40 Hemoglobin 12.9 g/dL Normal 12.0-15.5 Hematocrit 41.3 % Normal 36.0-47.0 Mean Corpuscular Volume 100.2 fl High 80.0-96.0 Mean Corpuscular Hemoglobin 31.3 pg Normal 27.0-33.0 Mean Corpuscular HGB Conc 31.2 g/dL Low 32.0-36.5 Red Cell Distribution Width 14.8 % High 11.5-14.5 Platelet Count, Automated 202 10 Normal 150-450 Neutrophils % 79.5 % High 36.0-66.0 Lymph % 13.8 % Low 24.0-44.0 Divide % 4.8 % Normal 2.0-8.0 Eos % 1.1 % Normal 0.0-3.0 Baso % 0.3 % Normal 0.0-1.0 Immature Granulocyte % 0.5 % Normal 0-3.0 Nucleated Red Blood Cell % 0.0 % Normal 0-0 Neutrophils # 5.0 10 Normal 1.5-8.5 Lymph # 0.9 10 Low 1.5-5.0 Divide # 0.3 10 Normal 0.0-0.8 Eos # 0.1 10 Normal 0.0-0.5 Baso # 0.0 10 Normal 0.0-0.2 Cardiac Marker Panel 01/26/2021 [facility] enter [address] [place] [address] [phone] CPK Creatine Phosphokinase 26 U/L Normal 26-19 2 CK-MB Value Mass 1.0 NG/ML Normal <3.6 MB/CK Relative Index 3.85 Normal < Or =4 5 Troponin I 0.02 NG/ML Normal < 0.10 6 Liver Profile 01/26/2021 [facility] nter [address] [place] [address] [phone] Ast/Sgot 26 U/L Normal 7-37 Alt/SGPT 28 U/L Normal 12-78 Alkaline Phosphatase 105 U/L Normal 45-117 Bilirubin,Total 0.8 mg/dL Normal 0.2-1.0 Bilirubin,Direct 0.4 mg/dL High 0.0-0.2 Total Protein 7.9 GM/DL Normal 6.4-8.2 Albumin 2.8 GM/DL Low 3.2-5.2 Albumin/Globulin Ratio 0.5 Low 1.2-2.2 Basic Metabolic Profile 01/26/2021 [facility] [address] [place] [address] [phone] Glucose, Fasting 106 mg/dL High 70-100 Blood Urea Nitrogen 18 mg/dL Normal 7-18 Creatinine For GFR 0.94 mg/dL Normal 0.55-1.30 Glomerular Filtration Rate > 60.0 Normal >45 7 Sodium Level 140 mEq/L Normal 136-145 Potassium Serum 4.6 mEq/L Normal 3.5-5.1 Chloride Level 111 mEq/L High 98-107 Carbon Dioxide Level 22 mEq/L Normal 21-32 Anion Gap 7 mEq/L Low 8-16 Calcium Level 10.7 mg/dL High 8.8-10.2 Laboratory test finding 01/26/2021 [facility] [address] [place] [address] [phone] NT-Pro BNP 5817 pg/mL High <125 8 Digoxin Level 0.5 NG/ML Normal 0.5-2.0 9 Thyroxine (T4) 10.1 g/dL Normal 4.5-12.0 10 Thyroid Stimulating Hormone 0.051 uIU/ML Low 0.358-3.740 11 CBC With Differential 10/15/2020 [facility] [address] [place] [address] [phone] White Blood Count 6.8 10 Normal 4.0-10.0 [...] 36.0-66.0 Lymph % 19.9 % Low 24.0-44.0 Divide % 6.0 % Normal 2.0-8.0 Eos % 1.5 % Normal 0.0-3.0 Baso % 0.3 % Normal 0.0-1.0 Immature Granulocyte % 0.1 % Normal 0-3.0 Nucleated Red Blood Cell % 0.0 % Normal 0-0 Neutrophils # 4.9 10 Normal 1.5-8.5 Lymph # 1.4 10 Low 1.5-5.0 Divide # 0.4 10 Normal 0.0-0.8 Eos # 0.1 10 Normal 0.0-0.5 Baso # 0.0 10 Normal 0.0-0.2 PT & Aptt 09/30/2020 [facility] nter [address] [place] [address] [phone] Prothrombin Time 13.8 seconds Normal 12.5-14.3 Inr 1.04 Normal 12 Partial Thromboplastin Time 30.6 seconds Normal 24.2-38.5 CBC With Differential 09/30/2020 [facility] [address] [place] [address] [phone] White Blood Count 6.2 10 Normal 4.0-10.0 [...] 36.0-66.0 Lymph % 16.4 % Low 24.0-44.0 Divide % 7.0 % Normal 2.0-8.0 Eos % 1.1 % Normal 0.0-3.0 Baso % 0.5 % Normal 0.0-1.0 Immature Granulocyte % 0.5 % Normal 0-3.0 Nucleated Red Blood Cell % 0.0 % Normal 0-0 Neutrophils # 4.6 10 Normal 1.5-8.5 Lymph # 1.0 10 Low 1.5-5.0 Divide # 0.4 10 Normal 0.0-0.8 Eos # 0.1 10 Normal 0.0-0.5 Baso # 0.0 10 Normal 0.0-0.2 Comprehensive Metabolic Profil 09/30/[address] [address] [phone] Glucose, Fasting 98 mg/dL Normal 70-100 Blood Urea Nitrogen 28 mg/dL High 7-18 Creatinine For GFR 0.90 mg/dL Normal 0.55-1.30 Glomerular Filtration Rate > 60.0 Normal >45 1 3 Sodium Level 137 mEq/L Normal 136-145 Potassium [...] 0.6 Low 1.2-2.2 Complete Blood Count 09/22/[address] [place] [address] [facility] Room Supervisor: [place] [address] [phone] WBC 5.9 x10*3/UL 4.1 - 10.9 RBC [...] 2.0 - 7.8 Laboratory test finding 09/22/2020 [place] [facility] Tan Room Supervisor: [place] [address] [phone] Sed Rate 25 mm/hr High 0 - 15 Basic Metabolic Panel 09/22/2020 [facility] Room Supervisor: [place] [address] [phone] Glucose 100 mg/dL High 74 - 99 14 BUN 18 mg/dL 7 - 18 Creatinine 0.8 mg/dL 0.6 - 1.3 Sodium 141 mEq/L 136 - 145 Potassium 3.8 mEq/L 3.5 - 5.1 Chloride 104 mEq/L 98 - 107 Carbon Dioxide 29 mEq/L 21 - 32 Calcium 10.8 mg/dL High 8.5 - 10.1 15 GFR >= 60 mL/min >60 GFR >= 60 mL/min >60 16 Laboratory test finding 09/22/2020 [place] [facility] kristin ruth Tan Room Supervisor: [place] [address] [phone] Thyroid Stimulating Hormone 0.19 uIU/mL Low 0.3 6 - 3.74 1 Negative results do not prec lude influenza or RSV virus infection and should not be used as the sole basis for treatment or other patient management decisions. 2 Negative results do not prec lude influenza or RSV virus infection and should not be used as the sole basis for treatment or other patient management decisions. 3 Negative results do not prec lude influenza or RSV virus infection and should not be used as the sole basis for treatment or other patient management decisions. 4 A false negative result may occur if a specimen is improperly collected, transported or handled. False negative results may also occur if inadequate numbers of organisms are present in the specimen. As with any molecular test, mutations within the target regions of Xpert Xpress SARS-CoV-2 could affect primer and/or probe binding resulting in failure to detect the presence of virus. This test cannot rule out diseases caused by other bacterial or viral pathogens. DISCLAIMER: Testing was performed using the [facility] [employer] [facility] SARS-CoV-2 test. This test was developed and its performance characteristics determined by [facility]. This test has not been FDA cleared or approved. This test has been authorized by FDA under an Emergency Use Authorization (EUA). This test is only authorized for the duration of time the declaration that circumstances exist justifying the authorization of the emergency use of in vitro diagnostic tests for detection of SARS-CoV-2 virus and/or diagnosis of COVID-19 infection under section 564(b)(1) of the Act, 21 U.S.C. 360bbb-3(b)(1), unless the authorization is terminated or revoked sooner. 5 DIAGNOSIS CRITERIA MMB ng/ml Relative Index (RI) NON-AMI < or = 5 N/A SANCHEZ ZONE > 5 < or = 4 AMI > 5 > 4 6 Troponin I Reference Interva l for Siemens Cordova LOCI: 99th Percentile= 0.00-0.045 ng/ml Risk Stratification: <= 0.10 ng/ml Decreased Risk for Adverse Clinical Events. 0.10-1.50 ng/ml Increased Risk for Adv erse Clinical Events. Evaluation of additional criterion and/or repeat testing in 2-6 hours is suggested to rule out myocardial damage. >= 1.50 ng/ml Indicative of Myocardial Injury. 7 Units are mL/min/1.73 m2 Chronic Kidney Disease Staging per NKF: Stage I & II GFR >=60 Normal to Mildly Decreased Stage III GFR 30-59 Moderately Decreased Stage IV GFR 15-29 Severely Decreased Stage V GFR <15 Very Little GFR Left ESRD GFR <15 on FIRE BATTALION CHIEF 8 note:<nlbl:demographic_[facility] ed> 9 note:<nlbl:demographic_[facility] ed> 10 note:<nlbl:demographic_[facility] ed> 11 note:<nlbl:[facility] ed> 12 THERAPUTIC HUMAN INR VALUES INDICATIONS NORMAL RANGES PROPHYLAXIS/TREATMENT OF: VENOUS THROMBOSIS 2.0-3.0 PULMONARY EMBOLISM 2.0-3.0 PREVENTION OF SYSTEMIC EMBOLISM FROM: TISSUE HEART VALVES 2.0-3.0 ACUTE MYOCARDIAL INFARCTION 2.0-3.0 VALVULAR HEART DISEASE 2.0-3.0 ATRIAL FIBRILLATION 2.0-3.0 MECHANICAL VALVES(HIGH RISK) 2.5-3.5 RECURRENT MYOCARDIAL INFARCTION 2.5-3.5 13 Units are mL/min/1.73 m2 Chronic Kidney Disease Staging per NKF: Stage I & II GFR >=60 Normal to Mildly Decreased Stage III GFR 30-59 Moderately Decreased Stage IV GFR 15-29 Severely Decreased Stage V GFR <15 Very Little GFR Left ESRD GFR <15 on FIRE BATTALION CHIEF 14 100-125 mg/dL PRE-DIABET ES/FASTING >126 mg/dL DIABETES/FASTING 15 NOTE: CALCIUM,TSH VERIFIED 16 CHRONIC KIDNEY DISEASE STAGI NG PER NKF STAGE I & II GFR >= 60 NORMAL TO MILDLY DECREASED STAGE III GFR 30-59 MODERATELY DECREASED STAGE IV GFR 15-29 SEVERELY DECREASED STAGE V GFR <15 VERY LITTLE GFR LEFT ESRD GFR <15 ON FIRE BATTALION CHIEF Procedures Date Code Description Status 01/07/2021 57708 Office/Outpatient Established Lo w MDM 20-29 Min Completed 01/01/2021 30471 Complex Chronic Care MGMT Servic e Ea Addl 30 Min Completed 01/01/2021 03325 Complex Chronic Care Management SVC 1St 60 Min Completed 11/14/2020 53210 Chronic Care MGMT 20 Mins Clinical Staff Time Per Calendar Month Completed 11/14/2020 84572 Chronic Care Management Services Ea Addl 20 Min Completed 10/28/2020 83669 Complex Chronic Care MGMT Servic e Ea Addl 30 Min Completed 10/28/2020 42140 Complex Chronic Care Management SVC 1St 60 Min Completed 09/26/2020 81045 Complex Chronic Care MGMT Servic e Ea Addl 30 Min Completed 09/26/2020 37262 Complex Chronic Care Management SVC 1St 60 Min Completed 09/22/2020 00187 Office/Outpatient Established Mo d MDM 30-39 Min Completed 08/25/2020 50206 Complex Chronic Care MGMT Servic e Ea Addl 30 Min Completed 08/25/2020 98981 Complex Chronic Care Management SVC 1St 60 Min Completed 06/19/2020 [id number] Bone Mineral Density Test Comple [place] 06/19/2020 13449888 Mammogram Completed Medical Devices Description No Information Available Encounters Type Date Location Provider Dx Diagnosis Office Visit 01/07/2021 2:20p [facility]CWENDY Stallworth JR S81.802A Unspecified open wound, left lower leg, initial encounter Z23 Encounter for immunization Office Visit 09/22/2020 1:30p [facility] Sprague M.D. I48.20 Chronic atrial fibrillation, unspecified Z79.01 senior care (current) use of a nticoagulants R60.9 Edema, [...] Z23 Encounter for immunization WENDY Ramsey JR 01/01/2021 I10 Essential (primary) hypertension Zehra Sprague M.D. 01/01/2021 K21.9 Gastro-esophageal reflux disease without esophagitis Zehra Sprague M.D. 01/01/2021 M15.9 Polyosteoarthritis, unspecified Zehra Sprague M.D. 11/14/2020 I10 Essential (primary) hypertension Zehra Sprague M.D. 11/14/2020 K21.9 Gastro-esophageal reflux disease without esophagitis Zehra Sprague M.D. 11/14/2020 E78.00 Pure hypercholesterolemia, unspe cified Zehra Sprague M.D. 10/28/2020 I10 Essential (primary) hypertension Zehra Sprague M.D. 10/28/2020 K21.9 Gastro-esophageal reflux disease without esophagitis Zehra Sprague M.D. 10/28/2020 E78.00 Pure hypercholesterolemia, unspe cisue Sprague M.D. 10/28/2020 M15.9 Polyosteoarthritis, unspecified Zehra Sprgaue M.D. 09/26/2020 I10 Essential (primary) hypertension Zehra Sprague M.D. 09/26/2020 K21.9 Gastro-esophageal reflux disease without esophagitis Zehra Sprague M.D. 09/26/2020 I82.502 Chronic embolism and thrombosis of unspecified deep veins of left lower extremity Zehra Sprague M.D. 09/22/2020 I48.20 Chronic atrial fibrillation, uns pecsteff Sprague M.D. 09/22/2020 Z79.01 senior care (current) use of antic oagulants Zehra Sprague [...] 3:15 pm - Zehra Sprague M.D. at [facility] Functional Status Description No Information Available Mental Status Description No Information Available Referrals Refer to Dr Reason for Referral Status Appt Date Arvin Jhaveri MD STAT CONSULT FOR OPEN WOUND LT LEG PLEASE LET OFFICE KNOW WHEN APPT IS MADE Created [facility] [address] [place] [address] [phone] Dejuan Wilks MD CONSULT FOR PVD WITH OPEN WOUND LT LEG Patient Declined 01/21/2021 [facility] [address] ,[address] [place] [address] [phone]
--- OUTSIDE RECORDS SUMMARY | 2021-01-27 15:59 | CCD | Continuity of Care Document ---
Author Author Glenna Sprague M.D. Organization Unknown Address [address] [facility] [address] [place] [address] Phone [phone] Care Team Providers Care Clinical Trial Data Manager Name Role Phone Darci Brush MD AUTM [phone] [facility] Hea AUTM [phone] Douglas Ramírez MD AUTM Unavailable [facility] Hematology/Oncology AUTM [phone] Chinyere Carpio [employer]NA [employer] AUTM [phone] Problems Active Problems Provider Date Chronic atrial [...] Consumes 3 glasses of wine per w eyak Tobacco Use Start: Unknown Patient is a [...] Lauri grey JR, PA 01/07/2021 Excedrin Migraine [phone] Tab lets 1 as needed h/a as [...] Suspension Re c administer at pharmacy 1units lGenna Guajardo FNP 05/23 Voltaren 1% Gel apply [...] la Tablets 1 every day PO Vit D=[id number] WN=833 Glenna Guajardo FNP 01/18/2017 Metoprolol Tartrate 25mg [...] CPT Code Status Date Vaccine Lot # [id number] Given 01/07/2021 Influenza Vaccin e Quadrivalent Preser/Antibiotic Free Im Use [id number] Given 01/17/2020 Influenza Vaccin e Quadrivalent Preser/Antibiotic Free Im Use [id number] [id number] Given 05/29/2019 Shingrix Zoster Vaccine (HZV), Recombinant, Subunit, Adjuvanted 97636 Given 01/18/2019 Influenza Vaccin e Quadrivalent Preser/Antibiotic Free Im Use [id number] Given 01/18/2018 Influenza Virus Vaccine, Quadrivalent ([id number]), Derived From 2 Given 04/22/2017 Pneumovax 23 [id number] Given 01/18/2017 Influenza Vaccin e Quadrivalent Preser/Antibiotic Free Im Use [id number] Vital Signs Date Vital Result Comment 01/20/2021 [...] Note Influenza A/B RSV Covid Amp 01/26/[address] [address] [phone] Influenza A Amplification NEGATIVE Normal Negati ve 1 Influenza B Amplification NEGATIVE Normal Negative 2 RSV Amplification NEGATIVE Normal Negative 3 Sars Covid-19 Amplification NEGATIVE Normal Negative 4 CBC With Differential 01/26/[address] [address] [phone] White Blood Count 6.3 10 Normal 4.0-10.0 [...] 36.0-66.0 Lymph % 13.8 % Low 24.0-44.0 Cidra % 4.8 % Normal 2.0-8.0 Eos % 1.1 % Normal 0.0-3.0 Baso % 0.3 % Normal 0.0-1.0 Immature Granulocyte % 0.5 % Normal 0-3.0 Nucleated Red Blood Cell % 0.0 % Normal 0-0 Neutrophils # 5.0 10 Normal 1.5-8.5 Lymph # 0.9 10 Low 1.5-5.0 Cidra # 0.3 10 Normal 0.0-0.8 Eos # 0.1 10 Normal 0.0-0.5 Baso # 0.0 10 Normal 0.0-0.2 Cardiac Marker Panel 01/26/2021 [facility] [address] [place] [address] [phone] CPK Creatine Phosphokinase 26 U/L Normal 26-19 2 CK-MB Value Mass 1.0 NG/ML Normal <3.6 MB/CK Relative Index 3.85 Normal < Or =4 5 Troponin I 0.02 NG/ML Normal < 0.10 6 Liver Profile 01/26/2021 [facility] nter [address] [place] [address] [phone] Ast/Sgot 26 U/L Normal 7-37 Alt/SGPT 28 U/L Normal 12-78 Alkaline Phosphatase 105 U/L Normal 45-117 Bilirubin,Total 0.8 mg/dL Normal 0.2-1.0 Bilirubin,Direct 0.4 mg/dL High 0.0-0.2 Total Protein 7.9 GM/DL Normal 6.4-8.2 Albumin 2.8 GM/DL Low 3.2-5.2 Albumin/Globulin Ratio 0.5 Low 1.2-2.2 Basic Metabolic Profile 01/26/2021 [facility] [address] [place] [address] [phone] Glucose, Fasting 106 mg/dL High 70-100 Blood [...] mg/dL High 8.8-10.2 Laboratory test finding 01/26/2021 [facility] [address] [place] [address] [phone] NT-Pro BNP 5817 pg/mL High <125 8 Digoxin Level 0.5 NG/ML Normal 0.5-2.0 9 Thyroxine (T4) 10.1 g/dL Normal 4.5-12.0 10 Thyroid Stimulating Hormone 0.051 uIU/ML Low 0.358-3.740 11 CBC With Differential 10/15/2020 [facility] [address] [place] [address] [phone] White Blood Count 6.8 10 Normal 4.0-10.0 [...] 36.0-66.0 Lymph % 19.9 % Low 24.0-44.0 Cidra % 6.0 % Normal 2.0-8.0 Eos % 1.5 % Normal 0.0-3.0 Baso % 0.3 % Normal 0.0-1.0 Immature Granulocyte % 0.1 % Normal 0-3.0 Nucleated Red Blood Cell % 0.0 % Normal 0-0 Neutrophils # 4.9 10 Normal 1.5-8.5 Lymph # 1.4 10 Low 1.5-5.0 Cidra # 0.4 10 Normal 0.0-0.8 Eos # 0.1 10 Normal 0.0-0.5 Baso # 0.0 10 Normal 0.0-0.2 PT & Aptt 09/30/2020 [facility] nter [address] [place] [address] [phone] Prothrombin Time 13.8 seconds Normal 12.5-14.3 Inr 1.04 Normal 12 Partial Thromboplastin Time 30.6 seconds Normal 24.2-38.5 CBC With Differential 09/30/2020 [facility] [address] [place] [address] [phone] White Blood Count 6.2 10 Normal 4.0-10.0 [...] 36.0-66.0 Lymph % 16.4 % Low 24.0-44.0 Cidra % 7.0 % Normal 2.0-8.0 Eos % 1.1 % Normal 0.0-3.0 Baso % 0.5 % Normal 0.0-1.0 Immature Granulocyte % 0.5 % Normal 0-3.0 Nucleated Red Blood Cell % 0.0 % Normal 0-0 Neutrophils # 4.6 10 Normal 1.5-8.5 Lymph # 1.0 10 Low 1.5-5.0 Cidra # 0.4 10 Normal 0.0-0.8 Eos # 0.1 10 Normal 0.0-0.5 Baso # 0.0 10 Normal 0.0-0.2 Comprehensive Metabolic Profil 09/30/[address] [address] [phone] Glucose, Fasting 98 mg/dL Normal 70-100 Blood [...] 0.6 Low 1.2-2.2 Complete Blood Count 09/22/2020 [facility] [employer]: [place] [address] [phone] WBC 5.9 x10*3/UL 4.1 - 10.9 RBC [...] 2.0 - 7.8 Laboratory test finding 09/22/2020 [facility] [employer]: [place] [address] [phone] Sed Rate 25 mm/hr High 0 - 15 Basic Metabolic Panel 09/22/2020 [facility] [employer]: [place] [address] [phone] Glucose 100 mg/dL High 74 - 99 [...] mL/min >60 16 Laboratory test finding 09/22/2020 [facility] kristin ruth [employer]: [place] [address] [phone] Thyroid Stimulating Hormone 0.19 uIU/mL Low 0.3 [...] pathogens. DISCLAIMER: Testing was performed using the adjust SARS-CoV-2 test. This test was developed and its performance characteristics determined by adjust. 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 8 note:<nlbl:[email or web address]_[facility]> 9 note:<nlbl:demographic_[facility]> 10 note:<nlbl:demographic_[facility]> 11 note:<nlbl:[facility]> 12 THERAPUTIC HUMAN INR VALUES INDICATIONS [...] Little GFR Left ESRD GFR <15 on REFUSE AND RECYCLING WORKER 14 100-125 mg/dL PRE-DIABET ES/FASTING >126 mg/dL DIABETES/FASTING 15 NOTE: CALCIUM,TSH VERIFIED 16 CHRONIC KIDNEY DISEASE STAGI NG PER NKF STAGE I & II GFR >= 60 NORMAL TO MILDLY DECREASED STAGE III GFR 30-59 MODERATELY DECREASED STAGE IV GFR 15-29 SEVERELY DECREASED STAGE V GFR <15 VERY LITTLE GFR LEFT ESRD GFR <15 ON REFUSE AND RECYCLING WORKER Procedures Date Code Description Status 01/07/2021 81052 Office/Outpatient Established Lo w MDM 20-29 Min Completed 01/01/2021 67706 Complex Chronic Care MGMT Servic e Ea Addl 30 Min Completed 01/01/2021 70241 Complex Chronic Care Management SVC 1St 60 Min Completed 11/14/2020 80669 Chronic Care MGMT 20 Mins Clinical Staff Time Per Calendar Month Completed 11/14/2020 80485 Chronic Care Management Services Ea Addl 20 Min Completed 10/28/2020 74262 Complex Chronic Care MGMT Servic e Ea Addl 30 Min Completed 10/28/2020 52769 Complex Chronic Care Management SVC 1St 60 Min Completed 09/26/2020 29428 Complex Chronic Care MGMT Servic e Ea Addl 30 Min Completed 09/26/2020 18239 Complex Chronic Care Management SVC 1St 60 Min Completed 09/22/2020 65040 Office/Outpatient Established Mo d MDM 30-39 Min Completed 08/25/2020 90491 Complex Chronic Care MGMT Servic e Ea Addl 30 Min Completed 08/25/2020 31417 Complex Chronic Care Management SVC 1St 60 Min Completed 06/19/2020 [id number] Bone Mineral Density Test Comple elmer 06/19/2020 [id number] Mammogram Completed Medical Devices Description No Information Available Encounters Type Date Location Provider Dx Diagnosis Office Visit 01/07/2021 2:20p [facility] St[facility] JR S81.802A Unspecified open wound, left lower leg, initial encounter Z23 Encounter for immunization Office Visit 09/22/2020 1:30p [facility] M.[facility] I48.20 Chronic atrial fibrillation, unspecified Z79.01 [facility] (current) use of a nticoagulants R60.9 Edema, [...] fibrillation, uns pecsteff Sprague M.D. 09/22/2020 Z79.01 [facility] (current) use of antic oagulants Zehra Sprague [...] 3:15 pm - Zehra Sprague M.D. at [facility] Functional Status Description No Information Available Mental Status Description No Information Available Referrals Refer to Dr Reason for Referral Status Appt Date Arvin Jhaveri MD STAT CONSULT FOR OPEN WOUND LT LEG PLEASE LET OFFICE KNOW WHEN APPT IS MADE [facility] [address] [place] [address] [phone] Dejuan Wilks MD CONSULT FOR PVD WITH OPEN WOUND LT LEG Patient Declined 01/21/2021 [facility] [address] ,[address] [place] [address] [phone]
--- OUTSIDE RECORDS SUMMARY | 2021-01-27 16:02 | CCD ---
Author Author [facility] Organization [facility] Address Unknown Phone Unavailable Care Team Providers Care Coding Clerk Name Role Phone Asim Sharma MD Unavailable [...] B Jean Carlos GUIDRY Unavailable Unavailable Fish, [facility], PA-C Unavailable Unavailabl e Fish, [facility], PA-C Unavailable Unavailabl e Fish, [facility], PA-C Unavailable Unavailabl e Fish, [facility], PA-C Unavailable Unavailabl e Fish, [facility], PA-C Unavailable Unavailabl e Fish, [facility], PA-C Unavailable Unavailabl e Fish, [facility], PA-C Unavailable Unavailabl e Fish, [facility], PA-C Unavailable Unavailabl e Fish, [facility], PA-C Unavailable Unavailabl e Fish, [facility], PA-C Unavailable Unavailabl e Fish, [facility], PA-C Unavailable Unavailabl e Fish, [facility], PA-C Unavailable Unavailabl e Fish, [facility], PA-C Unavailable Unavailabl e Fish, [facility], PA-C Unavailable Unavailabl e Fish, [facility], PA-C Unavailable Unavailabl e Fish, [facility], PA-C Unavailable Unavailabl e Fish, [facility], PA-C Unavailable Unavailabl e Fish, [facility], PA-C Unavailable Unavailabl e Fish, [facility], PA-C Unavailable Unavailabl e Fish, [facility], PA-C Unavailable Unavailabl e Fish, [facility], PA-C Unavailable Unavailabl e Fish, [facility], PA-C Unavailable Unavailabl e Fish, [facility], PA-C Unavailable Unavailabl e Fish, [facility], PA-C Unavailable Unavailabl e Fish, [facility], PA-C Unavailable Unavailabl e Fish, [facility], PA-C Unavailable Unavailabl e Fish, [facility], PA-C Unavailable Unavailabl e Fish, [facility], PA-C Unavailable Unavailabl e Fish, [facility], PA-C Unavailable Unavailabl e Fish, [facility], PA-C Unavailable Unavailabl e Fish, [facility], PA-C Unavailable Unavailabl e Fish, [facility], PA-C Unavailable Unavailabl e Fish, [facility], PA-C Unavailable Unavailabl e Fish, [facility], PA-C Unavailable Unavailabl e Fish, [facility], PA-C Unavailable Unavailabl e Fish, [facility], PA-C Unavailable Unavailabl e PICKAsim SOLARES JR, [...] Unavailable David Sprague MD Unavailable Unavailable David Srpague MD Unavailable Unavailable David Sprague MD Unavailable [...] is protected by Article 27-F of the [facility] Public Health law. If you continue you may have access to information: Regarding HIV / AIDS; Provided by facilities licensed or operated by the [facility] Office of Mental Health; or Provided by the [facility] Office for People With Developmental Disabilities. If such information is present, then the following [facility] mandated warning applies: This information has [...] law may result in a fine or prison sentence or both. A general authorization for the release of medical or other information is NOT sufficient authorization for further disc losure. Allergies and Adverse Reactions Type Description Substance Reaction Status Data Source(s ) Drug Allergy Drug Allergy NKDA MED[facility] ([facility] ) Family History Family Member Name Family Member Gender Family Member Status Date o f Status Description Data Source(s) Unknown Male Problem [facility] ([facility]) Unknown Male Problem [facility] ([facility]) Encounters Encounter Providers Location Date Indications Data Source(s ) Unknown [id number] [facility] [id number] 01/22/2021 12:00:00 AM EDT eCW1 ([facility]) Outpatient Attender: DIONISIO French 1 02:20:00 PM EDT MEDENT ([facility] ) Outpatient Admitter: ABDIAS ADJAPONGReferrer: ABDIAS ADJAPONG 10/15/2020 12:00:00 AM EDT Multiple myeloma not having achieved remission [facility] Multiple myeloma not having achieved rem ission Outpatient Attender: Callie Marrufo RPA [place] 09/29/2020 10:15:00 AM EDT MED[facility] ([facility]) Outpatient Attender: Zehra French 01:30:00 PM EDT MED[facility] ([facility] ) Outpatient Attender: Callie Marrufo RPA [place] 09/11/2020 10:45:00 AM EDT MED[facility] ([facility]) Outpatient Attender: Zehra French 01:30:00 PM EDT MEDENT ([facility] ) Outpatient Attender: Jarek Sharma MD Physical Therapy 10:30:00 AM EDT MED[facility] ([facility]) Office Visit Attender: Lynette BRAY PA-C Physical Therapy 07/15/2020 01:15:00 PM EDT MED[facility] ([facility]) Outpatient Attender: Jean Carlos Mcginnis MD Physical Therapy 07/01/2020 1 2:45:00 PM EDT MED[facility] ([facility]) Outpatient Attender: Lynette BRAY PA-C Physical Therapy 06/24/2020 11:15:00 AM EDT MED[facility] ([facility]) Outpatient Attender: Zehra French 02:30:00 PM EDT MED[facility] ([facility] ) Outpatient Attender: Callie Marrufo RPA [place] 06/12/2020 09:15:00 AM EST MED[facility] ([facility]) Outpatient Attender: ADAIR NGUYEN Main Office 05/27/2020 1 1:45:00 AM EST [facility] ([facility]) Outpatient Attender: Zehra French 12:00:00 PM EST MEDENT ([facility] ) Outpatient Attender: Zehra French 10:30:00 AM EDT MED[facility] ([facility] ) Immunizations Vaccine Date Status Description Data Source(s) Influenza, injectable, MDCK, preservative free, mima valent 01/07/2021 02:31:00 PM EDT completed [facility]) Influenza, injectable, MDCK, preservative free, mima valent 01/17/2020 12:10:00 PM EDT completed MEDENT ([facility]) Medications Medication Brand Name [...] 01/07/2021 12:00:00 AM EDT ORAL active MEDENT ([facility]) Administration Of Flu Vaccine 01/07/2021 12:00:00 AM EDT completed MEDENT ([facility]) Medication administered onsite 2 ML Sodium Hyaluronate 10 MG/ML Prefilled Syringe [Euflexxa ] Euflexxa 07/15/2020 12:00:00 AM EDT active MED[facility] ([facility] atorvastatin 20 MG Oral Tablet [...] 06/18/2020 12:00:00 AM EDT activ e MEDENT ([facility]) 20 mg 06/18/2020 12:00:00 AM EDT [...] 06/17/2020 12:00:00 AM EDT ORAL active MEDENT ([facility]) Furosemide 20 MG Oral Tablet Furosemide 06/17/2020 12:00:00 AM EDT ORAL active MED[facility] ([facility]) 5 mg 06/16/2020 12:00:00 [...] ORAL active [facility] ([facility] 24 HR Bupropion Hydrochloride 150 [...] 12:00:00 AM EST ORAL a ctive MEDENT ([facility]) 24 HR Bupropion Hydrochloride 150 MG Extended Release Oral Tablet Bupropion Hydrochloride ER (XL) 05/05/2020 12:00:00 AM EST ORAL a ctive MEDENT ([facility]) 5 mg 03/15/2020 12:00:00 AM EST [...] 12:00:[address] ORAL active MEDENT ([facility]) apixaban 5 MG Oral Tablet [Eliquis] Eliquis 02/18/2020 12:00:[address] ORAL active MEDENT ([facility]) Administration Of Flu Vaccine 01/17/2020 12:00:00 AM EDT completed [facility] ([facility]) Medication administered onsite 20 mg [...] relationship to godwin Policy Godwin Plan Information [employer] [place] ([facility]) [facility] Part B [id number] Family Dependent [id number] [employer] [place] ([facility]) [facility] Part B [id number] Family Dependent [id number] [employer] [place] [facility]) [facility] Part B [id number] Family Dependent [id number] Medicare Natl Govt Serv Medicare Primary [id number] Self [id number] Medicare Natl Govt [facility] Medicare Primary [id number] [id number] Self [id number] [place] [id number] Self [id number] Medicare [facility] Govt [facility] Medicare Primary [id number] Self [id number] MEDICARE A [id number] Self [id number] Medicare Natl Govt [facility] Medicare Primary [id number] Self [id number] Medicare Natl Govt Serv Medicare Primary [id number] [id number] Self [id number] Medicare Natl Govt Serv Medicare Primary [id number] [id number] Self [id number] [place] Primary [id number] [id number] Self [id number] Medicare Natl [facility] Primary [id number] [id number] Self [id number] Medicare Natl [facility] Medicare Primary [id number] [id number] Self [id number] Medicare Natl [facility] Medicare Primary [id number] [id number] Self [id number] Medicare Natl [facility] Medicare Primary [id number] Self [id number] Medicare Natl [facility] Medicare Primary [id number] Self [id number] Medicare Natl Govt Servic Medicare Primary [id number] [id number] Self [id number] Medicare Natl [facility] Medicare Primary [id number] [id number] Self [id number] [place] Primary [id number] [id number] Self [id number] FOR LIFE U [id number] Self [id number] WPS For Life Medigap Part B [id number] Family Dependent [id number] FOR LIFE [id number] SP [id number] MEDICARE C [id number] S [id number] FOR LIFE O [id number] S [id number] WPS For Life Medigap Part B [id number] Family Dependent [id number] WPS For Life Medigap Part B [id number] Family Dependent [id number] WPS For Life Medigap Part B [id number] Family Dependent [id number] WPS For Life Medigap Part B [id number] Family Dependent [id number] WPS For Life Medigap Part B [id number] [id number] Family Dependent [id number] WPS For Life Medigap Part B [id number] Family Dependent [id number] WPS For Life Medigap Part B [id number] Family Dependent [id number] WPS For Life Medigap Part B [id number] Family Dependent [id number] WPS For Life Medigap Part B [id number] Family Dependent [id number] MEDICARE [id number] SP [id number] A MEDICARE C [id number] S [id number] A S [employer], [facility] C [id number] S [id number] WPS For Life Medigap Part B [id number] Family Dependent [id number] MEDICARE [id number] SP [id number] WPS For Life Medigap Part B [id number] Family Dependent [id number] WPS For Life Medigap Part B [id number] Family Dependent [id number] Problems, Conditions, and Diagnoses Code Display Name Description Problem Type Effective Dates Data Source(s) C90.00 Multiple myeloma not having achieved rem ission Multiple myeloma not having achieved remission Diagnosis 10/15/2020 01:43:00 PM EDT [facility] I87.312 [id number] 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 Problem 01/22/2021 12:00:00 AM EDT eCW1 ([facility]) L97.822 [id number] Non-pressure chronic ulcer of other part of left lower leg with fat layer exposed Problem 01/22/2021 12:00:00 AM EDT eCW1 ([facility]) I27.81 Chronic cor pulmonale Chronic cor pulmonale Problem 11/24/2020 12:00:00 AM EDT MEDENT ([facility]) I65.29 Carotid artery occlusion Carotid artery occlusion Prob muriel 05/27/2020 12:00:00 AM EST MEDENT ([facility]) I82.503 Deep venous thrombosis of lower extremit y Deep venous thrombosis of lower extremity Problem 05/27/2020 12:00:00 AM EST [facility] ([facility]) E78.2 Mixed hyperlipidemia Mixed hyperlipidemia Problem 05/27/2020 12:00:00 AM EST MEDENT ([facility]) Surgeries/Procedures Procedure Description Date Indications Data Source(s) OFFICE OUTPATIENT VISIT 15 MINUTES 01/07/2021 12:00:00 AM EDT MEDENT ([facility]) Complex Chronic Care Management SVC 1St 60 Min 021 12:00:00 AM EDT MEDENT ([facility]) Complex Chronic Care MGMT Service Ea Addl 30 Min 01/01 12:00:00 AM EDT MEDSOLITARIO ([facility]) ECG ROUTINE ECG W/LEAST 12 LDS W/I&R 12/05/2020 12:00: 00 AM EDT MEDENT ([facility]) OFFICE OUTPATIENT VISIT 25 MINUTES 12/05/2020 12:00:00 AM EDT MEDENT ([facility]) ECG ROUTINE ECG W/LEAST 12 LDS W/I&R 11/24/2020 12:00: 00 AM EDT MEDENT ([facility]) OFFICE OUTPATIENT VISIT 25 MINUTES 11/24/2020 12:00:00 AM EDT MED[facility] ([facility]) Chronic Care Management Services Ea Addl 20 Min 2020 12:00:00 AM EDT MEDSOLITARIO ([facility]) Chronic Care MGMT 20 Mins Clinical Staff Time Per Calendar [facility] 11/14/2020 12:00:00 AM EDT MEDENT ([facility] ) Complex Chronic Care Management SVC 1St 60 Min 021 12:00:00 AM EDT MEDENT ([facility]) Complex Chronic Care MGMT Service Ea Addl 30 Min 10/28 12:00:00 AM EDT MEDENT ([facility]) OFFICE OUTPATIENT VISIT 25 MINUTES 09/29/2020 12:00:00 AM EDT MEDENT ([facility] ) Complex Chronic Care Management SVC 1St 60 Min 021 12:00:00 AM EDT MEDSOLITARIO ([facility]) Complex Chronic Care MGMT Service Ea Addl 30 Min 09/26 12:00:00 AM EDT [facility]SOLIT[facility]IO ([facility]) OFFICE OUTPATIENT VISIT 25 MINUTES 09/22/2020 12:00:00 AM EDT [facility]SOL[facility] ([facility]) OFFICE OUTPATIENT VISIT 25 MINUTES 09/11/2020 12:00:00 AM EDT MEDSOLITARIO ([facility], ) Complex Chronic Care Management SVC 1St 60 Min 021 12:00:00 AM EDT [facility]SOLITAR[facility] ([facility]) Complex Chronic Care MGMT Service Ea Addl 30 Min 08/25 12:00:00 AM EDT [facility]SOL[facility] ([facility]) Complex Chronic Care Management SVC 1St 60 Min 021 12:00:00 AM EDT [facility] ([facility]) Complex Chronic Care MGMT Service Ea Addl 30 Min 07/25 12:00:00 AM EDT [facility] ([facility]) OFFICE OUTPATIENT VISIT 25 MINUTES 07/24/2020 12:00:00 AM EDT [facility] ([facility]) ARTHROCENTESIS ASPIR&/INJECTION MAJOR JT/BURSA 021 12:00:00 AM EDT [facility] ([facility]) RADEX SHOULDER COMPLETE MINIMUM 2 VIEWS 07/18/2020 12: 00:00 AM EDT [facility] ARTHROCENTESIS ASPIR&/INJECTION MAJOR JT/BURSA 021 12:00:00 AM EDT [facility] ([facility]) Complex Chronic Care Management SVC 1St 60 Min 021 12:00:00 AM EDT [facility]SOLIT[facility] ([facility]) Complex Chronic Care MGMT Service Ea Addl 30 Min 07/01 12:00:00 AM EDT [facility]SOL[facility] ([facility]) INJECTION 1 TENDON SHEATH/LIGAMENT APONEUROSIS 021 12:00:00 AM EDT [facility] ARTHROCENTESIS ASPIR&/INJECTION MAJOR JT/BURSA 021 12:00:00 AM EDT MEDENT ([facility]) RADIOLOGIC EXAM KNEE COMPLETE 4/MORE VIEWS 06/24/2020 12:00:00 AM EDT MED[facility] ([facility]) RADIOLOGIC EXAM KNEE COMPLETE 4/MORE VIEWS 06/24/2020 12:00:00 AM EDT MEDENT ([facility]) Mammogram 06/19/2020 12:00:00 AM EDT [facility] Bone Mineral Density Test 06/19/2020 12:00:00 AM EDT MEDENT ([facility]) Brief Emotional/Behav Assessment W/ Scoring Doc Per Standard Inst 06/17/2020 12:00:00 AM EDT [facility] OFFICE OUTPATIENT VISIT 25 MINUTES 06/17/2020 12:00:00 AM EDT [facility] OFFICE OUTPATIENT NEW 45 MINUTES 06/12/2020 12:00:00 A M EST MEDENT ([facility], ) ECG ROUTINE ECG W/LEAST 12 LDS W/I&R 05/27/2020 12:00: 00 AM EST MED[facility] ([facility]) OFFICE OUTPATIENT VISIT 15 MINUTES 05/27/2020 12:00:00 AM EST [facility] ([facility]) Complex Chronic Care Management SVC 1St 60 Min 021 12:00:00 AM EST MED[facility] ([facility]) Complex Chronic Care MGMT Service Ea Addl 30 Min 05/27 12:00:00 AM EST [facility] OFFICE OUTPATIENT VISIT 25 MINUTES 05/05/2020 12:00:00 AM EST [facility] ([facility]) Complex Chronic Care Management SVC 1St 60 Min 020 12:00:00 AM EST [facility] Complex Chronic Care MGMT Service Ea Addl 30 Min 03/25 12:00:00 AM EST [facility] Brief Emotional/Behav Assessment W/ Scoring Doc Per Standard Inst 01/31/2020 12:00:00 AM EDT [facility] Results ID Date Data Source [id number] 01/26/2021 03:51:00 PM EDT [facility] Name Value Range Interpretation Code Description Data Mariposa rce(s) Supporting Document(s) Influenza A Amplification Laboratory test result MEDENT ([facility]) Negative results do not preclude influen za or RSV virus infection and should not be used as the sole basis for treatment or other patient management decisions. Influenza B Amplification Laboratory test result MEDENT ([facility]) Negative results do not preclude influen za or RSV virus infection and should not be used as the sole basis for treatment or other patient management decisions. Laboratory test finding (navigational concept) Laboratory test result MEDENT ([facility]) A false negative result may occur if a s pecimen is improperly collected, transported or handled. False [...] pathogens. DISCLAIMER: Testing was performed using the [employer] SARS-CoV-2 test. This test was developed and its performance characteristics determined by [employer]. This test has not been FDA cleared [...] the authorization is terminated or revoked sooner. RSV Amplification Laboratory test result MEDENT ([facility]) Negative results do not preclude influen za or RSV virus infection and should not be used as the sole basis for treatment or other patient management decisions. ID Date Data Source [id number] 01/26/2021 03:01:00 PM EDT [facility]) Name Value Range Interpretation Code Description Data Mariposa rce(s) Supporting Document(s) Digoxin [Mass/volume] in Serum or Plasma 0.5 ng/mL 0.5-2.0 [facility]) <content>note:<nlbl:demographic_changed> </content>
<content></content> Natriuretic peptide.B prohormone N-Terminal [Mass/volu me] in Serum or Plasma 5817 pg/mL [facility] <content>note:<nlbl:demographic_changed> </content>
<content></content> Thyroxine (T4) Ab [Units/volume] in Serum 10.1 ug/dL 4.5-12.0 [facility] <content>note:<nlbl:demographic_changed> </content>
<content></content> Thyrotropin [Units/volume] in Serum or Plasma by Detec tion limit <= 0.05 mIU/L 0.051 uIU/ML 0.358-3.740 [facility] <content>note:<nlbl:demographic_changed> </content>
<content></content> ID Date Data Source [id number] 01/26/2021 03:01:00 PM EDT [facility] ([facility]) Name Value Range Interpretation Code Description Data Mariposa rce(s) Supporting Document(s) Glucose, Fasting 106 mg/dL 70-100 [facility] ([facility]) Creatinine For GFR 0.94 mg/dL 0.55-1.30 MED[facility] ([facility]) Blood Urea Nitrogen 18 mg/dL 7-18 MED[facility] ([facility]) Glomerular Filtration Rate Laboratory test result [facility] ([facility]) <content>Units are mL/min/1.73 m2</content>
<content></content>
<content>Chronic Kidney Disease Staging per NKF:</content>
<content></content>
<content>Stage I & II GFR >=60 Normal to Mildly Decreased</content>
<content>Stage III GFR 30- 59 Moderately Decreased</content>
<content>Stage IV GFR 15-29 Severely Decreased</content>
<content>Stage V GFR <15 Very Little GFR Left</content>
<content>ESRD GFR <15 on CAN WASHER</content>
<content></content> Sodium Level 140 meq/L 136-145 MED[facility] ([facility]) Chloride Level 111 meq/L 98-107 MED[facility] ([facility]) Potassium Serum 4.6 meq/L 3.5-5.1 MED[facility] ([facility]) Anion Gap 7 meq/L 8-16 [facility] ([facility]) Carbon Dioxide Level 22 meq/L 21-32 [facility] Calcium Level 10.7 mg/dL 8.8-10.2 [facility] ([facility]) ID Date Data Source [id number] 01/26/2021 03:01:00 PM EDT [facility] Name Value Range Interpretation Code Description Data Mariposa rce(s) Supporting Document(s) Ast/Sgot 26 U/L 7-37 MED[facility] ([facility]) Alt/SGPT 28 U/L 12-78 MED[facility] ([facility]) Bilirubin,Total 0.8 mg/dL 0.2-1.0 MED[facility] ([facility]) Alkaline Phosphatase 105 U/L 45-117 MED[facility] ([facility]) Total Protein 7.9 GM/DL 6.4-8.2 MED[facility] ([facility]) Bilirubin,Direct 0.4 mg/dL 0.0-0.2 [facility] Albumin/Globulin Ratio 0.5 1.2-2.2 [facility] Albumin 2.8 GM/DL 3.2-5.2 [facility] ([facility]) ID Date Data Source [id number] 01/26/2021 03:01:00 PM EDT MED[facility] ([facility]) Name Value Range Interpretation Code Description Data Mariposa rce(s) Supporting Document(s) CPK Creatine Phosphokinase 26 U/L 26-192 [facility] MB/CK Relative Index 3.85 [facility] <content>DIAGNOSIS CRITERIA</content>
<content>MMB ng/ml Relative Index (RI)</content>
<content>NON-AMI < or = 5 N/A</content>
<content>SANCHEZ ZONE > 5 < or = 4</content>
<content>AMI > 5 > 4</content>
<content></content> CK-MB Value Mass 1.0 ng/mL [facility]) Troponin I 0.02 ng/mL [facility] ([facility]) <content>Troponin I Reference Interval f or Siemens Newcomb LOCI:</content>
<content></content>
<content>99th Percentile= 0.00-0.045 ng/ml</content>
<content></content>
<content>Risk Stratification:</content>
<content><= 0.10 ng/ml Decreased Risk for Adverse Clinical</content>
<content>Events.</content>
<content>0.10-1.50 ng/ml Increased Risk for Adverse Clinical</content>
<content>Events. Evaluation of additional</content>
<content>criterion and/or repeat testing in 2-6</content>
<content>hours is suggested to rule out myocardial</content>
<content>damage.</content>
<content>>= 1.50 ng/ml Indicative of Myocardial Injury.</content>
<content></content> ID Date Data Source [id number] 01/26/2021 03:01:00 PM EDT [facility] ([facility]) Name Value Range Interpretation Code Description Data [place] rce(s) Supporting Document(s) White Blood Count 6.3 10 4.0-10.0 [facility] ([facility]) Hemoglobin 12.9 g[facility] [facility] Red Blood Count 4.12 10 4.00-5.40 [facility] ([facility]) Mean Corpuscular Hemoglobin 31.3 pg 27.0-33.0 [facility] ([facility]) Mean Corpuscular Volume 100.2 fl 80.0-96.0 [facility] ([facility]) Hematocrit 41.3 % 36.0-47.0 [facility] [facility] Red Cell Distribution Width 14.8 % 11.5-14.5 [facility] ([facility]) Mean Corpuscular HGB Conc 31.2 g/dL 32.0-36.5 [facility] NT ([facility]) Platelet Count, Automated 202 10 150-450 [facility] NT ([facility]) Neutrophils % 79.5 % 36.0-66.0 [facility] ([facility]) Lymph % 13.8 % 24.0-44.0 [facility] [facility] Eos % 1.1 % 0.0-3.0 [facility] [facility] Morrison % 4.8 % 2.0-8.0 [facility] [facility] Immature Granulocyte % 0.5 % 0-3.0 [facility] ([facility]) Baso % 0.3 % 0.0-1.0 [facility] [facility] Neutrophils # 5.0 10 1.5-8.5 [facility] ([facility]) Nucleated Red Blood Cell % 0.0 % 0-0 MED ENT ([facility]) Lymph # 0.9 10 1.5-5.0 [facility] [facility]) Eos # 0.1 10 0.0-0.5 [facility] [facility]) Baso # 0.0 10 0.0-0.2 [facility] [facility]) Morrison # 0.3 10 0.0-0.8 [facility] [facility] ID Date Data Source [id number] 01/07/2021 02:57:00 PM EDT [facility] ([facility]) Name Value Range Interpretation Code Description Data Mariposa rce(s) Supporting Document(s) Bacteria identified in Wound shallow by Aerobe culture Laborator y test result [facility] ([facility]) ID Date Data Source [id number] 10/15/2020 12:29:00 PM EDT [facility] ([facility]) Name Value Range Interpretation Code Description Data [place] rce(s) Supporting Document(s) White Blood Count 6.8 5.0-10.0 [facility] ([facility]) Platelets 187 172-450 [facility] Red Blood Count 3.85 4.00-5.40 [facility] ([facility]) Hemoglobin 12.7 [facility] ([facility]) Hematocrit 39.4 [facility] ([facility]) ID Date Data Source [id number] 10/15/2020 12:21:00 PM EDT [facility] ([facility]) Name Value Range Interpretation Code Description Data [place] rce(s) Supporting Document(s) Red Blood Count 3.85 10 4.00-5.40 [facility] ([facility]) White Blood Count 6.8 10 4.0-10.0 [facility] ([facility]) Hemoglobin 12.7 g/dL 12.0-15.5 [facility] ([place] [facility]) Hematocrit 39.4 % 36.0-47.0 [facility] ([facility]) Mean Corpuscular Volume 102.3 fl 80.0-96.0 [facility] ([facility]) Mean Corpuscular Hemoglobin 33.0 pg 27.0-33.0 [facility] ([facility]) Red Cell Distribution Width 12.3 % 11.5-14.5 [facility] ([facility]) Mean Corpuscular HGB Conc 32.2 g/dL 32.0-36.5 [facility] NT ([facility]) Platelet Count, Automated 187 10 150-450 [facility] NT ([facility]) Neutrophils % 72.2 % 36.0-66.0 [facility] ([facility]) Lymph % 19.9 % 24.0-44.0 [facility] [facility]) Morrison % 6.0 % 2.0-8.0 [facility] [facility]) Eos % 1.5 % 0.0-3.0 [facility] [facility]) Baso % 0.3 % 0.0-1.0 [facility] [facility]) Immature Granulocyte % 0.1 % 0-3.0 [facility] ([facility]) Nucleated Red Blood Cell % 0.0 % 0-0 [facility] ([facility]) Neutrophils # 4.9 10 1.5-8.5 [facility]) Lymph # 1.4 10 1.5-5.0 [facility] [facility]) Morrison # 0.4 10 0.0-0.8 [facility] [facility]) Eos # 0.1 10 0.0-0.5 [facility] [facility]) Baso # 0.0 10 0.0-0.2 [facility] [facility]) ID Date Data Source [id number] 10/17/2020 05:25:00 PM EDT [facility] Hematopathology Report See Addendum Levi wName: GLENNA HOODMRN: [id number] Number: [id number] Date: 10/15/2020 00:00Received Date: 10/16/2020 13:57Physician(s): ABDIAS WERNER MD ADJAPONG, OPOKU,[facility]opy To:[facility]s) ReceivedA: Bone Marrow, Flow Cytometry; RECEIVED 1 [...] and TP53, and an IgH rearrangement. See [id number] of 1q and deletion of 13q are associated with progression. [id number] is generally associated with an intermediate risk and 1q gain isassociated with high risk. Addendum Electronically Signed By: Brenda Jeffery M.D. 10/27/2020 11:16 ProceduresFlow Cytometry Date Ordered:10/16/2020 Status: Signed Out10/17/2020 InterpretationPERIPHERAL BLOOD: [facility] ([facility]15[facility]20)WBC 6.8 K/uLRBC *3.85 M/uLHgb 12.7 g/dLHct 39.4 %MCV *102.3 fLMCH 33.0 pgMCHC 32.2 g/dLRDW 12.3 %Platelets 187 K/ulDifferential Count (automated):72.2 % Neutrophils 1.5 % Eosinophils 0.3 % Lpgdekslk01.9 % Lymphocytes 0.1 % Atypical Lymphocytes 6.0 % Monocytes-------100.0 % A peripheral blood film is reviewed. BONE MARROW ASPIRATE:Differential Count (100 cells): 6 % Erythroid Precursors 2 % N. Myelocytes 1 % N. Metamyelocytes and Band Forms80 % Neutrophils 4 % Eosinophils 1 % Basophils 5 % Lymphocytes 1 % Plasma Cells--------100 % Morphology: Dilute sample.Lymphoid Panel: Sana Manzanares HP21 1829 [id number] following markers were assayed: CD45 (gate), CD2, CD3, CD4, CD5, CD7,CD8, CD10, CD19, CD20, CD33, CD34, CD38, CD56, CD57, CD64, CD117, CD123,HLA-DR, [place], and Lambda.#events: [id number]: 98%Flow Cytometry Differential (CD45/SSC)Lymphocyte Isabella: 15%CD45 dim Isabella: 1%Monocyte Isabella: 4%Granulocyte Isabella: 73%Nucleated/Erythroid Isabella: 2%The lymphocyte gate showsB-cells (CD19): 14%T-cells (CD3): 75%NK-cells (CD3-/CD56+): 9%[place]/Lambda Ratio: 2.9CD4/CD8 Ratio: 1.8Results: (expressed as % of lymphocyte gate)T-cell Markers: CD2 = 80, CD3 = 75, CD3/CD4 = 48, CD3/CD8 = 27, CD5 = 74,CD7 = 75, CD3/57 = 8B-cell wendi ers: [place] = 9, Lambda = 3, CD19 = 14, CD20 = 16, CD19/10 = 1,CD19/CD5 = 3, CD38/CD20 = 15Light chain as % of B-Cells: CD19/[place] = 54, CD19/Lambda = 17CD19/CD5/[place] = 4, CD19/CD5/Lambda = 5CD19/CD10/[place] = 7, CD19/CD10/Lambda = 1NK cell Markers: CD56 = 12, CD57 = 13Other Markers: CD10 = 1, CD38 = 63Results: (expressed as % of CD45 dim gate)T-cell Markers: CD2 = 27, CD3 = 8, CD3/CD4 = 2, CD3/CD8 = 4, CD5 = 10, CD7= 26, CD3/57 = 2B-cell markers: [place] = 29, Lambda = 0, CD19 = 16, CD20 = 14, CD19/10 =12, CD19/CD5 = 3, CD38/CD20 = 11Light chain as % of B-Cells: CD19/[place] = 0, CD19/Lambda = 0CD19/CD10/[place] = 6, CD19/CD10/Lambda = 2NK cell Markers: CD56 = 16, CD57 = 13Basophil Markers: CD123 (HLA-DR-) = 19Other Markers: CD10 = 25, CD38 = 85, CD33 = 47, CD34 = 23, CD64 = 20,CD117 = 5, CD123 = 56, HLA-DR = 57[facility] HP21 1829 [id number] following markers were assayed: CD45 (cell gate), CD138 (plasma cellgate), CD19, CD20, CD38, CD56, cytoplasmic [place], and cytoplasmic La mbda.(Please note, that Cytoplasmic [place] and Cytoplasmic Lambda are used todetect plasma cells, while surface [place] and Lambda are for lymphocytes).#events: [id number]: Routinely a minimum of 500,000 events are collected in each paneltube. Due to sample cellularity and/or processing this number was notachievable for this sample.Flow Cytometry Differential:Lymphocyte Isabella: 13%CD45 dim Isabella: 2%Monocyte Isabella: 4%Granulocyte Isabella: 74%NRBC Isabella: 3%CD138 Plasma Cell Isabella: 0%Results: (expressed as % of lymphocyte gate)B-Cells (CD19): 14% CD19 = 14, CD20 = 14Light chain as % of B-Cells: Cytoplasmic [place]/ CD20 = 49, CytoplasmicLambda/CD20 = 26Results: (expressed as % of total CD138+ plasma cell gate)CD38 = 64, CD56 = 40, CD38/56 = 37, CD19 = 12, CD20 = 5Cytoplasmic [place]/CD138 = 0, Cytoplasmic Lambda/CD138 = 67 Results- [...] were developed and theirperformance characteristics determined by [facility] Pathology department.They have not been cleared or approved by the US Food and DrugAdminis tration. The FDA has determined that such clearance or approval isnot necessary. Name Value Range Interpretation Code Description Data [place]iposa rce(s) Supporting Document(s) ID Date Data Source [id number] 10/24/2020 01:04:00 PM [facility] Cytogenetics ReportName: GELNNA HOODMRN: [id number] Number: [id number] Date: 10/15/2020 00:00Received Date: 10/16/2020 13:50Physician(s): ADJAPABDIAS SPICER MD ADJAPONG, OPOKU, MDSpecimen(s) ReceivedA: Bone Marrow - Karyo and Multiple Myel FISHClinical [id number] patient with multiple myeloma.TEST REQUESTED/PERFORMED: Chromosome analysis and fluorescence in situhybridization (FISH) DiagnosisFISH identified 11% of nuclei with gain of 1q; 11% with trisomy 5; and 10%with monosomy 13 in this plasma cell-enriched population of cells. FISHwas negative for gains or losses of chromosomes 7 and 9; deletions bz57w36.3 (IgH), and 17p13 (TP53); and an IgH [...] (1-3).Please correlate with the concurrent Hematopathology report, [id number]. References:1. Shagufta Li. 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 AtlasGenet Cytogenet Oncol Haematol. 1998;2(3):86-87.[email or web address]. Lastvisited .2. Delbert & Kentrell. Mature B- and T-cell neoplasms and Hodgkinlymphoma. In Cancer Cytogenetics: Chromosomal and Molecular GeneticAberrations of Tumor Cells, 4th Edition. Bharti & Yumiko, eds. Garcia &Sons, Ltd. 2015. 3. Tirso SV. Multiple myeloma: 2020 update on diagnosis,risk-stratification and management. Am J Hematol. 2020 95(11):1444. Electronically Signed By Cody Coppola, PhD Attending Pathologist 10/24/2020 13:04:45Gross DescriptionFluorescence in situ Hybridization (FISH)multiple myeloma FISH panel:nucish(TCTA6Ji9,CKS1Bx 3)[],(5p15.31,EGR1)x3[],(G88W462,13q34)x1[10/100],(IgHx2)[97/100],(T P53,D17Z1)x2[98/100] CEP 7/Q6Q496 (7q31):nuc danita(D7Z1,F4W182)x2[98/100] CEP 9:nuc danita(D9Z1x2)[98/100]DescriptionA plasma cell-enriched population evaluated [...] 11% 0% *CEP 7 (D7Z1) G LSI L5N176 (7q31) R 3% 100 2G2R: 98% 0% 2% CEP 9 (D9Z1) G 3%100 2% 0% 2% *LSI Z98U275 (13q14.2) O LSI 13q34 G 3% 100 2O2% 1O1% 3% *LSI IgH(14q32) Y BA 3% 100 2Y: 97% 0% 3% *LSI TP53 (17p13.1) O CEP 17 (D17Z1) G 3% 100 2O2% 0% 2% Vendor: *[employer] Probes: LSI: Locus Specific Probe; CEP: [...] rce(s) Supporting Document(s) ID Date Data Source [id number] 09/30/2020 12:28:00 PM EDT [facility] ([facility]) Name Value Range Interpretation Code Description Data [place]iposa rce(s) Supporting Document(s) Albumin [Mass/volume] in Serum or Plasma 3.0 [facility] ([facility]) Calcium [Mass/volume] in Serum or Plasma 10.2 [facility] ([facility]) Alanine aminotransferase [Enzymatic activity/volume] in Serum or Pl asma 19 [facility] (Cardiology [facility]) Carbon dioxide, total [Moles/volume] in Serum or Plasma 27 [facility] ([facility]) Chloride [Moles/volume] in Serum or Plasma 107 [facility] ([facility]) Potassium [Moles/volume] in Serum or Plasma 4.7 [facility] ([facility]) Alkaline phosphatase [Enzymatic activity/volume] in Serum or Plasma 7 7 [facility] ([facility]) Sodium 137 [facility] ([facility]iology [facility]) Protein [Mass/volume] in Serum or Plasma 8.3 [facility] ([facility]) Aspartate aminotransferase [Enzymatic activity/volume] in Serum or Plasma 23 [facility] ([facility]) Urea nitrogen [Mass/volume] in Serum or Plasma 28 [facility] ([facility]) Creatinine For GFR 0.90 [facility] ([facility]) Glucose 98 83-110 [facility] ID Date Data Source [id number] 09/30/2020 12:28:00 PM EDT [facility] ([facility]) Name Value Range Interpretation Code Description Data [place]ip[place] rce(s) Supporting Document(s) White Blood Count 6.2 5.0-10.0 [facility] ([facility]) Red Blood Count 3.76 4.00-5.40 [facility] ([facility]) Hemoglobin 12.5 [facility] ([facility]) Platelets 199 172-450 [facility] ([facility]) Hematocrit 39.0 [facility] ([facility]) ID Date Data Source [id number] 09/30/2020 12:03:00 PM EDT [facility] ([facility]) Name Value Range Interpretation Code Description Data [place] rce(s) Supporting Document(s) Prothrombin Time 13.8 s 12.5-14.3 [facility]) Inr 1.04 [facility] ([place] [facility]) THERAPUTIC HUMAN INR VALUES INDICATIONS NORMAL RANGES PROPHYLAXIS/TREATMENT OF: VENOUS THROMBOSIS 2.0-3.0 PULMONARY EMBOLISM 2.0-3.0 PREVENTION OF SYSTEMIC EMBOLISM FROM: TISSUE HEART VALVES 2.0-3.0 ACUTE MYOCARDIAL INFARCTION 2.0-3.0 VALVULAR HEART DISEASE 2.0-3.0 ATRIAL FIBRILLATION 2.0-3.0 MECHANICAL VALVES(HIGH RISK) 2.5-3.5 RECURRENT MYOCARDIAL INFARCTION 2.5-3.5 Partial Thromboplastin Time 30.6 s 24.2-38.5 [facility] ([facility]) ID Date Data Source [id number] 09/30/2020 10:38:00 AM EDT [facility] ([facility]) Name Value Range Interpretation Code Description Data [place] rce(s) Supporting Document(s) Glucose, Fasting 98 mg/dL 70-100 [facility] ([facility]) Blood Urea Nitrogen 28 mg/dL 7-18 [facility] ([facility]) Glomerular Filtration Rate Laboratory test result [facility] ([facility]) <content>Units are mL/min/1.73 m2</content>
<content></content>
<content>Chronic Kidney Disease Staging per NKF:</content>
<content></content>
<content>Stage I & II GFR >=60 Normal to Mildly Decreased</content>
<content>Stage III GFR 30- 59 Moderately Decreased</content>
<content>Stage IV GFR 15-29 Severely Decreased</content>
<content>Stage V GFR <15 Very Little GFR Left</content>
<content>ESRD GFR <15 on CAN WASHER</content>
<content></content> Creatinine For GFR 0.90 mg/dL 0.55-1.30 [facility] ([facility]) Sodium Level 137 meq/L 136-145 [facility] ([facility]) Chloride Level 107 meq/L 98-107 [facility] ([facility]) Potassium Serum 4.7 meq/L 3.5-5.1 [facility] ([facility]) Carbon Dioxide Level 27 meq/L 21-32 [facility] ([facility]) Anion Gap 3 meq/L 8-16 [facility] ([place] [facility]) Calcium Level 10.2 mg/dL 8.8-10.2 [facility] ([facility]) Ast/Sgot 23 U/L 7-37 [facility] ([place] [facility]) Alkaline Phosphatase 77 U/L 45-117 [facility] ([facility]) Alt/SGPT 19 U/L 12-78 [facility] ([place] [facility]) Bilirubin,Total 0.5 mg/dL 0.2-1.0 [facility] ([facility]) Total Protein 8.3 GM/DL 6.4-8.2 [facility] ([facility]) Albumin 3.0 GM/DL 3.2-5.2 [facility] ([place] [facility]) Albumin/Globulin Ratio 0.6 1.2-2.2 [facility] ([facility]) ID Date Data Source [id number] 09/30/2020 10:38:00 AM EDT [facility] ([facility]) Name Value Range Interpretation Code Description Data [place] rce(s) Supporting Document(s) White Blood Count 6.2 10 4.0-10.0 [facility] ([facility]) Red Blood Count 3.76 10 4.00-5.40 [facility] ([facility]) Hemoglobin 12.5 g/dL 12.0-15.5 [facility] ([place] [facility]) Mean Corpuscular Volume 103.7 fl 80.0-96.0 [facility] ([facility]) Hematocrit 39.0 % 36.0-47.0 [facility] ([facility]) Mean Corpuscular HGB Conc 32.1 g/dL 32.0-36.5 [facility] NT ([facility]) Mean Corpuscular Hemoglobin 33.2 pg 27.0-33.0 [facility] ([facility]) Platelet Count, Automated 199 10 150-450 [facility] NT ([facility]) Red Cell Distribution Width 12.9 % 11.5-14.5 [facility] ([facility]) Neutrophils % 74.5 % 36.0-66.0 [facility] ([facility]) Lymph % 16.4 % 24.0-44.0 [facility] [facility]) Morrison % 7.0 % 2.0-8.0 [facility] [facility]) Eos % 1.1 % 0.0-3.0 [facility] [facility]) Baso % 0.5 % 0.0-1.0 [facility] [facility]) Nucleated Red Blood Cell % 0.0 % 0-0 [facility] ([facility] [facility]) Immature Granulocyte % 0.5 % 0-3.0 [facility] ([facility]) Neutrophils # 4.6 10 1.5-8.5 [facility] ([facility]) Lymph # 1.0 10 1.5-5.0 [facility] [facility]) Morrison # 0.4 10 0.0-0.8 [facility] [facility]) Eos # 0.1 10 0.0-0.5 [facility] ([place] [facility]) Baso # 0.0 10 0.0-0.2 [facility] ([place] [facility]) ID Date Data Source [id number] 09/22/2020 02:06:00 PM EDT [facility] ([facility]) Name Value Range Interpretation Code Description Data [place] rce(s) Supporting Document(s) Thyrotropin [Units/volume] in Serum or Plasma by Detec tion limit <= 0.05 mIU/L 0.19 uIU/mL 0.36-3.74 [facility] ([facility] ) ID Date Data Source [id number] 09/22/2020 02:06:00 PM EDT [facility] ([facility]) Name Value Range Interpretation Code Description Data [place] rce(s) Supporting Document(s) Urea nitrogen [Mass/volume] in Serum or Plasma 18 mg/dL 7-18 [facility] ([facility]) Glucose [Mass/volume] in Serum or Plasma 100 mg/dL 74-99 [facility] ([facility]) 100-125 mg/dL PRE-DIABETES/FASTING >126 mg/dL DIABETES/FASTING Creatinine 0.8 mg/dL 0.6-1.3 [facility] ([facility]) Sodium [Moles/volume] in Serum or Plasma 141 meq/L 136-145 [facility] ([facility]) Potassium [Moles/volume] in Serum or Plasma 3.8 meq/L 3.5-5.1 [facility] ([facility]) Calcium [Mass/volume] in Serum or Plasma 10.8 mg/dL 8.5-10.1 [facility] ([facility]) NOTE: CALCIUM,TSH VERIFIED Carbon dioxide, total [Moles/volume] in Serum or Plasma 29 meq/L 21 -32 [facility] ([facility]) Chloride [Moles/volume] in Serum or Plasma 104 meq/L 98-107 [facility] ([facility]) Glomerular filtration rate/1.73 sq M pre dicted among non-blacks [Volume Rate/Area] in Serum or Plasma by Creatinine-based formula (MDRD) Laboratory test result [facility] ([facility] ) Glomerular filtration rate/1.73 sq M pre dicted among blacks [Volume Rate/Area] in Serum or Plasma by Creatinine-based formula (MDRD) Laboratory test result [facility] [facility] <content>CHRONIC KIDNEY DISEASE STAGING PER NKF</content>
<content></content>
<content>STAGE I & II GFR >= 60 NORMAL TO MILDLY DECREASED</content>
<content>STAGE III GFR 30-59 MODERATELY DECREASED</content>
<content>STAGE IV GFR 15-29 SEVERELY DECREASED</content>
<content>STAGE V GFR <15 VERY LITTLE GFR LEFT</content>
<content>ESRD GFR <15 ON CAN WASHER</content>
<content></content> ID Date Data Source [id number] 09/22/2020 02:06:00 PM EDT [facility] ([facility]) Name Value Range Interpretation Code Description Data [place] rce(s) Supporting Document(s) Erythrocyte sedimentation rate by Westergren method 25 mm/hr 0-15 [facility] [facility] ID Date Data Source [id number] 09/22/2020 02:06:00 PM EDT [facility] ([facility]) Name Value Range Interpretation Code Description Data [place] rce(s) Supporting Document(s) Leukocytes [#/volume] in Blood by Automated count 5.9 x10*3/UL 4.1-10 .9 [facility] ([facility]) Erythrocytes [#/volume] in Blood by Automated count 4.11 x10*6/UL 4.2 0-6.30 [facility] ([facility] [facility]) Hemoglobin [Mass/volume] in Blood 13.6 g/dL 12.0-18.0 [facility] ([facility] [facility]) MCV 97.4 fL 80.0-97.0 [facility] [facility] MCH 33.1 pg 26.0-32.0 [facility] [facility] Hematocrit [Volume Fraction] of Blood by Automated count 40.0 % 3 7.0-51.0 [facility] ([facility] [facility]) Platelets [#/volume] in Blood by Automated count 209 x10*3/UL 140-440 [facility] ([facility]) Erythrocyte distribution width [Ratio] by Automated count 13.2 % 11.6-13.7 [facility] ([facility]) MCHC 34.0 g/dL 31.0-38.0 [facility] ([place] [facility]) MPV 8.1 FL 7.8-11.0 [facility] ([place] [facility] Lymph % 25.6 % 10.0-58.5 [facility] ([place] [facility] Mid % 7.5 % 1.7-9.3 [facility] ([place] [facility] Neut % 66.9 % 37.0-92.0 [facility] ([facility]) Lymph # 1.5 x10*3/UL 0.6-4.1 [facility] ([facility]) Mid # 0.5 x10*3/UL 0.1-0.6 [facility] ([facility]) Neut # 3.9 x10*3/UL 2.0-7.8 [facility] ([facility]) ID Date Data Source [id number] 07/24/2020 01:37:00 PM EDT [facility] ([facility]) Name Value Range Interpretation Code Description Data [place] rce(s) Supporting Document(s) Digoxin [Mass/volume] in Serum or Plasma 0.3 ng/mL 0.5-2.0 [facility] [facility] <content>note:<nlbl:demographic_changed> </content>
<content></content> ID Date Data Source [id number] 07/24/2020 01:37:00 PM EDT [facility] ([facility]) Name Value Range Interpretation Code Description Data [place] rce(s) Supporting Document(s) Thyrotropin [Units/volume] in Serum or Plasma by Detec tion limit <= 0.05 mIU/L 0.32 uIU/mL 0.36-3.74 [facility] ([facility] ) ID Date Data Source [id number] 07/24/2020 01:37:00 PM EDT [facility] ([facility]) Name Value Range Interpretation Code Description Data [place] rce(s) Supporting Document(s) Cholesterol [Mass/volume] in Serum or Plasma 132 mg/dL 131-200 [facility] ([facility]) Cholesterol in HDL [Mass/volume] in Serum or Plasma 54 mg/dL 35-60 [facility] ([facility]) Cholesterol in LDL [Mass/volume] in Serum or Plasma by calcu lation 64 CALC 50-159 [facility] ([facility]) Triglyceride [Mass/volume] in Serum or Plasma 72 mg/dL 30-150 [facility] ([facility]) ID Date Data Source [id number] 07/24/2020 01:37:00 PM EDT [facility] ([facility]) Name Value Range Interpretation Code Description Data Mariposa rce(s) Supporting Document(s) Glucose [Mass/volume] in Serum or Plasma 70 mg/dL 74-99 [facility] ([facility]) 100-125 mg/dL PRE-DIABETES/FASTING >126 mg/dL DIABETES/FASTING Urea nitrogen [Mass/volume] in Serum or Plasma 23 mg/dL 7-18 [facility] ([facility]) Sodium [Moles/volume] in Serum or Plasma 144 meq/L 136-145 [facility] ([facility]) Creatinine 0.9 mg/dL 0.6-1.3 [facility] ([facility]) Carbon dioxide, total [Moles/volume] in Serum or Plasma 32 meq/L 21 -32 [facility] ([facility]) Potassium [Moles/volume] in Serum or Plasma 3.8 meq/L 3.5-5.1 [facility] ([facility]) Chloride [Moles/volume] in Serum or Plasma 104 meq/L 98-107 [facility] ([facility]) Glomerular filtration rate/1.73 sq M pre dicted among blacks [Volume Rate/Area] in Serum or Plasma by Creatinine-based formula (MDRD) Laboratory test result [facility] <content>CHRONIC KIDNEY DISEASE STAGING PER NKF</content>
<content></content>
<content>STAGE I & II GFR >= 60 NORMAL TO MILDLY DECREASED</content>
<content>STAGE III GFR 30-59 MODERATELY DECREASED</content>
<content>STAGE IV GFR 15-29 SEVERELY DECREASED</content>
<content>STAGE V GFR <15 VERY LITTLE GFR LEFT</content>
<content>ESRD GFR <15 ON CAN WASHER</content>
<content></content> Glomerular filtration rate/1.73 sq M pre dicted among non-blacks [Volume Rate/Area] in Serum or Plasma by Creatinine-based formula (MDRD) Laboratory test result [facility] Calcium [Mass/volume] in Serum or Plasma 10.1 mg/dL 8.5-10.1 [facility] ID Date Data Source [id number] 07/24/2020 01:37:00 PM EDT [facility] Name Value Range Interpretation Code Description Data [place]iposa rce(s) Supporting Document(s) Erythrocyte sedimentation rate by Westergren method 45 mm/hr 0-15 [facility] Magnesium 1.8 mg/dL 1.8-2.4 [facility] ([facility]) ID Date Data Source [id number] 07/24/2020 01:37:00 PM EDT [facility] Name Value Range Interpretation Code Description Data Mariposa rce(s) Supporting Document(s) Leukocytes [#/volume] in Blood by Automated count 8.4 x10*3/UL 4.1-10 .9 [facility] ([facility]) Erythrocytes [#/volume] in Blood by Automated count 4.20 x10*6/UL 4.2 0-6.30 [facility] ([facility]) Hemoglobin [Mass/volume] in Blood 14.0 g/dL 12.0-18.0 [facility] ([facility]) Hematocrit [Volume Fraction] of Blood by Automated count 40.3 % 3 7.0-51.0 [facility] MCV 95.8 fL 80.0-97.0 [facility] [facility]) MCH 33.3 pg 26.0-32.0 [facility] ([place] [facility]) Erythrocyte distribution width [Ratio] by Automated count 13.3 % 11.6-13.7 [facility] ([facility]) MCHC 34.7 g/dL 31.0-38.0 [facility] Lymph % 17.5 % 10.0-58.5 [facility] ([place] [facility]) Platelets [#/volume] in Blood by Automated count 207 x10*3/UL 140-440 [facility] ([facility]) MPV 8.0 FL 7.8-11.0 [facility] [facility] Neut % 77.7 % 37.0-92.0 [facility] [facility]) Mid % 4.8 % 1.7-9.3 [facility] ([place] [facility]) Lymph # 1.4 x10*3/UL 0.6-4.1 [facility] ([facility]) Mid # 0.5 x10*3/UL 0.1-0.6 [facility] ([facility]) Neut # 6.5 x10*3/UL 2.0-7.8 [facility] ([facility]) ID Date Data Source [id number] 07/24/2020 01:37:00 PM EDT [facility] ([facility]) Name Value Range Interpretation Code Description Data [place]ip[place] rce(s) Supporting Document(s) Thyrotropin [Units/volume] in Serum or Plasma by Detec tion limit <= 0.05 mIU/L 0.32 uIU/mL 0.36-3.74 [facility] ([facility]) Digoxin [Mass/volume] in Serum or Plasma 0.3 ng/mL 0.5-2.0 [facility] ([facility]) <content>note:<nlbl:demographic_changed></content>
<content></content>
< content></content> ID Date Data Source [id number] 07/24/2020 01:37:00 PM EDT [facility] ([facility]) Name Value Range Interpretation Code Description Data Marip[place] rce(s) Supporting Document(s) Cholesterol [Mass/volume] in Serum or Plasma 132 mg/dL 131-200 [facility] ([facility]) Triglyceride [Mass/volume] in Serum or Plasma 72 mg/dL 30-150 [facility] ([facility]) Cholesterol in HDL [Mass/volume] in Serum or Plasma 54 mg/dL 35-60 [facility] ([facility]) Cholesterol in LDL [Mass/volume] in Serum or Plasma by calcu lation 64 CALC 50-159 [facility] ([facility]) ID Date Data Source [id number] 07/24/2020 01:37:00 PM EDT [facility] ([facility]) Name Value Range Interpretation Code Description Data [place] rce(s) Supporting Document(s) Glucose [Mass/volume] in Serum or Plasma 70 mg/dL 74-99 [facility] ([facility]) 100-125 mg/dL PRE-DIABETES/FASTING >126 mg/dL DIABETES/FASTING Urea nitrogen [Mass/volume] in Serum or Plasma 23 mg/dL 7-18 [facility] ([facility]) Creatinine 0.9 mg/dL 0.6-1.3 [facility] ([facility]) Sodium [Moles/volume] in Serum or Plasma 144 meq/L 136-145 [facility] ([facility]) Potassium [Moles/volume] in Serum or Plasma 3.8 meq/L 3.5-5.1 [facility] ([facility]) Carbon dioxide, total [Moles/volume] in Serum or Plasma 32 meq/L 21 -32 [facility] ([facility]) Chloride [Moles/volume] in Serum or Plasma 104 meq/L 98-107 [facility] ([facility]) Calcium [Mass/volume] in Serum or Plasma 10.1 mg/dL 8.5-10.1 [facility] ([facility]) Glomerular filtration rate/1.73 sq M pre dicted among non-blacks [Volume Rate/Area] in Serum or Plasma by Creatinine-based formula (MDRD) Laboratory test result [facility] ([facility]) Glomerular filtration rate/1.73 sq M pre dicted among blacks [Volume Rate/Area] in Serum or Plasma by Creatinine-based formula (MDRD) Laboratory test result [facility] ([facility]) <content>CHRONIC KIDNEY DISEASE STAGING PER NKF</content>
<content></content>
<content>STAGE I & II GFR >= 60 NORMAL TO MILDLY DECREASED</content>
<content>STAGE III GFR 30-59 MODERATELY DECREASED</content>
<content>STAGE IV GFR 15-29 SEVERELY DECREASED</content>
<content>STAGE V GFR <15 VERY LITTLE GFR LEFT</content>
<content>ESRD GFR <15 ON CAN WASHER</content>
<content></content>
<content></content> ID Date Data Source [id number] 07/24/2020 01:37:00 PM EDT [facility] ([facility]) Name Value Range Interpretation Code Description Data Marip[place] rce(s) Supporting Document(s) Leukocytes [#/volume] in Blood by Automated count 8.4 x10*3/UL 4.1-10 .9 [facility] ([facility]) Erythrocytes [#/volume] in Blood by Automated count 4.20 x10*6/UL 4.2 0-6.30 [facility] ([facility]) Hemoglobin [Mass/volume] in Blood 14.0 g/dL 12.0-18.0 [facility] ([facility]) Hematocrit [Volume Fraction] of Blood by Automated count 40.3 % 3 7.0-51.0 [facility] ([facility]) MCV 95.8 fL 80.0-97.0 [facility] ([facility]) MCH 33.3 pg 26.0-32.0 [facility] ([facility]) Erythrocyte distribution width [Ratio] by Automated count 13.3 % 11.6-13.7 [facility] ([facility]) MCHC 34.7 g/dL 31.0-38.0 [facility] ([facility]) Platelets [#/volume] in Blood by Automated count 207 x10*3/UL 140-440 [facility] ([facility]) Platelet mean volume [Entitic volume] in Blood by Colten 8.0 FL 7.8-11.0 [facility] ([facility]) Lymphocytes/100 leukocytes in Blood by Automated count 17.5 % 10. 0-58.5 [facility] ([facility]) Mid % 4.8 % 1.7-9.3 [facility] ([facility]) Lymph # 1.4 x10*3/UL 0.6-4.1 [facility] ([facility]) Neut % 77.7 % 37.0-92.0 [facility] ([facility]) Neutrophils [#/volume] in Semen by Manual count 6.5 x10*3/UL 2.0-7.8 [facility] ([facility]) Mid # 0.5 x10*3/UL 0.1-0.6 [facility] ([facility]) ID Date Data Source [id number] 07/16/2020 02:59:00 PM EDT [facility] ([facility]) Name Value Range Interpretation Code Description Data Mariposa rce(s) Supporting Document(s) Free Lambda Light Chains Serum 517.2 mg/L 5.7-26.3 [facility] ([facility]) Free [place] Light Chains Serum 6.4 mg/L 3.3-19.4 [facility] ([facility]) [place]/Lambda Ratio Serum 0.01 0.26-1.65 [facility] [facility] ID Date Data Source [id number] 07/16/2020 02:59:00 PM EDT [facility] ([facility] Name Value Range Interpretation Code Description Data [place] rce(s) Supporting Document(s) Ferritin [Mass/volume] in Serum or Plasma 128 ng/mL 8-252 [facility] <content>note:<nlbl:demographic_changed> </content>
<content></content> Pfph-3-Zdoxdxepluvms [Mass/volume] in Serum or Plasma 3.7 mg/L 0.6- 2.4 [facility] ([facility]) Siemens Immulite 2000 Immunochemiluminom etric assay (ICMA) . Values obtained with different assay methods or kits cannot be used interchangeably. Results cannot be interpreted as absolute evidence of the presence or absence of malignant disease. Performed at: - [facility] [address] [id number] [place] Registration Specialist: Nataliya Owen MD, Phone: [phone] Performed at: - [facility] [address] [id number] [place] Registration Specialist: Aaliyah Posadas MD, Phone: [phone] ID Date Data Source [id number] 07/16/2020 02:59:00 PM EDT [facility] ([facility]) Name Value Range Interpretation Code Description Data [place] rce(s) Supporting Document(s) Immunotyping Serum Iga Laboratory test result [facility] ([facility]) Immunotyping Serum Lambda Laboratory test result [facility] ([facility]) Laboratory test finding (navigational concept) Laboratory test result [facility] ([facility]) REV'D BY O ADJAPONG It Serum Interpretation Laboratory test result [facility] ([facility]) MONOCLONAL IGA,LAMBDA ID Date Data Source [id number] 07/16/2020 02:59:00 PM EDT [facility] ([facility]) Name Value Range Interpretation Code Description Data [place] rce(s) Supporting Document(s) Immunoglobulin G 510 mg/dL [id number] [facility] ([facility]) Immunoglobulin A 2640.0 mg/dL 70-400 [facility] ([facility]) Immunoglobulin M Laboratory test result 40-230 [facility] ([facility]) ID Date Data Source [id number] 07/16/2020 02:59:00 PM EDT [facility] ([facility]) Name Value Range Interpretation Code Description Data [place] rce(s) Supporting Document(s) Iron (Fe) 131 ug/dL 50-170 [facility] [facility] Total Iron Binding Capacity 305 ug/dL 250-450 [place] [facility] ([facility]) Percent Saturation 43.0 % 13.2-45.0 [facility] ([facility]) ID Date Data Source [id number] 07/16/2020 02:59:00 PM EDT [facility] ([facility]) Name Value Range Interpretation Code Description Data [place]ip[place] rce(s) Supporting Document(s) Glucose, Fasting 97 mg/dL 70-100 [facility] ([facility]) Blood Urea Nitrogen 24 mg/dL 7-18 [facility] ([facility]) Creatinine For GFR 0.85 mg/dL 0.55-1.30 [facility] ([facility]) Glomerular Filtration Rate Laboratory test result [facility] ([facility]) <content>Units are mL/min/1.73 m2</content>
<content></content>
<content>Chronic Kidney Disease Staging per NKF:</content>
<content></content>
<content>Stage I & II GFR >=60 Normal to Mildly Decreased</content>
<content>Stage III GFR 30- 59 Moderately Decreased</content>
<content>Stage IV GFR 15-29 Severely Decreased</content>
<content>Stage V GFR <15 Very Little GFR Left</content>
<content>ESRD GFR <15 on CAN WASHER</content>
<content></content> Sodium Level 139 meq/L 136-145 [facility] ([facility]) Carbon Dioxide Level 26 meq/L 21-32 [facility] ([facility]) Potassium Serum 4.6 meq/L 3.5-5.1 [facility] ([facility]) Chloride Level 106 meq/L 98-107 [facility] ([facility]) Calcium Level 11.8 mg/dL 8.8-10.2 [facility] ([facility]) Anion Gap 7 meq/L 8-16 [facility] [facility]) Alt/SGPT 44 U/L 12-78 [facility] [facility]) Alkaline Phosphatase 116 U/L 45-117 [facility] ([facility]) Ast/Sgot 33 U/L 7-37 [facility] ([facility]) Bilirubin,Total 0.6 mg/dL 0.2-1.0 [facility] ([facility]) Total Protein 8.9 GM/DL 6.4-8.2 [facility] ([facility]) Albumin 3.2 GM/DL 3.2-5.2 [facility] [facility]) Albumin/Globulin Ratio 0.6 1.2-2.2 [facility] ([facility]) ID Date Data Source [id number] 07/16/2020 02:59:00 PM EDT [facility] ([facility]) Name Value Range Interpretation Code Description Data [place] rce(s) Supporting Document(s) Erythrocyte sedimentation rate by Westergren method 68 mm/hr 0-30 [facility] ([facility]) ID Date Data Source [id number] 07/16/2020 02:59:00 PM EDT [facility] ([facility]) Name Value Range Interpretation Code Description Data [place] rce(s) Supporting Document(s) White Blood Count 7.6 10 4.0-10.0 [facility] ([facility]) Red Blood Count 4.29 10 4.00-5.40 [facility] ([facility]) Hemoglobin 13.9 g/dL 12.0-15.5 [facility] ([facility]) Hematocrit 43.3 % 36.0-47.0 [facility] ([facility]) Mean Corpuscular Hemoglobin 32.4 pg 27.0-33.0 [place] [facility] ([facility]) Mean Corpuscular HGB Conc 32.1 g/dL 32.0-36.5 [facility] NT ([facility]) Mean Corpuscular Volume 100.9 fl 80.0-96.0 [facility] ([facility]) Red Cell Distribution Width 13.1 % 11.5-14.5 [facility] ([facility]) Platelet Count, Automated 175 10 150-450 [facility] NT ([facility]) Neutrophils % 73.1 % 36.0-66.0 [facility] ([facility]) Lymph % 18.1 % 24.0-44.0 [facility] [facility] Eos % 1.3 % 0.0-3.0 [facility] [facility]) Morrison % 6.8 % 2.0-8.0 [facility] [facility] Baso % 0.3 % 0.0-1.0 [facility] [facility] Immature Granulocyte % 0.4 % 0-3.0 [facility] ([facility]) Nucleated Red Blood Cell % 0.0 % 0-0 [facility] ([facility]) Neutrophils # 5.6 10 1.5-8.5 [facility] Lymph # 1.4 10 1.5-5.0 [facility] [facility]) Morrison # 0.5 10 0.0-0.8 [facility] ([place] [facility]) Eos # 0.1 10 0.0-0.5 [facility] ([place] [facility]) Baso # 0.0 10 0.0-0.2 [facility] ([facility]) ID Date Data Source [id number] 07/16/2020 02:59:00 PM EDT [facility] Name Value Range Interpretation Code Description Data [place] rce(s) Supporting Document(s) Appearance, Urine Laboratory test result [facility] [facility] PH,Urine 5.0 units 5.0-9.0 [facility] ([facility]) Color, Urine Laboratory test result [facility] [facility] Protein, Urine Auto Laboratory test result [facility] [facility] Specific [place] Urine Auto 1.028 1.002-1.035 [facility] [facility] Ketone, Urine Auto Laboratory test result [facility] [facility] Glucose, Urine (Ua) Auto Laboratory test result [facility] [facility] Urobilinogen, Urine Auto 4.0 mg/dL 0.0-2.0 [facility] ([place] [facility] Leukocyte Esterase, Urine Auto Laboratory test result [facility] ([facility]) Nitrite, Urine Auto Laboratory test result [facility] ([facility]) Bilirubin, Urine Auto Laboratory test result [facility] ([facility]) Blood, Urine Blood Laboratory test result [facility] [facility] WBC, Urine Auto 2 /HPF 0-3 [facility] ([facility]) Squamous Epithelial Cell Ur AU 0 /HPF 0-6 [facility] [facility] RBC, Urine Auto 2 /HPF 0-3 [facility] ([facility]) Bacteria, Urine Auto Laboratory test result [facility] ([facility]) Mucus, Urine Laboratory test result [facility] NT ([facility]) Hyaline Cast, Urine Auto 0 /LPF 0-1 [facility] T ([facility]) ID Date Data Source [id number] 06/19/2020 02:43:00 PM EDT [facility] ([facility]) Name Value Range Interpretation Code Description Data [place] rce(s) Supporting Document(s) 3D Bi-Lateral Mammogram Laboratory test result [facility] ([facility]) Dexa/Bone Density Laboratory test result [facility] ([facility]) ID Date Data Source [id number] 06/17/2020 02:26:00 PM EDT [facility] ([facility]) Name Value Range Interpretation Code Description Data [place] rce(s) Supporting Document(s) Albumin % 41.3 % 55.8-66.1 [facility] [facility]) Gumpw-7-Drbqqmdm % 3.8 % 2.9-4.9 [facility] Rlxrs-3-Xykvsrvoi % 8.9 % 7.1-11.8 [facility] ([facility]) Zbtr-6-Qeievhdfu % 5.8 % 4.7-7.2 [facility] ([facility]) Xcfr-7-Evxwgcaas % 35.2 % 3.2-6.5 [facility] ([facility]) Gamma Globulin % 5.0 % 11.1-18.8 [facility] ([facility]) Albumin 3.39 GM/DL 3.29-5.55 [facility] [facility] Izbcb-9-Nbakdutlj 0.31 GM/DL 0.17-0.41 [facility] Fnwsz-8-Ujatdsnqa 0.73 GM/DL 0.42-0.99 [facility] ([facility] Shpp-5-Zawqetfgc 0.48 GM/DL 0.28-0.60 [facility] Fqze-6-Sgqyacmyg 2.89 GM/DL 0.19-0.55 [facility] ([facility]) Total Protein 8.2 GM/DL 6.4-8.2 [facility] ([facility]) Gamma Globulins 0.41 GM/DL 0.65-1.58 [facility] ([facility]) Spep Interpretation Laboratory test result [facility] ([facility]) M-SPIKE NOTED IN BETA 2 REGION. CONCENTRATION = 2.85 GM/DL SUGGEST SERUM AND URINE IMMUNOTYPING. Laboratory test finding (navigational concept) Laboratory test result [facility] ([facility]) REV'D BY Delbert WERNER ID Date Data Source [id number] 06/17/2020 02:26:00 PM EDT [facility] ([facility]) Name Value Range Interpretation Code Description Data [place] rce(s) Supporting Document(s) Immunotyping Serum Iga Laboratory test result [facility] ([facility]) Immunotyping Serum Lambda Laboratory test result [facility] ([facility]) It Serum Interpret[facility] MONOCLONAL IGA LAMBDA Laboratory test finding (navigational concept) Laboratory test result [facility] ([facility]) ID Date Data Source [id number] 06/17/2020 02:25:00 PM EDT [facility] ([facility]) Name Value Range Interpretation Code Description Data [place] rce(s) Supporting Document(s) Glucose [Mass/volume] in Serum or Plasma 124 mg/dL 74-99 [facility] ([facility]) 100-125 mg/dL PRE-DIABETES/FASTING >126 mg/dL DIABETES/FASTING Urea nitrogen [Mass/volume] in Serum or Plasma 19 mg/dL 7-18 [facility] ([facility]) Creatinine 0.7 mg/dL 0.6-1.3 [facility] [facility] Sodium [Moles/volume] in Serum or Plasma 143 meq/L 136-145 [facility] ([facility]) Chloride [Moles/volume] in Serum or Plasma 103 meq/L 98-107 [facility] ([facility]) Potassium [Moles/volume] in Serum or Plasma 3.8 meq/L 3.5-5.1 [facility] ([facility]) Carbon dioxide, total [Moles/volume] in Serum or Plasma 29 meq/L 21 -32 [facility] ([facility]) Calcium [Mass/volume] in Serum or Plasma 10.2 mg/dL 8.5-10.1 [facility] ([facility]) NOTE: RESULT VERIFIED. Glomerular filtration rate/1.73 sq M pre dicted among non-blacks [Volume Rate/Area] in Serum or Plasma by Creatinine-based formula (MDRD) Laboratory test result [facility] ([facility] ) Glomerular filtration rate/1.73 sq M pre dicted among blacks [Volume Rate/Area] in Serum or Plasma by Creatinine-based formula (MDRD) Laboratory test result [facility] ([facility]) <content>CHRONIC KIDNEY DISEASE STAGING PER NKF</content>
<content></content>
<content>STAGE I & II GFR >= 60 NORMAL TO MILDLY DECREASED</content>
<content>STAGE III GFR 30-59 MODERATELY DECREASED</content>
<content>STAGE IV GFR 15-29 SEVERELY DECREASED</content>
<content>STAGE V GFR <15 VERY LITTLE GFR LEFT</content>
<content>ESRD GFR <15 ON CAN WASHER</content>
<content></content> ID Date Data Source [id number] 05/26/2020 11:17:00 AM EST [facility] ([facility]) Name Value Range Interpretation Code Description Data [place] rce(s) Supporting Document(s) Erythrocyte sedimentation rate by Westergren method 108 mm/hr 0-30 [facility] ([facility]) ID Date Data Source [id number] 05/26/2020 11:17:[address] [facility] Name Value Range Interpretation Code Description Data Mariposa rce(s) Supporting Document(s) White Blood Count 4.3 10 4.0-10.0 [facility] ([facility]) Hematocrit 39.3 % 36.0-47.0 [facility] ([facility]) Hemoglobin 12.4 g/dL 12.0-15.5 [facility] ([facility]) Red Blood Count 3.96 10 4.00-5.40 [facility] ([facility]) Mean Corpuscular Hemoglobin 31.3 pg 27.0-33.0 [facility] ([facility]) Mean Corpuscular Volume 99.2 fl 80.0-96.0 [facility] ([facility]) Mean Corpuscular HGB Conc 31.6 g/dL 32.0-36.5 MED[facility] NT ([facility]) Red Cell Distribution Width 13.2 % 11.5-14.5 [facility] ([facility]) Platelet Count, Automated 193 10 150-450 [facility] NT ([facility]) Neutrophils % 62.7 % 36.0-66.0 [facility] ([facility]) Morrison % 7.4 % 2.0-8.0 [facility] [facility] Lymph % 27.8 % 24.0-44.0 [facility] [facility] Baso % 0.5 % 0.0-1.0 [facility] [facility] Eos % 1.4 % 0.0-3.0 [facility] [facility] Neutrophils # 2.7 10 1.5-8.5 [facility] ([facility]) Nucleated Red Blood Cell % 0.0 % 0-0 MED ENT ([facility]) Immature Granulocyte % 0.2 % 0-3.0 [facility] ([facility]) Morrison # 0.3 10 0.0-0.8 [facility] [facility] Lymph # 1.2 10 1.5-5.0 [facility] [facility] Baso # 0.0 10 0.0-0.2 [facility] [facility] Eos # 0.1 10 0.0-0.5 [facility] [facility] ID Date Data Source [id number] 05/26/2020 11:17:00 AM EST [facility] ([facility]) Name Value Range Interpretation Code Description Data Mariposa rce(s) Supporting Document(s) C reactive protein [Mass/volume] in Serum or Plasma by High sensitivity method 0.52 mg/dL 0.00-0.30 [facility] ([facility] ) ID Date Data Source [id number] 05/26/2020 11:17:00 AM EST [facility] ([facility]) Name Value Range Interpretation Code Description Data [place] rce(s) Supporting Document(s) Glucose, Fasting 99 mg/dL 70-100 [facility] ([facility]) Creatinine For GFR 0.92 mg/dL 0.55-1.30 [facility] ([facility]) Blood Urea Nitrogen 29 mg/dL 7-18 [facility] ([facility]) Sodium Level 139 meq/L 136-145 [facility] ([facility]) Glomerular Filtration Rate Laboratory test result [facility] ([facility]) <content>Units are mL/min/1.73 m2</content>
<content></content>
<content>Chronic Kidney Disease Staging per NKF:</content>
<content></content>
<content>Stage I & II GFR >=60 Normal to Mildly Decreased</content>
<content>Stage III GFR 30- 59 Moderately Decreased</content>
<content>Stage IV GFR 15-29 Severely Decreased</content>
<content>Stage V GFR <15 Very Little GFR Left</content>
<content>ESRD GFR <15 on CAN WASHER</content>
<content></content> Potassium Serum 4.9 meq/L 3.5-5.1 [facility] ([facility]) Chloride Level 105 meq/L 98-107 [facility] ([facility]) Carbon Dioxide Level 26 meq/L 21-32 [facility] ([facility]) Anion Gap 8 meq/L 8-16 [facility] [facility] Calcium Level 10.8 mg/dL 8.8-10.2 [facility] ([facility]) ID Date Data Source [id number] 05/26/2020 11:17:00 AM EST [facility] ([facility]) Name Value Range Interpretation Code Description Data Mariposa rce(s) Supporting Document(s) aPTT in Blood by Coagulation assay 35.2 s 24.2-38.5 [facility] ([facility]) ID Date Data Source [id number] 05/26/2020 11:17:00 AM EST [facility] ([facility]) Name Value Range Interpretation Code Description Data [place] rce(s) Supporting Document(s) Inr 1.05 [facility] ([place] [facility]) THERAPUTIC HUMAN INR VALUES INDICATIONS NORMAL RANGES PROPHYLAXIS/TREATMENT OF: VENOUS THROMBOSIS 2.0-3.0 PULMONARY EMBOLISM 2.0-3.0 PREVENTION OF SYSTEMIC EMBOLISM FROM: TISSUE HEART VALVES 2.0-3.0 ACUTE MYOCARDIAL INFARCTION 2.0-3.0 VALVULAR HEART DISEASE 2.0-3.0 ATRIAL FIBRILLATION 2.0-3.0 MECHANICAL VALVES(HIGH RISK) 2.5-3.5 RECURRENT MYOCARDIAL INFARCTION 2.5-3.5 Prothrombin Time 13.9 s 12.5-14.3 [facility] ([facility]) ID Date Data Source [id number] 05/05/2020 01:39:00 PM EST [facility] ([facility]) Name Value Range Interpretation Code Description Data [place] rce(s) Supporting Document(s) Parathyrin.intact [Mass/volume] in Serum or Plasma 26.3 pg/mL 18.5-88 .0 [facility] ([facility]) ID Date Data Source [id number] 05/05/2020 01:39:00 PM EST [facility] ([facility]) Name Value Range Interpretation Code Description Data [place] rce(s) Supporting Document(s) Calcidiol [Mass/volume] in Serum or Plasma 32.7 24.0-80.0 [facility] ([facility]) This test was performed using [employer] I P Vitamin D immunoassay kit. Values obtained with different assay methods should not be used interchangeably. ID Date Data Source [id number] 05/05/2020 01:39:00 PM EST [facility] ([facility]) Name Value Range Interpretation Code Description Data [place] rce(s) Supporting Document(s) Thyrotropin [Units/volume] in Serum or Plasma by Detec tion limit <= 0.05 mIU/L 0.54 uIU/mL 0.36-3.74 [facility] ([facility] ) ID Date Data Source [id number] 05/05/2020 01:39:00 PM EST [facility] ([facility]) Name Value Range Interpretation Code Description Data [place] rce(s) Supporting Document(s) Glucose [Mass/volume] in Serum or Plasma 98 mg/dL 74-99 [facility] ([facility]) 100-125 mg/dL PRE-DIABETES/FASTING >126 mg/dL DIABETES/FASTING Urea nitrogen [Mass/volume] in Serum or Plasma 49 mg/dL 7-18 [facility] ([facility]) NOTE: BUN,CALCIUM VERIFIED Potassium [Moles/volume] in Serum or Plasma 4.5 meq/L 3.5-5.1 [facility] ([facility]) Creatinine 1.2 mg/dL 0.6-1.3 [facility] ([facility]) Sodium [Moles/volume] in Serum or Plasma 142 meq/L 136-145 [facility] ([facility]) Chloride [Moles/volume] in Serum or Plasma 104 meq/L 98-107 [facility] ([facility]) Carbon dioxide, total [Moles/volume] in Serum or Plasma 23 meq/L 21 -32 [facility] Glomerular filtration rate/1.73 sq M pre dicted among non-blacks [Volume Rate/Area] in Serum or Plasma by Creatinine-based formula (MDRD) 45 mL/min [facility] ([facility]) Calcium [Mass/volume] in Serum or Plasma 10.6 mg/dL 8.5-10.1 [facility] Glomerular filtration rate/1.73 sq M pre dicted among blacks [Volume Rate/Area] in Serum or Plasma by Creatinine-based formula (MDRD) 55 mL/min [facility] ([facility]) <content>CHRONIC KIDNEY DISEASE STAGING PER NKF</content>
<content></content>
<content>STAGE I & II GFR >= 60 NORMAL TO MILDLY DECREASED</content>
<content>STAGE III GFR 30-59 MODERATELY DECREASED</content>
<content>STAGE IV GFR 15-29 SEVERELY DECREASED</content>
<content>STAGE V GFR <15 VERY LITTLE GFR LEFT</content>
<content>ESRD GFR <15 ON CAN WASHER</content>
<content></content> ID Date Data Source [id number] 05/05/2020 01:39:00 PM EST [facility] ([facility]) Name Value Range Interpretation Code Description Data [place]ip[place] rce(s) Supporting Document(s) Hemoglobin [Mass/volume] in Blood 13.1 g/dL 12.0-18.0 [facility] ([facility]) Leukocytes [#/volume] in Blood by Automated count 5.8 x10*3/UL 4.1-10 .9 [facility] ([facility]) Erythrocytes [#/volume] in Blood by Automated count 4.01 x10*6/UL 4.2 0-6.30 [facility] ([facility]) Hematocrit [Volume Fraction] of Blood by Automated count 37.5 % 3 7.0-51.0 [facility] ([facility]) MCV 93.4 fL 80.0-97.0 [facility] ([place] [facility]) MCH 32.6 pg 26.0-32.0 [facility] ([place] [facility]) MCHC 34.9 g/dL 31.0-38.0 [facility] ([place] [facility]) Platelets [#/volume] in Blood by Automated count 191 x10*3/UL 140-440 [facility] ([facility]) MPV 8.6 FL 7.8-11.0 [facility] ([place] [facility]) Erythrocyte distribution width [Ratio] by Automated count 13.8 % 11.6-13.7 [facility] ([facility]) Mid % 6.7 % 1.7-9.3 [facility] ([place] [facility]) Lymph % 24.4 % 10.0-58.5 [facility] ([place] [facility]) Mid # 0.4 x10*3/UL 0.1-0.6 [facility] ([facility]) Neut % 68.9 % 37.0-92.0 [facility] [facility] Lymph # 1.4 x10*3/UL 0.6-4.1 [facility] ([facility]) Neut # 4.0 x10*3/UL 2.0-7.8 [facility] ([facility]) ID Date Data Source [id number] 02/14/2020 11:57:00 AM EST [facility] ([facility]) Name Value Range Interpretation Code Description Data [place] rce(s) Supporting Document(s) Inr 6.49 Above upper panic limits [facility] THERAPUTIC HUMAN INR VALUES INDICATIONS NORMAL RANGES PROPHYLAXIS/TREATMENT OF: VENOUS THROMBOSIS 2.0-3.0 PULMONARY EMBOLISM 2.0-3.0 PREVENTION OF SYSTEMIC EMBOLISM FROM: TISSUE HEART VALVES 2.0-3.0 ACUTE MYOCARDIAL INFARCTION 2.0-3.0 VALVULAR HEART DISEASE 2.0-3.0 ATRIAL FIBRILLATION 2.0-3.0 MECHANICAL VALVES(HIGH RISK) 2.5-3.5 RECURRENT MYOCARDIAL INFARCTION 2.5-3.5 Prothrombin Time 58.4 s 12.5-14.3 [facility] ([facility]) ID Date Data Source [id number] 02/14/2020 11:56:00 AM EST [facility] Name Value Range Interpretation Code Description Data [place] rce(s) Supporting Document(s) Leukocytes [#/volume] in Blood by Automated count 6.0 x10*3/UL 4.1-10 .9 [facility] ([facility]) Hemoglobin [Mass/volume] in Blood 13.0 g/dL 12.0-18.0 [facility] [facility] Erythrocytes [#/volume] in Blood by Automated count 4.11 x10*6/UL 4.2 0-6.30 [facility] ([facility]) MCV 91.1 fL 80.0-97.0 [facility] ([facility]) Hematocrit [Volume Fraction] of Blood by Automated count 37.5 % 3 7.0-51.0 [facility] ([facility]) MCH 31.6 pg 26.0-32.0 [facility] ([place] [facility]) MCHC 34.7 g/dL 31.0-38.0 [facility] ([facility]) Erythrocyte distribution width [Ratio] by Automated count 14.2 % 11.6-13.7 [facility] ([facility]) Platelets [#/volume] in Blood by Automated count 243 x10*3/UL 140-440 [facility] ([facility]) MPV 8.3 FL 7.8-11.0 [facility] [facility]) Lymph % 21.2 % 10.0-58.5 [facility] [facility]) Mid % 5.8 % 1.7-9.3 [facility] [facility] Lymph # 1.2 x10*3/UL 0.6-4.1 [facility] ([facility]) Neut % 73.0 % 37.0-92.0 [facility] [facility] Neut # 4.4 x10*3/UL 2.0-7.8 [facility] ([facility]) Mid # 0.4 x10*3/UL 0.1-0.6 [facility] ([facility]) ID Date Data Source [id number] 02/14/2020 11:29:00 AM EST [facility] ([facility]) Name Value Range Interpretation Code Description Data [place] rce(s) Supporting Document(s) INR in Platelet poor plasma by Coagulation assay 7.9 [facility] ([facility]) ID Date Data Source [id number] 02/14/2020 10:58:00 AM EST [facility] ([facility]) Name Value Range Interpretation Code Description Data [place] rce(s) Supporting Document(s) Glucose [Mass/volume] in Serum or Plasma 100 mg/dL 74-99 [facility] ([facility]) 100-125 mg/dL PRE-DIABETES/FASTING >126 mg/dL DIABETES/FASTING Urea nitrogen [Mass/volume] in Serum or Plasma 17 mg/dL 7-18 [facility] ([facility]) Creatinine 0.7 mg/dL 0.6-1.3 [facility] ([facility]) Sodium [Moles/volume] in Serum or Plasma 141 meq/L 136-145 [facility] ([facility]) Potassium [Moles/volume] in Serum or Plasma 4.4 meq/L 3.5-5.1 [facility] ([facility]) Chloride [Moles/volume] in Serum or Plasma 103 meq/L 98-107 [facility] ([facility]) Carbon dioxide, total [Moles/volume] in Serum or Plasma 24 meq/L 21 -32 [facility] ([facility]) Calcium [Mass/volume] in Serum or Plasma 10.2 mg/dL 8.5-10.1 [facility] ([facility]) NOTE: RESULT VERIFIED. Glomerular filtration rate/1.73 sq M pre dicted among non-blacks [Volume Rate/Area] in Serum or Plasma by Creatinine-based formula (MDRD) Laboratory test result [facility] Glomerular filtration rate/1.73 sq M pre dicted among blacks [Volume Rate/Area] in Serum or Plasma by Creatinine-based formula (MDRD) Laboratory test result [facility]) <content>CHRONIC KIDNEY DISEASE STAGING PER NKF</content>
<content></content>
<content>STAGE I & II GFR >= 60 NORMAL TO MILDLY DECREASED</content>
<content>STAGE III GFR 30-59 MODERATELY DECREASED</content>
<content>STAGE IV GFR 15-29 SEVERELY DECREASED</content>
<content>STAGE V GFR <15 VERY LITTLE GFR LEFT</content>
<content>ESRD GFR <15 ON CAN WASHER</content>
<content></content> ID Date Data Source [id number] 02/05/2020 11:20:00 AM EST [facility] Name Value Range Interpretation Code Description Data [place] rce(s) Supporting Document(s) INR in Platelet poor plasma by Coagulation assay 3.7 [facility] [facility] ID Date Data Source [id number] 01/31/2020 01:07:00 PM EDT [facility] Name Value Range Interpretation Code Description Data [place] rce(s) Supporting Document(s) INR in Platelet poor plasma by Coagulation assay 2.7 [facility] [facility] ID Date Data Source [id number] 01/31/2020 11:26:[address] [facility] Name Value Range Interpretation Code Description Data [place] rce(s) Supporting Document(s) Digoxin [Mass/volume] in Serum or Plasma 0.6 ng/mL 0.5-2.0 [facility] ([facility]) ID Date Data Source [id number] 01/31/2020 11:26:00 AM EDT [facility] ([facility]) Name Value Range Interpretation Code Description Data [place] rce(s) Supporting Document(s) Digoxin [Mass/volume] in Serum or Plasma 0.6 ng/mL 0.5-2.0 [facility] ([facility]) ID Date Data Source [id number] 01/31/2020 11:25:00 AM EDT [facility] ([facility]) Name Value Range Interpretation Code Description Data [place] rce(s) Supporting Document(s) Urine PH 6.5 units 5.0-9.0 [facility] [facility]) Urine Appearance Laboratory test result [facility] ([facility]) Urine Color Laboratory test result [facility] ([facility]) Urine Leukocytes Laboratory test result [facility] ([facility]) Specific gravity of Urine 1.010 1.005-1.030 [facility] ([facility]) Urine Protein Laboratory test result 0-0 [facility] ([facility]) Urine Blood Laboratory test result [facility] ([facility]) Urine Nitrite Laboratory test result [facility] ([facility]) Glucose [Presence] in Urine Laboratory test result [facility] ([facility]) Urine Ketone Laboratory test result [facility] ([facility]) Urine Urobilinogen 0.2 mg/dL 0.2-1.0 [facility] ([facility]) Bilirubin.total [Mass/volume] in Serum or Plasma Laboratory test resu lt [facility] ([facility]) ID Date Data Source [id number] 01/31/2020 11:25:00 AM EDT [facility] ([facility]) Name Value Range Interpretation Code Description Data [place] rce(s) Supporting Document(s) Thyrotropin [Units/volume] in Serum or Plasma by Detec tion limit <= 0.05 mIU/L 0.16 uIU/mL 0.36-3.74 [facility] ([facility] ) ID Date Data Source [id number] 01/31/2020 11:25:00 AM EDT [facility] ([facility]) Name Value Range Interpretation Code Description Data [place] rce(s) Supporting Document(s) Urea nitrogen [Mass/volume] in Serum or Plasma 17 mg/dL 7-18 [facility] ([facility]) Glucose [Mass/volume] in Serum or Plasma 101 mg/dL 74-99 [facility] ([facility]) 100-125 mg/dL PRE-DIABETES/FASTING >126 mg/dL DIABETES/FASTING Creatinine 0.7 mg/dL 0.6-1.3 [facility] ([facility]) Sodium [Moles/volume] in Serum or Plasma 143 meq/L 136-145 [facility] ([facility]) Chloride [Moles/volume] in Serum or Plasma 104 meq/L 98-107 [facility] ([facility]) Potassium [Moles/volume] in Serum or Plasma 4.0 meq/L 3.5-5.1 [facility] ([facility]) Carbon dioxide, total [Moles/volume] in Serum or Plasma 30 meq/L 21 -32 [facility] ([facility]) Calcium [Mass/volume] in Serum or Plasma 10.7 mg/dL 8.5-10.1 [facility] ([facility]) NOTE: RESULT VERIFIED. Glomerular filtration rate/1.73 sq M pre dicted among non-blacks [Volume Rate/Area] in Serum or Plasma by Creatinine-based formula (MDRD) Laboratory test result [facility] [facility] Glomerular filtration rate/1.73 sq M pre dicted among blacks [Volume Rate/Area] in Serum or Plasma by Creatinine-based formula (MDRD) Laboratory test result [facility] [facility] <content>CHRONIC KIDNEY DISEASE STAGING PER NKF</content>
<content></content>
<content>STAGE I & II GFR >= 60 NORMAL TO MILDLY DECREASED</content>
<content>STAGE III GFR 30-59 MODERATELY DECREASED</content>
<content>STAGE IV GFR 15-29 SEVERELY DECREASED</content>
<content>STAGE V GFR <15 VERY LITTLE GFR LEFT</content>
<content>ESRD GFR <15 ON CAN WASHER</content>
<content></content> ID Date Data Source [id number] 01/31/2020 11:25:00 AM EDT [facility] ([facility]) Name Value Range Interpretation Code Description Data [place] rce(s) Supporting Document(s) Magnesium 2.1 mg/dL 1.8-2.4 [facility] ([facility]) ID Date Data Source [id number] 01/31/2020 11:25:00 AM EDT [facility] ([facility]) Name Value Range Interpretation Code Description Data [place] rce(s) Supporting Document(s) Erythrocytes [#/volume] in Blood by Automated count 4.36 x10*6/UL 4.2 0-6.30 [facility] [facility] Leukocytes [#/volume] in Blood by Automated count 6.2 x10*3/UL 4.1-10 .9 [facility] [facility] Hemoglobin [Mass/volume] in Blood 13.8 g/dL 12.0-18.0 [facility] [facility] Hematocrit [Volume Fraction] of Blood by Automated count 40.7 % 3 7.0-51.0 [facility] ([facility]) MCH 31.6 pg 26.0-32.0 [facility] ([facility]) MCV 93.2 fL 80.0-97.0 [facility] ([facility]) MCHC 34.0 g/dL 31.0-38.0 [facility] ([facility]) Platelets [#/volume] in Blood by Automated count 236 x10*3/UL 140-440 [facility] [facility] Erythrocyte distribution width [Ratio] by Automated count 14.5 % 11.6-13.7 [facility] ([facility]) Lymph % 19.8 % 10.0-58.5 [facility] ([facility]) MPV 7.8 FL 7.8-11.0 [facility] ([place] [facility]) Mid % 5.7 % 1.7-9.3 [facility] [facility] Neut % 74.5 % 37.0-92.0 [facility] [facility] Lymph # 1.2 x10*3/UL 0.6-4.1 [facility] ([facility]) Neut # 4.6 x10*3/UL 2.0-7.8 [facility] ([facility]) Mid # 0.4 x10*3/UL 0.1-0.6 [facility] ([facility]) ID Date Data Source [id number] 01/31/2020 11:25:00 AM EDT [facility] ([facility]) Name Value Range Interpretation Code Description Data [place] rce(s) Supporting Document(s) Leukocytes [#/volume] in Blood by Automated count 6.2 x10*3/UL 4.1-10 .9 [facility] ([facility]) Hematocrit [Volume Fraction] of Blood by Automated count 40.7 % 3 7.0-51.0 [facility] ([facility]) Erythrocytes [#/volume] in Blood by Automated count 4.36 x10*6/UL 4.2 0-6.30 [facility] ([facility]) Hemoglobin [Mass/volume] in Blood 13.8 g/dL 12.0-18.0 [facility] ([facility]) MCHC 34.0 g/dL 31.0-38.0 [facility] ([facility] MCV 93.2 fL 80.0-97.0 [facility] ([facility] MCH 31.6 pg 26.0-32.0 [facility] ([facility] Erythrocyte distribution width [Ratio] by Automated count 14.5 % 11.6-13.7 [facility] ([facility]) Platelets [#/volume] in Blood by Automated count 236 x10*3/UL 140-440 [facility] ([facility]) Platelet mean volume [Entitic volume] in Blood by Colten 7.8 FL 7.8-11.0 [facility] ([facility]) Neut % 74.5 % 37.0-92.0 [facility] ([facility] Mid % 5.7 % 1.7-9.3 [facility] ([facility]) Lymphocytes/100 leukocytes in Blood by Automated count 19.8 % 10. 0-58.5 [facility] ([facility]) Neutrophils [#/volume] in Semen by Manual count 4.6 x10*3/UL 2.0-7.8 [facility] ([facility]) Mid # 0.4 x10*3/UL 0.1-0.6 [facility] ([facility]) Lymph # 1.2 x10*3/UL 0.6-4.1 [facility] ([facility]) ID Date Data Source [id number] 01/31/2020 11:24:00 AM EDT [facility] ([facility]) Name Value Range Interpretation Code Description Data [place] rce(s) Supporting Document(s) Thyroxine (T4) free [Mass/volume] in Serum or Plasma 1.33 ng/dL 0.76- 1.46 [facility] ([facility]) ID Date Data Source [id number] 01/28/2020 11:44:00 AM EDT [facility] ([facility]) Name Value Range Interpretation Code Description Data [place] rce(s) Supporting Document(s) INR in Platelet poor plasma by Coagulation assay 1.2 [facility] ([facility]) ID Date Data Source [id number] 01/24/2020 12:43:00 PM EDT [facility] ([facility]) Name Value Range Interpretation Code Description Data [place] rce(s) Supporting Document(s) INR in Platelet poor plasma by Coagulation assay 7.2 [facility] ([facility]) ID Date Data Source [id number] 01/24/2020 11:33:00 AM EDT [facility] ([facility]) Name Value Range Interpretation Code Description Data [place] rce(s) Supporting Document(s) Prothrombin Time 49.4 s 12.5-14.3 [facility] ([facility]) Inr 5.24 Above upper panic limits [facility] ([facility]) THERAPUTIC HUMAN INR VALUES INDICATIONS NORMAL RANGES PROPHYLAXIS/TREATMENT OF: VENOUS THROMBOSIS 2.0-3.0 PULMONARY EMBOLISM 2.0-3.0 PREVENTION OF SYSTEMIC EMBOLISM FROM: TISSUE HEART VALVES 2.0-3.0 ACUTE MYOCARDIAL INFARCTION 2.0-3.0 VALVULAR HEART DISEASE 2.0-3.0 ATRIAL FIBRILLATION 2.0-3.0 MECHANICAL VALVES(HIGH RISK) 2.5-3.5 RECURRENT MYOCARDIAL INFARCTION 2.5-3.5 ID Date Data Source [id number] 01/24/2020 11:33:00 AM EDT [facility] ([facility]) Name Value Range Interpretation Code Description Data [place] rce(s) Supporting Document(s) Erythrocytes [#/volume] in Blood by Automated count 4.37 x10*6/UL 4.2 0-6.30 [facility] ([facility]) Leukocytes [#/volume] in Blood by Automated count 6.6 x10*3/UL 4.1-10 .9 [facility] ([facility]) Hemoglobin [Mass/volume] in Blood 13.7 g/dL 12.0-18.0 [facility] ([facility]) Hematocrit [Volume Fraction] of Blood by Automated count 40.2 % 3 7.0-51.0 [facility] ([facility]) MCV 91.9 fL 80.0-97.0 [facility] [facility]) MCH 31.4 pg 26.0-32.0 [facility] ([place] [facility]) MCHC 34.2 g/dL 31.0-38.0 [facility] ([place] [facility]) Erythrocyte distribution width [Ratio] by Automated count 13.7 % 11.6-13.7 [facility] ([facility]) Platelets [#/volume] in Blood by Automated count 251 x10*3/UL 140-440 [facility] ([facility]) MPV 8.3 FL 7.8-11.0 [facility] [facility] Lymph % 16.8 % 10.0-58.5 [facility] [facility] Mid % 4.7 % 1.7-9.3 [facility] [facility] Lymph # 1.1 x10*3/UL 0.6-4.1 [facility] ([facility]) Neut % 78.5 % 37.0-92.0 [facility] [facility] Mid # 0.3 x10*3/UL 0.1-0.6 [facility] ([facility]) Neut # 5.2 x10*3/UL 2.0-7.8 [facility] ([facility]) ID Date Data Source [id number] 01/17/2020 12:07:00 PM EDT [facility] ([facility]) Name Value Range Interpretation Code Description Data [place] rce(s) Supporting Document(s) INR in Platelet poor plasma by Coagulation assay 1.3 [facility] ([facility]) ID Date Data Source [id number] 12/14/2019 12:44:00 PM EDT [facility] ([facility]) Name Value Range Interpretation Code Description Data [place] rce(s) Supporting Document(s) INR in Platelet poor plasma by Coagulation assay 3.7 [facility] ID Date Data Source [id number] 12/05/2019 03:27:00 PM EDT [facility] ([facility]) Name Value Range Interpretation Code Description Data [place] rce(s) Supporting Document(s) INR in Platelet poor plasma by Coagulation assay 1.3 [facility]) Procedure Social History Code Duration Value Status Description Data Source(s ) Smoking 01/22/2021 12:00:00 AM EDT Current Smoker completed Curre nt Smoker eCW1 ([facility]) Vital Signs ID Date Data Source UNK Name Value Range Interpretation Code Description Data Source(s) Systolic blood pressure 122 mm[Hg] 122 mm[Hg] M [facility] ([facility]) Diastolic blood pressure 76 mm[Hg] 76 mm[Hg] [facility] ([facility]) Heart rate 86 /min 86 /min [facility] ([facility]) Body height 66 [in_i] [facility] Body weight 223.00 [lb_av] 223.00 [lb_av] [facility] T ([facility]) Body mass index (BMI) [Ratio] 36.0 kg/m2 36.0 k g/m[facility] Diastolic blood pressure 68 mm[Hg] 68 mm[Hg] [facility] ([facility]) Heart rate 86 /min 86 /min [facility] ([facility]) Systolic blood pressure 124 mm[Hg] 124 mm[Hg] [facility] Body height 66 [in_i] 66 [in_i] [facility] ([facility]) 5'6" Body weight 217.00 [lb_av] 217.00 [lb_av] [facility] T ([facility]) Body mass index (BMI) [Ratio] 35.0 kg/m2 35.0 k g/m2 [facility] ([facility]) Systolic blood pressure 114 mm[Hg] 114 mm[Hg] [facility] ([facility]) Diastolic blood pressure 76 mm[Hg] 76 mm[Hg] [facility] ([facility]) Body height 66 [in_i] 66 [in_i] [facility] ([facility]) 5'6" Body weight 221.50 [lb_av] 221.50 [lb_av] [facility] T ([facility]) Body mass index (BMI) [Ratio] 35.7 kg/m2 35.7 k g/m2 [facility] ([facility]) [place] body weight 130 [lb_av] 130 [lb_av] [facility] Body weight 100.472 kg 100.472 kg [facility] ([facility]) Body surface area Derived from formula 2.09 m2 2.09 m2 [facility] ([facility]) Systolic blood pressure 136 mm[Hg] 136 mm[Hg] [facility] RT Arm Diastolic blood pressure 88 mm[Hg] 88 mm[Hg] [facility] ([facility]) RT Arm Heart rate 120 /min 120 /min [facility] ([facility]) Body height 66 [in_i] 66 [in_i] [facility] ([facility]) 5'6" Body weight 223.50 [lb_av] 223.50 [lb_av] [facility] ([facility]) Body mass index (BMI) [Ratio] 36.1 kg/m2 36.1 k g/m2 [facility] ([facility]) [place] body weight 130 [lb_av] 130 [lb_av] [facility] T ([facility]) Body height 66 [in_i] 66 [in_i] [facility] ([facility]) 5'6" Body weight 102.060 kg 102.060 kg [facility] ([facility]) Body mass index (BMI) [Ratio] 36.3 kg/m2 36.3 k g/m2 [facility] ([facility]) Body surface area Derived from formula 2.10 m2 2.10 m2 [facility] ([facility]) Diastolic blood pressure 77 mm[Hg] 77 mm[Hg] [facility] ([facility]) Body weight 225.00 [lb_av] 225.00 [lb_av] [facility] T ([facility]) Systolic blood pressure 145 mm[Hg] 145 mm[Hg] [facility] Systolic blood pressure 148 mm[Hg] 148 mm[Hg] [facility]) RT Arm Diastolic blood pressure 72 mm[Hg] 72 mm[Hg] [facility] ([facility]) RT Arm Systolic blood pressure 140 mm[Hg] 140 mm[Hg] M [facility] ([facility]) Diastolic blood pressure 70 mm[Hg] 70 mm[Hg] [facility] ([facility]) Heart rate 80 /min 80 /min [facility] ([facility]) Body height 66 [in_i] 66 [in_i] [facility] ([facility]) 5'6" Body weight 219.00 [lb_av] 219.00 [lb_av] [facility] T ([facility]) Body mass index (BMI) [Ratio] 35.3 kg/m2 35.3 k g/m2 [facility] ([facility]) Body weight 190.00 [lb_av] 190.00 [lb_av] [facility] T ([facility] ) Body height 66 [in_i] 66 [in_i] [facility] ([facility] ) 5'6" Body mass index (BMI) [Ratio] 30.7 kg/m2 30.7 k g/m2 [facility] ([facility] ) Body mass index (BMI) [Ratio] 35.7 kg/m2 35.7 k g/m2 [facility] ([facility] ) Body temperature 96.1 [degF] 96.1 [degF] [facility] ([facility] ) Body height 64.5 [in_i] 64.5 [in_i] [facility] ([facility] ) 5'4.50" Body weight 211.50 [lb_av] 211.50 [lb_av] [facility] T ([facility]) Systolic blood pressure 142 mm[Hg] 142 mm[Hg] [facility] Body weight 222.00 [lb_av] 222.00 [lb_av] [facility] T ([facility]) Systolic blood pressure 154 mm[Hg] 154 mm[Hg] [facility]) RT Arm Diastolic blood pressure 78 mm[Hg] 78 mm[Hg] [facility]) RT Arm Diastolic blood pressure 80 mm[Hg] 80 mm[Hg] [facility] ([facility]) Heart rate 96 /min 96 /min [facility] ([facility]) Body height 66 [in_i] 66 [in_i] [facility] ([facility]) 5'6" Body mass index (BMI) [Ratio] 35.8 kg/m2 35.8 k g/m2 [facility]) Systolic blood pressure 164 mm[Hg] 164 mm[Hg] [facility] Diastolic blood pressure 90 mm[Hg] 90 mm[Hg] [facility] ([facility], ) Body height 66 [in_i] 66 [in_i] [facility] ([facility], ) 5'6" Body weight 225.00 [lb_av] 225.00 [lb_av] [facility] T ([facility], ) Body mass index (BMI) [Ratio] 36.3 kg/m2 36.3 k g/m2 [facility], ) [place] body weight 130 [lb_av] 130 [lb_av] [facility] T ([facility], ) Body weight 102.060 kg 102.060 kg [facility] ([facility], ) Body surface area Derived from formula 2.10 m2 2.10 m2 [facility] ([facility], ) Body weight 220.00 [lb_av] 220.00 [lb_av] [facility] T ([facility]) Body height 65 [in_i] 65 [in_i] [facility] 5'5" Body mass index (BMI) [Ratio] 36.6 kg/m2 36.6 k g/m2 [facility] ([facility]) Heart rate 65 /min 65 /min [facility]) Systolic blood pressure--sitting 136 mm[Hg] 136 mm[Hg] [facility] ([facility]) Ra, large cuff Diastolic blood pressure--sitting 84 mm[Hg] 84 mm[Hg] [facility] ([facility]) Ra, large cuff Body height 66 [in_i] 66 [in_i] [facility] ([facility] ) 5'6" Body weight 221.00 [lb_av] 221.00 [lb_av] [facility] T ([facility]) Body mass index (BMI) [Ratio] 35.7 kg/m2 35.7 k g/m2 [facility]) Diastolic blood pressure 70 mm[Hg] 70 mm[Hg] [facility] ([facility]) RT Arm Heart rate 60 /min 60 /min [facility] ([facility]) Body height 66 [in_i] 66 [in_i] [facility] ([facility]) 5'6" Body mass index (BMI) [Ratio] 35.7 kg/m2 35.7 k g/m2 [facility] ([facility]) Systolic blood pressure 148 mm[Hg] 148 mm[Hg] M [facility] ([facility]) RT Arm Body weight 221.00 [lb_av] 221.00 [lb_av] [facility] T ([facility]) Body weight 226.00 [lb_av] 226.00 [lb_av] [facility] T ([facility]) Body mass index (BMI) [Ratio] 36.5 kg/m2 36.5 k g/m2 [facility] ([facility]) Systolic blood pressure 138 mm[Hg] 138 mm[Hg] M [facility] ([facility]) Body weight 226.00 [lb_av] 226.00 [lb_av] SAY Guerrier ([facility]) Diastolic blood pressure 90 mm[Hg] 90 mm[Hg] SUMAYA ([facility]) Body height 66 [in_i] 66 [in_i] SU[facility] ([facility]) 5'6" Body weight 217.00 [lb_av] 217.00 [lb_av] [facility] T ([facility]) Body weight 220.00 [lb_av] 220.00 [lb_av] [facility] T ([facility]) Body weight 216.00 [lb_av] 216.00 [facility]lb[facility]av] [facility]
--- NOTE | 2021-01-27 16:05 | ECGEPIP ---
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
[2021-01-27] MEDS ORDERED: ISOVUE-370 76% 100ML VIAL As Ordered ONE (16:16)
--- NOTE | 2021-01-27 16:43 | REP ---
INDICATION: SOB; r/o PE COMPARISON: Multiple the latest 08/14/2020 a noncontrast enhanced standard CT. TECHNIQUE: CT angiography of the chest attention pulmonary arteries after the intravenous administration of 75 cc Isovue 370. FINDINGS: There is excellent visualization of the pulmonary arterial vasculature. There are no focal filling defects present that would be considered consistent with acute pulmonary emboli. There are no pleural or pericardial effusions. There is no significant change in appearance of the imaged upper abdomen or imaged osseous structures. There is bilateral low-density adrenal gland thickening status quo. There is no mediastinal or hilar adenopathy, however, note is again made of bulky thyromegaly. There is a borderline right hilar lymph node with a short axis dimension of 1 cm. This cannot be compared to the latest prior exam since no intravenous contrast was administered for that exam. When compared to the next latest prior CT of the chest which was obtained after intravenous contrast this lymph node is unchanged. That examination is dated 02/22/2019. Evaluation of the lung [place] shows a few scattered bibasilar asymmetric densities likely subsegmental atelectatic changes. No new abnormal patchy opacities have developed. Scattered subsegmental atelectatic changes are seen throughout the lung [place]. IMPRESSION: There is no evidence of acute disease. Findings as described above. <Electronically signed by Pawel Sanchez > 01/27/21 [id number]
[2021-01-27] MEDS ORDERED: FUROSEMIDE 40MG/4ML VIAL (J1940) IV ONE (16:50)
[2021-01-27] MEDS ORDERED: MOM 30ML SUSPENSION UDC PO PRN (17:50)
--- OUTSIDE RECORDS SUMMARY | 2021-01-27 18:27 | CCD ---
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 Name Role Phone Asim Sharma MD Unavailable [...] B Jean Carlos GUIDRY Unavailable Unavailable Fish, [facility], PA-C Unavailable Unavailabl e Fish, [facility], PA-C Unavailable Unavailabl e Fish, [facility], PA-C Unavailable Unavailabl e Fish, [facility], PA-C Unavailable Unavailabl e Fish, [facility], PA-C Unavailable Unavailabl e Fish, [facility], PA-C Unavailable Unavailabl e Fish, [facility], PA-C Unavailable Unavailabl e Fish, [facility], PA-C Unavailable Unavailabl e Fish, [facility], PA-C Unavailable Unavailabl e Fish, [facility], PA-C Unavailable Unavailabl e Fish, [facility], PA-C Unavailable Unavailabl e Fish, [facility], PA-C Unavailable Unavailabl e Fish, [facility], PA-C Unavailable Unavailabl e Fish, [facility], PA-C Unavailable Unavailabl e Fish, [facility], PA-C Unavailable Unavailabl e Fish, [facility], PA-C Unavailable Unavailabl e Fish, [facility], PA-C Unavailable Unavailabl e Fish, [facility], PA-C Unavailable Unavailabl e Fish, [facility], PA-C Unavailable Unavailabl e Fish, [facility], PA-C Unavailable Unavailabl e Fish, [facility], PA-C Unavailable Unavailabl e Fish, [facility], PA-C Unavailable Unavailabl e Fish, [facility], PA-C Unavailable Unavailabl e Fish, [facility], PA-C Unavailable Unavailabl e Fish, [facility], PA-C Unavailable Unavailabl e Fish, [facility], PA-C Unavailable Unavailabl e Fish, [facility], PA-C Unavailable Unavailabl e Fish, [facility], PA-C Unavailable Unavailabl e Fish, [facility], PA-C Unavailable Unavailabl e Fish, [facility], PA-C Unavailable Unavailabl e Fish, [facility], PA-C Unavailable Unavailabl e Fish, [facility], PA-C Unavailable Unavailabl e Fish, [facility], PA-C Unavailable Unavailabl e Fish, [facility], PA-C Unavailable Unavailabl e Fish, [facility], PA-C Unavailable Unavailabl e Fish, [facility], PA-C Unavailable Unavailabl e Asim KESSLER JR, PA-C Unavailable Unavailable PICKERAL Asim DOTY PA-C Unavailable Unavailable PICKERAL JRAsim PA-C Unavailable Unavailable PICKERAL Asim DOTY PA-C Unavailable Unavailable Asim KESSLER JR, PA-C Unavailable Unavailable PICKAsim SOLARES JR, PA-C Unavailable Unavailable PICKAsim SOLARES JR, PA-C Unavailable Unavailable PICKERAL Asim DOTY PA-C Unavailable Unavailable PICKERAL JR, J DIONISIO [...] Unavailable David Sprague MD Unavailable Unavailable David Sprageu MD Unavailable Unavailable David Sprague MD Unavailable [...] Unavailable David Sprague MD Unavailable Unavailable David Spargue MD Unavailable Unavailable David Sprague MD Unavailable [...] MD Unavailable Unavailable DarcieDavid MD Unavailable Unavailable BRINDA, L ADAIR PA [...] is protected by Article 27-F of the [facility] Public Health law. If you continue you may have access to information: Regarding HIV / AIDS; Provided by facilities licensed or operated by the [facility] Office of Mental Health; or Provided by the [facility] Office for People With Developmental Disabilities. If such information is present, then the following [facility] mandated warning applies: This information has [...] law may result in a fine or shelter sentence or both. A general authorization for the release of medical or other information is NOT sufficient authorization for further disc losure. Allergies and Adverse Reactions Type Description Substance Reaction Status Data Source(s ) Drug Allergy Drug Allergy NKDA MED[facility] ([facility], ) Family History Family Member Name Family Member Gender Family Member Status Date o f Status Description Data Source(s) Unknown Male Problem [facility] ([facility]) Unknown Male Problem [facility] ([facility]) Encounters Encounter Providers Location Date Indications Data Source(s ) Unknown [id number] [facility] [address] 01/22/2021 12:00:00 AM EDT eCW1 ([facility]) Outpatient Attender: DIONISIO French 1 02:20:00 PM EDT MEDENT ([facility] ) Outpatient Admitter: ABDIASFER WERNERReferrer: ABDIASFER WERNER 10/15/2020 12:00:00 AM EDT Multiple myeloma not having achieved remission [facility] Multiple myeloma not having achieved rem ission Outpatient Attender: Callie Marrufo RPA [place] e[place]l 09/29/2020 10:15:00 AM EDT [facility] ([facility]) Outpatient Attender: Zehra French 01:30:00 PM EDT MED[facility] ([facility] ) Outpatient Attender: Callie Marrufo RPA [place]mi/R eindl 09/11/2020 10:45:00 AM EDT MED[facility] ([facility]) Outpatient Attender: Zehra French 01:30:00 PM EDT MED[facility] ([facility] ) Outpatient Attender: Jarek Sharma MD [...] Attender: Zehra French 02:30:00 PM EDT MED[facility] ([facility] ) Outpatient Attender: Callie Marrufo RPA [place]mi/R eindl 06/12/2020 09:15:00 AM EST MED[facility] ([facility]) Outpatient Attender: ADAIR NGUYEN Main Office 05/27/2020 1 1:45:00 AM EST MED[facility] ([facility]) Outpatient Attender: Zehra Cooperall 12:00:00 PM EST MED[facility] ([facility] ) Outpatient Attender: Zehra French 10:30:00 AM EDT MED[facility] ([facility] ) Immunizations Vaccine Date Status Description Data Source(s) Influenza, injectable, MDCK, preservative free, mima valent 01/07/2021 02:31:00 PM EDT completed [facility]) Influenza, injectable, MDCK, preservative free, mima valent 01/17/2020 12:10:00 PM EDT completed MED[facility] ([facility]) Medications Medication Brand Name Start Date Product [...] EDT ORAL active [facility] ([facility]) Administration Of Flu Vaccine 01/07/2021 12:00:00 AM EDT completed MED[facility] ([facility]) Medication administered onsite 2 ML Sodium Hyaluronate [...] 06/18/2020 12:00:00 AM EDT activ e MEDENT ([facility]) 20 mg 06/18/2020 12:00:00 AM EDT [...] 06/17/2020 12:00:00 AM EDT ORAL active MED[facility] ([facility]) Furosemide 20 MG Oral Tablet Furosemide 06/17/2020 12:00:00 AM EDT ORAL active MED[facility] ([facility]) 5 mg 06/16/2020 12:00:00 AM EDT [...] ORAL active [facility] ([facility] 24 HR Bupropion Hydrochloride 150 [...] 12:00:00 AM EST ORAL a ctive MED[facility] ([facility]) 5 mg 03/15/2020 12:00:00 AM EST [...] 12:00:[address] ORAL active MED[facility] ([facility]) apixaban 5 MG Oral Tablet [Eliquis] Eliquis 02/18/2020 12:00:[address] ORAL active MED[facility] ([facility]) Administration Of Flu Vaccine 01/17/2020 12:00:00 AM EDT completed [facility] ([facility]) Medication administered onsite 20 mg 11/07/2019 12:00:00 [...] relationship to godwin Policy Godwin Plan Information [place] [employer] ([facility]) [facility] Part B [id number] Family Dependent [id number] [place] [employer] [facility]) [facility] Part B [id number] Family Dependent [id number] [place] [employer] [facility] Part B [id number] Family Dependent [id number] Medicare Natl Govt Serv Medicare Primary [id number] Self [id number] Medicare Natl Govt [facility] Medicare Primary [id number] Self [id number] [place] [id number] Self [id number] Medicare Natl Govt [facility] Medicare Primary [id number] Self [id number] MEDICARE A [id number] Self [id number] Medicare Natl Govt [facility] Medicare Primary [id number] Self [id number] Medicare Natl Govt Serv Medicare Primary [id number] [id number] Self [id number] Medicare Natl Govt Serv Medicare Primary [id number] [id number] Self [id number] [place] Primary [id number] [id number] Self [id number] Medicare Natl Govt Serv Medicare Primary [id number] [id number] Self [id number] Medicare Natl Govt Serv Medicare Primary [id number] Self [id number] Medicare Natl Govt Servic Medicare Primary [id number] [id number] Self [id number] Medicare Natl Govt Serv Medicare Primary [id number] [id number] Self [id number] Medicare Natl Govt Serv Medicare Primary [id number] Self [id number] Medicare Natl Govt Servic Medicare Primary [id number] Self [id number] Medicare Natl Govt Servic Medicare Primary [id number] [id number] Self [id number] [place] Primary [id number] [id number] Self [id number] FOR LIFE U [id number] Self [id number] WPS For Life Medigap Part B [id number] Family Dependent [id number] FOR LIFE [id number] SP [id number] MEDICARE C [id number] S [id number] FOR LIFE O [id number] S [id number] WPS For Life Medigap Part B [id number] Family Dependent [id number] WPS For Life Medigap Part B [id number] Family Dependent [id number] WPS For Life Medigap Part B [id number] Family Dependent [id number] WPS For Life Medigap Part B [id number] Family Dependent [id number] WPS For Life Medigap Part B [id number] Family Dependent [id number] WPS For Life Medigap Part B [id number] [id number] Family Dependent [id number] WPS For Life Medigap Part B [id number] [id number] Family Dependent [id number] WPS For Life Medigap Part B [id number] Family Dependent [id number] WPS For Life Medigap Part B [id number] Family Dependent [id number] MEDICARE [id number] SP [id number] A MEDICARE C [id number] S [id number] A S [facility] C [id number] S [id number] WPS For Life Medigap Part B [id number] Family Dependent [id number] MEDICARE [id number] SP [id number] [id number] WPS For Life Medigap Part B [id number] Family Dependent [id number] WPS For Life Medigap Part B [id number] Family Dependent [id number] Problems, Conditions, and Diagnoses Code Display Name Description Problem Type Effective Dates Data Source(s) C90.00 Multiple myeloma not having achieved rem ission Multiple myeloma not having achieved remission Diagnosis 10/15/2020 01:43:00 PM EDT [facility] I87.312 [id number] 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 Problem 01/22/2021 12:00:00 AM EDT eCW1 ([facility]) L97.822 [id number] Non-pressure chronic ulcer of other part of left lower leg with fat layer exposed Problem 01/22/2021 12:00:00 AM EDT eCW1 ([facility]) I27.81 Chronic cor pulmonale Chronic cor pulmonale Problem 11/24/2020 12:00:00 AM EDT MEDENT ([facility]) I65.29 Carotid artery occlusion Carotid artery occlusion Prob muriel 05/27/2020 12:00:00 AM EST MED[facility] ([facility]) I82.503 Deep venous thrombosis of lower extremit y Deep venous thrombosis of lower extremity Problem 05/27/2020 12:00:00 AM EST [facility] ([facility]) E78.2 Mixed hyperlipidemia Mixed hyperlipidemia Problem 05/27/2020 12:00:00 AM EST [facility] ([facility]) Surgeries/Procedures Procedure Description Date Indications Data Source(s) OFFICE OUTPATIENT VISIT 15 MINUTES 01/07/2021 12:00:00 AM EDT MEDSOLIT[facility]IO ([facility]) Complex Chronic Care Management SVC 1St 60 Min 021 12:00:00 AM EDT [facility] ([facility]) Complex Chronic Care MGMT Service Ea Addl 30 Min 01/01 12:00:00 AM EDT [facility] ([facility]) ECG ROUTINE ECG W/LEAST 12 LDS W/I&R 12/05/2020 12:00: 00 AM EDT [facility] ([facility]) OFFICE OUTPATIENT VISIT 25 MINUTES 12/05/2020 12:00:00 AM EDT [facility] ([facility]) ECG ROUTINE ECG W/LEAST 12 LDS W/I&R 11/24/2020 12:00: 00 AM EDT [facility] ([facility]) OFFICE OUTPATIENT VISIT 25 MINUTES 11/24/2020 12:00:00 AM EDT [facility] ([facility]) Chronic Care Management Services Ea Addl 20 Min 2020 12:00:00 AM EDT [facility]SOL[facility] ([facility]) Chronic Care MGMT 20 Mins Clinical Staff Time Per Calendar [facility] 11/14/2020 12:00:00 AM EDT [facility] ([facility] ) Complex Chronic Care Management SVC 1St 60 Min 021 12:00:00 AM EDT [facility] ([facility]) Complex Chronic Care MGMT Service Ea Addl 30 Min 10/28 12:00:00 AM EDT [facility] ([facility]) OFFICE OUTPATIENT VISIT 25 MINUTES 09/29/2020 12:00:00 AM EDT MEDSOL[facility]ARIO ([facility] Complex Chronic Care Management SVC 1St 60 Min 021 12:00:00 AM EDT MEDENT ([facility]) Complex Chronic Care MGMT Service Ea Addl 30 Min 09/26 12:00:00 AM EDT MED[facility] ([facility]) OFFICE OUTPATIENT VISIT 25 MINUTES 09/22/2020 12:00:00 AM EDT MED[facility] ([facility]) OFFICE OUTPATIENT VISIT 25 MINUTES 09/11/2020 12:00:00 AM EDT MED[facility] ([facility] ) Complex Chronic Care Management SVC 1St 60 Min 021 12:00:00 AM EDT MED[facility] ([facility]) Complex Chronic Care MGMT Service Ea Addl 30 Min 08/25 12:00:00 AM EDT MED[facility] ([facility]) Complex Chronic Care Management SVC 1St 60 Min 021 12:00:00 AM EDT MED[facility] ([facility]) Complex Chronic Care MGMT Service Ea Addl 30 Min 07/25 12:00:00 AM EDT MED[facility] ([facility]) OFFICE OUTPATIENT VISIT 25 MINUTES 07/24/2020 12:00:00 AM EDT MEDENT ([facility]) ARTHROCENTESIS ASPIR&/INJECTION MAJOR JT/BURSA 021 12:00:00 AM EDT [facility]SOL[facility] ([facility] RADEX SHOULDER COMPLETE MINIMUM 2 VIEWS 07/18/2020 12: 00:00 AM EDT MED[facility] ([facility] ) ARTHROCENTESIS ASPIR&/INJECTION MAJOR JT/BURSA 021 12:00:00 AM EDT MED[facility] ([facility] ) Complex Chronic Care Management SVC 1St 60 Min 021 12:00:00 AM EDT MED[facility] ([facility]) Complex Chronic Care MGMT Service Ea Addl 30 Min 07/01 12:00:00 AM EDT MED[facility] ([facility]) INJECTION 1 TENDON SHEATH/LIGAMENT APONEUROSIS 021 12:00:00 AM EDT MED[facility] ([facility] ) ARTHROCENTESIS ASPIR&/INJECTION MAJOR JT/BURSA 021 12:00:00 AM EDT MEDENT ([facility]) RADIOLOGIC EXAM KNEE COMPLETE 4/MORE VIEWS 06/24/2020 12:00:00 AM EDT MEDENT ([facility]) RADIOLOGIC EXAM KNEE COMPLETE 4/MORE VIEWS 06/24/2020 12:00:00 AM EDT MEDENT ([facility]) Mammogram 06/19/2020 12:00:00 AM EDT M EDENT ([facility]) Bone Mineral Density Test 06/19/2020 12:00:00 AM EDT MED[facility] ([facility]) Brief Emotional/Behav Assessment W/ Scoring Doc Per Standard Inst 06/17/2020 12:00:00 AM EDT MED[facility] ([facility] ) OFFICE OUTPATIENT VISIT 25 MINUTES 06/17/2020 12:00:00 AM EDT MED[facility] ([facility]) OFFICE OUTPATIENT NEW 45 MINUTES 06/12/2020 12:00:00 A M EST MEDENT ([facility] ) ECG ROUTINE ECG W/LEAST 12 LDS W/I&R 05/27/2020 12:00: 00 AM EST MED[facility] ([facility]) OFFICE OUTPATIENT VISIT 15 MINUTES 05/27/2020 12:00:00 AM EST MED[facility] ([facility]) Complex Chronic Care Management SVC 1St 60 Min 021 12:00:00 AM EST MED[facility] ([facility]) Complex Chronic Care MGMT Service Ea Addl 30 Min 05/27 12:00:00 AM EST MED[facility] ([facility]) OFFICE OUTPATIENT VISIT 25 MINUTES 05/05/2020 12:00:00 AM EST [facility] ([facility]) Complex Chronic Care Management SVC 1St 60 Min 020 12:00:00 AM EST [facility] ([facility]) Complex Chronic Care MGMT Service Ea Addl 30 Min 03/25 12:00:00 AM EST MED[facility] ([facility]) Brief Emotional/Behav Assessment W/ Scoring Doc Per Standard Inst 01/31/2020 12:00:00 AM EDT [facility] Results ID Date Data Source [id number] 01/26/2021 03:51:00 PM [facility] Name Value Range Interpretation Code Description Data Mariposa rce(s) Supporting Document(s) Influenza A Amplification Laboratory test result MEDENT ([facility]) Negative results do not preclude influen za or RSV virus infection and should not be used as the sole basis for treatment or other patient management decisions. Influenza B Amplification Laboratory test result MED[facility] ([facility]) Negative results do not preclude influen za or RSV virus infection and should not be used as the sole basis for treatment or other patient management decisions. Laboratory test finding (navigational concept) Laboratory test result MEDENT ([facility]) A false negative result may occur if [...] pathogens. DISCLAIMER: Testing was performed using the [employer] SARS-CoV-2 test. This test was developed and its performance characteristics determined by [employer]. This test has not been FDA cleared [...] sooner. RSV Amplification Laboratory test result MEDENT ([facility]) Negative results do not preclude influen za or RSV virus infection and should not be used as the sole basis for treatment or other patient management decisions. ID Date Data Source [id number] 01/26/2021 03:01:00 PM EDT [facility]) Name Value Range Interpretation Code Description Data Mariposa rce(s) Supporting Document(s) Digoxin [Mass/volume] in Serum or Plasma 0.5 ng/mL 0.5-2.0 [facility] ([facility]) <content>note:<nlbl:demographic_changed> </content>
<content></content> Natriuretic peptide.B prohormone N-Terminal [Mass/volu me] in Serum or Plasma 5817 pg/mL [facility] <content>note:<nlbl:demographic_changed> </content>
<content></content> Thyroxine (T4) Ab [Units/volume] in Serum 10.1 ug/dL 4.5-12.0 [facility] <content>note:<nlbl:demographic_changed> </content>
<content></content> Thyrotropin [Units/volume] in Serum or Plasma by Detec tion limit <= 0.05 mIU/L 0.051 uIU/ML 0.358-3.740 [facility] <content>note:<nlbl:demographic_changed> </content>
<content></content> ID Date Data Source [id number] 01/26/2021 03:01:00 PM EDT [facility] Name Value Range Interpretation Code Description Data Mariposa rce(s) Supporting Document(s) Glucose, Fasting 106 mg/dL 70-100 [facility] ([facility]) Creatinine For GFR 0.94 mg/dL 0.55-1.30 [facility] Blood Urea Nitrogen 18 mg/dL 7-18 [facility] ([facility]) Glomerular Filtration Rate Laboratory test result [facility] ([facility]) <content>Units are mL/min/1.73 m2</content>
<content></content>
<content>Chronic Kidney Disease Staging per NKF:</content>
<content></content>
<content>Stage I & II GFR >=60 Normal to Mildly Decreased</content>
<content>Stage III GFR 30- 59 Moderately Decreased</content>
<content>Stage IV GFR 15-29 Severely Decreased</content>
<content>Stage V GFR <15 Very Little GFR Left</content>
<content>ESRD GFR <15 on SENIOR WEB ARCHITECT</content>
<content></content> Sodium Level 140 meq/L 136-145 [facility] ([facility]) Chloride Level 111 meq/L 98-107 [facility] ([facility]) Potassium Serum 4.6 meq/L 3.5-5.1 [facility] ([facility]) Anion Gap 7 meq/L 8-16 [facility] ([facility]) Carbon Dioxide Level 22 meq/L 21-32 [facility] Calcium Level 10.7 mg/dL 8.8-10.2 [facility] ([facility]) ID Date Data Source [id number] 01/26/2021 03:01:00 PM EDT MED[facility] ([facility]) Name Value Range Interpretation Code Description Data Mariposa rce(s) Supporting Document(s) Ast/Sgot 26 U/L 7-37 [facility] ([facility]) Alt/SGPT 28 U/L 12-78 [facility] ([facility]) Bilirubin,Total 0.8 mg/dL 0.2-1.0 [facility] ([facility]) Alkaline Phosphatase 105 U/L 45-117 [facility] ([facility]) Total Protein 7.9 GM/DL 6.4-8.2 [facility] ([facility]) Bilirubin,Direct 0.4 mg/dL 0.0-0.2 [facility] Albumin/Globulin Ratio 0.5 1.2-2.2 [facility] ([facility]) Albumin 2.8 GM/DL 3.2-5.2 [facility] ([facility]) ID Date Data Source [id number] 01/26/2021 03:01:00 PM EDT [facility] ([facility]) Name Value Range Interpretation Code Description Data Mariposa rce(s) Supporting Document(s) CPK Creatine Phosphokinase 26 U/L 26-192 [facility] ([facility]) MB/CK Relative Index 3.85 [facility] <content>DIAGNOSIS CRITERIA</content>
<content>MMB ng/ml Relative Index (RI)</content>
<content>NON-AMI < or = 5 N/A</content>
<content>SANCHEZ ZONE > 5 < or = 4</content>
<content>AMI > 5 > 4</content>
<content></content> CK-MB Value Mass 1.0 ng/mL [facility] ([facility]) Troponin I 0.02 ng/mL [facility] ([facility]) <content>Troponin I Reference Interval f or Siemens [place] LOCI:</content>
<content></content>
<content>99th Percentile= 0.00-0.045 ng/ml</content>
<content></content>
<content>Risk Stratification:</content>
<content><= 0.10 ng/ml Decreased Risk for Adverse Clinical</content>
<content>Events.</content>
<content>0.10-1.50 ng/ml Increased Risk for Adverse Clinical</content>
<content>Events. Evaluation of additional</content>
<content>criterion and/or repeat testing in 2-6</content>
<content>hours is suggested to rule out myocardial</content>
<content>damage.</content>
<content>>= 1.50 ng/ml Indicative of Myocardial Injury.</content>
<content></content> ID Date Data Source [id number] 01/26/2021 03:01:00 PM EDT [facility] ([facility]) Name Value Range Interpretation Code Description Data Mariposa rce(s) Supporting Document(s) White Blood Count 6.3 10 4.0-10.0 [facility] ([facility]) Hemoglobin 12.9 g/dL 12.0-15.5 [facility] Red Blood Count 4.12 10 4.00-5.40 [facility] ([facility]) Mean Corpuscular Hemoglobin 31.3 pg 27.0-33.0 ME D[facility] ([facility]) Mean Corpuscular Volume 100.2 fl 80.0-96.0 [facility] ([facility]) Hematocrit 41.3 % 36.0-47.0 [facility] Red Cell Distribution Width 14.8 % 11.5-14.5 ME [facility] ([facility]) Mean Corpuscular HGB Conc 31.2 g/dL 32.0-36.5 MED[facility] NT ([facility]) Platelet Count, Automated 202 10 150-450 [facility] ([facility]) Neutrophils % 79.5 % 36.0-66.0 [facility] ([facility]) Lymph % 13.8 % 24.0-44.0 [facility]) Eos % 1.1 % 0.0-3.0 [facility]) Dickson % 4.8 % 2.0-8.0 [facility]) Immature Granulocyte % 0.5 % 0-3.0 [facility] ([facility]) Baso % 0.3 % 0.0-1.0 [facility] Neutrophils # 5.0 10 1.5-8.5 [facility] ([facility]) Nucleated Red Blood Cell % 0.0 % 0-0 MED [facility] ([facility]) Lymph # 0.9 10 1.5-5.0 [facility] Eos # 0.1 10 0.0-0.5 [facility]) Baso # 0.0 10 0.0-0.2 [facility]) Dickson # 0.3 10 0.0-0.8 [facility]) ID Date Data Source [id number] 01/07/2021 02:57:00 PM EDT [facility] ([facility]) Name Value Range Interpretation Code Description Data Mariposa rce(s) Supporting Document(s) Bacteria identified in Wound shallow by Aerobe culture Laborator y test result [facility] ([facility]) ID Date Data Source [id number] 10/15/2020 12:29:00 PM EDT [facility] ([facility]) Name Value Range Interpretation Code Description Data Mariposa rce(s) Supporting Document(s) White Blood Count 6.8 5.0-10.0 [facility] ([facility]) Platelets 187 172-450 [facility] Red Blood Count 3.85 4.00-5.40 [facility] ([facility]) Hemoglobin 12.7 [facility] ([facility]) Hematocrit 39.4 [facility] ([facility]) ID Date Data Source [id number] 10/15/2020 12:21:00 PM EDT [facility] ([facility]) Name Value Range Interpretation Code Description Data Mariposa rce(s) Supporting Document(s) Red Blood Count 3.85 10 4.00-5.40 [facility] ([facility]) White Blood Count 6.8 10 4.0-10.0 [facility] ([facility]) Hemoglobin 12.7 g/dL 12.0-15.5 [facility] Hematocrit 39.4 % 36.0-47.0 [facility] ([facility]) Mean Corpuscular Volume 102.3 fl 80.0-96.0 [facility] ([facility]) Mean Corpuscular Hemoglobin 33.0 pg 27.0-33.0 [facility] ([facility]) Red Cell Distribution Width 12.3 % 11.5-14.5 [facility] ([facility]) Mean Corpuscular HGB Conc 32.2 g/dL 32.0-36.5 [facility] NT ([facility]) Platelet Count, Automated 187 10 150-450 [facility] NT ([facility]) Neutrophils % 72.2 % 36.0-66.0 [facility] ([facility]) Lymph % 19.9 % 24.0-44.0 [facility]) Dickson % 6.0 % 2.0-8.0 [facility]) Eos % 1.5 % 0.0-3.0 [facility] Baso % 0.3 % 0.0-1.0 [facility]) Immature Granulocyte % 0.1 % 0-3.0 [facility] ([facility]) Nucleated Red Blood Cell % 0.0 % 0-0 [facility] ([facility]) Neutrophils # 4.9 10 1.5-8.5 [facility]) Lymph # 1.4 10 1.5-5.0 [facility]) Dickson # 0.4 10 0.0-0.8 [facility]) Eos # 0.1 10 0.0-0.5 [facility]) Baso # 0.0 10 0.0-0.2 [facility]) ID Date Data Source [id number] 10/17/2020 05:25:00 PM EDT [facility] Hematopathology Report See Addendum Lvei wName: GLENNA HOODMRN: [id number] Number: [id number] Date: 10/15/2020 00:00Received Date: 10/16/2020 13:57Physician(s): ABDIAS WERNER MD ADJAPONG, OPOKUSAINT [facility]opy To:[facility]ITAL[facility]imen(s) ReceivedA: Bone Marrow, Flow Cytometry; RECEIVED [...] and TP53, and an IgH rearrangement. See [id number] of 1q and deletion of 13q are associated with progression. [id number] is generally associated with an intermediate risk and 1q gain isassociated with high risk. Addendum Electronically Signed By: Brenda Jeffery M.D. 10/27/2020 11:16 ProceduresFlow Cytometry Date Ordered:10/16/2020 Status: Signed Out10/17/2020 InterpretationPERIPHERAL BLOOD: CBC performed at [facility] (10/15/20)WBC 6.8 K/uLRBC *3.85 M/uLHgb 12.7 g/dLHct 39.4 %MCV *102.3 fLMCH 33.0 pgMCHC 32.2 g/dLRDW 12.3 %Platelets 187 K/ulDifferential Count (automated):72.2 % Neutrophils 1.5 % Eosinophils 0.3 % Vzmfiwqnd48.9 % Lymphocytes 0.1 % Atypical Lymphocytes 6.0 % Monocytes-------100.0 % A peripheral blood film is reviewed. BONE MARROW ASPIRATE:Differential Count (100 cells): 6 % Erythroid Precursors 2 % N. Myelocytes 1 % N. Metamyelocytes and Band Forms80 % Neutrophils 4 % Eosinophils 1 % Basophils 5 % Lymphocytes 1 % Plasma Cells--------100 % Morphology: Dilute sample.Lymphoid Panel: Sana Manzanares 21 1829 [id number] following markers were assayed: CD45 (gate), CD2, CD3, CD4, CD5, CD7,CD8, CD10, CD19, CD20, CD33, CD34, CD38, CD56, CD57, CD64, CD117, CD123,HLA-DR, Penn, and Lambda.#events: [id number]: 98%Flow Cytometry Differential (CD45/SSC)Lymphocyte [place]: 15%CD45 dim [place]: 1%Monocyte [place]: 4%Granulocyte [place]: 73%Nucleated/Erythroid [place]: 2%The lymphocyte gate showsB-cells (CD19): 14%T-cells (CD3): 75%NK-cells (CD3-/CD56+): 9%Penn/Lambda Ratio: 2.9CD4/CD8 Ratio: 1.8Results: (expressed as % of lymphocyte gate)T-cell Markers: CD2 = 80, CD3 = 75, CD3/CD4 = 48, CD3/CD8 = 27, CD5 = 74,CD7 = 75, CD3/57 = 8B-cell wendi ers: Penn = 9, Lambda = 3, CD19 = 14, CD20 = 16, CD19/10 = 1,CD19/CD5 = 3, CD38/CD20 = 15Light chain as % of B-Cells: CD19/Penn = 54, CD19/Lambda = 17CD19/CD5/Penn = 4, CD19/CD5/Lambda = 5CD19/CD10/Penn = 7, CD19/CD10/Lambda = 1NK cell Markers: CD56 = 12, CD57 = 13Other Markers: CD10 = 1, CD38 = 63Results: (expressed as % of CD45 dim gate)T-cell Markers: CD2 = 27, CD3 = 8, CD3/CD4 = 2, CD3/CD8 = 4, CD5 = 10, CD7= 26, CD3/57 = 2B-cell markers: Penn = 29, Lambda = 0, CD19 = 16, CD20 = 14, CD19/10 =12, CD19/CD5 = 3, CD38/CD20 = 11Light chain as % of B-Cells: CD19/Penn = 0, CD19/Lambda = 0CD19/CD10/Penn = 6, CD19/CD10/Lambda = 2NK cell Markers: CD56 = 16, CD57 = 13Basophil Markers: CD123 (HLA-DR-) = 19Other Markers: CD10 = 25, CD38 = 85, CD33 = 47, CD34 = 23, CD64 = 20,CD117 = 5, CD123 = 56, HLA-DR = 57Myeloma Panel for Hood Glenna MM HP21 1829 [id number] following markers were assayed: CD45 (cell gate), CD138 (plasma cellgate), CD19, CD20, CD38, CD56, cytoplasmic Penn, and cytoplasmic La mbda.(Please note, that Cytoplasmic Penn and Cytoplasmic Lambda are used todetect plasma cells, while surface Penn and Lambda are for lymphocytes).#events: [id number]: Routinely a minimum of 500,000 events are collected in each paneltube. Due to sample cellularity and/or processing this number was notachievable for this sample.Flow Cytometry Differential:Lymphocyte [place]: 13%CD45 dim [place]: 2%Monocyte [place]: 4%Granulocyte [place]: 74%NRBC [place]: 3%CD138 Plasma Cell [place]: 0%Results: (expressed as % of lymphocyte gate)B-Cells (CD19): 14% CD19 = 14, CD20 = 14Light chain as % of B-Cells: Cytoplasmic Penn/ CD20 = 49, CytoplasmicLambda/CD20 = 26Results: (expressed as % of total CD138+ plasma cell gate)CD38 = 64, CD56 = 40, CD38/56 = 37, CD19 = 12, CD20 = 5Cytoplasmic Penn/CD138 = 0, Cytoplasmic Lambda/CD138 = 67 Results- [...] were developed and theirperformance characteristics determined by [facility] Pathology department.They have not been cleared or approved by the US Food and DrugAdminis tration. The FDA has determined that such clearance or approval isnot necessary. Name Value Range Interpretation Code Description Data Mariposa rce(s) Supporting Document(s) ID Date Data Source [id number] 10/24/2020 01:04:00 PM [facility] Cytogenetics ReportName: GLENNA HOODMRN: [id number] Number: [id number] Date: 10/15/2020 00:00Received Date: 10/16/2020 13:50Physician(s): ABDIAS WERNER MD ADJAPONG, OPOKU,TRACYpecimen(s) ReceivedA: Bone Marrow - Karyo and Multiple Myel FISHClinical [id number] patient with multiple myeloma.TEST REQUESTED/PERFORMED: Chromosome analysis and fluorescence in situhybridization (FISH) DiagnosisFISH identified 11% of nuclei with gain of 1q; 11% with trisomy 5; and 10%with monosomy 13 in this plasma cell-enriched population of cells. FISHwas negative for gains or losses of chromosomes 7 and 9; deletions oo77r00.3 (IgH), and 17p13 (TP53); and an IgH [...] (1-3).Please correlate with the concurrent Hematopathology report, [id number]. References:1. Shagufta Li. 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 AtlasGenet Cytogenet Oncol Haematol. 1998;2(3):86-87.http://[email or web address]/[email or web address].html. Lastvisited .2. Delbert [employer] Kentrell. Mature B- [...] DescriptionFluorescence in situ Hybridization (FISH)multiple myeloma FISH panel:nucish(ZIDS2Xu5,CKS1Bx 3)[],(5p15.31,EGR1)x3[11/100],(B44D629,13q34)x1[10/100],(IgHx2)[97/100],(T P53,D17Z1)x2[98/100] CEP 7/W3Z059 (7q31):nuc danita(D7Z1,V1D886)x2[98/100] CEP 9:nuc danita(D9Z1x2)[98/100]DescriptionA plasma cell-enriched population evaluated [...] 11% 0% *CEP 7 (D7Z1) G LSI F9S485 (7q31) R 3% 100 2G2R: 98% 0% 2% CEP 9 (D9Z1) G 3%100 2% 0% 2% *LSI W65N357 (13q14.2) O LSI 13q34 G 3% 100 2O2% 1O1% 3% *LSI IgH(14q32) Y BA 3% 100 2Y: 97% 0% 3% *LSI TP53 (17p13.1) O CEP 17 (D17Z1) G 3% 100 2O2% 0% 2% Vendor: *[employer]. Probes: LSI: Locus Specific Probe; CEP: Centromeric [...] rce(s) Supporting Document(s) ID Date Data Source [id number] 09/30/2020 12:28:00 PM EDT [facility] ([facility]) Name Value Range Interpretation Code Description Data Mariposa rce(s) Supporting Document(s) Albumin [Mass/volume] in Serum or Plasma 3.0 [facility] ([facility]) Calcium [Mass/volume] in Serum or Plasma 10.2 [facility] ([facility]) Alanine aminotransferase [Enzymatic activity/volume] in Serum or Pl asma 19 [facility] ([facility]) Carbon dioxide, total [Moles/volume] in Serum or Plasma 27 [facility] ([facility]) Chloride [Moles/volume] in Serum or Plasma 107 [facility] ([facility]) Potassium [Moles/volume] in Serum or Plasma 4.7 [facility] ([facility]) Alkaline phosphatase [Enzymatic activity/volume] in Serum or Plasma 7 7 [facility] ([facility]) Sodium 137 [facility] ([facility]) Protein [Mass/volume] in Serum or Plasma 8.3 [facility] ([facility]) Aspartate aminotransferase [Enzymatic activity/volume] in Serum or Plasma 23 [facility] ([facility]) Urea nitrogen [Mass/volume] in Serum or Plasma 28 [facility] ([facility]) Creatinine For GFR 0.90 [facility] ([facility]) Glucose 98 83-110 [facility] ID Date Data Source [id number] 09/30/2020 12:28:00 PM EDT [facility] ([facility]) Name Value Range Interpretation Code Description Data Mariposa rce(s) Supporting Document(s) White Blood Count 6.2 5.0-10.0 [facility] ([facility]) Red Blood Count 3.76 4.00-5.40 [facility] ([facility]) Hemoglobin 12.5 [facility] ([facility]) Platelets 199 172-450 [facility] ([facility]) Hematocrit 39.0 [facility] ([facility]) ID Date Data Source [id number] 09/30/2020 12:03:00 PM EDT [facility] ([facility]) Name Value Range Interpretation Code Description Data Mariposa rce(s) Supporting Document(s) Prothrombin Time 13.8 s 12.5-14.3 [facility] ([facility]) Inr 1.04 [facility] THERAPUTIC HUMAN INR VALUES INDICATIONS NORMAL RANGES PROPHYLAXIS/TREATMENT OF: VENOUS THROMBOSIS 2.0-3.0 PULMONARY EMBOLISM 2.0-3.0 PREVENTION OF SYSTEMIC EMBOLISM FROM: TISSUE HEART VALVES 2.0-3.0 ACUTE MYOCARDIAL INFARCTION 2.0-3.0 VALVULAR HEART DISEASE 2.0-3.0 ATRIAL FIBRILLATION 2.0-3.0 MECHANICAL VALVES(HIGH RISK) 2.5-3.5 RECURRENT MYOCARDIAL INFARCTION 2.5-3.5 Partial Thromboplastin Time 30.6 s 24.2-38.5 [facility] ([facility]) ID Date Data Source [id number] 09/30/2020 10:38:00 AM EDT [facility]) Name Value Range Interpretation Code Description Data Mariposa rce(s) Supporting Document(s) Glucose, Fasting 98 mg/dL 70-100 [facility] ([facility]) Blood Urea Nitrogen 28 mg/dL 7-18 [facility] ([facility]) Glomerular Filtration Rate Laboratory test result [facility] ([facility]) <content>Units are mL/min/1.73 m2</content>
<content></content>
<content>Chronic Kidney Disease Staging per NKF:</content>
<content></content>
<content>Stage I & II GFR >=60 Normal to Mildly Decreased</content>
<content>Stage III GFR 30- 59 Moderately Decreased</content>
<content>Stage IV GFR 15-29 Severely Decreased</content>
<content>Stage V GFR <15 Very Little GFR Left</content>
<content>ESRD GFR <15 on SENIOR WEB ARCHITECT</content>
<content></content> Creatinine For GFR 0.90 mg/dL 0.55-1.30 [facility] ([facility]) Sodium Level 137 meq/L 136-145 [facility] ([facility]) Chloride Level 107 meq/L 98-107 [facility] ([facility]) Potassium Serum 4.7 meq/L 3.5-5.1 [facility] ([facility]) Carbon Dioxide Level 27 meq/L 21-32 [facility] ([facility]) Anion Gap 3 meq/L 8-16 [facility] ([place] [facility]) Calcium Level 10.2 mg/dL 8.8-10.2 [facility] ([facility]) Ast/Sgot 23 U/L 7-37 [facility] ([place] [facility]) Alkaline Phosphatase 77 U/L 45-117 [facility] ([facility]) Alt/SGPT 19 U/L 12-78 [facility] ([place] [facility]) Bilirubin,Total 0.5 mg/dL 0.2-1.0 [facility] ([facility]) Total Protein 8.3 GM/DL 6.4-8.2 [facility] ([facility]) Albumin 3.0 GM/DL 3.2-5.2 [facility] ([place] [facility]) Albumin/Globulin Ratio 0.6 1.2-2.2 [facility] ([facility]) ID Date Data Source [id number] 09/30/2020 10:38:00 AM EDT [facility] ([facility]) Name Value Range Interpretation Code Description Data Mariposa rce(s) Supporting Document(s) White Blood Count 6.2 10 4.0-10.0 [facility] ([facility]) Red Blood Count 3.76 10 4.00-5.40 [facility] ([facility]) Hemoglobin 12.5 g/dL 12.0-15.5 [facility] ([place] Mean Corpuscular Volume 103.7 fl 80.0-96.0 [facility] ([facility]) Hematocrit 39.0 % 36.0-47.0 [facility] Mean Corpuscular HGB Conc 32.1 g/dL 32.0-36.5 [facility] NT ([facility]) Mean Corpuscular Hemoglobin 33.2 pg 27.0-33.0 ME [facility] ([facility]) Platelet Count, Automated 199 10 150-450 [facility] ([facility]) Red Cell Distribution Width 12.9 % 11.5-14.5 [facility] ([facility]) Neutrophils % 74.5 % 36.0-66.0 [facility] ([facility]) Lymph % 16.4 % 24.0-44.0 [facility] ([place] [facility]) Dickson % 7.0 % 2.0-8.0 [facility]) Eos % 1.1 % 0.0-3.0 [facility]) Baso % 0.5 % 0.0-1.0 [facility]) Nucleated Red Blood Cell % 0.0 % 0-0 [facility] ([facility]) Immature Granulocyte % 0.5 % 0-3.0 [facility] ([facility]) Neutrophils # 4.6 10 1.5-8.5 [facility] ([facility]) Lymph # 1.0 10 1.5-5.0 [facility] [facility]) Dickson # 0.4 10 0.0-0.8 [facility] ([place] [facility]) Eos # 0.1 10 0.0-0.5 [facility] Baso # 0.0 10 0.0-0.2 [facility] ([place] [facility]) ID Date Data Source [id number] 09/22/2020 02:06:00 PM EDT [facility] ([facility]) Name Value Range Interpretation Code Description Data Mariposa rce(s) Supporting Document(s) Thyrotropin [Units/volume] in Serum or Plasma by Detec tion limit <= 0.05 mIU/L 0.19 uIU/mL 0.36-3.74 [facility] ([facility] ) ID Date Data Source [id number] 09/22/2020 02:06:00 PM EDT [facility] ([facility]) Name Value Range Interpretation Code Description Data Mariposa rce(s) Supporting Document(s) Urea nitrogen [Mass/volume] in Serum or Plasma 18 mg/dL 7-18 [facility] ([facility]) Glucose [Mass/volume] in Serum or Plasma 100 mg/dL 74-99 [facility] ([facility]) 100-125 mg/dL PRE-DIABETES/FASTING >126 mg/dL DIABETES/FASTING Creatinine 0.8 mg/dL 0.6-1.3 [facility] ([facility]) Sodium [Moles/volume] in Serum or Plasma 141 meq/L 136-145 [facility] ([facility]) Potassium [Moles/volume] in Serum or Plasma 3.8 meq/L 3.5-5.1 [facility] ([facility]) Calcium [Mass/volume] in Serum or Plasma 10.8 mg/dL 8.5-10.1 [facility] ([facility]) NOTE: CALCIUM,TSH VERIFIED Carbon dioxide, total [Moles/volume] in Serum or Plasma 29 meq/L 21 -32 [facility] ([facility]) Chloride [Moles/volume] in Serum or Plasma 104 meq/L 98-107 [facility] ([facility]) Glomerular filtration rate/1.73 sq M pre dicted among non-blacks [Volume Rate/Area] in Serum or Plasma by Creatinine-based formula (MDRD) Laboratory test result [facility] Glomerular filtration rate/1.73 sq M pre dicted among blacks [Volume Rate/Area] in Serum or Plasma by Creatinine-based formula (MDRD) Laboratory test result [facility] <content>CHRONIC KIDNEY DISEASE STAGING PER NKF</content>
<content></content>
<content>STAGE I & II GFR >= 60 NORMAL TO MILDLY DECREASED</content>
<content>STAGE III GFR 30-59 MODERATELY DECREASED</content>
<content>STAGE IV GFR 15-29 SEVERELY DECREASED</content>
<content>STAGE V GFR <15 VERY LITTLE GFR LEFT</content>
<content>ESRD GFR <15 ON SENIOR WEB ARCHITECT</content>
<content></content> ID Date Data Source [id number] 09/22/2020 02:06:00 PM EDT [facility] ([facility]) Name Value Range Interpretation Code Description Data Mariposa rce(s) Supporting Document(s) Erythrocyte sedimentation rate by Westergren method 25 mm/hr 0-15 [facility] ID Date Data Source [id number] 09/22/2020 02:06:00 PM EDT [facility] Name Value Range Interpretation Code Description Data [place] rce(s) Supporting Document(s) Leukocytes [#/volume] in Blood by Automated count 5.9 x10*3/UL 4.1-10 .9 [facility] ([facility]) Erythrocytes [#/volume] in Blood by Automated count 4.11 x10*6/UL 4.2 0-6.30 [facility] ([facility]) Hemoglobin [Mass/volume] in Blood 13.6 g/dL 12.0-18.0 [facility] ([facility]) MCV 97.4 fL 80.0-97.0 [facility] ([place] [facility]) MCH 33.1 pg 26.0-32.0 [facility] [facility]) Hematocrit [Volume Fraction] of Blood by Automated count 40.0 % 3 7.0-51.0 [facility] ([facility]) Platelets [#/volume] in Blood by Automated count 209 x10*3/UL 140-440 [facility] ([facility]) Erythrocyte distribution width [Ratio] by Automated count 13.2 % 11.6-13.7 [facility] ([facility]) MCHC 34.0 g/dL 31.0-38.0 [facility] ([place] [facility]) MPV 8.1 FL 7.8-11.0 [facility] ([place] [facility]) Lymph % 25.6 % 10.0-58.5 [facility] ([place] [facility]) Mid % 7.5 % 1.7-9.3 [facility] ([place] [facility]) Neut % 66.9 % 37.0-92.0 [facility] ([place] [facility]) Lymph # 1.5 x10*3/UL 0.6-4.1 [facility] ([facility]) Mid # 0.5 x10*3/UL 0.1-0.6 [facility] ([facility]) Neut # 3.9 x10*3/UL 2.0-7.8 [facility] ([facility]) ID Date Data Source [id number] 07/24/2020 01:37:00 PM EDT [facility] ([facility]) Name Value Range Interpretation Code Description Data Mariposa rce(s) Supporting Document(s) Digoxin [Mass/volume] in Serum or Plasma 0.3 ng/mL 0.5-2.0 [facility] ([facility]) <content>note:<nlbl:demographic_changed> </content>
<content></content> ID Date Data Source [id number] 07/24/2020 01:37:00 PM EDT [facility] ([facility]) Name Value Range Interpretation Code Description Data [place] rce(s) Supporting Document(s) Thyrotropin [Units/volume] in Serum or Plasma by Detec tion limit <= 0.05 mIU/L 0.32 uIU/mL 0.36-3.74 [facility] ) ID Date Data Source [id number] 07/24/2020 01:37:00 PM EDT [facility] ([facility]) Name Value Range Interpretation Code Description Data [place] rce(s) Supporting Document(s) Cholesterol [Mass/volume] in Serum or Plasma 132 mg/dL 131-200 [facility] ([facility]) Cholesterol in HDL [Mass/volume] in Serum or Plasma 54 mg/dL 35-60 [facility] ([facility]) Cholesterol in LDL [Mass/volume] in Serum or Plasma by calcu lation 64 CALC 50-159 [facility] ([facility]) Triglyceride [Mass/volume] in Serum or Plasma 72 mg/dL 30-150 [facility] ([facility]) ID Date Data Source [id number] 07/24/2020 01:37:00 PM EDT [facility] ([facility]) Name Value Range Interpretation Code Description Data [place] rce(s) Supporting Document(s) Glucose [Mass/volume] in Serum or Plasma 70 mg/dL 74-99 [facility] ([facility]) 100-125 mg/dL PRE-DIABETES/FASTING >126 mg/dL DIABETES/FASTING Urea nitrogen [Mass/volume] in Serum or Plasma 23 mg/dL 7-18 [facility] ([facility]) Sodium [Moles/volume] in Serum or Plasma 144 meq/L 136-145 [facility] ([facility]) Creatinine 0.9 mg/dL 0.6-1.3 [facility] ([place] [facility]) Carbon dioxide, total [Moles/volume] in Serum or Plasma 32 meq/L 21 -32 [facility] ([facility]) Potassium [Moles/volume] in Serum or Plasma 3.8 meq/L 3.5-5.1 [facility] ([facility]) Chloride [Moles/volume] in Serum or Plasma 104 meq/L 98-107 [facility] ([facility]) Glomerular filtration rate/1.73 sq M pre dicted among blacks [Volume Rate/Area] in Serum or Plasma by Creatinine-based formula (MDRD) Laboratory test result [facility] <content>CHRONIC KIDNEY DISEASE STAGING PER NKF</content>
<content></content>
<content>STAGE I & II GFR >= 60 NORMAL TO MILDLY DECREASED</content>
<content>STAGE III GFR 30-59 MODERATELY DECREASED</content>
<content>STAGE IV GFR 15-29 SEVERELY DECREASED</content>
<content>STAGE V GFR <15 VERY LITTLE GFR LEFT</content>
<content>ESRD GFR <15 ON SENIOR WEB ARCHITECT</content>
<content></content> Glomerular filtration rate/1.73 sq M pre dicted among non-blacks [Volume Rate/Area] in Serum or Plasma by Creatinine-based formula (MDRD) Laboratory test result [facility] ([facility] ) Calcium [Mass/volume] in Serum or Plasma 10.1 mg/dL 8.5-10.1 [facility] ([facility]) ID Date Data Source [id number] 07/24/2020 01:37:00 PM EDT [facility] Name Value Range Interpretation Code Description Data Mariposa rce(s) Supporting Document(s) Erythrocyte sedimentation rate by Westergren method 45 mm/hr 0-15 [facility] Magnesium 1.8 mg/dL 1.8-2.4 [facility] ID Date Data Source [id number] 07/24/2020 01:37:00 PM EDT [facility] Name Value Range Interpretation Code Description Data Mariposa rce(s) Supporting Document(s) Leukocytes [#/volume] in Blood by Automated count 8.4 x10*3/UL 4.1-10 .9 [facility] ([facility]) Erythrocytes [#/volume] in Blood by Automated count 4.20 x10*6/UL 4.2 0-6.30 [facility] ([facility]) Hemoglobin [Mass/volume] in Blood 14.0 g/dL 12.0-18.0 [facility] ([facility]) Hematocrit [Volume Fraction] of Blood by Automated count 40.3 % 3 7.0-51.0 [facility] ([facility]) MCV 95.8 fL 80.0-97.0 [facility] MCH 33.3 pg 26.0-32.0 [facility] ([facility]) Erythrocyte distribution width [Ratio] by Automated count 13.3 % 11.6-13.7 [facility] ([facility]) MCHC 34.7 g/dL 31.0-38.0 [facility] Lymph % 17.5 % 10.0-58.5 [facility] ([facility]) Platelets [#/volume] in Blood by Automated count 207 x10*3/UL 140-440 [facility] ([facility]) MPV 8.0 FL 7.8-11.0 [facility] Neut % 77.7 % 37.0-92.0 [facility] ([facility]) Mid % 4.8 % 1.7-9.3 [facility] ([facility]) Lymph # 1.4 x10*3/UL 0.6-4.1 [facility] ([facility]) Mid # 0.5 x10*3/UL 0.1-0.6 [facility] ([facility]) Neut # 6.5 x10*3/UL 2.0-7.8 [facility] ([facility]) ID Date Data Source [id number] 07/24/2020 01:37:00 PM EDT [facility] Name Value Range Interpretation Code Description Data Mariposa rce(s) Supporting Document(s) Thyrotropin [Units/volume] in Serum or Plasma by Detec tion limit <= 0.05 mIU/L 0.32 uIU/mL 0.36-3.74 [facility] ([employer] [facility]) Digoxin [Mass/volume] in Serum or Plasma 0.3 ng/mL 0.5-2.0 [facility] ([facility]) <content>note:<nlbl:demographic_changed></content>
<content></content>
< content></content> ID Date Data Source [id number] 07/24/2020 01:37:00 PM EDT [facility] Name Value Range Interpretation Code Description Data Mariposa rce(s) Supporting Document(s) Cholesterol [Mass/volume] in Serum or Plasma 132 mg/dL 131-200 [facility] ([facility]) Triglyceride [Mass/volume] in Serum or Plasma 72 mg/dL 30-150 [facility] ([facility]) Cholesterol in HDL [Mass/volume] in Serum or Plasma 54 mg/dL 35-60 [facility] ([facility]) Cholesterol in LDL [Mass/volume] in Serum or Plasma by calcu lation 64 CALC 50-159 [facility] ([facility]) ID Date Data Source [id number] 07/24/2020 01:37:00 PM EDT [facility] ([facility]) Name Value Range Interpretation Code Description Data Mariposa rce(s) Supporting Document(s) Glucose [Mass/volume] in Serum or Plasma 70 mg/dL 74-99 [facility] ([facility]) 100-125 mg/dL PRE-DIABETES/FASTING >126 mg/dL DIABETES/FASTING Urea nitrogen [Mass/volume] in Serum or Plasma 23 mg/dL 7-18 [facility] ([facility]) Creatinine 0.9 mg/dL 0.6-1.3 [facility] ([facility]) Sodium [Moles/volume] in Serum or Plasma 144 meq/L 136-145 [facility] ([facility]) Potassium [Moles/volume] in Serum or Plasma 3.8 meq/L 3.5-5.1 [facility] ([facility]) Carbon dioxide, total [Moles/volume] in Serum or Plasma 32 meq/L 21 -32 [facility] ([facility]) Chloride [Moles/volume] in Serum or Plasma 104 meq/L 98-107 [facility] ([facility]) Calcium [Mass/volume] in Serum or Plasma 10.1 mg/dL 8.5-10.1 [facility] ([facility]) Glomerular filtration rate/1.73 sq M pre dicted among non-blacks [Volume Rate/Area] in Serum or Plasma by Creatinine-based formula (MDRD) Laboratory test result [facility] ([employer] [employer] [facility]) Glomerular filtration rate/1.73 sq M pre dicted among blacks [Volume Rate/Area] in Serum or Plasma by Creatinine-based formula (MDRD) Laboratory test result [facility] ([facility]) <content>CHRONIC KIDNEY DISEASE STAGING PER NKF</content>
<content></content>
<content>STAGE I & II GFR >= 60 NORMAL TO MILDLY DECREASED</content>
<content>STAGE III GFR 30-59 MODERATELY DECREASED</content>
<content>STAGE IV GFR 15-29 SEVERELY DECREASED</content>
<content>STAGE V GFR <15 VERY LITTLE GFR LEFT</content>
<content>ESRD GFR <15 ON SENIOR WEB ARCHITECT</content>
<content></content>
<content></content> ID Date Data Source [id number] 07/24/2020 01:37:00 PM EDT [facility] ([facility]) Name Value Range Interpretation Code Description Data Mariposa rce(s) Supporting Document(s) Leukocytes [#/volume] in Blood by Automated count 8.4 x10*3/UL 4.1-10 .9 [facility] ([facility]) Erythrocytes [#/volume] in Blood by Automated count 4.20 x10*6/UL 4.2 0-6.30 [facility] ([facility]) Hemoglobin [Mass/volume] in Blood 14.0 g/dL 12.0-18.0 [facility] ([facility]) Hematocrit [Volume Fraction] of Blood by Automated count 40.3 % 3 7.0-51.0 [facility] ([facility]) MCV 95.8 fL 80.0-97.0 [facility] ([facility]) MCH 33.3 pg 26.0-32.0 [facility] ([facility]) Erythrocyte distribution width [Ratio] by Automated count 13.3 % 11.6-13.7 [facility] ([facility]) MCHC 34.7 g/dL 31.0-38.0 [facility] ([facility]) Platelets [#/volume] in Blood by Automated count 207 x10*3/UL 140-440 [facility] ([facility]) Platelet mean volume [Entitic volume] in Blood by Jeremy-David 8.0 FL 7.8-11.0 [facility] ([facility]) Lymphocytes/100 leukocytes in Blood by Automated count 17.5 % 10. 0-58.5 [facility] ([facility]) Mid % 4.8 % 1.7-9.3 [facility] ([facility]) Lymph # 1.4 x10*3/UL 0.6-4.1 [facility] ([facility]) Neut % 77.7 % 37.0-92.0 [facility] ([facility]) Neutrophils [#/volume] in Semen by Manual count 6.5 x10*3/UL 2.0-7.8 [facility] ([facility]) Mid # 0.5 x10*3/UL 0.1-0.6 [facility] (Cardiolog y [facility]) ID Date Data Source [id number] 07/16/2020 02:59:00 PM EDT [facility] ([facility]) Name Value Range Interpretation Code Description Data Mariposa rce(s) Supporting Document(s) Free Lambda Light Chains Serum 517.2 mg/L 5.7-26.3 [facility] ([facility]) Free Penn Light Chains Serum 6.4 mg/L 3.3-19.4 [facility] ([facility]) Penn/Lambda Ratio Serum 0.01 0.26-1.65 [facility] ID Date Data Source [id number] 07/16/2020 02:59:00 PM EDT [facility] Name Value Range Interpretation Code Description Data Mariposa rce(s) Supporting Document(s) Ferritin [Mass/volume] in Serum or Plasma 128 ng/mL 8-252 [facility] <content>note:<nlbl:demographic_changed> </content>
<content></content> Dsog-8-Wfllhkoebnwrj [Mass/volume] in Serum or Plasma 3.7 mg/L 0.6- 2.4 [facility] Siemens Immulite 2000 Immunochemiluminom etric assay (ICMA) . Values obtained with different assay methods or kits cannot be used interchangeably. Results cannot be interpreted as absolute evidence of the presence or absence of malignant disease. Performed at: RN - [facility] [address] [id number] [employer] Tender: Nataliya Owen MD, Phone: [phone] Performed at: - [facility] [address] [id number] [employer] Tender: Aaliyah Posadas MD, Phone: [phone] ID Date Data Source [id number] 07/16/2020 02:59:00 PM EDT [facility] ([facility]) Name Value Range Interpretation Code Description Data Mariposa rce(s) Supporting Document(s) Immunotyping Serum Iga Laboratory test result [facility] ([facility]) Immunotyping Serum Lambda Laboratory test result [facility] ([facility]) Laboratory test finding (navigational concept) Laboratory test result [facility] ([facility]) REV'D BY O ADJAPONG It Serum Interpretation Laboratory test result [facility] ([facility]) MONOCLONAL IGA,LAMBDA ID Date Data Source [id number] 07/16/2020 02:59:00 PM EDT [facility] ([facility]) Name Value Range Interpretation Code Description Data Mariposa rce(s) Supporting Document(s) Immunoglobulin G 510 mg/dL [id number] [facility] ([facility]) Immunoglobulin A 2640.0 mg/dL 70-400 [facility] ([facility]) Immunoglobulin M Laboratory test result 40-230 [facility] ([facility]) ID Date Data Source [id number] 07/16/2020 02:59:00 PM EDT [facility] ([facility]) Name Value Range Interpretation Code Description Data Mariposa rce(s) Supporting Document(s) Iron (Fe) 131 ug/dL 50-170 [facility]) Total Iron Binding Capacity 305 ug/dL 250-450 [facility] ([facility]) Percent Saturation 43.0 % 13.2-45.0 [facility] ([facility]) ID Date Data Source [id number] 07/16/2020 02:59:00 PM EDT [facility] ([facility]) Name Value Range Interpretation Code Description Data Mariposa rce(s) Supporting Document(s) Glucose, Fasting 97 mg/dL 70-100 [facility] ([facility]) Blood Urea Nitrogen 24 mg/dL 7-18 [facility] ([facility]) Creatinine For GFR 0.85 mg/dL 0.55-1.30 [facility] ([facility]) Glomerular Filtration Rate Laboratory test result [facility] ([facility]) <content>Units are mL/min/1.73 m2</content>
<content></content>
<content>Chronic Kidney Disease Staging per NKF:</content>
<content></content>
<content>Stage I & II GFR >=60 Normal to Mildly Decreased</content>
<content>Stage III GFR 30- 59 Moderately Decreased</content>
<content>Stage IV GFR 15-29 Severely Decreased</content>
<content>Stage V GFR <15 Very Little GFR Left</content>
<content>ESRD GFR <15 on SENIOR WEB ARCHITECT</content>
<content></content> Sodium Level 139 meq/L 136-145 [facility] ([facility]) Carbon Dioxide Level 26 meq/L 21-32 [facility] ([facility]) Potassium Serum 4.6 meq/L 3.5-5.1 [facility] ([facility]) Chloride Level 106 meq/L 98-107 [facility] ([facility]) Calcium Level 11.8 mg/dL 8.8-10.2 [facility] ([facility]) Anion Gap 7 meq/L 8-16 [facility] Alt/SGPT 44 U/L 12-78 [facility]) Alkaline Phosphatase 116 U/L 45-117 [facility] ([facility]) Ast/Sgot 33 U/L 7-37 [facility] ([facility]) Bilirubin,Total 0.6 mg/dL 0.2-1.0 [facility] ([facility]) Total Protein 8.9 GM/DL 6.4-8.2 [facility] ([facility]) Albumin 3.2 GM/DL 3.2-5.2 [facility] ([facility]) Albumin/Globulin Ratio 0.6 1.2-2.2 [facility] ([facility]) ID Date Data Source [id number] 07/16/2020 02:59:00 PM EDT [facility] ([facility]) Name Value Range Interpretation Code Description Data Mariposa rce(s) Supporting Document(s) Erythrocyte sedimentation rate by Westergren method 68 mm/hr 0-30 [facility] ([facility]) ID Date Data Source [id number] 07/16/2020 02:59:00 PM EDT [facility] ([facility]) Name Value Range Interpretation Code Description Data Mariposa rce(s) Supporting Document(s) White Blood Count 7.6 10 4.0-10.0 [facility] ([facility]) Red Blood Count 4.29 10 4.00-5.40 [facility] ([facility]) Hemoglobin 13.9 g/dL 12.0-15.5 [facility] ([facility]) Hematocrit 43.3 % 36.0-47.0 [facility] ([facility]) Mean Corpuscular Hemoglobin 32.4 pg 27.0-33.0 [facility] ([facility]) Mean Corpuscular HGB Conc 32.1 g/dL 32.0-36.5 [facility] ([facility]) Mean Corpuscular Volume 100.9 fl 80.0-96.0 [facility] ([facility]) Red Cell Distribution Width 13.1 % 11.5-14.5 [facility] ([facility]) Platelet Count, Automated 175 10 150-450 [facility] ([facility]) Neutrophils % 73.1 % 36.0-66.0 [facility] ([facility]) Lymph % 18.1 % 24.0-44.0 [facility] Eos % 1.3 % 0.0-3.0 [facility] Dickson % 6.8 % 2.0-8.0 [facility] Baso % 0.3 % 0.0-1.0 [facility] ([facility]) Immature Granulocyte % 0.4 % 0-3.0 [facility] ([facility]) Nucleated Red Blood Cell % 0.0 % 0-0 [facility] Neutrophils # 5.6 10 1.5-8.5 [facility] ([facility] Lymph # 1.4 10 1.5-5.0 [facility]) Dickson # 0.5 10 0.0-0.8 [facility]) Eos # 0.1 10 0.0-0.5 [facility]) Baso # 0.0 10 0.0-0.2 [facility] ([facility]) ID Date Data Source [id number] 07/16/2020 02:59:00 PM EDT [facility] Name Value Range Interpretation Code Description Data Mariposa rce(s) Supporting Document(s) Appearance, Urine Laboratory test result [facility] PH,Urine 5.0 units 5.0-9.0 [facility] ([facility]) Color, Urine Laboratory test result [facility] Protein, Urine Auto Laboratory test result [facility] Specific [place] Urine Auto 1.028 1.002-1.035 [facility] Ketone, Urine Auto Laboratory test result [facility] Glucose, Urine (Ua) Auto Laboratory test result [facility] Urobilinogen, Urine Auto 4.0 mg/dL 0.0-2.0 [facility] Leukocyte Esterase, Urine Auto Laboratory test result [facility] ([facility]) Nitrite, Urine Auto Laboratory test result [facility] ([facility]) Bilirubin, Urine Auto Laboratory test result [facility] Blood, Urine Blood Laboratory test result [facility] WBC, Urine Auto 2 /HPF 0-3 [facility] ([facility]) Squamous Epithelial Cell Ur AU 0 /HPF 0-6 [facility] ([facility]) RBC, Urine Auto 2 /HPF 0-3 [facility] ([facility]) Bacteria, Urine Auto Laboratory test result [facility] ([facility]) Mucus, Urine Laboratory test result [facility] ([facility]) Hyaline Cast, Urine Auto 0 /LPF 0-1 [facility] ([facility]) ID Date Data Source [id number] 06/19/2020 02:43:00 PM EDT [facility] ([facility]) Name Value Range Interpretation Code Description Data Mariposa rce(s) Supporting Document(s) 3D Bi-Lateral Mammogram Laboratory test result [facility] ([facility]) Dexa/Bone Density Laboratory test result [facility] ([facility]) ID Date Data Source [id number] 06/17/2020 02:26:00 PM EDT [facility] ([facility]) Name Value Range Interpretation Code Description Data Mariposa rce(s) Supporting Document(s) Albumin % 41.3 % 55.8-66.1 [facility]) Qefxj-6-Bmjoudvq % 3.8 % 2.9-4.9 [facility] Rzgqu-9-Onrmzxofr % 8.9 % 7.1-11.8 [facility] ([facility]) Xpek-4-Pfjgmrdtg % 5.8 % 4.7-7.2 [facility] ([facility]) Qklt-2-Xmsoacgjm % 35.2 % 3.2-6.5 [facility] ([facility]) Gamma Globulin % 5.0 % 11.1-18.8 [facility] ([facility]) Albumin 3.39 GM/DL 3.29-5.55 [facility] Mkgpm-1-Hbepbzuuh 0.31 GM/DL 0.17-0.41 [facility] ([facility] Sbysk-0-Lxbpmsdep 0.73 GM/DL 0.42-0.99 [facility] ([facility] Pdjw-8-Mtrustunx 0.48 GM/DL 0.28-0.60 [facility] ([facility] Nrzn-3-Jgzfzsbpb 2.89 GM/DL 0.19-0.55 [facility] ([facility]) Total Protein 8.2 GM/DL 6.4-8.2 [facility] ([facility]) Gamma Globulins 0.41 GM/DL 0.65-1.58 [facility] ([facility]) Spep Interpretation Laboratory test result [facility] ([facility]) M-SPIKE NOTED IN BETA 2 REGION. CONCENTRATION = 2.85 GM/DL SUGGEST SERUM AND URINE IMMUNOTYPING. Laboratory test finding (navigational concept) Laboratory test result [facility] ([facility]) REV'D BY Delbert WERNER ID Date Data Source [id number] 06/17/2020 02:26:00 PM EDT [facility] ([facility]) Name Value Range Interpretation Code Description Data Mariposa rce(s) Supporting Document(s) Immunotyping Serum Iga Laboratory test result [facility] ([facility]) Immunotyping Serum Lambda Laboratory test result [facility] ([facility]) It Serum Interpretation Laboratory test result [facility] ([facility]) MONOCLONAL IGA LAMBDA Laboratory test finding (navigational concept) Laboratory test result [facility] ([facility]) ID Date Data Source [id number] 06/17/2020 02:25:00 PM EDT [facility] ([facility]) Name Value Range Interpretation Code Description Data Mariposa rce(s) Supporting Document(s) Glucose [Mass/volume] in Serum or Plasma 124 mg/dL 74-99 [facility] ([facility]) 100-125 mg/dL PRE-DIABETES/FASTING >126 mg/dL DIABETES/FASTING Urea nitrogen [Mass/volume] in Serum or Plasma 19 mg/dL 7-18 [facility] ([facility]) Creatinine 0.7 mg/dL 0.6-1.3 [facility] Sodium [Moles/volume] in Serum or Plasma 143 meq/L 136-145 [facility] ([facility]) Chloride [Moles/volume] in Serum or Plasma 103 meq/L 98-107 [facility] ([facility]) Potassium [Moles/volume] in Serum or Plasma 3.8 meq/L 3.5-5.1 [facility] ([facility]) Carbon dioxide, total [Moles/volume] in Serum or Plasma 29 meq/L 21 -32 [facility] ([facility]) Calcium [Mass/volume] in Serum or Plasma 10.2 mg/dL 8.5-10.1 [facility] ([facility]) NOTE: RESULT VERIFIED. Glomerular filtration rate/1.73 sq M pre dicted among non-blacks [Volume Rate/Area] in Serum or Plasma by Creatinine-based formula (MDRD) Laboratory test result [facility] ([facility] ) Glomerular filtration rate/1.73 sq M pre dicted among blacks [Volume Rate/Area] in Serum or Plasma by Creatinine-based formula (MDRD) Laboratory test result [facility] ([facility]) <content>CHRONIC KIDNEY DISEASE STAGING PER NKF</content>
<content></content>
<content>STAGE I & II GFR >= 60 NORMAL TO MILDLY DECREASED</content>
<content>STAGE III GFR 30-59 MODERATELY DECREASED</content>
<content>STAGE IV GFR 15-29 SEVERELY DECREASED</content>
<content>STAGE V GFR <15 VERY LITTLE GFR LEFT</content>
<content>ESRD GFR <15 ON SENIOR WEB ARCHITECT</content>
<content></content> ID Date Data Source [id number] 05/26/2020 11:17:00 AM EST [facility] ([facility]) Name Value Range Interpretation Code Description Data Mariposa rce(s) Supporting Document(s) Erythrocyte sedimentation rate by Westergren method 108 mm/hr 0-30 [facility] ([facility]) ID Date Data Source [id number] 05/26/2020 11:17:00 AM EST [facility] ([facility]) Name Value Range Interpretation Code Description Data Mariposa rce(s) Supporting Document(s) White Blood Count 4.3 10 4.0-10.0 [facility] ([facility]) Hematocrit 39.3 % 36.0-47.0 [facility] ([facility]) Hemoglobin 12.4 g/dL 12.0-15.5 [facility] Red Blood Count 3.96 10 4.00-5.40 [facility] ([facility]) Mean Corpuscular Hemoglobin 31.3 pg 27.0-33.0 [facility] ([facility]) Mean Corpuscular Volume 99.2 fl 80.0-96.0 [facility] ([facility]) Mean Corpuscular HGB Conc 31.6 g/dL 32.0-36.5 [facility] ([facility]) Red Cell Distribution Width 13.2 % 11.5-14.5 [facility] ([facility]) Platelet Count, Automated 193 10 150-450 [facility] ([facility]) Neutrophils % 62.7 % 36.0-66.0 [facility] ([facility]) Dickson % 7.4 % 2.0-8.0 [facility] Lymph % 27.8 % 24.0-44.0 [facility] Baso % 0.5 % 0.0-1.0 [facility] Eos % 1.4 % 0.0-3.0 [facility] Neutrophils # 2.7 10 1.5-8.5 [facility] ([facility]) Nucleated Red Blood Cell % 0.0 % 0-0 [facility] ([facility]) Immature Granulocyte % 0.2 % 0-3.0 [facility] ([facility]) Dickson # 0.3 10 0.0-0.8 [facility] ([facility] [facility] Lymph # 1.2 10 1.5-5.0 [facility] Baso # 0.0 10 0.0-0.2 [facility] Eos # 0.1 10 0.0-0.5 [facility] ID Date Data Source [id number] 05/26/2020 11:17:00 AM EST [facility] ([facility]) Name Value Range Interpretation Code Description Data Marip[place] rce(s) Supporting Document(s) C reactive protein [Mass/volume] in Serum or Plasma by High sensitivity method 0.52 mg/dL 0.00-0.30 [facility] ([facility] ) ID Date Data Source [id number] 05/26/2020 11:17:00 AM EST [facility] ([facility]) Name Value Range Interpretation Code Description Data Mariposa rce(s) Supporting Document(s) Glucose, Fasting 99 mg/dL 70-100 [facility] ([facility]) Creatinine For GFR 0.92 mg/dL 0.55-1.30 [facility] ([facility]) Blood Urea Nitrogen 29 mg/dL 7-18 [facility] ([facility]) Sodium Level 139 meq/L 136-145 [facility] ([facility]) Glomerular Filtration Rate Laboratory test result [facility] ([facility]) <content>Units are mL/min/1.73 m2</content>
<content></content>
<content>Chronic Kidney Disease Staging per NKF:</content>
<content></content>
<content>Stage I & II GFR >=60 Normal to Mildly Decreased</content>
<content>Stage III GFR 30- 59 Moderately Decreased</content>
<content>Stage IV GFR 15-29 Severely Decreased</content>
<content>Stage V GFR <15 Very Little GFR Left</content>
<content>ESRD GFR <15 on SENIOR WEB ARCHITECT</content>
<content></content> Potassium Serum 4.9 meq/L 3.5-5.1 [facility] ([facility]) Chloride Level 105 meq/L 98-107 [facility] ([facility]) Carbon Dioxide Level 26 meq/L 21-32 [facility] ([facility]) Anion Gap 8 meq/L 8-16 [facility] Calcium Level 10.8 mg/dL 8.8-10.2 [facility] ([facility]) ID Date Data Source [id number] 05/26/2020 11:17:00 AM EST [facility] ([facility]) Name Value Range Interpretation Code Description Data [place] rce(s) Supporting Document(s) aPTT in Blood by Coagulation assay 35.2 s 24.2-38.5 [facility] ([facility]) ID Date Data Source [id number] 05/26/2020 11:17:00 AM EST [facility] ([facility]) Name Value Range Interpretation Code Description Data [place] rce(s) Supporting Document(s) Inr 1.05 [facility] THERAPUTIC HUMAN INR VALUES INDICATIONS NORMAL RANGES PROPHYLAXIS/TREATMENT OF: VENOUS THROMBOSIS 2.0-3.0 PULMONARY EMBOLISM 2.0-3.0 PREVENTION OF SYSTEMIC EMBOLISM FROM: TISSUE HEART VALVES 2.0-3.0 ACUTE MYOCARDIAL INFARCTION 2.0-3.0 VALVULAR HEART DISEASE 2.0-3.0 ATRIAL FIBRILLATION 2.0-3.0 MECHANICAL VALVES(HIGH RISK) 2.5-3.5 RECURRENT MYOCARDIAL INFARCTION 2.5-3.5 Prothrombin Time 13.9 s 12.5-14.3 [facility] ([facility]) ID Date Data Source [id number] 05/05/2020 01:39:00 PM EST [facility] ([facility]) Name Value Range Interpretation Code Description Data [place] rce(s) Supporting Document(s) Parathyrin.intact [Mass/volume] in Serum or Plasma 26.3 pg/mL 18.5-88 .0 [facility] ([facility]) ID Date Data Source [id number] 05/05/2020 01:39:00 PM EST [facility] ([facility]) Name Value Range Interpretation Code Description Data [place] rce(s) Supporting Document(s) Calcidiol [Mass/volume] in Serum or Plasma 32.7 24.0-80.0 [facility] ([facility]) This test was performed using Fast[employer] I P Vitamin D immunoassay kit. Values obtained with different assay methods should not be used interchangeably. ID Date Data Source [id number] 05/05/2020 01:39:00 PM EST [facility] ([facility]) Name Value Range Interpretation Code Description Data [place] rce(s) Supporting Document(s) Thyrotropin [Units/volume] in Serum or Plasma by Detec tion limit <= 0.05 mIU/L 0.54 uIU/mL 0.36-3.74 [facility] ([facility] ) ID Date Data Source [id number] 05/05/2020 01:39:00 PM EST [facility] ([facility]) Name Value Range Interpretation Code Description Data [place] rce(s) Supporting Document(s) Glucose [Mass/volume] in Serum or Plasma 98 mg/dL 74-99 [facility] ([facility]) 100-125 mg/dL PRE-DIABETES/FASTING >126 mg/dL DIABETES/FASTING Urea nitrogen [Mass/volume] in Serum or Plasma 49 mg/dL 7-18 [facility] ([facility]) NOTE: BUN,CALCIUM VERIFIED Potassium [Moles/volume] in Serum or Plasma 4.5 meq/L 3.5-5.1 [facility] ([facility]) Creatinine 1.2 mg/dL 0.6-1.3 [facility] ([facility]) Sodium [Moles/volume] in Serum or Plasma 142 meq/L 136-145 [facility] ([facility]) Chloride [Moles/volume] in Serum or Plasma 104 meq/L 98-107 [facility] ([facility]) Carbon dioxide, total [Moles/volume] in Serum or Plasma 23 meq/L 21 -32 [facility] Glomerular filtration rate/1.73 sq M pre dicted among non-blacks [Volume Rate/Area] in Serum or Plasma by Creatinine-based formula (MDRD) 45 mL/min [facility] ([facility]) Calcium [Mass/volume] in Serum or Plasma 10.6 mg/dL 8.5-10.1 [facility] ([facility]) Glomerular filtration rate/1.73 sq M pre dicted among blacks [Volume Rate/Area] in Serum or Plasma by Creatinine-based formula (MDRD) 55 mL/min [facility] ([facility]) <content>CHRONIC KIDNEY DISEASE STAGING PER NKF</content>
<content></content>
<content>STAGE I & II GFR >= 60 NORMAL TO MILDLY DECREASED</content>
<content>STAGE III GFR 30-59 MODERATELY DECREASED</content>
<content>STAGE IV GFR 15-29 SEVERELY DECREASED</content>
<content>STAGE V GFR <15 VERY LITTLE GFR LEFT</content>
<content>ESRD GFR <15 ON SENIOR WEB ARCHITECT</content>
<content></content> ID Date Data Source [id number] 05/05/2020 01:39:00 PM EST [facility] ([facility]) Name Value Range Interpretation Code Description Data [place] rce(s) Supporting Document(s) Hemoglobin [Mass/volume] in Blood 13.1 g/dL 12.0-18.0 [facility] ([facility]) Leukocytes [#/volume] in Blood by Automated count 5.8 x10*3/UL 4.1-10 .9 [facility] ([facility]) Erythrocytes [#/volume] in Blood by Automated count 4.01 x10*6/UL 4.2 0-6.30 [facility] ([facility]) Hematocrit [Volume Fraction] of Blood by Automated count 37.5 % 3 7.0-51.0 [facility] ([facility]) MCV 93.4 fL 80.0-97.0 [facility] ([facility]) MCH 32.6 pg 26.0-32.0 [facility] ([facility]) MCHC 34.9 g/dL 31.0-38.0 [facility] ([facility]) Platelets [#/volume] in Blood by Automated count 191 x10*3/UL 140-440 [facility] ([facility]) MPV 8.6 FL 7.8-11.0 [facility] ([facility]) Erythrocyte distribution width [Ratio] by Automated count 13.8 % 11.6-13.7 [facility] ([facility]) Mid % 6.7 % 1.7-9.3 [facility] ([facility]) Lymph % 24.4 % 10.0-58.5 [facility] ([facility]) Mid # 0.4 x10*3/UL 0.1-0.6 [facility] ([facility]) Neut % 68.9 % 37.0-92.0 [facility] ([facility]) Lymph # 1.4 x10*3/UL 0.6-4.1 [facility] ([facility]) Neut # 4.0 x10*3/UL 2.0-7.8 [facility] ([facility]) ID Date Data Source [id number] 02/14/2020 11:57:00 AM EST [facility] ([facility]) Name Value Range Interpretation Code Description Data [place] rce(s) Supporting Document(s) Inr 6.49 Above upper panic limits [facility] THERAPUTIC HUMAN INR VALUES INDICATIONS NORMAL RANGES PROPHYLAXIS/TREATMENT OF: VENOUS THROMBOSIS 2.0-3.0 PULMONARY EMBOLISM 2.0-3.0 PREVENTION OF SYSTEMIC EMBOLISM FROM: TISSUE HEART VALVES 2.0-3.0 ACUTE MYOCARDIAL INFARCTION 2.0-3.0 VALVULAR HEART DISEASE 2.0-3.0 ATRIAL FIBRILLATION 2.0-3.0 MECHANICAL VALVES(HIGH RISK) 2.5-3.5 RECURRENT MYOCARDIAL INFARCTION 2.5-3.5 Prothrombin Time 58.4 s 12.5-14.3 [facility] ([facility]) ID Date Data Source [id number] 02/14/2020 11:56:00 AM EST [facility] Name Value Range Interpretation Code Description Data [place] rce(s) Supporting Document(s) Leukocytes [#/volume] in Blood by Automated count 6.0 x10*3/UL 4.1-10 .9 [facility] ([facility]) Hemoglobin [Mass/volume] in Blood 13.0 g/dL 12.0-18.0 [facility] ([facility]) Erythrocytes [#/volume] in Blood by Automated count 4.11 x10*6/UL 4.2 0-6.30 [facility] ([facility]) MCV 91.1 fL 80.0-97.0 [facility]) Hematocrit [Volume Fraction] of Blood by Automated count 37.5 % 3 7.0-51.0 [facility] ([facility]) MCH 31.6 pg 26.0-32.0 [facility] ([facility]) MCHC 34.7 g/dL 31.0-38.0 [facility] Erythrocyte distribution width [Ratio] by Automated count 14.2 % 11.6-13.7 [facility] ([facility]) Platelets [#/volume] in Blood by Automated count 243 x10*3/UL 140-440 [facility] ([facility]) MPV 8.3 FL 7.8-11.0 [facility] Lymph % 21.2 % 10.0-58.5 [facility] Mid % 5.8 % 1.7-9.3 [facility] Lymph # 1.2 x10*3/UL 0.6-4.1 [facility] ([facility]) Neut % 73.0 % 37.0-92.0 [facility] ([facility]) Neut # 4.4 x10*3/UL 2.0-7.8 [facility] ([facility]) Mid # 0.4 x10*3/UL 0.1-0.6 [facility] ([facility]) ID Date Data Source [id number] 02/14/2020 11:29:00 AM EST [facility] ([facility]) Name Value Range Interpretation Code Description Data [place] rce(s) Supporting Document(s) INR in Platelet poor plasma by Coagulation assay 7.9 [facility] ([facility]) ID Date Data Source [id number] 02/14/2020 10:58:00 AM EST [facility] ([facility]) Name Value Range Interpretation Code Description Data [place] rce(s) Supporting Document(s) Glucose [Mass/volume] in Serum or Plasma 100 mg/dL 74-99 [facility] ([facility]) 100-125 mg/dL PRE-DIABETES/FASTING >126 mg/dL DIABETES/FASTING Urea nitrogen [Mass/volume] in Serum or Plasma 17 mg/dL 7-18 [facility] ([facility]) Creatinine 0.7 mg/dL 0.6-1.3 [facility] ([facility]) Sodium [Moles/volume] in Serum or Plasma 141 meq/L 136-145 [facility] ([facility]) Potassium [Moles/volume] in Serum or Plasma 4.4 meq/L 3.5-5.1 [facility] ([facility]) Chloride [Moles/volume] in Serum or Plasma 103 meq/L 98-107 [facility] ([facility]) Carbon dioxide, total [Moles/volume] in Serum or Plasma 24 meq/L 21 -32 [facility] ([facility]) Calcium [Mass/volume] in Serum or Plasma 10.2 mg/dL 8.5-10.1 [facility] ([facility]) NOTE: RESULT VERIFIED. Glomerular filtration rate/1.73 sq M pre dicted among non-blacks [Volume Rate/Area] in Serum or Plasma by Creatinine-based formula (MDRD) Laboratory test result [facility] Glomerular filtration rate/1.73 sq M pre dicted among blacks [Volume Rate/Area] in Serum or Plasma by Creatinine-based formula (MDRD) Laboratory test result [facility] ([facility]) <content>CHRONIC KIDNEY DISEASE STAGING PER NKF</content>
<content></content>
<content>STAGE I & II GFR >= 60 NORMAL TO MILDLY DECREASED</content>
<content>STAGE III GFR 30-59 MODERATELY DECREASED</content>
<content>STAGE IV GFR 15-29 SEVERELY DECREASED</content>
<content>STAGE V GFR <15 VERY LITTLE GFR LEFT</content>
<content>ESRD GFR <15 ON SENIOR WEB ARCHITECT</content>
<content></content> ID Date Data Source [id number] 02/05/2020 11:20:00 AM EST [facility] Name Value Range Interpretation Code Description Data [place] rce(s) Supporting Document(s) INR in Platelet poor plasma by Coagulation assay 3.7 [facility] ID Date Data Source [id number] 01/31/2020 01:07:00 PM EDT [facility] Name Value Range Interpretation Code Description Data [place] rce(s) Supporting Document(s) INR in Platelet poor plasma by Coagulation assay 2.7 [facility] ID Date Data Source [id number] 01/31/2020 11:26:00 AM EDT [facility] Name Value Range Interpretation Code Description Data [place] rce(s) Supporting Document(s) Digoxin [Mass/volume] in Serum or Plasma 0.6 ng/mL 0.5-2.0 [facility] ([facility]) ID Date Data Source [id number] 01/31/2020 11:26:00 AM EDT [facility] ([facility] Name Value Range Interpretation Code Description Data [place] rce(s) Supporting Document(s) Digoxin [Mass/volume] in Serum or Plasma 0.6 ng/mL 0.5-2.0 [facility] ([facility]) ID Date Data Source [id number] 01/31/2020 11:25:00 AM EDT [facility] ([facility]) Name Value Range Interpretation Code Description Data [place] rce(s) Supporting Document(s) Urine PH 6.5 units 5.0-9.0 [facility]) Urine Appearance Laboratory test result [facility] ([facility]) Urine Color Laboratory test result [facility] ([facility]) Urine Leukocytes Laboratory test result [facility] ([facility]) Specific gravity of Urine 1.010 1.005-1.030 [facility] ([facility]) Urine Protein Laboratory test result 0-0 [facility] ([facility]) Urine Blood Laboratory test result [facility] ([facility]) Urine Nitrite Laboratory test result [facility] ([facility]) Glucose [Presence] in Urine Laboratory test result [facility] ([facility]) Urine Ketone Laboratory test result [facility] ([facility]) Urine Urobilinogen 0.2 mg/dL 0.2-1.0 [facility] ([facility]) Bilirubin.total [Mass/volume] in Serum or Plasma Laboratory test resu lt [facility] ([facility]) ID Date Data Source [id number] 01/31/2020 11:25:00 AM EDT [facility] ([facility]) Name Value Range Interpretation Code Description Data [place] rce(s) Supporting Document(s) Thyrotropin [Units/volume] in Serum or Plasma by Detec tion limit <= 0.05 mIU/L 0.16 uIU/mL 0.36-3.74 [facility] ([facility] ) ID Date Data Source [id number] 01/31/2020 11:25:00 AM EDT [facility] ([facility]) Name Value Range Interpretation Code Description Data [place] rce(s) Supporting Document(s) Urea nitrogen [Mass/volume] in Serum or Plasma 17 mg/dL 7-18 [facility] ([facility]) Glucose [Mass/volume] in Serum or Plasma 101 mg/dL 74-99 [facility] ([facility]) 100-125 mg/dL PRE-DIABETES/FASTING >126 mg/dL DIABETES/FASTING Creatinine 0.7 mg/dL 0.6-1.3 [facility] ([facility]) Sodium [Moles/volume] in Serum or Plasma 143 meq/L 136-145 [facility] ([facility]) Chloride [Moles/volume] in Serum or Plasma 104 meq/L 98-107 [facility] ([facility]) Potassium [Moles/volume] in Serum or Plasma 4.0 meq/L 3.5-5.1 [facility] ([facility]) Carbon dioxide, total [Moles/volume] in Serum or Plasma 30 meq/L 21 -32 [facility] ([facility]) Calcium [Mass/volume] in Serum or Plasma 10.7 mg/dL 8.5-10.1 [facility] ([facility]) NOTE: RESULT VERIFIED. Glomerular filtration rate/1.73 sq M pre dicted among non-blacks [Volume Rate/Area] in Serum or Plasma by Creatinine-based formula (MDRD) Laboratory test result [facility] Glomerular filtration rate/1.73 sq M pre dicted among blacks [Volume Rate/Area] in Serum or Plasma by Creatinine-based formula (MDRD) Laboratory test result [facility] <content>CHRONIC KIDNEY DISEASE STAGING PER NKF</content>
<content></content>
<content>STAGE I & II GFR >= 60 NORMAL TO MILDLY DECREASED</content>
<content>STAGE III GFR 30-59 MODERATELY DECREASED</content>
<content>STAGE IV GFR 15-29 SEVERELY DECREASED</content>
<content>STAGE V GFR <15 VERY LITTLE GFR LEFT</content>
<content>ESRD GFR <15 ON SENIOR WEB ARCHITECT</content>
<content></content> ID Date Data Source [id number] 01/31/2020 11:25:00 AM EDT [facility] ([facility]) Name Value Range Interpretation Code Description Data [place] rce(s) Supporting Document(s) Magnesium 2.1 mg/dL 1.8-2.4 [facility] ([facility]) ID Date Data Source [id number] 01/31/2020 11:25:00 AM EDT [facility] ([facility]) Name Value Range Interpretation Code Description Data [place] rce(s) Supporting Document(s) Erythrocytes [#/volume] in Blood by Automated count 4.36 x10*6/UL 4.2 0-6.30 [facility] Leukocytes [#/volume] in Blood by Automated count 6.2 x10*3/UL 4.1-10 .9 [facility] ([facility]) Hemoglobin [Mass/volume] in Blood 13.8 g/dL 12.0-18.0 [facility] ([facility]) Hematocrit [Volume Fraction] of Blood by Automated count 40.7 % 3 7.0-51.0 [facility] ([facility]) MCH 31.6 pg 26.0-32.0 [facility]) MCV 93.2 fL 80.0-97.0 [facility] ([facility]) MCHC 34.0 g/dL 31.0-38.0 [facility] ([facility]) Platelets [#/volume] in Blood by Automated count 236 x10*3/UL 140-440 [facility] ([facility]) Erythrocyte distribution width [Ratio] by Automated count 14.5 % 11.6-13.7 [facility] ([facility]) Lymph % 19.8 % 10.0-58.5 [facility]) MPV 7.8 FL 7.8-11.0 [facility]) Mid % 5.7 % 1.7-9.3 [facility] Neut % 74.5 % 37.0-92.0 [facility] Lymph # 1.2 x10*3/UL 0.6-4.1 [facility] ([facility]) Neut # 4.6 x10*3/UL 2.0-7.8 [facility] ([facility]) Mid # 0.4 x10*3/UL 0.1-0.6 [facility] ([facility]) ID Date Data Source [id number] 01/31/2020 11:25:00 AM EDT [facility] ([facility] Name Value Range Interpretation Code Description Data [place] rce(s) Supporting Document(s) Leukocytes [#/volume] in Blood by Automated count 6.2 x10*3/UL 4.1-10 .9 [facility] ([facility]) Hematocrit [Volume Fraction] of Blood by Automated count 40.7 % 3 7.0-51.0 [facility] ([facility]) Erythrocytes [#/volume] in Blood by Automated count 4.36 x10*6/UL 4.2 0-6.30 [facility] ([facility]) Hemoglobin [Mass/volume] in Blood 13.8 g/dL 12.0-18.0 [facility] MCHC 34.0 g/dL 31.0-38.0 [facility] MCV 93.2 fL 80.0-97.0 [facility] MCH 31.6 pg 26.0-32.0 [facility] ([facility] Erythrocyte distribution width [Ratio] by Automated count 14.5 % 11.6-13.7 [facility] ([facility]) Platelets [#/volume] in Blood by Automated count 236 x10*3/UL 140-440 [facility] ([facility]) Platelet mean volume [Entitic volume] in Blood by Colten 7.8 FL 7.8-11.0 [facility] ([facility]) Neut % 74.5 % 37.0-92.0 [facility] ([facility] Mid % 5.7 % 1.7-9.3 [facility] ([facility]) Lymphocytes/100 leukocytes in Blood by Automated count 19.8 % 10. 0-58.5 [facility] (Cardiology [facility]) Neutrophils [#/volume] in Semen by Manual count 4.6 x10*3/UL 2.0-7.8 [facility] ([facility]) Mid # 0.4 x10*3/UL 0.1-0.6 [facility] ([facility]iolog y [facility]) Lymph # 1.2 x10*3/UL 0.6-4.1 [facility] (Cardiolog y [facility]) ID Date Data Source [id number] 01/31/2020 11:24:00 AM EDT [facility] ([facility]) Name Value Range Interpretation Code Description Data [place] rce(s) Supporting Document(s) Thyroxine (T4) free [Mass/volume] in Serum or Plasma 1.33 ng/dL 0.76- 1.46 [facility] ID Date Data Source [id number] 01/28/2020 11:44:00 AM EDT [facility] ([facility]) Name Value Range Interpretation Code Description Data [place] rce(s) Supporting Document(s) INR in Platelet poor plasma by Coagulation assay 1.2 [facility] ([facility]) ID Date Data Source [id number] 01/24/2020 12:43:00 PM EDT [facility] ([facility]) Name Value Range Interpretation Code Description Data [place] rce(s) Supporting Document(s) INR in Platelet poor plasma by Coagulation assay 7.2 [facility] ([facility]) ID Date Data Source [id number] 01/24/2020 11:33:00 AM EDT [facility] ([facility]) Name Value Range Interpretation Code Description Data [place] rce(s) Supporting Document(s) Prothrombin Time 49.4 s 12.5-14.3 [facility] ([facility]) Inr 5.24 Above upper panic limits [facility] THERAPUTIC HUMAN INR VALUES INDICATIONS NORMAL RANGES PROPHYLAXIS/TREATMENT OF: VENOUS THROMBOSIS 2.0-3.0 PULMONARY EMBOLISM 2.0-3.0 PREVENTION OF SYSTEMIC EMBOLISM FROM: TISSUE HEART VALVES 2.0-3.0 ACUTE MYOCARDIAL INFARCTION 2.0-3.0 VALVULAR HEART DISEASE 2.0-3.0 ATRIAL FIBRILLATION 2.0-3.0 MECHANICAL VALVES(HIGH RISK) 2.5-3.5 RECURRENT MYOCARDIAL INFARCTION 2.5-3.5 ID Date Data Source [id number] 01/24/2020 11:33:00 AM EDT [facility] ([facility]) Name Value Range Interpretation Code Description Data [place] rce(s) Supporting Document(s) Erythrocytes [#/volume] in Blood by Automated count 4.37 x10*6/UL 4.2 0-6.30 [facility] ([facility]) Leukocytes [#/volume] in Blood by Automated count 6.6 x10*3/UL 4.1-10 .9 [facility] ([facility]) Hemoglobin [Mass/volume] in Blood 13.7 g/dL 12.0-18.0 [facility] ([facility]) Hematocrit [Volume Fraction] of Blood by Automated count 40.2 % 3 7.0-51.0 [facility] ([facility]) MCV 91.9 fL 80.0-97.0 [facility]) MCH 31.4 pg 26.0-32.0 [facility]) MCHC 34.2 g/dL 31.0-38.0 [facility] ([facility]) Erythrocyte distribution width [Ratio] by Automated count 13.7 % 11.6-13.7 [facility] ([facility]) Platelets [#/volume] in Blood by Automated count 251 x10*3/UL 140-440 [facility] ([facility]) MPV 8.3 FL 7.8-11.0 [facility]) Lymph % 16.8 % 10.0-58.5 [facility] Mid % 4.7 % 1.7-9.3 [facility] Lymph # 1.1 x10*3/UL 0.6-4.1 [facility] ([facility]) Neut % 78.5 % 37.0-92.0 [facility] Mid # 0.3 x10*3/UL 0.1-0.6 [facility] ([facility]) Neut # 5.2 x10*3/UL 2.0-7.8 [facility] ([facility]) ID Date Data Source [id number] 01/17/2020 12:07:00 PM EDT [facility] ([facility]) Name Value Range Interpretation Code Description Data Mariposa rce(s) Supporting Document(s) INR in Platelet poor plasma by Coagulation assay 1.3 [facility] ([facility]) ID Date Data Source [id number] 12/14/2019 12:44:00 PM EDT [facility] ([facility]) Name Value Range Interpretation Code Description Data Mariposa rce(s) Supporting Document(s) INR in Platelet poor plasma by Coagulation assay 3.7 [facility] ([facility]) ID Date Data Source [id number] 12/05/2019 03:27:00 PM EDT [facility] ([facility]) Name Value Range Interpretation Code Description Data Mariposa rce(s) Supporting Document(s) INR in Platelet poor plasma by Coagulation assay 1.3 [facility] ([facility]) Procedure Social History Code Duration Value Status Description Data Source(s ) Smoking 01/22/2021 12:00:00 AM EDT Current Smoker completed Curre nt Smoker [id number] ([facility]) Vital Signs ID Date Data Source UNK Name Value Range Interpretation Code Description Data Source(s) Systolic blood pressure 122 mm[Hg] 122 mm[Hg] M [facility]ENT ([facility]) Diastolic blood pressure 76 mm[Hg] 76 mm[Hg] [facility] ([facility]) Heart rate 86 /min 86 /min [facility] ([facility]) Body height 66 [in_i] 66 [in_i] [facility] ([facility]) 5'6" Body weight 223.00 [lb_av] 223.00 [lb_av] [facility] T ([facility]) Body mass index (BMI) [Ratio] 36.0 kg/m2 36.0 k g/m2 [facility] ([facility]) Diastolic blood pressure 68 mm[Hg] 68 mm[Hg] [facility] ([facility]) Heart rate 86 /min 86 /min [facility] ([facility]) Systolic blood pressure 124 mm[Hg] 124 mm[Hg] [facility] ([facility]) Body height 66 [in_i] 66 [in_i] [facility] ([facility]) 5'6" Body weight 217.00 [lb_av] 217.00 [lb_av] MED[facility] T ([facility]) Body mass index (BMI) [Ratio] 35.0 kg/m2 35.0 k g/m2 [facility] ([facility]) Systolic blood pressure 114 mm[Hg] 114 mm[Hg] [facility] ([facility] [place]) Diastolic blood pressure 76 mm[Hg] 76 mm[Hg] [facility] ([facility] [place]) Body height 66 [in_i] 66 [in_i] [facility] ([facility]) 5'6" Body weight 221.50 [lb_av] 221.50 [lb_av] [facility] [place] Body mass index (BMI) [Ratio] 35.7 kg/m2 35.7 k g/m2 [facility] ([facility] [place]) [place] body weight 130 [lb_av] 130 [lb_av] [facility] [place] Body weight 100.472 kg 100.472 kg [facility] ([facility]) Body surface area Derived from formula 2.09 m2 2.09 m2 [facility] ([facility] [place]) Systolic blood pressure 136 mm[Hg] 136 mm[Hg] [facility] RT Arm Diastolic blood pressure 88 mm[Hg] 88 mm[Hg] [facility] ([facility]) RT Arm Heart rate 120 /min 120 /min [facility] ([facility]) Body height 66 [in_i] 66 [in_i] [facility] ([facility]) 5'6" Body weight 223.50 [lb_av] 223.50 [lb_av] [facility] T ([facility]) Body mass index (BMI) [Ratio] 36.1 kg/m2 36.1 k g/m2 [facility] ([facility]) Body height 66 [in_i] 66 [in_i] [facility] ([facility]) 5'6" [place] body weight 130 [lb_av] 130 [lb_av] [facility] T ([facility] [place]) Body weight 102.060 kg 102.060 kg [facility] ([facility]) Body mass index (BMI) [Ratio] 36.3 kg/m2 36.3 k g/m2 [facility] ([facility] [place]) Body surface area Derived from formula 2.10 m2 2.10 m2 [facility] ([facility] [place]) Diastolic blood pressure 77 mm[Hg] 77 mm[Hg] [facility] ([facility] [place]) Body weight 225.00 [lb_av] 225.00 [lb_av] [facility] T ([facility] [place]) Systolic blood pressure 145 mm[Hg] 145 mm[Hg] [facility] ([facility] [place]) Systolic blood pressure 148 mm[Hg] 148 mm[Hg] [facility] ([facility]) RT Arm Diastolic blood pressure 72 mm[Hg] 72 mm[Hg] [facility] ([facility]) RT Arm Systolic blood pressure 140 mm[Hg] 140 mm[Hg] [facility] ([facility]) Diastolic blood pressure 70 mm[Hg] 70 mm[Hg] [facility] ([facility]) Heart rate 80 /min 80 /min [facility] ([facility]) Body height 66 [in_i] 66 [in_i] [facility] ([facility]) 5'6" Body weight 219.00 [lb_av] 219.00 [lb_av] [facility] T ([facility]) Body mass index (BMI) [Ratio] 35.3 kg/m2 35.3 k g/m2 [facility] ([facility]) Body weight 190.00 [lb_av] 190.00 [lb_av] [facility] T ([facility] ) Body mass index (BMI) [Ratio] 30.7 kg/m2 30.7 k g/m2 [facility] Body height 66 [in_i] 66 [in_i] [facility] ([facility] ) 5'6" Body mass index (BMI) [Ratio] 35.7 kg/m2 35.7 k g/m2 [facility] ([facility] ) Body temperature 96.1 [degF] 96.1 [degF] [facility] ([facility] ) Body height 64.5 [in_i] 64.5 [in_i] [facility] ([facility] ) 5'4.50" Body weight 211.50 [lb_av] 211.50 [lb_av] [facility] T ([facility] ) Systolic blood pressure 142 mm[Hg] 142 mm[Hg] M EDENT ([facility]) Body weight 222.00 [lb_av] 222.00 [lb_av] [facility] T ([facility]) Systolic blood pressure 154 mm[Hg] 154 mm[Hg] M EDENT ([facility]) RT Arm Diastolic blood pressure 78 mm[Hg] 78 mm[Hg] [facility] ([facility]) RT Arm Diastolic blood pressure 80 mm[Hg] 80 mm[Hg] [facility] ([facility]) Heart rate 96 /min 96 /min [facility] ([facility]) Body height 66 [in_i] 66 [in_i] [facility] ([facility]) 5'6" Body mass index (BMI) [Ratio] 35.8 kg/m2 35.8 k g/m2 [facility] ([facility]) Systolic blood pressure 164 mm[Hg] 164 mm[Hg] [facility] Diastolic blood pressure 90 mm[Hg] 90 mm[Hg] [facility] ([facility], ) Body height 66 [in_i] 66 [in_i] [facility] ([facility], ) 5'6" Body weight 225.00 [lb_av] 225.00 [lb_av] [facility] T ([facility], ) Body mass index (BMI) [Ratio] 36.3 kg/m2 36.3 k g/m2 [facility] ([facility] ) [place] body weight 130 [lb_av] 130 [lb_av] [facility] T ([facility], ) Body weight 102.060 kg 102.060 kg [facility] ([facility]) Body surface area Derived from formula 2.10 m2 2.10 m2 [facility] ([facility] [place]) Body weight 220.00 [lb_av] 220.00 [lb_av] MED[facility] T ([facility]) Body height 65 [in_i] 65 [in_i] [facility] 5'5" Body mass index (BMI) [Ratio] 36.6 kg/m2 36.6 k g/m2 [facility] ([facility]) Heart rate 65 /min 65 /min [facility] ([facility] Systolic blood pressure--sitting 136 mm[Hg] 136 mm[Hg] [facility] ([facility]) Ra, large cuff Diastolic blood pressure--sitting 84 mm[Hg] 84 mm[Hg] [facility] ([facility]) Ra, large cuff Body mass index (BMI) [Ratio] 35.7 kg/m2 35.7 k g/m2 [facility] ([facility]) Body height 66 [in_i] 66 [in_i] [facility] ([facility]) 5'6" Body weight 221.00 [lb_av] 221.00 [lb_av] [facility] T ([facility]) Diastolic blood pressure 70 mm[Hg] 70 mm[Hg] [facility] ([facility]) RT Arm Heart rate 60 /min 60 /min [facility] ([facility]) Body height 66 [in_i] 66 [in_i] [facility] ([facility]) 5'6" Body mass index (BMI) [Ratio] 35.7 kg/m2 35.7 k g/m2 [facility] ([facility]) Systolic blood pressure 148 mm[Hg] 148 mm[Hg] M EDENT ([facility]) RT Arm Body weight 221.00 [lb_av] 221.00 [lb_av] [facility] T ([facility]) Body weight 226.00 [lb_av] 226.00 [lb_av] [facility] T ([facility]) Body mass index (BMI) [Ratio] 36.5 kg/m2 36.5 k g/m2 SU[facility] ([facility]) Body weight 226.00 [lb_av] 226.00 [lb_av] SAY Guerrier ([facility]) Systolic blood pressure 138 mm[Hg] 138 mm[Hg] M SOLITARIO ([facility]) Diastolic blood pressure 90 mm[Hg] 90 mm[Hg] SUMAYA ([facility]) Body height 66 [in_i] 66 [in_i] SU[facility] ([facility]) 5'6" Body weight 217.00 [lb_av] 217.00 [lb_av] SAY T ([facility]) Body weight 220.00 [lb_av] 220.00 [lb_av] SAY T ([facility]) Body weight 216.00 [lb_av] 216.00 [lb_av] SAY T ([facility])
[2021-01-27 18:30] LABS: DIGOXIN LEVEL 0.4 NG/ML (0.5-2.0)
[2021-01-27] MEDS ORDERED: FAMO20TA PO (19:08)
--- NOTE | 2021-01-27 19:08 | HPEPDOC ---
[facility] Medical History & Physical Date of Admission Jan 27, 2021 Date of Service: Jan 27, 2021 Attending Physician: SIOBHAN RATLIFF MD History and Physical CHIEF COMPLAINT: SOB HISTORY OF PRESENT ILLNESS: 65-year-old W with past medical history of hypertension, atrial fibrillation, GERD, history of pulmonary emboli and DVT on eliquis, who presented to [facility] emergency dept with SOB and orthopnea for 3 days now. Of note, she was in the ED yesterday and was discharged home and today she is even more short of breath. She otherwise denied ailin chest pain, palpitations, recent fevers, chills, cough, congestion, asymmetric swelling, bleeding in urine, stool or emesis, dizziness or recent LOC. In the ER, VS showed showed she was hypertensive to 157/96, I suspect hypoxemic as she was placed on 2L NC, and afebrile. Workup revealed WBC 6, hgb 13, platelets 215, na 140, K 4.2, Cr 1.28, proBNP 8578, TSH 0.03, LFTs wnl, while CXR showed potential interstitial edema while CTA chest was negative for opacities, effusions or PEs. She was given 40mg of IV lasix and is recommended for admission for CHF exacerbation. Of note, she had a TTE recently that showed EF of 70% and grade 1 diastolic dysfunction. ROS: Negative except for what is mentioned above. PAST MEDICAL HISTORY: 1. HTN 2. atrial fibrillation 3. GERD 4. Hx of PE 5. Hx of DVTs 6. obesity 7. Osteoarthritis PAST SURGICAL HISTORY: 1. Right shoulder surgery 2. Vein stripping in bilateral lower ext 3. Cholecystectomy 4. Tonsillectomy SOCIAL HISTORY: Smoker 6-7 cigarettes/day, 40 years. Social alcohol use, denies illicit drug use. Lives locally alone. Uses a walker to ambulate, she has no stairs in home. Full code. FAMILY HISTORY: Father: Lung disease. at 75 years of age Mother: Angina, CVA, HTN. 75 years of age ALLERGIES: Please see below. CURRENT MEDICATIONS: Please see below PHYSICAL EXAMINATION: VITAL SIGNS: Please see below CONSTITUTIONAL: No acute distress, resting comfortably, AAO x 3 EYES: PERRLA, EOM intact HENT, MOUTH: Normocephalic, atraumatic, moist mucous membranes NECK: SUPPLE, no JVD, no lymphadenopathy, no carotid bruit CV: Tachycardic, irregularly irregular rhythm, S1S2 normal, no murmurs/rubs/gallops RESPIRATORY: Clear to auscultation bilaterally, no rales/rhonchi/wheezes GI: obese abdomen, BS positive in 4 quadrants, soft, nontender, nondistended, n o rebound or guarding, no organomegaly EXT:No cyanosis, clubbing, joint deformity, extremity edema INTEGUMENTARY: Chronic hyperpigmentation of bilateral lower ext, chronic. Intact, no rashes, no lesions, no erythema NEUROLOGIC: Cranial Nerves II-XII are intact, no focal deficits PSYCHIATRIC: Mood and affect are normal LABORATORY DATA: reviewed above IMAGING: reviewed ASSESSMENT: 65-year-old W with past medical history of hypertension, atrial fibrillation, GERD, history of pulmonary emboli and DVT on eliquis, who presented to [facility] emergency dept with SOB and orthopnea for 3 days now being admitted for HFpEF exacerbation. PLAN: HFpEF exacerbation: -lasix 40 IV q8H -2L/24h fluid restriction, 2g sodium -daily weights -strict I/Os -daily BMP -hold HCTZ while on loop diuretic -TTE Chronic atrial fibrillation, HR in low 100s: patient of Dr. Graham, on fleicanide, metop and digoxin at baseline -continue fleicanide, metop and digoxin -telemetry -daily BMP and mag HTN -C/w home metop, hold HCTZ, starting lasix 40 IV Q8H Graves? -continue home methimazole -low TSH, check free T4 Hx of DVT, PE -continue home eliquis GERD -C/w famotidine HLD: -continue atorvastatin CAD: -continue ASA 81, statin DVT px -Eliquis Vital Signs Vital Signs Date Time Temp Pulse Resp B/P (MAP) Pulse Ox O2 Delivery O2 Flow Rate FiO2 01/27/21 16:45 120 21 157/96 (116) 98 Nasal Cannula 2.0 Laboratory Data Labs 24H Laboratory Tests 2 01/27/21 14:34: Neutrophils (%) (Auto) , Nucleated Red Blood Cells % (auto) 0.0, Neutrophils 61, Lymphocytes (Manual) 29, Monocytes (Manual) 5, Eosinophils (Manual) 3, Atypical Lymphocytes 2, Toxic Vacuolation 1+, Platelet Estimate NORMAL 01/27/21 14:42: Anion Gap 7L, Glomerular Filtration Rate 44.4L, Calcium Level 10.7H, Total Bilirubin 0.6, Direct Bilirubin 0.3H, Aspartate Amino Transf (AST/SGOT) 24, Alanine Aminotransferase (ALT/SGPT) 27, Alkaline Phosphatase 106, Total Creatine Kinase 34, Creatine Kinase MB < 1.0, Creatine Kinase MB Relative Index 2.94, Troponin I < 0.02, LF-Ddc-K-Type Natriuretic Peptide 8578H, Total Protein 8.4H, Albumin 2.7L, Albumin/Globulin Ratio 0.5L, Lipase 110, Thyroid Stimulating Horm one (TSH) 0.034L CBC/BMP Laboratory Tests 01/27/21 14:34 01/27/21 14:42 Microbiology Microbiology 01/27/21 Respiratory Virus Panel (PCR) ([facility]), Received Pending Home Medications Scheduled Apixaban (Eliquis) 5 Mg Tablet, 1 TAB PO BID Aspirin (Ecotrin) 81 Mg Tablet.dr, 81 MG PO DAILY Atorvastatin Calcium (Atorvastatin Calcium) 20 Mg Tablet, 20 MG PO QPM Bupropion Hcl (Bupropion Xl) 150 Mg Tab.er.24h, 1 TAB PO DAILY Digoxin (Digoxin) 250 Mcg Tablet, 250 MCG PO QPM Famotidine (Famotidine) 40 Mg Tablet, 40 MG PO QPM Flecainide Acetate (Flecainide Acetate) 100 Mg Tablet, 100 MG PO BID Fluoxetine Hcl (Fluoxetine HCl) 20 Mg Capsule, 20 MG PO DAILY Guaifenesin (Mucus Relief) 400 Mg Tablet, 400 MG PO QHS Hydrochlorothiazide (Hydrochlorothiazide) 25 Mg Tablet, 12.5 MG PO DAILY Methimazole (Methimazole) 10 Mg Tablet, 10 MG PO DAILY Metoprolol Tartrate (Metoprolol Tartrate) 25 Mg Tablet, 25 MG PO BID Multivitamins (Thera M Plus Tablet) 1 Each Tablet, 1 TAB PO DAILY Vitamin E (Vitamin E) 400 Unit Capsule, 400 UNIT PO DAILY Scheduled PRN Acetaminophen (Tylenol Extra Strength) 500 Mg Tablet, 1,000 MG PO Q6H PRN for PAIN / FEVER Allergies Coded Allergies: ibuprofen (Verified Adverse Reaction, Mild, GI, 10/01/19) A-FIB/CHADSVASC A-FIB History Current/History of A-Fib/PAF?: Yes Current PO Anticoag Therapy: Yes Treatment Treatment ordered: Apixaban SIOBHAN RATLIFF MD Jan 27, 2021 18:23
[2021-01-27] MEDS ORDERED: HOME MED LIST COMPLETE! XX SCH (19:10)
[2021-01-27 20:26] VITALS: BP 131/93
[2021-01-27] MEDS: DIGOXIN 0.25 MG TAB PO SCH (21:01)
[2021-01-27] MEDS: FAMOTIDINE 20 MG TAB PO SCH (21:02)
[2021-01-27] MEDS: METOPROLOL TART 25 MG TABLET PO SCH (21:02)
[2021-01-27] MEDS: ATORVASTATIN 20 MG TAB PO SCH (21:02)
[2021-01-27] MEDS: APIXABAN 5 MG TAB (ELIQUIS) PO SCH (21:02)
[2021-01-27] MEDS: FLECAINIDE 50MG TABLET PO SCH (21:11)
[2021-01-28] MEDS: FUROSEMIDE 40MG/4ML VIAL (J1940) IV SCH ×3 (00:16→15:19)
[2021-01-28] MEDS: ACETAMINOPHEN TAB 650MG DOSE (2X325MG) PO PRN ×2 (01:54→14:16)
[2021-01-28 06:00] VITALS: BP 146/70
[2021-01-28 06:10] LABS: HEMATOCRIT 40.5 % (36.0-47.0); MEAN CORPUSCULAR HEMOGLOBIN 31.6 pg (27.0-33.0); MEAN CORPUSCULAR HGB CONC 32.1 g/dl (32.0-36.5); MEAN CORPUSCULAR VOLUME 98.3 fl (80.0-96.0); PLATELET COUNT, AUTOMATED 180 10^3/uL (150-450); RED BLOOD COUNT 4.12 10^6/uL (4.00-5.40); WHITE BLOOD COUNT 5.4 10^3/uL (4.0-10.0)
[2021-01-28 06:34] LABS: CALCIUM LEVEL 10.7 MG/DL (8.8-10.2); CREATININE FOR GFR 1.09 MG/DL (0.55-1.30); GLOMERULAR FILTRATION RATE 53.5 (>45); MAGNESIUM LEVEL 2.1 MG/DL (1.8-2.4)
[2021-01-28] MEDS: FLECAINIDE 50MG TABLET PO SCH ×2 (08:41→20:02)
[2021-01-28] MEDS: buPROPion **XL** TABLET 150MG (WELLBUTRIN XL) PO SCH (08:41)
[2021-01-28] MEDS: APIXABAN 5 MG TAB (ELIQUIS) PO SCH ×2 (08:42→20:00)
[2021-01-28] MEDS: VITAMIN E 400 INTERNATIONAL UNITS CAP PO SCH (08:42)
[2021-01-28] MEDS: ASPIRIN 81 MG CHEW TABLET PO SCH (08:42)
[2021-01-28] MEDS: FLUoxetine 20 MG CAP PO SCH (08:42)
[2021-01-28] MEDS: METOPROLOL TART 25 MG TABLET PO SCH ×2 (08:44→20:01)
[2021-01-28 09:48] LABS: FREE T4 1.92 NG/DL (0.76-1.46)
[2021-01-28 14:00] VITALS: BP 125/78
[2021-01-28] MEDS: ATORVASTATIN 20 MG TAB PO SCH (20:00)
[2021-01-28] MEDS: FAMOTIDINE 20 MG TAB PO SCH (20:00)
[2021-01-28] MEDS: DIGOXIN 0.25 MG TAB PO SCH (20:00)
--- NOTE | 2021-01-28 20:14 | IPNPDOC ---
Text Note Date of Service The patient was seen on 01/28/21. NOTE SUBJECTIVE: -No acute complaints, remains on 2L NC this morning OBJECTIVE: VITAL SIGNS: Please see below CONSTITUTIONAL: No acute distress, resting comfortably, AAO x 3 EYES: PERRLA, EOM intact HENT, MOUTH: Normocephalic, atraumatic, moist mucous membranes NECK: SUPPLE, no JVD, no lymphadenopathy, no carotid bruit CV: Irregularly irregular rhythm, S1S2 normal, no murmurs/rubs/gallops RESPIRATORY: Clear to auscultation bilaterally, no rales/rhonchi/wheezes GI: obese abdomen, BS positive in 4 quadrants, soft, nontender, nondistended, no rebound or guarding, no organomegaly EXT:No cyanosis, clubbing, joint deformity, extremity edema INTEGUMENTARY: Chronic hyperpigmentation of bilateral lower ext, chronic. Intact, no rashes, no lesions, no erythema NEUROLOGIC: Cranial Nerves II-XII are intact, no focal deficits PSYCHIATRIC: Mood and affect are normal LABORATORY DATA: reviewed WBC 5.4 Hgb 13 Platelets 180 na 140 K 4 Cr 0.9 mag 2.1 IMAGING: CTA chest: There is excellent visualization of the pulmonary arterial vasculature. There are no focal filling defects present that would be considered consistent with acute pulmonary emboli. There are no pleural or pericardial effusions. There is no significant change in appearance of the imaged upper abdomen or imaged osseous structures. There is bilateral low-density adrenal gland thickening status quo. There is no mediastinal or hilar adenopathy, however, note is again made of bulky thyromegaly. There is a borderline right hilar lymph node with a short axis dimension of 1 cm. This cannot be compared to the latest prior exam since no intravenous contrast was administered for that exam. When compared to the next latest prior CT of the chest which was obtained after intravenous contrast this lymph node is unchanged. That examination is dated 02/22/2019. Evaluation of the lung [place] shows a few scattered bibasilar asymmetric densities likely subsegmental atelectatic changes. No new abnormal patchy opacities have developed. Scattered subsegmental atelectatic changes are seen throughout the lung [place]. IMPRESSION: There is no evidence of acute disease. Findings as described above. CXR: The technique utilized in obtaining the radiograph has magnified the cardiac silhouette and accentuated the interstitial markings. There is global cardiomegaly accentuated by technique status quo. The interstitial markings have increased slightly compared to the prior exam no patchy opacities or pleural effusions have developed. There is no change in the osseous structures. IMPRESSION: Global cardiomegaly with mild interstitial edema suspected. ASSESSMENT: 65-year-old W with past medical history of hypertension, atrial fibrillation, GERD, history of pulmonary emboli and DVT on eliquis, who presented to [facility] emergency dept with worsening SOB and orthopnea for 3 days and admitted for HFpEF exacerbation. PLAN: HFpEF exacerbation: -continue lasix 40 IV q8H -2L/24h fluid restriction, 2g sodium -daily weights -strict I/Os -daily BMP -holding HCTZ while on loop diuretic -f/u TTE Chronic atrial fibrillation, HR in low 100s: patient of Dr. Graham, on fleicanide, metop and digoxin at baseline -continue fleicanide, metop and digoxin -telemetry -daily BMP and mag HTN -C/w home metop, holding HCTZ, on lasix 40 IV Q8H Graves? -continue home methimazole -low TSH, f/u free T4 Hx of DVT, PE -continue home eliquis GERD -C/w famotidine HLD: -continue atorvastatin CAD: -continue ASA 81, statin DVT px -Eliquis VS,Fishbone, I+O VS, Fishbone, I+O Laboratory Tests 01/27/21 14:34 01/27/21 14:42 01/28/21 05:50 Vital Signs Date Time Temp Pulse Resp B/P (MAP) Pulse Ox O2 Delivery O2 Flow Rate FiO2 01/28/21 06:00 97.4 86 18 146/70 (95) 97 Nasal Cannula 2.0 I&O- Last 24 Hours up to 6 AM 01/28/21 06:00 Intake Total 180 ml Output Total 1400 ml Balance -1220 ml SIOBHAN RATLIFF MD Jan 28, 2021 08:39
[2021-01-28 22:00] VITALS: BP 152/85
[2021-01-29] MEDS: FUROSEMIDE 40MG/4ML VIAL (J1940) IV SCH (00:32)
[2021-01-29 06:00] VITALS: BP 119/76
[2021-01-29 06:43] LABS: HEMATOCRIT 40.3 % (36.0-47.0); MEAN CORPUSCULAR HEMOGLOBIN 31.1 pg (27.0-33.0); MEAN CORPUSCULAR HGB CONC 32.3 g/dl (32.0-36.5); MEAN CORPUSCULAR VOLUME 96.4 fl (80.0-96.0); PLATELET COUNT, AUTOMATED 171 10^3/uL (150-450); RED BLOOD COUNT 4.18 10^6/uL (4.00-5.40); WHITE BLOOD COUNT 5.9 10^3/uL (4.0-10.0)
[2021-01-29 07:07] LABS: BLOOD UREA NITROGEN 32 MG/DL (7-18); CALCIUM LEVEL 10.8 MG/DL (8.8-10.2); CARBON DIOXIDE LEVEL 28 MEQ/L (21-32); CHLORIDE LEVEL 105 MEQ/L (98-107); CREATININE FOR GFR 1.28 MG/DL (0.55-1.30); GLOMERULAR FILTRATION RATE 44.4 (>45); GLUCOSE, FASTING 107 MG/DL (70-100); MAGNESIUM LEVEL 2.1 MG/DL (1.8-2.4); POTASSIUM SERUM 3.7 MEQ/L (3.5-5.1); SODIUM LEVEL 138 MEQ/L (136-145)
[2021-01-29] MEDS: APIXABAN 5 MG TAB (ELIQUIS) PO SCH ×2 (08:02→20:21)
[2021-01-29] MEDS: FLUoxetine 20 MG CAP PO SCH (08:03)
[2021-01-29] MEDS: buPROPion **XL** TABLET 150MG (WELLBUTRIN XL) PO SCH (08:03)
[2021-01-29] MEDS: ASPIRIN 81 MG CHEW TABLET PO SCH (08:03)
[2021-01-29] MEDS: VITAMIN E 400 INTERNATIONAL UNITS CAP PO SCH (08:03)
[2021-01-29] MEDS: FLECAINIDE 50MG TABLET PO SCH ×2 (08:03→20:21)
[2021-01-29 08:04] LABS: CK-MB VALUE MASS < 1.0 NG/ML (<3.6); CPK CREATINE PHOSPHOKINASE 47 U/L (26-192); MB/CK RELATIVE INDEX 2.13 (< OR =4); TROPONIN I 0.02 NG/ML (< 0.10)
[2021-01-29] MEDS: METOPROLOL TART 25 MG TABLET PO SCH ×2 (08:07→20:22)
[2021-01-29] MEDS: FUROSEMIDE 40 MG TAB PO SCH (10:10)
[2021-01-29] MEDS ORDERED: FURO20TA2 PO (11:22)
--- NOTE | 2021-01-29 11:29 | IPNPDOC ---
Text Note Date of Service The patient was seen on 01/29/21. NOTE SUBJECTIVE: -Now on room air, but complaining that she becomes winded with exertion OBJECTIVE: VITAL SIGNS: Please see below CONSTITUTIONAL: No acute distress, resting comfortably, AAO x 3 EYES: PERRLA, EOM intact HENT, MOUTH: Normocephalic, atraumatic, moist mucous membranes NECK: SUPPLE, no JVD, no lymphadenopathy, no carotid bruit CV: Irregularly irregular rhythm, S1S2 normal, no murmurs/rubs/gallops RESPIRATORY: Clear to auscultation bilaterally, no rales/rhonchi/wheezes GI: obese abdomen, BS positive in 4 quadrants, soft, nontender, nondistended, no rebound or guarding, no organomegaly EXT:No cyanosis, clubbing, joint deformity, extremity edema INTEGUMENTARY: Chronic hyperpigmentation of bilateral lower ext, chronic. Intact, no rashes, no lesions, no erythema NEUROLOGIC: Cranial Nerves II-XII are intact, no focal deficits PSYCHIATRIC: Mood and affect are normal LABORATORY DATA: reviewed Cr 05.01 IMAGING: CTA chest: There is excellent visualization of the pulmonary arterial vasculature. There are no focal filling defects present that would be considered consistent with acute pulmonary emboli. There are no pleural or pericardial effusions. There is no significant change in appearance of the imaged upper abdomen or imaged osseous structures. There is bilateral low-density adrenal gland thickening status quo. There is no mediastinal or hilar adenopathy, however, note is again made of bulky thyromegaly. There is a borderline right hilar lymph node with a short axis dimension of 1 cm. This cannot be compared to the latest prior exam since no intravenous contrast was administered for that exam. When compared to the next latest prior CT of the chest which was obtained after intravenous contrast this lymph node is unchanged. That examination is dated 02/22/2019. Evaluation of the lung [place] oca shows a few scattered bibasilar asymmetric densities likely subsegmental atelectatic changes. No new abnormal patchy opacities have developed. Scattered subsegmental atelectatic changes are seen throughout the lung [place] oca. IMPRESSION: There is no evidence of acute disease. Findings as described above. CXR: The technique utilized in obtaining the radiograph has magnified the cardiac silhouette and accentuated the interstitial markings. There is global cardiomegaly accentuated by technique status quo. The interstitial markings have increased slightly compared to the prior exam no patchy opacities or pleural effusions have developed. There is no change in the osseous structures. IMPRESSION: Global cardiomegaly with mild interstitial edema suspected. ASSESSMENT: 65-year-old W with past medical history of hypertension, atrial fibrillation, GERD, history of pulmonary emboli and DVT on eliquis, who presented to [facility] emergency dept with worsening SOB and orthopnea for 3 days and admitted for HFpEF exacerbation. PLAN: HFpEF exacerbation: -Discontinue lasix 40 IV q8H. Start on lasix 40 PO QD -2L/24h fluid restriction, 2g sodium -daily weights -strict I/Os -daily BMP -holding HCTZ while on loop diuretic -f/u TTE Chronic atrial fibrillation, HR in low 100s: patient of Dr. Graham, on fleicanide, metop and digoxin at baseline -continue fleicanide, metop and digoxin -telemetry -daily BMP and mag HTN -C/w home metop, holding HCTZ, on lasix 40 IV Q8H Graves? -continue home methimazole -low TSH, f/u free T4 Hx of DVT, PE -continue home eliquis GERD -C/w famotidine HLD: -continue atorvastatin CAD: -continue ASA 81, statin DVT px -Eliquis VS,Fishbone, I+O VS, Fishbone, I+O Laboratory Tests 01/29/21 05:37 Vital Signs Date Time Temp Pulse Resp B/P (MAP) Pulse Ox O2 Delivery O2 Flow Rate FiO2 01/29/21 06:00 97.6 77 18 119/76 (90) 96 Room Air 01/28/21 14:00 I&O- Last 24 Hours up to 6 AM 01/29/21 06:00 Intake Total 1080 ml Output Total 1500 ml Balance -420 ml SIOBHAN RATLIFF MD Jan 29, 2021 08:06
--- NOTE | 2021-01-29 11:38 | DS.PDOC ---
Discharge Summary General Date of Admission Jan 27, 2021 at 17:50 Date of Discharge 01/29/2021 Attending Physician: SIOBHAN RATLIFF MD Discharge Summary PROCEDURES PERFORMED DURING STAY: None ADMITTING DIAGNOSES: CHF exacerbation DISCHARGE DIAGNOSES: HFpEF exacerbation Likely chronic COPD, current smoker HTN Chronic atrial fibrillation GERD Hx of VTEs on eliquis [facility] transient delirium Hypoxemia COMPLICATIONS/CHIEF COMPLAINT: CHF. HISTORY OF PRESENT ILLNESS: 65-year-old W with past medical history of hypertension, atrial fibrillation, GERD, history of pulmonary emboli and DVT on eliquis, current smoker, who presented to [facility] emergency dept with SOB and orthopnea for 3 days. Of note, she was in the ED the day prior and was discharged home and on the day of admission she is even more short of breath. She otherwise denied ailin chest pain, palpitations, recent fevers, chills, cough, congestion, asymmetric swelling, bleeding in urine, stool or emesis, dizziness or recent LOC. HOSPITAL COURSE: In the ER, VS showed she was hypertensive to 157/96, I suspect hypoxemic as she was placed on 2L NC, and afebrile. Workup revealed WBC 6, hgb 13, platelets 215, na 140, K 4.2, Cr 1.28, proBNP 8578, TSH 0.03, LFTs wnl, while CXR showed potential interstitial edema while CTA chest was negative for opacities, effusions or PEs. She was given 40mg of IV lasix admitted for CHF exacerbation. Of note, she had a TTE recently that showed EF of 70% and grade 1 diastolic dysfunction in 10/2020. She had IV lasix with resolution of her hypoxemia, and improvement in exertional dyspnea. Her course was c/b transient hospital associated delirium overnight that resolved. She cleared PT/OT and is now being discharged home on lasix 20mg PO daily and will follow up with PCP within 1w, and follow up with Dr. Jhaveri for her LLE wound in the next week as she does at baseline and is being discharged home with services for concern of med co mpliance. DISCHARGE MEDICATIONS: Please see below. ALLERGIES: Please see below. PHYSICAL EXAMINATION ON DISCHARGE: VITAL SIGNS: Please see below. CONSTITUTIONAL: No acute distress, resting comfortably, AAO x 3 EYES: PERRLA, EOM intact HENT, MOUTH: Normocephalic, atraumatic, moist mucous membranes NECK: SUPPLE, no JVD, no lymphadenopathy, no carotid bruit CV: Irregularly irregular rhythm, S1S2 normal, no murmurs/rubs/gallops RESPIRATORY: Clear to auscultation bilaterally, no rales/rhonchi/wheezes GI: obese abdomen, BS positive in 4 quadrants, soft, nontender, nondistended, no rebound or guarding, no organomegaly EXT:No cyanosis, clubbing, joint deformity, extremity edema INTEGUMENTARY: Chronic hyperpigmentation of bilateral lower ext, chronic. Intact, no rashes, no lesions, no erythema NEUROLOGIC: Cranial Nerves II-XII are intact, no focal deficits PSYCHIATRIC: Mood and affect are normal LABORATORY DATA: Please see below. IMAGING: CTA chest: There is excellent visualization of the pulmonary arterial vasculature. There are no focal filling defects present that would be considered consistent with acute pulmonary emboli. There are no pleural or pericardial effusions. There is no significant change in appearance of the imaged upper abdomen or imaged osseous structures. There is bilateral low-density adrenal gland thickening status quo. There is no mediastinal or hilar adenopathy, however, note is again made of bulky thyromegaly. There is a borderline right hilar lymph node with a short axis dimension of 1 cm. This cannot be compared to the latest prior exam since no intravenous contrast was administered for that exam. When compared to the next latest prior CT of the chest which was obtained after intravenous contrast this lymph node is unchanged. That examination is dated 02/22/2019. Evaluation of the lung montes de oca shows a few scattered bibasilar asymmetric densities likely subsegmental atelectatic changes. No new abnormal patchy opacities have developed. Scattered subsegmental atelectatic changes are seen throughout the lung montes de oca. IMPRESSION: There is no evidence of acute disease. Findings as described above. CXR: The technique utilized in obtaining the radiograph has magnified the cardiac silhouette and accentuated the interstitial markings. There is global cardiomegaly accentuated by technique status quo. The interstitial markings have increased slightly compared to the prior exam no patchy opacities or pleural effusions have developed. There is no change in the osseous structures. IMPRESSION: Global cardiomegaly with mild interstitial edema suspected. PROGNOSIS: good ACTIVITY: As tolerated DIET: 2g sodium DISCHARGE PLAN: Home with services, with lasix 20mg daily DISPOSITION: Home DISCHARGE INSTRUCTIONS: Home with services, with lasix 20mg daily ITEMS TO FOLLOWUP ON ON OUTPATIENT: HFpEF Wound care clinic follow up DISCHARGE CONDITION: Stable TIME SPENT ON DISCHARGE: 45 minutes. Vital Signs/I&Os Vital Signs Date Time Temp Pulse Resp B/P (MAP) Pulse Ox O2 Delivery O2 Flow Rate FiO2 01/29/21 08:07 93 112/60 01/29/21 06:00 97.6 18 96 Room Air 01/28/21 14:00 I&O- Last 24 Hours up to 6 AM 01/29/21 06:00 Intake Total 1080 ml Output Total 1500 ml Balance -420 ml Laboratory Data Labs 24H Laboratory Tests 2 01/29/21 05:37: Nucleated Red Blood Cells % (auto) 0.0, Anion Gap 5L, Glomerular Filtration Rate 44.4L, Calcium Level 10.8H, Magnesium Level 2.1, Total Creatine Kinase 47, Creatine Kinase MB < 1.0, Creatine Kinase MB Relative Index 2.13, Troponin I 0.02 01/29/21 08:30: Ammonia 26 CBC/BMP Laboratory Tests 01/29/21 05:37 Microbiology Microbiology 01/27/21 Respiratory Virus Panel (PCR) ([facility]) - Final, Complete Discharge Medications Scheduled Apixaban (Eliquis) 5 Mg Tablet, 5 MG PO BID, (Reported) Aspirin (Ecotrin) 81 Mg Tablet.dr, 81 MG PO DAILY, (Reported) Atorvastatin Calcium (Atorvastatin Calcium) 20 Mg Tablet, 20 MG PO QPM, (R eported) Bupropion Hcl (Bupropion Xl) 150 Mg Tab.er.24h, 1 TAB PO DAILY, (Reported) Digoxin (Digoxin) 250 Mcg Tablet, 250 MCG PO QPM, (Reported) Famotidine (Famotidine) 20 Mg Tablet, 20 MG PO BID, (Reported) Flecainide Acetate (Flecainide Acetate) 100 Mg Tablet, 100 MG PO BID, (Reported) Fluoxetine Hcl (Fluoxetine HCl) 20 Mg Capsule, 20 MG PO DAILY, (Reported) Furosemide (Furosemide) 20 Mg Tablet, 1 TAB PO DAILY Hydrochlorothiazide (Hydrochlorothiazide) 25 Mg Tablet, 25 MG PO DAILY, (Reported) Metoprolol Tartrate (Metoprolol Tartrate) 25 Mg Tablet, 25 MG PO BID, (Reported) Multivitamins (Thera M Plus Tablet) 1 Each Tablet, 1 TAB PO DAILY, (Reported) Vitamin E (Vitamin E) 400 Unit Capsule, 400 UNIT PO DAILY, (Reported) Scheduled PRN Acetaminophen (Tylenol Extra Strength) 500 Mg Tablet, 1,000 MG PO Q6H PRN for PAIN / FEVER, (Reported) Allergies Coded Allergies: ibuprofen (Verified Adverse Reaction, Mild, GI, 10/01/19) SIOBHAN RATLIFF MD Jan 29, 2021 11:38
[2021-01-29 14:00] VITALS: BP 128/66
--- NOTE | 2021-01-29 17:55 | MHCRPDOC ---
[facility] Consultation Consultation DATE OF CONSULTATION: 01/29/21 CONSULTATION REQUESTED BY: Belen Paredes MD REASON FOR CONSULTATION: Agitation. RELEVANT HISTORY: 65-year-old admitted for congestive heart failure. Ins admission she has been quite confused and agitated, at times being combative with the staff and wanting to leave. Per medical staff she seems clear and more logical towards beginning of admission, and has become increasingly more agitated and disturbed. Over the past days she has been requesting to leave the hospital several times and is beginning upset with the staff, she often talks about stranger nonsensical events, and is frequently tearful. Evaluation was requested in order to determine if there could be a psychiatric component to her current presentation or if there could be additional suggestions that might help the patient. PAST PSYCHIATRIC HISTORY: History of depression; denies a history of psychiatric admissions, denies history of suicide attempts or self injury PAST MEDICAL HISTORY: Congestive heart failure, atrial fibrillation, GERD FAMILY HISTORY: Unable to focus to provide answers for questions about family history PERSONAL AND SOCIAL HISTORY: The patient was born and raised in [place]. Resides in: [place] Marital Status: W / Children: Has adult children that do not live nearby and do not participate in current care Employment: Reports employment but was unable to state where SUBSTANCE ABUSE HISTORY: Smoking: Denies a history of smoking ETOH: Denies a history of alcohol consumption Illicit Drugs: Denies use of other drugs LEGAL HISTORY: Denies notable legal history. MENTAL STATUS EXAMINATION: Patient is a 65-year old female, who is dressed in hospital gown with a ill fitting jacket over the top. Speech is speech was spontaneous, clear, with regular rate, rhythm, and volume. Language skills are intact. Thought processes including: Tangential. Thought content: Focused on worry about whether or not her dog has been put down, believes that the staff at the hospital have told her that her dog was put down, it anger over not being allowed to return home. Abstract reasoning, and computation: Does not appear to have abstract reasoning, difficult time manipulating formation. Description of associations: Loose. Description of abnormal or psychotic thoughts: Denies AVH, did not appear paranoid. Did not appear to have delusions about her dog being put down and staff at the hospital being responsible for her. Judgment: Poor. Insight: Limited by current mental status. Orientation to time and self, when asked about location she stated that she was in a home (initially described as a place where they bring people and dogs to put them down). Recent and remote memory: 0 of 3 on short recall, remote memory appears to be intact based on her ability to tell a logical history prior to hospitalization. Attention span and concentration: Attention intact, able to perform serial sevens without issue, followed the conversation and interview without repetition of questions. Fund of knowledge: Appears intact, however executive functioning is impaired was asked to draw a clock with hands at 2:10, dayday our hand at 2:00 and minute hand at 10:00; asked to copy interlocking figures, dayday both figures together but separate, did not complete the connections on the figures. Mood: "I just want to go home". Affect: Tearful, labile, congruent with mood and thought content. DIAGNOSIS: 1. Delirium 2. Unspecified depressive disorder 3. Unspecified neurocognitive disorder, rule out dementia PLAN: 1. Given the patient's poor physical health, on review of her recent EKG she has a highly prolonged QTC the use of antipsychotics for management of her agitation is not advised. We recommend use of benzodiazepines at this time, have ordered 0.25 mg of Ativan to be given every 4 hours as needed with a max dose of 3 in a day. Would recommend continue to evaluate her, use of benzodiazepines in delirious patients may result in increased loss of inhibitions and increased agitation. If an antipsychotic as needed would recommend use of 0.5 mg of Haldol given p.o. or IM (do not give IV), with a maximum dose of 2 mg in a day, however this will require significant monitoring of her QTC as she is on multiple medications that may impact QTC along with metabolism of each other. Other alternatives for sedation would likely warrant transfer to an ICU for use of propofol or dexmedetomidine based upon what the primary team feels would be most helpful and safest given her current medical status.. 2. In order to help reduce incidence of delirium would recommend trying to address metabolic, infectious, pain, or other medical conditions which may be contributing to delirium. Would also recommend establishing a set schedule for the patient with reduction in noise and interaction to allow patient less of a confusing situation. Vital Signs Vital Signs Date Time Temp Pulse Resp B/P (MAP) Pulse Ox O2 Delivery O2 Flow Rate FiO2 01/29/21 14:00 98.0 60 18 128/66 (86) 98 Room Air 01/28/21 14:00 Laboratory Data 24H Labs Laboratory Tests 2 01/29/21 05:37: Nucleated Red Blood Cells % (auto) 0.0, Anion Gap 5L, Glomerular Filtration Rate 44.4L, Calcium Level 10.8H, Magnesium Level 2.1, Total Creatine Kinase 47, Creatine Kinase MB < 1.0, Creatine Kinase MB Relative Index 2.13, Troponin I 0.02 01/29/21 08:30: Ammonia 26 Home Medications Current Medications Current Medications Medications (Trade) Dose Ordered Sig/Soto Route PRN Reason Start Time Stop Time Status Last Admin Dose Admin Acetaminophen (Tylenol Tab) 650 mg Q4H PRN PO MILD PAIN or TEMP > 101 01/27/21 17:50 01/28/21 14:16 Apixaban (Eliquis) 5 mg BID PO 01/27/21 21:00 01/29/21 08:02 Aspirin (Aspirin Chewable) 81 mg DAILY PO 01/28/21 09:00 01/29/21 08:03 Atorvastatin Calcium (Lipitor) 20 mg DAILY@2100 PO 01/27/21 21:00 01/28/21 20:00 Bupropion HCl (Wellbutrin Xl) 150 mg DAILY PO 01/28/21 09:00 01/29/21 12:52 DC 01/29/21 08:03 Bupropion HCl (Wellbutrin Xl) 150 mg DAILY PO 01/30/21 09:00 Digoxin (Lanoxin) 0.25 mg QHS PO 01/27/21 21:00 01/28/21 20:00 Famotidine (Pepcid) 40 mg QHS PO 01/27/21 21:00 01/28/21 20:00 Flecainide Acetate (Tambocor) 100 mg BID PO 01/27/21 21:00 01/29/21 08:03 Fluoxetine HCl (PROzac) 20 mg DAILY PO 01/28/21 09:00 01/29/21 08:03 Furosemide (LASIX injection) 40 mg Q8H IV 01/28/21 00:00 01/29/21 07:58 DC 01/29/21 00:32 Furosemide (Lasix) 40 mg DAILY PO 01/29/21 09:00 10/28/21 10:10 Home Med (Home Med List Complete!) ASDIRECTED XX 01/27/21 19:10 01/27/21 19:10 DC Magnesium Hydroxide (Milk Of Magnesia) 30 ml DAILY PRN PO CONSTIPATION 01/27/21 17:50 Methimazole (Tapazole) 10 mg DAILY PO 01/28/21 09:00 01/29/21 08:03 Metoprolol Tartrate (Lopressor) 25 mg BID PO 01/27/21 21:00 01/29/21 08:07 Vitamin E (Vitamin E) 400 units DAILY PO 01/28/21 09:00 01/29/21 08:03 Scheduled Apixaban (Eliquis) 5 Mg Tablet, 5 MG PO BID, (Reported) Aspirin (Ecotrin) 81 Mg Tablet.dr, 81 MG PO DAILY, (Reported) Atorvastatin Calcium (Atorvastatin Calcium) 20 Mg Tablet, 20 MG PO QPM, (Reported) Bupropion Hcl (Bupropion Xl) 150 Mg Tab.er.24h, 1 TAB PO DAILY, (Reported) Digoxin (Digoxin) 250 Mcg Tablet, 250 MCG PO QPM, (Reported) Famotidine (Famotidine) 20 Mg Tablet, 20 MG PO BID, (Reported) Flecainide Acetate (Flecainide Acetate) 100 Mg Tablet, 100 MG PO BID, (Reported) Fluoxetine Hcl (Fluoxetine HCl) 20 Mg Capsule, 20 MG PO DAILY, (Reported) Furosemide (Furosemide) 20 Mg Tablet, 1 TAB PO DAILY Hydrochlorothiazide (Hydrochlorothiazide) 25 Mg Tablet, 25 MG PO DAILY, (Reported) Metoprolol Tartrate (Metoprolol Tartrate) 25 Mg Tablet, 25 MG PO BID, (Reported) Multivitamins (Thera M Plus Tablet) 1 Each Tablet, 1 TAB PO DAILY, (Reported) Vitamin E (Vitamin E) 400 Unit Capsule, 400 UNIT PO DAILY, (Reported) Scheduled PRN Acetaminophen (Tylenol Extra Strength) 500 Mg Tablet, 1,000 MG PO Q6H PRN for PAIN / FEVER, (Reported) Allergies Coded Allergies: ibuprofen (Verified Adverse Reaction, Mild, GI, 10/01/19) ARTURO WELDON MD Jan 29, 2021 17:55
[2021-01-29] MEDS ORDERED: PILL CUTTER 1 EACH XX PRN (18:00)
[2021-01-29] MEDS: LORazepam 0.5 MG TAB PO PRN ×2 (18:04→22:32)
[2021-01-29] MEDS ORDERED: OLANZapine INTRAMUSCULAR 10MG VIAL IM PRN (19:55)
[2021-01-29] MEDS: FAMOTIDINE 20 MG TAB PO SCH (20:21)
[2021-01-29] MEDS: ATORVASTATIN 20 MG TAB PO SCH (20:21)
[2021-01-29] MEDS: DIGOXIN 0.25 MG TAB PO SCH (20:23)
[2021-01-29 22:00] VITALS: BP 111/95
[2021-01-30] MEDS ORDERED: LORazepam 2 MG/ML VIAL IV PRN (03:25)
[2021-01-30 05:15] VITALS: BP 147/95
[2021-01-30 05:30] VITALS: BP 144/91
--- NOTE | 2021-01-30 05:50 | IPNPDOC ---
Text Note Date of Service The patient was seen on 01/30/21. NOTE Alerted by nursing staff at 0545 that patient had suffered a fall. Apparently, staff had just taken vitals on patient and returned to nursing station only for them to turn around and notice patient on the floor. Patient is unreliable historian at this point but it seems as though patient slipped trying to get our of bed. Patient had been aggressive, restless, agitated, difficult to redirect and noncompliant with staff instruction throughout the night. Staff tell me patient was found laying on her left side in no acute distress. I saw and examined patient at this time who voices no complaints to me. Physical exam performed at this time unremarkable. Vital signs after fall stable. VS,Fishbone, I+O VS, Fishbone, I+O Vital Signs Date Time Temp Pulse Resp B/P (MAP) Pulse Ox O2 Delivery O2 Flow Rate FiO2 01/29/21 22:00 98.6 63 18 111/95 (100) 99 Room Air 01/28/21 14:00 I&O- Last 24 Hours up to 6 AM 01/30/21 06:00 Intake Total 625 ml Balance 625 ml MIGUEL JACQUES Jan 30, 2021 05:50
[2021-01-30 06:35] LABS: HEMATOCRIT 42.6 % (36.0-47.0); MEAN CORPUSCULAR HEMOGLOBIN 31.8 pg (27.0-33.0); MEAN CORPUSCULAR HGB CONC 32.9 g/dl (32.0-36.5); MEAN CORPUSCULAR VOLUME 96.8 fl (80.0-96.0); PLATELET COUNT, AUTOMATED 221 10^3/uL (150-450); WHITE BLOOD COUNT 7.4 10^3/uL (4.0-10.0)
[2021-01-30 07:04] LABS: CALCIUM LEVEL 11.2 MG/DL (8.8-10.2); CREATININE FOR GFR 2.78 MG/DL (0.55-1.30); GLOMERULAR FILTRATION RATE 18.1 (>45); MAGNESIUM LEVEL 2.1 MG/DL (1.8-2.4); POTASSIUM SERUM 4.3 MEQ/L (3.5-5.1)
[2021-01-30] MEDS: ASPIRIN 81 MG CHEW TABLET PO SCH (09:10)
[2021-01-30] MEDS: FUROSEMIDE 40 MG TAB PO SCH (09:10)
[2021-01-30] MEDS: FLECAINIDE 50MG TABLET PO SCH ×2 (09:10→20:38)
[2021-01-30] MEDS: VITAMIN E 400 INTERNATIONAL UNITS CAP PO SCH (09:10)
[2021-01-30] MEDS: FLUoxetine 20 MG CAP PO SCH (09:11)
[2021-01-30] MEDS: METOPROLOL TART 25 MG TABLET PO SCH ×2 (09:11→20:40)
[2021-01-30] MEDS: buPROPion **XL** TABLET 150MG (WELLBUTRIN XL) PO SCH (09:11)
[2021-01-30] MEDS: APIXABAN 5 MG TAB (ELIQUIS) PO SCH ×2 (09:11→20:38)
[2021-01-30] MEDS ORDERED: HALOPERIDOL 5MG/ML VIAL (J1630 PER 1) IM PRN (10:25)
[2021-01-30] MEDS: LORazepam 0.5 MG TAB PO PRN ×2 (13:27→20:38)
[2021-01-30 14:24] VITALS: BP 119/82
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
[2021-01-30] MEDS: FAMOTIDINE 20 MG TAB PO SCH (20:38)
[2021-01-30] MEDS: ATORVASTATIN 20 MG TAB PO SCH (20:38)
[2021-01-30] MEDS: DIGOXIN 0.25 MG TAB PO SCH (20:40)
[2021-01-31 06:00] VITALS: BP 122/61
[2021-01-31 07:27] LABS: HEMATOCRIT 38.4 % (36.0-47.0); HEMOGLOBIN 12.4 g/dl (12.0-15.5); MEAN CORPUSCULAR HEMOGLOBIN 31.7 pg (27.0-33.0); MEAN CORPUSCULAR HGB CONC 32.3 g/dl (32.0-36.5); MEAN CORPUSCULAR VOLUME 98.2 fl (80.0-96.0); PLATELET COUNT, AUTOMATED 176 10^3/uL (150-450); RED BLOOD COUNT 3.91 10^6/uL (4.00-5.40); WHITE BLOOD COUNT 5.4 10^3/uL (4.0-10.0)
[2021-01-31 07:29] LABS: CALCIUM LEVEL 10.1 MG/DL (8.8-10.2); CREATININE FOR GFR 1.36 MG/DL (0.55-1.30); GLOMERULAR FILTRATION RATE 41.4 (>45); MAGNESIUM LEVEL 2.2 MG/DL (1.8-2.4); POTASSIUM SERUM 4.2 MEQ/L (3.5-5.1)
[2021-01-31] MEDS: FLECAINIDE 50MG TABLET PO SCH ×2 (08:27→20:59)
[2021-01-31] MEDS: ASPIRIN 81 MG CHEW TABLET PO SCH (08:27)
[2021-01-31] MEDS: buPROPion **XL** TABLET 150MG (WELLBUTRIN XL) PO SCH (08:27)
[2021-01-31] MEDS: METOPROLOL TART 25 MG TABLET PO SCH ×2 (08:29→21:00)
[2021-01-31] MEDS: FLUoxetine 20 MG CAP PO SCH (08:29)
[2021-01-31] MEDS: VITAMIN E 400 INTERNATIONAL UNITS CAP PO SCH (08:29)
[2021-01-31] MEDS: APIXABAN 5 MG TAB (ELIQUIS) PO SCH ×2 (08:29→20:59)
--- NOTE | 2021-01-31 12:54 | IPNPDOC ---
Text Note Date of Service The patient was seen on 01/31/21. NOTE SUBJECTIVE: -Continues to have confusion, and at this time is pleasant -Oriented to self, digresses when we are having a conversation with subject that is not part of the conversation, otherwise knows self, , her history but not OBJECTIVE: VITAL SIGNS: Please see below CONSTITUTIONAL: No acute distress, resting comfortably, AAO x 3 EYES: PERRLA, EOM intact HENT, MOUTH: Normocephalic, atraumatic, moist mucous membranes NECK: SUPPLE, no JVD, no lymphadenopathy, no carotid bruit CV: Irregularly irregular rhythm, S1S2 normal, no murmurs/rubs/gallops RESPIRATORY: Clear to auscultation bilaterally, no rales/rhonchi/wheezes GI: obese abdomen, BS positive in 4 quadrants, soft, nontender, nondistended, no rebound or guarding, no organomegaly EXT:No cyanosis, clubbing, joint deformity, extremity edema INTEGUMENTARY: Chronic hyperpigmentation of bilateral lower ext, chronic. Intact, no rashes, no lesions, no erythema NEUROLOGIC: Cranial Nerves II-XII are intact, no focal deficits PSYCHIATRIC: Mood and affect are normal , AOx1 LABORATORY DATA: reviewed Cr 1.34 IMAGING: CTA chest: There is excellent visualization of the pulmonary arterial vasculature. There are no focal filling defects present that would be considered consistent with acute pulmonary emboli. There are no pleural or pericardial effusions. There is no significant change in appearance of the imaged upper abdomen or imaged osseous structures. There is bilateral low-density adrenal gland thickening status quo. There is no mediastinal or hilar adenopathy, however, note is again made of bulky thyromegaly. There is a borderline right hilar lymph node with a short axis dimension of 1 cm. This cannot be compared to the latest prior exam since no intravenous contrast was administered for that exam. When compared to the next latest prior CT of the chest which was obtained after intravenous contrast this lymph node is unchanged. That examination is dated 02/22/2019. Evaluation of the lung mont[place] oca shows a few scattered bibasilar asymmetric densities likely subsegmental atelectatic changes. No new abnormal patchy opacities have developed. Scattered subsegmental atelectatic changes are seen throughout the lung mont[place] oca. IMPRESSION: There is no evidence of acute disease. Findings as described above. CXR: The technique utilized in obtaining the radiograph has magnified the cardiac silhouette and accentuated the interstitial markings. There is global cardiomegaly accentuated by technique status quo. The interstitial markings have increased slightly compared to the prior exam no patchy opacities or pleural effusions have developed. There is no change in the osseous structures. IMPRESSION: Global cardiomegaly with mild interstitial edema suspected. ASSESSMENT: 65-year-old W with past medical history of hypertension, atrial fibrillation, GERD, history of pulmonary emboli and DVT on eliquis, who presented to [facility] emergency dept with worsening SOB and orthopnea for 3 days and admitted for HFpEF exacerbation with course now c/b delirium and WAYLON. PLAN: WAYLON: -recently diuresed and tolerated well, but now confused, stopped diuretics, improving -continue holing loop diuretic and HCTZ Delirium: -Has a hx of depression, will continue her prozac and wellbutrin -consulted psych, PRN ativan ordered, to avoid antipsychotics given prolonged QTc on fleicanide, BB and dig. However per psych if absolutely required to give IM NOT IV haldol as ordered -nonfocal for infection concern, UA bland and BCx NGTD. chest imaging was without evidence of infection. HFpEF exacerbation: -Discontinued lasix, euvolemic -daily weights -strict I/Os -daily BMP -holding HCTZ -f/u TTE read Chronic atrial fibrillation, HR in low 100s: patient of Dr. Graham, on fleicanid e, metop and digoxin at baseline -continue fleicanide, metop and digoxin -telemetry -daily BMP and mag HTN -C/w home metop, holding HCTZ Graves? -continue home methimazole -low TSH, f/u free T4 Hx of DVT, PE -continue home eliquis GERD -C/w famotidine HLD: -continue atorvastatin CAD: -continue ASA 81, statin DVT px -Eliquis VS,Fishbone, I+O VS, Fishbone, I+O Laboratory Tests 01/31/21 05:39 Vital Signs Date Time Temp Pulse Resp B/P (MAP) Pulse Ox O2 Delivery O2 Flow Rate FiO2 01/31/21 08:29 102 138/85 01/31/21 06:00 98.1 17 93 Room Air 01/28/21 14:00 I&O- Last 24 Hours up to 6 AM 01/31/21 06:00 Intake Total 1200 ml Output Total 0 ml Balance 1200 ml SIOBHAN RATLIFF MD Jan 31, 2021 10:25
[2021-01-31 14:00] VITALS: BP 114/76
[2021-01-31] MEDS: LORazepam 0.5 MG TAB PO PRN (14:07)
[2021-01-31] MEDS: FAMOTIDINE 20 MG TAB PO SCH (20:58)
[2021-01-31] MEDS: DIGOXIN 0.25 MG TAB PO SCH (20:59)
[2021-01-31] MEDS: ATORVASTATIN 20 MG TAB PO SCH (21:00)
[2021-02-01 06:00] VITALS: BP 126/73
[2021-02-01 07:05] LABS: HEMATOCRIT 38.9 % (36.0-47.0); HEMOGLOBIN 12.5 g/dl (12.0-15.5); MEAN CORPUSCULAR HEMOGLOBIN 32.1 pg (27.0-33.0); MEAN CORPUSCULAR HGB CONC 32.1 g/dl (32.0-36.5); MEAN CORPUSCULAR VOLUME 99.7 fl (80.0-96.0); PLATELET COUNT, AUTOMATED 182 10^3/uL (150-450); WHITE BLOOD COUNT 5.4 10^3/uL (4.0-10.0)
[2021-02-01 07:14] LABS: CALCIUM LEVEL 10.6 MG/DL (8.8-10.2); CREATININE FOR GFR 1.02 MG/DL (0.55-1.30); GLOMERULAR FILTRATION RATE 57.7 (>45); MAGNESIUM LEVEL 2.4 MG/DL (1.8-2.4); POTASSIUM SERUM 4.4 MEQ/L (3.5-5.1)
--- NOTE | 2021-02-01 08:24 | IPNPDOC ---
Text Note Date of Service The patient was seen on 02/01/21. NOTE SUBJECTIVE: -Continues to have confusion, pleasant, thought the overnight nurse allowed to keep her dog overnight and was grateful. OBJECTIVE: VITAL SIGNS: Please see below CONSTITUTIONAL: No acute distress, resting comfortably, AAO x 3 EYES: PERRLA, EOM intact HENT, MOUTH: Normocephalic, atraumatic, moist mucous membranes NECK: SUPPLE, no JVD, no lymphadenopathy, no carotid bruit CV: Irregularly irregular rhythm, S1S2 normal, no murmurs/rubs/gallops RESPIRATORY: Clear to auscultation bilaterally, no rales/rhonchi/wheezes GI: obese abdomen, BS positive in 4 quadrants, soft, nontender, nondistended, no rebound or guarding, no organomegaly EXT:No cyanosis, clubbing, joint deformity, extremity edema INTEGUMENTARY: Chronic hyperpigmentation of bilateral lower ext, chronic. Intact, no rashes, no lesions, no erythema NEUROLOGIC: Cranial Nerves II-XII are intact, no focal deficits PSYCHIATRIC: Mood and affect are normal , AOx1 LABORATORY DATA: reviewed Cr 1.02 IMAGING: CTA chest: There is excellent visualization of the pulmonary arterial vasculature. There are no focal filling defects present that would be considered consistent with acute pulmonary emboli. There are no pleural or pericardial effusions. There is no significant change in appearance of the imaged upper abdomen or imaged osseous structures. There is bilateral low-density adrenal gland thickening status quo. There is no mediastinal or hilar adenopathy, however, note is again made of bulky thyromegaly. There is a borderline right hilar lymph node with a short axis dimension of 1 cm. This cannot be compared to the latest prior exam since no intravenous contrast was administered for that exam. When compared to the next latest prior CT of the chest which was obtained after intravenous contrast this lymph node is unchanged. That examination is dated 02/22/2019. Evaluation of the lung [place] oca shows a few scattered bibasilar asymmetric densities likely subsegmental atelectatic changes. No new abnormal patchy opacities have developed. Scattered subsegmental atelectatic changes are seen throughout the lung mont[place] de oca. IMPRESSION: There is no evidence of acute disease. Findings as described above. CXR: The technique utilized in obtaining the radiograph has magnified the cardiac silhouette and accentuated the interstitial markings. There is global cardiomegaly accentuated by technique status quo. The interstitial markings have increased slightly compared to the prior exam no patchy opacities or pleural effusions have developed. There is no change in the osseous structures. IMPRESSION: Global cardiomegaly with mild interstitial edema suspected. ASSESSMENT: 65-year-old W with past medical history of hypertension, atrial fibrillation, GERD, history of pulmonary emboli and DVT on eliquis, who presented to [facility] emergency dept with worsening SOB and orthopnea for 3 days and admitted for HFpEF exacerbation with course now c/b delirium and WAYLON. PLAN: WAYLON: -recently diuresed and tolerated well, but now confused, stopped diuretics, improving -continue holing loop diuretic and HCTZ Delirium on potential dementia?: -Has a hx of depression, will continue her prozac and wellbutrin -consulted psych, PRN ativan ordered, to avoid antipsychotics given prolonged QTc on fleicanide, BB and dig. However per psych if absolutely required to give IM NOT IV haldol as ordered -nonfocal for infection concern, UA bland and BCx NGTD. chest imaging was without evidence of infection. -Will get CT head to r/o intracranial pathology though I highly doubt with an o therwise nonfocal neuro exam HFpEF exacerbation: -Discontinued lasix, euvolemic -daily weights -strict I/Os -daily BMP -holding HCTZ -f/u TTE read Chronic atrial fibrillation, HR in low 100s: patient of Dr. Graham, on fleicanide, metop and digoxin at baseline -continue fleicanide, metop and digoxin -telemetry -daily BMP and mag HTN -C/w home metop, holding HCTZ Graves? -continue home methimazole -low TSH, f/u free T4 Hx of DVT, PE -continue home eliquis GERD -C/w famotidine HLD: -continue atorvastatin CAD: -continue ASA 81, statin DVT px -Eliquis VS,Fishbone, I+O VS, Fishbone, I+O Laboratory Tests 02/01/21 05:47 Vital Signs Date Time Temp Pulse Resp B/P (MAP) Pulse Ox O2 Delivery O2 Flow Rate FiO2 02/01/21 06:00 98.3 60 18 126/73 (90) 95 Room Air 01/28/21 14:00 I&O- Last 24 Hours up to 6 AM0 02/01/21 06:00 Intake Total 700 ml Output Total 725 ml Balance -25 ml SIOBHAN RATLIFF MD Feb 01, 2021 08:24
[2021-02-01] MEDS: APIXABAN 5 MG TAB (ELIQUIS) PO SCH ×2 (08:27→21:41)
[2021-02-01] MEDS: FLUoxetine 20 MG CAP PO SCH (08:27)
[2021-02-01] MEDS: FLECAINIDE 50MG TABLET PO SCH ×2 (08:27→21:42)
[2021-02-01] MEDS: ASPIRIN 81 MG CHEW TABLET PO SCH (08:27)
[2021-02-01] MEDS: buPROPion **XL** TABLET 150MG (WELLBUTRIN XL) PO SCH (08:27)
[2021-02-01] MEDS: VITAMIN E 400 INTERNATIONAL UNITS CAP PO SCH (08:27)
[2021-02-01] MEDS: METOPROLOL TART 25 MG TABLET PO SCH ×2 (08:29→21:41)
--- NOTE | 2021-02-01 09:10 | REP ---
INDICATION: AMS. COMPARISON: None. TECHNIQUE: 5 mm contiguous transaxial sections were obtained from the skull base to the cerebral convexities. FINDINGS: The ventricles and sulci are consistent with the patient's age. There are no extra-axial fluid collections. There is no mass effect. The deep cerebral white matter is consistent with the patient's age. The orbital and petrous structures, cerebellopontine angles, and posterior fossa are unremarkable. The sella turcica, cavernous, and paracavernous structures are essentially unremarkable. The visualized portions of the paranasal sinuses and mastoid air cells are clear. Images of the skull base show no gross abnormality. IMPRESSION: Essentially unremarkable CT examination of the brain. <Electronically signed by Pawel Sanchez > 02/01/21 0932
[2021-02-01 14:00] VITALS: BP 133/73
[2021-02-01] MEDS: FAMOTIDINE 20 MG TAB PO SCH (21:40)
[2021-02-01] MEDS: ATORVASTATIN 20 MG TAB PO SCH (21:42)
[2021-02-01] MEDS: DIGOXIN 0.25 MG TAB PO SCH (21:57)
[2021-02-01 22:00] VITALS: BP 127/78
[2021-02-02 06:35] VITALS: BP 150/78
[2021-02-02] MEDS: FLECAINIDE 50MG TABLET PO SCH ×2 (09:54→20:29)
[2021-02-02] MEDS: VITAMIN E 400 INTERNATIONAL UNITS CAP PO SCH (09:54)
[2021-02-02] MEDS: ASPIRIN 81 MG CHEW TABLET PO SCH (09:54)
[2021-02-02] MEDS: APIXABAN 5 MG TAB (ELIQUIS) PO SCH ×2 (09:54→20:27)
[2021-02-02] MEDS: buPROPion **XL** TABLET 150MG (WELLBUTRIN XL) PO SCH (09:54)
[2021-02-02] MEDS: FLUoxetine 20 MG CAP PO SCH (09:54)
[2021-02-02] MEDS: METOPROLOL TART 25 MG TABLET PO SCH ×2 (09:54→20:29)
--- NOTE | 2021-02-02 13:51 | IPNPDOC ---
Text Note Date of Service The patient was seen on 02/02/21. NOTE SUBJECTIVE: -Continues to have confusion, pleasant OBJECTIVE: VITAL SIGNS: Please see below CONSTITUTIONAL: No acute distress, resting comfortably, AAO x 3 EYES: PERRLA, EOM intact HENT, MOUTH: Normocephalic, atraumatic, moist mucous membranes NECK: SUPPLE, no JVD, no lymphadenopathy, no carotid bruit CV: Irregularly irregular rhythm, S1S2 normal, no murmurs/rubs/gallops RESPIRATORY: Clear to auscultation bilaterally, no rales/rhonchi/wheezes GI: obese abdomen, BS positive in 4 quadrants, soft, nontender, nondistended, no rebound or guarding, no organomegaly EXT:No cyanosis, clubbing, joint deformity, extremity edema INTEGUMENTARY: Chronic hyperpigmentation of bilateral lower ext, chronic. Intact, no rashes, no lesions, no erythema NEUROLOGIC: Cranial Nerves II-XII are intact, no focal deficits PSYCHIATRIC: Mood and affect are normal , AOx1 to self LABORATORY DATA: reviewed Cr 1.02 IMAGING: CTA chest: There is excellent visualization of the pulmonary arterial vasculature. There are no focal filling defects present that would be considered consistent with acute pulmonary emboli. There are no pleural or pericardial effusions. There is no significant change in appearance of the imaged upper abdomen or imaged osseous structures. There is bilateral low-density adrenal gland thickening status quo. There is no mediastinal or hilar adenopathy, however, note is again made of bulky thyromegaly. There is a borderline right hilar lymph node with a short axis dimension of 1 cm. This cannot be compared to the latest prior exam since no intravenous contrast was administered for that exam. When compared to the next latest prior CT of the chest which was obtained after intravenous contrast this lymph node is unchanged. That examination is dated 02/22/2019. Evaluation of the lung montes de oca shows a few scattered bibasilar asymmetric densities likely subsegmental atelectatic changes. No new abnormal patchy opacities have developed. Scattered subsegmental atelectatic changes are seen throughout the lung montes de oca. IMPRESSION: There is no evidence of acute disease. Findings as described above. CXR: The technique utilized in obtaining the radiograph has magnified the cardiac silhouette and accentuated the interstitial markings. There is global cardiomegaly accentuated by technique status quo. The interstitial markings have increased slightly compared to the prior exam no patchy opacities or pleural effusions have developed. There is no change in the osseous structures. IMPRESSION: Global cardiomegaly with mild interstitial edema suspected. ASSESSMENT: 65-year-old W with past medical history of hypertension, atrial fibrillation, GERD, history of pulmonary emboli and DVT on eliquis, who presented to [facility] emergency dept with worsening SOB and orthopnea for 3 days and admitted for HFpEF exacerbation with course now c/b delirium and WAYLON. PLAN: WAYLON: -recently diuresed and tolerated well, but now confused, stopped diuretics, improving -continue holing loop diuretic and HCTZ Delirium on potential dementia?: -Has a hx of depression, will continue her prozac and wellbutrin -consulted psych, PRN ativan ordered, to avoid antipsychotics given prolonged QTc on fleicanide, BB and dig. However per psych if absolutely required to give IM NOT IV haldol as ordered -nonfocal for infection concern, UA bland and BCx NGTD. chest imaging was without evidence of infection. -CT head negative for acute pathology HFpEF exacerbation: -Discontinued lasix, euvolemic -daily weights -strict I/Os -daily BMP -holding HCTZ -f/u TTE read Chronic atrial fibrillation, HR in low 100s: patient of Dr. Graham, on fleicanide, metop and digoxin at baseline -continue fleicanide, metop and digoxin -telemetry -daily BMP and mag HTN -C/w home metop, holding HCTZ Graves? -continue home methimazole Hx of DVT, PE -continue home eliquis GERD -C/w famotidine HLD: -continue atorvastatin CAD: -continue ASA 81, statin DVT px -Eliquis VS,Fishbone, I+O VS, Fishbone, I+O Vital Signs Date Time Temp Pulse Resp B/P (MAP) Pulse Ox O2 Delivery O2 Flow Rate FiO2 02/02/21 09:54 79 138/74 02/02/21 06:35 98.6 18 96 Room Air 01/28/21 14:00 I&O- Last 24 Hours up to 6 AM 02/02/21 06:00 Intake Total 340 ml Balance 340 ml SIOBHAN RATLIFF MD Feb 02, 2021 10:33
[2021-02-02 14:00] VITALS: BP 140/80
[2021-02-02] MEDS: DIGOXIN 0.25 MG TAB PO SCH (20:28)
[2021-02-02] MEDS: ATORVASTATIN 20 MG TAB PO SCH (20:28)
[2021-02-02] MEDS: FAMOTIDINE 20 MG TAB PO SCH (20:29)
[2021-02-02] MEDS: ACETAMINOPHEN TAB 650MG DOSE (2X325MG) PO PRN (20:29)
[2021-02-03] MEDS ORDERED: NYSTATIN 100,000 UNITS/GM TOPICAL PWD 15 GM TOP PRN (01:55)
[2021-02-03] MEDS: ACETAMINOPHEN TAB 650MG DOSE (2X325MG) PO PRN (05:06)
[2021-02-03] MEDS: LORazepam 0.5 MG TAB PO PRN (05:06)
[2021-02-03 06:00] VITALS: BP 146/67
[2021-02-03 07:34] LABS: HEMATOCRIT 39.2 % (36.0-47.0); HEMOGLOBIN 12.2 g/dl (12.0-15.5); MEAN CORPUSCULAR HEMOGLOBIN 31.4 pg (27.0-33.0); MEAN CORPUSCULAR HGB CONC 31.1 g/dl (32.0-36.5); MEAN CORPUSCULAR VOLUME 100.8 fl (80.0-96.0); PLATELET COUNT, AUTOMATED 180 10^3/uL (150-450); RED BLOOD COUNT 3.89 10^6/uL (4.00-5.40); WHITE BLOOD COUNT 5.7 10^3/uL (4.0-10.0)
[2021-02-03 07:46] LABS: BLOOD UREA NITROGEN 26 MG/DL (7-18); CALCIUM LEVEL 10.7 MG/DL (8.8-10.2); CARBON DIOXIDE LEVEL 28 MEQ/L (21-32); CHLORIDE LEVEL 107 MEQ/L (98-107); CREATININE FOR GFR 0.93 MG/DL (0.55-1.30); GLOMERULAR FILTRATION RATE > 60.0 (>45); GLUCOSE, FASTING 101 MG/DL (70-100); POTASSIUM SERUM 4.4 MEQ/L (3.5-5.1); SODIUM LEVEL 140 MEQ/L (136-145)
[2021-02-03] MEDS: METOPROLOL TART 25 MG TABLET PO SCH (08:37)
[2021-02-03] MEDS: FLUoxetine 20 MG CAP PO SCH (08:37)
[2021-02-03] MEDS: ASPIRIN 81 MG CHEW TABLET PO SCH (08:38)
[2021-02-03] MEDS: APIXABAN 5 MG TAB (ELIQUIS) PO SCH (08:38)
[2021-02-03] MEDS: FLECAINIDE 50MG TABLET PO SCH (08:38)
[2021-02-03] MEDS: buPROPion **XL** TABLET 150MG (WELLBUTRIN XL) PO SCH (08:38)
[2021-02-03] MEDS: VITAMIN E 400 INTERNATIONAL UNITS CAP PO SCH (08:38)
[2021-02-04] MEDS: ATORVASTATIN 20 MG TAB PO SCH ×2 (02:17→20:55)
[2021-02-04] MEDS: APIXABAN 5 MG TAB (ELIQUIS) PO SCH ×3 (02:17→20:54)
[2021-02-04] MEDS: FLECAINIDE 50MG TABLET PO SCH ×3 (02:17→20:54)
[2021-02-04] MEDS: FAMOTIDINE 20 MG TAB PO SCH ×2 (02:17→20:55)
[2021-02-04] MEDS: METOPROLOL TART 25 MG TABLET PO SCH ×3 (02:18→20:55)
[2021-02-04] MEDS: ACETAMINOPHEN TAB 650MG DOSE (2X325MG) PO PRN ×3 (02:18→20:55)
[2021-02-04] MEDS: DIGOXIN 0.25 MG TAB PO SCH ×2 (02:21→20:54)
[2021-02-04 06:00] VITALS: BP 143/80
[2021-02-04 06:37] LABS: HEMATOCRIT 38.8 % (36.0-47.0); HEMOGLOBIN 12.2 g/dl (12.0-15.5); MEAN CORPUSCULAR HEMOGLOBIN 31.4 pg (27.0-33.0); MEAN CORPUSCULAR HGB CONC 31.4 g/dl (32.0-36.5); PLATELET COUNT, AUTOMATED 174 10^3/uL (150-450); RED BLOOD COUNT 3.88 10^6/uL (4.00-5.40); WHITE BLOOD COUNT 6.3 10^3/uL (4.0-10.0)
[2021-02-04 07:00] LABS: CALCIUM LEVEL 11.1 MG/DL (8.8-10.2); CREATININE FOR GFR 1.02 MG/DL (0.55-1.30); GLOMERULAR FILTRATION RATE 57.7 (>45)
[2021-02-04] MEDS: FLUoxetine 20 MG CAP PO SCH (10:09)
[2021-02-04] MEDS: buPROPion **XL** TABLET 150MG (WELLBUTRIN XL) PO SCH (10:10)
[2021-02-04] MEDS: ASPIRIN 81 MG CHEW TABLET PO SCH (10:10)
[2021-02-04] MEDS: VITAMIN E 400 INTERNATIONAL UNITS CAP PO SCH (10:11)
[2021-02-05 06:00] VITALS: BP 143/72
[2021-02-05 06:47] LABS: HEMATOCRIT 38.3 % (36.0-47.0); HEMOGLOBIN 12.2 g/dl (12.0-15.5); MEAN CORPUSCULAR HEMOGLOBIN 31.4 pg (27.0-33.0); MEAN CORPUSCULAR HGB CONC 31.9 g/dl (32.0-36.5); MEAN CORPUSCULAR VOLUME 98.7 fl (80.0-96.0); PLATELET COUNT, AUTOMATED 181 10^3/uL (150-450); RED BLOOD COUNT 3.88 10^6/uL (4.00-5.40); WHITE BLOOD COUNT 4.8 10^3/uL (4.0-10.0)
[2021-02-05 07:08] LABS: BLOOD UREA NITROGEN 23 MG/DL (7-18); CARBON DIOXIDE LEVEL 25 MEQ/L (21-32); CHLORIDE LEVEL 107 MEQ/L (98-107); CREATININE FOR GFR 0.88 MG/DL (0.55-1.30); GLOMERULAR FILTRATION RATE > 60.0 (>45); GLUCOSE, FASTING 91 MG/DL (70-100); POTASSIUM SERUM 4.7 MEQ/L (3.5-5.1); SODIUM LEVEL 140 MEQ/L (136-145)
[2021-02-05] MEDS: FLUoxetine 20 MG CAP PO SCH (08:00)
[2021-02-05] MEDS: APIXABAN 5 MG TAB (ELIQUIS) PO SCH (08:00)
[2021-02-05] MEDS: VITAMIN E 400 INTERNATIONAL UNITS CAP PO SCH (08:00)
[2021-02-05] MEDS: FLECAINIDE 50MG TABLET PO SCH (08:00)
[2021-02-05] MEDS: buPROPion **XL** TABLET 150MG (WELLBUTRIN XL) PO SCH (08:00)
[2021-02-05 08:01] VITALS: BP 140/75
[2021-02-05] MEDS: ASPIRIN 81 MG CHEW TABLET PO SCH (08:01)
[2021-02-05] MEDS: METOPROLOL TART 25 MG TABLET PO SCH (08:01)
[2021-02-05] MEDS: ACETAMINOPHEN TAB 650MG DOSE (2X325MG) PO PRN (08:03)
--- NOTE | 2021-02-05 13:09 | DSES ---
DISCHARGE SUMMARY DATE OF ADMISSION: 01/27/2021 DATE OF DISCHARGE: 02/05/2021 PRIMARY DISCHARGE DIAGNOSES: 1. Acute congestive heart failure exacerbation with preserved systolic function. 2. Acute delirium. 3. Acute kidney injury. 4. Chronic atrial fibrillation. 5. Hypertension. 6. Grave's disease. 7. History of deep venous thrombosis (DVT) and pulmonary embolism (PE). 8. Gastroesophageal reflux disease (GERD). 9. Hyperlipidemia. 10. Coronary artery disease. DISCHARGE MEDICATIONS: - Lasix 20 mg daily - Tylenol 1 gram every 6 hours as needed - Eliquis 5 mg twice a day - aspirin 81 mg daily - atorvastatin 20 mg in the evening - bupropion 150 mg daily - digoxin 250 mcg daily - famotidine 20 mg twice a day - flecainide 100 mg twice a day - fluoxetine 20 mg daily - metoprolol 25 mg twice a day - multivitamin one tablet daily - vitamin D 400 units daily DISCHARGE INSTRUCTIONS: Immediate followup with cardiology within five days of discharge for congestive heart failure (CHF) management. HOSPITAL COURSE: This is a 65-year-old female admitted on 01/27/2021 with complaints of shortness of breath without chest pain, palpitations, fever, chills or cough. Workup included brain natriuretic peptide (BNP) of 7588. Chest x-ray showed pulmonary edema. Patient was given intravenous Lasix. Echocardiogram showed ejection fraction (EF) of 70% with grade 1 diastolic dysfunction. Patient's admission weight was 96.4 kilos. Discharge weight of 95.3 kg. She was given intravenous Lasix with net negative balance with no signs of orthostasis. Patient developed acute kidney injury due to overdiuresis with creatinine increasing to 2.78 on 01/29/2021. Lasix had been discontinued since, with improvement of creatinine to 0.88. On the day of discharge, she appeared to be euvolemic. Mentation improved with treatment for congestive heart failure. She was evaluated by a psychiatrist due to severe agitation and acute delirium, rule out dementia. Haldol as needed intramuscular (IM) 0.5 mg by mouth with maximum dose of 2 mg in a day. QTC was monitored, as well reorientation and reduction in noise and interactions to allow for patient being in a less confused state. Patient was seen by physical therapy (PT)/occupational therapy (OT). She was cooperative and subsequently discharged in stable condition. PHYSICAL EXAMINATION ON DISCHARGE: VITAL SIGNS: Temperature 98.3, pulse 60, respiratory rate 18, blood pressure 140/75,k 96% on room air. GENERAL: Patient is awake, alert, oriented, comfortable, no distress. LUNGS: Diminished, but clear to auscultation. No wheezing or rales. HEART: S1, S2. Irregularly irregular. No murmurs, rubs or gallops. ABDOMEN: Obese. Soft, nontender, nondistended. Positive bowel sounds. EXTREMITIES: No cyanosis, clubbing or pitting edema. DISCHARGE LABORATORY DATA/IMAGING STUDIES/MICROBIOLOGY: Please see the chart. TIME SPENT ON DISCHARGE: 30 minutes. MTDD
== END 2021-02-05 12:02 | disposition home health service (06) | DRG 291 ==
LOC: M ED 14:26 → EDBD 14:26 → M ED INP 17:50 → M MSPAV 20:26
PROVIDERS: ADMIT Internal Medicine; ATTEND General Practice
DX: I11.0 Hypertensive heart disease with heart failure (principal); I50.33 Acute on chronic diastolic (congestive) heart failure; N17.9 Acute kidney failure, unspecified; I48.20 Chronic atrial fibrillation, unspecified; Z79.01 Long term (current) use of anticoagulants; Z79.82 Long term (current) use of aspirin; Z79.899 Other long term (current) drug therapy; Z88.6 Allergy status to analgesic agent; E78.5 Hyperlipidemia, unspecified; K21.9 Gastro-esophageal reflux disease without esophagitis; I25.10 Atherosclerotic heart disease of native coronary artery without angina pectoris; Z86.718 Personal history of other venous thrombosis and embolism; Z86.711 Personal history of pulmonary embolism; M19.90 Unspecified osteoarthritis, unspecified site; E66.9 Obesity, unspecified; F17.210 Nicotine dependence, cigarettes, uncomplicated; E05.90 Thyrotoxicosis, unspecified without thyrotoxic crisis or storm; R41.0 Disorientation, unspecified

== ENCOUNTER → 2021-02-17 | Outpatient (REF) | payer MEDICARE, OTHER ==
[~2021-02-17] MED LIST changes: +FAMO20TA PO
== END ==
LOC: M LAB REF 12:09
PROVIDERS: ATTEND Internal Medicine
DX: I48.20 Chronic atrial fibrillation, unspecified (principal)

== ENCOUNTER 2021-03-30 18:57 | Emergency (ER) | payer MEDICARE, OTHER ==
[~2021-03-30] VITALS: Ht 167.6 cm; Wt 99.1 kg
[~2021-03-30 18:57] MED LIST changes: +ASPI-161 PO; +ASPI81CH33 PO; +BISO5TAB14 PO; +BUPR300T92 PO; +BUPR75TA5 PO; +DICL1GEL3 TOP; +DIGO0.123 PO; +DIOV40TA PO; +FAMO1TAB11 PO; +FLUO-96 PO; -FLUO20CA20 PO; +LASI40TA9 PO; +METO25TA4 PO; +METO37.5 PO; +METO50TA7 PO; +QC A650T3 PO
[2021-03-30 19:45] LABS: BASO % 0.3 % (0.0-1.0); EOS # 0.1 10^3/uL (0.0-0.5); EOS % 1.2 % (0.0-3.0); HEMATOCRIT 37.1 % (36.0-47.0); HEMOGLOBIN 11.6 g/dl (12.0-15.5); LYMPH # 1.3 10^3/uL (1.5-5.0); LYMPH % 21.8 % (24.0-44.0); MEAN CORPUSCULAR HEMOGLOBIN 31.5 pg (27.0-33.0); MEAN CORPUSCULAR HGB CONC 31.3 g/dl (32.0-36.5); MEAN CORPUSCULAR VOLUME 100.8 fl (80.0-96.0); MONO # 0.4 10^3/uL (0.0-0.8); MONO % 7.1 % (2.0-8.0); NEUTROPHILS # 4.2 10^3/uL (1.5-8.5); NEUTROPHILS % 69.3 % (36.0-66.0); PLATELET COUNT, AUTOMATED 198 10^3/uL (150-450); RED BLOOD COUNT 3.68 10^6/uL (4.00-5.40); WHITE BLOOD COUNT 6.1 10^3/uL (4.0-10.0)
[2021-03-30 19:56] LABS: INR 1.28; PROTHROMBIN TIME 16.4 SECONDS (12.7-14.5)
[2021-03-30 19:57] LABS: PARTIAL THROMBOPLASTIN TIME 37.2 SECONDS (25.9-37.0)
[2021-03-30 20:05] LABS: CK-MB VALUE MASS < 1.0 NG/ML (<3.6); CPK CREATINE PHOSPHOKINASE 30 U/L (26-192); MB/CK RELATIVE INDEX 3.33 (< OR =4)
[2021-03-30 20:08] LABS: CK-MB VALUE MASS < 1.0 NG/ML (<3.6); CPK CREATINE PHOSPHOKINASE 32 U/L (26-192); MB/CK RELATIVE INDEX 3.12 (< OR =4)
[2021-03-30 20:11] LABS: CALCIUM LEVEL 11.1 MG/DL (8.8-10.2); CREATININE FOR GFR 1.04 MG/DL (0.55-1.30); GLOMERULAR FILTRATION RATE 56.4 (>45); POTASSIUM SERUM 4.6 MEQ/L (3.5-5.1)
[2021-03-30] MEDS ORDERED: ISOVUE-370 76% 100ML VIAL As Ordered ONE (20:27)
[2021-03-30 22:49] LABS: CK-MB VALUE MASS 1.1 NG/ML (<3.6); MB/CK RELATIVE INDEX 3.93 (< OR =4)
[2021-03-31] MEDS ORDERED: DIGO0.123 PO (01:02)
[2021-03-31] MEDS ORDERED: BISO5TAB14 PO (01:02)
[2021-03-31] MEDS ORDERED: VALS40TA9 PO (01:02)
[2021-03-31] MEDS ORDERED: METH25TAB PO (01:02)
[2021-03-31] MEDS ORDERED: FURO40TA2 PO (01:02)
[2021-03-31 07:26] VITALS: BP 125/95
== END 2021-03-31 08:09 | disposition home or self-care (01) ==
LOC: M ED 18:57 → EDBD 18:57 → M ED 03-31 08:09
DX: R07.89 Other chest pain (principal); I48.91 Unspecified atrial fibrillation; I45.10 Unspecified right bundle-branch block; I44.7 Left bundle-branch block, unspecified; I45.2 Bifascicular block; I10 Essential (primary) hypertension; Z86.711 Personal history of pulmonary embolism; Z86.718 Personal history of other venous thrombosis and embolism; F17.200 Nicotine dependence, unspecified, uncomplicated; Z82.49 Family history of ischemic heart disease and other diseases of the circulatory system; Z79.01 Long term (current) use of anticoagulants; I51.7 Cardiomegaly; Z79.82 Long term (current) use of aspirin; Z79.899 Other long term (current) drug therapy; Z88.6 Allergy status to analgesic agent
CPT/HCPCS: 71045; 71275; 80048; 82550; 82553; 83880; 84484; 85025; 85610; 85730; 87798; 93005; 93041; 93970; 94760; 99285; Q9967

== ENCOUNTER → 2021-05-06 | Outpatient (CLI) | payer MEDICARE, OTHER ==
[~2021-05-06] MED LIST changes: +FURO40TA2 PO; +METH25TAB PO; +VALS40TA9 PO
== END ==
LOC: M RAD 09:40
PROVIDERS: ATTEND Surgery
DX: I70.248 Atherosclerosis of native arteries of left leg with ulceration of other part of lower leg (principal); L97.822 Non-pressure chronic ulcer of other part of left lower leg with fat layer exposed

== ENCOUNTER 2021-05-12 15:42 | Inpatient (IN) | payer MEDICARE, OTHER, MEDICAID ==
[~2021-05-12] VITALS: Ht 160 cm; Wt 84.2 kg
[2021-05-12] MEDS: METOPROLOL 5 MG/5 ML VIAL IV SCH ×3 (16:00→17:30)
[2021-05-12 16:44] LABS: BASO % 0.5 % (0.0-1.0); EOS % 0.8 % (0.0-3.0); HEMATOCRIT 39.9 % (36.0-47.0); HEMOGLOBIN 12.5 g/dl (12.0-15.5); LYMPH # 0.9 10^3/uL (1.5-5.0); LYMPH % 24.4 % (24.0-44.0); MEAN CORPUSCULAR HEMOGLOBIN 31.3 pg (27.0-33.0); MEAN CORPUSCULAR HGB CONC 31.3 g/dl (32.0-36.5); MONO # 0.3 10^3/uL (0.0-0.8); MONO % 8.5 % (2.0-8.0); NEUTROPHILS # 2.5 10^3/uL (1.5-8.5); NEUTROPHILS % 65.5 % (36.0-66.0); PLATELET COUNT, AUTOMATED 107 10^3/uL (150-450); RED BLOOD COUNT 3.99 10^6/uL (4.00-5.40); WHITE BLOOD COUNT 3.8 10^3/uL (4.0-10.0)
[2021-05-12 16:57] LABS: INR 1.33; PROTHROMBIN TIME 16.9 SECONDS (12.7-14.5)
[2021-05-12 16:58] LABS: PARTIAL THROMBOPLASTIN TIME 38.1 SECONDS (25.9-37.0)
[2021-05-12 17:04] LABS: CK-MB VALUE MASS < 1.0 NG/ML (<3.6); CPK CREATINE PHOSPHOKINASE 32 U/L (26-192); MB/CK RELATIVE INDEX 3.12 (< OR =4)
[2021-05-12 17:19] LABS: ALBUMIN 2.8 GM/DL (3.2-5.2); ALT/SGPT 17 U/L (12-78); BILIRUBIN,DIRECT 0.7 MG/DL (0.0-0.2); BILIRUBIN,TOTAL 1.4 MG/DL (0.2-1.0); BLOOD UREA NITROGEN 19 MG/DL (7-18); CALCIUM LEVEL 10.4 MG/DL (8.8-10.2); CARBON DIOXIDE LEVEL 19 MEQ/L (21-32); CHLORIDE LEVEL 109 MEQ/L (98-107); CREATININE FOR GFR 0.95 MG/DL (0.55-1.30); DIGOXIN LEVEL 0.5 NG/ML (0.5-2.0); FREE T4 2.04 NG/DL (0.76-1.46); GLOMERULAR FILTRATION RATE > 60.0 (>45); GLUCOSE, FASTING 91 MG/DL (70-100); NT-PRO BNP 20382 PG/ML (<125); SODIUM LEVEL 139 MEQ/L (136-145); THYROID STIMULATING HORMONE 0.115 uIU/ML (0.358-3.740); TOTAL PROTEIN 7.4 GM/DL (6.4-8.2)
[2021-05-12 17:30] LABS: ERYTHROCYTE SEDIMENTATION RATE 70 mm/hr (0-30)
[2021-05-12 17:46] LABS: RSV AMPLIFICATION NEGATIVE (NEGATIVE)
[2021-05-12 18:20] LABS: CK-MB VALUE MASS 1.4 NG/ML (<3.6); MB/CK RELATIVE INDEX 3.68 (< OR =4)
[2021-05-12] MEDS ORDERED: METH25TAB PO (18:31)
[2021-05-12] MEDS ORDERED: HOME MED LIST COMPLETE! XX SCH (18:35)
[2021-05-12] MEDS ORDERED: METOPROLOL TART 25 MG TABLET PO ONE (18:35)
[2021-05-12] MEDS: DIGOXIN 0.125 MG TAB PO SCH (19:15)
[2021-05-12] MEDS ORDERED: FUROSEMIDE 40MG/4ML VIAL (J1940) IV SCH (21:00)
[2021-05-12] MEDS ORDERED: bisoproloL fumarate 5 MG TAB PO SCH (21:00)
[2021-05-12 21:13] LABS: CK-MB VALUE MASS 1.3 NG/ML (<3.6); MB/CK RELATIVE INDEX 3.02 (< OR =4)
[2021-05-12] MEDS: APIXABAN 5 MG TAB (ELIQUIS) PO SCH (22:10)
[2021-05-12] MEDS: FAMOTIDINE 20 MG TAB PO SCH (22:11)
[2021-05-12] MEDS: ATORVASTATIN 20 MG TAB PO SCH (22:11)
[2021-05-12] MEDS: FUROSEMIDE 20MG/2ML VIAL (J1940) IV SCH (22:12)
[2021-05-12] MEDS: VALSARTAN 80 MG TAB (DIOVAN) PO SCH (23:23)
[2021-05-13 00:11] LABS: MB/CK RELATIVE INDEX 5.26 (< OR =4)
[2021-05-13] MEDS ORDERED: RAMELTEON 8 MG TAB (ROZEREM) PO PRN (03:00)
[2021-05-13 03:17] LABS: CK-MB VALUE MASS < 1.0 NG/ML (<3.6); CPK CREATINE PHOSPHOKINASE 47 U/L (26-192); MB/CK RELATIVE INDEX 2.13 (< OR =4)
[2021-05-13] MEDS ORDERED: ALPRAZolam 0.25 MG TAB PO ONE (04:00)
[2021-05-13 07:02] LABS: BASO % 0.9 % (0.0-1.0); EOS % 0.9 % (0.0-3.0); HEMATOCRIT 39.2 % (36.0-47.0); HEMOGLOBIN 11.8 g/dl (12.0-15.5); LYMPH # 0.9 10^3/uL (1.5-5.0); LYMPH % 26.3 % (24.0-44.0); MEAN CORPUSCULAR HEMOGLOBIN 30.2 pg (27.0-33.0); MEAN CORPUSCULAR HGB CONC 30.1 g/dl (32.0-36.5); MEAN CORPUSCULAR VOLUME 100.3 fl (80.0-96.0); MONO # 0.4 10^3/uL (0.0-0.8); MONO % 10.9 % (2.0-8.0); NEUTROPHILS # 2.1 10^3/uL (1.5-8.5); NEUTROPHILS % 60.7 % (36.0-66.0); PLATELET COUNT, AUTOMATED 101 10^3/uL (150-450); RED BLOOD COUNT 3.91 10^6/uL (4.00-5.40); WHITE BLOOD COUNT 3.5 10^3/uL (4.0-10.0)
[2021-05-13 07:24] LABS: CALCIUM LEVEL 9.8 MG/DL (8.8-10.2); CHOLESTEROL RISK RATIO 2.615 (<5); CK-MB VALUE MASS 1.7 NG/ML (<3.6); CREATININE FOR GFR 1.12 MG/DL (0.55-1.30); GLOMERULAR FILTRATION RATE 51.8 (>45); MB/CK RELATIVE INDEX 3.7 (< OR =4)
[2021-05-13 08:00] VITALS: BP 120/84
[2021-05-13] MEDS: MULTIVITAMINS/MINERALS THERAP 1 TAB PO SCH (10:22)
[2021-05-13] MEDS: buPROPion **XL** TABLET 150MG (WELLBUTRIN XL) PO SCH (10:23)
[2021-05-13] MEDS: FAMOTIDINE 20 MG TAB PO SCH ×2 (10:23→20:49)
[2021-05-13] MEDS: APIXABAN 5 MG TAB (ELIQUIS) PO SCH ×2 (10:24→20:49)
[2021-05-13] MEDS: DIGOXIN 0.125 MG TAB PO SCH (10:24)
[2021-05-13] MEDS: FUROSEMIDE 20MG/2ML VIAL (J1940) IV SCH (10:25)
[2021-05-13] MEDS: bisoproloL fumarate 5 MG TAB PO SCH ×2 (10:25→20:50)
[2021-05-13 12:00] VITALS: BP 131/63
[2021-05-13 12:56] LABS: APPEARANCE, URINE CLEAR (CLEAR); BACTERIA, URINE AUTO 1+ (NEGATIVE); BILIRUBIN, URINE AUTO NEGATIVE (NEGATIVE); BLOOD, URINE BLOOD NEGATIVE (NEGATIVE); COLOR, URINE YELLOW (YELLOW); GLUCOSE, URINE (UA) AUTO NEGATIVE (NEGATIVE); KETONE, URINE AUTO NEGATIVE (NEGATIVE); LEUKOCYTE ESTERASE, URINE AUTO NEGATIVE (NEGATIVE); MUCUS, URINE SMALL (NEGATIVE); NITRITE, URINE AUTO NEGATIVE (NEGATIVE); PROTEIN, URINE AUTO NEGATIVE (NEGATIVE); RBC, URINE AUTO 0 /HPF (0-3); SPECIFIC GRAVITY URINE AUTO 1.006 (1.002-1.035); SQUAMOUS EPITHELIAL CELL UR AU 1 /HPF (0-6); UROBILINOGEN, URINE AUTO 0.2 mg/dL (0.0-2.0); WBC, URINE AUTO 1 /HPF (0-3)
[2021-05-13 13:35] LABS: FREE T4 1.88 NG/DL (0.76-1.46); THYROID STIMULATING HORMONE 0.083 uIU/ML (0.358-3.740); TOTAL PROTEIN 7.6 GM/DL (6.4-8.2)
[2021-05-13 13:36] LABS: PTH INTACT 55.9 PG/ML (18.5-88.0); TOTAL 25(OH) VITAMIN D 31.8 NG/ML (30.0-100.0)
[2021-05-13 14:05] VITALS: BP 125/85
[2021-05-13] MEDS: FLECAINIDE 50MG TABLET PO SCH ×2 (15:08→20:49)
[2021-05-13 15:15] LABS: MAGNESIUM LEVEL 1.6 MG/DL (1.7-2.2)
[2021-05-13 16:00] VITALS: BP 126/80
[2021-05-13] MEDS: NYSTATIN 100,000 UNITS/GM TOPICAL PWD 15 GM TOP SCH ×3 (16:00→20:51)
[2021-05-13] MEDS: MAG SULF 1GM/100ML (MAG RUN) 1 GM in IV 1 EA IV SCH ×2 (17:01→17:56)
[2021-05-13 17:16] LABS: MAGNESIUM LEVEL 1.6 MG/DL (1.7-2.2)
[2021-05-13 20:00] VITALS: BP 134/66
[2021-05-13] MEDS: ATORVASTATIN 20 MG TAB PO SCH (20:48)
[2021-05-13] MEDS: VALSARTAN 80 MG TAB (DIOVAN) PO SCH (20:49)
[2021-05-14] VITALS (8 sets, daily range): BP systolic 108–141; BP diastolic 56–76
[2021-05-14] MEDS ORDERED: hydrOXYzine 25 MG TAB PO PRN (00:50)
[2021-05-14 07:14] LABS: BASO % 0.4 % (0.0-1.0); EOS % 0.6 % (0.0-3.0); HEMATOCRIT 37.7 % (36.0-47.0); HEMOGLOBIN 11.5 g/dl (12.0-15.5); LYMPH # 0.8 10^3/uL (1.5-5.0); LYMPH % 15.9 % (24.0-44.0); MEAN CORPUSCULAR HEMOGLOBIN 30.7 pg (27.0-33.0); MEAN CORPUSCULAR HGB CONC 30.5 g/dl (32.0-36.5); MEAN CORPUSCULAR VOLUME 100.5 fl (80.0-96.0); MONO # 0.5 10^3/uL (0.0-0.8); MONO % 11.3 % (2.0-8.0); NEUTROPHILS # 3.4 10^3/uL (1.5-8.5); NEUTROPHILS % 71.4 % (36.0-66.0); PLATELET COUNT, AUTOMATED 106 10^3/uL (150-450); RED BLOOD COUNT 3.75 10^6/uL (4.00-5.40); WHITE BLOOD COUNT 4.7 10^3/uL (4.0-10.0)
[2021-05-14 07:35] LABS: CALCIUM LEVEL 9.8 MG/DL (8.8-10.2); CREATININE FOR GFR 1.16 MG/DL (0.55-1.30); GLOMERULAR FILTRATION RATE 49.8 (>45); POTASSIUM SERUM 3.9 MEQ/L (3.5-5.1)
[2021-05-14] MEDS: bisoproloL fumarate 5 MG TAB PO SCH ×2 (09:12→20:47)
[2021-05-14] MEDS: FLECAINIDE 50MG TABLET PO SCH ×2 (09:12→20:48)
[2021-05-14] MEDS: buPROPion **XL** TABLET 150MG (WELLBUTRIN XL) PO SCH (09:12)
[2021-05-14] MEDS: FAMOTIDINE 20 MG TAB PO SCH ×2 (09:12→20:48)
[2021-05-14] MEDS: MULTIVITAMINS/MINERALS THERAP 1 TAB PO SCH (09:12)
[2021-05-14] MEDS: APIXABAN 5 MG TAB (ELIQUIS) PO SCH ×2 (09:12→20:48)
[2021-05-14] MEDS: NYSTATIN 100,000 UNITS/GM TOPICAL PWD 15 GM TOP SCH ×3 (09:13→20:44)
[2021-05-14] MEDS: DIGOXIN 0.125 MG TAB PO SCH (09:15)
[2021-05-14 10:21] LABS: ALBUMIN 3.13 GM/DL (3.29-5.55); ALBUMIN % 41.2 % (55.8-66.1); ALPHA-1-GLOBULIN % 4.7 % (2.9-4.9); ALPHA-1-GLOBULINS 0.36 GM/DL (0.17-0.41); ALPHA-2-GLOBULINS 0.64 GM/DL (0.42-0.99); ALPHA-2-GLOBULINS % 8.4 % (7.1-11.8); BETA-1-GLOBULINS 0.41 GM/DL (0.28-0.60); BETA-1-GLOBULINS % 5.4 % (4.7-7.2); BETA-2-GLOBULINS 2.66 GM/DL (0.19-0.55)
[2021-05-14 10:22] LABS: GAMMA GLOBULIN % 5.3 % (11.1-18.8)
[2021-05-14] MEDS: ACETAMINOPHEN TAB 650MG DOSE (2X325MG) PO PRN (15:19)
[2021-05-14 19:07] LABS: MAGNESIUM LEVEL 1.9 MG/DL (1.7-2.2)
[2021-05-14] MEDS: VALSARTAN 80 MG TAB (DIOVAN) PO SCH (20:47)
[2021-05-14] MEDS: ATORVASTATIN 20 MG TAB PO SCH (20:48)
[2021-05-15 04:20] VITALS: BP 108/63
[2021-05-15 05:06] LABS: BASO % 0.2 % (0.0-1.0); EOS % 0.9 % (0.0-3.0); HEMATOCRIT 37.4 % (36.0-47.0); HEMOGLOBIN 11.3 g/dl (12.0-15.5); LYMPH # 0.7 10^3/uL (1.5-5.0); LYMPH % 15.2 % (24.0-44.0); MEAN CORPUSCULAR HGB CONC 30.2 g/dl (32.0-36.5); MEAN CORPUSCULAR VOLUME 102.5 fl (80.0-96.0); MONO # 0.3 10^3/uL (0.0-0.8); MONO % 6.7 % (2.0-8.0); NEUTROPHILS # 3.6 10^3/uL (1.5-8.5); NEUTROPHILS % 76.8 % (36.0-66.0); PLATELET COUNT, AUTOMATED 106 10^3/uL (150-450); RED BLOOD COUNT 3.65 10^6/uL (4.00-5.40); WHITE BLOOD COUNT 4.6 10^3/uL (4.0-10.0)
[2021-05-15 05:36] LABS: CALCIUM LEVEL 9.6 MG/DL (8.8-10.2); CREATININE FOR GFR 1.38 MG/DL (0.55-1.30); GLOMERULAR FILTRATION RATE 40.7 (>45); POTASSIUM SERUM 4.3 MEQ/L (3.5-5.1)
[2021-05-15 08:00] VITALS: BP 113/58
[2021-05-15] MEDS: MULTIVITAMINS/MINERALS THERAP 1 TAB PO SCH (08:22)
[2021-05-15] MEDS: bisoproloL fumarate 5 MG TAB PO SCH ×2 (08:28→20:22)
[2021-05-15] MEDS: APIXABAN 5 MG TAB (ELIQUIS) PO SCH ×2 (08:28→20:25)
[2021-05-15] MEDS: FAMOTIDINE 20 MG TAB PO SCH ×2 (08:28→20:25)
[2021-05-15] MEDS: NYSTATIN 100,000 UNITS/GM TOPICAL PWD 15 GM TOP SCH ×3 (08:29→20:24)
[2021-05-15] MEDS: DIGOXIN 0.125 MG TAB PO SCH (08:29)
[2021-05-15] MEDS: buPROPion **XL** TABLET 150MG (WELLBUTRIN XL) PO SCH (08:29)
[2021-05-15] MEDS: FLECAINIDE 50MG TABLET PO SCH ×2 (08:29→20:24)
[2021-05-15] MEDS: NS 1,000 ML IV SCH ×2 (09:02→20:25)
[2021-05-15 12:00] VITALS: BP 107/63
[2021-05-15 15:11] LABS: MAGNESIUM LEVEL 2.1 MG/DL (1.8-2.4)
[2021-05-15 16:00] VITALS: BP 127/73
[2021-05-15 20:00] VITALS: BP 111/62
[2021-05-15] MEDS: ATORVASTATIN 20 MG TAB PO SCH (20:24)
[2021-05-15] MEDS ORDERED: RAMELTEON 8 MG TAB (ROZEREM) PO PRN (22:10)
[2021-05-16] VITALS: BP 132/81
[2021-05-16 07:41] LABS: BASO % 0.5 % (0.0-1.0); EOS % 0.9 % (0.0-3.0); HEMATOCRIT 39.1 % (36.0-47.0); HEMOGLOBIN 11.9 g/dl (12.0-15.5); LYMPH # 0.8 10^3/uL (1.5-5.0); LYMPH % 19.4 % (24.0-44.0); MEAN CORPUSCULAR HEMOGLOBIN 30.7 pg (27.0-33.0); MEAN CORPUSCULAR HGB CONC 30.4 g/dl (32.0-36.5); MONO # 0.3 10^3/uL (0.0-0.8); MONO % 7.6 % (2.0-8.0); NEUTROPHILS % 71.1 % (36.0-66.0); PLATELET COUNT, AUTOMATED 105 10^3/uL (150-450); RED BLOOD COUNT 3.87 10^6/uL (4.00-5.40); WHITE BLOOD COUNT 4.2 10^3/uL (4.0-10.0)
[2021-05-16 08:00] VITALS: BP 125/66
[2021-05-16 08:00] LABS: CALCIUM LEVEL 9.7 MG/DL (8.8-10.2); CREATININE FOR GFR 1.19 MG/DL (0.55-1.30); GLOMERULAR FILTRATION RATE 48.3 (>45); POTASSIUM SERUM 4.3 MEQ/L (3.5-5.1)
[2021-05-16] MEDS: FAMOTIDINE 20 MG TAB PO SCH ×2 (09:03→20:01)
[2021-05-16] MEDS: MULTIVITAMINS/MINERALS THERAP 1 TAB PO SCH (09:03)
[2021-05-16] MEDS: DIGOXIN 0.125 MG TAB PO SCH (09:04)
[2021-05-16] MEDS: APIXABAN 5 MG TAB (ELIQUIS) PO SCH ×2 (09:04→20:01)
[2021-05-16] MEDS: buPROPion **XL** TABLET 150MG (WELLBUTRIN XL) PO SCH (09:04)
[2021-05-16] MEDS: FLECAINIDE 50MG TABLET PO SCH ×2 (09:04→20:01)
[2021-05-16] MEDS: bisoproloL fumarate 5 MG TAB PO SCH ×2 (09:05→20:01)
[2021-05-16] MEDS: NYSTATIN 100,000 UNITS/GM TOPICAL PWD 15 GM TOP SCH ×3 (09:05→20:01)
[2021-05-16 12:40] LABS: HEMATOCRIT 38.4 % (36.0-47.0); HEMOGLOBIN 11.9 g/dl (12.0-15.5)
[2021-05-16 16:00] VITALS: BP 119/66
[2021-05-16] MEDS: CAPSAICIN 0.025% CR 60 GM TOP SCH ×2 (16:00→20:00)
[2021-05-16 20:00] VITALS: BP 133/86
[2021-05-16] MEDS: ATORVASTATIN 20 MG TAB PO SCH (20:01)
[2021-05-17] MEDS: ACETAMINOPHEN TAB 650MG DOSE (2X325MG) PO PRN ×2 (03:52→20:54)
[2021-05-17 04:00] VITALS: BP 135/75
[2021-05-17 05:44] LABS: BASO % 0.5 % (0.0-1.0); EOS % 0.7 % (0.0-3.0); HEMATOCRIT 35.4 % (36.0-47.0); HEMOGLOBIN 10.8 g/dl (12.0-15.5); LYMPH # 0.8 10^3/uL (1.5-5.0); LYMPH % 18.7 % (24.0-44.0); MEAN CORPUSCULAR HEMOGLOBIN 30.7 pg (27.0-33.0); MEAN CORPUSCULAR HGB CONC 30.5 g/dl (32.0-36.5); MEAN CORPUSCULAR VOLUME 100.6 fl (80.0-96.0); MONO # 0.3 10^3/uL (0.0-0.8); MONO % 7.6 % (2.0-8.0); NEUTROPHILS # 3.1 10^3/uL (1.5-8.5); PLATELET COUNT, AUTOMATED 100 10^3/uL (150-450); RED BLOOD COUNT 3.52 10^6/uL (4.00-5.40); WHITE BLOOD COUNT 4.3 10^3/uL (4.0-10.0)
[2021-05-17 06:05] LABS: BLOOD UREA NITROGEN 31 MG/DL (7-18); CALCIUM LEVEL 9.6 MG/DL (8.8-10.2); CARBON DIOXIDE LEVEL 18 MEQ/L (21-32); CHLORIDE LEVEL 115 MEQ/L (98-107); CREATININE FOR GFR 0.92 MG/DL (0.55-1.30); GLOMERULAR FILTRATION RATE > 60.0 (>45); GLUCOSE, FASTING 90 MG/DL (70-100); POTASSIUM SERUM 4.2 MEQ/L (3.5-5.1); SODIUM LEVEL 141 MEQ/L (136-145)
[2021-05-17 08:00] VITALS: BP 134/70
[2021-05-17] MEDS: FLECAINIDE 50MG TABLET PO SCH ×2 (08:33→20:39)
[2021-05-17] MEDS: bisoproloL fumarate 5 MG TAB PO SCH ×2 (08:33→20:39)
[2021-05-17] MEDS: APIXABAN 5 MG TAB (ELIQUIS) PO SCH ×2 (08:33→20:39)
[2021-05-17] MEDS: MULTIVITAMINS/MINERALS THERAP 1 TAB PO SCH (08:33)
[2021-05-17] MEDS: buPROPion **XL** TABLET 150MG (WELLBUTRIN XL) PO SCH (08:34)
[2021-05-17] MEDS: DIGOXIN 0.125 MG TAB PO SCH (08:34)
[2021-05-17] MEDS: FAMOTIDINE 20 MG TAB PO SCH ×2 (08:34→20:39)
[2021-05-17] MEDS: CAPSAICIN 0.025% CR 60 GM TOP SCH ×3 (08:35→20:40)
[2021-05-17] MEDS: NYSTATIN 100,000 UNITS/GM TOPICAL PWD 15 GM TOP SCH ×3 (08:35→20:40)
[2021-05-17 09:56] LABS: VENOUS BASE EXCESS -6.9 (-2.0-2.0); VENOUS HCO3 19.8 MEQ/L (23.0-27.0); VENOUS O2 SATURATION 61.7 % (60.0-80.0); VENOUS PARTIAL PRESSURE CO2 44.3 mmHg (38.0-50.0); VENOUS PARTIAL PRESSURE O2 36.6 mmHg (30.0-50.0); VENOUS PH 7.268 UNITS (7.330-7.430); VENOUS STANDARD HCO3 18.1 MEQ/L; VENOUS TOTAL CO2 21.2 MEQ/L (24.0-28.0)
[2021-05-17 10:48] LABS: APPEARANCE, URINE HAZY (CLEAR); BACTERIA, URINE AUTO 2+ (NEGATIVE); BILIRUBIN, URINE AUTO NEGATIVE (NEGATIVE); BLOOD, URINE BLOOD NEGATIVE (NEGATIVE); COLOR, URINE AMBER (YELLOW); GLUCOSE, URINE (UA) AUTO NEGATIVE (NEGATIVE); KETONE, URINE AUTO NEGATIVE (NEGATIVE); LEUKOCYTE ESTERASE, URINE AUTO 1+ (NEGATIVE); NITRITE, URINE AUTO POSITIVE (NEGATIVE); PROTEIN, URINE AUTO 1+ mg/dL (NEGATIVE); RBC, URINE AUTO 4 /HPF (0-3); SPECIFIC GRAVITY URINE AUTO 1.021 (1.002-1.035); SQUAMOUS EPITHELIAL CELL UR AU 2 /HPF (0-6); WBC, URINE AUTO 47 /HPF (0-3)
[2021-05-17 10:58] LABS: CHLORIDE,RANDOM URINE 102 MEQ/L; POTASSIUM RANDOM URINE 41.3 MEQ/L; SODIUM,RANDOM URINE 79 MEQ/L
[2021-05-17 11:18] LABS: OSMOLALITY URINE 784 MOSM/KG (50-1400)
[2021-05-17 12:00] VITALS: BP 138/65
[2021-05-17] MEDS: cefTRIAXone SOD 1 GM in D5W MINI-BAG PLUS 50 ML IV SCH (13:54)
[2021-05-17] MEDS: SODIUM BICARBONATE 325 MG TAB PO SCH ×3 (13:54→20:39)
[2021-05-17 16:00] VITALS: BP 135/71
[2021-05-17 20:00] VITALS: BP 143/74
[2021-05-17] MEDS: ATORVASTATIN 20 MG TAB PO SCH (20:39)
[2021-05-18 04:00] VITALS: BP 132/67
[2021-05-18 05:41] LABS: BASO % 0.4 % (0.0-1.0); EOS # 0.1 10^3/uL (0.0-0.5); EOS % 1.3 % (0.0-3.0); HEMATOCRIT 36.7 % (36.0-47.0); HEMOGLOBIN 11.3 g/dl (12.0-15.5); LYMPH # 0.8 10^3/uL (1.5-5.0); LYMPH % 18.4 % (24.0-44.0); MEAN CORPUSCULAR HGB CONC 30.8 g/dl (32.0-36.5); MEAN CORPUSCULAR VOLUME 100.5 fl (80.0-96.0); MONO # 0.4 10^3/uL (0.0-0.8); MONO % 8.5 % (2.0-8.0); NEUTROPHILS # 3.2 10^3/uL (1.5-8.5); NEUTROPHILS % 71.2 % (36.0-66.0); RED BLOOD COUNT 3.65 10^6/uL (4.00-5.40); WHITE BLOOD COUNT 4.5 10^3/uL (4.0-10.0)
[2021-05-18 05:58] LABS: PLATELET COUNT, AUTOMATED 94 10^3/uL (150-450)
[2021-05-18 06:01] LABS: BLOOD UREA NITROGEN 29 MG/DL (7-18); CALCIUM LEVEL 9.7 MG/DL (8.8-10.2); CARBON DIOXIDE LEVEL 18 MEQ/L (21-32); CHLORIDE LEVEL 114 MEQ/L (98-107); CREATININE FOR GFR 0.94 MG/DL (0.55-1.30); GLOMERULAR FILTRATION RATE > 60.0 (>45); GLUCOSE, FASTING 100 MG/DL (70-100); POTASSIUM SERUM 4.4 MEQ/L (3.5-5.1); SODIUM LEVEL 141 MEQ/L (136-145)
[2021-05-18] MEDS: CAPSAICIN 0.025% CR 60 GM TOP SCH ×3 (08:30→18:21)
[2021-05-18] MEDS: NYSTATIN 100,000 UNITS/GM TOPICAL PWD 15 GM TOP SCH ×3 (08:30→20:45)
[2021-05-18] MEDS: ACETAMINOPHEN TAB 650MG DOSE (2X325MG) PO PRN ×2 (08:30→18:20)
[2021-05-18 08:31] VITALS: BP 135/60
[2021-05-18] MEDS: MULTIVITAMINS/MINERALS THERAP 1 TAB PO SCH (08:32)
[2021-05-18] MEDS: FAMOTIDINE 20 MG TAB PO SCH ×2 (08:32→20:30)
[2021-05-18] MEDS: SODIUM BICARBONATE 325 MG TAB PO SCH ×4 (08:32→20:28)
[2021-05-18] MEDS: buPROPion **XL** TABLET 150MG (WELLBUTRIN XL) PO SCH (08:32)
[2021-05-18] MEDS: APIXABAN 5 MG TAB (ELIQUIS) PO SCH ×2 (08:33→20:30)
[2021-05-18] MEDS: FLECAINIDE 50MG TABLET PO SCH ×2 (08:33→20:29)
[2021-05-18] MEDS: DIGOXIN 0.125 MG TAB PO SCH (08:34)
[2021-05-18 10:37] VITALS: BP 126/80
[2021-05-18] MEDS: bisoproloL fumarate 5 MG TAB PO SCH ×2 (10:37→20:30)
[2021-05-18 12:34] VITALS: BP 160/86
[2021-05-18] MEDS: cefTRIAXone SOD 1 GM in D5W MINI-BAG PLUS 50 ML IV SCH (14:57)
[2021-05-18 20:00] VITALS: BP 145/87
[2021-05-18] MEDS: ATORVASTATIN 20 MG TAB PO SCH (20:30)
[2021-05-18 22:10] VITALS: BP 133/61
[2021-05-18] MEDS ORDERED: PERCOCET 5MG/325MG TAB PO ONE (22:50)
[2021-05-19 06:42] VITALS: BP 135/63
[2021-05-19 07:26] LABS: BASO % 0.5 % (0.0-1.0); EOS # 0.1 10^3/uL (0.0-0.5); EOS % 2.5 % (0.0-3.0); HEMATOCRIT 35.4 % (36.0-47.0); HEMOGLOBIN 10.9 g/dl (12.0-15.5); LYMPH # 0.8 10^3/uL (1.5-5.0); MEAN CORPUSCULAR HEMOGLOBIN 30.7 pg (27.0-33.0); MEAN CORPUSCULAR HGB CONC 30.8 g/dl (32.0-36.5); MEAN CORPUSCULAR VOLUME 99.7 fl (80.0-96.0); MONO # 0.3 10^3/uL (0.0-0.8); MONO % 9.3 % (2.0-8.0); NEUTROPHILS # 2.4 10^3/uL (1.5-8.5); NEUTROPHILS % 64.2 % (36.0-66.0); RED BLOOD COUNT 3.55 10^6/uL (4.00-5.40); WHITE BLOOD COUNT 3.7 10^3/uL (4.0-10.0)
[2021-05-19 07:30] LABS: PLATELET COUNT, AUTOMATED 88 10^3/uL (150-450)
[2021-05-19 07:51] LABS: BLOOD UREA NITROGEN 22 MG/DL (7-18); CALCIUM LEVEL 9.9 MG/DL (8.8-10.2); CARBON DIOXIDE LEVEL 22 MEQ/L (21-32); CHLORIDE LEVEL 112 MEQ/L (98-107); CREATININE FOR GFR 0.79 MG/DL (0.55-1.30); GLOMERULAR FILTRATION RATE > 60.0 (>45); GLUCOSE, FASTING 82 MG/DL (70-100); POTASSIUM SERUM 4.3 MEQ/L (3.5-5.1); SODIUM LEVEL 142 MEQ/L (136-145)
[2021-05-19] MEDS: buPROPion **XL** TABLET 150MG (WELLBUTRIN XL) PO SCH (09:17)
[2021-05-19] MEDS: FAMOTIDINE 20 MG TAB PO SCH ×2 (09:17→20:24)
[2021-05-19] MEDS: DIGOXIN 0.125 MG TAB PO SCH (09:18)
[2021-05-19] MEDS: SODIUM BICARBONATE 325 MG TAB PO SCH ×4 (09:18→20:24)
[2021-05-19] MEDS: APIXABAN 5 MG TAB (ELIQUIS) PO SCH ×2 (09:19→20:24)
[2021-05-19] MEDS: MULTIVITAMINS/MINERALS THERAP 1 TAB PO SCH (09:20)
[2021-05-19] MEDS: ACETAMINOPHEN TAB 650MG DOSE (2X325MG) PO PRN ×2 (09:20→20:29)
[2021-05-19] MEDS: bisoproloL fumarate 5 MG TAB PO SCH ×2 (09:24→20:30)
[2021-05-19] MEDS: FLECAINIDE 50MG TABLET PO SCH ×2 (12:47→20:24)
[2021-05-19] MEDS: CAPSAICIN 0.025% CR 60 GM TOP SCH ×3 (12:47→20:28)
[2021-05-19] MEDS: NYSTATIN 100,000 UNITS/GM TOPICAL PWD 15 GM TOP SCH ×3 (12:48→20:27)
[2021-05-19] MEDS: cefTRIAXone SOD 1 GM in D5W MINI-BAG PLUS 50 ML IV SCH (12:48)
[2021-05-19 14:00] VITALS: BP 150/56
[2021-05-19] MEDS ORDERED: ASPIRIN 81 MG CHEW TABLET PO ONE (18:35)
[2021-05-19] MEDS: ATORVASTATIN 20 MG TAB PO SCH (20:24)
[2021-05-19] MEDS: SUCRALFATE SUSP 1GM/10ML UD PO SCH (20:24)
[2021-05-19 22:00] VITALS: BP 164/86
[2021-05-20 04:30] VITALS: BP 105/70
[2021-05-20 06:36] LABS: BASO % 0.5 % (0.0-1.0); EOS # 0.1 10^3/uL (0.0-0.5); EOS % 2.6 % (0.0-3.0); HEMATOCRIT 36.9 % (36.0-47.0); HEMOGLOBIN 11.6 g/dl (12.0-15.5); LYMPH # 0.7 10^3/uL (1.5-5.0); LYMPH % 16.7 % (24.0-44.0); MEAN CORPUSCULAR HEMOGLOBIN 31.2 pg (27.0-33.0); MEAN CORPUSCULAR HGB CONC 31.4 g/dl (32.0-36.5); MEAN CORPUSCULAR VOLUME 99.2 fl (80.0-96.0); MONO # 0.4 10^3/uL (0.0-0.8); MONO % 9.8 % (2.0-8.0); NEUTROPHILS # 2.9 10^3/uL (1.5-8.5); NEUTROPHILS % 69.9 % (36.0-66.0); RED BLOOD COUNT 3.72 10^6/uL (4.00-5.40); WHITE BLOOD COUNT 4.2 10^3/uL (4.0-10.0)
[2021-05-20 06:37] LABS: PLATELET COUNT, AUTOMATED 98 10^3/uL (150-450)
[2021-05-20 07:02] LABS: BLOOD UREA NITROGEN 18 MG/DL (7-18); CARBON DIOXIDE LEVEL 23 MEQ/L (21-32); CHLORIDE LEVEL 110 MEQ/L (98-107); GLOMERULAR FILTRATION RATE > 60.0 (>45); GLUCOSE, FASTING 95 MG/DL (70-100); POTASSIUM SERUM 4.4 MEQ/L (3.5-5.1); SODIUM LEVEL 141 MEQ/L (136-145)
[2021-05-20] MEDS: NYSTATIN 100,000 UNITS/GM TOPICAL PWD 15 GM TOP SCH ×3 (09:00→21:00)
[2021-05-20] MEDS: DIGOXIN 0.125 MG TAB PO SCH (09:00)
[2021-05-20] MEDS: CAPSAICIN 0.025% CR 60 GM TOP SCH ×3 (09:00→21:00)
[2021-05-20] MEDS: SUCRALFATE SUSP 1GM/10ML UD PO SCH ×2 (09:15→20:02)
[2021-05-20] MEDS: FLECAINIDE 50MG TABLET PO SCH ×2 (09:17→20:03)
[2021-05-20] MEDS: MULTIVITAMINS/MINERALS THERAP 1 TAB PO SCH (09:18)
[2021-05-20] MEDS: SODIUM BICARBONATE 325 MG TAB PO SCH ×4 (09:18→20:02)
[2021-05-20] MEDS: ASPIRIN 81 MG CHEW TABLET PO SCH (09:19)
[2021-05-20] MEDS: bisoproloL fumarate 5 MG TAB PO SCH ×2 (09:19→20:03)
[2021-05-20] MEDS: APIXABAN 5 MG TAB (ELIQUIS) PO SCH ×2 (09:19→20:03)
[2021-05-20] MEDS: buPROPion **XL** TABLET 150MG (WELLBUTRIN XL) PO SCH (09:19)
[2021-05-20] MEDS: FAMOTIDINE 20 MG TAB PO SCH ×2 (09:20→20:03)
[2021-05-20] MEDS ORDERED: FUROSEMIDE 40MG/4ML VIAL (J1940) IV ONE (10:30)
[2021-05-20 10:33] VITALS: BP 150/79
[2021-05-20] MEDS ORDERED: RISATAB3 PO (10:34)
[2021-05-20] MEDS ORDERED: NYST10006 TOP (10:34)
[2021-05-20] MEDS ORDERED: AMOX875T2 PO (10:34)
[2021-05-20] MEDS ORDERED: SUCR1ORA PO (10:34)
[2021-05-20] MEDS: LACTOBACILLUS ACIDOPHILUS CAP (BACID) PO SCH ×3 (12:24→20:02)
[2021-05-20] MEDS: AUGMENTIN 875 MG TAB PO SCH ×2 (12:24→20:02)
[2021-05-20 14:00] VITALS: BP 146/83
[2021-05-20] MEDS: ATORVASTATIN 20 MG TAB PO SCH (20:03)
[2021-05-20] MEDS: PERCOCET 5MG/325MG TAB PO PRN (20:04)
[2021-05-20 22:00] VITALS: BP 147/76
[2021-05-21 04:07] LABS: PTH RELATED PEPTIDE < 2.0 pmol/L (.); VITAMIN D 1,25 DIHYDROXY 35.1 pg/mL (19.9-79.3)
[2021-05-21 06:00] VITALS: BP 154/81
[2021-05-21 06:35] LABS: BASO % 0.9 % (0.0-1.0); EOS # 0.1 10^3/uL (0.0-0.5); EOS % 3.6 % (0.0-3.0); HEMATOCRIT 36.9 % (36.0-47.0); HEMOGLOBIN 11.3 g/dl (12.0-15.5); LYMPH # 0.9 10^3/uL (1.5-5.0); LYMPH % 27.3 % (24.0-44.0); MEAN CORPUSCULAR HEMOGLOBIN 30.5 pg (27.0-33.0); MEAN CORPUSCULAR HGB CONC 30.6 g/dl (32.0-36.5); MEAN CORPUSCULAR VOLUME 99.5 fl (80.0-96.0); MONO # 0.4 10^3/uL (0.0-0.8); MONO % 11.5 % (2.0-8.0); NEUTROPHILS # 1.9 10^3/uL (1.5-8.5); NEUTROPHILS % 56.4 % (36.0-66.0); PLATELET COUNT, AUTOMATED 100 10^3/uL (150-450); RED BLOOD COUNT 3.71 10^6/uL (4.00-5.40); WHITE BLOOD COUNT 3.3 10^3/uL (4.0-10.0)
[2021-05-21 06:59] LABS: BLOOD UREA NITROGEN 18 MG/DL (7-18); CALCIUM LEVEL 9.9 MG/DL (8.8-10.2); CARBON DIOXIDE LEVEL 23 MEQ/L (21-32); CHLORIDE LEVEL 110 MEQ/L (98-107); CREATININE FOR GFR 0.84 MG/DL (0.55-1.30); GLOMERULAR FILTRATION RATE > 60.0 (>45); GLUCOSE, FASTING 79 MG/DL (70-100); POTASSIUM SERUM 5.6 MEQ/L (3.5-5.1); SODIUM LEVEL 139 MEQ/L (136-145)
[2021-05-21] MEDS: DIGOXIN 0.125 MG TAB PO SCH ×2 (09:00→09:38)
[2021-05-21] MEDS: bisoproloL fumarate 5 MG TAB PO SCH ×2 (09:35→21:00)
[2021-05-21] MEDS: AUGMENTIN 875 MG TAB PO SCH ×2 (09:35→22:14)
[2021-05-21] MEDS: SODIUM BICARBONATE 325 MG TAB PO SCH ×4 (09:35→22:14)
[2021-05-21] MEDS: LACTOBACILLUS ACIDOPHILUS CAP (BACID) PO SCH ×4 (09:35→22:14)
[2021-05-21] MEDS: ASPIRIN 81 MG CHEW TABLET PO SCH (09:35)
[2021-05-21] MEDS: SUCRALFATE SUSP 1GM/10ML UD PO SCH ×2 (09:35→22:14)
[2021-05-21] MEDS: MULTIVITAMINS/MINERALS THERAP 1 TAB PO SCH (09:36)
[2021-05-21] MEDS: FLECAINIDE 50MG TABLET PO SCH ×2 (09:36→22:16)
[2021-05-21] MEDS: buPROPion **XL** TABLET 150MG (WELLBUTRIN XL) PO SCH (09:37)
[2021-05-21] MEDS: FAMOTIDINE 20 MG TAB PO SCH ×2 (09:37→22:16)
[2021-05-21] MEDS: APIXABAN 5 MG TAB (ELIQUIS) PO SCH ×2 (09:37→22:16)
[2021-05-21] MEDS: PERCOCET 5MG/325MG TAB PO PRN ×2 (09:37→22:19)
[2021-05-21] MEDS: NYSTATIN 100,000 UNITS/GM TOPICAL PWD 15 GM TOP SCH ×3 (09:39→22:20)
[2021-05-21] MEDS: CAPSAICIN 0.025% CR 60 GM TOP SCH ×3 (09:39→22:19)
[2021-05-21] MEDS ORDERED: SOD POLYSTYRENE SULFONATE SUSP 15 GM/60 ML UD PO ONE (10:00)
[2021-05-21 14:00] VITALS: BP 138/60
[2021-05-21 20:25] VITALS: BP 105/72
[2021-05-21] MEDS: amLODIPine 5 MG TAB PO SCH (21:00)
[2021-05-21] MEDS: ATORVASTATIN 20 MG TAB PO SCH (22:16)
[2021-05-22 06:00] VITALS: BP 111/78
[2021-05-22 06:07] LABS: HEMATOCRIT 33.5 % (36.0-47.0); HEMOGLOBIN 10.4 g/dl (12.0-15.5); MEAN CORPUSCULAR HEMOGLOBIN 30.8 pg (27.0-33.0); MEAN CORPUSCULAR VOLUME 99.1 fl (80.0-96.0); PLATELET COUNT, AUTOMATED 123 10^3/uL (150-450); RED BLOOD COUNT 3.38 10^6/uL (4.00-5.40); WHITE BLOOD COUNT 3.3 10^3/uL (4.0-10.0)
[2021-05-22 06:21] LABS: BLOOD UREA NITROGEN 18 MG/DL (7-18); CALCIUM LEVEL 9.5 MG/DL (8.8-10.2); CARBON DIOXIDE LEVEL 25 MEQ/L (21-32); CHLORIDE LEVEL 109 MEQ/L (98-107); GLOMERULAR FILTRATION RATE > 60.0 (>45); GLUCOSE, FASTING 89 MG/DL (70-100); POTASSIUM SERUM 4.1 MEQ/L (3.5-5.1); SODIUM LEVEL 142 MEQ/L (136-145)
[2021-05-22 07:05] LABS: ANISOCYTOSIS 1+; ATYPICAL LYMPH 2 % (0-5); EOSINOPHILS 3 % (0-3); LYMPHOCYTES 27 % (16-44); MONOCYTES 10 % (0-5); NEUTROPHILS 58 % (28-66); PLATELET ESTIMATE DECREASED (NORMAL)
[2021-05-22] MEDS: MULTIVITAMINS/MINERALS THERAP 1 TAB PO SCH (08:23)
[2021-05-22] MEDS: SODIUM BICARBONATE 325 MG TAB PO SCH ×4 (08:23→20:51)
[2021-05-22] MEDS: LACTOBACILLUS ACIDOPHILUS CAP (BACID) PO SCH ×4 (08:24→20:51)
[2021-05-22] MEDS: FLECAINIDE 50MG TABLET PO SCH ×2 (08:24→20:49)
[2021-05-22] MEDS: ASPIRIN 81 MG CHEW TABLET PO SCH (08:24)
[2021-05-22] MEDS: buPROPion **XL** TABLET 150MG (WELLBUTRIN XL) PO SCH (08:24)
[2021-05-22] MEDS: bisoproloL fumarate 5 MG TAB PO SCH ×2 (08:24→20:50)
[2021-05-22] MEDS: SUCRALFATE SUSP 1GM/10ML UD PO SCH ×2 (08:24→20:51)
[2021-05-22] MEDS: PERCOCET 5MG/325MG TAB PO PRN ×2 (08:25→20:49)
[2021-05-22] MEDS: APIXABAN 5 MG TAB (ELIQUIS) PO SCH ×2 (08:25→20:50)
[2021-05-22] MEDS: DIGOXIN 0.125 MG TAB PO SCH (08:26)
[2021-05-22] MEDS: amLODIPine 5 MG TAB PO SCH ×2 (08:26→20:50)
[2021-05-22] MEDS: FAMOTIDINE 20 MG TAB PO SCH ×2 (08:27→20:51)
[2021-05-22] MEDS: NYSTATIN 100,000 UNITS/GM TOPICAL PWD 15 GM TOP SCH ×3 (08:28→20:52)
[2021-05-22] MEDS: CAPSAICIN 0.025% CR 60 GM TOP SCH ×3 (08:28→20:51)
[2021-05-22] MEDS: ATORVASTATIN 20 MG TAB PO SCH (20:52)
[2021-05-22 22:00] VITALS: BP 158/89
[2021-05-23 08:04] LABS: BASO % 0.6 % (0.0-1.0); EOS # 0.1 10^3/uL (0.0-0.5); EOS % 2.4 % (0.0-3.0); HEMATOCRIT 36.2 % (36.0-47.0); HEMOGLOBIN 11.2 g/dl (12.0-15.5); LYMPH # 0.8 10^3/uL (1.5-5.0); LYMPH % 24.1 % (24.0-44.0); MEAN CORPUSCULAR HEMOGLOBIN 30.4 pg (27.0-33.0); MEAN CORPUSCULAR HGB CONC 30.9 g/dl (32.0-36.5); MEAN CORPUSCULAR VOLUME 98.1 fl (80.0-96.0); MONO # 0.3 10^3/uL (0.0-0.8); NEUTROPHILS # 2.1 10^3/uL (1.5-8.5); NEUTROPHILS % 62.6 % (36.0-66.0); PLATELET COUNT, AUTOMATED 148 10^3/uL (150-450); RED BLOOD COUNT 3.69 10^6/uL (4.00-5.40); WHITE BLOOD COUNT 3.4 10^3/uL (4.0-10.0)
[2021-05-23] MEDS: FAMOTIDINE 20 MG TAB PO SCH ×2 (08:15→20:50)
[2021-05-23] MEDS: amLODIPine 5 MG TAB PO SCH ×2 (08:15→20:50)
[2021-05-23] MEDS: FLECAINIDE 50MG TABLET PO SCH ×2 (08:15→20:47)
[2021-05-23] MEDS: SODIUM BICARBONATE 325 MG TAB PO SCH ×4 (08:15→20:48)
[2021-05-23] MEDS: LACTOBACILLUS ACIDOPHILUS CAP (BACID) PO SCH ×4 (08:15→20:47)
[2021-05-23] MEDS: APIXABAN 5 MG TAB (ELIQUIS) PO SCH ×2 (08:15→20:50)
[2021-05-23] MEDS: SUCRALFATE SUSP 1GM/10ML UD PO SCH ×2 (08:16→20:47)
[2021-05-23] MEDS: buPROPion **XL** TABLET 150MG (WELLBUTRIN XL) PO SCH (08:16)
[2021-05-23] MEDS: bisoproloL fumarate 5 MG TAB PO SCH ×2 (08:16→20:53)
[2021-05-23] MEDS: MULTIVITAMINS/MINERALS THERAP 1 TAB PO SCH (08:16)
[2021-05-23] MEDS: ASPIRIN 81 MG CHEW TABLET PO SCH (08:16)
[2021-05-23] MEDS: PERCOCET 5MG/325MG TAB PO PRN ×2 (08:17→15:46)
[2021-05-23] MEDS: NYSTATIN 100,000 UNITS/GM TOPICAL PWD 15 GM TOP SCH ×3 (08:17→20:51)
[2021-05-23] MEDS: DIGOXIN 0.125 MG TAB PO SCH (08:17)
[2021-05-23] MEDS: CAPSAICIN 0.025% CR 60 GM TOP SCH ×3 (08:18→20:51)
[2021-05-23 08:24] LABS: BLOOD UREA NITROGEN 16 MG/DL (7-18); CALCIUM LEVEL 10.1 MG/DL (8.8-10.2); CARBON DIOXIDE LEVEL 24 MEQ/L (21-32); CHLORIDE LEVEL 106 MEQ/L (98-107); CREATININE FOR GFR 0.73 MG/DL (0.55-1.30); GLOMERULAR FILTRATION RATE > 60.0 (>45); GLUCOSE, FASTING 94 MG/DL (70-100); SODIUM LEVEL 140 MEQ/L (136-145)
[2021-05-23] MEDS: ACETAMINOPHEN TAB 650MG DOSE (2X325MG) PO PRN (20:49)
[2021-05-23] MEDS: ATORVASTATIN 20 MG TAB PO SCH (20:50)
[2021-05-24] MEDS: PERCOCET 5MG/325MG TAB PO PRN ×2 (06:40→21:06)
[2021-05-24] MEDS: SUCRALFATE SUSP 1GM/10ML UD PO SCH ×2 (09:17→21:06)
[2021-05-24] MEDS: bisoproloL fumarate 5 MG TAB PO SCH ×2 (09:18→21:07)
[2021-05-24] MEDS: APIXABAN 5 MG TAB (ELIQUIS) PO SCH ×2 (09:18→21:07)
[2021-05-24] MEDS: LACTOBACILLUS ACIDOPHILUS CAP (BACID) PO SCH ×4 (09:18→21:07)
[2021-05-24] MEDS: SODIUM BICARBONATE 325 MG TAB PO SCH ×4 (09:18→21:07)
[2021-05-24] MEDS: MULTIVITAMINS/MINERALS THERAP 1 TAB PO SCH (09:18)
[2021-05-24] MEDS: DIGOXIN 0.125 MG TAB PO SCH (09:18)
[2021-05-24] MEDS: FAMOTIDINE 20 MG TAB PO SCH ×2 (09:18→21:07)
[2021-05-24] MEDS: NYSTATIN 100,000 UNITS/GM TOPICAL PWD 15 GM TOP SCH ×3 (09:19→21:08)
[2021-05-24] MEDS: amLODIPine 5 MG TAB PO SCH ×2 (09:19→21:07)
[2021-05-24] MEDS: ASPIRIN 81 MG CHEW TABLET PO SCH (09:19)
[2021-05-24] MEDS: buPROPion **XL** TABLET 150MG (WELLBUTRIN XL) PO SCH (09:19)
[2021-05-24] MEDS: CAPSAICIN 0.025% CR 60 GM TOP SCH ×3 (09:20→21:08)
[2021-05-24] MEDS: FLECAINIDE 50MG TABLET PO SCH ×2 (09:23→21:07)
[2021-05-24 16:21] VITALS: BP 161/83
[2021-05-24] MEDS: ATORVASTATIN 20 MG TAB PO SCH (21:07)
[2021-05-25] MEDS: bisoproloL fumarate 5 MG TAB PO SCH ×2 (09:00→19:45)
[2021-05-25] MEDS: DIGOXIN 0.125 MG TAB PO SCH (09:00)
[2021-05-25 09:50] VITALS: BP 127/51
[2021-05-25] MEDS: FAMOTIDINE 20 MG TAB PO SCH ×2 (09:52→19:44)
[2021-05-25] MEDS: buPROPion **XL** TABLET 150MG (WELLBUTRIN XL) PO SCH (09:53)
[2021-05-25] MEDS: ASPIRIN 81 MG CHEW TABLET PO SCH (09:54)
[2021-05-25] MEDS: SUCRALFATE SUSP 1GM/10ML UD PO SCH ×2 (09:54→19:43)
[2021-05-25] MEDS: LACTOBACILLUS ACIDOPHILUS CAP (BACID) PO SCH ×4 (09:54→19:44)
[2021-05-25] MEDS: SODIUM BICARBONATE 325 MG TAB PO SCH ×4 (09:54→19:44)
[2021-05-25] MEDS: MULTIVITAMINS/MINERALS THERAP 1 TAB PO SCH (09:54)
[2021-05-25] MEDS: APIXABAN 5 MG TAB (ELIQUIS) PO SCH ×2 (09:54→19:44)
[2021-05-25] MEDS: amLODIPine 5 MG TAB PO SCH ×2 (09:54→19:45)
[2021-05-25] MEDS: FLECAINIDE 50MG TABLET PO SCH ×2 (09:55→19:44)
[2021-05-25] MEDS: CAPSAICIN 0.025% CR 60 GM TOP SCH ×3 (09:55→19:46)
[2021-05-25] MEDS: NYSTATIN 100,000 UNITS/GM TOPICAL PWD 15 GM TOP SCH ×3 (09:55→19:46)
[2021-05-25] MEDS: ATORVASTATIN 20 MG TAB PO SCH (19:44)
[2021-05-25] MEDS: PERCOCET 5MG/325MG TAB PO PRN (19:47)
[2021-05-26 06:26] VITALS: BP 148/68
[2021-05-26] MEDS: DIGOXIN 0.125 MG TAB PO SCH (08:23)
[2021-05-26] MEDS: bisoproloL fumarate 5 MG TAB PO SCH ×2 (08:25→20:44)
[2021-05-26] MEDS: amLODIPine 5 MG TAB PO SCH ×2 (08:26→20:44)
[2021-05-26] MEDS: SUCRALFATE SUSP 1GM/10ML UD PO SCH ×2 (08:26→20:43)
[2021-05-26] MEDS: ASPIRIN 81 MG CHEW TABLET PO SCH (08:26)
[2021-05-26] MEDS: FLECAINIDE 50MG TABLET PO SCH ×2 (08:26→20:43)
[2021-05-26] MEDS: SODIUM BICARBONATE 325 MG TAB PO SCH ×4 (08:26→20:44)
[2021-05-26] MEDS: APIXABAN 5 MG TAB (ELIQUIS) PO SCH ×2 (08:26→20:43)
[2021-05-26] MEDS: MULTIVITAMINS/MINERALS THERAP 1 TAB PO SCH (08:26)
[2021-05-26] MEDS: buPROPion **XL** TABLET 150MG (WELLBUTRIN XL) PO SCH (08:26)
[2021-05-26] MEDS: LACTOBACILLUS ACIDOPHILUS CAP (BACID) PO SCH ×4 (08:26→20:44)
[2021-05-26] MEDS: FAMOTIDINE 20 MG TAB PO SCH ×2 (08:27→20:45)
[2021-05-26] MEDS: NYSTATIN 100,000 UNITS/GM TOPICAL PWD 15 GM TOP SCH ×3 (08:27→20:46)
[2021-05-26] MEDS: CAPSAICIN 0.025% CR 60 GM TOP SCH ×3 (08:27→20:45)
[2021-05-26] MEDS ORDERED: QUEtiapine FUMARATE 25 MG TAB PO ONE (17:40)
[2021-05-26] MEDS: ATORVASTATIN 20 MG TAB PO SCH (20:43)
[2021-05-26] MEDS: ACETAMINOPHEN TAB 650MG DOSE (2X325MG) PO PRN (20:44)
[2021-05-27] MEDS ORDERED: OLANZapine INTRAMUSCULAR 10MG VIAL IM ONE (07:00)
[2021-05-27] MEDS: bisoproloL fumarate 5 MG TAB PO SCH ×2 (09:00→21:11)
[2021-05-27] MEDS: DIGOXIN 0.125 MG TAB PO SCH (09:00)
[2021-05-27] MEDS: FLECAINIDE 50MG TABLET PO SCH ×2 (10:46→21:09)
[2021-05-27] MEDS: ASPIRIN 81 MG CHEW TABLET PO SCH (10:46)
[2021-05-27] MEDS: ACETAMINOPHEN TAB 650MG DOSE (2X325MG) PO PRN ×2 (10:47→16:59)
[2021-05-27] MEDS: APIXABAN 5 MG TAB (ELIQUIS) PO SCH ×2 (10:47→21:11)
[2021-05-27] MEDS: MULTIVITAMINS/MINERALS THERAP 1 TAB PO SCH (10:47)
[2021-05-27] MEDS: SUCRALFATE SUSP 1GM/10ML UD PO SCH ×2 (10:47→21:11)
[2021-05-27] MEDS: LACTOBACILLUS ACIDOPHILUS CAP (BACID) PO SCH ×4 (10:47→21:11)
[2021-05-27] MEDS: SODIUM BICARBONATE 325 MG TAB PO SCH ×4 (10:47→21:09)
[2021-05-27] MEDS: buPROPion **XL** TABLET 150MG (WELLBUTRIN XL) PO SCH (10:48)
[2021-05-27] MEDS: amLODIPine 5 MG TAB PO SCH ×2 (10:48→21:10)
[2021-05-27] MEDS: NYSTATIN 100,000 UNITS/GM TOPICAL PWD 15 GM TOP SCH ×3 (10:48→21:11)
[2021-05-27] MEDS: FAMOTIDINE 20 MG TAB PO SCH ×2 (10:48→21:11)
[2021-05-27] MEDS: CAPSAICIN 0.025% CR 60 GM TOP SCH ×3 (10:49→21:12)
[2021-05-27] MEDS: QUEtiapine FUMARATE 25 MG TAB PO SCH (14:55)
[2021-05-27] MEDS: PERCOCET 5MG/325MG TAB PO PRN (21:10)
[2021-05-27] MEDS: ATORVASTATIN 20 MG TAB PO SCH (21:11)
[2021-05-28] MEDS: DIGOXIN 0.125 MG TAB PO SCH (09:00)
[2021-05-28] MEDS: LACTOBACILLUS ACIDOPHILUS CAP (BACID) PO SCH ×4 (09:40→22:26)
[2021-05-28] MEDS: SODIUM BICARBONATE 325 MG TAB PO SCH ×4 (09:40→22:22)
[2021-05-28] MEDS: ASPIRIN 81 MG CHEW TABLET PO SCH (09:40)
[2021-05-28] MEDS: bisoproloL fumarate 5 MG TAB PO SCH ×2 (09:40→22:26)
[2021-05-28] MEDS: MULTIVITAMINS/MINERALS THERAP 1 TAB PO SCH (09:40)
[2021-05-28] MEDS: FLECAINIDE 50MG TABLET PO SCH ×2 (09:41→22:22)
[2021-05-28] MEDS: APIXABAN 5 MG TAB (ELIQUIS) PO SCH ×2 (09:41→22:25)
[2021-05-28] MEDS: PERCOCET 5MG/325MG TAB PO PRN ×3 (09:42→22:26)
[2021-05-28] MEDS: amLODIPine 5 MG TAB PO SCH ×2 (09:43→22:25)
[2021-05-28] MEDS: FAMOTIDINE 20 MG TAB PO SCH ×2 (09:44→22:26)
[2021-05-28] MEDS: NYSTATIN 100,000 UNITS/GM TOPICAL PWD 15 GM TOP SCH ×3 (09:45→22:27)
[2021-05-28] MEDS: SUCRALFATE SUSP 1GM/10ML UD PO SCH ×2 (09:45→22:22)
[2021-05-28] MEDS: CAPSAICIN 0.025% CR 60 GM TOP SCH ×3 (09:45→22:27)
[2021-05-28] MEDS: buPROPion **XL** TABLET 150MG (WELLBUTRIN XL) PO SCH (09:46)
[2021-05-28] MEDS: QUEtiapine FUMARATE 25 MG TAB PO SCH (17:41)
[2021-05-28] MEDS: ATORVASTATIN 20 MG TAB PO SCH (22:26)
[2021-05-29 05:58] VITALS: BP 148/72
[2021-05-29] MEDS: buPROPion **XL** TABLET 150MG (WELLBUTRIN XL) PO SCH (08:18)
[2021-05-29] MEDS: PERCOCET 5MG/325MG TAB PO PRN ×3 (08:19→20:34)
[2021-05-29] MEDS: ASPIRIN 81 MG CHEW TABLET PO SCH (08:19)
[2021-05-29] MEDS: FLECAINIDE 50MG TABLET PO SCH ×2 (08:19→20:34)
[2021-05-29] MEDS: LACTOBACILLUS ACIDOPHILUS CAP (BACID) PO SCH ×4 (08:19→20:51)
[2021-05-29] MEDS: APIXABAN 5 MG TAB (ELIQUIS) PO SCH ×2 (08:20→20:35)
[2021-05-29] MEDS: amLODIPine 5 MG TAB PO SCH ×2 (08:20→20:35)
[2021-05-29] MEDS: bisoproloL fumarate 5 MG TAB PO SCH ×2 (08:20→20:33)
[2021-05-29] MEDS: FAMOTIDINE 20 MG TAB PO SCH ×2 (08:21→20:34)
[2021-05-29] MEDS: DIGOXIN 0.125 MG TAB PO SCH (08:21)
[2021-05-29] MEDS: SUCRALFATE SUSP 1GM/10ML UD PO SCH ×2 (08:24→20:31)
[2021-05-29] MEDS: NYSTATIN 100,000 UNITS/GM TOPICAL PWD 15 GM TOP SCH ×3 (08:24→20:35)
[2021-05-29] MEDS: MULTIVITAMINS/MINERALS THERAP 1 TAB PO SCH (08:24)
[2021-05-29] MEDS: CAPSAICIN 0.025% CR 60 GM TOP SCH ×3 (08:24→20:36)
[2021-05-29] MEDS: SODIUM BICARBONATE 325 MG TAB PO SCH ×4 (08:24→20:31)
[2021-05-29] MEDS: QUEtiapine FUMARATE 25 MG TAB PO SCH (17:14)
[2021-05-29] MEDS: ATORVASTATIN 20 MG TAB PO SCH (20:35)
[2021-05-29] MEDS ORDERED: RAMELTEON 8 MG TAB (ROZEREM) PO PRN (20:40)
[2021-05-30] MEDS ORDERED: RAMELTEON 8 MG TAB (ROZEREM) PO ONE (01:00)
[2021-05-30 05:29] VITALS: BP 161/75
[2021-05-30] MEDS ORDERED: diphenhydrAMINE 50MG/ML VIAL (J1200) IV PRN (05:55)
[2021-05-30] MEDS: amLODIPine 5 MG TAB PO SCH ×2 (06:32→21:42)
[2021-05-30] MEDS: LACTOBACILLUS ACIDOPHILUS CAP (BACID) PO SCH ×4 (08:00→21:43)
[2021-05-30] MEDS: SODIUM BICARBONATE 325 MG TAB PO SCH ×4 (09:00→21:48)
[2021-05-30] MEDS: NYSTATIN 100,000 UNITS/GM TOPICAL PWD 15 GM TOP SCH ×3 (09:00→21:44)
[2021-05-30] MEDS: CAPSAICIN 0.025% CR 60 GM TOP SCH ×3 (09:00→21:45)
[2021-05-30] MEDS: SUCRALFATE SUSP 1GM/10ML UD PO SCH ×2 (12:25→21:42)
[2021-05-30] MEDS: ASPIRIN 81 MG CHEW TABLET PO SCH (12:25)
[2021-05-30] MEDS: buPROPion **XL** TABLET 150MG (WELLBUTRIN XL) PO SCH (12:28)
[2021-05-30] MEDS: FLECAINIDE 50MG TABLET PO SCH ×2 (12:28→21:43)
[2021-05-30] MEDS: MULTIVITAMINS/MINERALS THERAP 1 TAB PO SCH (12:28)
[2021-05-30] MEDS: DIGOXIN 0.125 MG TAB PO SCH (12:29)
[2021-05-30] MEDS: bisoproloL fumarate 5 MG TAB PO SCH ×2 (12:29→21:44)
[2021-05-30] MEDS: FAMOTIDINE 20 MG TAB PO SCH ×2 (12:30→21:44)
[2021-05-30] MEDS: APIXABAN 5 MG TAB (ELIQUIS) PO SCH ×2 (12:30→21:43)
[2021-05-30] MEDS: QUEtiapine FUMARATE 25 MG TAB PO SCH (17:50)
[2021-05-30] MEDS: ATORVASTATIN 20 MG TAB PO SCH (21:43)
[2021-05-30] MEDS: PERCOCET 5MG/325MG TAB PO PRN (21:43)
[2021-05-31 06:00] VITALS: BP 135/77
[2021-05-31 08:10] LABS: BASO % 0.7 % (0.0-1.0); EOS # 0.1 10^3/uL (0.0-0.5); EOS % 2.7 % (0.0-3.0); HEMATOCRIT 33.6 % (36.0-47.0); HEMOGLOBIN 10.6 g/dl (12.0-15.5); LYMPH # 0.9 10^3/uL (1.5-5.0); LYMPH % 20.5 % (24.0-44.0); MEAN CORPUSCULAR HEMOGLOBIN 30.7 pg (27.0-33.0); MEAN CORPUSCULAR HGB CONC 31.5 g/dl (32.0-36.5); MEAN CORPUSCULAR VOLUME 97.4 fl (80.0-96.0); MONO # 0.4 10^3/uL (0.0-0.8); MONO % 8.9 % (2.0-8.0); NEUTROPHILS # 2.8 10^3/uL (1.5-8.5); PLATELET COUNT, AUTOMATED 194 10^3/uL (150-450); RED BLOOD COUNT 3.45 10^6/uL (4.00-5.40); WHITE BLOOD COUNT 4.2 10^3/uL (4.0-10.0)
[2021-05-31 08:31] LABS: BLOOD UREA NITROGEN 22 MG/DL (7-18); CALCIUM LEVEL 10.5 MG/DL (8.8-10.2); CARBON DIOXIDE LEVEL 28 MEQ/L (21-32); CHLORIDE LEVEL 108 MEQ/L (98-107); CREATININE FOR GFR 0.81 MG/DL (0.55-1.30); GLOMERULAR FILTRATION RATE > 60.0 (>45); GLUCOSE, FASTING 100 MG/DL (70-100); POTASSIUM SERUM 4.1 MEQ/L (3.5-5.1); SODIUM LEVEL 142 MEQ/L (136-145)
[2021-05-31] MEDS: bisoproloL fumarate 5 MG TAB PO SCH ×2 (09:00→21:39)
[2021-05-31] MEDS: DIGOXIN 0.125 MG TAB PO SCH (09:00)
[2021-05-31] MEDS: SUCRALFATE SUSP 1GM/10ML UD PO SCH ×2 (09:07→21:40)
[2021-05-31] MEDS: APIXABAN 5 MG TAB (ELIQUIS) PO SCH ×2 (09:08→21:39)
[2021-05-31] MEDS: SODIUM BICARBONATE 325 MG TAB PO SCH ×4 (09:08→21:39)
[2021-05-31] MEDS: buPROPion **XL** TABLET 150MG (WELLBUTRIN XL) PO SCH (09:08)
[2021-05-31] MEDS: ASPIRIN 81 MG CHEW TABLET PO SCH (09:08)
[2021-05-31] MEDS: FAMOTIDINE 20 MG TAB PO SCH ×2 (09:08→21:39)
[2021-05-31] MEDS: FLECAINIDE 50MG TABLET PO SCH ×2 (09:08→21:39)
[2021-05-31] MEDS: MULTIVITAMINS/MINERALS THERAP 1 TAB PO SCH (09:08)
[2021-05-31] MEDS: LACTOBACILLUS ACIDOPHILUS CAP (BACID) PO SCH ×4 (09:08→21:39)
[2021-05-31] MEDS: NYSTATIN 100,000 UNITS/GM TOPICAL PWD 15 GM TOP SCH ×3 (09:10→21:40)
[2021-05-31] MEDS: amLODIPine 5 MG TAB PO SCH ×2 (09:10→21:40)
[2021-05-31] MEDS: CAPSAICIN 0.025% CR 60 GM TOP SCH ×3 (09:11→21:41)
[2021-05-31] MEDS ORDERED: QUEtiapine FUMARATE 25 MG TAB PO ONE (14:25)
[2021-05-31] MEDS: QUEtiapine FUMARATE 25 MG TAB PO SCH (15:49)
[2021-05-31] MEDS: ACETAMINOPHEN TAB 650MG DOSE (2X325MG) PO PRN (18:14)
[2021-05-31] MEDS: PERCOCET 5MG/325MG TAB PO PRN (21:38)
[2021-05-31] MEDS: ATORVASTATIN 20 MG TAB PO SCH (21:39)
[2021-06-01 06:00] VITALS: BP 147/75
[2021-06-01] MEDS: APIXABAN 5 MG TAB (ELIQUIS) PO SCH ×2 (08:31→21:47)
[2021-06-01] MEDS: SUCRALFATE SUSP 1GM/10ML UD PO SCH ×2 (08:31→21:42)
[2021-06-01] MEDS: buPROPion **XL** TABLET 150MG (WELLBUTRIN XL) PO SCH (08:31)
[2021-06-01] MEDS: LACTOBACILLUS ACIDOPHILUS CAP (BACID) PO SCH ×4 (08:32→21:42)
[2021-06-01] MEDS: SODIUM BICARBONATE 325 MG TAB PO SCH ×4 (08:32→21:44)
[2021-06-01] MEDS: MULTIVITAMINS/MINERALS THERAP 1 TAB PO SCH (08:32)
[2021-06-01] MEDS: ASPIRIN 81 MG CHEW TABLET PO SCH (08:32)
[2021-06-01] MEDS: bisoproloL fumarate 5 MG TAB PO SCH ×2 (08:32→21:44)
[2021-06-01] MEDS: DIGOXIN 0.125 MG TAB PO SCH (08:33)
[2021-06-01] MEDS: FAMOTIDINE 20 MG TAB PO SCH ×2 (08:33→21:42)
[2021-06-01] MEDS: FLECAINIDE 50MG TABLET PO SCH ×2 (08:33→21:42)
[2021-06-01] MEDS: amLODIPine 5 MG TAB PO SCH ×2 (08:33→21:43)
[2021-06-01] MEDS: NYSTATIN 100,000 UNITS/GM TOPICAL PWD 15 GM TOP SCH ×3 (08:34→21:42)
[2021-06-01] MEDS: PERCOCET 5MG/325MG TAB PO PRN ×3 (08:34→21:43)
[2021-06-01] MEDS: CAPSAICIN 0.025% CR 60 GM TOP SCH ×3 (08:34→21:42)
[2021-06-01] MEDS: QUEtiapine FUMARATE 25 MG TAB PO SCH (15:21)
[2021-06-01] MEDS: ACETAMINOPHEN TAB 650MG DOSE (2X325MG) PO PRN (15:22)
[2021-06-01] MEDS ORDERED: OLANZapine INTRAMUSCULAR 10MG VIAL IM PRN (16:00)
[2021-06-01] MEDS: ATORVASTATIN 20 MG TAB PO SCH (21:42)
[2021-06-02] MEDS: CAPSAICIN 0.025% CR 60 GM TOP SCH ×3 (10:20→21:10)
[2021-06-02] MEDS: DIGOXIN 0.125 MG TAB PO SCH (10:20)
[2021-06-02] MEDS: SUCRALFATE SUSP 1GM/10ML UD PO SCH ×2 (10:20→21:08)
[2021-06-02] MEDS: NYSTATIN 100,000 UNITS/GM TOPICAL PWD 15 GM TOP SCH ×3 (10:20→21:10)
[2021-06-02] MEDS: MULTIVITAMINS/MINERALS THERAP 1 TAB PO SCH (10:21)
[2021-06-02] MEDS: buPROPion **XL** TABLET 150MG (WELLBUTRIN XL) PO SCH (10:21)
[2021-06-02] MEDS: ASPIRIN 81 MG CHEW TABLET PO SCH (10:21)
[2021-06-02] MEDS: SODIUM BICARBONATE 325 MG TAB PO SCH ×4 (10:21→21:08)
[2021-06-02] MEDS: amLODIPine 5 MG TAB PO SCH ×2 (10:22→21:09)
[2021-06-02] MEDS: bisoproloL fumarate 5 MG TAB PO SCH ×2 (10:23→21:09)
[2021-06-02] MEDS: APIXABAN 5 MG TAB (ELIQUIS) PO SCH ×2 (10:23→21:08)
[2021-06-02] MEDS: FAMOTIDINE 20 MG TAB PO SCH ×2 (10:23→21:09)
[2021-06-02] MEDS: FLECAINIDE 50MG TABLET PO SCH ×2 (10:23→21:09)
[2021-06-02] MEDS: PERCOCET 5MG/325MG TAB PO PRN ×3 (10:24→21:10)
[2021-06-02] MEDS: LACTOBACILLUS ACIDOPHILUS CAP (BACID) PO SCH ×4 (10:44→21:08)
[2021-06-02] MEDS: QUEtiapine FUMARATE 25 MG TAB PO SCH (16:54)
[2021-06-02] MEDS: ATORVASTATIN 20 MG TAB PO SCH (21:08)
[2021-06-03] MEDS: SUCRALFATE SUSP 1GM/10ML UD PO SCH ×2 (09:08→21:07)
[2021-06-03] MEDS: buPROPion **XL** TABLET 150MG (WELLBUTRIN XL) PO SCH (09:09)
[2021-06-03] MEDS: FAMOTIDINE 20 MG TAB PO SCH ×2 (09:09→21:08)
[2021-06-03] MEDS: LACTOBACILLUS ACIDOPHILUS CAP (BACID) PO SCH ×4 (09:09→21:08)
[2021-06-03] MEDS: FLECAINIDE 50MG TABLET PO SCH ×2 (09:09→21:08)
[2021-06-03] MEDS: SODIUM BICARBONATE 325 MG TAB PO SCH ×4 (09:09→21:07)
[2021-06-03] MEDS: bisoproloL fumarate 5 MG TAB PO SCH ×2 (09:09→21:08)
[2021-06-03] MEDS: APIXABAN 5 MG TAB (ELIQUIS) PO SCH ×2 (09:13→21:08)
[2021-06-03] MEDS: DIGOXIN 0.125 MG TAB PO SCH (09:14)
[2021-06-03] MEDS: PERCOCET 5MG/325MG TAB PO PRN ×3 (09:14→21:09)
[2021-06-03] MEDS: MULTIVITAMINS/MINERALS THERAP 1 TAB PO SCH (09:14)
[2021-06-03] MEDS: amLODIPine 5 MG TAB PO SCH ×2 (09:14→21:08)
[2021-06-03] MEDS: ASPIRIN 81 MG CHEW TABLET PO SCH (09:14)
[2021-06-03] MEDS: NYSTATIN 100,000 UNITS/GM TOPICAL PWD 15 GM TOP SCH ×3 (09:15→21:09)
[2021-06-03] MEDS: CAPSAICIN 0.025% CR 60 GM TOP SCH ×3 (09:15→21:09)
[2021-06-03] MEDS: QUEtiapine FUMARATE 25 MG TAB PO SCH (17:31)
[2021-06-03] MEDS: ATORVASTATIN 20 MG TAB PO SCH (21:08)
[2021-06-04] MEDS: LACTOBACILLUS ACIDOPHILUS CAP (BACID) PO SCH ×4 (08:58→20:52)
[2021-06-04] MEDS: MULTIVITAMINS/MINERALS THERAP 1 TAB PO SCH (08:58)
[2021-06-04] MEDS: SUCRALFATE SUSP 1GM/10ML UD PO SCH ×2 (08:58→20:53)
[2021-06-04] MEDS: buPROPion **XL** TABLET 150MG (WELLBUTRIN XL) PO SCH (08:59)
[2021-06-04] MEDS: SODIUM BICARBONATE 325 MG TAB PO SCH ×4 (08:59→20:53)
[2021-06-04] MEDS: PERCOCET 5MG/325MG TAB PO PRN ×3 (08:59→20:53)
[2021-06-04] MEDS: ASPIRIN 81 MG CHEW TABLET PO SCH (08:59)
[2021-06-04] MEDS: DIGOXIN 0.125 MG TAB PO SCH (09:00)
[2021-06-04] MEDS: FAMOTIDINE 20 MG TAB PO SCH ×2 (09:00→20:53)
[2021-06-04] MEDS: bisoproloL fumarate 5 MG TAB PO SCH ×2 (09:00→20:52)
[2021-06-04] MEDS: FLECAINIDE 50MG TABLET PO SCH ×2 (09:00→20:53)
[2021-06-04] MEDS: APIXABAN 5 MG TAB (ELIQUIS) PO SCH ×2 (09:00→20:53)
[2021-06-04] MEDS: amLODIPine 5 MG TAB PO SCH ×2 (09:05→20:53)
[2021-06-04] MEDS: NYSTATIN 100,000 UNITS/GM TOPICAL PWD 15 GM TOP SCH ×3 (09:07→20:54)
[2021-06-04] MEDS: CAPSAICIN 0.025% CR 60 GM TOP SCH ×3 (09:08→20:54)
[2021-06-04] MEDS: QUEtiapine FUMARATE 25 MG TAB PO SCH (16:51)
[2021-06-04] MEDS: ATORVASTATIN 20 MG TAB PO SCH (20:53)
[2021-06-05] MEDS: LACTOBACILLUS ACIDOPHILUS CAP (BACID) PO SCH ×4 (08:08→21:20)
[2021-06-05] MEDS: SUCRALFATE SUSP 1GM/10ML UD PO SCH ×2 (08:08→21:20)
[2021-06-05] MEDS: ASPIRIN 81 MG CHEW TABLET PO SCH (08:08)
[2021-06-05] MEDS: amLODIPine 5 MG TAB PO SCH ×2 (08:11→21:00)
[2021-06-05] MEDS: FAMOTIDINE 20 MG TAB PO SCH ×2 (08:12→21:20)
[2021-06-05] MEDS: PERCOCET 5MG/325MG TAB PO PRN ×3 (08:12→21:20)
[2021-06-05] MEDS: buPROPion **XL** TABLET 150MG (WELLBUTRIN XL) PO SCH (08:12)
[2021-06-05] MEDS: NYSTATIN 100,000 UNITS/GM TOPICAL PWD 15 GM TOP SCH ×3 (08:13→21:22)
[2021-06-05] MEDS: bisoproloL fumarate 5 MG TAB PO SCH ×2 (08:13→21:00)
[2021-06-05] MEDS: APIXABAN 5 MG TAB (ELIQUIS) PO SCH ×2 (08:14→21:20)
[2021-06-05] MEDS: CAPSAICIN 0.025% CR 60 GM TOP SCH ×3 (08:14→21:22)
[2021-06-05] MEDS: MULTIVITAMINS/MINERALS THERAP 1 TAB PO SCH (08:14)
[2021-06-05] MEDS: DIGOXIN 0.125 MG TAB PO SCH (08:15)
[2021-06-05] MEDS: SODIUM BICARBONATE 325 MG TAB PO SCH ×4 (08:15→21:21)
[2021-06-05] MEDS: FLECAINIDE 50MG TABLET PO SCH ×2 (08:15→21:20)
[2021-06-05 08:16] VITALS: BP 146/67
[2021-06-05] MEDS: ACETAMINOPHEN TAB 650MG DOSE (2X325MG) PO PRN (12:46)
[2021-06-05] MEDS: QUEtiapine FUMARATE 25 MG TAB PO SCH (15:39)
[2021-06-05] MEDS: ATORVASTATIN 20 MG TAB PO SCH (21:20)
[2021-06-06 06:00] VITALS: BP 140/74
[2021-06-06] MEDS: PERCOCET 5MG/325MG TAB PO PRN ×3 (06:17→21:15)
[2021-06-06] MEDS: APIXABAN 5 MG TAB (ELIQUIS) PO SCH ×2 (08:39→21:15)
[2021-06-06] MEDS: buPROPion **XL** TABLET 150MG (WELLBUTRIN XL) PO SCH (08:39)
[2021-06-06] MEDS: SUCRALFATE SUSP 1GM/10ML UD PO SCH ×2 (08:39→21:14)
[2021-06-06] MEDS: MULTIVITAMINS/MINERALS THERAP 1 TAB PO SCH (08:39)
[2021-06-06] MEDS: bisoproloL fumarate 5 MG TAB PO SCH ×2 (08:39→21:18)
[2021-06-06] MEDS: ASPIRIN 81 MG CHEW TABLET PO SCH (08:39)
[2021-06-06] MEDS: OLANZapine 5 MG TAB PO PRN ×3 (08:39→21:15)
[2021-06-06] MEDS: LACTOBACILLUS ACIDOPHILUS CAP (BACID) PO SCH ×4 (08:39→21:15)
[2021-06-06] MEDS: SODIUM BICARBONATE 325 MG TAB PO SCH ×4 (08:39→21:15)
[2021-06-06] MEDS: CAPSAICIN 0.025% CR 60 GM TOP SCH ×3 (08:39→21:17)
[2021-06-06] MEDS: FAMOTIDINE 20 MG TAB PO SCH ×2 (08:40→21:15)
[2021-06-06] MEDS: FLECAINIDE 50MG TABLET PO SCH ×2 (08:40→21:15)
[2021-06-06] MEDS: DIGOXIN 0.125 MG TAB PO SCH (08:40)
[2021-06-06] MEDS: amLODIPine 5 MG TAB PO SCH ×2 (08:40→21:18)
[2021-06-06] MEDS: NYSTATIN 100,000 UNITS/GM TOPICAL PWD 15 GM TOP SCH ×3 (08:41→21:18)
[2021-06-06] MEDS ORDERED: metOLazone 5 MG TAB PO ONE (11:30)
[2021-06-06] MEDS: FUROSEMIDE 40 MG TAB PO SCH (13:08)
[2021-06-06] MEDS: QUEtiapine FUMARATE 25 MG TAB PO SCH (15:25)
[2021-06-06] MEDS: ATORVASTATIN 20 MG TAB PO SCH (21:15)
[2021-06-07 06:00] VITALS: BP 133/77
[2021-06-07] MEDS: amLODIPine 5 MG TAB PO SCH ×2 (09:00→21:00)
[2021-06-07] MEDS: bisoproloL fumarate 5 MG TAB PO SCH ×2 (09:00→20:19)
[2021-06-07] MEDS: SODIUM BICARBONATE 325 MG TAB PO SCH ×4 (10:30→20:18)
[2021-06-07] MEDS: MULTIVITAMINS/MINERALS THERAP 1 TAB PO SCH (10:30)
[2021-06-07] MEDS: APIXABAN 5 MG TAB (ELIQUIS) PO SCH ×2 (10:30→20:20)
[2021-06-07] MEDS: SUCRALFATE SUSP 1GM/10ML UD PO SCH ×2 (10:30→20:18)
[2021-06-07] MEDS: buPROPion **XL** TABLET 150MG (WELLBUTRIN XL) PO SCH (10:30)
[2021-06-07] MEDS: FUROSEMIDE 40 MG TAB PO SCH (10:30)
[2021-06-07] MEDS: DIGOXIN 0.125 MG TAB PO SCH (10:31)
[2021-06-07] MEDS: LACTOBACILLUS ACIDOPHILUS CAP (BACID) PO SCH ×4 (10:32→20:19)
[2021-06-07] MEDS: ASPIRIN 81 MG CHEW TABLET PO SCH (10:32)
[2021-06-07] MEDS: FLECAINIDE 50MG TABLET PO SCH ×2 (10:32→20:20)
[2021-06-07] MEDS: FAMOTIDINE 20 MG TAB PO SCH ×2 (10:32→20:19)
[2021-06-07] MEDS: PERCOCET 5MG/325MG TAB PO PRN ×2 (10:33→16:59)
[2021-06-07] MEDS: NYSTATIN 100,000 UNITS/GM TOPICAL PWD 15 GM TOP SCH ×3 (10:34→21:00)
[2021-06-07] MEDS: CAPSAICIN 0.025% CR 60 GM TOP SCH ×3 (10:34→21:00)
[2021-06-07 13:08] LABS: BASO % 0.4 % (0.0-1.0); EOS # 0.1 10^3/uL (0.0-0.5); EOS % 1.9 % (0.0-3.0); HEMATOCRIT 34.9 % (36.0-47.0); HEMOGLOBIN 11.1 g/dl (12.0-15.5); LYMPH # 0.8 10^3/uL (1.5-5.0); LYMPH % 16.8 % (24.0-44.0); MEAN CORPUSCULAR HEMOGLOBIN 30.9 pg (27.0-33.0); MEAN CORPUSCULAR HGB CONC 31.8 g/dl (32.0-36.5); MEAN CORPUSCULAR VOLUME 97.2 fl (80.0-96.0); MONO # 0.5 10^3/uL (0.0-0.8); MONO % 10.1 % (2.0-8.0); NEUTROPHILS # 3.3 10^3/uL (1.5-8.5); NEUTROPHILS % 70.6 % (36.0-66.0); PLATELET COUNT, AUTOMATED 195 10^3/uL (150-450); RED BLOOD COUNT 3.59 10^6/uL (4.00-5.40); WHITE BLOOD COUNT 4.7 10^3/uL (4.0-10.0)
[2021-06-07 13:50] LABS: BLOOD UREA NITROGEN 13 MG/DL (7-18); CALCIUM LEVEL 10.9 MG/DL (8.8-10.2); CARBON DIOXIDE LEVEL 28 MEQ/L (21-32); CHLORIDE LEVEL 104 MEQ/L (98-107); CREATININE FOR GFR 0.73 MG/DL (0.55-1.30); GLOMERULAR FILTRATION RATE > 60.0 (>45); GLUCOSE, FASTING 93 MG/DL (70-100); POTASSIUM SERUM 3.7 MEQ/L (3.5-5.1); SODIUM LEVEL 140 MEQ/L (136-145); THYROID STIMULATING HORMONE 0.393 uIU/ML (0.358-3.740)
[2021-06-07] MEDS: OLANZapine 5 MG TAB PO PRN ×2 (14:05→20:19)
[2021-06-07] MEDS: QUEtiapine FUMARATE 25 MG TAB PO SCH (16:59)
[2021-06-07] MEDS: ATORVASTATIN 20 MG TAB PO SCH (20:19)
[2021-06-08] MEDS: PERCOCET 5MG/325MG TAB PO PRN ×2 (00:08→22:09)
[2021-06-08 06:00] VITALS: BP 144/76
[2021-06-08] MEDS: ASPIRIN 81 MG CHEW TABLET PO SCH (10:40)
[2021-06-08] MEDS: SUCRALFATE SUSP 1GM/10ML UD PO SCH ×2 (10:40→21:51)
[2021-06-08] MEDS: buPROPion **XL** TABLET 150MG (WELLBUTRIN XL) PO SCH (10:41)
[2021-06-08] MEDS: MULTIVITAMINS/MINERALS THERAP 1 TAB PO SCH (10:41)
[2021-06-08] MEDS: SODIUM BICARBONATE 325 MG TAB PO SCH ×4 (10:41→21:50)
[2021-06-08] MEDS: FAMOTIDINE 20 MG TAB PO SCH ×2 (10:42→21:50)
[2021-06-08] MEDS: FUROSEMIDE 40 MG TAB PO SCH (10:42)
[2021-06-08] MEDS: APIXABAN 5 MG TAB (ELIQUIS) PO SCH ×2 (10:43→21:50)
[2021-06-08] MEDS: amLODIPine 5 MG TAB PO SCH ×2 (10:48→21:50)
[2021-06-08] MEDS: LACTOBACILLUS ACIDOPHILUS CAP (BACID) PO SCH ×4 (10:49→21:50)
[2021-06-08] MEDS: bisoproloL fumarate 5 MG TAB PO SCH ×2 (10:49→21:49)
[2021-06-08] MEDS: DIGOXIN 0.125 MG TAB PO SCH (10:50)
[2021-06-08] MEDS: FLECAINIDE 50MG TABLET PO SCH ×2 (10:52→21:50)
[2021-06-08] MEDS: CAPSAICIN 0.025% CR 60 GM TOP SCH ×3 (10:58→21:51)
[2021-06-08] MEDS: NYSTATIN 100,000 UNITS/GM TOPICAL PWD 15 GM TOP SCH ×3 (11:00→21:00)
[2021-06-08] MEDS: QUEtiapine FUMARATE 25 MG TAB PO SCH (17:26)
[2021-06-08 20:30] VITALS: BP 148/77
[2021-06-08] MEDS: ATORVASTATIN 20 MG TAB PO SCH (21:50)
[2021-06-09 06:00] VITALS: BP 161/73
[2021-06-09] MEDS: LACTOBACILLUS ACIDOPHILUS CAP (BACID) PO SCH ×4 (08:49→21:35)
[2021-06-09] MEDS: bisoproloL fumarate 5 MG TAB PO SCH ×2 (08:49→21:36)
[2021-06-09] MEDS: SUCRALFATE SUSP 1GM/10ML UD PO SCH ×2 (08:49→21:35)
[2021-06-09] MEDS: buPROPion **XL** TABLET 150MG (WELLBUTRIN XL) PO SCH (08:49)
[2021-06-09] MEDS: MULTIVITAMINS/MINERALS THERAP 1 TAB PO SCH (08:49)
[2021-06-09] MEDS: ASPIRIN 81 MG CHEW TABLET PO SCH (08:49)
[2021-06-09] MEDS: DIGOXIN 0.125 MG TAB PO SCH (08:50)
[2021-06-09] MEDS: APIXABAN 5 MG TAB (ELIQUIS) PO SCH ×2 (08:50→21:36)
[2021-06-09] MEDS: amLODIPine 5 MG TAB PO SCH ×2 (08:50→21:37)
[2021-06-09] MEDS: SODIUM BICARBONATE 325 MG TAB PO SCH ×4 (08:50→21:35)
[2021-06-09] MEDS: FLECAINIDE 50MG TABLET PO SCH ×2 (08:50→21:36)
[2021-06-09] MEDS: FAMOTIDINE 20 MG TAB PO SCH ×2 (08:50→21:36)
[2021-06-09] MEDS: CAPSAICIN 0.025% CR 60 GM TOP SCH ×3 (08:51→21:37)
[2021-06-09] MEDS: NYSTATIN 100,000 UNITS/GM TOPICAL PWD 15 GM TOP SCH ×3 (08:51→21:37)
[2021-06-09] MEDS: FUROSEMIDE 40 MG TAB PO SCH (08:51)
[2021-06-09] MEDS: ACETAMINOPHEN TAB 650MG DOSE (2X325MG) PO PRN (09:26)
[2021-06-09] MEDS: QUEtiapine FUMARATE 25 MG TAB PO SCH (16:16)
[2021-06-09] MEDS: PERCOCET 5MG/325MG TAB PO PRN (21:36)
[2021-06-09] MEDS: OLANZapine 5 MG TAB PO PRN (21:36)
[2021-06-09] MEDS: ATORVASTATIN 20 MG TAB PO SCH (21:37)
[2021-06-10 05:30] VITALS: BP 106/59
[2021-06-10] MEDS: DIGOXIN 0.125 MG TAB PO SCH (09:00)
[2021-06-10] MEDS: amLODIPine 5 MG TAB PO SCH ×2 (09:00→21:39)
[2021-06-10] MEDS: bisoproloL fumarate 5 MG TAB PO SCH ×2 (09:00→21:39)
[2021-06-10] MEDS: SUCRALFATE SUSP 1GM/10ML UD PO SCH ×2 (09:00→21:39)
[2021-06-10] MEDS: MULTIVITAMINS/MINERALS THERAP 1 TAB PO SCH (10:26)
[2021-06-10] MEDS: ASPIRIN 81 MG CHEW TABLET PO SCH (10:27)
[2021-06-10] MEDS: APIXABAN 5 MG TAB (ELIQUIS) PO SCH ×2 (10:27→21:40)
[2021-06-10] MEDS: SODIUM BICARBONATE 325 MG TAB PO SCH ×4 (10:27→21:39)
[2021-06-10] MEDS: FUROSEMIDE 40 MG TAB PO SCH (10:28)
[2021-06-10] MEDS: FAMOTIDINE 20 MG TAB PO SCH ×2 (10:29→21:40)
[2021-06-10] MEDS: FLECAINIDE 50MG TABLET PO SCH ×2 (10:29→21:40)
[2021-06-10] MEDS: CAPSAICIN 0.025% CR 60 GM TOP SCH ×3 (10:30→21:42)
[2021-06-10] MEDS: NYSTATIN 100,000 UNITS/GM TOPICAL PWD 15 GM TOP SCH ×3 (10:30→21:42)
[2021-06-10] MEDS: buPROPion **XL** TABLET 150MG (WELLBUTRIN XL) PO SCH (10:30)
[2021-06-10] MEDS: LACTOBACILLUS ACIDOPHILUS CAP (BACID) PO SCH ×4 (10:41→21:39)
[2021-06-10] MEDS: QUEtiapine FUMARATE 25 MG TAB PO SCH (17:24)
[2021-06-10] MEDS: ATORVASTATIN 20 MG TAB PO SCH (21:39)
[2021-06-10] MEDS: OLANZapine 5 MG TAB PO PRN (21:40)
[2021-06-10] MEDS: PERCOCET 5MG/325MG TAB PO PRN (21:40)
[2021-06-11] MEDS ORDERED: metOLazone 5 MG TAB PO ONE (07:30)
[2021-06-11] MEDS: LACTOBACILLUS ACIDOPHILUS CAP (BACID) PO SCH ×4 (08:26→20:49)
[2021-06-11] MEDS: FLECAINIDE 50MG TABLET PO SCH ×2 (08:26→20:50)
[2021-06-11] MEDS: APIXABAN 5 MG TAB (ELIQUIS) PO SCH ×2 (08:26→20:49)
[2021-06-11] MEDS: SODIUM BICARBONATE 325 MG TAB PO SCH ×4 (08:26→20:49)
[2021-06-11] MEDS: bisoproloL fumarate 5 MG TAB PO SCH ×2 (08:27→20:49)
[2021-06-11] MEDS: amLODIPine 5 MG TAB PO SCH ×2 (08:27→20:49)
[2021-06-11] MEDS: ASPIRIN 81 MG CHEW TABLET PO SCH (08:27)
[2021-06-11] MEDS: FUROSEMIDE 40 MG TAB PO SCH (08:27)
[2021-06-11] MEDS: FAMOTIDINE 20 MG TAB PO SCH ×2 (08:28→20:48)
[2021-06-11] MEDS: buPROPion **XL** TABLET 150MG (WELLBUTRIN XL) PO SCH (08:28)
[2021-06-11] MEDS: MULTIVITAMINS/MINERALS THERAP 1 TAB PO SCH (08:28)
[2021-06-11] MEDS: SUCRALFATE SUSP 1GM/10ML UD PO SCH ×2 (08:28→20:48)
[2021-06-11] MEDS: DIGOXIN 0.125 MG TAB PO SCH (08:28)
[2021-06-11] MEDS: CAPSAICIN 0.025% CR 60 GM TOP SCH ×3 (09:31→20:50)
[2021-06-11] MEDS: NYSTATIN 100,000 UNITS/GM TOPICAL PWD 15 GM TOP SCH ×3 (09:31→20:48)
[2021-06-11] MEDS: QUEtiapine FUMARATE 25 MG TAB PO SCH (17:42)
[2021-06-11] MEDS: ATORVASTATIN 20 MG TAB PO SCH (20:49)
[2021-06-12 06:28] VITALS: BP 155/81
[2021-06-12] MEDS: amLODIPine 5 MG TAB PO SCH ×2 (09:00→19:51)
[2021-06-12] MEDS: buPROPion **XL** TABLET 150MG (WELLBUTRIN XL) PO SCH (09:21)
[2021-06-12] MEDS: SUCRALFATE SUSP 1GM/10ML UD PO SCH ×2 (09:21→19:51)
[2021-06-12] MEDS: SODIUM BICARBONATE 325 MG TAB PO SCH ×4 (09:21→19:49)
[2021-06-12] MEDS: LACTOBACILLUS ACIDOPHILUS CAP (BACID) PO SCH ×4 (09:21→19:51)
[2021-06-12] MEDS: FLECAINIDE 50MG TABLET PO SCH ×2 (09:21→19:51)
[2021-06-12] MEDS: ASPIRIN 81 MG CHEW TABLET PO SCH (09:21)
[2021-06-12] MEDS: MULTIVITAMINS/MINERALS THERAP 1 TAB PO SCH (09:21)
[2021-06-12] MEDS: APIXABAN 5 MG TAB (ELIQUIS) PO SCH ×2 (09:21→19:50)
[2021-06-12] MEDS: bisoproloL fumarate 5 MG TAB PO SCH ×2 (09:22→19:50)
[2021-06-12] MEDS: FUROSEMIDE 40 MG TAB PO SCH (09:22)
[2021-06-12] MEDS: DIGOXIN 0.125 MG TAB PO SCH (09:22)
[2021-06-12] MEDS: FAMOTIDINE 20 MG TAB PO SCH ×2 (09:22→19:50)
[2021-06-12] MEDS: CAPSAICIN 0.025% CR 60 GM TOP SCH ×3 (09:23→19:54)
[2021-06-12] MEDS: NYSTATIN 100,000 UNITS/GM TOPICAL PWD 15 GM TOP SCH ×3 (09:23→19:54)
[2021-06-12] MEDS: QUEtiapine FUMARATE 25 MG TAB PO SCH (16:26)
[2021-06-12] MEDS: PERCOCET 5MG/325MG TAB PO PRN (16:33)
[2021-06-12] MEDS: OLANZapine 5 MG TAB PO PRN (19:49)
[2021-06-12] MEDS: ATORVASTATIN 20 MG TAB PO SCH (19:51)
[2021-06-12] MEDS: ACETAMINOPHEN TAB 650MG DOSE (2X325MG) PO PRN (19:52)
[2021-06-13] MEDS: ACETAMINOPHEN TAB 650MG DOSE (2X325MG) PO PRN ×2 (03:22→14:35)
[2021-06-13 06:13] VITALS: BP 153/76
[2021-06-13] MEDS: ASPIRIN 81 MG CHEW TABLET PO SCH (09:51)
[2021-06-13] MEDS: LACTOBACILLUS ACIDOPHILUS CAP (BACID) PO SCH ×4 (09:51→22:13)
[2021-06-13] MEDS: SODIUM BICARBONATE 325 MG TAB PO SCH ×4 (09:51→22:13)
[2021-06-13] MEDS: MULTIVITAMINS/MINERALS THERAP 1 TAB PO SCH (09:51)
[2021-06-13] MEDS: FLECAINIDE 50MG TABLET PO SCH ×2 (09:51→22:14)
[2021-06-13] MEDS: amLODIPine 5 MG TAB PO SCH ×2 (09:52→22:15)
[2021-06-13] MEDS: bisoproloL fumarate 5 MG TAB PO SCH ×2 (09:52→22:15)
[2021-06-13] MEDS: APIXABAN 5 MG TAB (ELIQUIS) PO SCH ×2 (09:52→22:15)
[2021-06-13] MEDS: PERCOCET 5MG/325MG TAB PO PRN ×2 (09:54→23:30)
[2021-06-13] MEDS: buPROPion **XL** TABLET 150MG (WELLBUTRIN XL) PO SCH (09:55)
[2021-06-13] MEDS: SUCRALFATE SUSP 1GM/10ML UD PO SCH ×2 (09:55→22:13)
[2021-06-13] MEDS: DIGOXIN 0.125 MG TAB PO SCH (09:55)
[2021-06-13] MEDS: FAMOTIDINE 20 MG TAB PO SCH ×2 (09:55→22:15)
[2021-06-13] MEDS: FUROSEMIDE 40 MG TAB PO SCH (09:55)
[2021-06-13] MEDS: NYSTATIN 100,000 UNITS/GM TOPICAL PWD 15 GM TOP SCH ×3 (09:57→22:16)
[2021-06-13] MEDS: CAPSAICIN 0.025% CR 60 GM TOP SCH ×3 (09:57→22:16)
[2021-06-13] MEDS: OLANZapine 5 MG TAB PO PRN (14:35)
[2021-06-13] MEDS: QUEtiapine FUMARATE 25 MG TAB PO SCH (17:02)
[2021-06-13] MEDS: ATORVASTATIN 20 MG TAB PO SCH (22:15)
[2021-06-14] MEDS: LACTOBACILLUS ACIDOPHILUS CAP (BACID) PO SCH ×4 (08:00→20:46)
[2021-06-14] MEDS: CAPSAICIN 0.025% CR 60 GM TOP SCH ×3 (09:00→20:46)
[2021-06-14] MEDS: SODIUM BICARBONATE 325 MG TAB PO SCH ×4 (09:00→20:46)
[2021-06-14] MEDS: NYSTATIN 100,000 UNITS/GM TOPICAL PWD 15 GM TOP SCH ×3 (09:00→20:46)
[2021-06-14] MEDS: FUROSEMIDE 40 MG TAB PO SCH (12:36)
[2021-06-14] MEDS: FAMOTIDINE 20 MG TAB PO SCH ×2 (12:36→20:45)
[2021-06-14] MEDS: buPROPion **XL** TABLET 150MG (WELLBUTRIN XL) PO SCH (12:37)
[2021-06-14] MEDS: ASPIRIN 81 MG CHEW TABLET PO SCH (12:37)
[2021-06-14] MEDS: SUCRALFATE SUSP 1GM/10ML UD PO SCH ×2 (12:37→20:45)
[2021-06-14] MEDS: FLECAINIDE 50MG TABLET PO SCH ×2 (12:37→20:45)
[2021-06-14] MEDS: MULTIVITAMINS/MINERALS THERAP 1 TAB PO SCH (12:38)
[2021-06-14] MEDS: APIXABAN 5 MG TAB (ELIQUIS) PO SCH ×2 (12:38→20:46)
[2021-06-14] MEDS: DIGOXIN 0.125 MG TAB PO SCH (12:44)
[2021-06-14] MEDS: amLODIPine 5 MG TAB PO SCH ×2 (12:44→20:46)
[2021-06-14] MEDS: bisoproloL fumarate 5 MG TAB PO SCH ×2 (12:44→20:46)
[2021-06-14] MEDS: ACETAMINOPHEN TAB 650MG DOSE (2X325MG) PO PRN (12:48)
[2021-06-14] MEDS: QUEtiapine FUMARATE 25 MG TAB PO SCH (17:11)
[2021-06-14 20:40] VITALS: BP 143/65
[2021-06-14] MEDS: ATORVASTATIN 20 MG TAB PO SCH (20:45)
[2021-06-15] MEDS: PERCOCET 5MG/325MG TAB PO PRN ×2 (01:03→21:04)
[2021-06-15 06:00] VITALS: BP 146/67
[2021-06-15] MEDS: amLODIPine 5 MG TAB PO SCH ×2 (09:00→21:04)
[2021-06-15] MEDS: DIGOXIN 0.125 MG TAB PO SCH (09:00)
[2021-06-15] MEDS: bisoproloL fumarate 5 MG TAB PO SCH ×2 (09:00→21:05)
[2021-06-15] MEDS: APIXABAN 5 MG TAB (ELIQUIS) PO SCH ×2 (09:23→21:04)
[2021-06-15] MEDS: SUCRALFATE SUSP 1GM/10ML UD PO SCH ×2 (09:23→21:03)
[2021-06-15] MEDS: SODIUM BICARBONATE 325 MG TAB PO SCH ×4 (09:23→21:03)
[2021-06-15] MEDS: FLECAINIDE 50MG TABLET PO SCH ×2 (09:23→21:04)
[2021-06-15] MEDS: LACTOBACILLUS ACIDOPHILUS CAP (BACID) PO SCH ×4 (09:23→21:03)
[2021-06-15] MEDS: ASPIRIN 81 MG CHEW TABLET PO SCH (09:23)
[2021-06-15] MEDS: FAMOTIDINE 20 MG TAB PO SCH ×2 (09:24→21:04)
[2021-06-15] MEDS: buPROPion **XL** TABLET 150MG (WELLBUTRIN XL) PO SCH (09:24)
[2021-06-15] MEDS: FUROSEMIDE 40 MG TAB PO SCH (09:24)
[2021-06-15] MEDS: MULTIVITAMINS/MINERALS THERAP 1 TAB PO SCH (09:24)
[2021-06-15] MEDS: CAPSAICIN 0.025% CR 60 GM TOP SCH ×3 (09:28→21:05)
[2021-06-15] MEDS: NYSTATIN 100,000 UNITS/GM TOPICAL PWD 15 GM TOP SCH ×3 (09:28→21:05)
[2021-06-15 09:58] LABS: HEMATOCRIT 32.8 % (36.0-47.0); HEMOGLOBIN 10.5 g/dl (12.0-15.5); MEAN CORPUSCULAR HEMOGLOBIN 31.2 pg (27.0-33.0); MEAN CORPUSCULAR VOLUME 97.3 fl (80.0-96.0); PLATELET COUNT, AUTOMATED 226 10^3/uL (150-450); RED BLOOD COUNT 3.37 10^6/uL (4.00-5.40); WHITE BLOOD COUNT 4.6 10^3/uL (4.0-10.0)
[2021-06-15 10:26] LABS: CALCIUM LEVEL 10.7 MG/DL (8.8-10.2); CREATININE FOR GFR 0.99 MG/DL (0.55-1.30); GLOMERULAR FILTRATION RATE 59.7 (>45); MAGNESIUM LEVEL 2.3 MG/DL (1.8-2.4); POTASSIUM SERUM 4.2 MEQ/L (3.5-5.1)
[2021-06-15] MEDS: QUEtiapine FUMARATE 25 MG TAB PO SCH (15:17)
[2021-06-15 20:11] VITALS: BP 152/72
[2021-06-15] MEDS: ATORVASTATIN 20 MG TAB PO SCH (21:04)
[2021-06-16 06:00] VITALS: BP 167/74
[2021-06-16] MEDS: FLECAINIDE 50MG TABLET PO SCH ×2 (10:19→20:41)
[2021-06-16] MEDS: APIXABAN 5 MG TAB (ELIQUIS) PO SCH ×2 (10:20→20:41)
[2021-06-16] MEDS: buPROPion **XL** TABLET 150MG (WELLBUTRIN XL) PO SCH (10:20)
[2021-06-16] MEDS: MULTIVITAMINS/MINERALS THERAP 1 TAB PO SCH (10:20)
[2021-06-16] MEDS: FAMOTIDINE 20 MG TAB PO SCH ×2 (10:20→20:41)
[2021-06-16] MEDS: amLODIPine 5 MG TAB PO SCH ×2 (10:20→20:41)
[2021-06-16] MEDS: SODIUM BICARBONATE 325 MG TAB PO SCH ×4 (10:20→20:41)
[2021-06-16] MEDS: SUCRALFATE SUSP 1GM/10ML UD PO SCH ×2 (10:21→20:40)
[2021-06-16] MEDS: ASPIRIN 81 MG CHEW TABLET PO SCH (10:21)
[2021-06-16] MEDS: FUROSEMIDE 40 MG TAB PO SCH (10:22)
[2021-06-16] MEDS: bisoproloL fumarate 5 MG TAB PO SCH ×2 (10:22→20:41)
[2021-06-16] MEDS: DIGOXIN 0.125 MG TAB PO SCH (10:22)
[2021-06-16] MEDS: NYSTATIN 100,000 UNITS/GM TOPICAL PWD 15 GM TOP SCH ×3 (10:24→20:42)
[2021-06-16] MEDS: LACTOBACILLUS ACIDOPHILUS CAP (BACID) PO SCH ×4 (10:24→20:41)
[2021-06-16] MEDS: CAPSAICIN 0.025% CR 60 GM TOP SCH ×3 (10:25→20:42)
[2021-06-16 13:09] LABS: HEMATOCRIT 34.1 % (36.0-47.0); HEMOGLOBIN 10.8 g/dl (12.0-15.5); MEAN CORPUSCULAR HEMOGLOBIN 30.5 pg (27.0-33.0); MEAN CORPUSCULAR HGB CONC 31.7 g/dl (32.0-36.5); MEAN CORPUSCULAR VOLUME 96.3 fl (80.0-96.0); PLATELET COUNT, AUTOMATED 214 10^3/uL (150-450); RED BLOOD COUNT 3.54 10^6/uL (4.00-5.40)
[2021-06-16 13:37] LABS: BLOOD UREA NITROGEN 26 MG/DL (7-18); CALCIUM LEVEL 11.5 MG/DL (8.8-10.2); CARBON DIOXIDE LEVEL 30 MEQ/L (21-32); CHLORIDE LEVEL 105 MEQ/L (98-107); GLOMERULAR FILTRATION RATE > 60.0 (>45); GLUCOSE, FASTING 115 MG/DL (70-100); POTASSIUM SERUM 4.3 MEQ/L (3.5-5.1); SODIUM LEVEL 140 MEQ/L (136-145)
[2021-06-16] MEDS: QUEtiapine FUMARATE 25 MG TAB PO SCH (16:18)
[2021-06-16] MEDS: ATORVASTATIN 20 MG TAB PO SCH (20:41)
[2021-06-16] MEDS: OLANZapine 5 MG TAB PO PRN (20:41)
[2021-06-17 06:00] VITALS: BP 118/57
[2021-06-17 08:18] VITALS: BP 118/57
[2021-06-17] MEDS: ASPIRIN 81 MG CHEW TABLET PO SCH (09:27)
[2021-06-17] MEDS: SUCRALFATE SUSP 1GM/10ML UD PO SCH ×2 (09:27→21:42)
[2021-06-17] MEDS: buPROPion **XL** TABLET 150MG (WELLBUTRIN XL) PO SCH (09:27)
[2021-06-17] MEDS: PERCOCET 5MG/325MG TAB PO PRN ×2 (09:28→21:43)
[2021-06-17] MEDS: DIGOXIN 0.125 MG TAB PO SCH (09:28)
[2021-06-17] MEDS: OLANZapine 5 MG TAB PO PRN ×2 (09:29→21:59)
[2021-06-17] MEDS: LACTOBACILLUS ACIDOPHILUS CAP (BACID) PO SCH ×4 (09:29→21:42)
[2021-06-17] MEDS: MULTIVITAMINS/MINERALS THERAP 1 TAB PO SCH (09:29)
[2021-06-17] MEDS: amLODIPine 5 MG TAB PO SCH ×2 (09:30→21:43)
[2021-06-17] MEDS: APIXABAN 5 MG TAB (ELIQUIS) PO SCH ×2 (09:31→21:42)
[2021-06-17] MEDS: SODIUM BICARBONATE 325 MG TAB PO SCH ×4 (09:31→21:43)
[2021-06-17] MEDS: bisoproloL fumarate 5 MG TAB PO SCH ×2 (09:31→21:42)
[2021-06-17] MEDS: FUROSEMIDE 40 MG TAB PO SCH (09:31)
[2021-06-17] MEDS: FAMOTIDINE 20 MG TAB PO SCH ×2 (09:31→21:42)
[2021-06-17] MEDS: NYSTATIN 100,000 UNITS/GM TOPICAL PWD 15 GM TOP SCH ×3 (09:34→21:44)
[2021-06-17] MEDS: CAPSAICIN 0.025% CR 60 GM TOP SCH ×3 (09:40→21:44)
[2021-06-17] MEDS: FLECAINIDE 50MG TABLET PO SCH ×2 (10:07→21:44)
[2021-06-17] MEDS: QUEtiapine FUMARATE 25 MG TAB PO SCH (15:54)
[2021-06-17] MEDS: ATORVASTATIN 20 MG TAB PO SCH (21:42)
[2021-06-18 08:20] VITALS: BP 118/57
[2021-06-18] MEDS: NYSTATIN 100,000 UNITS/GM TOPICAL PWD 15 GM TOP SCH ×3 (09:51→20:40)
[2021-06-18] MEDS: CAPSAICIN 0.025% CR 60 GM TOP SCH ×3 (09:52→20:40)
[2021-06-18] MEDS: SUCRALFATE SUSP 1GM/10ML UD PO SCH ×2 (09:52→20:38)
[2021-06-18] MEDS: ASPIRIN 81 MG CHEW TABLET PO SCH (09:52)
[2021-06-18] MEDS: FLECAINIDE 50MG TABLET PO SCH ×2 (09:53→20:38)
[2021-06-18] MEDS: APIXABAN 5 MG TAB (ELIQUIS) PO SCH ×2 (09:53→20:38)
[2021-06-18] MEDS: FAMOTIDINE 20 MG TAB PO SCH ×2 (09:53→20:39)
[2021-06-18] MEDS: DIGOXIN 0.125 MG TAB PO SCH (09:54)
[2021-06-18] MEDS: PERCOCET 5MG/325MG TAB PO PRN ×3 (09:54→20:39)
[2021-06-18] MEDS: FUROSEMIDE 40 MG TAB PO SCH (09:55)
[2021-06-18] MEDS: bisoproloL fumarate 5 MG TAB PO SCH ×2 (09:55→20:38)
[2021-06-18] MEDS: MULTIVITAMINS/MINERALS THERAP 1 TAB PO SCH (09:55)
[2021-06-18] MEDS: LACTOBACILLUS ACIDOPHILUS CAP (BACID) PO SCH ×4 (09:55→20:38)
[2021-06-18] MEDS: SODIUM BICARBONATE 325 MG TAB PO SCH ×4 (09:55→20:38)
[2021-06-18] MEDS: OLANZapine 5 MG TAB PO PRN ×2 (09:56→20:38)
[2021-06-18] MEDS: amLODIPine 5 MG TAB PO SCH ×2 (09:56→20:39)
[2021-06-18] MEDS: buPROPion **XL** TABLET 150MG (WELLBUTRIN XL) PO SCH (09:57)
[2021-06-18] MEDS: ACETAMINOPHEN TAB 650MG DOSE (2X325MG) PO PRN (11:39)
[2021-06-18] MEDS: QUEtiapine FUMARATE 25 MG TAB PO SCH (15:42)
[2021-06-18] MEDS: ATORVASTATIN 20 MG TAB PO SCH (20:38)
[2021-06-19] MEDS: DIGOXIN 0.125 MG TAB PO SCH (08:12)
[2021-06-19] MEDS: SUCRALFATE SUSP 1GM/10ML UD PO SCH ×2 (08:12→19:49)
[2021-06-19] MEDS: FLECAINIDE 50MG TABLET PO SCH ×2 (08:12→19:52)
[2021-06-19] MEDS: SODIUM BICARBONATE 325 MG TAB PO SCH ×4 (08:12→19:51)
[2021-06-19] MEDS: FUROSEMIDE 40 MG TAB PO SCH (08:12)
[2021-06-19] MEDS: MULTIVITAMINS/MINERALS THERAP 1 TAB PO SCH (08:12)
[2021-06-19] MEDS: ASPIRIN 81 MG CHEW TABLET PO SCH (08:13)
[2021-06-19] MEDS: LACTOBACILLUS ACIDOPHILUS CAP (BACID) PO SCH ×4 (08:13→19:52)
[2021-06-19] MEDS: amLODIPine 5 MG TAB PO SCH ×2 (08:13→19:50)
[2021-06-19] MEDS: buPROPion **XL** TABLET 150MG (WELLBUTRIN XL) PO SCH (08:14)
[2021-06-19] MEDS: FAMOTIDINE 20 MG TAB PO SCH ×2 (08:14→19:52)
[2021-06-19] MEDS: bisoproloL fumarate 5 MG TAB PO SCH ×2 (08:14→19:52)
[2021-06-19] MEDS: NYSTATIN 100,000 UNITS/GM TOPICAL PWD 15 GM TOP SCH ×3 (08:14→19:53)
[2021-06-19] MEDS: PERCOCET 5MG/325MG TAB PO PRN ×2 (08:15→17:26)
[2021-06-19] MEDS: CAPSAICIN 0.025% CR 60 GM TOP SCH ×3 (08:15→19:54)
[2021-06-19] MEDS: APIXABAN 5 MG TAB (ELIQUIS) PO SCH ×2 (10:15→19:51)
[2021-06-19] MEDS: QUEtiapine FUMARATE 25 MG TAB PO SCH (17:25)
[2021-06-19] MEDS: ATORVASTATIN 20 MG TAB PO SCH (19:50)
[2021-06-19] MEDS: ACETAMINOPHEN TAB 650MG DOSE (2X325MG) PO PRN (19:53)
[2021-06-20 06:00] VITALS: BP 136/87
[2021-06-20] MEDS: ASPIRIN 81 MG CHEW TABLET PO SCH (08:43)
[2021-06-20] MEDS: SUCRALFATE SUSP 1GM/10ML UD PO SCH ×2 (08:43→19:41)
[2021-06-20] MEDS: APIXABAN 5 MG TAB (ELIQUIS) PO SCH ×2 (08:45→19:41)
[2021-06-20] MEDS: FAMOTIDINE 20 MG TAB PO SCH ×2 (08:45→19:42)
[2021-06-20] MEDS: SODIUM BICARBONATE 325 MG TAB PO SCH ×4 (08:46→19:41)
[2021-06-20] MEDS: FUROSEMIDE 40 MG TAB PO SCH (08:46)
[2021-06-20] MEDS: LACTOBACILLUS ACIDOPHILUS CAP (BACID) PO SCH ×4 (08:46→19:41)
[2021-06-20] MEDS: buPROPion **XL** TABLET 150MG (WELLBUTRIN XL) PO SCH (08:46)
[2021-06-20] MEDS: amLODIPine 5 MG TAB PO SCH ×2 (08:46→19:43)
[2021-06-20] MEDS: MULTIVITAMINS/MINERALS THERAP 1 TAB PO SCH (08:47)
[2021-06-20] MEDS: bisoproloL fumarate 5 MG TAB PO SCH ×2 (08:47→19:42)
[2021-06-20] MEDS: NYSTATIN 100,000 UNITS/GM TOPICAL PWD 15 GM TOP SCH ×3 (08:47→19:45)
[2021-06-20] MEDS: FLECAINIDE 50MG TABLET PO SCH ×2 (08:47→19:42)
[2021-06-20] MEDS: DIGOXIN 0.125 MG TAB PO SCH (08:49)
[2021-06-20] MEDS: CAPSAICIN 0.025% CR 60 GM TOP SCH ×3 (08:50→19:45)
[2021-06-20] MEDS: QUEtiapine FUMARATE 25 MG TAB PO SCH (15:57)
[2021-06-20] MEDS: ATORVASTATIN 20 MG TAB PO SCH (19:42)
[2021-06-20] MEDS: OLANZapine 5 MG TAB PO PRN (19:42)
[2021-06-21] MEDS: FUROSEMIDE 40 MG TAB PO SCH (09:42)
[2021-06-21] MEDS: APIXABAN 5 MG TAB (ELIQUIS) PO SCH ×2 (09:42→20:08)
[2021-06-21] MEDS: SUCRALFATE SUSP 1GM/10ML UD PO SCH ×2 (09:42→20:08)
[2021-06-21] MEDS: FAMOTIDINE 20 MG TAB PO SCH ×2 (09:42→20:08)
[2021-06-21] MEDS: buPROPion **XL** TABLET 150MG (WELLBUTRIN XL) PO SCH (09:43)
[2021-06-21] MEDS: DIGOXIN 0.125 MG TAB PO SCH (09:43)
[2021-06-21] MEDS: amLODIPine 5 MG TAB PO SCH ×2 (09:46→20:09)
[2021-06-21] MEDS: ASPIRIN 81 MG CHEW TABLET PO SCH (09:46)
[2021-06-21] MEDS: FLECAINIDE 50MG TABLET PO SCH ×2 (09:46→20:08)
[2021-06-21] MEDS: bisoproloL fumarate 5 MG TAB PO SCH ×2 (09:46→20:09)
[2021-06-21] MEDS: MULTIVITAMINS/MINERALS THERAP 1 TAB PO SCH (09:47)
[2021-06-21] MEDS: CAPSAICIN 0.025% CR 60 GM TOP SCH ×3 (09:47→20:10)
[2021-06-21] MEDS: LACTOBACILLUS ACIDOPHILUS CAP (BACID) PO SCH ×4 (09:47→20:09)
[2021-06-21] MEDS: SODIUM BICARBONATE 325 MG TAB PO SCH ×4 (09:47→20:09)
[2021-06-21] MEDS: NYSTATIN 100,000 UNITS/GM TOPICAL PWD 15 GM TOP SCH ×3 (09:47→20:10)
[2021-06-21] MEDS: QUEtiapine FUMARATE 25 MG TAB PO SCH (16:52)
[2021-06-21] MEDS: ATORVASTATIN 20 MG TAB PO SCH (20:08)
[2021-06-21] MEDS: ACETAMINOPHEN TAB 650MG DOSE (2X325MG) PO PRN (20:09)
[2021-06-22] MEDS: ACETAMINOPHEN TAB 650MG DOSE (2X325MG) PO PRN ×2 (04:20→20:16)
[2021-06-22] MEDS ORDERED: FOSFOMYCIN TROMETHAMINE 3 GM POWDER PACKET (MONUROL) PO ONE (04:40)
[2021-06-22 06:00] VITALS: BP 146/64
[2021-06-22] MEDS: MULTIVITAMINS/MINERALS THERAP 1 TAB PO SCH (09:52)
[2021-06-22] MEDS: ASPIRIN 81 MG CHEW TABLET PO SCH (09:52)
[2021-06-22] MEDS: SUCRALFATE SUSP 1GM/10ML UD PO SCH ×2 (09:52→20:16)
[2021-06-22] MEDS: FAMOTIDINE 20 MG TAB PO SCH ×2 (09:52→20:16)
[2021-06-22] MEDS: SODIUM BICARBONATE 325 MG TAB PO SCH ×4 (09:52→20:15)
[2021-06-22] MEDS: buPROPion **XL** TABLET 150MG (WELLBUTRIN XL) PO SCH (09:52)
[2021-06-22] MEDS: APIXABAN 5 MG TAB (ELIQUIS) PO SCH ×2 (09:52→20:15)
[2021-06-22] MEDS: bisoproloL fumarate 5 MG TAB PO SCH ×2 (09:53→20:14)
[2021-06-22] MEDS: LACTOBACILLUS ACIDOPHILUS CAP (BACID) PO SCH ×4 (09:53→20:15)
[2021-06-22] MEDS: amLODIPine 5 MG TAB PO SCH ×2 (09:53→20:15)
[2021-06-22] MEDS: FUROSEMIDE 40 MG TAB PO SCH (09:53)
[2021-06-22] MEDS: DIGOXIN 0.125 MG TAB PO SCH (09:54)
[2021-06-22] MEDS: PHENAZOPYRIDINE 100 MG TAB PO SCH ×3 (09:54→20:15)
[2021-06-22] MEDS: FLECAINIDE 50MG TABLET PO SCH ×2 (09:54→20:16)
[2021-06-22] MEDS: NYSTATIN 100,000 UNITS/GM TOPICAL PWD 15 GM TOP SCH ×3 (09:55→20:18)
[2021-06-22] MEDS: CAPSAICIN 0.025% CR 60 GM TOP SCH ×3 (09:55→20:17)
[2021-06-22] MEDS: QUEtiapine FUMARATE 25 MG TAB PO SCH (16:58)
[2021-06-22] MEDS: ATORVASTATIN 20 MG TAB PO SCH (20:15)
[2021-06-23] MEDS: PERCOCET 5MG/325MG TAB PO PRN ×2 (03:03→19:52)
[2021-06-23 06:00] VITALS: BP 134/73
[2021-06-23] MEDS: bisoproloL fumarate 5 MG TAB PO SCH ×2 (09:00→19:53)
[2021-06-23] MEDS: DIGOXIN 0.125 MG TAB PO SCH (09:00)
[2021-06-23] MEDS: ASPIRIN 81 MG CHEW TABLET PO SCH (09:01)
[2021-06-23] MEDS: SUCRALFATE SUSP 1GM/10ML UD PO SCH ×2 (09:01→19:51)
[2021-06-23] MEDS: MULTIVITAMINS/MINERALS THERAP 1 TAB PO SCH (09:02)
[2021-06-23] MEDS: APIXABAN 5 MG TAB (ELIQUIS) PO SCH ×2 (09:02→19:51)
[2021-06-23] MEDS: SODIUM BICARBONATE 325 MG TAB PO SCH ×4 (09:02→19:52)
[2021-06-23] MEDS: LACTOBACILLUS ACIDOPHILUS CAP (BACID) PO SCH ×4 (09:02→19:52)
[2021-06-23] MEDS: FLECAINIDE 50MG TABLET PO SCH ×2 (09:02→19:52)
[2021-06-23] MEDS: buPROPion **XL** TABLET 150MG (WELLBUTRIN XL) PO SCH (09:03)
[2021-06-23] MEDS: FUROSEMIDE 40 MG TAB PO SCH (09:03)
[2021-06-23] MEDS: FAMOTIDINE 20 MG TAB PO SCH ×2 (09:04→19:51)
[2021-06-23] MEDS: PHENAZOPYRIDINE 100 MG TAB PO SCH ×3 (09:04→19:51)
[2021-06-23] MEDS: amLODIPine 5 MG TAB PO SCH ×2 (09:04→19:53)
[2021-06-23] MEDS: NYSTATIN 100,000 UNITS/GM TOPICAL PWD 15 GM TOP SCH ×3 (09:05→19:56)
[2021-06-23] MEDS: CAPSAICIN 0.025% CR 60 GM TOP SCH ×3 (09:05→19:56)
[2021-06-23] MEDS: ACETAMINOPHEN TAB 650MG DOSE (2X325MG) PO PRN (10:52)
[2021-06-23] MEDS: QUEtiapine FUMARATE 25 MG TAB PO SCH (16:57)
[2021-06-23] MEDS: ATORVASTATIN 20 MG TAB PO SCH (19:51)
[2021-06-24] MEDS: ACETAMINOPHEN TAB 650MG DOSE (2X325MG) PO PRN (00:19)
[2021-06-24] MEDS: CEFDINIR 300 MG CAP (OMNICEF) PO SCH ×3 (01:33→20:36)
[2021-06-24 06:00] VITALS: BP 148/71
[2021-06-24] MEDS: NYSTATIN 100,000 UNITS/GM TOPICAL PWD 15 GM TOP SCH ×3 (09:00→20:39)
[2021-06-24] MEDS: CAPSAICIN 0.025% CR 60 GM TOP SCH ×3 (09:00→20:39)
[2021-06-24] MEDS: SUCRALFATE SUSP 1GM/10ML UD PO SCH ×2 (09:19→20:36)
[2021-06-24] MEDS: FLECAINIDE 50MG TABLET PO SCH ×2 (09:19→20:37)
[2021-06-24] MEDS: buPROPion **XL** TABLET 150MG (WELLBUTRIN XL) PO SCH (09:19)
[2021-06-24] MEDS: APIXABAN 5 MG TAB (ELIQUIS) PO SCH ×2 (09:19→20:38)
[2021-06-24] MEDS: FUROSEMIDE 40 MG TAB PO SCH (09:20)
[2021-06-24] MEDS: LACTOBACILLUS ACIDOPHILUS CAP (BACID) PO SCH ×4 (09:20→20:37)
[2021-06-24] MEDS: DIGOXIN 0.125 MG TAB PO SCH (09:20)
[2021-06-24] MEDS: amLODIPine 5 MG TAB PO SCH ×2 (09:20→20:37)
[2021-06-24] MEDS: PHENAZOPYRIDINE 100 MG TAB PO SCH ×3 (09:20→20:38)
[2021-06-24] MEDS: MULTIVITAMINS/MINERALS THERAP 1 TAB PO SCH (09:20)
[2021-06-24] MEDS: FAMOTIDINE 20 MG TAB PO SCH ×2 (09:20→20:37)
[2021-06-24] MEDS: ASPIRIN 81 MG CHEW TABLET PO SCH (09:20)
[2021-06-24] MEDS: SODIUM BICARBONATE 325 MG TAB PO SCH ×4 (09:20→20:38)
[2021-06-24] MEDS: bisoproloL fumarate 5 MG TAB PO SCH ×2 (09:21→20:38)
[2021-06-24 09:41] LABS: BASO % 0.7 % (0.0-1.0); EOS # 0.2 10^3/uL (0.0-0.5); EOS % 3.5 % (0.0-3.0); HEMATOCRIT 36.4 % (36.0-47.0); HEMOGLOBIN 11.5 g/dl (12.0-15.5); LYMPH # 1.1 10^3/uL (1.5-5.0); LYMPH % 24.3 % (24.0-44.0); MEAN CORPUSCULAR HGB CONC 31.6 g/dl (32.0-36.5); MEAN CORPUSCULAR VOLUME 98.1 fl (80.0-96.0); MONO # 0.4 10^3/uL (0.0-0.8); NEUTROPHILS # 2.9 10^3/uL (1.5-8.5); NEUTROPHILS % 63.3 % (36.0-66.0); PLATELET COUNT, AUTOMATED 242 10^3/uL (150-450); RED BLOOD COUNT 3.71 10^6/uL (4.00-5.40); WHITE BLOOD COUNT 4.6 10^3/uL (4.0-10.0)
[2021-06-24 09:57] LABS: BLOOD UREA NITROGEN 35 MG/DL (7-18); CALCIUM LEVEL 11.7 MG/DL (8.8-10.2); CARBON DIOXIDE LEVEL 27 MEQ/L (21-32); CHLORIDE LEVEL 107 MEQ/L (98-107); CREATININE FOR GFR 0.97 MG/DL (0.55-1.30); GLOMERULAR FILTRATION RATE > 60.0 (>45); GLUCOSE, FASTING 102 MG/DL (70-100); POTASSIUM SERUM 4.9 MEQ/L (3.5-5.1); SODIUM LEVEL 139 MEQ/L (136-145)
[2021-06-24] MEDS: QUEtiapine FUMARATE 25 MG TAB PO SCH (16:53)
[2021-06-24] MEDS: OLANZapine 5 MG TAB PO PRN (20:36)
[2021-06-24] MEDS: ATORVASTATIN 20 MG TAB PO SCH (20:37)
[2021-06-24] MEDS: PERCOCET 5MG/325MG TAB PO PRN (20:38)
[2021-06-25 06:00] VITALS: BP 151/77
[2021-06-25] MEDS: FUROSEMIDE 40 MG TAB PO SCH (08:30)
[2021-06-25] MEDS: buPROPion **XL** TABLET 150MG (WELLBUTRIN XL) PO SCH (08:30)
[2021-06-25] MEDS: FAMOTIDINE 20 MG TAB PO SCH ×2 (08:30→20:37)
[2021-06-25] MEDS: bisoproloL fumarate 5 MG TAB PO SCH ×2 (08:31→20:36)
[2021-06-25] MEDS: DIGOXIN 0.125 MG TAB PO SCH (08:31)
[2021-06-25] MEDS: FLECAINIDE 50MG TABLET PO SCH ×2 (08:32→20:36)
[2021-06-25] MEDS: CEFDINIR 300 MG CAP (OMNICEF) PO SCH ×2 (08:32→20:35)
[2021-06-25] MEDS: MULTIVITAMINS/MINERALS THERAP 1 TAB PO SCH (08:32)
[2021-06-25] MEDS: APIXABAN 5 MG TAB (ELIQUIS) PO SCH ×2 (08:33→20:37)
[2021-06-25] MEDS: LACTOBACILLUS ACIDOPHILUS CAP (BACID) PO SCH ×4 (08:33→20:35)
[2021-06-25] MEDS: SODIUM BICARBONATE 325 MG TAB PO SCH ×4 (08:33→20:35)
[2021-06-25] MEDS: SUCRALFATE SUSP 1GM/10ML UD PO SCH ×2 (08:33→20:35)
[2021-06-25] MEDS: ASPIRIN 81 MG CHEW TABLET PO SCH (08:33)
[2021-06-25] MEDS: NYSTATIN 100,000 UNITS/GM TOPICAL PWD 15 GM TOP SCH ×3 (08:34→20:38)
[2021-06-25] MEDS: amLODIPine 5 MG TAB PO SCH ×2 (08:34→20:36)
[2021-06-25] MEDS: CAPSAICIN 0.025% CR 60 GM TOP SCH ×3 (08:35→20:37)
[2021-06-25] MEDS: PERCOCET 5MG/325MG TAB PO PRN ×2 (12:43→20:37)
[2021-06-25] MEDS: QUEtiapine FUMARATE 25 MG TAB PO SCH (15:11)
[2021-06-25] MEDS: OLANZapine 5 MG TAB PO PRN ×2 (15:12→20:36)
[2021-06-25] MEDS: ATORVASTATIN 20 MG TAB PO SCH (20:36)
[2021-06-26 09:00] VITALS: BP 120/62
[2021-06-26] MEDS: amLODIPine 5 MG TAB PO SCH ×2 (09:00→20:24)
[2021-06-26] MEDS: FUROSEMIDE 40 MG TAB PO SCH (09:19)
[2021-06-26] MEDS: SUCRALFATE SUSP 1GM/10ML UD PO SCH ×2 (09:19→20:23)
[2021-06-26] MEDS: FAMOTIDINE 20 MG TAB PO SCH ×2 (09:19→20:24)
[2021-06-26] MEDS: buPROPion **XL** TABLET 150MG (WELLBUTRIN XL) PO SCH (09:19)
[2021-06-26] MEDS: FLECAINIDE 50MG TABLET PO SCH ×2 (09:20→20:23)
[2021-06-26] MEDS: bisoproloL fumarate 5 MG TAB PO SCH ×2 (09:21→20:23)
[2021-06-26] MEDS: LACTOBACILLUS ACIDOPHILUS CAP (BACID) PO SCH ×4 (09:21→20:23)
[2021-06-26] MEDS: ASPIRIN 81 MG CHEW TABLET PO SCH (09:21)
[2021-06-26] MEDS: SODIUM BICARBONATE 325 MG TAB PO SCH ×4 (09:21→20:23)
[2021-06-26] MEDS: CEFDINIR 300 MG CAP (OMNICEF) PO SCH ×2 (09:21→20:23)
[2021-06-26] MEDS: MULTIVITAMINS/MINERALS THERAP 1 TAB PO SCH (09:21)
[2021-06-26] MEDS: APIXABAN 5 MG TAB (ELIQUIS) PO SCH ×2 (09:22→20:24)
[2021-06-26] MEDS: NYSTATIN 100,000 UNITS/GM TOPICAL PWD 15 GM TOP SCH ×3 (09:22→20:23)
[2021-06-26] MEDS: DIGOXIN 0.125 MG TAB PO SCH (09:22)
[2021-06-26] MEDS: CAPSAICIN 0.025% CR 60 GM TOP SCH ×3 (09:23→20:22)
[2021-06-26] MEDS: QUEtiapine FUMARATE 25 MG TAB PO SCH (17:12)
[2021-06-26 19:29] VITALS: BP 157/72
[2021-06-26] MEDS: OLANZapine 5 MG TAB PO PRN (20:23)
[2021-06-26] MEDS: ATORVASTATIN 20 MG TAB PO SCH (20:24)
[2021-06-26] MEDS: PERCOCET 5MG/325MG TAB PO PRN (20:24)
[2021-06-27 02:51] VITALS: BP 140/71
[2021-06-27] MEDS: PERCOCET 5MG/325MG TAB PO PRN (05:56)
[2021-06-27] MEDS: ASPIRIN 81 MG CHEW TABLET PO SCH (08:18)
[2021-06-27] MEDS: FUROSEMIDE 40 MG TAB PO SCH (08:18)
[2021-06-27] MEDS: SUCRALFATE SUSP 1GM/10ML UD PO SCH ×2 (08:18→19:37)
[2021-06-27] MEDS: LACTOBACILLUS ACIDOPHILUS CAP (BACID) PO SCH ×4 (08:18→19:37)
[2021-06-27] MEDS: APIXABAN 5 MG TAB (ELIQUIS) PO SCH ×2 (08:19→19:36)
[2021-06-27] MEDS: MULTIVITAMINS/MINERALS THERAP 1 TAB PO SCH (08:19)
[2021-06-27] MEDS: buPROPion **XL** TABLET 150MG (WELLBUTRIN XL) PO SCH (08:19)
[2021-06-27] MEDS: SODIUM BICARBONATE 325 MG TAB PO SCH ×4 (08:19→19:36)
[2021-06-27] MEDS: FLECAINIDE 50MG TABLET PO SCH ×2 (08:19→19:37)
[2021-06-27] MEDS: CEFDINIR 300 MG CAP (OMNICEF) PO SCH ×2 (08:19→19:36)
[2021-06-27] MEDS: FAMOTIDINE 20 MG TAB PO SCH ×2 (08:19→19:36)
[2021-06-27] MEDS: DIGOXIN 0.125 MG TAB PO SCH (08:20)
[2021-06-27] MEDS: bisoproloL fumarate 5 MG TAB PO SCH ×2 (08:20→19:37)
[2021-06-27] MEDS: amLODIPine 5 MG TAB PO SCH ×2 (08:20→19:36)
[2021-06-27] MEDS: NYSTATIN 100,000 UNITS/GM TOPICAL PWD 15 GM TOP SCH ×3 (08:21→19:38)
[2021-06-27] MEDS: CAPSAICIN 0.025% CR 60 GM TOP SCH ×3 (08:21→19:38)
[2021-06-27] MEDS: QUEtiapine FUMARATE 25 MG TAB PO SCH (17:10)
[2021-06-27] MEDS: ATORVASTATIN 20 MG TAB PO SCH (19:36)
[2021-06-27] MEDS: ACETAMINOPHEN TAB 650MG DOSE (2X325MG) PO PRN (19:38)
[2021-06-28 06:00] VITALS: BP 167/74
[2021-06-28] MEDS: LACTOBACILLUS ACIDOPHILUS CAP (BACID) PO SCH ×4 (09:26→20:12)
[2021-06-28] MEDS: FAMOTIDINE 20 MG TAB PO SCH ×2 (09:26→20:13)
[2021-06-28] MEDS: MULTIVITAMINS/MINERALS THERAP 1 TAB PO SCH (09:26)
[2021-06-28] MEDS: SODIUM BICARBONATE 325 MG TAB PO SCH ×4 (09:26→20:12)
[2021-06-28] MEDS: FUROSEMIDE 40 MG TAB PO SCH (09:26)
[2021-06-28] MEDS: ASPIRIN 81 MG CHEW TABLET PO SCH (09:26)
[2021-06-28] MEDS: SUCRALFATE SUSP 1GM/10ML UD PO SCH ×2 (09:26→20:12)
[2021-06-28] MEDS: CEFDINIR 300 MG CAP (OMNICEF) PO SCH ×2 (09:26→20:12)
[2021-06-28] MEDS: amLODIPine 5 MG TAB PO SCH ×2 (09:27→20:13)
[2021-06-28] MEDS: buPROPion **XL** TABLET 150MG (WELLBUTRIN XL) PO SCH (09:27)
[2021-06-28] MEDS: DIGOXIN 0.125 MG TAB PO SCH (09:27)
[2021-06-28] MEDS: FLECAINIDE 50MG TABLET PO SCH ×2 (09:27→20:13)
[2021-06-28] MEDS: APIXABAN 5 MG TAB (ELIQUIS) PO SCH ×2 (09:27→20:13)
[2021-06-28] MEDS: bisoproloL fumarate 5 MG TAB PO SCH ×2 (09:28→20:12)
[2021-06-28] MEDS: ACETAMINOPHEN TAB 650MG DOSE (2X325MG) PO PRN (09:28)
[2021-06-28] MEDS: NYSTATIN 100,000 UNITS/GM TOPICAL PWD 15 GM TOP SCH ×3 (09:28→20:14)
[2021-06-28] MEDS: CAPSAICIN 0.025% CR 60 GM TOP SCH ×3 (09:28→20:14)
[2021-06-28] MEDS: QUEtiapine FUMARATE 25 MG TAB PO SCH (16:54)
[2021-06-28] MEDS: PERCOCET 5MG/325MG TAB PO PRN (20:13)
[2021-06-28] MEDS: ATORVASTATIN 20 MG TAB PO SCH (20:13)
[2021-06-29 06:00] VITALS: BP 154/91
[2021-06-29] MEDS: MULTIVITAMINS/MINERALS THERAP 1 TAB PO SCH (08:36)
[2021-06-29] MEDS: ASPIRIN 81 MG CHEW TABLET PO SCH (08:36)
[2021-06-29] MEDS: FLECAINIDE 50MG TABLET PO SCH ×2 (08:37→21:30)
[2021-06-29] MEDS: bisoproloL fumarate 5 MG TAB PO SCH ×2 (08:37→21:29)
[2021-06-29] MEDS: SODIUM BICARBONATE 325 MG TAB PO SCH ×4 (08:37→21:29)
[2021-06-29] MEDS: amLODIPine 5 MG TAB PO SCH ×2 (08:37→21:30)
[2021-06-29] MEDS: APIXABAN 5 MG TAB (ELIQUIS) PO SCH ×2 (08:37→21:29)
[2021-06-29] MEDS: LACTOBACILLUS ACIDOPHILUS CAP (BACID) PO SCH ×4 (08:37→21:29)
[2021-06-29] MEDS: FAMOTIDINE 20 MG TAB PO SCH ×2 (08:38→21:30)
[2021-06-29] MEDS: FUROSEMIDE 40 MG TAB PO SCH (08:38)
[2021-06-29] MEDS: CEFDINIR 300 MG CAP (OMNICEF) PO SCH ×2 (08:38→21:29)
[2021-06-29] MEDS: SUCRALFATE SUSP 1GM/10ML UD PO SCH ×2 (08:38→21:29)
[2021-06-29] MEDS: DIGOXIN 0.125 MG TAB PO SCH (08:38)
[2021-06-29] MEDS: buPROPion **XL** TABLET 150MG (WELLBUTRIN XL) PO SCH (08:38)
[2021-06-29] MEDS: CAPSAICIN 0.025% CR 60 GM TOP SCH ×3 (08:39→21:31)
[2021-06-29] MEDS: NYSTATIN 100,000 UNITS/GM TOPICAL PWD 15 GM TOP SCH ×3 (08:39→21:30)
[2021-06-29] MEDS: QUEtiapine FUMARATE 25 MG TAB PO SCH (17:03)
[2021-06-29] MEDS: PERCOCET 5MG/325MG TAB PO PRN (21:30)
[2021-06-29] MEDS: ATORVASTATIN 20 MG TAB PO SCH (21:30)
[2021-06-30 06:00] VITALS: BP 148/89
[2021-06-30] MEDS: NYSTATIN 100,000 UNITS/GM TOPICAL PWD 15 GM TOP SCH ×3 (07:45→21:39)
[2021-06-30] MEDS: CAPSAICIN 0.025% CR 60 GM TOP SCH ×3 (07:45→21:39)
[2021-06-30] MEDS: amLODIPine 5 MG TAB PO SCH ×2 (07:46→21:37)
[2021-06-30] MEDS: SODIUM BICARBONATE 325 MG TAB PO SCH ×4 (07:46→21:37)
[2021-06-30] MEDS: MULTIVITAMINS/MINERALS THERAP 1 TAB PO SCH (07:48)
[2021-06-30] MEDS: LACTOBACILLUS ACIDOPHILUS CAP (BACID) PO SCH ×4 (07:48→21:37)
[2021-06-30] MEDS: PERCOCET 5MG/325MG TAB PO PRN (07:48)
[2021-06-30] MEDS: bisoproloL fumarate 5 MG TAB PO SCH ×2 (07:49→21:36)
[2021-06-30] MEDS: FAMOTIDINE 20 MG TAB PO SCH ×2 (07:49→21:37)
[2021-06-30] MEDS: CEFDINIR 300 MG CAP (OMNICEF) PO SCH (07:50)
[2021-06-30] MEDS: FUROSEMIDE 40 MG TAB PO SCH (07:50)
[2021-06-30] MEDS: SUCRALFATE SUSP 1GM/10ML UD PO SCH ×2 (07:50→21:38)
[2021-06-30] MEDS: OLANZapine 5 MG TAB PO PRN (07:50)
[2021-06-30] MEDS: ASPIRIN 81 MG CHEW TABLET PO SCH (07:50)
[2021-06-30] MEDS: APIXABAN 5 MG TAB (ELIQUIS) PO SCH ×2 (07:50→21:37)
[2021-06-30] MEDS: buPROPion **XL** TABLET 150MG (WELLBUTRIN XL) PO SCH (07:51)
[2021-06-30] MEDS: FLECAINIDE 50MG TABLET PO SCH ×2 (07:51→21:38)
[2021-06-30] MEDS: DIGOXIN 0.125 MG TAB PO SCH (07:51)
[2021-06-30 08:40] VITALS: BP 147/87
[2021-06-30] MEDS: QUEtiapine FUMARATE 25 MG TAB PO SCH (15:17)
[2021-06-30] MEDS: ATORVASTATIN 20 MG TAB PO SCH (21:37)
[2021-07-01 05:05] VITALS: BP 122/60
[2021-07-01] MEDS: DIGOXIN 0.125 MG TAB PO SCH (09:40)
[2021-07-01] MEDS: FLECAINIDE 50MG TABLET PO SCH ×2 (09:40→22:14)
[2021-07-01] MEDS: ASPIRIN 81 MG CHEW TABLET PO SCH (09:41)
[2021-07-01] MEDS: MULTIVITAMINS/MINERALS THERAP 1 TAB PO SCH (09:41)
[2021-07-01] MEDS: SODIUM BICARBONATE 325 MG TAB PO SCH ×4 (09:41→22:14)
[2021-07-01] MEDS: amLODIPine 5 MG TAB PO SCH ×2 (09:41→22:14)
[2021-07-01] MEDS: LACTOBACILLUS ACIDOPHILUS CAP (BACID) PO SCH ×4 (09:41→22:14)
[2021-07-01] MEDS: FUROSEMIDE 40 MG TAB PO SCH (09:41)
[2021-07-01] MEDS: bisoproloL fumarate 5 MG TAB PO SCH ×2 (09:42→22:14)
[2021-07-01] MEDS: SUCRALFATE SUSP 1GM/10ML UD PO SCH ×2 (09:42→22:15)
[2021-07-01] MEDS: FAMOTIDINE 20 MG TAB PO SCH ×2 (09:42→22:15)
[2021-07-01] MEDS: APIXABAN 5 MG TAB (ELIQUIS) PO SCH ×2 (09:42→22:15)
[2021-07-01] MEDS: buPROPion **XL** TABLET 150MG (WELLBUTRIN XL) PO SCH (09:42)
[2021-07-01] MEDS: CAPSAICIN 0.025% CR 60 GM TOP SCH ×3 (09:44→22:16)
[2021-07-01] MEDS: NYSTATIN 100,000 UNITS/GM TOPICAL PWD 15 GM TOP SCH ×3 (09:44→22:16)
[2021-07-01] MEDS: QUEtiapine FUMARATE 25 MG TAB PO SCH (15:42)
[2021-07-01] MEDS: PERCOCET 5MG/325MG TAB PO PRN ×2 (17:23→22:15)
[2021-07-01] MEDS: ATORVASTATIN 20 MG TAB PO SCH (22:14)
[2021-07-02 07:00] VITALS: BP 156/81
[2021-07-02] MEDS: SUCRALFATE SUSP 1GM/10ML UD PO SCH ×2 (08:08→20:31)
[2021-07-02] MEDS: MULTIVITAMINS/MINERALS THERAP 1 TAB PO SCH (08:08)
[2021-07-02] MEDS: ASPIRIN 81 MG CHEW TABLET PO SCH (08:08)
[2021-07-02] MEDS: SODIUM BICARBONATE 325 MG TAB PO SCH ×4 (08:09→20:31)
[2021-07-02] MEDS: APIXABAN 5 MG TAB (ELIQUIS) PO SCH ×2 (08:09→20:31)
[2021-07-02] MEDS: buPROPion **XL** TABLET 150MG (WELLBUTRIN XL) PO SCH (08:09)
[2021-07-02] MEDS: FLECAINIDE 50MG TABLET PO SCH ×2 (08:09→20:32)
[2021-07-02] MEDS: LACTOBACILLUS ACIDOPHILUS CAP (BACID) PO SCH ×4 (08:09→20:32)
[2021-07-02] MEDS: FAMOTIDINE 20 MG TAB PO SCH ×2 (08:10→20:31)
[2021-07-02] MEDS: DIGOXIN 0.125 MG TAB PO SCH (08:10)
[2021-07-02] MEDS: FUROSEMIDE 40 MG TAB PO SCH (08:10)
[2021-07-02] MEDS: bisoproloL fumarate 5 MG TAB PO SCH ×2 (08:10→20:32)
[2021-07-02] MEDS: NYSTATIN 100,000 UNITS/GM TOPICAL PWD 15 GM TOP SCH ×3 (08:10→20:31)
[2021-07-02] MEDS: CAPSAICIN 0.025% CR 60 GM TOP SCH ×3 (08:11→20:30)
[2021-07-02] MEDS: amLODIPine 5 MG TAB PO SCH ×2 (09:35→20:31)
[2021-07-02] MEDS: QUEtiapine FUMARATE 25 MG TAB PO SCH (17:12)
[2021-07-02] MEDS: PERCOCET 5MG/325MG TAB PO PRN (20:31)
[2021-07-02] MEDS: ATORVASTATIN 20 MG TAB PO SCH (20:31)
[2021-07-03] MEDS: DIGOXIN 0.125 MG TAB PO SCH (11:42)
[2021-07-03] MEDS: SODIUM BICARBONATE 325 MG TAB PO SCH ×4 (11:43→20:33)
[2021-07-03] MEDS: FAMOTIDINE 20 MG TAB PO SCH ×2 (11:43→20:34)
[2021-07-03] MEDS: APIXABAN 5 MG TAB (ELIQUIS) PO SCH ×2 (11:43→20:34)
[2021-07-03] MEDS: ASPIRIN 81 MG CHEW TABLET PO SCH (11:44)
[2021-07-03] MEDS: SUCRALFATE SUSP 1GM/10ML UD PO SCH ×2 (11:44→20:33)
[2021-07-03] MEDS: amLODIPine 5 MG TAB PO SCH ×2 (11:47→20:34)
[2021-07-03] MEDS: bisoproloL fumarate 5 MG TAB PO SCH ×2 (11:47→20:33)
[2021-07-03] MEDS: LACTOBACILLUS ACIDOPHILUS CAP (BACID) PO SCH ×4 (11:47→20:33)
[2021-07-03] MEDS: FLECAINIDE 50MG TABLET PO SCH ×2 (11:48→20:33)
[2021-07-03] MEDS: buPROPion **XL** TABLET 150MG (WELLBUTRIN XL) PO SCH (11:48)
[2021-07-03] MEDS: FUROSEMIDE 40 MG TAB PO SCH (11:49)
[2021-07-03] MEDS: MULTIVITAMINS/MINERALS THERAP 1 TAB PO SCH (11:49)
[2021-07-03] MEDS: CAPSAICIN 0.025% CR 60 GM TOP SCH ×3 (11:50→20:34)
[2021-07-03] MEDS: NYSTATIN 100,000 UNITS/GM TOPICAL PWD 15 GM TOP SCH ×3 (11:50→20:34)
[2021-07-03] MEDS: QUEtiapine FUMARATE 25 MG TAB PO SCH (18:45)
[2021-07-03] MEDS: ACETAMINOPHEN TAB 650MG DOSE (2X325MG) PO PRN (20:34)
[2021-07-03] MEDS: ATORVASTATIN 20 MG TAB PO SCH (20:34)
[2021-07-04] MEDS: SODIUM BICARBONATE 325 MG TAB PO SCH ×4 (09:00→19:54)
[2021-07-04] MEDS: ASPIRIN 81 MG CHEW TABLET PO SCH (09:00)
[2021-07-04] MEDS: bisoproloL fumarate 5 MG TAB PO SCH ×2 (09:00→19:55)
[2021-07-04] MEDS: SUCRALFATE SUSP 1GM/10ML UD PO SCH ×2 (09:00→19:54)
[2021-07-04] MEDS: buPROPion **XL** TABLET 150MG (WELLBUTRIN XL) PO SCH (09:00)
[2021-07-04] MEDS: FLECAINIDE 50MG TABLET PO SCH ×2 (09:00→19:56)
[2021-07-04] MEDS: MULTIVITAMINS/MINERALS THERAP 1 TAB PO SCH (09:00)
[2021-07-04] MEDS: LACTOBACILLUS ACIDOPHILUS CAP (BACID) PO SCH ×4 (09:00→19:54)
[2021-07-04] MEDS: APIXABAN 5 MG TAB (ELIQUIS) PO SCH ×2 (09:01→19:54)
[2021-07-04] MEDS: FAMOTIDINE 20 MG TAB PO SCH ×2 (09:01→19:54)
[2021-07-04] MEDS: DIGOXIN 0.125 MG TAB PO SCH (09:01)
[2021-07-04] MEDS: amLODIPine 5 MG TAB PO SCH ×2 (09:01→19:55)
[2021-07-04] MEDS: FUROSEMIDE 40 MG TAB PO SCH (09:01)
[2021-07-04] MEDS: CAPSAICIN 0.025% CR 60 GM TOP SCH ×3 (09:04→19:56)
[2021-07-04] MEDS: NYSTATIN 100,000 UNITS/GM TOPICAL PWD 15 GM TOP SCH ×3 (09:04→19:56)
[2021-07-04 14:00] VITALS: BP 112/65
[2021-07-04] MEDS: QUEtiapine FUMARATE 25 MG TAB PO SCH (16:06)
[2021-07-04] MEDS: PERCOCET 5MG/325MG TAB PO PRN (16:06)
[2021-07-04] MEDS: ATORVASTATIN 20 MG TAB PO SCH (19:54)
[2021-07-05 06:00] VITALS: BP 148/75
[2021-07-05] MEDS: LACTOBACILLUS ACIDOPHILUS CAP (BACID) PO SCH ×4 (08:49→19:48)
[2021-07-05] MEDS: ASPIRIN 81 MG CHEW TABLET PO SCH (08:49)
[2021-07-05] MEDS: DIGOXIN 0.125 MG TAB PO SCH (08:49)
[2021-07-05] MEDS: bisoproloL fumarate 5 MG TAB PO SCH ×2 (08:49→19:50)
[2021-07-05] MEDS: MULTIVITAMINS/MINERALS THERAP 1 TAB PO SCH (08:49)
[2021-07-05] MEDS: APIXABAN 5 MG TAB (ELIQUIS) PO SCH ×2 (08:49→19:49)
[2021-07-05] MEDS: amLODIPine 5 MG TAB PO SCH ×2 (08:49→19:49)
[2021-07-05] MEDS: FAMOTIDINE 20 MG TAB PO SCH ×2 (08:49→19:49)
[2021-07-05] MEDS: FLECAINIDE 50MG TABLET PO SCH ×2 (08:49→19:49)
[2021-07-05] MEDS: SODIUM BICARBONATE 325 MG TAB PO SCH ×4 (08:49→19:48)
[2021-07-05] MEDS: buPROPion **XL** TABLET 150MG (WELLBUTRIN XL) PO SCH (08:50)
[2021-07-05] MEDS: FUROSEMIDE 40 MG TAB PO SCH (08:50)
[2021-07-05] MEDS: SUCRALFATE SUSP 1GM/10ML UD PO SCH ×2 (08:50→19:48)
[2021-07-05] MEDS: CAPSAICIN 0.025% CR 60 GM TOP SCH ×3 (08:52→19:48)
[2021-07-05] MEDS: NYSTATIN 100,000 UNITS/GM TOPICAL PWD 15 GM TOP SCH ×3 (08:52→19:50)
[2021-07-05] MEDS: PERCOCET 5MG/325MG TAB PO PRN (16:19)
[2021-07-05] MEDS: QUEtiapine FUMARATE 25 MG TAB PO SCH (16:20)
[2021-07-05] MEDS: ATORVASTATIN 20 MG TAB PO SCH (19:49)
[2021-07-05 21:00] VITALS: BP 120/56
[2021-07-06 08:01] VITALS: BP 140/62
[2021-07-06] MEDS: amLODIPine 5 MG TAB PO SCH ×2 (08:02→19:49)
[2021-07-06] MEDS: DIGOXIN 0.125 MG TAB PO SCH (08:03)
[2021-07-06] MEDS: buPROPion **XL** TABLET 150MG (WELLBUTRIN XL) PO SCH (08:03)
[2021-07-06] MEDS: MULTIVITAMINS/MINERALS THERAP 1 TAB PO SCH (08:03)
[2021-07-06] MEDS: LACTOBACILLUS ACIDOPHILUS CAP (BACID) PO SCH ×4 (08:03→19:48)
[2021-07-06] MEDS: FLECAINIDE 50MG TABLET PO SCH ×2 (08:03→19:49)
[2021-07-06] MEDS: FAMOTIDINE 20 MG TAB PO SCH ×2 (08:03→19:48)
[2021-07-06] MEDS: FUROSEMIDE 40 MG TAB PO SCH (08:03)
[2021-07-06] MEDS: APIXABAN 5 MG TAB (ELIQUIS) PO SCH ×2 (08:03→19:48)
[2021-07-06] MEDS: SODIUM BICARBONATE 325 MG TAB PO SCH ×4 (08:03→19:48)
[2021-07-06] MEDS: bisoproloL fumarate 5 MG TAB PO SCH ×2 (08:03→19:48)
[2021-07-06] MEDS: ASPIRIN 81 MG CHEW TABLET PO SCH (08:03)
[2021-07-06] MEDS: SUCRALFATE SUSP 1GM/10ML UD PO SCH ×2 (08:04→19:50)
[2021-07-06] MEDS: PERCOCET 5MG/325MG TAB PO PRN ×2 (08:05→22:29)
[2021-07-06] MEDS: CAPSAICIN 0.025% CR 60 GM TOP SCH ×3 (08:05→19:49)
[2021-07-06] MEDS: NYSTATIN 100,000 UNITS/GM TOPICAL PWD 15 GM TOP SCH ×3 (08:06→19:49)
[2021-07-06] MEDS: QUEtiapine FUMARATE 25 MG TAB PO SCH (16:13)
[2021-07-06] MEDS: OLANZapine 5 MG TAB PO PRN (19:47)
[2021-07-06] MEDS: ATORVASTATIN 20 MG TAB PO SCH (19:47)
[2021-07-07 06:00] VITALS: BP 170/79
[2021-07-07 08:39] LABS: BASO % 0.6 % (0.0-1.0); EOS # 0.3 10^3/uL (0.0-0.5); EOS % 6.5 % (0.0-3.0); HEMOGLOBIN 10.3 g/dl (12.0-15.5); LYMPH # 1.2 10^3/uL (1.5-5.0); MEAN CORPUSCULAR HEMOGLOBIN 31.3 pg (27.0-33.0); MEAN CORPUSCULAR HGB CONC 32.2 g/dl (32.0-36.5); MEAN CORPUSCULAR VOLUME 97.3 fl (80.0-96.0); MONO # 0.4 10^3/uL (0.0-0.8); MONO % 7.8 % (2.0-8.0); NEUTROPHILS # 2.8 10^3/uL (1.5-8.5); NEUTROPHILS % 59.9 % (36.0-66.0); PLATELET COUNT, AUTOMATED 223 10^3/uL (150-450); RED BLOOD COUNT 3.29 10^6/uL (4.00-5.40); WHITE BLOOD COUNT 4.6 10^3/uL (4.0-10.0)
[2021-07-07 09:09] LABS: CALCIUM LEVEL 11.1 MG/DL (8.8-10.2); CREATININE FOR GFR 1.09 MG/DL (0.55-1.30); GLOMERULAR FILTRATION RATE 53.5 (>45); MAGNESIUM LEVEL 2.3 MG/DL (1.8-2.4); POTASSIUM SERUM 4.4 MEQ/L (3.5-5.1)
[2021-07-07] MEDS: bisoproloL fumarate 5 MG TAB PO SCH ×2 (09:29→20:34)
[2021-07-07] MEDS: FUROSEMIDE 40 MG TAB PO SCH (09:29)
[2021-07-07] MEDS: SUCRALFATE SUSP 1GM/10ML UD PO SCH ×2 (09:29→20:32)
[2021-07-07] MEDS: FAMOTIDINE 20 MG TAB PO SCH ×2 (09:29→20:32)
[2021-07-07] MEDS: buPROPion **XL** TABLET 150MG (WELLBUTRIN XL) PO SCH (09:30)
[2021-07-07] MEDS: LACTOBACILLUS ACIDOPHILUS CAP (BACID) PO SCH ×4 (09:30→20:32)
[2021-07-07] MEDS: APIXABAN 5 MG TAB (ELIQUIS) PO SCH ×2 (09:30→20:32)
[2021-07-07] MEDS: amLODIPine 5 MG TAB PO SCH ×2 (09:30→20:33)
[2021-07-07] MEDS: ACETAMINOPHEN TAB 650MG DOSE (2X325MG) PO PRN ×2 (09:30→20:33)
[2021-07-07] MEDS: ASPIRIN 81 MG CHEW TABLET PO SCH (09:30)
[2021-07-07] MEDS: MULTIVITAMINS/MINERALS THERAP 1 TAB PO SCH (09:30)
[2021-07-07] MEDS: FLECAINIDE 50MG TABLET PO SCH ×2 (09:30→20:34)
[2021-07-07] MEDS: SODIUM BICARBONATE 325 MG TAB PO SCH ×4 (09:30→20:32)
[2021-07-07] MEDS: NYSTATIN 100,000 UNITS/GM TOPICAL PWD 15 GM TOP SCH ×3 (09:31→20:34)
[2021-07-07] MEDS: CAPSAICIN 0.025% CR 60 GM TOP SCH ×3 (09:31→20:32)
[2021-07-07] MEDS: DIGOXIN 0.125 MG TAB PO SCH (09:31)
[2021-07-07] MEDS: QUEtiapine FUMARATE 25 MG TAB PO SCH (17:42)
[2021-07-07] MEDS: ATORVASTATIN 20 MG TAB PO SCH (20:32)
[2021-07-08] MEDS: SODIUM BICARBONATE 325 MG TAB PO SCH ×4 (10:49→20:53)
[2021-07-08] MEDS: LACTOBACILLUS ACIDOPHILUS CAP (BACID) PO SCH ×4 (10:50→20:53)
[2021-07-08] MEDS: ASPIRIN 81 MG CHEW TABLET PO SCH (10:50)
[2021-07-08] MEDS: FLECAINIDE 50MG TABLET PO SCH ×2 (10:50→20:53)
[2021-07-08] MEDS: buPROPion **XL** TABLET 150MG (WELLBUTRIN XL) PO SCH (10:51)
[2021-07-08] MEDS: FAMOTIDINE 20 MG TAB PO SCH ×2 (10:51→20:54)
[2021-07-08] MEDS: DIGOXIN 0.125 MG TAB PO SCH (10:51)
[2021-07-08] MEDS: amLODIPine 5 MG TAB PO SCH ×2 (10:51→20:53)
[2021-07-08] MEDS: bisoproloL fumarate 5 MG TAB PO SCH ×2 (10:51→20:53)
[2021-07-08] MEDS: NYSTATIN 100,000 UNITS/GM TOPICAL PWD 15 GM TOP SCH ×3 (10:52→20:54)
[2021-07-08] MEDS: CAPSAICIN 0.025% CR 60 GM TOP SCH ×3 (10:52→20:55)
[2021-07-08] MEDS: APIXABAN 5 MG TAB (ELIQUIS) PO SCH ×2 (10:52→20:54)
[2021-07-08] MEDS: SUCRALFATE SUSP 1GM/10ML UD PO SCH ×2 (10:55→20:52)
[2021-07-08 11:10] VITALS: BP 148/76
[2021-07-08] MEDS: PERCOCET 5MG/325MG TAB PO PRN ×2 (11:58→20:54)
[2021-07-08] MEDS: QUEtiapine FUMARATE 25 MG TAB PO SCH (17:34)
[2021-07-08] MEDS: ATORVASTATIN 20 MG TAB PO SCH (20:54)
[2021-07-09 08:14] LABS: BASO % 0.4 % (0.0-1.0); EOS # 0.2 10^3/uL (0.0-0.5); EOS % 3.9 % (0.0-3.0); HEMATOCRIT 32.3 % (36.0-47.0); HEMOGLOBIN 10.3 g/dl (12.0-15.5); LYMPH # 1.2 10^3/uL (1.5-5.0); LYMPH % 25.4 % (24.0-44.0); MEAN CORPUSCULAR HEMOGLOBIN 31.4 pg (27.0-33.0); MEAN CORPUSCULAR HGB CONC 31.9 g/dl (32.0-36.5); MEAN CORPUSCULAR VOLUME 98.5 fl (80.0-96.0); MONO # 0.3 10^3/uL (0.0-0.8); MONO % 6.3 % (2.0-8.0); NEUTROPHILS # 2.9 10^3/uL (1.5-8.5); NEUTROPHILS % 63.6 % (36.0-66.0); PLATELET COUNT, AUTOMATED 230 10^3/uL (150-450); RED BLOOD COUNT 3.28 10^6/uL (4.00-5.40); WHITE BLOOD COUNT 4.6 10^3/uL (4.0-10.0)
[2021-07-09 08:40] LABS: ALBUMIN 2.7 GM/DL (3.2-5.2); BILIRUBIN,TOTAL 0.4 MG/DL (0.2-1.0); CALCIUM LEVEL 11.2 MG/DL (8.8-10.2); CREATININE FOR GFR 1.09 MG/DL (0.55-1.30); GLOMERULAR FILTRATION RATE 53.5 (>45); MAGNESIUM LEVEL 2.4 MG/DL (1.8-2.4); POTASSIUM SERUM 4.7 MEQ/L (3.5-5.1); TOTAL PROTEIN 8.2 GM/DL (6.4-8.2)
[2021-07-09] MEDS: amLODIPine 5 MG TAB PO SCH ×2 (09:00→21:00)
[2021-07-09] MEDS: LACTOBACILLUS ACIDOPHILUS CAP (BACID) PO SCH ×4 (09:29→21:01)
[2021-07-09 09:34] VITALS: BP 112/70
[2021-07-09] MEDS: SUCRALFATE SUSP 1GM/10ML UD PO SCH ×2 (09:36→20:56)
[2021-07-09] MEDS: APIXABAN 5 MG TAB (ELIQUIS) PO SCH ×2 (09:36→21:01)
[2021-07-09] MEDS: ASPIRIN 81 MG CHEW TABLET PO SCH (09:36)
[2021-07-09] MEDS: DIGOXIN 0.125 MG TAB PO SCH (09:37)
[2021-07-09] MEDS: FLECAINIDE 50MG TABLET PO SCH ×2 (09:37→21:01)
[2021-07-09] MEDS: FUROSEMIDE 40 MG TAB PO SCH (09:37)
[2021-07-09] MEDS: NYSTATIN 100,000 UNITS/GM TOPICAL PWD 15 GM TOP SCH ×3 (09:38→21:02)
[2021-07-09] MEDS: bisoproloL fumarate 5 MG TAB PO SCH ×2 (09:38→21:00)
[2021-07-09] MEDS: SODIUM BICARBONATE 325 MG TAB PO SCH ×4 (09:39→21:00)
[2021-07-09] MEDS: CAPSAICIN 0.025% CR 60 GM TOP SCH ×3 (09:39→21:02)
[2021-07-09] MEDS: FAMOTIDINE 20 MG TAB PO SCH ×2 (09:39→21:00)
[2021-07-09] MEDS: buPROPion **XL** TABLET 150MG (WELLBUTRIN XL) PO SCH (09:40)
[2021-07-09] MEDS: PERCOCET 5MG/325MG TAB PO PRN (09:48)
[2021-07-09] MEDS: QUEtiapine FUMARATE 25 MG TAB PO SCH (16:30)
[2021-07-09] MEDS: ATORVASTATIN 20 MG TAB PO SCH (21:00)
[2021-07-09] MEDS: ACETAMINOPHEN TAB 650MG DOSE (2X325MG) PO PRN (21:01)
[2021-07-10 05:46] VITALS: BP 148/70
[2021-07-10] MEDS: buPROPion **XL** TABLET 150MG (WELLBUTRIN XL) PO SCH (08:30)
[2021-07-10] MEDS: SUCRALFATE SUSP 1GM/10ML UD PO SCH ×2 (08:30→20:58)
[2021-07-10] MEDS: DIGOXIN 0.125 MG TAB PO SCH (08:31)
[2021-07-10] MEDS: SODIUM BICARBONATE 325 MG TAB PO SCH ×4 (08:31→21:00)
[2021-07-10] MEDS: APIXABAN 5 MG TAB (ELIQUIS) PO SCH ×2 (08:32→21:00)
[2021-07-10] MEDS: bisoproloL fumarate 5 MG TAB PO SCH ×2 (08:32→20:59)
[2021-07-10] MEDS: FUROSEMIDE 40 MG TAB PO SCH (08:32)
[2021-07-10] MEDS: FAMOTIDINE 20 MG TAB PO SCH ×2 (08:32→21:00)
[2021-07-10] MEDS: FLECAINIDE 50MG TABLET PO SCH ×2 (08:33→21:00)
[2021-07-10] MEDS: ASPIRIN 81 MG CHEW TABLET PO SCH (08:33)
[2021-07-10] MEDS: LACTOBACILLUS ACIDOPHILUS CAP (BACID) PO SCH ×4 (08:33→21:00)
[2021-07-10] MEDS: amLODIPine 5 MG TAB PO SCH ×2 (08:33→20:59)
[2021-07-10] MEDS: CAPSAICIN 0.025% CR 60 GM TOP SCH ×3 (08:37→21:01)
[2021-07-10] MEDS: NYSTATIN 100,000 UNITS/GM TOPICAL PWD 15 GM TOP SCH ×3 (08:37→21:00)
[2021-07-10] MEDS: QUEtiapine FUMARATE 25 MG TAB PO SCH (16:56)
[2021-07-10] MEDS: ATORVASTATIN 20 MG TAB PO SCH (20:58)
[2021-07-10] MEDS: ACETAMINOPHEN TAB 650MG DOSE (2X325MG) PO PRN (20:58)
[2021-07-11] MEDS: ASPIRIN 81 MG CHEW TABLET PO SCH (10:36)
[2021-07-11] MEDS: FAMOTIDINE 20 MG TAB PO SCH ×2 (10:36→19:50)
[2021-07-11] MEDS: FUROSEMIDE 40 MG TAB PO SCH (10:36)
[2021-07-11] MEDS: buPROPion **XL** TABLET 150MG (WELLBUTRIN XL) PO SCH (10:36)
[2021-07-11] MEDS: SUCRALFATE SUSP 1GM/10ML UD PO SCH ×2 (10:36→19:50)
[2021-07-11] MEDS: APIXABAN 5 MG TAB (ELIQUIS) PO SCH ×2 (10:37→19:50)
[2021-07-11] MEDS: SODIUM BICARBONATE 325 MG TAB PO SCH ×4 (10:37→19:51)
[2021-07-11] MEDS: LACTOBACILLUS ACIDOPHILUS CAP (BACID) PO SCH ×4 (10:37→19:51)
[2021-07-11] MEDS: FLECAINIDE 50MG TABLET PO SCH ×2 (10:37→19:51)
[2021-07-11] MEDS: DIGOXIN 0.125 MG TAB PO SCH (10:38)
[2021-07-11] MEDS: bisoproloL fumarate 5 MG TAB PO SCH ×2 (10:38→19:51)
[2021-07-11] MEDS: amLODIPine 5 MG TAB PO SCH ×2 (10:38→19:51)
[2021-07-11] MEDS: NYSTATIN 100,000 UNITS/GM TOPICAL PWD 15 GM TOP SCH ×3 (10:38→19:51)
[2021-07-11] MEDS: CAPSAICIN 0.025% CR 60 GM TOP SCH ×3 (10:39→19:52)
[2021-07-11 14:00] VITALS: BP 126/62
[2021-07-11] MEDS: QUEtiapine FUMARATE 25 MG TAB PO SCH (17:33)
[2021-07-11] MEDS: PERCOCET 5MG/325MG TAB PO PRN (19:50)
[2021-07-11] MEDS: ATORVASTATIN 20 MG TAB PO SCH (19:50)
[2021-07-12] MEDS: ACETAMINOPHEN TAB 650MG DOSE (2X325MG) PO PRN ×2 (01:09→19:40)
[2021-07-12 06:00] VITALS: BP 151/64
[2021-07-12] MEDS: ASPIRIN 81 MG CHEW TABLET PO SCH (08:09)
[2021-07-12] MEDS: SUCRALFATE SUSP 1GM/10ML UD PO SCH ×2 (08:09→19:40)
[2021-07-12] MEDS: FAMOTIDINE 20 MG TAB PO SCH ×2 (08:09→19:39)
[2021-07-12] MEDS: APIXABAN 5 MG TAB (ELIQUIS) PO SCH ×2 (08:09→19:40)
[2021-07-12] MEDS: LACTOBACILLUS ACIDOPHILUS CAP (BACID) PO SCH ×4 (08:09→19:39)
[2021-07-12] MEDS: FLECAINIDE 50MG TABLET PO SCH ×2 (08:09→19:38)
[2021-07-12] MEDS: buPROPion **XL** TABLET 150MG (WELLBUTRIN XL) PO SCH (08:09)
[2021-07-12] MEDS: FUROSEMIDE 40 MG TAB PO SCH (08:09)
[2021-07-12] MEDS: SODIUM BICARBONATE 325 MG TAB PO SCH ×4 (08:09→19:39)
[2021-07-12] MEDS: amLODIPine 5 MG TAB PO SCH ×2 (08:13→19:39)
[2021-07-12] MEDS: DIGOXIN 0.125 MG TAB PO SCH (08:13)
[2021-07-12] MEDS: bisoproloL fumarate 5 MG TAB PO SCH ×2 (08:13→19:38)
[2021-07-12] MEDS: CAPSAICIN 0.025% CR 60 GM TOP SCH ×3 (08:13→19:41)
[2021-07-12] MEDS: NYSTATIN 100,000 UNITS/GM TOPICAL PWD 15 GM TOP SCH ×3 (08:13→19:41)
[2021-07-12] MEDS: QUEtiapine FUMARATE 25 MG TAB PO SCH (17:20)
[2021-07-12] MEDS: ATORVASTATIN 20 MG TAB PO SCH (19:39)
[2021-07-12] MEDS ORDERED: OLANZapine 5 MG TAB PO ONE (20:00)
[2021-07-13] MEDS: SUCRALFATE SUSP 1GM/10ML UD PO SCH (08:09)
[2021-07-13] MEDS: buPROPion **XL** TABLET 150MG (WELLBUTRIN XL) PO SCH (08:10)
[2021-07-13] MEDS: SODIUM BICARBONATE 325 MG TAB PO SCH ×2 (08:10→12:25)
[2021-07-13] MEDS: FLECAINIDE 50MG TABLET PO SCH (08:11)
[2021-07-13] MEDS: ASPIRIN 81 MG CHEW TABLET PO SCH (08:11)
[2021-07-13] MEDS: APIXABAN 5 MG TAB (ELIQUIS) PO SCH (08:11)
[2021-07-13] MEDS: FAMOTIDINE 20 MG TAB PO SCH (08:11)
[2021-07-13] MEDS: LACTOBACILLUS ACIDOPHILUS CAP (BACID) PO SCH ×2 (08:11→12:25)
[2021-07-13] MEDS: DIGOXIN 0.125 MG TAB PO SCH (08:14)
[2021-07-13 08:15] VITALS: BP 106/68
[2021-07-13] MEDS: bisoproloL fumarate 5 MG TAB PO SCH (08:15)
[2021-07-13] MEDS: FUROSEMIDE 40 MG TAB PO SCH (08:15)
[2021-07-13] MEDS: amLODIPine 5 MG TAB PO SCH (08:15)
[2021-07-13] MEDS: NYSTATIN 100,000 UNITS/GM TOPICAL PWD 15 GM TOP SCH (09:18)
[2021-07-13] MEDS: CAPSAICIN 0.025% CR 60 GM TOP SCH (09:18)
[2021-07-13] MEDS ORDERED: PERCOCET PO (10:57)
[2021-07-13] MEDS ORDERED: ASPI81CH8 PO (10:57)
[2021-07-13] MEDS ORDERED: SODI325T9 PO (10:57)
[2021-07-13] MEDS ORDERED: AMLO1TAB24 PO (10:57)
[2021-07-13] MEDS ORDERED: QUET1TAB17 PO (10:57)
== END 2021-07-13 12:50 | DRG 308 ==
LOC: M LAB 15:42 → EDBD 15:42 → M ED 15:42 → UNDOADMIN 18:49 → M ED INP 18:49 → M PCU 05-13 11:44 → ENRESERV 05-13 12:08 → M ED 05-13 14:12 → M PCU 05-13 14:12 → M MS5PR 05-18 21:47
PROVIDERS: ADMIT Family Medicine; ATTEND Internal Medicine
DX: I48.91 Unspecified atrial fibrillation (principal); I50.33 Acute on chronic diastolic (congestive) heart failure; I63.9 Cerebral infarction, unspecified; I87.312 Chronic venous hypertension (idiopathic) with ulcer of left lower extremity; G93.40 Encephalopathy, unspecified; D61.818 Other pancytopenia; N39.0 Urinary tract infection, site not specified; E87.2 Acidosis; I11.0 Hypertensive heart disease with heart failure; F32.A Depression, unspecified; E05.90 Thyrotoxicosis, unspecified without thyrotoxic crisis or storm; Z79.01 Long term (current) use of anticoagulants; Z79.899 Other long term (current) drug therapy; Z88.6 Allergy status to analgesic agent; Z88.8 Allergy status to other drugs, medicaments and biological substances; I73.9 Peripheral vascular disease, unspecified; E66.9 Obesity, unspecified; Z87.891 Personal history of nicotine dependence; Z20.822 Contact with and (suspected) exposure to COVID-19; R74.01 Elevation of levels of liver transaminase levels; Z91.14 Patient's other noncompliance with medication regimen; K21.9 Gastro-esophageal reflux disease without esophagitis; I25.10 Atherosclerotic heart disease of native coronary artery without angina pectoris; I45.4 Nonspecific intraventricular block; E83.52 Hypercalcemia; D47.2 Monoclonal gammopathy; F01.50 Vascular dementia, unspecified severity, without behavioral disturbance, psychotic disturbance, mood disturbance, and anxiety; G30.9 Alzheimer's disease, unspecified; Z86.718 Personal history of other venous thrombosis and embolism; Z86.711 Personal history of pulmonary embolism

== ENCOUNTER → 2021-07-21 | Outpatient (REF) | payer MEDICARE, OTHER, MEDICAID ==
[~2021-07-21] MED LIST changes: +AMLO1TAB24 PO; +AMOX875T2 PO; +ASPI81CH8 PO; +NYST10006 TOP; +PERCOCET PO; +QUET1TAB17 PO; +RISATAB3 PO; +SODI325T9 PO; +SUCR1ORA PO
[2021-07-21 11:59] LABS: HEMATOCRIT 33.6 % (36.0-47.0); HEMOGLOBIN 10.7 g/dl (12.0-15.5); MEAN CORPUSCULAR HEMOGLOBIN 32.3 pg (27.0-33.0); MEAN CORPUSCULAR HGB CONC 31.8 g/dl (32.0-36.5); MEAN CORPUSCULAR VOLUME 101.5 fl (80.0-96.0); PLATELET COUNT, AUTOMATED 209 10^3/uL (150-450); RED BLOOD COUNT 3.31 10^6/uL (4.00-5.40); WHITE BLOOD COUNT 4.5 10^3/uL (4.0-10.0)
[2021-07-21 12:31] LABS: BLOOD UREA NITROGEN 18 MG/DL (7-18); CALCIUM LEVEL 11.1 MG/DL (8.8-10.2); CARBON DIOXIDE LEVEL 29 MEQ/L (21-32); CHLORIDE LEVEL 108 MEQ/L (98-107); CREATININE FOR GFR 0.91 MG/DL (0.55-1.30); FREE T4 0.96 NG/DL (0.76-1.46); GLOMERULAR FILTRATION RATE > 60.0 (>45); GLUCOSE, FASTING 118 MG/DL (70-100); POTASSIUM SERUM 4.7 MEQ/L (3.5-5.1); SODIUM LEVEL 143 MEQ/L (136-145)
== END ==
LOC: SKLAB6 07:00
PROVIDERS: ATTEND Internal Medicine
DX: E05.90 Thyrotoxicosis, unspecified without thyrotoxic crisis or storm (principal); D64.9 Anemia, unspecified

== ENCOUNTER → 2021-08-04 | Outpatient (REF) | payer MEDICARE, OTHER, MEDICAID ==
[2021-08-04 15:05] LABS: CALCIUM LEVEL 10.2 MG/DL (8.8-10.2); CREATININE FOR GFR 1.14 MG/DL (0.55-1.30); GLOMERULAR FILTRATION RATE 50.8 (>45); POTASSIUM SERUM 4.5 MEQ/L (3.5-5.1)
== END ==
LOC: SKLAB6 13:59
PROVIDERS: ATTEND Internal Medicine
DX: R60.9 Edema, unspecified (principal)

== ENCOUNTER → 2021-08-06 | Outpatient (REF) | payer MEDICARE, OTHER, MEDICAID ==
[2021-08-06 13:14] LABS: BLOOD UREA NITROGEN 33 MG/DL (7-18); CARBON DIOXIDE LEVEL 29 MEQ/L (21-32); CHLORIDE LEVEL 109 MEQ/L (98-107); CREATININE FOR GFR 0.98 MG/DL (0.55-1.30); GLOMERULAR FILTRATION RATE > 60.0 (>45); GLUCOSE, FASTING 103 MG/DL (70-100); POTASSIUM SERUM 4.5 MEQ/L (3.5-5.1); SODIUM LEVEL 141 MEQ/L (136-145)
== END ==
LOC: SKLAB6 08:23
PROVIDERS: ATTEND Internal Medicine
DX: I10 Essential (primary) hypertension (principal)

== ENCOUNTER → 2021-08-10 | Outpatient (REF) | payer MEDICARE, OTHER, MEDICAID | LOC: SKLAB6 10:51 | PROVIDERS: ATTEND Internal Medicine | DX: R60.9 Edema, unspecified (principal) ==

== ENCOUNTER → 2021-08-26 | Outpatient (REF) | payer MEDICARE, OTHER, MEDICAID ==
[2021-08-26 11:06] LABS: HEMATOCRIT 28.5 % (36.0-47.0); HEMOGLOBIN 9.3 g/dl (12.0-15.5); MEAN CORPUSCULAR HEMOGLOBIN 32.2 pg (27.0-33.0); MEAN CORPUSCULAR HGB CONC 32.6 g/dl (32.0-36.5); MEAN CORPUSCULAR VOLUME 98.6 fl (80.0-96.0); PLATELET COUNT, AUTOMATED 209 10^3/uL (150-450); RED BLOOD COUNT 2.89 10^6/uL (4.00-5.40); WHITE BLOOD COUNT 4.9 10^3/uL (4.0-10.0)
[2021-08-26 11:37] LABS: CREATININE FOR GFR 1.03 MG/DL (0.55-1.30); GLOMERULAR FILTRATION RATE 57.1 (>45); POTASSIUM SERUM 4.3 MEQ/L (3.5-5.1)
== END ==
LOC: SKLAB6 07:00
PROVIDERS: ATTEND Internal Medicine
DX: F03.90 Unspecified dementia, unspecified severity, without behavioral disturbance, psychotic disturbance, mood disturbance, and anxiety (principal)

== ENCOUNTER → 2021-08-26 | Outpatient (REF) | payer MEDICARE, OTHER, MEDICAID ==
[2021-08-26 14:43] LABS: APPEARANCE, URINE CLEAR (CLEAR); BACTERIA, URINE AUTO 1+ (NEGATIVE); BILIRUBIN, URINE AUTO NEGATIVE (NEGATIVE); BLOOD, URINE BLOOD NEGATIVE (NEGATIVE); COLOR, URINE YELLOW (YELLOW); GLUCOSE, URINE (UA) AUTO NEGATIVE (NEGATIVE); KETONE, URINE AUTO NEGATIVE (NEGATIVE); LEUKOCYTE ESTERASE, URINE AUTO NEGATIVE (NEGATIVE); NITRITE, URINE AUTO NEGATIVE (NEGATIVE); PROTEIN, URINE AUTO NEGATIVE (NEGATIVE); RBC, URINE AUTO 0 /HPF (0-3); SPECIFIC GRAVITY URINE AUTO 1.009 (1.002-1.035); SQUAMOUS EPITHELIAL CELL UR AU 1 /HPF (0-6); UROBILINOGEN, URINE AUTO 0.2 mg/dL (0.0-2.0); WBC, URINE AUTO 0 /HPF (0-3)
== END ==
LOC: SKLAB6 13:13
PROVIDERS: ATTEND Internal Medicine
DX: R06.02 Shortness of breath (principal); I51.7 Cardiomegaly; Z79.899 Other long term (current) drug therapy

== ENCOUNTER → 2021-09-28 | Outpatient (REF) | payer MEDICARE, OTHER, MEDICAID ==
[2021-09-28 10:32] LABS: FREE T4 1.03 NG/DL (0.76-1.46); THYROID STIMULATING HORMONE 0.271 uIU/ML (0.358-3.740)
== END ==
LOC: SKLAB6 07:49
PROVIDERS: ATTEND Internal Medicine
DX: E05.90 Thyrotoxicosis, unspecified without thyrotoxic crisis or storm (principal)

== ENCOUNTER → 2021-10-08 | Outpatient (REF) | payer MEDICARE, OTHER, MEDICAID ==
[2021-10-08 08:18] LABS: BASO % 0.6 % (0.0-1.0); EOS # 0.2 10^3/uL (0.0-0.5); EOS % 3.7 % (0.0-3.0); HEMOGLOBIN 10.6 g/dl (12.0-15.5); LYMPH % 21.2 % (24.0-44.0); MEAN CORPUSCULAR HEMOGLOBIN 32.9 pg (27.0-33.0); MEAN CORPUSCULAR HGB CONC 32.1 g/dl (32.0-36.5); MEAN CORPUSCULAR VOLUME 102.5 fl (80.0-96.0); MONO # 0.4 10^3/uL (0.0-0.8); NEUTROPHILS # 3.1 10^3/uL (1.5-8.5); NEUTROPHILS % 66.3 % (36.0-66.0); PLATELET COUNT, AUTOMATED 205 10^3/uL (150-450); RED BLOOD COUNT 3.22 10^6/uL (4.00-5.40); WHITE BLOOD COUNT 4.6 10^3/uL (4.0-10.0)
== END ==
LOC: SKLAB6 08:00
PROVIDERS: ATTEND Internal Medicine
DX: D64.9 Anemia, unspecified (principal)

== ENCOUNTER → 2021-10-15 | Outpatient (REF) | payer MEDICARE, OTHER, MEDICAID ==
[~2021-10-15] MED LIST changes: +CAPS42.54 TOP
[2021-10-15 11:01] LABS: IMMUNOGLOBULIN G 476 MG/DL (681-1648); IMMUNOGLOBULIN M 19.5 MG/DL (40-230); TOTAL PROTEIN 7.6 GM/DL (6.4-8.2)
[2021-10-20 13:54] LABS: ALBUMIN 2.93 GM/DL (3.29-5.55); ALBUMIN % 38.6 % (55.8-66.1); ALPHA-1-GLOBULIN % 3.1 % (2.9-4.9); ALPHA-2-GLOBULINS % 7.7 % (7.1-11.8); BETA-1-GLOBULINS % 4.1 % (4.7-7.2); BETA-2-GLOBULINS % 40.3 % (3.2-6.5); GAMMA GLOBULIN % 6.2 % (11.1-18.8)
[2021-10-20 13:55] LABS: ALPHA-1-GLOBULINS 0.24 GM/DL (0.17-0.41); ALPHA-2-GLOBULINS 0.59 GM/DL (0.42-0.99); BETA-1-GLOBULINS 0.31 GM/DL (0.28-0.60); BETA-2-GLOBULINS 3.06 GM/DL (0.19-0.55); GAMMA GLOBULINS 0.47 GM/DL (0.65-1.58)
== END ==
LOC: SKLAB6 08:00
PROVIDERS: ATTEND Internal Medicine
DX: D47.2 Monoclonal gammopathy (principal)

== ENCOUNTER → 2021-12-17 | Outpatient (REF) | payer MEDICARE, OTHER ==
[2021-12-17 10:55] LABS: BASO % 0.3 % (0.0-1.0); EOS # 0.1 10^3/uL (0.0-0.5); EOS % 1.9 % (0.0-3.0); HEMATOCRIT 34.2 % (36.0-47.0); HEMOGLOBIN 10.9 g/dl (12.0-15.5); LYMPH # 1.2 10^3/uL (1.5-5.0); LYMPH % 20.6 % (24.0-44.0); MEAN CORPUSCULAR HEMOGLOBIN 32.2 pg (27.0-33.0); MEAN CORPUSCULAR HGB CONC 31.9 g/dl (32.0-36.5); MEAN CORPUSCULAR VOLUME 100.9 fl (80.0-96.0); MONO # 0.4 10^3/uL (0.0-0.8); MONO % 6.6 % (2.0-8.0); NEUTROPHILS # 4.1 10^3/uL (1.5-8.5); NEUTROPHILS % 70.3 % (36.0-66.0); PLATELET COUNT, AUTOMATED 212 10^3/uL (150-450); RED BLOOD COUNT 3.39 10^6/uL (4.00-5.40); WHITE BLOOD COUNT 5.8 10^3/uL (4.0-10.0)
[2021-12-17 11:46] LABS: FREE T4 1.07 NG/DL (0.76-1.46); THYROID STIMULATING HORMONE 0.872 uIU/ML (0.358-3.740)
== END ==
LOC: SKLAB6 07:00
PROVIDERS: ATTEND Internal Medicine
DX: E05.90 Thyrotoxicosis, unspecified without thyrotoxic crisis or storm (principal)

== ENCOUNTER → 2022-01-14 | Outpatient (REF) | payer MEDICARE ==
[~2022-01-14] MED LIST changes: +MAPA500C PO; +PROBCAP14 PO
[2022-01-14 10:41] LABS: ALBUMIN 2.8 GM/DL (3.2-5.2); BILIRUBIN,TOTAL 0.4 MG/DL (0.2-1.0); CALCIUM LEVEL 10.7 MG/DL (8.8-10.2); CHOLESTEROL RISK RATIO 2.145 (<5); CREATININE FOR GFR 1.1 MG/DL (0.55-1.30); DIGOXIN LEVEL 0.9 NG/ML (0.5-2.0); GLOMERULAR FILTRATION RATE 52.7 (>45); POTASSIUM SERUM 4.4 MEQ/L (3.5-5.1); TOTAL PROTEIN 8.1 GM/DL (6.4-8.2)
== END ==
LOC: SKLAB6 07:00
PROVIDERS: ATTEND Internal Medicine
DX: Z79.899 Other long term (current) drug therapy (principal); E78.5 Hyperlipidemia, unspecified

== ENCOUNTER → 2022-01-18 | Outpatient (REF) | payer MEDICARE ==
[2022-01-18 09:13] LABS: BASO % 0.7 % (0.0-1.0); EOS # 0.1 10^3/uL (0.0-0.5); EOS % 2.4 % (0.0-3.0); HEMATOCRIT 33.8 % (36.0-47.0); HEMOGLOBIN 10.6 g/dl (12.0-15.5); LYMPH # 1.2 10^3/uL (1.5-5.0); LYMPH % 25.8 % (24.0-44.0); MEAN CORPUSCULAR HEMOGLOBIN 32.4 pg (27.0-33.0); MEAN CORPUSCULAR HGB CONC 31.4 g/dl (32.0-36.5); MEAN CORPUSCULAR VOLUME 103.4 fl (80.0-96.0); MONO # 0.3 10^3/uL (0.0-0.8); MONO % 6.6 % (2.0-8.0); NEUTROPHILS # 2.9 10^3/uL (1.5-8.5); NEUTROPHILS % 64.3 % (36.0-66.0); PLATELET COUNT, AUTOMATED 217 10^3/uL (150-450); RED BLOOD COUNT 3.27 10^6/uL (4.00-5.40); WHITE BLOOD COUNT 4.5 10^3/uL (4.0-10.0)
[2022-01-18 10:50] LABS: IMMUNOGLOBULIN G 562 MG/DL (681-1648); IMMUNOGLOBULIN M 8.2 MG/DL (40-230); TOTAL PROTEIN 8.5 GM/DL (6.4-8.2)
[2022-01-19 11:50] LABS: ALBUMIN % 39.3 % (55.8-66.1); ALPHA-1-GLOBULIN % 3.3 % (2.9-4.9); ALPHA-2-GLOBULINS % 8.5 % (7.1-11.8)
[2022-01-19 11:51] LABS: ALBUMIN 3.34 GM/DL (3.29-5.55); ALPHA-1-GLOBULINS 0.28 GM/DL (0.17-0.41); ALPHA-2-GLOBULINS 0.72 GM/DL (0.42-0.99); BETA-1-GLOBULINS 0.39 GM/DL (0.28-0.60); BETA-1-GLOBULINS % 4.6 % (4.7-7.2); BETA-2-GLOBULINS 3.21 GM/DL (0.19-0.55); BETA-2-GLOBULINS % 37.8 % (3.2-6.5); GAMMA GLOBULIN % 6.5 % (11.1-18.8); GAMMA GLOBULINS 0.55 GM/DL (0.65-1.58)
[2022-01-23 18:07] LABS: BETA-2 GLYCOPROTEIN I ABY IGA 10 (0-25); BETA-2 GLYCOPROTEIN I ABY IGG <9 (0-20); BETA-2 GLYCOPROTEIN I ABY IGM <9 (0-32); FREE KAPPA LIGHT CHAINS SERUM 11.7 mg/L (3.3-19.4); FREE LAMBDA LIGHT CHAINS SERUM 686.8 mg/L (5.7-26.3); KAPPA/LAMBDA RATIO SERUM 0.02 (0.26-1.65); SERUM VISCOSITY 2.2 rel.saline (1.4-2.1)
== END ==
LOC: SKLAB6 07:00
PROVIDERS: ATTEND Internal Medicine
DX: D47.2 Monoclonal gammopathy (principal)

== ENCOUNTER → 2022-01-20 | Outpatient (REF) | payer MEDICARE ==
[~2022-01-20] MED LIST changes: -MAPA500C PO; -PROBCAP14 PO
== END ==
LOC: M LAB REF 11:56
PROVIDERS: ATTEND Internal Medicine Hematology & Oncology
DX: D47.2 Monoclonal gammopathy (principal)

== ENCOUNTER → 2022-01-20 | Outpatient (REF) | payer MEDICARE ==
[~2022-01-20] MED LIST changes: -DOXY-350 PO; +DOXY-444 PO; +MAPA500C PO; +PROBCAP14 PO
[2022-01-21 17:08] LABS: FREE KAPPA LIGHT CHAINS SERUM 11.2 mg/L (3.3-19.4); FREE LAMBDA LIGHT CHAINS SERUM 571.2 mg/L (5.7-26.3); KAPPA/LAMBDA RATIO SERUM 0.02 (0.26-1.65)
== END ==
LOC: SKLAB6 07:00
PROVIDERS: ATTEND Internal Medicine
DX: D47.2 Monoclonal gammopathy (principal)

== ENCOUNTER → 2022-02-11 | Outpatient (REF) | payer MEDICARE, OTHER ==
[2022-02-11 08:24] LABS: BASO % 0.5 % (0.0-1.0); EOS # 0.1 10^3/uL (0.0-0.5); EOS % 2.5 % (0.0-3.0); HEMATOCRIT 32.7 % (36.0-47.0); HEMOGLOBIN 10.6 g/dl (12.0-15.5); LYMPH # 0.9 10^3/uL (1.5-5.0); LYMPH % 21.1 % (24.0-44.0); MEAN CORPUSCULAR HEMOGLOBIN 32.7 pg (27.0-33.0); MEAN CORPUSCULAR HGB CONC 32.4 g/dl (32.0-36.5); MEAN CORPUSCULAR VOLUME 100.9 fl (80.0-96.0); MONO # 0.3 10^3/uL (0.0-0.8); MONO % 6.4 % (2.0-8.0); NEUTROPHILS % 69.3 % (36.0-66.0); PLATELET COUNT, AUTOMATED 198 10^3/uL (150-450); RED BLOOD COUNT 3.24 10^6/uL (4.00-5.40); WHITE BLOOD COUNT 4.4 10^3/uL (4.0-10.0)
== END ==
LOC: SKLAB6 07:00
PROVIDERS: ATTEND Internal Medicine
DX: D64.9 Anemia, unspecified (principal)

== ENCOUNTER → 2022-02-16 | Outpatient (CLI) | payer MEDICARE, OTHER | LOC: M RAD 09:04 | PROVIDERS: ATTEND Internal Medicine Hematology & Oncology | DX: D47.2 Monoclonal gammopathy (principal); Z87.81 Personal history of (healed) traumatic fracture; M47.818 Spondylosis without myelopathy or radiculopathy, sacral and sacrococcygeal region; E05.90 Thyrotoxicosis, unspecified without thyrotoxic crisis or storm; I31.39 Other pericardial effusion (noninflammatory); I70.0 Atherosclerosis of aorta; I25.10 Atherosclerotic heart disease of native coronary artery without angina pectoris; Z90.49 Acquired absence of other specified parts of digestive tract; D35.01 Benign neoplasm of right adrenal gland; D35.02 Benign neoplasm of left adrenal gland; R92.1 Mammographic calcification found on diagnostic imaging of breast; J47.9 Bronchiectasis, uncomplicated ==

== ENCOUNTER → 2022-02-17 | Outpatient (REF) | payer MEDICARE, OTHER ==
[2022-02-17 11:58] LABS: BASO % 0.3 % (0.0-1.0); EOS # 0.1 10^3/uL (0.0-0.5); EOS % 1.7 % (0.0-3.0); HEMATOCRIT 31.4 % (36.0-47.0); HEMOGLOBIN 10.1 g/dl (12.0-15.5); LYMPH # 1.2 10^3/uL (1.5-5.0); LYMPH % 20.9 % (24.0-44.0); MEAN CORPUSCULAR HEMOGLOBIN 32.8 pg (27.0-33.0); MEAN CORPUSCULAR HGB CONC 32.2 g/dl (32.0-36.5); MEAN CORPUSCULAR VOLUME 101.9 fl (80.0-96.0); MONO # 0.5 10^3/uL (0.0-0.8); MONO % 7.9 % (2.0-8.0); PLATELET COUNT, AUTOMATED 188 10^3/uL (150-450); RED BLOOD COUNT 3.08 10^6/uL (4.00-5.40); WHITE BLOOD COUNT 5.8 10^3/uL (4.0-10.0)
[2022-02-17 12:47] LABS: ALBUMIN 3.1 G/DL (3.2-5.2); ALT/SGPT 17 U/L (7.0-40); BILIRUBIN,TOTAL 0.4 MG/DL (0.3-1.2); BLOOD UREA NITROGEN 32 MG/DL (9-23); CALCIUM LEVEL 10.5 MG/DL (8.3-10.6); CARBON DIOXIDE LEVEL 27 MMOL/L (20-31); CHLORIDE LEVEL 104 MMOL/L (98-107); CREATININE FOR GFR 0.87 MG/DL (0.55-1.30); GLOMERULAR FILTRATION RATE > 60.0 (>45); GLUCOSE, FASTING 97 MG/DL (74-106); IMMUNOGLOBULIN A 2659.2 MG/DL (40-350); IMMUNOGLOBULIN G 573 MG/DL (650-1600); IMMUNOGLOBULIN M 20.99999 MG/DL (50-300); POTASSIUM SERUM 4.6 MMOL/L (3.5-5.1); SODIUM LEVEL 141 MMOL/L (136-145); TOTAL PROTEIN 7.7 G/DL (5.7-8.2); TOTAL PROTEIN 7.7 GM/DL (6.4-8.2)
[2022-02-19 04:10] LABS: BETA-2 GLYCOPROTEIN I ABY IGA 11 (0-25); BETA-2 GLYCOPROTEIN I ABY IGG <9 (0-20); BETA-2 GLYCOPROTEIN I ABY IGM <9 (0-32)
== END ==
LOC: SKLAB6 10:37
PROVIDERS: ATTEND Internal Medicine
DX: C80.1 Malignant (primary) neoplasm, unspecified (principal)

== ENCOUNTER → 2022-02-18 | Outpatient (CLI) | payer MEDICARE, OTHER ==
[~2022-02-18] MED LIST changes: +LIDOCAINE 1% MDV 20ML VIAL As Ordered ONE
[2022-02-18 13:33] LABS: BASO % 0.4 % (0.0-1.0); EOS # 0.1 10^3/uL (0.0-0.5); EOS % 1.9 % (0.0-3.0); HEMATOCRIT 31.2 % (36.0-47.0); HEMOGLOBIN 9.9 g/dl (12.0-15.5); LYMPH # 1.1 10^3/uL (1.5-5.0); LYMPH % 21.1 % (24.0-44.0); MEAN CORPUSCULAR HGB CONC 31.7 g/dl (32.0-36.5); MONO # 0.4 10^3/uL (0.0-0.8); MONO % 8.4 % (2.0-8.0); NEUTROPHILS # 3.5 10^3/uL (1.5-8.5); PLATELET COUNT, AUTOMATED 182 10^3/uL (150-450); RED BLOOD COUNT 3.09 10^6/uL (4.00-5.40); WHITE BLOOD COUNT 5.2 10^3/uL (4.0-10.0)
[2022-02-18 13:54] VITALS: BP 135/63
== END ==
LOC: M IRPRO 12:45
PROVIDERS: ATTEND Internal Medicine Hematology & Oncology
DX: D47.2 Monoclonal gammopathy (principal)

== ENCOUNTER → 2022-02-24 | Outpatient (REF) | payer MEDICARE, OTHER ==
[~2022-02-24] MED LIST changes: -LIDOCAINE 1% MDV 20ML VIAL As Ordered ONE
== END ==
LOC: SKLAB6 07:00
PROVIDERS: ATTEND Internal Medicine
DX: D47.2 Monoclonal gammopathy (principal)

== ENCOUNTER → 2022-03-11 | Outpatient (REF) | payer MEDICARE, OTHER ==
[2022-03-11 08:20] LABS: THYROID STIMULATING HORMONE 1.053 uIU/ML (0.55-4.78)
[2022-03-11 08:21] LABS: FREE T4 1.26 NG/DL (0.89-1.76)
== END ==
LOC: SKLAB6 07:00
PROVIDERS: ATTEND Internal Medicine
DX: E05.90 Thyrotoxicosis, unspecified without thyrotoxic crisis or storm (principal)

== ENCOUNTER → 2022-03-23 | Outpatient (REF) ==
[2022-03-23 19:37] LABS: HEMATOCRIT 30.6 % (36.0-47.0); HEMOGLOBIN 10.1 g/dl (12.0-15.5); MEAN CORPUSCULAR HEMOGLOBIN 32.6 pg (27.0-33.0); MEAN CORPUSCULAR VOLUME 98.7 fl (80.0-96.0); PLATELET COUNT, AUTOMATED 146 10^3/uL (150-450); WHITE BLOOD COUNT 3.3 10^3/uL (4.0-10.0)
[2022-03-23 20:11] LABS: ALBUMIN 2.9 G/DL (3.2-5.2); ALKALINE PHOSPHATASE 86 U/L (46-116); ALT/SGPT 28 U/L (7.0-40); AST/SGOT 29 U/L (<34); BILIRUBIN,TOTAL 0.3 MG/DL (0.3-1.2); BLOOD UREA NITROGEN 28 MG/DL (9-23); CALCIUM LEVEL 9.6 MG/DL (8.3-10.6); CARBON DIOXIDE LEVEL 22 MMOL/L (20-31); CHLORIDE LEVEL 106 MMOL/L (98-107); CREATININE FOR GFR 0.94 MG/DL (0.55-1.30); GLOMERULAR FILTRATION RATE > 60.0 (>45); GLUCOSE, FASTING 165 MG/DL (74-106); POTASSIUM SERUM 3.7 MMOL/L (3.5-5.1); SODIUM LEVEL 140 MMOL/L (136-145); TOTAL PROTEIN 7.5 G/DL (5.7-8.2)
== END ==
LOC: SKLAB6 18:00
PROVIDERS: ATTEND Neuromusculoskeletal Medicine & OMM
DX: U07.1 COVID-19 (principal)

== ENCOUNTER → 2022-03-25 | Outpatient (REF) | payer MEDICARE, OTHER ==
[2022-03-25 08:17] LABS: HEMATOCRIT 34.3 % (36.0-47.0); HEMOGLOBIN 11.2 g/dl (12.0-15.5); MEAN CORPUSCULAR HEMOGLOBIN 32.5 pg (27.0-33.0); MEAN CORPUSCULAR HGB CONC 32.7 g/dl (32.0-36.5); MEAN CORPUSCULAR VOLUME 99.4 fl (80.0-96.0); PLATELET COUNT, AUTOMATED 137 10^3/uL (150-450); RED BLOOD COUNT 3.45 10^6/uL (4.00-5.40); WHITE BLOOD COUNT 3.3 10^3/uL (4.0-10.0)
[2022-03-25 08:38] LABS: ALBUMIN 2.8 G/DL (3.2-5.2); ALKALINE PHOSPHATASE 85 U/L (46-116); ALT/SGPT 37 U/L (7.0-40); AST/SGOT 35 U/L (<34); BILIRUBIN,TOTAL 0.3 MG/DL (0.3-1.2); BLOOD UREA NITROGEN 15 MG/DL (9-23); CARBON DIOXIDE LEVEL 26 MMOL/L (20-31); CHLORIDE LEVEL 105 MMOL/L (98-107); CREATININE FOR GFR 0.75 MG/DL (0.55-1.30); GLOMERULAR FILTRATION RATE > 60.0 (>45); GLUCOSE, FASTING 98 MG/DL (74-106); POTASSIUM SERUM 3.8 MMOL/L (3.5-5.1); SODIUM LEVEL 141 MMOL/L (136-145); TOTAL PROTEIN 7.6 G/DL (5.7-8.2)
== END ==
LOC: SKLAB8 09:45
PROVIDERS: ATTEND Nurse Practitioner Family
DX: U07.1 COVID-19 (principal); Z79.899 Other long term (current) drug therapy

== ENCOUNTER → 2022-03-30 | Outpatient (REF) | payer MEDICARE, OTHER ==
[2022-03-29 12:57] LABS: HEMATOCRIT 32.9 % (36.0-47.0); HEMOGLOBIN 10.4 g/dl (12.0-15.5); MEAN CORPUSCULAR HEMOGLOBIN 32.2 pg (27.0-33.0); MEAN CORPUSCULAR HGB CONC 31.6 g/dl (32.0-36.5); MEAN CORPUSCULAR VOLUME 101.9 fl (80.0-96.0); PLATELET COUNT, AUTOMATED 142 10^3/uL (150-450); RED BLOOD COUNT 3.23 10^6/uL (4.00-5.40); WHITE BLOOD COUNT 2.8 10^3/uL (4.0-10.0)
[2022-03-29 13:19] LABS: ALKALINE PHOSPHATASE 79 U/L (46-116); ALT/SGPT 28 U/L (7.0-40); AST/SGOT 25 U/L (<34); BILIRUBIN,TOTAL 0.2 MG/DL (0.3-1.2); BLOOD UREA NITROGEN 33 MG/DL (9-23); CALCIUM LEVEL 9.8 MG/DL (8.3-10.6); CARBON DIOXIDE LEVEL 23 MMOL/L (20-31); CHLORIDE LEVEL 108 MMOL/L (98-107); CREATININE FOR GFR 0.86 MG/DL (0.55-1.30); GLOMERULAR FILTRATION RATE > 60.0 (>45); GLUCOSE, FASTING 92 MG/DL (74-106); POTASSIUM SERUM 4.2 MMOL/L (3.5-5.1); SODIUM LEVEL 143 MMOL/L (136-145); TOTAL PROTEIN 7.8 G/DL (5.7-8.2)
== END ==
LOC: SKLAB8 09:51
PROVIDERS: ATTEND Nurse Practitioner Family
DX: U07.1 COVID-19 (principal); Z79.899 Other long term (current) drug therapy

== ENCOUNTER → 2022-04-01 | Outpatient (REF) | payer MEDICARE, OTHER ==
[2022-04-01 14:51] LABS: HEMATOCRIT 32.1 % (36.0-47.0); HEMOGLOBIN 10.3 g/dl (12.0-15.5); MEAN CORPUSCULAR HEMOGLOBIN 32.3 pg (27.0-33.0); MEAN CORPUSCULAR HGB CONC 32.1 g/dl (32.0-36.5); MEAN CORPUSCULAR VOLUME 100.6 fl (80.0-96.0); PLATELET COUNT, AUTOMATED 182 10^3/uL (150-450); RED BLOOD COUNT 3.19 10^6/uL (4.00-5.40); WHITE BLOOD COUNT 4.6 10^3/uL (4.0-10.0)
[2022-04-01 15:15] LABS: ALBUMIN 2.8 G/DL (3.2-5.2); ALKALINE PHOSPHATASE 85 U/L (46-116); ALT/SGPT 35 U/L (7.0-40); AST/SGOT 31 U/L (<34); BILIRUBIN,TOTAL 0.4 MG/DL (0.3-1.2); BLOOD UREA NITROGEN 26 MG/DL (9-23); CALCIUM LEVEL 10.2 MG/DL (8.3-10.6); CARBON DIOXIDE LEVEL 26 MMOL/L (20-31); CHLORIDE LEVEL 105 MMOL/L (98-107); CREATININE FOR GFR 0.92 MG/DL (0.55-1.30); GLOMERULAR FILTRATION RATE > 60.0 (>45); GLUCOSE, FASTING 119 MG/DL (74-106); POTASSIUM SERUM 4.6 MMOL/L (3.5-5.1); SODIUM LEVEL 141 MMOL/L (136-145); TOTAL PROTEIN 7.7 G/DL (5.7-8.2)
== END ==
LOC: SKLAB8 09:37
PROVIDERS: ATTEND Nurse Practitioner Family
DX: U07.1 COVID-19 (principal); Z79.899 Other long term (current) drug therapy

== ENCOUNTER → 2022-04-15 | Outpatient (REF) | payer MEDICARE, OTHER ==
[2022-04-15 08:17] LABS: BASO % 0.4 % (0.0-1.0); EOS # 0.1 10^3/uL (0.0-0.5); HEMATOCRIT 30.7 % (36.0-47.0); HEMOGLOBIN 9.9 g/dl (12.0-15.5); LYMPH % 20.7 % (24.0-44.0); MEAN CORPUSCULAR HEMOGLOBIN 32.4 pg (27.0-33.0); MEAN CORPUSCULAR HGB CONC 32.2 g/dl (32.0-36.5); MEAN CORPUSCULAR VOLUME 100.3 fl (80.0-96.0); MONO # 0.5 10^3/uL (0.0-0.8); NEUTROPHILS # 3.3 10^3/uL (1.5-8.5); NEUTROPHILS % 66.7 % (36.0-66.0); PLATELET COUNT, AUTOMATED 224 10^3/uL (150-450); RED BLOOD COUNT 3.06 10^6/uL (4.00-5.40); WHITE BLOOD COUNT 4.9 10^3/uL (4.0-10.0)
== END ==
LOC: SKLAB6 07:00
PROVIDERS: ATTEND Internal Medicine
DX: I48.91 Unspecified atrial fibrillation (principal)

== ENCOUNTER → 2022-06-10 | Outpatient (REF) | payer MEDICARE, OTHER ==
[~2022-06-10] MED LIST changes: +BISA10SU27 PR; +CLAR10CA3 PO; +LIDO15SO4 PO; +MAALSUS19 PO; +MILKSUS3 PO; +SERO1TAB3 PO
[2022-06-10 07:07] LABS: BASO % 0.5 % (0.0-1.0); EOS # 0.1 10^3/uL (0.0-0.5); EOS % 2.3 % (0.0-3.0); HEMOGLOBIN 9.5 g/dl (12.0-15.5); LYMPH # 0.9 10^3/uL (1.5-5.0); LYMPH % 20.4 % (24.0-44.0); MEAN CORPUSCULAR HEMOGLOBIN 31.9 pg (27.0-33.0); MEAN CORPUSCULAR HGB CONC 31.7 g/dl (32.0-36.5); MEAN CORPUSCULAR VOLUME 100.7 fl (80.0-96.0); MONO # 0.4 10^3/uL (0.0-0.8); MONO % 10.1 % (2.0-8.0); NEUTROPHILS # 2.8 10^3/uL (1.5-8.5); NEUTROPHILS % 66.2 % (36.0-66.0); PLATELET COUNT, AUTOMATED 172 10^3/uL (150-450); RED BLOOD COUNT 2.98 10^6/uL (4.00-5.40); WHITE BLOOD COUNT 4.3 10^3/uL (4.0-10.0)
[2022-06-10 07:32] LABS: FREE T4 1.18 NG/DL (0.89-1.76); THYROID STIMULATING HORMONE 1.066 uIU/ML (0.55-4.78)
== END ==
LOC: SKLAB6 07:00
PROVIDERS: ATTEND Internal Medicine
DX: E05.90 Thyrotoxicosis, unspecified without thyrotoxic crisis or storm (principal)

== ENCOUNTER → 2022-07-08 | Outpatient (CLI) | payer MEDICARE, OTHER ==
[~2022-07-08] MED LIST changes: +LIDO15SO PO; -LIDO15SO4 PO; +LIDOCAINE 1% MDV 20ML VIAL As Ordered ONE
[2022-07-08 08:45] LABS: BASO % 0.5 % (0.0-1.0); EOS # 0.2 10^3/uL (0.0-0.5); EOS % 2.4 % (0.0-3.0); HEMATOCRIT 32.7 % (36.0-47.0); HEMOGLOBIN 10.5 g/dl (12.0-15.5); LYMPH % 15.7 % (24.0-44.0); MEAN CORPUSCULAR HEMOGLOBIN 31.9 pg (27.0-33.0); MEAN CORPUSCULAR HGB CONC 32.1 g/dl (32.0-36.5); MEAN CORPUSCULAR VOLUME 99.4 fl (80.0-96.0); MONO # 0.4 10^3/uL (0.0-0.8); MONO % 6.9 % (2.0-8.0); NEUTROPHILS # 4.7 10^3/uL (1.5-8.5); NEUTROPHILS % 74.2 % (36.0-66.0); PLATELET COUNT, AUTOMATED 211 10^3/uL (150-450); RED BLOOD COUNT 3.29 10^6/uL (4.00-5.40); WHITE BLOOD COUNT 6.4 10^3/uL (4.0-10.0)
[2022-07-08 09:10] VITALS: BP 164/77
== END ==
LOC: M IRPRO 08:07
PROVIDERS: ATTEND Internal Medicine Hematology & Oncology
DX: D47.2 Monoclonal gammopathy (principal)

== ENCOUNTER → 2022-07-15 | Outpatient (REF) | payer MEDICARE ==
[~2022-07-15] MED LIST changes: -LIDOCAINE 1% MDV 20ML VIAL As Ordered ONE
[2022-07-15 08:08] LABS: ALBUMIN 2.6 G/DL (3.2-5.2); ALKALINE PHOSPHATASE 72 U/L (46-116); ALT/SGPT 12 U/L (7.0-40); AST/SGOT 17 U/L (<34); BILIRUBIN,TOTAL 0.4 MG/DL (0.3-1.2); BLOOD UREA NITROGEN 32 MG/DL (9-23); CALCIUM LEVEL 9.8 MG/DL (8.3-10.6); CARBON DIOXIDE LEVEL 26 MMOL/L (20-31); CHLORIDE LEVEL 109 MMOL/L (98-107); CHOLESTEROL LEVEL 92 MG/DL (<200); CHOLESTEROL RISK RATIO 2.68 (<5); CREATININE FOR GFR 0.92 MG/DL (0.55-1.30); DIGOXIN LEVEL 0.6 NG/ML (0.8-2.0); GLOMERULAR FILTRATION RATE > 60.0 (>45); GLUCOSE, FASTING 88 MG/DL (74-106); HDL CHOLESTEROL 34.3 MG/DL (>40); LDL CHOLESTEROL 41.3 MG/DL (<100); NON-HDL-C 57.7 MG/DL; PHOSPHORUS LEVEL 3.5 MG/DL (2.4-5.1); POTASSIUM SERUM 4.1 MMOL/L (3.5-5.1); PTH INTACT 37.8 PG/ML (18.5-88.0); SODIUM LEVEL 140 MMOL/L (136-145); TOTAL PROTEIN 6.9 G/DL (5.7-8.2); TRIGLYCERIDES LEVEL 82 MG/DL (<150)
[2022-07-15 08:11] LABS: TOTAL 25(OH) VITAMIN D 54.3 NG/ML (20.0-100.0)
== END ==
LOC: SKLAB6 07:00
PROVIDERS: ATTEND Internal Medicine
DX: Z51.81 Encounter for therapeutic drug level monitoring (principal); I48.91 Unspecified atrial fibrillation; E78.5 Hyperlipidemia, unspecified; Z13.29 Encounter for screening for other suspected endocrine disorder; Z79.899 Other long term (current) drug therapy

== ENCOUNTER → 2022-07-21 | Outpatient (REF) | payer MEDICARE | LOC: SKLAB6 08:46 | PROVIDERS: ATTEND Internal Medicine | DX: Z53.8 Procedure and treatment not carried out for other reasons (principal) ==

== ENCOUNTER → 2022-07-21 | Outpatient (CLI) | payer MEDICARE | LOC: M RAD 09:34 | PROVIDERS: ATTEND Nurse Practitioner Adult Health | DX: M79.605 Pain in left leg (principal) ==

== ENCOUNTER → 2022-08-12 | Outpatient (REF) | payer MEDICARE ==
[2022-08-12 08:36] LABS: BASO % 0.4 % (0.0-1.0); EOS # 0.1 10^3/uL (0.0-0.5); EOS % 2.2 % (0.0-3.0); HEMATOCRIT 31.7 % (36.0-47.0); HEMOGLOBIN 10.1 g/dl (12.0-15.5); LYMPH # 0.9 10^3/uL (1.5-5.0); LYMPH % 15.9 % (24.0-44.0); MEAN CORPUSCULAR HEMOGLOBIN 32.1 pg (27.0-33.0); MEAN CORPUSCULAR HGB CONC 31.9 g/dl (32.0-36.5); MEAN CORPUSCULAR VOLUME 100.6 fl (80.0-96.0); MONO # 0.4 10^3/uL (0.0-0.8); MONO % 7.8 % (2.0-8.0); NEUTROPHILS # 4.1 10^3/uL (1.5-8.5); NEUTROPHILS % 73.3 % (36.0-66.0); PLATELET COUNT, AUTOMATED 193 10^3/uL (150-450); RED BLOOD COUNT 3.15 10^6/uL (4.00-5.40); WHITE BLOOD COUNT 5.5 10^3/uL (4.0-10.0)
== END ==
LOC: SKLAB6 07:00
PROVIDERS: ATTEND Internal Medicine
DX: D64.9 Anemia, unspecified (principal)

== ENCOUNTER → 2022-08-24 | Outpatient (REF) | payer MEDICARE ==
[2022-08-24 07:22] LABS: PHOSPHORUS LEVEL 3.8 MG/DL (2.4-5.1); PTH INTACT 41.8 PG/ML (18.5-88.0)
[2022-08-24 07:24] LABS: TOTAL 25(OH) VITAMIN D 43.2 NG/ML (20.0-100.0)
== END ==
LOC: SKLAB6 07:00
PROVIDERS: ATTEND Internal Medicine
DX: Z13.29 Encounter for screening for other suspected endocrine disorder (principal); Z79.899 Other long term (current) drug therapy

== ENCOUNTER → 2022-08-27 | Outpatient (CLI) | payer MEDICARE | LOC: M RAD 12:35 | PROVIDERS: ATTEND Internal Medicine | DX: M25.552 Pain in left hip (principal); M16.12 Unilateral primary osteoarthritis, left hip; M25.752 Osteophyte, left hip ==

== ENCOUNTER → 2022-08-27 | Outpatient (REF) | payer MEDICARE | LOC: SKLAB3 06:57 | PROVIDERS: ATTEND Nurse Practitioner Adult Health | DX: M25.552 Pain in left hip (principal); Z53.8 Procedure and treatment not carried out for other reasons ==

== ENCOUNTER → 2022-09-08 | Outpatient (CLI) | payer MEDICARE | LOC: M WHC 13:25 | PROVIDERS: ATTEND Nurse Practitioner Adult Health | DX: Z12.31 Encounter for screening mammogram for malignant neoplasm of breast (principal) ==

== ENCOUNTER → 2022-10-28 | Outpatient (REF) | payer MEDICARE ==
[~2022-10-28] MED LIST changes: +DICL100G10 TOP; -DICL1GEL3 TOP
[2022-10-28 07:00] LABS: HEMATOCRIT 28.7 % (36.0-47.0); HEMOGLOBIN 9.1 g/dl (12.0-15.5); MEAN CORPUSCULAR HEMOGLOBIN 31.6 pg (27.0-33.0); MEAN CORPUSCULAR HGB CONC 31.7 g/dl (32.0-36.5); MEAN CORPUSCULAR VOLUME 99.7 fl (80.0-96.0); PLATELET COUNT, AUTOMATED 194 10^3/uL (150-450); RED BLOOD COUNT 2.88 10^6/uL (4.00-5.40); WHITE BLOOD COUNT 4.2 10^3/uL (4.0-10.0)
== END ==
LOC: SKLAB6 07:00
PROVIDERS: ATTEND Internal Medicine
DX: D64.9 Anemia, unspecified (principal)

== ENCOUNTER → 2022-11-05 | Outpatient (REF) | payer MEDICARE ==
[2022-11-05 17:03] LABS: APPEARANCE, URINE HAZY (CLEAR); BACTERIA, URINE AUTO 2+ (NEGATIVE); BILIRUBIN, URINE AUTO NEGATIVE (NEGATIVE); BLOOD, URINE BLOOD NEGATIVE (NEGATIVE); COLOR, URINE YELLOW (YELLOW); GLUCOSE, URINE (UA) AUTO NEGATIVE (NEGATIVE); KETONE, URINE AUTO NEGATIVE (NEGATIVE); LEUKOCYTE ESTERASE, URINE AUTO 1+ (NEGATIVE); NITRITE, URINE AUTO POSITIVE (NEGATIVE); PROTEIN, URINE AUTO NEGATIVE (NEGATIVE); RBC, URINE AUTO 1 /HPF (0-3); SPECIFIC GRAVITY URINE AUTO 1.013 (1.002-1.035); SQUAMOUS EPITHELIAL CELL UR AU 3 /HPF (0-6); UROBILINOGEN, URINE AUTO 0.2 mg/dL (0.0-2.0); WBC, URINE AUTO 12 /HPF (0-3)
[2022-11-05 19:11] LABS: HEMATOCRIT 31.1 % (36.0-47.0); HEMOGLOBIN 9.9 g/dl (12.0-15.5); MEAN CORPUSCULAR HEMOGLOBIN 31.1 pg (27.0-33.0); MEAN CORPUSCULAR HGB CONC 31.8 g/dl (32.0-36.5); MEAN CORPUSCULAR VOLUME 97.8 fl (80.0-96.0); PLATELET COUNT, AUTOMATED 237 10^3/uL (150-450); RED BLOOD COUNT 3.18 10^6/uL (4.00-5.40); WHITE BLOOD COUNT 7.5 10^3/uL (4.0-10.0)
[2022-11-05 19:22] LABS: BLOOD UREA NITROGEN 30 MG/DL (9-23); CALCIUM LEVEL 10.3 MG/DL (8.3-10.6); CARBON DIOXIDE LEVEL 24 MMOL/L (20-31); CHLORIDE LEVEL 106 MMOL/L (98-107); CREATININE FOR GFR 0.88 MG/DL (0.55-1.30); GLOMERULAR FILTRATION RATE > 60.0 (>45); GLUCOSE, FASTING 129 MG/DL (74-106); POTASSIUM SERUM 4.5 MMOL/L (3.5-5.1); SODIUM LEVEL 141 MMOL/L (136-145)
== END ==
LOC: SKLAB6 13:36
PROVIDERS: ATTEND Internal Medicine
DX: R41.82 Altered mental status, unspecified (principal)

== ENCOUNTER → 2022-11-05 | Outpatient (REF) | LOC: SKLAB6 16:13 | PROVIDERS: ATTEND Internal Medicine | DX: R41.82 Altered mental status, unspecified (principal); Z53.8 Procedure and treatment not carried out for other reasons ==

== ENCOUNTER 2022-11-23 16:51 | Emergency (ER) | payer MEDICARE, OTHER ==
[2022-11-23 16:52] VITALS: BP 117/58; TEMP 98.1; O2SAT 100
[2022-11-23 18:39] LABS: BASO % 0.3 % (0.0-1.0); EOS # 0.1 10^3/uL (0.0-0.5); EOS % 2.2 % (0.0-3.0); HEMATOCRIT 30.8 % (36.0-47.0); HEMOGLOBIN 9.8 g/dl (12.0-15.5); LYMPH # 1.2 10^3/uL (1.5-5.0); LYMPH % 20.7 % (24.0-44.0); MEAN CORPUSCULAR HEMOGLOBIN 31.7 pg (27.0-33.0); MEAN CORPUSCULAR HGB CONC 31.8 g/dl (32.0-36.5); MEAN CORPUSCULAR VOLUME 99.7 fl (80.0-96.0); MONO # 0.5 10^3/uL (0.0-0.8); MONO % 8.4 % (2.0-8.0); NEUTROPHILS % 68.2 % (36.0-66.0); PLATELET COUNT, AUTOMATED 222 10^3/uL (150-450); RED BLOOD COUNT 3.09 10^6/uL (4.00-5.40); WHITE BLOOD COUNT 5.8 10^3/uL (4.0-10.0)
[2022-11-23 18:53] LABS: ERYTHROCYTE SEDIMENTATION RATE 85 mm/hr (0-30)
[2022-11-23 18:54] LABS: C REACTIVE PROTEIN QUANTITATIV 0.5 MG/DL (<1.0)
[2022-11-23 18:55] LABS: CALCIUM LEVEL 9.6 MG/DL (8.3-10.6); GLOMERULAR FILTRATION RATE 58.7 (>45); POTASSIUM SERUM 4.5 MMOL/L (3.5-5.1)
== END 2022-11-23 20:25 | disposition home or self-care (01) ==
LOC: M ED 16:51
DX: M79.609 Pain in unspecified limb (principal); I10 Essential (primary) hypertension; F03.90 Unspecified dementia, unspecified severity, without behavioral disturbance, psychotic disturbance, mood disturbance, and anxiety; Z86.711 Personal history of pulmonary embolism; Z86.718 Personal history of other venous thrombosis and embolism; Z87.891 Personal history of nicotine dependence; Z79.01 Long term (current) use of anticoagulants; Z79.899 Other long term (current) drug therapy; Z88.6 Allergy status to analgesic agent

== ENCOUNTER → 2022-12-09 | Outpatient (REF) | payer MEDICARE, OTHER ==
[2022-12-09 08:44] LABS: BASO % 0.5 % (0.0-1.0); EOS # 0.2 10^3/uL (0.0-0.5); EOS % 2.7 % (0.0-3.0); HEMATOCRIT 30.9 % (36.0-47.0); HEMOGLOBIN 9.8 g/dl (12.0-15.5); LYMPH # 1.1 10^3/uL (1.5-5.0); LYMPH % 18.6 % (24.0-44.0); MEAN CORPUSCULAR HEMOGLOBIN 31.6 pg (27.0-33.0); MEAN CORPUSCULAR HGB CONC 31.7 g/dl (32.0-36.5); MEAN CORPUSCULAR VOLUME 99.7 fl (80.0-96.0); MONO # 0.5 10^3/uL (0.0-0.8); MONO % 9.1 % (2.0-8.0); NEUTROPHILS % 68.9 % (36.0-66.0); PLATELET COUNT, AUTOMATED 208 10^3/uL (150-450); WHITE BLOOD COUNT 5.8 10^3/uL (4.0-10.0)
[2022-12-09 09:19] LABS: FREE T4 1.14 NG/DL (0.89-1.76)
[2022-12-09 09:20] LABS: THYROID STIMULATING HORMONE 0.646 uIU/ML (0.55-4.78)
== END ==
LOC: SKLAB6 07:00
PROVIDERS: ATTEND Internal Medicine
DX: E05.90 Thyrotoxicosis, unspecified without thyrotoxic crisis or storm (principal)

== ENCOUNTER → 2022-12-16 | Outpatient (REF) | payer MEDICARE, OTHER ==
[2022-12-16 13:35] LABS: HEMATOCRIT 30.9 % (36.0-47.0); HEMOGLOBIN 9.9 g/dl (12.0-15.5); MEAN CORPUSCULAR HEMOGLOBIN 31.8 pg (27.0-33.0); MEAN CORPUSCULAR VOLUME 99.4 fl (80.0-96.0); PLATELET COUNT, AUTOMATED 214 10^3/uL (150-450); RED BLOOD COUNT 3.11 10^6/uL (4.00-5.40); WHITE BLOOD COUNT 5.2 10^3/uL (4.0-10.0)
[2022-12-16 14:02] LABS: BLOOD UREA NITROGEN 26 MG/DL (9-23); CALCIUM LEVEL 9.7 MG/DL (8.3-10.6); CARBON DIOXIDE LEVEL 25 MMOL/L (20-31); CHLORIDE LEVEL 108 MMOL/L (98-107); CREATININE FOR GFR 0.93 MG/DL (0.55-1.30); GLOMERULAR FILTRATION RATE > 60.0 (>45); GLUCOSE, FASTING 96 MG/DL (74-106); POTASSIUM SERUM 4.3 MMOL/L (3.5-5.1); SODIUM LEVEL 142 MMOL/L (136-145)
== END ==
LOC: SKLAB6 12:24
PROVIDERS: ATTEND Internal Medicine
DX: J98.11 Atelectasis (principal); R07.9 Chest pain, unspecified

== ENCOUNTER → 2023-01-05 | Outpatient (CLI) | payer MEDICARE, OTHER | LOC: M RAD 12:25 | PROVIDERS: ATTEND Internal Medicine | DX: R05.9 Cough, unspecified (principal); R53.81 Other malaise; J98.11 Atelectasis ==

== ENCOUNTER → 2023-01-05 | Outpatient (REF) | payer MEDICARE, OTHER ==
[2023-01-05 12:46] LABS: HEMOGLOBIN 9.6 g/dl (12.0-15.5); MEAN CORPUSCULAR HEMOGLOBIN 31.3 pg (27.0-33.0); MEAN CORPUSCULAR VOLUME 97.7 fl (80.0-96.0); PLATELET COUNT, AUTOMATED 223 10^3/uL (150-450); RED BLOOD COUNT 3.07 10^6/uL (4.00-5.40); WHITE BLOOD COUNT 4.7 10^3/uL (4.0-10.0)
[2023-01-05 13:16] LABS: BLOOD UREA NITROGEN 27 MG/DL (9-23); CALCIUM LEVEL 9.9 MG/DL (8.3-10.6); CARBON DIOXIDE LEVEL 24 MMOL/L (20-31); CHLORIDE LEVEL 112 MMOL/L (98-107); CREATININE FOR GFR 0.86 MG/DL (0.55-1.30); GLOMERULAR FILTRATION RATE > 60.0 (>45); GLUCOSE, FASTING 97 MG/DL (74-106); POTASSIUM SERUM 4.3 MMOL/L (3.5-5.1); SODIUM LEVEL 143 MMOL/L (136-145)
== END ==
LOC: SKLAB6 11:16
PROVIDERS: ATTEND Internal Medicine
DX: R05.9 Cough, unspecified (principal); R53.83 Other fatigue; R53.81 Other malaise; J98.11 Atelectasis

== ENCOUNTER → 2023-01-13 | Outpatient (REF) | payer MEDICARE, OTHER ==
[2023-01-13 08:17] LABS: ALKALINE PHOSPHATASE 68 U/L (46-116); ALT/SGPT 17 U/L (7.0-40); AST/SGOT 16 U/L (<34); BILIRUBIN,TOTAL 0.4 MG/DL (0.3-1.2); BLOOD UREA NITROGEN 29 MG/DL (9-23); CALCIUM LEVEL 10.4 MG/DL (8.3-10.6); CARBON DIOXIDE LEVEL 26 MMOL/L (20-31); CHLORIDE LEVEL 106 MMOL/L (98-107); CHOLESTEROL LEVEL 114 MG/DL (<200); CHOLESTEROL RISK RATIO 2.72 (<5); CREATININE FOR GFR 0.91 MG/DL (0.55-1.30); DIGOXIN LEVEL 0.4 NG/ML (0.8-2.0); GLOMERULAR FILTRATION RATE > 60.0 (>45); GLUCOSE, FASTING 80 MG/DL (74-106); HDL CHOLESTEROL 41.8 MG/DL (>40); LDL CHOLESTEROL 47.2 MG/DL (<100); NON-HDL-C 72.2 MG/DL; POTASSIUM SERUM 4.8 MMOL/L (3.5-5.1); SODIUM LEVEL 142 MMOL/L (136-145); TOTAL PROTEIN 7.7 G/DL (5.7-8.2); TRIGLYCERIDES LEVEL 125 MG/DL (<150)
== END ==
LOC: SKLAB6 07:00
PROVIDERS: ATTEND Internal Medicine
DX: Z51.81 Encounter for therapeutic drug level monitoring (principal); I48.91 Unspecified atrial fibrillation; E78.5 Hyperlipidemia, unspecified

== ENCOUNTER → 2023-01-31 | Outpatient (REF) | payer MEDICARE, OTHER ==
[2023-01-31 12:39] LABS: HEMATOCRIT 29.8 % (36.0-47.0); HEMOGLOBIN 9.5 g/dl (12.0-15.5); MEAN CORPUSCULAR HEMOGLOBIN 30.8 pg (27.0-33.0); MEAN CORPUSCULAR HGB CONC 31.9 g/dl (32.0-36.5); MEAN CORPUSCULAR VOLUME 96.8 fl (80.0-96.0); PLATELET COUNT, AUTOMATED 192 10^3/uL (150-450); RED BLOOD COUNT 3.08 10^6/uL (4.00-5.40); WHITE BLOOD COUNT 5.4 10^3/uL (4.0-10.0)
[2023-01-31 13:02] LABS: BLOOD UREA NITROGEN 24 MG/DL (9-23); CALCIUM LEVEL 9.8 MG/DL (8.3-10.6); CARBON DIOXIDE LEVEL 24 MMOL/L (20-31); CHLORIDE LEVEL 108 MMOL/L (98-107); CREATININE FOR GFR 0.88 MG/DL (0.55-1.30); GLOMERULAR FILTRATION RATE > 60.0 (>45); GLUCOSE, FASTING 96 MG/DL (74-106); SODIUM LEVEL 142 MMOL/L (136-145)
== END ==
LOC: SKLAB6 11:47
PROVIDERS: ATTEND Nurse Practitioner Adult Health
DX: R07.89 Other chest pain (principal)

== ENCOUNTER → 2023-03-17 | Outpatient (REF) | payer MEDICARE, OTHER ==
[2023-03-17 07:27] LABS: FREE T4 1.25 NG/DL (0.89-1.76); THYROID STIMULATING HORMONE 0.038 uIU/ML (0.55-4.78)
== END ==
LOC: SKLAB6 07:00
PROVIDERS: ATTEND Internal Medicine
DX: E05.90 Thyrotoxicosis, unspecified without thyrotoxic crisis or storm (principal)

== ENCOUNTER → 2023-03-18 | Outpatient (REF) | payer MEDICARE, OTHER ==
[2023-03-18 07:37] LABS: BASO % 0.5 % (0.0-1.0); EOS # 0.2 10^3/uL (0.0-0.5); HEMATOCRIT 29.4 % (36.0-47.0); HEMOGLOBIN 9.2 g/dl (12.0-15.5); LYMPH # 1.3 10^3/uL (1.5-5.0); LYMPH % 23.8 % (24.0-44.0); MEAN CORPUSCULAR HEMOGLOBIN 30.8 pg (27.0-33.0); MEAN CORPUSCULAR HGB CONC 31.3 g/dl (32.0-36.5); MEAN CORPUSCULAR VOLUME 98.3 fl (80.0-96.0); MONO # 0.4 10^3/uL (0.0-0.8); MONO % 7.7 % (2.0-8.0); NEUTROPHILS # 3.6 10^3/uL (1.5-8.5); NEUTROPHILS % 64.8 % (36.0-66.0); PLATELET COUNT, AUTOMATED 195 10^3/uL (150-450); RED BLOOD COUNT 2.99 10^6/uL (4.00-5.40); WHITE BLOOD COUNT 5.6 10^3/uL (4.0-10.0)
== END ==
LOC: SKLAB5 07:00
PROVIDERS: ATTEND Internal Medicine
DX: I48.91 Unspecified atrial fibrillation (principal)

== ENCOUNTER → 2023-04-20 | Outpatient (REF) | payer MEDICARE, OTHER | LOC: SKLAB6 12:35 | PROVIDERS: ATTEND Internal Medicine | DX: J98.11 Atelectasis (principal); J98.4 Other disorders of lung ==

== ENCOUNTER → 2023-05-26 | Outpatient (REF) | payer MEDICARE, OTHER ==
[~2023-05-26] MED LIST changes: -ASPI-161 PO; +ASPI-615 PO
[2023-05-26 15:47] LABS: HEMATOCRIT 33.7 % (36.0-47.0); HEMOGLOBIN 10.8 g/dl (12.0-15.5); MEAN CORPUSCULAR HEMOGLOBIN 30.6 pg (27.0-33.0); MEAN CORPUSCULAR VOLUME 95.5 fl (80.0-96.0); PLATELET COUNT, AUTOMATED 257 10^3/uL (150-450); RED BLOOD COUNT 3.53 10^6/uL (4.00-5.40); WHITE BLOOD COUNT 7.1 10^3/uL (4.0-10.0)
[2023-05-26 16:03] LABS: BLOOD UREA NITROGEN 30 MG/DL (9-23); CALCIUM LEVEL 10.2 MG/DL (8.3-10.6); CARBON DIOXIDE LEVEL 24 MMOL/L (20-31); CHLORIDE LEVEL 110 MMOL/L (98-107); CREATININE FOR GFR 0.98 MG/DL (0.55-1.30); GLOMERULAR FILTRATION RATE > 60.0 (>45); GLUCOSE, FASTING 124 MG/DL (74-106); POTASSIUM SERUM 4.5 MMOL/L (3.5-5.1); SODIUM LEVEL 142 MMOL/L (136-145)
== END ==
LOC: SKLAB6 07:00
PROVIDERS: ATTEND Nurse Practitioner Adult Health
DX: R63.4 Abnormal weight loss (principal)

== ENCOUNTER → 2023-06-16 | Outpatient (REF) | payer MEDICARE, OTHER ==
[~2023-06-16] MED LIST changes: -LIDO15SO PO; +LIDO15SO8 PO
[2023-06-16 10:11] LABS: FREE T4 1.63 NG/DL (0.89-1.76)
[2023-06-16 10:12] LABS: THYROID STIMULATING HORMONE 0.008 uIU/ML (0.55-4.78)
== END ==
LOC: SKLAB6 07:00
PROVIDERS: ATTEND Internal Medicine
DX: E05.90 Thyrotoxicosis, unspecified without thyrotoxic crisis or storm (principal)

== ENCOUNTER → 2023-06-22 | Outpatient (REF) | payer MEDICARE, OTHER ==
[2023-06-25 03:07] LABS: THYROID STIMULATING IMMUNOGLOB <0.10 IU/L (0.00-0.55); TSH RECEPTOR ASSAY <1.10 IU/L (0.00-1.75)
== END ==
LOC: SKLAB6 06:58
PROVIDERS: ATTEND Internal Medicine
DX: E05.90 Thyrotoxicosis, unspecified without thyrotoxic crisis or storm (principal)

== ENCOUNTER → 2023-07-08 | Outpatient (REF) | payer MEDICARE, OTHER | LOC: SKLAB6 07:00 | PROVIDERS: ATTEND Internal Medicine | DX: Z79.899 Other long term (current) drug therapy (principal) ==

== ENCOUNTER → 2023-07-25 | Outpatient (REF) | payer MEDICARE, OTHER ==
[2023-07-25 19:15] LABS: APPEARANCE, URINE CLOUDY (CLEAR); BACTERIA, URINE AUTO 3+ (NEGATIVE); BILIRUBIN, URINE AUTO NEGATIVE (NEGATIVE); BLOOD, URINE BLOOD 1+ (NEGATIVE); COLOR, URINE AMBER (YELLOW); GLUCOSE, URINE (UA) AUTO NEGATIVE (NEGATIVE); KETONE, URINE AUTO NEGATIVE (NEGATIVE); LEUKOCYTE ESTERASE, URINE AUTO 1+ (NEGATIVE); NITRITE, URINE AUTO POSITIVE (NEGATIVE); PROTEIN, URINE AUTO NEGATIVE (NEGATIVE); RBC, URINE AUTO 1 /HPF (0-3); SPECIFIC GRAVITY URINE AUTO 1.014 (1.002-1.035); SQUAMOUS EPITHELIAL CELL UR AU 3 /HPF (0-6); UROBILINOGEN, URINE AUTO 0.2 mg/dL (0.0-2.0); WBC, URINE AUTO 13 /HPF (0-3)
== END ==
LOC: SKLAB6 14:21
PROVIDERS: ATTEND Internal Medicine
DX: R35.0 Frequency of micturition (principal)

== ENCOUNTER → 2023-09-09 | Outpatient (CLI) | payer MEDICARE, OTHER ==
[~2023-09-09] MED LIST changes: +BUPR-597 PO; -BUPR300T92 PO; +DOXY-440 PO; -DOXY-444 PO; +FLUO-365 PO; -FLUO20CA22 PO; +GASTROGRAFIN SOLUTION 30ML As Ordered ONE; +ISOVUE-370 76% 100ML VIAL As Ordered ONE
== END ==
LOC: M RAD 14:36
PROVIDERS: ATTEND Nurse Practitioner
DX: R10.9 Unspecified abdominal pain (principal)
CPT/HCPCS: 36415; 74177; 80053; 85027; Q9963; Q9967

== ENCOUNTER → 2023-09-09 | Outpatient (REF) | payer MEDICARE, OTHER ==
[~2023-09-09] MED LIST changes: -GASTROGRAFIN SOLUTION 30ML As Ordered ONE; -ISOVUE-370 76% 100ML VIAL As Ordered ONE
[2023-09-09 14:09] LABS: HEMATOCRIT 31.5 % (36.0-47.0); HEMOGLOBIN 10.2 g/dl (12.0-15.5); MEAN CORPUSCULAR HEMOGLOBIN 30.1 pg (27.0-33.0); MEAN CORPUSCULAR HGB CONC 32.4 g/dl (32.0-36.5); MEAN CORPUSCULAR VOLUME 92.9 fl (80.0-96.0); PLATELET COUNT, AUTOMATED 174 10^3/uL (150-450); RED BLOOD COUNT 3.39 10^6/uL (4.00-5.40); WHITE BLOOD COUNT 4.6 10^3/uL (4.0-10.0)
[2023-09-09 14:32] LABS: ALBUMIN 2.4 G/DL (3.2-5.2); BILIRUBIN,TOTAL 0.3 MG/DL (0.3-1.2); CALCIUM LEVEL 10.8 MG/DL (8.3-10.6); CREATININE FOR GFR 1.2 MG/DL (0.55-1.30); GLOMERULAR FILTRATION RATE 47.6 (>45); POTASSIUM SERUM 4.2 MMOL/L (3.5-5.1); TOTAL PROTEIN 7.4 G/DL (5.7-8.2)
== END ==
LOC: SKLAB6 13:23
PROVIDERS: ATTEND Internal Medicine
DX: R10.9 Unspecified abdominal pain (principal)

== ENCOUNTER → 2023-09-12 | Outpatient (REF) | payer MEDICARE, OTHER ==
[2023-09-12 08:19] LABS: HEMATOCRIT 29.1 % (36.0-47.0); HEMOGLOBIN 9.5 g/dl (12.0-15.5); MEAN CORPUSCULAR HEMOGLOBIN 30.5 pg (27.0-33.0); MEAN CORPUSCULAR HGB CONC 32.6 g/dl (32.0-36.5); MEAN CORPUSCULAR VOLUME 93.6 fl (80.0-96.0); PLATELET COUNT, AUTOMATED 144 10^3/uL (150-450); RED BLOOD COUNT 3.11 10^6/uL (4.00-5.40); WHITE BLOOD COUNT 4.8 10^3/uL (4.0-10.0)
[2023-09-12 08:51] LABS: ALBUMIN 2.1 G/DL (3.2-5.2); BILIRUBIN,TOTAL 0.3 MG/DL (0.3-1.2); CALCIUM LEVEL 10.1 MG/DL (8.3-10.6); CREATININE FOR GFR 1.43 MG/DL (0.55-1.30); GLOMERULAR FILTRATION RATE 38.8 (>45); POTASSIUM SERUM 3.8 MMOL/L (3.5-5.1); TOTAL PROTEIN 6.6 G/DL (5.7-8.2)
[2023-09-12 13:50] LABS: APPEARANCE, URINE HAZY (CLEAR); BACTERIA, URINE AUTO 1+ (NEGATIVE); BILIRUBIN, URINE AUTO NEGATIVE (NEGATIVE); BLOOD, URINE BLOOD NEGATIVE (NEGATIVE); COLOR, URINE YELLOW (YELLOW); GLUCOSE, URINE (UA) AUTO NEGATIVE (NEGATIVE); KETONE, URINE AUTO NEGATIVE (NEGATIVE); LEUKOCYTE ESTERASE, URINE AUTO NEGATIVE (NEGATIVE); MUCUS, URINE SMALL (NEGATIVE); NITRITE, URINE AUTO NEGATIVE (NEGATIVE); PROTEIN, URINE AUTO NEGATIVE (NEGATIVE); RBC, URINE AUTO 1 /HPF (0-3); SPECIFIC GRAVITY URINE AUTO 1.016 (1.002-1.035); SQUAMOUS EPITHELIAL CELL UR AU 4 /HPF (0-6); UROBILINOGEN, URINE AUTO 0.2 mg/dL (0.0-2.0); WBC, URINE AUTO 2 /HPF (0-3)
== END ==
LOC: SKLAB6 07:24
PROVIDERS: ATTEND Internal Medicine
DX: R53.83 Other fatigue (principal); J18.9 Pneumonia, unspecified organism

== ENCOUNTER → 2023-09-13 | Outpatient (REF) | payer MEDICARE, OTHER ==
[2023-09-13 10:42] LABS: HEMATOCRIT 30.7 % (36.0-47.0); HEMOGLOBIN 9.8 g/dl (12.0-15.5); MEAN CORPUSCULAR HEMOGLOBIN 30.2 pg (27.0-33.0); MEAN CORPUSCULAR HGB CONC 31.9 g/dl (32.0-36.5); MEAN CORPUSCULAR VOLUME 94.8 fl (80.0-96.0); PLATELET COUNT, AUTOMATED 171 10^3/uL (150-450); RED BLOOD COUNT 3.24 10^6/uL (4.00-5.40); WHITE BLOOD COUNT 5.4 10^3/uL (4.0-10.0)
[2023-09-13 11:11] LABS: CALCIUM LEVEL 10.5 MG/DL (8.3-10.6); CREATININE FOR GFR 1.01 MG/DL (0.55-1.30); POTASSIUM SERUM 4.1 MMOL/L (3.5-5.1)
== END ==
LOC: SKLAB6 07:00
PROVIDERS: ATTEND Internal Medicine
DX: R53.83 Other fatigue (principal); J18.9 Pneumonia, unspecified organism

== ENCOUNTER → 2023-09-15 | Outpatient (REF) | payer MEDICARE, OTHER ==
[2023-09-15 14:23] LABS: FREE T4 1.48 NG/DL (0.89-1.76); THYROID STIMULATING HORMONE 0.008 uIU/ML (0.55-4.78)
== END ==
LOC: SKLAB6 07:00
PROVIDERS: ATTEND Internal Medicine
DX: E05.90 Thyrotoxicosis, unspecified without thyrotoxic crisis or storm (principal)

== ENCOUNTER → 2023-10-13 | Outpatient (REF) | payer MEDICARE, OTHER | LOC: SKLAB6 07:29 | PROVIDERS: ATTEND Internal Medicine | DX: Z79.899 Other long term (current) drug therapy (principal) ==

== ENCOUNTER → 2023-11-18 | Outpatient (CLI) | payer MEDICARE, OTHER | LOC: M RAD 10:26 | PROVIDERS: ATTEND Nurse Practitioner Adult Health | DX: R41.82 Altered mental status, unspecified (principal); R53.83 Other fatigue ==

== ENCOUNTER → 2023-11-18 | Outpatient (REF) | payer MEDICARE, OTHER ==
[2023-11-18 11:19] LABS: MEAN CORPUSCULAR HEMOGLOBIN 31.3 pg (27.0-33.0); MEAN CORPUSCULAR HGB CONC 32.4 g/dl (32.0-36.5); MEAN CORPUSCULAR VOLUME 96.9 fl (80.0-96.0); PLATELET COUNT, AUTOMATED 185 10^3/uL (150-450); RED BLOOD COUNT 3.51 10^6/uL (4.00-5.40); WHITE BLOOD COUNT 8.3 10^3/uL (4.0-10.0)
[2023-11-18 11:36] LABS: CALCIUM LEVEL 11.1 MG/DL (8.3-10.6); CREATININE FOR GFR 1.37 MG/DL (0.55-1.30); GLOMERULAR FILTRATION RATE 40.7 (>45); POTASSIUM SERUM 4.1 MMOL/L (3.5-5.1)
[2023-11-18 13:17] LABS: APPEARANCE, URINE CLOUDY (CLEAR); BACTERIA, URINE AUTO 1+ (NEGATIVE); BILIRUBIN, URINE AUTO NEGATIVE (NEGATIVE); BLOOD, URINE BLOOD NEGATIVE (NEGATIVE); COLOR, URINE YELLOW (YELLOW); GLUCOSE, URINE (UA) AUTO NEGATIVE (NEGATIVE); KETONE, URINE AUTO NEGATIVE (NEGATIVE); LEUKOCYTE ESTERASE, URINE AUTO 3+ (NEGATIVE); MUCUS, URINE LARGE (NEGATIVE); NITRITE, URINE AUTO POSITIVE (NEGATIVE); PROTEIN, URINE AUTO 1+ mg/dL (NEGATIVE); RBC, URINE AUTO 3 /HPF (0-3); SPECIFIC GRAVITY URINE AUTO 1.013 (1.002-1.035); SQUAMOUS EPITHELIAL CELL UR AU 2 /HPF (0-6); UROBILINOGEN, URINE AUTO 0.2 mg/dL (0.0-2.0); WBC, URINE AUTO TNTC /HPF (0-3)
== END ==
LOC: SKLAB6 09:27
PROVIDERS: ATTEND Internal Medicine
DX: R41.82 Altered mental status, unspecified (principal); R53.83 Other fatigue

== ENCOUNTER → 2023-11-21 | Outpatient (REF) | payer MEDICARE, OTHER ==
[2023-11-21 12:14] LABS: BASO % 0.3 % (0.0-1.0); EOS % 0.3 % (0.0-3.0); HEMOGLOBIN 10.8 g/dl (12.0-15.5); LYMPH # 1.3 10^3/uL (1.5-5.0); LYMPH % 19.3 % (24.0-44.0); MEAN CORPUSCULAR HEMOGLOBIN 30.9 pg (27.0-33.0); MEAN CORPUSCULAR HGB CONC 30.9 g/dl (32.0-36.5); MEAN CORPUSCULAR VOLUME 100.3 fl (80.0-96.0); MONO # 0.6 10^3/uL (0.0-0.8); MONO % 8.2 % (2.0-8.0); NEUTROPHILS % 71.6 % (36.0-66.0); PLATELET COUNT, AUTOMATED 168 10^3/uL (150-450); RED BLOOD COUNT 3.49 10^6/uL (4.00-5.40)
[2023-11-21 12:46] LABS: CREATININE FOR GFR 1.32 MG/DL (0.55-1.30); GLOMERULAR FILTRATION RATE 42.5 (>45); POTASSIUM SERUM 3.7 MMOL/L (3.5-5.1)
== END ==
LOC: SKLAB6 07:21
PROVIDERS: ATTEND Internal Medicine
DX: N39.0 Urinary tract infection, site not specified (principal)

== ENCOUNTER → 2023-11-22 | Outpatient (REF) | payer MEDICARE, OTHER ==
[2023-11-22 09:14] LABS: HEMATOCRIT 35.6 % (36.0-47.0); MEAN CORPUSCULAR HGB CONC 30.9 g/dl (32.0-36.5); MEAN CORPUSCULAR VOLUME 100.3 fl (80.0-96.0); PLATELET COUNT, AUTOMATED 170 10^3/uL (150-450); RED BLOOD COUNT 3.55 10^6/uL (4.00-5.40); WHITE BLOOD COUNT 8.2 10^3/uL (4.0-10.0)
[2023-11-22 10:54] LABS: CREATININE FOR GFR 1.16 MG/DL (0.55-1.30); GLOMERULAR FILTRATION RATE 49.3 (>45); POTASSIUM SERUM 3.7 MMOL/L (3.5-5.1)
== END ==
LOC: SKLAB6 07:00
PROVIDERS: ATTEND Internal Medicine
DX: E86.0 Dehydration (principal)

== ENCOUNTER → 2023-11-25 | Outpatient (REF) | payer MEDICARE, OTHER | LOC: SKLAB6 13:54 | PROVIDERS: ATTEND Internal Medicine | DX: Z53.8 Procedure and treatment not carried out for other reasons (principal) ==

== ENCOUNTER → 2023-11-25 | Outpatient (REF) | payer MEDICARE, OTHER ==
[2023-11-25 06:36] LABS: HEMATOCRIT 27.8 % (36.0-47.0); HEMOGLOBIN 8.9 g/dl (12.0-15.5); MEAN CORPUSCULAR HEMOGLOBIN 30.7 pg (27.0-33.0); MEAN CORPUSCULAR VOLUME 95.9 fl (80.0-96.0); PLATELET COUNT, AUTOMATED 125 10^3/uL (150-450); WHITE BLOOD COUNT 5.9 10^3/uL (4.0-10.0)
[2023-11-25 07:10] LABS: CALCIUM LEVEL 9.9 MG/DL (8.3-10.6); CREATININE FOR GFR 0.99 MG/DL (0.55-1.30); GLOMERULAR FILTRATION RATE 59.2 (>45); POTASSIUM SERUM 4.3 MMOL/L (3.5-5.1)
== END ==
LOC: SKLAB6 07:00
PROVIDERS: ATTEND Internal Medicine
DX: N18.9 Chronic kidney disease, unspecified (principal)

== ENCOUNTER → 2023-11-28 | Outpatient (REF) | payer MEDICARE, OTHER | LOC: SKLAB6 23:10 | PROVIDERS: ATTEND Internal Medicine | DX: D64.9 Anemia, unspecified (principal) ==

== ENCOUNTER → 2023-12-02 | Outpatient (REF) | payer MEDICARE, OTHER | LOC: SKLAB6 15:25 → SKLAB4 15:25 | PROVIDERS: ATTEND Internal Medicine | DX: D64.9 Anemia, unspecified (principal) ==

== ENCOUNTER → 2023-12-07 | Outpatient (REF) | payer MEDICARE, OTHER | LOC: SKLAB6 10:57 | PROVIDERS: ATTEND Internal Medicine | DX: Z53.8 Procedure and treatment not carried out for other reasons (principal) ==

== ENCOUNTER → 2023-12-15 | Outpatient (REF) | payer MEDICARE, OTHER ==
[2023-12-15 11:26] LABS: THYROID STIMULATING HORMONE 0.008 uIU/ML (0.55-4.78)
[2023-12-15 11:27] LABS: FREE T4 2.11 NG/DL (0.89-1.76)
== END ==
LOC: SKLAB6 07:06
PROVIDERS: ATTEND Internal Medicine
DX: E07.9 Disorder of thyroid, unspecified (principal)

== ENCOUNTER → 2024-01-12 | Outpatient (REF) | payer MEDICARE, OTHER ==
[2024-01-12 09:35] LABS: DIGOXIN LEVEL 0.7 NG/ML (0.8-2.0)
[2024-01-12 09:39] LABS: ALBUMIN 2.3 G/DL (3.2-5.2); ALKALINE PHOSPHATASE 70 U/L (46-116); ALT/SGPT 15 U/L (7.0-40); AST/SGOT 13 U/L (<34); BILIRUBIN,TOTAL 0.3 MG/DL (0.3-1.2); BLOOD UREA NITROGEN 55 MG/DL (9-23); CALCIUM LEVEL 11.3 MG/DL (8.3-10.6); CARBON DIOXIDE LEVEL 26 MMOL/L (20-31); CHLORIDE LEVEL 106 MMOL/L (98-107); CREATININE FOR GFR 0.97 MG/DL (0.55-1.30); GLOMERULAR FILTRATION RATE > 60.0 (>45); GLUCOSE, FASTING 89 MG/DL (74-106); POTASSIUM SERUM 4.6 MMOL/L (3.5-5.1); SODIUM LEVEL 141 MMOL/L (136-145); TOTAL PROTEIN 7.5 G/DL (5.7-8.2)
== END ==
LOC: SKLAB6 07:00
PROVIDERS: ATTEND Internal Medicine
DX: Z51.81 Encounter for therapeutic drug level monitoring (principal); Z79.899 Other long term (current) drug therapy

== ENCOUNTER → 2024-03-15 | Outpatient (REF) | payer MEDICARE, OTHER ==
[~2024-03-15] MED LIST changes: +METH-1386 PO; +METH-1387 PO; -METH10TA PO; -METH25TAB PO
[2024-03-15 10:07] LABS: FREE T4 1.26 NG/DL (0.89-1.76); THYROID STIMULATING HORMONE 0.02 uIU/ML (0.55-4.78)
== END ==
LOC: SKLAB6 07:00
PROVIDERS: ATTEND Internal Medicine
DX: E05.90 Thyrotoxicosis, unspecified without thyrotoxic crisis or storm (principal)

== ENCOUNTER → 2024-04-19 | Outpatient (REF) | payer MEDICARE, OTHER | LOC: SKLAB6 08:19 | PROVIDERS: ATTEND Internal Medicine | DX: Z51.81 Encounter for therapeutic drug level monitoring (principal); Z79.899 Other long term (current) drug therapy ==

== ENCOUNTER → 2024-05-03 | Outpatient (CLI) | payer MEDICARE, OTHER | LOC: M RAD 14:28 | PROVIDERS: ATTEND Nurse Practitioner Adult Health | DX: R10.32 Left lower quadrant pain (principal); Z90.49 Acquired absence of other specified parts of digestive tract; N28.89 Other specified disorders of kidney and ureter; K59.00 Constipation, unspecified; M16.12 Unilateral primary osteoarthritis, left hip ==

== ENCOUNTER → 2024-05-03 | Outpatient (REF) | payer MEDICARE, OTHER ==
[2024-05-03 14:57] LABS: MEAN CORPUSCULAR HEMOGLOBIN 29.9 pg (27.0-33.0); MEAN CORPUSCULAR HGB CONC 31.3 g/dl (32.0-36.5); MEAN CORPUSCULAR VOLUME 95.8 fl (80.0-96.0); PLATELET COUNT, AUTOMATED 191 10^3/uL (150-450); RED BLOOD COUNT 3.34 10^6/uL (4.00-5.40); WHITE BLOOD COUNT 6.8 10^3/uL (4.0-10.0)
[2024-05-03 15:06] LABS: APPEARANCE, URINE MANUAL CLEAR (CLEAR); COLOR, URINE MANUAL YELLOW (YELLOW)
[2024-05-03 15:08] LABS: BILIRUBIN, URINE MANUAL NEGATIVE (NEGATIVE); BLOOD URINE MANUAL NEGATIVE (NEGATIVE); GLUCOSE, URINE (UA) MANUAL NEGATIVE (NEGATIVE); KETONE, URINE MANUAL NEGATIVE (NEGATIVE); LEUKOCYTE ESTERASE, URINE MAN TRACE (NEGATIVE); NITRITE, URINE MANUAL POSITIVE (NEGATIVE); PROTEIN, URINE MANUAL NEGATIVE (NEGATIVE); UROBILINOGEN, URINE MANUAL NORMAL (NORMAL)
[2024-05-03 15:22] LABS: CALCIUM LEVEL 10.5 MG/DL (8.3-10.6); CREATININE FOR GFR 1.17 MG/DL (0.55-1.30); GLOMERULAR FILTRATION RATE 48.8 (>45); POTASSIUM SERUM 4.4 MMOL/L (3.5-5.1)
[2024-05-03 15:28] LABS: RBC, URINE 0-1 /hpf (0-3); SQUAMOUS EPITHELIAL CELL URINE NONE SEEN /hpf (SMALL AMT); TRANSITIONAL EPI CELLS, URINE SMALL AMOUNT /hpf; WBC, URINE 15-20 /hpf (0-3)
[2024-05-03 15:29] LABS: BACTERIA, URINE LARGE AMOUNT; HYALINE CAST, URINE NONE SEEN /lpf (0-1)
== END ==
LOC: SKLAB6 13:54
PROVIDERS: ATTEND Internal Medicine
DX: R10.9 Unspecified abdominal pain (principal)

== ENCOUNTER → 2024-05-09 | Outpatient (REF) | payer MEDICARE, OTHER ==
[2024-05-09 07:53] LABS: HEMATOCRIT 30.4 % (36.0-47.0); HEMOGLOBIN 9.7 g/dl (12.0-15.5); MEAN CORPUSCULAR HEMOGLOBIN 30.4 pg (27.0-33.0); MEAN CORPUSCULAR HGB CONC 31.9 g/dl (32.0-36.5); MEAN CORPUSCULAR VOLUME 95.3 fl (80.0-96.0); PLATELET COUNT, AUTOMATED 199 10^3/uL (150-450); RED BLOOD COUNT 3.19 10^6/uL (4.00-5.40); WHITE BLOOD COUNT 6.1 10^3/uL (4.0-10.0)
[2024-05-09 08:24] LABS: CALCIUM LEVEL 10.5 MG/DL (8.3-10.6); CREATININE FOR GFR 1.12 MG/DL (0.55-1.30); GLOMERULAR FILTRATION RATE 51.3 (>45); POTASSIUM SERUM 4.3 MMOL/L (3.5-5.1)
== END ==
LOC: SKLAB6 07:00
PROVIDERS: ATTEND Internal Medicine
DX: N18.9 Chronic kidney disease, unspecified (principal)

== ENCOUNTER → 2024-06-14 | Outpatient (REF) | payer MEDICARE, OTHER ==
[2024-06-14 07:14] LABS: FREE T4 0.94 NG/DL (0.89-1.76); THYROID STIMULATING HORMONE 0.783 uIU/ML (0.55-4.78)
== END ==
LOC: SKLAB6 07:00
PROVIDERS: ATTEND Internal Medicine
DX: E05.90 Thyrotoxicosis, unspecified without thyrotoxic crisis or storm (principal)

== ENCOUNTER → 2024-07-12 | Outpatient (REF) | payer MEDICARE, OTHER ==
[2024-07-12 07:31] LABS: DIGOXIN LEVEL 0.7 NG/ML (0.8-2.0)
[2024-07-12 07:32] LABS: ALBUMIN 2.3 G/DL (3.2-5.2); BILIRUBIN,TOTAL 0.2 MG/DL (0.3-1.2); CALCIUM LEVEL 9.7 MG/DL (8.3-10.6); CHOLESTEROL RISK RATIO 4.83 (<5); CREATININE FOR GFR 1.2 MG/DL (0.55-1.30); HDL CHOLESTEROL 23.8 MG/DL (>40); LDL CHOLESTEROL 69.4 MG/DL (<100); NON-HDL-C 91.2 MG/DL; POTASSIUM SERUM 4.5 MMOL/L (3.5-5.1); TOTAL PROTEIN 6.7 G/DL (5.7-8.2)
== END ==
LOC: SKLAB6 07:00
PROVIDERS: ATTEND Internal Medicine
DX: D64.9 Anemia, unspecified (principal); Z51.81 Encounter for therapeutic drug level monitoring; Z79.899 Other long term (current) drug therapy

== ENCOUNTER 2024-08-19 17:54 | Emergency (ER) | payer MEDICARE, OTHER ==
[~2024-08-19] VITALS: Ht 167.6 cm; Wt 92.8 kg
[~2024-08-19 17:54] MED LIST changes: -BUPR-597 PO; +BUPR-766 PO
[2024-08-19 18:31] LABS: BASO % 0.5 % (0.0-1.0); EOS # 0.2 10^3/uL (0.0-0.5); EOS % 2.3 % (0.0-3.0); HEMATOCRIT 30.7 % (36.0-47.0); HEMOGLOBIN 9.6 g/dl (12.0-15.5); LYMPH # 1.5 10^3/uL (1.5-5.0); LYMPH % 23.2 % (24.0-44.0); MEAN CORPUSCULAR HEMOGLOBIN 30.6 pg (27.0-33.0); MEAN CORPUSCULAR HGB CONC 31.3 g/dl (32.0-36.5); MEAN CORPUSCULAR VOLUME 97.8 fl (80.0-96.0); MONO # 0.6 10^3/uL (0.0-0.8); MONO % 8.6 % (2.0-8.0); NEUTROPHILS # 4.3 10^3/uL (1.5-8.5); NEUTROPHILS % 65.2 % (36.0-66.0); PLATELET COUNT, AUTOMATED 195 10^3/uL (150-450); RED BLOOD COUNT 3.14 10^6/uL (4.00-5.40); WHITE BLOOD COUNT 6.6 10^3/uL (4.0-10.0)
[2024-08-19 19:01] LABS: CK-MB VALUE MASS < 1.0 NG/ML (<3.6); LIPASE 42 U/L (12-53)
[2024-08-19 19:02] LABS: CPK CREATINE PHOSPHOKINASE 22 U/L (34-145); MB/CK RELATIVE INDEX 4.54 (< OR =4)
[2024-08-19 19:03] LABS: ALBUMIN 2.9 G/DL (3.2-5.2); ALKALINE PHOSPHATASE 64 U/L (35-104); ALT/SGPT 21 U/L (7.0-40); AST/SGOT 15 U/L (<34); BILIRUBIN,DIRECT 0.1 MG/DL (<0.4); BILIRUBIN,TOTAL 0.3 MG/DL (0.3-1.2); BLOOD UREA NITROGEN 63 MG/DL (9-23); CALCIUM LEVEL 10.3 MG/DL (8.3-10.6); CARBON DIOXIDE LEVEL 28 MMOL/L (20-31); CHLORIDE LEVEL 106 MMOL/L (98-107); CREATININE FOR GFR 1.31 MG/DL (0.55-1.30); GLOMERULAR FILTRATION RATE 44.1 (>45); GLUCOSE, FASTING 87 MG/DL (74-106); POTASSIUM SERUM 4.3 MMOL/L (3.5-5.1); SODIUM LEVEL 144 MMOL/L (136-145)
[2024-08-19] MEDS ORDERED: ISOVUE-370 76% 100ML VIAL As Ordered ONE (19:29)
[2024-08-19 20:22] LABS: CK-MB VALUE MASS < 1.0 NG/ML (<3.6)
[2024-08-19 20:29] LABS: CPK CREATINE PHOSPHOKINASE 28 U/L (34-145); MB/CK RELATIVE INDEX 3.57 (< OR =4)
[2024-08-19 22:14] LABS: CK-MB VALUE MASS < 1.0 NG/ML (<3.6)
[2024-08-19 22:16] LABS: CPK CREATINE PHOSPHOKINASE 31 U/L (34-145); MB/CK RELATIVE INDEX 3.22 (< OR =4)
[2024-08-19 22:22] VITALS: O2SAT 95
[2024-08-19 22:31] VITALS: BP 108/55
[2024-08-19 22:41] VITALS: TEMP 98
== END 2024-08-19 22:45 | disposition home or self-care (01) ==
LOC: M ED 17:54
DX: R07.9 Chest pain, unspecified (principal); I48.91 Unspecified atrial fibrillation; I11.0 Hypertensive heart disease with heart failure; I50.9 Heart failure, unspecified; R94.31 Abnormal electrocardiogram [ECG] [EKG]; F32.A Depression, unspecified; E66.9 Obesity, unspecified; Z68.33 Body mass index [BMI] 33.0-33.9, adult; Z86.718 Personal history of other venous thrombosis and embolism; I73.9 Peripheral vascular disease, unspecified; E03.9 Hypothyroidism, unspecified; Z87.891 Personal history of nicotine dependence; Z88.6 Allergy status to analgesic agent; E07.89 Other specified disorders of thyroid; Z79.01 Long term (current) use of anticoagulants; Z79.899 Other long term (current) drug therapy
CPT/HCPCS: 36415; 71045; 71275; 80048; 80076; 82550; 82553; 83690; 84484; 85025; 93005; 93041; 94760; 99285; Q9967

== ENCOUNTER → 2025-01-03 | Outpatient (CLI) | payer MEDICARE, OTHER | LOC: M RAD 13:04 | PROVIDERS: ATTEND Nurse Practitioner | DX: R22.42 Localized swelling, mass and lump, left lower limb (principal) ==

== ENCOUNTER → 2025-01-17 | Outpatient (REF) | payer MEDICARE, OTHER ==
[2025-01-17 08:48] LABS: ALT/SGPT 12.0 U/L (7.0-40); AST/SGOT 13.0 U/L (<34); CALCIUM LEVEL 10.1 MG/DL (8.3-10.6); CARBON DIOXIDE LEVEL 25.0 MMOL/L (20-31); CHLORIDE LEVEL 108.0 MMOL/L (98-107); CREATININE FOR GFR 1.13 MG/DL (0.55-1.30); DIGOXIN LEVEL 0.8 NG/ML (0.8-2.0); GLOMERULAR FILTRATION RATE 52.3 (>39); POTASSIUM SERUM 4.4 MMOL/L (3.5-5.1); SODIUM LEVEL 144.0 MMOL/L (136-145)
== END ==
LOC: SKLAB6 07:00
PROVIDERS: ATTEND Family Medicine
DX: D64.9 Anemia, unspecified (principal); Z51.81 Encounter for therapeutic drug level monitoring; Z79.899 Other long term (current) drug therapy

== ENCOUNTER → 2025-03-13 | Outpatient (REF) | payer MEDICARE, OTHER ==
[~2025-03-13] MED LIST changes: +BUPR-363 PO; -BUPR75TA5 PO
== END ==
LOC: SKLAB6 10:44
PROVIDERS: ATTEND Family Medicine
DX: Z11.2 Encounter for screening for other bacterial diseases (principal); Z20.818 Contact with and (suspected) exposure to other bacterial communicable diseases